=== PATIENT | male | born 1955 ===

== ENCOUNTER 2017-07-25 21:48 | Inpatient (IN) | payer MEDICARE, MEDICAID ==
[2017-07-25] MEDS ORDERED: Piperacillin/Tazobact 3.375 GM in Sodium Chloride 100 ML IVPB STA (22:02)
[2017-07-25] MEDS ORDERED: Vancomycin 1 gm/NS 200 ml 1 GM/200 ML BAG IVPB STA (22:02)
--- NOTE | 2017-07-25 22:04 | C.PDOC ---
History Of Present Illness Patient presents to the ER via EMS from home after he has been coughing intermittently for the past week and grew increasingly SOB tonight. Patient is nonverbal with some right sided weakness from a prior CVA in 2007. Patient is in acute respiratory distress, Hx was obtained from daughter. Time Seen by Provider: 07/25/17 22:01 Chief Complaint (Nursing): Shortness Of Breath History Per: Family History/Exam Limitations: clinical condition Onset/Duration Of Symptoms: Days Current Symptoms Are (Timing): Worse Initiating Event: Other (Not known) Exacerbating Factor(s): Coughing Current Respiratory Medications: See Home Med List Severity: Severe Pain Scale Rating Of: 9 Associated Symptoms: Fever, Chills, Sweating, Productive Cough, Heart Racing Reports Recently: Seen In ED, Treated By A Physician, Hospitalized Recent travel outside of the [place]: No Additional History Per: Family Past Medical History Reviewed: Historical Data, Nursing Documentation, Vital Signs Vital Signs: Last Vital Signs Temp 101.7 F H 07/25/17 22:04 Pulse 138 H 07/25/17 21:54 Resp 24 07/25/17 21:54 BP 95/50 L 07/25/17 21:54 Pulse Ox 85 L 07/25/17 22:49 - Medical History PMH: Alzheimer's Disease, Anxiety, Arthritis, Bipolar Disorder, CVA, Dementia, Diabetes, Fractures (non displaced avulsion fracture of right talus), HTN, Hypercholesterolemia Surgical History: Appendectomy - [facility] MEASUREMENT OF URINARY PRESSURE, VIA OPENING (01/17/17) PSYCHIA INTERV/EVAL NEC (08/24/14) RESECTION OF PROSTATE, ENDO (01/17/17) Family History: States: Unknown Family Hx - Social History Hx Tobacco Use: No Hx Alcohol Use: No Hx Substance Use: No - Immunization History Hx Tetanus Toxoid Vaccination: No Hx Influenza Vaccination: No Hx Pneumococcal Vaccination: No Review Of Systems Review Of Systems: ROS cannot be obtained secondary to pt's inabilty to answer questions. Physical Exam - Physical Exam Appears: In Acute Distress Skin: Diaphoretic Head: Normacephalic Eye(s): bilateral: Normal Inspection Oral Mucosa: Dry Lips: Other (Dry) Neck: Trachea Midline, Supple Lymphatic: No Adenopathy Chest: Symmetrical, No Tenderness Cardiovascular: Rhythm Regular (Tachycardic) Respiratory: Decreased Breath Sounds, No Rales, Rhonchi (Diffuse), No Wheezing Gastrointestinal/Abdominal: Bowel Sounds (Good), Soft, Distention Back: No CVA Tenderness Extremity: No Pedal Edema Extremity: Bilateral: Atraumatic, No Pedal Edema Pulses: Left Dorsalis Pedis: Normal, Right Dorsalis Pedis: Normal Neurological/Psych: Expressive Aphasia (Moans), Other (Decreased strength to the right side) Gait: Unable To Assess ED Course And Treatment - Laboratory Results Result Diagrams: 07/25/17 22:12 07/25/17 22:12 ECG: Interpreted By Me, Viewed By Me ECG Rhythm: Sinus Tachycardia (113), Nonspecific Changes O2 Sat by Pulse Oximetry: 85 Pulse Ox Interpretation: Abnormal (placed on bipap) - Radiology CXR: Interpreted by Me, Viewed By Me CXR Interpretation: Yes: Infiltrates (rll). No: Fracture, Pnemothorax Progress Note: blood work/septic work up. code sepsis called. spoke with dr heath/[facility] - will come and see the pt. accepted to [facility] Critical Care Time - Critical Care Note Total Time (in mins): 30 Documented critical care: time excludes all time spent performing seperately billable procedures. Disposition Discussed With : Bahman Urbina Comment: accepted the pt on his service and took over the care at10:50 PM Doctor Will See Patient In The: Hospital Counseled Patient/Family Regarding: Studies Performed, Diagnosis - Disposition Disposition: HOSPITALIZED Disposition Time: 22:01 Condition: CRITICAL Forms: [facility] (Paraguayan) - POA Present On Arrival: Poor Glycemic Control - Clinical Impression Clinical Impression: Respiratory distress, History of CVA (cerebrovascular accident), Pneumonia, Sepsis - Scribe Statement The provider has reviewed the documentation as recorded by the Scribsascha Bingham All medical record entries made by the Scribe were at my direction and personally dictated by me. I have reviewed the chart and agree that the record accurately reflects my personal performance of the history, physical exam, medical decision making, and the department course for this patient. I have also personally directed, reviewed, and agree with the discharge instructions and disposition. Decision To Admit - Pt Status Changed To: Hospital Disposition Of: Inpatient - Admit Certification Admit to Inpatient:: After my assessment, the patient will require hospitalization for at least two midnights. This is because of the severity of symptoms shown, intensity of services needed, and/or the medical risk in this patient being treated as an outpatient. - InPatient: Physician Admission Certification: I certify that this patient requires 2 or more midnights of care for the following reason:: After my assessment, the patient will require hospitalization for at least two midnights. This is because of the severity of symptoms shown, intensity of services needed, and/or the medical risk in this patient being treated as an outpatient. - . Bed Request Type: ICU Admitting Physician: Bahman Urbina Patient Diagnosis: Respiratory distress, History of CVA (cerebrovascular accident), Pneumonia, Sepsis
[2017-07-25] MEDS ORDERED: Sodium Chloride 0.9% 1,000 ML IV ONE (22:10)
[2017-07-25 22:17] LABS: VENOUS BLOOD GAS BASE EXCESS -3.3 mmol/L (0.0-2.0); VENOUS BLOOD GAS PCO2 40 mmHg (40-60); VENOUS BLOOD PH 7.35 (7.32-7.43)
[2017-07-25 22:22] LABS: BASO % 0.3 % (0.0-2.0); EOS % 0.1 % (0.0-4.0); HEMATOCRIT 30.3 % (35.0-51.0); LYMPH # 1.4 K/uL (1.0-4.3); LYMPH % 16.3 % (20.0-40.0); MEAN CORPUSCULAR HEMOGLOBIN 27.9 pg (27.0-31.0); MEAN CORPUSCULAR HGB CONC 33.5 g/dL (33.0-37.0); MEAN PLATELET VOLUME 10.2 fL (7.2-11.7); MONO # 0.5 K/uL (0.0-0.8); MONO % 5.9 % (0.0-10.0); RED CELL DISTRIBUTION WIDTH 13.7 % (11.5-14.5); WHITE BLOOD COUNT 8.5 K/uL (4.8-10.8)
[2017-07-25 22:24] LABS: MEAN CELL VOLUME 83.1 fL (80.0-94.0)
[2017-07-25 22:28] LABS: INR 1.2
[2017-07-25 22:31] LABS: BILIRUBIN,TOTAL 0.7 mg/dL (0.2-1.3); CALCIUM 8.8 mg/dl (8.6-10.4); MAGNESIUM 1.7 mg/dL (1.6-2.3); POTASSIUM 5.1 mmol/L (3.6-5.2); TOTAL PROTEIN 6.9 g/dL (6.3-8.3)
[2017-07-25] MEDS ORDERED: Piperacillin/Tazobact 3.375 gm 100 ML IVPB ONE (22:32)
[2017-07-25 22:37] LABS: ABG ALLEN TEST POS; ARTERIAL BLOOD GAS MODE BiPAP; DRAW SITE RRA
[2017-07-25] MEDS ORDERED: Sodium Chloride 0.9% 1,000 ML ONE (22:37)
[2017-07-25] MEDS: Albuterol-Ipratrop 3 mg / 0.5 (3 ml) UD IH SCH ×2 (22:40→22:57)
[2017-07-25] MEDS ORDERED: Albuterol-Ipratrop 3 mg / 0.5 (3 ml) UD ONE (22:41)
[2017-07-25 22:43] LABS: TROPONIN I 0.02 ng/mL (0.00-0.120)
[2017-07-25] MEDS ORDERED: Enoxaparin 40 mg Syringe SC STA (22:48)
[2017-07-25] MEDS ORDERED: Vancomycin 1 GM 1 GM/250 ML BAG IVPB ONE ×2 (23:00→23:12)
[2017-07-25] MEDS ORDERED: Enoxaparin 80 mg Syringe ONE (23:06)
[2017-07-25 23:50] LABS: RBC URINE 2 /hpf (0-3); TRANSITIONAL EPITHIAL < 1 /hpf (0-3); URINE BACTERIA OCC (<OCC); URINE BILIRUBIN NEGATIVE (NEGATIVE); URINE BLOOD NEGATIVE (NEGATIVE); URINE COLOR Yellow (YELLOW); URINE GLUCOSE (UA) 1+ mg/dL (Normal); URINE KETONE NEGATIVE (NEGATIVE); URINE LEUKOCYTE ESTERASE NEG Leu/uL (Negative); URINE PROTEIN 1+ mg/dL (NEGATIVE); URINE UROBILINOGEN NORMAL mg/dL (0.2-1.0); WBC URINE 1 /hpf (0-5)
--- NOTE | 2017-07-26 00:37 | CP.PCM.CON ---
History of Present Illness - History of Present Illness History of Present Illness: Chief complaint: Fever chills or shortness of breath History present illness: 61-year-old male with history of CVA, right-sided weakness, bipolar disease, dementia, diabetes, hypertension, hypercholesterolemia, weakness came to the emergency room with worsening shortness of breath. According to the family he was having some cough, and also mucus production, fever slowly got worse. Last night patient started having increasing shortness of breath, more lethargic , and fever high, and chills noted. Because of the worsening shortness of breath the patient was brought into the emergency room by the family member. In the emergency room patient had a high fever, chills, tachycardia, tachypnea, hypoxia, immediately patient was given oxygen, IV fluid and code sepsis started. With the BiPAP and oxygen patient showed some improvement. Fever got better. Patient was brought to the intensive care unit. Past medical history: Dementia hypertension CVA right-sided weakness bipolar disease hypertension hypercholesterolemia Surgical history appendectomy Allergies no known drug allergy Personal history reviewed from the chart Allergy no known drug allergy Family history noncontributory No history of smoking history noted. Review of system: Patient is currently awake and responding. Expressive aphagia noted. Right-sided weakness noted On BiPAP. Coughing noted, but mucus production is very less On examination: Improvement in the tachycardia, and also respiratory symptoms are improving. Chest bilateral rhonchi and wheezing noted. Regular heart sound, sinus minimal tachycardia Abdomen soft nontender. Extended is no pedal edema [employer] awake and alert, but unable to complicated, right-sided weakness noted. Labs reviewed Mild elevation of the WBC noted, significant AA gradient noted, chest x-ray right lower lung infiltrative changes noted Assessment and recommendation: 61-year-old male with history of CVA hypertension and hypercholesteremia and diabetes. Patient admitted now with the severe sepsis, complicated with the minimal hypertension. Likely secondary to pneumonia, underlying aspiration cannot be ruled out. Empirical antibiotic started, Vanco and Zosyn. IV fluid. Gentle hydration. Fever control. BiPAP. Glucose control. DVT and GI prophylaxis. Discussed with the family. Continue to monitor and intensive care unit. We'll keep him nothing by mouth, will follow the patient by ICU team Past Patient History - Infectious Disease Hx of Infectious Diseases: None - Past Medical History & Family History Past Medical History?: Yes - Past Social History Smoking Status: Unknown If Ever Smoked - CARDIAC Hx Hypercholesterolemia: Yes Hx Hypertension: Yes - PULMONARY Hx Respiratory Disorders: No - NEUROLOGICAL Hx Alzheimer's Disease: Yes Hx Dementia: Yes - HEENT Hx HEENT Problems: Yes Hx Cataracts: Yes (Both Cataract Surgery) - RENAL Hx Chronic Kidney Disease: No - ENDOCRINE/METABOLIC Hx Diabetes Mellitus Type 2: Yes - HEMATOLOGICAL/ONCOLOGICAL Hx Blood Disorders: No - INTEGUMENTARY Hx Dermatological Problems: No - MUSCULOSKELETAL/RHEUMATOLOGICAL Hx Arthritis: Yes Hx Fractures: Yes (non displaced avulsion fracture of right talus) - GASTROINTESTINAL Hx Gastrointestinal Disorders: No Hx Gastroesophageal Reflux: Yes - GENITOURINARY/GYNECOLOGICAL Hx Genitourinary Disorders: Yes Hx Prostate Problems: Yes (BPH) Other/Comment: Prostate Problem-taking Flomax @ home - PSYCHIATRIC Hx Anxiety: Yes Hx Bipolar Disorder: Yes Hx Substance Use: No - SURGICAL HISTORY Hx Appendectomy: Yes - ANESTHESIA Hx Anesthesia: Yes Hx Anesthesia Reactions: No Hx Malignant Hyperthermia: No Meds Allergies/Adverse Reactions: Allergies Allergy/AdvReac Type Severity Reaction Status Date / Time No Known Allergies Allergy Verified 01/15/17 08:52 - Medications Medications: Current Medications Acetaminophen (Tylenol 650 Mg Supp) 650 mg MO Q6 PRN PRN Reason: Temperature Albuterol/Ipratropium (Duoneb 3 Mg/0.5 Mg (3 Ml) Ud) 3 ml INH RQ6 [facility] Aspirin (Ecotrin) 81 mg PO DAILY [facility] Enoxaparin Sodium (Lovenox) 40 mg SC DAILY [facility] Piperacillin Sod/Tazobactam Sod (Zosyn 2.25 Gm Iv Premix) 2.25 gm in 50 mls @ 100 mls/hr IVPB Q6H [facility] Sodium Chloride (Sodium Chloride 0.9%) 1,000 mls @ 100 mls/hr IV .Q10H [facility] Vancomycin HCl 1 gm/ Sodium (Chloride) 250 mls @ 166.7 mls/hr IVPB Q24H [facility] Levetiracetam 500 mg/ Dextrose 105 mls @ 420 mls/hr IVPB Q12H [facility] Pantoprazole Sodium (Protonix Inj) 40 mg IVP DAILY [facility] Tamsulosin HCl (Flomax) 0.4 mg PO DAILY [facility] Valproate Sodium (Depakene Oral Soln) 250 mg PO BID [facility] Results - Vital Signs Recent Vital Signs: Last Vital Signs Temp 101.7 F H 09/06/17 22:04 Pulse 105 H 07/26/17 00:02 Resp 24 07/26/17 00:02 BP 86/56 L 07/26/17 00:02 Pulse Ox 100 07/26/17 00:02 - Labs Result Diagrams: 07/25/17 22:12 07/25/17 22:12 Labs: Laboratory Results - last 24 hr 07/25/17 23:39 Urine Color Yellow Urine Clarity Hazy Urine pH 5.0 Ur Specific [place] 1.018 Urine Protein 1+ H Urine Glucose (UA) 1+ H Urine Ketones Negative Urine Blood Negative Urine Nitrate Negative Urine Bilirubin Negative Urine Urobilinogen Normal Ur Leukocyte Esterase Neg Urine WBC (Auto) 1 Urine RBC (Auto) 2 Ur Squamous Epith Cells < 1 Ur Transition Epith Cell < 1 Urine Bacteria Occ H Hyaline Casts 3-5 H
[2017-07-26] MEDS ORDERED: Sodium Chloride 0.9% 1,000 ML IV SCH (00:45)
[2017-07-26] MEDS: Piperacill/Tazo 2.25gm in Dex 2.25 GM/50 ML BAG IVPB SCH ×4 (01:18→17:48)
[2017-07-26] MEDS: Sodium Chloride 0.9% 1,000 ML IV SCH ×4 (01:19→23:05)
[2017-07-26] MEDS: Albuterol-Ipratrop 3 mg / 0.5 (3 ml) UD INH SCH ×4 (01:20→19:38)
[2017-07-26 01:43] LABS: VENOUS BLOOD GAS BASE EXCESS -5.6 mmol/L (0.0-2.0); VENOUS BLOOD GAS MODE BiPAP; VENOUS BLOOD GAS PCO2 39 mmHg (40-60); VENOUS BLOOD PH 7.32 (7.32-7.43)
[2017-07-26] MEDS: levETIRAcetam 500 MG in Sodium Chloride 0.9% 100 ML IVPB SCH ×2 (02:01→13:15)
[2017-07-26 05:42] LABS: BASO % 0.2 % (0.0-2.0); EOS % 0.2 % (0.0-4.0); HEMATOCRIT 28.1 % (35.0-51.0); LYMPH # 0.6 K/uL (1.0-4.3); LYMPH % 8.2 % (20.0-40.0); MEAN CELL VOLUME 84.3 fL (80.0-94.0); MEAN CORPUSCULAR HEMOGLOBIN 27.7 pg (27.0-31.0); MEAN CORPUSCULAR HGB CONC 32.8 g/dL (33.0-37.0); MEAN PLATELET VOLUME 10.7 fL (7.2-11.7); MONO # 0.3 K/uL (0.0-0.8); NRBC % 0.1 % (0.0-2.0); PLATELET COUNT 121 K/uL (130-400); RED CELL DISTRIBUTION WIDTH 13.7 % (11.5-14.5); WHITE BLOOD COUNT 6.8 K/uL (4.8-10.8)
[2017-07-26 05:51] LABS: ABG ALLEN TEST POS; ARTERIAL BLOOD GAS MODE BiPAP; CARBOXYHEMOGLOBIN 1.3 % (0.5-1.5); DRAW SITE RR; HHB -0.2 % (0.0-5.0); METHEMOGLOBIN 0.9 % (0.0-3.0)
[2017-07-26 06:06] LABS: ALB/GLOB RATIO 0.9 (1.0-2.1); BILIRUBIN,TOTAL 0.6 mg/dL (0.2-1.3); CALCIUM 7.8 mg/dl (8.6-10.4); TOTAL PROTEIN 6.2 g/dL (6.3-8.3)
[2017-07-26 08:45] LABS: BASOPHIL 1 % (0-2); NEUTROPHIL 30 % (50-75); TOTAL CELLS COUNTED 100
--- NOTE | 2017-07-26 08:49 | RAD ---
PROCEDURE: CHEST RADIOGRAPH, 1 VIEW HISTORY: SOB COMPARISON: 01/15/2017 FINDINGS: LUNGS: The lungs are well inflated. There is bibasilar atelectasis. No focal consolidation. PLEURA: No pneumothorax or pleural fluid seen. CARDIOVASCULAR: Normal. OSSEOUS STRUCTURES: No significant abnormalities. VISUALIZED UPPER ABDOMEN: Normal. OTHER FINDINGS: None. IMPRESSION: No active pulmonary disease.
[2017-07-26] MEDS ORDERED: Enoxaparin 40 mg Syringe SC SCH (10:00)
[2017-07-26] MEDS ORDERED: (Novolin R) Insulin Human Regular 100 units/ml vial IV ONE (10:15)
[2017-07-26] MEDS ORDERED: Sodium Polystyrene Sulfonate Enema 30 gm/120 ml PR ONE (10:15)
[2017-07-26] MEDS: Valproic Acid 250 mg/5 ml UD Cup PO SCH ×2 (10:33→17:23)
[2017-07-26] MEDS: (Novolin R) Insulin Human Regular 100 units/ml vial SC SCH ×3 (11:30→23:00)
--- NOTE | 2017-07-26 12:27 | CARD ---
APPROVED REPORT EKG Measurement Heart [id number] <Conclusion> Sinus tachycardia Otherwise normal ECG
[2017-07-26 15:47] LABS: BASO % 0.1 % (0.0-2.0); HEMATOCRIT 25.8 % (35.0-51.0); LYMPH # 0.5 K/uL (1.0-4.3); LYMPH % 5.7 % (20.0-40.0); MEAN CELL VOLUME 82.8 fL (80.0-94.0); MEAN CORPUSCULAR HEMOGLOBIN 27.9 pg (27.0-31.0); MEAN CORPUSCULAR HGB CONC 33.7 g/dL (33.0-37.0); MEAN PLATELET VOLUME 9.2 fL (7.2-11.7); MONO # 0.3 K/uL (0.0-0.8); MONO % 3.5 % (0.0-10.0); PLATELET COUNT 122 K/uL (130-400); RED CELL DISTRIBUTION WIDTH 13.7 % (11.5-14.5); WHITE BLOOD COUNT 9.4 K/uL (4.8-10.8)
[2017-07-26 16:17] LABS: POTASSIUM 4.5 mmol/L (3.6-5.2)
[2017-07-26 16:19] LABS: BILIRUBIN,TOTAL 0.4 mg/dL (0.2-1.3); TOTAL PROTEIN 6.4 g/dL (6.3-8.3)
--- NOTE | 2017-07-26 17:22 | CP.PCM.HP ---
Past Patient History - Infectious Disease Hx of Infectious Diseases: None - Past Medical History & Family History Past Medical History?: Yes - Past Social History Smoking Status: Never Smoked - CARDIAC Hx Hypercholesterolemia: Yes Hx Hypertension: Yes - PULMONARY Hx Respiratory Disorders: No - NEUROLOGICAL HX Cerebrovascular Accident: Yes (right side weakness) - HEENT Hx HEENT Problems: Yes Hx Cataracts: Yes (Both Cataract Surgery) - RENAL Hx Chronic Kidney Disease: No - ENDOCRINE/METABOLIC Hx Diabetes Mellitus Type 2: Yes - HEMATOLOGICAL/ONCOLOGICAL Hx Blood Disorders: No - INTEGUMENTARY Hx Dermatological Problems: No - MUSCULOSKELETAL/RHEUMATOLOGICAL Hx Musculoskeletal Disorders: Yes Hx Arthritis: Yes Hx Falls: No Hx Fractures: Yes (non displaced avulsion fracture of right talus) - GASTROINTESTINAL Hx Gastrointestinal Disorders: Yes Hx Gastroesophageal Reflux: Yes - GENITOURINARY/GYNECOLOGICAL Hx Genitourinary Disorders: Yes Hx Prostate Problems: Yes (BPH) Other/Comment: Prostate Problem-taking Flomax @ home - PSYCHIATRIC Hx Psychophysiologic Disorder: Yes Hx Anxiety: Yes Hx Bipolar Disorder: Yes Hx Substance Use: No - SURGICAL HISTORY Hx Surgeries: Yes Hx Appendectomy: Yes - ANESTHESIA Hx Anesthesia: Yes Hx Anesthesia Reactions: No Hx Malignant Hyperthermia: No Meds Allergies/Adverse Reactions: Allergies Allergy/AdvReac Type Severity Reaction Status Date / Time No Known Allergies Allergy Verified 01/15/17 08:52 Physical Exam - Constitutional Appears: Well - Head Exam Head Exam: ATRAUMATIC, NORMAL INSPECTION, NORMOCEPHALIC - Eye Exam Eye Exam: EOMI, Normal appearance, PERRL Pupil Exam: NORMAL ACCOMODATION, PERRL - ENT Exam ENT Exam: Mucous Membranes Moist, Normal Exam - Neck Exam Neck exam: Positive for: Normal Inspection - Respiratory Exam Respiratory Exam: Decreased Breath Sounds - Cardiovascular Exam Cardiovascular Exam: REGULAR RHYTHM, +S1, +S2 - GI/Abdominal Exam GI & Abdominal Exam: Diminished Bowel Sounds, Soft - Rectal Exam Rectal Exam: Deferred Results - Vital Signs Recent Vital Signs: Last Vital Signs Temp 99.5 F 07/26/17 00:30 Pulse 90 07/26/17 07:03 Resp 14 07/26/17 07:03 BP 149/79 07/26/17 07:03 Pulse Ox 100 07/26/17 03:04 - Labs Result Diagrams: 07/26/17 15:44 07/26/17 15:44 Labs: Laboratory Results - last 24 hr 07/25/17 07/25/17 07/26/17 22:52 23:39 01:40 WBC RBC Hgb Hct MCV MCH MCHC RDW Plt Count MPV Neut % (Auto) Lymph % (Auto) [place] % (Auto) Eos % (Auto) Baso % (Auto) Neut # Lymph # [place] # Eos # Baso # Neutrophils % (Manual) Band Neutrophils % Lymphocytes % (Manual) Monocytes % (Manual) Basophils % (Manual) Platelet Estimate Hypochromasia (manual) Poikilocytosis (manual Anisocytosis (manual) [place] Cells Puncture Site pCO2 pO2 133 H HCO3 ABG pH ABG Total CO2 ABG O2 Saturation ABG Base Excess ABG Hemoglobin ABG Carboxyhemoglobin POC ABG HHb (Measured) ABG Methemoglobin Ruiz Test VBG pH 7.32 VBG pCO2 39 L VBG HCO3 20.6 VBG Total CO2 21.3 L VBG O2 Sat (Calc) 99.8 H VBG Base Excess -5.6 L VBG Potassium 5.6 H A-a O2 Difference Respiratory Index Hgb O2 Saturation Sodium 128.0 L Chloride 102.0 Glucose 375 H Lactate 1.5 Vent Mode FiO2 100.0 Inspiratory BiPAP Expiratory BiPAP 8 Potassium Carbon Dioxide Anion Gap BUN Creatinine Est GFR ( Amer) Est GFR (Non-Af Amer) POC Glucose (mg/dL) Random Glucose Calcium Total Bilirubin AST ALT Alkaline Phosphatase Total Creatine Kinase CK-MB (Mass) Troponin I, Quant Total Protein Albumin Globulin Albumin/Globulin Ratio Procalcitonin 10.99 H Venous Blood Potassium 5.6 H Urine Color Yellow Urine Clarity Hazy Urine pH 5.0 Ur Specific [place] 1.018 Urine Protein 1+ H Urine Glucose (UA) 1+ H Urine Ketones Negative Urine Blood Negative Urine Nitrate Negative Urine Bilirubin Negative Urine Urobilinogen Normal Ur Leukocyte Esterase Neg Urine WBC (Auto) 1 Urine RBC (Auto) 2 Ur Squamous Epith Cells < 1 Ur Transition Epith Cell < 1 Urine Bacteria Occ H Hyaline Casts 3-5 H 07/26/17 07/26/17 07/26/17 05:16 05:39 05:39 WBC 6.8 RBC 3.34 L Hgb 9.2 L Hct 28.1 L MCV 84.3 MCH 27.7 MCHC 32.8 L RDW 13.7 Plt Count 121 L D MPV 10.7 Neut % (Auto) 86.4 H Lymph % (Auto) 8.2 L [place] % (Auto) 5.0 Eos % (Auto) 0.2 Baso % (Auto) 0.2 Neut # 5.9 Lymph # 0.6 L [place] # 0.3 Eos # 0.0 Baso # 0.0 Neutrophils % (Manual) 30 L Band Neutrophils % 43 H* Lymphocytes % (Manual) 17 L Monocytes % (Manual) 9 Basophils % (Manual) 1 Platelet Estimate Slightly decreased L Hypochromasia (manual) Slight Poikilocytosis (manual Slight Anisocytosis (manual) Slight [place] Cells Slight Puncture Site Rr pCO2 38 pO2 477 H HCO3 19.0 L ABG pH 7.29 L ABG Total CO2 19.5 L ABG O2 Saturation 100.2 H ABG Base Excess -7.7 L ABG Hemoglobin 9.9 L ABG Carboxyhemoglobin 1.3 POC ABG HHb (Measured) -0.2 L ABG Methemoglobin 0.9 Ruiz Test Pos VBG pH VBG pCO2 VBG HCO3 VBG Total CO2 VBG O2 Sat (Calc) VBG Base Excess VBG Potassium A-a O2 Difference 189.0 Respiratory Index 0.4 Hgb O2 Saturation 98.0 Sodium 131 L Chloride 98 Glucose Lactate Vent Mode Bipap FiO2 100.0 Inspiratory BiPAP 16 Expiratory BiPAP 8 Potassium 6.0 H Carbon Dioxide 19 L Anion Gap 20 BUN 26 H Creatinine 1.8 H Est GFR ( Amer) 47 Est GFR (Non-Af Amer) 39 POC Glucose (mg/dL) Random Glucose 372 H Calcium 7.8 L Total Bilirubin 0.6 AST 22 ALT 28 Alkaline Phosphatase 72 Total Creatine Kinase 96 CK-MB (Mass) 2.02 Troponin I, Quant 0.0130 Total Protein 6.2 L Albumin 2.9 L Globulin 3.2 Albumin/Globulin Ratio 0.9 L Procalcitonin Venous Blood Potassium Urine Color Urine Clarity Urine pH Ur Specific [place] Urine Protein Urine Glucose (UA) Urine Ketones Urine Blood Urine Nitrate Urine Bilirubin Urine Urobilinogen Ur Leukocyte Esterase Urine WBC (Auto) Urine RBC (Auto) Ur Squamous Epith Cells Ur Transition Epith Cell Urine Bacteria Hyaline Casts 07/26/17 07/26/17 07/26/17 11:53 15:44 15:44 WBC 9.4 RBC 3.11 L Hgb 8.7 L Hct 25.8 L MCV 82.8 MCH 27.9 MCHC 33.7 RDW 13.7 Plt Count 122 L MPV 9.2 Neut % (Auto) 90.7 H Lymph % (Auto) 5.7 L [place] % (Auto) 3.5 Eos % (Auto) 0.0 Baso % (Auto) 0.1 Neut # 8.6 H Lymph # 0.5 L [place] # 0.3 Eos # 0.0 Baso # 0.0 Neutrophils % (Manual) Band Neutrophils % Lymphocytes % (Manual) Monocytes % (Manual) Basophils % (Manual) Platelet Estimate Hypochromasia (manual) Poikilocytosis (manual Anisocytosis (manual) Katar[place]yna Cells Puncture Site pCO2 pO2 HCO3 ABG pH ABG Total CO2 ABG O2 Saturation ABG Base Excess ABG Hemoglobin ABG Carboxyhemoglobin POC ABG HHb (Measured) ABG Methemoglobin Ruiz Test VBG pH VBG pCO2 VBG HCO3 VBG Total CO2 VBG O2 Sat (Calc) VBG Base Excess VBG Potassium A-a O2 Difference Respiratory Index Hgb O2 Saturation Sodium 132 Chloride 104 Glucose Lactate Vent Mode FiO2 Inspiratory BiPAP Expiratory BiPAP Potassium 4.5 Carbon Dioxide 18 L Anion Gap 15 BUN 25 H Creatinine 1.5 Est GFR ( Amer) 58 Est GFR (Non-Af Amer) 48 POC Glucose (mg/dL) 350 H Random Glucose 361 H Calcium 8.0 L Total Bilirubin 0.4 AST 18 ALT 27 Alkaline Phosphatase 67 Total Creatine Kinase CK-MB (Mass) Troponin I, Quant Total Protein 6.4 Albumin 3.2 L Globulin 3.2 Albumin/Globulin Ratio 1.0 Procalcitonin Venous Blood Potassium Urine Color Urine Clarity Urine pH Ur Specific [place] Urine Protein Urine Glucose (UA) Urine Ketones Urine Blood Urine Nitrate Urine Bilirubin Urine Urobilinogen Ur Leukocyte Esterase Urine WBC (Auto) Urine RBC (Auto) Ur Squamous Epith Cells Ur Transition Epith Cell Urine Bacteria Hyaline Casts 07/26/17 16:25 WBC RBC Hgb Hct MCV MCH MCHC RDW Plt Count MPV Neut % (Auto) Lymph % (Auto) [place] % (Auto) Eos % (Auto) Baso % (Auto) Neut # Lymph # [place] # Eos # Baso # Neutrophils % (Manual) Band Neutrophils % Lymphocytes % (Manual) Monocytes % (Manual) Basophils % (Manual) Platelet Estimate Hypochromasia (manual) Poikilocytosis (manual Anisocytosis (manual) [place] Cells Puncture Site pCO2 pO2 HCO3 ABG pH ABG Total CO2 ABG O2 Saturation ABG Base Excess ABG Hemoglobin ABG Carboxyhemoglobin POC ABG HHb (Measured) ABG Methemoglobin Ruiz Test VBG pH VBG pCO2 VBG HCO3 VBG Total CO2 VBG O2 Sat (Calc) VBG Base Excess VBG Potassium A-a O2 Difference Respiratory Index Hgb O2 Saturation Sodium Chloride Glucose Lactate Vent Mode FiO2 Inspiratory BiPAP Expiratory BiPAP Potassium Carbon Dioxide Anion Gap BUN Creatinine Est GFR ( Amer) Est GFR (Non-Af Amer) POC Glucose (mg/dL) 312 H Random Glucose Calcium Total Bilirubin AST ALT Alkaline Phosphatase Total Creatine Kinase CK-MB (Mass) Troponin I, Quant Total Protein Albumin Globulin Albumin/Globulin Ratio Procalcitonin Venous Blood Potassium Urine Color Urine Clarity Urine pH Ur Specific [place] Urine Protein Urine Glucose (UA) Urine Ketones Urine Blood Urine Nitrate Urine Bilirubin Urine Urobilinogen Ur Leukocyte Esterase Urine WBC (Auto) Urine RBC (Auto) Ur Squamous Epith Cells Ur Transition Epith Cell Urine Bacteria Hyaline Casts
[2017-07-26 18:07] LABS: METAMYELOCYTE 1 % (0-0); MYELOCYTE 1 % (0-0); NEUTROPHIL 83 % (50-75); TOTAL CELLS COUNTED 100
[2017-07-26 18:08] LABS: LARGE PLATELETS PRESENT; SMUDGE CELLS PRESENT
[2017-07-26] MEDS: levETIRAcetam 100 mg/ml (5ml) Oral Syringe PO SCH (22:59)
[2017-07-27] MEDS: Albuterol-Ipratrop 3 mg / 0.5 (3 ml) UD INH SCH ×4 (01:04→19:21)
[2017-07-27 05:58] LABS: ABG ALLEN TEST POS; DRAW SITE RR
[2017-07-27] MEDS: Piperacill/Tazo 2.25gm in Dex 2.25 GM/50 ML BAG IVPB SCH ×4 (06:30→18:11)
[2017-07-27 06:40] LABS: ALKALINE PHOSPHATASE 61 U/L (38-126); ALT/SGPT 25 U/L (21-72); AST/SGOT 20 U/L (17-59); BILIRUBIN,TOTAL 0.3 mg/dL (0.2-1.3); BLOOD UREA NITROGEN 23 mg/dL (9-20); CALCIUM 8.3 mg/dl (8.6-10.4); CARBON DIOXIDE 18 mmol/L (22-30); CHLORIDE 106 mmol/L (98-107); GFR AFRICAN-AMERICAN > 60; GLUCOSE,RANDOM 153 mg/dL (75-110); MAGNESIUM 2.2 mg/dL (1.6-2.3); PHOSPHOROUS 2.4 mg/dL (2.5-4.5); POTASSIUM 4.7 mmol/L (3.6-5.2); SODIUM 134 mmol/L (132-148)
[2017-07-27] MEDS: Sodium Chloride 0.9% 1,000 ML IV SCH ×3 (06:52→16:00)
--- NOTE | 2017-07-27 07:19 | RAD ---
HISTORY: pneumonia COMPARISON: Portable chest 07/25/2017. FINDINGS: LUNGS: No definitive interval infiltrate bilaterally. Inspiratory volume appears stable. PLEURA: No significant pleural effusion identified, no pneumothorax apparent. CARDIOVASCULAR: Normal. OSSEOUS STRUCTURES: No significant abnormalities. VISUALIZED UPPER ABDOMEN: Normal. OTHER FINDINGS: None. IMPRESSION: No acute infiltrate or pleural effusion identified in the interval. Examination appears stable as submitted.
[2017-07-27] MEDS: (Novolin R) Insulin Human Regular 100 units/ml vial SC SCH ×4 (08:08→22:45)
--- NOTE | 2017-07-27 08:13 | RAD ---
HISTORY: r/o pneumonia COMPARISON: Chest x-ray performed 07/26/17 TECHNIQUE: Chest, one view. FINDINGS: Examination limited by habitus and hypoinflation. LUNGS: Subtle patchy opacities within the medial right middle and lower lobes may reflect pneumonia. Silhouetting of the left hemidiaphragm may be related to atelectasis/infiltrate and or small effusion. PLEURA: No significant pleural effusion identified. No definite pneumothorax . CARDIOVASCULAR: Heart size top normal. Atherosclerotic calcifications of the aorta. OSSEOUS STRUCTURES: Osseous demineralization. Degenerative changes. VISUALIZED UPPER ABDOMEN: Unremarkable. OTHER FINDINGS: None. IMPRESSION: Subtle patchy opacities within the medial right middle and lower lobes may reflect pneumonia. Silhouetting of the left hemidiaphragm may be related to atelectasis/infiltrate and or small effusion.
[2017-07-27] MEDS: Enoxaparin 30 mg Syringe SC SCH (09:34)
[2017-07-27] MEDS: levETIRAcetam 100 mg/ml (5ml) Oral Syringe PO SCH ×2 (09:35→22:45)
[2017-07-27] MEDS: Valproic Acid 250 mg/5 ml UD Cup PO SCH ×2 (09:35→18:10)
[2017-07-27] MEDS: Pantoprazole 40 mg Susp UD PO SCH (09:35)
--- NOTE | 2017-07-27 11:38 | CT ---
PROCEDURE: CT Chest without contrast HISTORY: pneumonia COMPARISON: Chest radiograph 07/27/2017. No prior CT available for comparison. TECHNIQUE: Contiguous axial images were obtained through the chest without intravenous contrast enhancement. Sagittal and coronal reconstructions were performed. Radiation dose (DLP): 608 mGy-cm. This CT exam was performed using one or more of the following dose reduction techniques: Automated exposure control, adjustment of the mA and/or kV according to patient size, and/or use of iterative reconstruction technique. FINDINGS: LUNGS: Restrained motion degrades quality examination significantly. Scattered infiltrates are seen primarily at the bilateral lower lobes but also at the bilateral upper lobes and right middle lobe somewhat. There is associated ground-glass opacity. Central airways appear clear bilaterally. MEDIASTINUM: Unremarkable thoracic aorta. No aneurysm. Normal sized heart. Main pulmonary artery unremarkable. No vascular congestion. No lymphadenopathy. PLEURA: No pleural fluid. No pneumothorax. BONES: No fracture. No destructive lesion. UPPER ABDOMEN: A small hiatal hernia is encountered. OTHER FINDINGS: None. IMPRESSION: Polylobar lobar pneumonia is appreciated primarily at the bilateral lower lobes likely with alveolar and limited interstitial component. No significant lymphadenopathy. No pleural effusions bilaterally.
--- NOTE | 2017-07-27 16:20 | CP.PCM.CON ---
History of Present Illness - History of Present Illness History of Present Illness: 61-year-old male with history of CVA hypertension and hypercholesteremia and diabetes. Patient admitted now with the severe sepsis, complicated with the minimal hypertension. Likely secondary to pneumonia, underlying aspiration cannot be ruled out. Empirical antibiotic started, Vanco and Zosyn. PMH: Alzheimer's Disease, Anxiety, Arthritis, Bipolar Disorder, CVA, Dementia, Diabetes, Fractures (non displaced avulsion fracture of right talus), HTN, Hypercholesterolemia Surgical History: Appendectomy - [facility] Procedures MEASUREMENT OF URINARY PRESSURE, VIA OPENING (01/17/17) PSYCHIA INTERV/EVAL NEC (08/24/14) RESECTION OF PROSTATE, ENDO (01/17/17) Review of Systems - Review of Systems Systems not reviewed;Unavailable: Altered Mental Status, Uncooperative, Language Barrier - Constitutional Constitutional: As Per HPI - EENT Eyes: absent: As Per HPI, Blind Spots, Blurred Vision, Change in Vision, Decreased Night Vision, Diplopia, Discharge, Dry Eye, Exophthalmos, Floaters, Irritation, Itchy Eyes, Loss of Peripheral Vision, Pain, Photophobia, Requires Corrective Lenses, Sees Flashes, Spots in Vision, Tunnel Vision, Other Visual Disturbances, Loss of Vision, Other Ears: absent: As Per HPI, Decreased Hearing, Ear Discharge, Ear Pain, Tinnitus, Abnormal Hearing, Disequilibrium, Dizziness, Other Nose/Mouth/Throat: absent: As Per HPI, Epistaxis, Nasal Congestion, Nasal Discharge, Nasal Obstruction, Nasal Trauma, Nose Pain, Post Nasal Drip, Sinus Pain, Sinus Pressure, Bleeding Gums, Change in Voice, Dental Pain, Dry Mouth, Dysphagia, Halitosis, Hoarsness, Lip Swelling, Mouth Lesions, Mouth Pain, Odynophagia, Sore Throat, Throat Swelling, Tongue Swelling, Facial Pain, Neck Pain, Neck Mass, Other - Cardiovascular Cardiovascular: absent: As Per HPI, Acrocyanosis, Chest Pain, Chest Pain at Rest , Chest Pain with Activity, Claudication, Diaphoresis, Dyspnea, Dyspnea on Exertion, Edema, Irregular Heart Rhythm, Pain Radiating to Arm/Neck/Jaw, Leg Edema, Leg Ulcers, Lightheadedness, Orthopnea, Palpitations, Paroxysmal Nocturnal Dyspnea, Pedal Edema, Radiating Pain, Rapid Heart Rate, Slow Heart Rate, Syncope, Other - Respiratory Respiratory: As Per HPI, Cough, Dyspnea, Dyspnea on Exertion, Chest Congestion. absent: Hemoptysis - Gastrointestinal Gastrointestinal: absent: As Per HPI, Abdominal Pain, Belching, Bloating, Change in Bowel Habits, Change in Stool Character, Coffee Ground Emesis, Constipation, Cramping, Diarrhea, Dyspepsia, Dysphagia, Early Satiety, Excessive Flatus, Fecal Incontinence, Heartburn, Hematemesis, Hematochezia, Loose Stools, Melena, Nausea, Odynophagia, Temesmus, Vomiting, Other - Genitourinary Genitourinary: absent: As Per HPI, Change in Urinary Stream, Difficulty Urinating, Dysuria, Flank Pain, Hematuria, Pyuria, Nocturia, Urinary Incontinence, Urinary Frequency, Urinary Hesitance, Urinary Urgency, Voiding Freq/Small Amts, Freq UTI, Hx Renal/Bladder Calculi, Hx /Renal Surgery, Bladder Distension, Other - Musculoskeletal Musculoskeletal: absent: As Per HPI, Abnormal Gait, Arthralgias, Atrophy, Back Pain, Deformity, Joint Swelling, Limited Range of Motion, Loss of Height, Muscle Cramps, Muscle Weakness, Myalgias, Neck Pain, Numbness, Radiating Pain into Limb, Stiffness, Tingling, Other - Integumentary Integumentary: absent: As Per HPI, Acne, Alopecia, Bleeding Lesions, Change in Hair, Change in Nails, Change in Pigmentation, Changing Lesions, Dry Skin, Erythema, Furuncle, Hirsutism, Lesions, New Lesions, Non-Healing Lesions, Photosensitivity, Pruritus, Rash, Skin Pain, Skin Ulcer, Sores, Striae, Swelling , Unusual Bruising, Wounds, Jaundice, Other - Neurological Neurological: absent: As Per HPI, Abnormal Gait, Abnormal Hearing, Abnormal Movements, Abnormal Speech, Behavioral Changes, Burning Sensations, Confusion, Convulsions, Disequilibrium, Dizziness, Numbness, Focal Weakness, Frequent Falls , Headaches, Lack of Coordination, Loss of Vision, Memory Loss, Paresthesias, Radicular Pain, Restless Legs, Sensory Deficit, Syncope, Tingling, Tremor, Vertigo, Weakness, Other Visual Disturbances, Other - Psychiatric Psychiatric: absent: As Per HPI, Abnormal Sleep Pattern, Anhedonia, Anxiety, Auditory Hallucinations, Behavioral Changes, Change in Appetite, Change in Libido, Confusion, Depression, Difficulty Concentrating, Hallucinations, Homicidal Ideation, Hopelessness, Irritability, Memory Loss, Mood Swings, Panic Attacks, Paranoia, Suicidal Ideation, Visual Hallucinations, Tactile Hallucinations, Other - Endocrine Endocrine: absent: As Per HPI, Change in Body Appearance, Change in Libido, Cold Intolorance, Deepening of Voice, Excessive Sweating, Fatigue, Flushing, Heat Intolorance, Increase in Ring/Shoe/Hat Size, Palpitations, Polydipsia, Polyphagia, Polyuria, Other - Hematologic/Lymphatic Hematologic: absent: As Per HPI, Easy Bleeding, Easy Bruising, Lymphadenopathy, Other Past Patient History - Infectious Disease Hx of Infectious Diseases: None - Past Medical History & Family History Past Medical History?: Yes - Past Social History Smoking Status: Never Smoked - CARDIAC Hx Hypercholesterolemia: Yes Hx Hypertension: Yes - PULMONARY Hx Respiratory Disorders: No - NEUROLOGICAL HX Cerebrovascular Accident: Yes (right side weakness) - HEENT Hx HEENT Problems: Yes Hx Cataracts: Yes (Both Cataract Surgery) - RENAL Hx Chronic Kidney Disease: No - ENDOCRINE/METABOLIC Hx Diabetes Mellitus Type 2: Yes - HEMATOLOGICAL/ONCOLOGICAL Hx Blood Disorders: No - INTEGUMENTARY Hx Dermatological Problems: No - MUSCULOSKELETAL/RHEUMATOLOGICAL Hx Musculoskeletal Disorders: Yes Hx Arthritis: Yes Hx Falls: No Hx Fractures: Yes (non displaced avulsion fracture of right talus) - GASTROINTESTINAL Hx Gastrointestinal Disorders: Yes Hx Gastroesophageal Reflux: Yes - GENITOURINARY/GYNECOLOGICAL Hx Genitourinary Disorders: Yes Hx Prostate Problems: Yes (BPH) Other/Comment: Prostate Problem-taking Flomax @ home - PSYCHIATRIC Hx Psychophysiologic Disorder: Yes Hx Anxiety: Yes Hx Bipolar Disorder: Yes Hx Substance Use: No - SURGICAL HISTORY Hx Surgeries: Yes Hx Appendectomy: Yes - ANESTHESIA Hx Anesthesia: Yes Hx Anesthesia Reactions: No Hx Malignant Hyperthermia: No Meds Allergies/Adverse Reactions: Allergies Allergy/AdvReac Type Severity Reaction Status Date / Time No Known Allergies Allergy Verified 01/15/17 08:52 - Medications Medications: Current Medications Acetaminophen (Tylenol 650 Mg Supp) 650 mg [place] Q6 PRN PRN Reason: Temperature Acetaminophen (Tylenol 325mg Tab) 650 mg PO Q4 PRN PRN Reason: Pain, moderate (4-7) Albuterol/Ipratropium (Duoneb 3 Mg/0.5 Mg (3 Ml) Ud) 3 ml INH RQ6 [facility] Last Admin: 07/27/17 13:24 Dose: 3 ml Alprazolam (Xanax) 0.5 mg PO TID [facility] Last Admin: 07/27/17 13:07 Dose: 0.5 mg Aspirin (Ecotrin) 81 mg PO DAILY [facility] Last Admin: 07/27/17 09:35 Dose: 81 mg Enoxaparin Sodium (Lovenox) 30 mg SC DAILY [facility] Last Admin: 07/27/17 09:34 Dose: 30 mg Ergocalciferol (Drisdol 50,000 Intl Units Cap) 1 cap PO QWK [facility] Glipizide (Glucotrol Xl) 10 mg PO BIDCC [facility] Piperacillin Sod/Tazobactam Sod (Zosyn 2.25 Gm Iv Premix) 2.25 gm in 50 mls @ 100 mls/hr IVPB Q6H [facility] Last Admin: 07/27/17 13:00 Dose: 100 mls/hr Vancomycin HCl 1 gm/ Sodium (Chloride) 250 mls @ 166.7 mls/hr IVPB Q24H [facility] Sodium Chloride (Sodium Chloride 0.9%) 1,000 mls @ 100 mls/hr IV .Q10H [facility] Last Admin: 07/27/17 09:00 Dose: 100 mls/hr Insulin Human Regular (Novolin R) 0 unit SC ACHS [facility] PRN Reason: Protocol Last Admin: 07/27/17 13:01 Dose: 3 unit Levetiracetam (Keppra) 500 mg PO Q12 [facility] Last Admin: 07/27/17 09:35 Dose: 500 mg Lisinopril (Zestril) 5 mg PO DAILY [facility] Last Admin: 07/27/17 09:35 Dose: 5 mg Pantoprazole Sodium (Protonix Susp) 40 mg PO DAILY [facility] Last Admin: 07/27/17 09:35 Dose: 40 mg Quetiapine Fumarate (Seroquel) 200 mg PO HS [facility] Last Admin: 07/26/17 23:08 Dose: 200 mg Rosuvastatin Calcium (Crestor) 5 mg PO HS [facility] Last Admin: 07/26/17 22:59 Dose: 5 mg Tamsulosin HCl (Flomax) 0.4 mg PO DAILY [facility] Last Admin: 07/27/17 09:35 Dose: 0.4 mg Valproate Sodium (Depakene Oral Soln) 250 mg PO BID [facility] Last Admin: 07/27/17 09:35 Dose: 250 mg Physical Exam - Constitutional Appears: Confused, Cachectic, Chronically Ill - Head Exam Head Exam: ATRAUMATIC, NORMAL INSPECTION, NORMOCEPHALIC - Eye Exam Eye Exam: EOMI, PERRL. absent: Scleral icterus - ENT Exam ENT Exam: Mucous Membranes Dry, Normal External Ear Exam, Normal Oropharynx - Neck Exam Neck exam: Negative for: Lymphadenopathy, Thyromegaly - Respiratory Exam Respiratory Exam: Decreased Breath Sounds, Prolonged Expiratory Phase, Rhonchi - Cardiovascular Exam Cardiovascular Exam: Tachycardia, REGULAR RHYTHM, +S1, +S2 - GI/Abdominal Exam GI & Abdominal Exam: Diminished Bowel Sounds, Distended, Soft. absent: Tenderness - Rectal Exam Rectal Exam: Deferred - Exam Exam: NORMAL INSPECTION - Extremities Exam Extremities exam: Positive for: pedal pulses present. Negative for: calf tenderness, pedal edema, tenderness - Back Exam Back exam: absent: CVA tenderness (L), CVA tenderness (R) - Neurological Exam Neurological exam: Alert, Altered, CN II-XII Intact, Motor Sensory Deficit - Psychiatric Exam Psychiatric exam: Depressed - Skin Skin Exam: Dry, Intact Results - Vital Signs Recent Vital Signs: Last Vital Signs Temp 98.4 F 07/27/17 14:34 Pulse 101 H 07/27/17 14:34 Resp 18 07/27/17 14:34 BP 134/86 07/27/17 14:34 Pulse Ox 98 07/27/17 14:34 - Labs Result Diagrams: 07/26/17 15:44 07/27/17 06:20 Labs: Laboratory Results - last 24 hr 07/26/17 07/26/17 07/26/17 15:44 15:44 16:25 Neutrophils % (Manual) 83 H Band Neutrophils % 4 H Lymphocytes % (Manual) 6 L Monocytes % (Manual) 5 Metamyelocytes % 1 H Myelocytes % 1 H Hypersegmented Polys Present Smudge Cells Present Platelet Estimate Decreased L Large Platelets Present Polychromasia Slight Poikilocytosis (manual Slight Anisocytosis (manual) Slight Puncture Site pCO2 pO2 HCO3 ABG pH ABG Total CO2 ABG O2 Saturation ABG Base Excess Ruiz Test ABG Potassium Sodium Chloride Glucose Lactate Liter Flow Potassium Carbon Dioxide 18 L Anion Gap 15 BUN 25 H Creatinine 1.5 Est GFR ( Amer) 58 Est GFR (Non-Af Amer) 48 POC Glucose (mg/dL) 312 H Random Glucose 361 H Calcium 8.0 L Phosphorus Magnesium Total Bilirubin 0.4 AST 18 ALT 27 Alkaline Phosphatase 67 Total Protein 6.4 Albumin Globulin 3.2 Albumin/Globulin Ratio 1.0 Arterial Blood Potassium 07/26/17 07/27/17 07/27/17 21:29 05:18 06:20 Neutrophils % (Manual) Band Neutrophils % Lymphocytes % (Manual) Monocytes % (Manual) Metamyelocytes % Myelocytes % Hypersegmented Polys Smudge Cells Platelet Estimate Large Platelets Polychromasia Poikilocytosis (manual Anisocytosis (manual) Puncture Site Rr pCO2 35 pO2 68 L HCO3 22.9 ABG pH 7.40 ABG Total CO2 22.8 ABG O2 Saturation 96.4 ABG Base Excess -2.5 L Ruiz Test Pos ABG Potassium 4.5 Sodium 138.0 134 Chloride 109.0 H 106 Glucose 170 H Lactate 0.8 Liter Flow 3.0 Potassium 4.7 Carbon Dioxide 18 L Anion Gap 15 BUN 23 H Creatinine 1.2 Est GFR ( Amer) > 60 Est GFR (Non-Af Amer) > 60 POC Glucose (mg/dL) 244 H Random Glucose 153 H Calcium 8.3 L Phosphorus 2.4 L Magnesium 2.2 Total Bilirubin 0.3 AST 20 ALT 25 Alkaline Phosphatase 61 Total Protein 6.0 L Albumin 2.9 L Globulin 3.0 Albumin/Globulin Ratio 1.0 Arterial Blood Potassium 4.5 07/27/17 07:49 Neutrophils % (Manual) Band Neutrophils % Lymphocytes % (Manual) Monocytes % (Manual) Metamyelocytes % Myelocytes % Hypersegmented Polys Smudge Cells Platelet Estimate Large Platelets Polychromasia Poikilocytosis (manual Anisocytosis (manual) Puncture Site pCO2 pO2 HCO3 ABG pH ABG Total CO2 ABG O2 Saturation ABG Base Excess Ruiz Test ABG Potassium Sodium Chloride Glucose Lactate Liter Flow Potassium Carbon Dioxide Anion Gap BUN Creatinine Est GFR ( Amer) Est GFR (Non-Af Amer) POC Glucose (mg/dL) 179 H Random Glucose Calcium Phosphorus Magnesium Total Bilirubin AST ALT Alkaline Phosphatase Total Protein Albumin Globulin Albumin/Globulin Ratio Arterial Blood Potassium Assessment & Plan (1) History of CVA (cerebrovascular accident) Status: Acute (2) Sepsis Status: Acute (3) Acute renal insufficiency Status: Acute (4) Agitation Status: Acute (5) Altered mental status Status: Acute (6) Anxiety Status: Acute (7) Aspiration pneumonia Status: Acute (8) CVA (cerebral infarction) Status: Acute (9) Confusion Status: Acute (10) Confusion after a seizure Status: Acute (11) Dehydration Status: Acute (12) Dementia Status: Acute (13) Diabetes Status: Acute (14) History of cerebrovascular accident (CVA) with residual deficit Status: Acute (15) History of seizures Status: Acute (16) Lethargy Status: Acute (17) Neurocognitive disorder Status: Acute - Assessment and Plan (Free Text) Assessment: 61-year-old male with history of CVA, right-sided weakness, bipolar disease, dementia, diabetes, hypertension, hypercholesterolemia, weakness came to the emergency room with worsening shortness of breath. According to the family he was having some cough, and also mucus production, fever slowly got worse. Last night patient started having increasing shortness of breath, more lethargic , and fever high, and chills noted. Because of the worsening shortness of breath the patient was brought into the emergency room by the family member. In the emergency room patient had a high fever, chills, tachycardia, tachypnea, hypoxia, immediately patient was given oxygen, IV fluid and code sepsis started. With the BiPAP and oxygen patient showed some improvement. Past medical history: Dementia hypertension CVA right-sided weakness bipolar disease hypertension hypercholesterolemia Surgical history appendectomy Allergies no known drug allergy Allergy no known drug allergy Family history noncontributory No history of smoking history noted. Assessment and recommendation: 61-year-old male with history of CVA hypertension and hypercholesteremia and diabetes. Patient admitted now with the severe sepsis, complicated with the minimal hypertension. Likely secondary to pneumonia, underlying aspiration cannot be ruled out. Empirical antibiotic started, Vanco and Zosyn.
--- NOTE | 2017-07-27 17:16 | CP.PCM.CON ---
Past Patient History - Infectious Disease Hx of Infectious Diseases: None - Past Medical History & Family History Past Medical History?: Yes - Past Social History Smoking Status: Never Smoked - CARDIAC Hx Hypercholesterolemia: Yes Hx Hypertension: Yes - PULMONARY Hx Respiratory Disorders: No - NEUROLOGICAL HX Cerebrovascular Accident: Yes (right side weakness) - HEENT Hx HEENT Problems: Yes Hx Cataracts: Yes (Both Cataract Surgery) - RENAL Hx Chronic Kidney Disease: No - ENDOCRINE/METABOLIC Hx Diabetes Mellitus Type 2: Yes - HEMATOLOGICAL/ONCOLOGICAL Hx Blood Disorders: No - INTEGUMENTARY Hx Dermatological Problems: No - MUSCULOSKELETAL/RHEUMATOLOGICAL Hx Musculoskeletal Disorders: Yes Hx Arthritis: Yes Hx Falls: No Hx Fractures: Yes (non displaced avulsion fracture of right talus) - GASTROINTESTINAL Hx Gastrointestinal Disorders: Yes Hx Gastroesophageal Reflux: Yes - GENITOURINARY/GYNECOLOGICAL Hx Genitourinary Disorders: Yes Hx Prostate Problems: Yes (BPH) Other/Comment: Prostate Problem-taking Flomax @ home - PSYCHIATRIC Hx Psychophysiologic Disorder: Yes Hx Anxiety: Yes Hx Bipolar Disorder: Yes Hx Substance Use: No - SURGICAL HISTORY Hx Surgeries: Yes Hx Appendectomy: Yes - ANESTHESIA Hx Anesthesia: Yes Hx Anesthesia Reactions: No Hx Malignant Hyperthermia: No Meds Allergies/Adverse Reactions: Allergies Allergy/AdvReac Type Severity Reaction Status Date / Time No Known Allergies Allergy Verified 01/15/17 08:52 - Medications Medications: Current Medications Acetaminophen (Tylenol 650 Mg Supp) 650 mg [place] Q6 PRN PRN Reason: Temperature Acetaminophen (Tylenol 325mg Tab) 650 mg PO Q4 PRN PRN Reason: Pain, moderate (4-7) Albuterol/Ipratropium (Duoneb 3 Mg/0.5 Mg (3 Ml) Ud) 3 ml INH RQ6 [facility] Last Admin: 07/27/17 13:24 Dose: 3 ml Alprazolam (Xanax) 0.5 mg PO TID [facility] Last Admin: 07/27/17 13:07 Dose: 0.5 mg Aspirin (Ecotrin) 81 mg PO DAILY [facility] Last Admin: 07/27/17 09:35 Dose: 81 mg Enoxaparin Sodium (Lovenox) 30 mg SC DAILY [facility] Last Admin: 07/27/17 09:34 Dose: 30 mg Ergocalciferol (Drisdol 50,000 Intl Units Cap) 1 cap PO QWK [facility] Glipizide (Glucotrol Xl) 10 mg PO BIDCC [facility] Piperacillin Sod/Tazobactam Sod (Zosyn 2.25 Gm Iv Premix) 2.25 gm in 50 mls @ 100 mls/hr IVPB Q6H [facility] Last Admin: 07/27/17 13:00 Dose: 100 mls/hr Vancomycin HCl 1 gm/ Sodium (Chloride) 250 mls @ 166.7 mls/hr IVPB Q24H [facility] Sodium Chloride (Sodium Chloride 0.9%) 1,000 mls @ 100 mls/hr IV .Q10H [facility] Last Admin: 07/27/17 09:00 Dose: 100 mls/hr Insulin Human Regular (Novolin R) 0 unit SC ACHS [facility] PRN Reason: Protocol Last Admin: 07/27/17 13:01 Dose: 3 unit Levetiracetam (Keppra) 500 mg PO Q12 [facility] Last Admin: 07/27/17 09:35 Dose: 500 mg Lisinopril (Zestril) 5 mg PO DAILY [facility] Last Admin: 07/27/17 09:35 Dose: 5 mg Pantoprazole Sodium (Protonix Susp) 40 mg PO DAILY [facility] Last Admin: 07/27/17 09:35 Dose: 40 mg Quetiapine Fumarate (Seroquel) 200 mg PO HS [facility] Last Admin: 07/26/17 23:08 Dose: 200 mg Rosuvastatin Calcium (Crestor) 5 mg PO HS [facility] Last Admin: 07/26/17 22:59 Dose: 5 mg Tamsulosin HCl (Flomax) 0.4 mg PO DAILY [facility] Last Admin: 07/27/17 09:35 Dose: 0.4 mg Valproate Sodium (Depakene Oral Soln) 250 mg PO BID [facility] Last Admin: 07/27/17 09:35 Dose: 250 mg Results - Vital Signs Recent Vital Signs: Last Vital Signs Temp 98.1 F 07/27/17 16:27 Pulse 98 H 07/27/17 16:27 Resp 22 07/27/17 16:27 BP 174/83 H 07/27/17 16:27 Pulse Ox 97 07/27/17 16:27 - Labs Result Diagrams: 07/26/17 15:44 07/27/17 06:20 Labs: Laboratory Results - last 24 hr 07/26/17 07/26/17 07/27/17 15:44 21:29 05:18 Neutrophils % (Manual) 83 H Band Neutrophils % 4 H Lymphocytes % (Manual) 6 L Monocytes % (Manual) 5 Metamyelocytes % 1 H Myelocytes % 1 H Hypersegmented Polys Present Smudge Cells Present Platelet Estimate Decreased L Large Platelets Present Polychromasia Slight Poikilocytosis (manual Slight Anisocytosis (manual) Slight Puncture Site Rr pCO2 35 pO2 68 L HCO3 22.9 ABG pH 7.40 ABG Total CO2 22.8 ABG O2 Saturation 96.4 ABG Base Excess -2.5 L Ruiz Test Pos ABG Potassium 4.5 Sodium 138.0 Chloride 109.0 H Glucose 170 H Lactate 0.8 Liter Flow 3.0 Potassium Carbon Dioxide Anion Gap BUN Creatinine Est GFR ( Amer) Est GFR (Non-Af Amer) POC Glucose (mg/dL) 244 H Random Glucose Calcium Phosphorus Magnesium Total Bilirubin AST ALT Alkaline Phosphatase Total Protein Albumin Globulin Albumin/Globulin Ratio Arterial Blood Potassium 4.5 07/27/17 07/27/17 07/27/17 06:20 07:49 12:15 Neutrophils % (Manual) Band Neutrophils % Lymphocytes % (Manual) Monocytes % (Manual) Metamyelocytes % Myelocytes % Hypersegmented Polys Smudge Cells Platelet Estimate Large Platelets Polychromasia Poikilocytosis (manual Anisocytosis (manual) Puncture Site pCO2 pO2 HCO3 ABG pH ABG Total CO2 ABG O2 Saturation ABG Base Excess Ruiz Test ABG Potassium Sodium 134 Chloride 106 Glucose Lactate Liter Flow Potassium 4.7 Carbon Dioxide 18 L Anion Gap 15 BUN 23 H Creatinine 1.2 Est GFR ( Amer) > 60 Est GFR (Non-Af Amer) > 60 POC Glucose (mg/dL) 179 H 246 H Random Glucose 153 H Calcium 8.3 L Phosphorus 2.4 L Magnesium 2.2 Total Bilirubin 0.3 AST 20 ALT 25 Alkaline Phosphatase 61 Total Protein 6.0 L Albumin 2.9 L Globulin 3.0 Albumin/Globulin Ratio 1.0 Arterial Blood Potassium
[2017-07-27] MEDS: GlipiZIDE 10 mg SR Tab PO SCH (17:30)
--- NOTE | 2017-07-27 19:06 | CP.PCM.PN ---
Subjective - Date & Time of Evaluation Date of Evaluation: 07/27/17 Time of Evaluation: 10:40 - Subjective Subjective: clinically same Objective - Vital Signs/Intake and Output Vital Signs (last 24 hours): Temp Pulse Resp BP Pulse Ox 98.1 F 98 H 22 174/83 H 97 07/27/17 16:27 07/27/17 16:27 07/27/17 16:27 07/27/17 16:27 07/27/17 16:27 Intake and Output: 07/27/17 07/28/17 18:59 06:59 Intake Total 820 Balance 820 - Medications Medications: Current Medications Acetaminophen (Tylenol 650 Mg Supp) 650 mg [place] Q6 PRN PRN Reason: Temperature Acetaminophen (Tylenol 325mg Tab) 650 mg PO Q4 PRN PRN Reason: Pain, moderate (4-7) Albuterol/Ipratropium (Duoneb 3 Mg/0.5 Mg (3 Ml) Ud) 3 ml INH RQ6 [facility] Last Admin: 07/27/17 13:24 Dose: 3 ml Alprazolam (Xanax) 0.5 mg PO TID [facility] Last Admin: 07/27/17 18:10 Dose: 0.5 mg Aspirin (Ecotrin) 81 mg PO DAILY [facility] Last Admin: 07/27/17 09:35 Dose: 81 mg Enoxaparin Sodium (Lovenox) 30 mg SC DAILY [facility] Last Admin: 07/27/17 09:34 Dose: 30 mg Ergocalciferol (Drisdol 50,000 Intl Units Cap) 1 cap PO QWK [facility] Glipizide (Glucotrol Xl) 10 mg PO BIDCC [facility] Last Admin: 07/27/17 17:30 Dose: 10 mg Piperacillin Sod/Tazobactam Sod (Zosyn 2.25 Gm Iv Premix) 2.25 gm in 50 mls @ 100 mls/hr IVPB Q6H [facility] Last Admin: 07/27/17 18:11 Dose: 100 mls/hr Vancomycin HCl 1 gm/ Sodium (Chloride) 250 mls @ 166.7 mls/hr IVPB Q24H [facility] Sodium Chloride (Sodium Chloride 0.9%) 1,000 mls @ 100 mls/hr IV .Q10H [facility] Last Admin: 07/27/17 16:00 Dose: Not Given Insulin Human Regular (Novolin R) 0 unit SC ACHS [facility] PRN Reason: Protocol Last Admin: 07/27/17 17:30 Dose: 3 unit Levetiracetam (Keppra) 500 mg PO Q12 [facility] Last Admin: 07/27/17 09:35 Dose: 500 mg Lisinopril (Zestril) 5 mg PO DAILY [facility] Last Admin: 07/27/17 09:35 Dose: 5 mg Pantoprazole Sodium (Protonix Susp) 40 mg PO DAILY [facility] Last Admin: 07/27/17 09:35 Dose: 40 mg Quetiapine Fumarate (Seroquel) 200 mg PO HS [facility] Last Admin: 07/26/17 23:08 Dose: 200 mg Rosuvastatin Calcium (Crestor) 5 mg PO HS [facility] Last Admin: 07/26/17 22:59 Dose: 5 mg Tamsulosin HCl (Flomax) 0.4 mg PO DAILY [facility] Last Admin: 07/27/17 09:35 Dose: 0.4 mg Valproate Sodium (Depakene Oral Soln) 250 mg PO BID [facility] Last Admin: 07/27/17 18:10 Dose: 250 mg - Labs Labs: 07/26/17 15:44 07/27/17 06:20 PT 14.0 SECONDS (9.7-12.2) H 07/25/17 22:12 INR 1.2 07/25/17 22:12 APTT 46 SECONDS (21-34) H 07/25/17 22:12 - Constitutional Appears: Well - Head Exam Head Exam: ATRAUMATIC, NORMAL INSPECTION, NORMOCEPHALIC - Eye Exam Eye Exam: EOMI, Normal appearance, PERRL Pupil Exam: NORMAL ACCOMODATION, PERRL - ENT Exam ENT Exam: Mucous Membranes Moist, Normal Exam - Neck Exam Neck Exam: Full ROM, Normal Inspection. absent: Lymphadenopathy - Respiratory Exam Respiratory Exam: Decreased Breath Sounds - Cardiovascular Exam Cardiovascular Exam: REGULAR RHYTHM, +S1, +S2 - GI/Abdominal Exam GI & Abdominal Exam: Soft, Diminished Bowel Sounds - Rectal Exam Rectal Exam: Deferred
[2017-07-28] MEDS: Piperacill/Tazo 2.25gm in Dex 2.25 GM/50 ML BAG IVPB SCH ×4 (00:18→18:04)
[2017-07-28] MEDS: Albuterol-Ipratrop 3 mg / 0.5 (3 ml) UD INH SCH ×3 (01:07→13:23)
[2017-07-28 02:32] VITALS: RESP 20
[2017-07-28] MEDS: Sodium Chloride 0.9% 1,000 ML IV SCH ×3 (02:57→15:21)
[2017-07-28] MEDS: (Novolin R) Insulin Human Regular 100 units/ml vial SC SCH ×4 (08:00→22:24)
[2017-07-28] MEDS: Enoxaparin 30 mg Syringe SC SCH (09:13)
[2017-07-28] MEDS: GlipiZIDE 10 mg SR Tab PO SCH ×2 (09:13→18:05)
[2017-07-28] MEDS: Pantoprazole 40 mg Susp UD PO SCH (09:15)
[2017-07-28] MEDS: levETIRAcetam 100 mg/ml (5ml) Oral Syringe PO SCH ×2 (09:16→22:26)
[2017-07-28] MEDS: Valproic Acid 250 mg/5 ml UD Cup PO SCH ×2 (09:17→18:06)
--- NOTE | 2017-07-28 15:39 | CP.PCM.PN ---
Subjective - Date & Time of Evaluation Date of Evaluation: 07/28/17 Time of Evaluation: 11:00 - Subjective Subjective: clinically same Objective - Vital Signs/Intake and Output Vital Signs (last 24 hours): Temp Pulse Resp BP Pulse Ox 98.0 F 95 H 20 159/81 H 99 07/27/17 23:15 07/28/17 07:30 07/28/17 05:30 07/28/17 05:30 07/27/17 23:15 Intake and Output: 07/28/17 07/28/17 06:59 18:59 Intake Total 1600 Output Total 2 Balance 1598 - Medications Medications: Current Medications Acetaminophen (Tylenol 650 Mg Supp) [address] [place] Q6 PRN PRN Reason: Temperature Acetaminophen (Tylenol 325mg Tab) 650 mg PO Q4 PRN PRN Reason: Pain, moderate (4-7) Albuterol/Ipratropium (Duoneb 3 Mg/0.5 Mg (3 Ml) Ud) 3 ml INH RQ6 [facility] Last Admin: 07/28/17 13:23 Dose: 3 ml Alprazolam (Xanax) 0.5 mg PO TID [facility] Last Admin: 07/28/17 14:27 Dose: 0.5 mg Aspirin (Ecotrin) 81 mg PO DAILY [facility] Last Admin: 07/28/17 09:13 Dose: 81 mg Enoxaparin Sodium (Lovenox) 30 mg SC DAILY [facility] Last Admin: 07/28/17 09:13 Dose: 30 mg Ergocalciferol (Drisdol 50,000 Intl Units Cap) 1 cap PO QWK [facility] Glipizide (Glucotrol Xl) 10 mg PO BIDCC [facility] Last Admin: 07/28/17 09:13 Dose: 10 mg Piperacillin Sod/Tazobactam Sod (Zosyn 2.25 Gm Iv Premix) 2.25 gm in 50 mls @ 100 mls/hr IVPB Q6H [facility] Last Admin: 07/28/17 12:28 Dose: 100 mls/hr Vancomycin HCl 1 gm/ Sodium (Chloride) 250 mls @ 166.7 mls/hr IVPB Q24H [facility] Last Admin: 07/27/17 22:45 Dose: 166.7 mls/hr Sodium Chloride (Sodium Chloride 0.9%) 1,000 mls @ 100 mls/hr IV .Q10H [facility] Last Admin: 07/28/17 15:21 Dose: 100 mls/hr Insulin Human Regular (Novolin R) 0 unit SC ACHS [facility] PRN Reason: Protocol Last Admin: 07/28/17 12:30 Dose: Not Given Levetiracetam (Keppra) 500 mg PO Q12 [facility] Last Admin: 07/28/17 09:16 Dose: 500 mg Lisinopril (Zestril) 5 mg PO DAILY [facility] Last Admin: 07/28/17 09:13 Dose: 5 mg Pantoprazole Sodium (Protonix Susp) 40 mg PO DAILY [facility] Last Admin: 07/28/17 09:15 Dose: 40 mg Quetiapine Fumarate (Seroquel) 200 mg PO HS [facility] Last Admin: 07/27/17 22:45 Dose: 200 mg Rosuvastatin Calcium (Crestor) 5 mg PO HS [facility] Last Admin: 07/27/17 22:45 Dose: 5 mg Tamsulosin HCl (Flomax) 0.4 mg PO DAILY [facility] Last Admin: 07/28/17 09:13 Dose: 0.4 mg Valproate Sodium (Depakene Oral Soln) 250 mg PO BID [facility] Last Admin: 07/28/17 09:17 Dose: 250 mg - Labs Labs: 07/26/17 15:44 07/27/17 06:20 PT 14.0 SECONDS (9.7-12.2) H 07/25/17 22:12 INR 1.2 07/25/17 22:12 APTT 46 SECONDS (21-34) H 07/25/17 22:12 - Constitutional Appears: Well - Head Exam Head Exam: ATRAUMATIC, NORMAL INSPECTION, NORMOCEPHALIC - Eye Exam Eye Exam: EOMI, Normal appearance, PERRL Pupil Exam: NORMAL ACCOMODATION, PERRL - ENT Exam ENT Exam: Mucous Membranes Moist, Normal Exam - Neck Exam Neck Exam: Full ROM, Normal Inspection. absent: Lymphadenopathy - Respiratory Exam Respiratory Exam: Decreased Breath Sounds - Cardiovascular Exam Cardiovascular Exam: REGULAR RHYTHM, +S1, +S2 - GI/Abdominal Exam GI & Abdominal Exam: Soft, Diminished Bowel Sounds - Rectal Exam Rectal Exam: Deferred
--- NOTE | 2017-07-28 18:14 | CP.PCM.PN ---
Subjective - Date & Time of Evaluation Date of Evaluation: 07/28/17 Time of Evaluation: 18:14 Objective - Vital Signs/Intake and Output Vital Signs (last 24 hours): Temp Pulse Resp BP Pulse Ox 98 F 110 H 20 111/75 99 07/28/17 15:42 07/28/17 15:42 07/28/17 15:42 07/28/17 15:42 07/28/17 15:42 Intake and Output: 07/28/17 07/28/17 06:59 18:59 Intake Total 1600 Output Total 2 Balance 1598 - Medications Medications: Current Medications Acetaminophen (Tylenol 650 Mg Supp) 650 mg [place] Q6 PRN PRN Reason: Temperature Acetaminophen (Tylenol 325mg Tab) 650 mg PO Q4 PRN PRN Reason: Pain, moderate (4-7) Albuterol/Ipratropium (Duoneb 3 Mg/0.5 Mg (3 Ml) Ud) 3 ml INH RQ6 [facility] Last Admin: 07/28/17 13:23 Dose: 3 ml Alprazolam (Xanax) 0.5 mg PO TID [facility] Last Admin: 07/28/17 18:04 Dose: 0.5 mg Aspirin (Ecotrin) 81 mg PO DAILY [facility] Last Admin: 07/28/17 09:13 Dose: 81 mg Enoxaparin Sodium (Lovenox) 30 mg SC DAILY [facility] Last Admin: 07/28/17 09:13 Dose: 30 mg Ergocalciferol (Drisdol 50,000 Intl Units Cap) 1 cap PO QWK [facility] Glipizide (Glucotrol Xl) 10 mg PO BIDCC [facility] Last Admin: 07/28/17 18:05 Dose: 10 mg Piperacillin Sod/Tazobactam Sod (Zosyn 2.25 Gm Iv Premix) 2.25 gm in 50 mls @ 100 mls/hr IVPB Q6H [facility] Last Admin: 07/28/17 18:04 Dose: 100 mls/hr Vancomycin HCl 1 gm/ Sodium (Chloride) 250 mls @ 166.7 mls/hr IVPB Q24H [facility] Last Admin: 07/27/17 22:45 Dose: 166.7 mls/hr Sodium Chloride (Sodium Chloride 0.9%) 1,000 mls @ 100 mls/hr IV .Q10H [facility] Last Admin: 07/28/17 15:21 Dose: 100 mls/hr Insulin Human Regular (Novolin R) 0 unit SC ACHS [facility] PRN Reason: Protocol Last Admin: 07/28/17 18:02 Dose: 3 unit Levetiracetam (Keppra) 500 mg PO Q12 [facility] Last Admin: 07/28/17 09:16 Dose: 500 mg Lisinopril (Zestril) 5 mg PO DAILY [facility] Last Admin: 07/28/17 09:13 Dose: 5 mg Pantoprazole Sodium (Protonix Susp) 40 mg PO DAILY [facility] Last Admin: 07/28/17 09:15 Dose: 40 mg Quetiapine Fumarate (Seroquel) 200 mg PO HS [facility] Last Admin: 07/27/17 22:45 Dose: 200 mg Rosuvastatin Calcium (Crestor) 5 mg PO HS [facility] Last Admin: 07/27/17 22:45 Dose: 5 mg Tamsulosin HCl (Flomax) 0.4 mg PO DAILY [facility] Last Admin: 07/28/17 09:13 Dose: 0.4 mg Valproate Sodium (Depakene Oral Soln) 250 mg PO BID [facility] Last Admin: 07/28/17 18:06 Dose: 250 mg - Labs Labs: 07/26/17 15:44 07/27/17 06:20 PT 14.0 SECONDS (9.7-12.2) H 07/25/17 22:12 INR 1.2 07/25/17 22:12 APTT 46 SECONDS (21-34) H 07/25/17 22:12
[2017-07-29] MEDS: Albuterol-Ipratrop 3 mg / 0.5 (3 ml) UD INH SCH ×5 (01:20→19:51)
[2017-07-29] MEDS: Piperacill/Tazo 2.25gm in Dex 2.25 GM/50 ML BAG IVPB SCH ×4 (02:43→19:29)
[2017-07-29] MEDS: (Novolin R) Insulin Human Regular 100 units/ml vial SC SCH ×4 (08:00→21:49)
[2017-07-29] MEDS: GlipiZIDE 10 mg SR Tab PO SCH ×2 (10:24→18:41)
[2017-07-29] MEDS: Pantoprazole 40 mg Susp UD PO SCH (10:24)
[2017-07-29] MEDS: levETIRAcetam 100 mg/ml (5ml) Oral Syringe PO SCH ×2 (10:25→22:24)
[2017-07-29] MEDS: Valproic Acid 250 mg/5 ml UD Cup PO SCH ×2 (10:27→19:29)
[2017-07-29] MEDS: Enoxaparin 30 mg Syringe SC SCH (10:28)
--- NOTE | 2017-07-29 11:01 | CP.PCM.PN ---
Subjective - Date & Time of Evaluation Date of Evaluation: 07/29/17 Time of Evaluation: 09:40 - Subjective Subjective: clinically same Objective - Vital Signs/Intake and Output Vital Signs (last 24 hours): Temp Pulse Resp BP Pulse Ox 99.8 F H 102 H 20 110/69 92 L 07/28/17 23:18 07/29/17 07:40 07/28/17 23:18 07/28/17 23:18 07/28/17 23:18 Intake and Output: 07/29/17 07/29/17 06:59 18:59 Intake Total 1200 800 Balance 1200 800 - Medications Medications: Current Medications Acetaminophen (Tylenol 650 Mg Supp) 650 mg [place] Q6 PRN PRN Reason: Temperature Acetaminophen (Tylenol 325mg Tab) 650 mg PO Q4 PRN PRN Reason: Pain, moderate (4-7) Albuterol/Ipratropium (Duoneb 3 Mg/0.5 Mg (3 Ml) Ud) 3 ml INH RQ6 [facility] Last Admin: 07/29/17 07:44 Dose: Not Given Alprazolam (Xanax) 0.5 mg PO TID [facility] Last Admin: 07/29/17 10:24 Dose: 0.5 mg Aspirin (Ecotrin) 81 mg PO DAILY [facility] Last Admin: 07/29/17 10:24 Dose: 81 mg Enoxaparin Sodium (Lovenox) 30 mg SC DAILY [facility] Last Admin: 07/29/17 10:28 Dose: 30 mg Ergocalciferol (Drisdol 50,000 Intl Units Cap) 1 cap PO QWK [facility] Glipizide (Glucotrol Xl) 10 mg PO BIDCC [facility] Last Admin: 07/29/17 10:24 Dose: 10 mg Piperacillin Sod/Tazobactam Sod (Zosyn 2.25 Gm Iv Premix) 2.25 gm in 50 mls @ 100 mls/hr IVPB Q6H [facility] Last Admin: 07/29/17 06:36 Dose: 100 mls/hr Vancomycin HCl 1 gm/ Sodium (Chloride) 250 mls @ 166.7 mls/hr IVPB Q24H [facility] Last Admin: 07/28/17 22:25 Dose: 166.7 mls/hr Sodium Chloride (Sodium Chloride 0.9%) 1,000 mls @ 100 mls/hr IV .Q10H [facility] Last Admin: 07/28/17 15:21 Dose: 100 mls/hr Insulin Human Regular (Novolin R) 0 unit SC ACHS [facility] PRN Reason: Protocol Last Admin: 07/28/17 22:24 Dose: Not Given Levetiracetam (Keppra) 500 mg PO Q12 [facility] Last Admin: 07/29/17 10:25 Dose: 500 mg Lisinopril (Zestril) 5 mg PO DAILY [facility] Last Admin: 07/29/17 10:24 Dose: 5 mg Pantoprazole Sodium (Protonix Susp) 40 mg PO DAILY [facility] Last Admin: 07/29/17 10:24 Dose: 40 mg Quetiapine Fumarate (Seroquel) 200 mg PO HS [facility] Last Admin: 07/28/17 22:26 Dose: 200 mg Rosuvastatin Calcium (Crestor) 5 mg PO HS [facility] Last Admin: 07/28/17 22:27 Dose: 5 mg Tamsulosin HCl (Flomax) 0.4 mg PO DAILY [facility] Last Admin: 07/29/17 10:24 Dose: 0.4 mg Valproate Sodium (Depakene Oral Soln) 250 mg PO BID [facility] Last Admin: 07/29/17 10:27 Dose: 250 mg - Labs Labs: 07/26/17 15:44 07/27/17 06:20 PT 14.0 SECONDS (9.7-12.2) H 07/25/17 22:12 INR 1.2 07/25/17 22:12 APTT 46 SECONDS (21-34) H 07/25/17 22:12 - Constitutional Appears: Well - Head Exam Head Exam: ATRAUMATIC, NORMAL INSPECTION, NORMOCEPHALIC - Eye Exam Eye Exam: EOMI, Normal appearance, PERRL Pupil Exam: NORMAL ACCOMODATION, PERRL - ENT Exam ENT Exam: Mucous Membranes Moist, Normal Exam - Neck Exam Neck Exam: Full ROM, Normal Inspection. absent: Lymphadenopathy - Respiratory Exam Respiratory Exam: Decreased Breath Sounds - Cardiovascular Exam Cardiovascular Exam: REGULAR RHYTHM, +S1, +S2 - GI/Abdominal Exam GI & Abdominal Exam: Soft, Diminished Bowel Sounds - Rectal Exam Rectal Exam: Deferred
--- NOTE | 2017-07-29 14:40 | CP.PCM.PN ---
Subjective - Date & Time of Evaluation Date of Evaluation: 07/29/17 Time of Evaluation: 22:00 - Subjective Subjective: CULTURES ALL NEG THUS FAR AGITATED AT TIMES NAD Objective - Vital Signs/Intake and Output Vital Signs (last 24 hours): Temp Pulse Resp BP Pulse Ox 99.8 F H 102 H 20 110/69 92 L 07/28/17 23:18 07/29/17 07:40 07/28/17 23:18 07/28/17 23:18 07/28/17 23:18 Intake and Output: 07/29/17 07/29/17 06:59 18:59 Intake Total 1200 800 Balance 1200 800 - Medications Medications: Current Medications Acetaminophen (Tylenol 650 Mg Supp) 650 mg [place] Q6 PRN PRN Reason: Temperature Acetaminophen (Tylenol 325mg Tab) 650 mg PO Q4 PRN PRN Reason: Pain, moderate (4-7) Albuterol/Ipratropium (Duoneb 3 Mg/0.5 Mg (3 Ml) Ud) 3 ml INH RQ6 [facility] Last Admin: 07/29/17 14:17 Dose: 3 ml Alprazolam (Xanax) 0.5 mg PO TID [facility] Last Admin: 07/29/17 13:24 Dose: 0.5 mg Aspirin (Ecotrin) 81 mg PO DAILY [facility] Last Admin: 07/29/17 10:24 Dose: 81 mg Enoxaparin Sodium (Lovenox) 30 mg SC DAILY [facility] Last Admin: 07/29/17 10:28 Dose: 30 mg Ergocalciferol (Drisdol 50,000 Intl Units Cap) 1 cap PO QWK [facility] Glipizide (Glucotrol Xl) 10 mg PO BIDCC [facility] Last Admin: 07/29/17 10:24 Dose: 10 mg Piperacillin Sod/Tazobactam Sod (Zosyn 2.25 Gm Iv Premix) 2.25 gm in 50 mls @ 100 mls/hr IVPB Q6H [facility] Last Admin: 07/29/17 12:23 Dose: 100 mls/hr Vancomycin HCl 1 gm/ Sodium (Chloride) 250 mls @ 166.7 mls/hr IVPB Q24H [facility] Last Admin: 07/28/17 22:25 Dose: 166.7 mls/hr Insulin Human Regular (Novolin R) 0 unit SC ACHS [facility] PRN Reason: Protocol Last Admin: 07/29/17 12:17 Dose: Not Given Levetiracetam (Keppra) 500 mg PO Q12 [facility] Last Admin: 07/29/17 10:25 Dose: 500 mg Lisinopril (Zestril) 5 mg PO DAILY [facility] Last Admin: 07/29/17 10:24 Dose: 5 mg Pantoprazole Sodium (Protonix Susp) 40 mg PO DAILY [facility] Last Admin: 07/29/17 10:24 Dose: 40 mg Quetiapine Fumarate (Seroquel) 200 mg PO HS [facility] Last Admin: 07/28/17 22:26 Dose: 200 mg Rosuvastatin Calcium (Crestor) 5 mg PO HS [facility] Last Admin: 07/28/17 22:27 Dose: 5 mg Tamsulosin HCl (Flomax) 0.4 mg PO DAILY [facility] Last Admin: 07/29/17 10:24 Dose: 0.4 mg Valproate Sodium (Depakene Oral Soln) 250 mg PO BID [facility] Last Admin: 07/29/17 10:27 Dose: 250 mg - Labs Labs: 07/26/17 15:44 07/27/17 06:20 PT 14.0 SECONDS (9.7-12.2) H 07/25/17 22:12 INR 1.2 07/25/17 22:12 APTT 46 SECONDS (21-34) H 07/25/17 22:12 - Constitutional Appears: Non-toxic, Chronically Ill - Head Exam Head Exam: NORMOCEPHALIC - Eye Exam Eye Exam: PERRL - ENT Exam ENT Exam: Mucous Membranes Dry, Normal External Ear Exam - Neck Exam Neck Exam: absent: Lymphadenopathy - Respiratory Exam Respiratory Exam: Decreased Breath Sounds - Cardiovascular Exam Cardiovascular Exam: REGULAR RHYTHM - GI/Abdominal Exam GI & Abdominal Exam: Distended, Soft Assessment and Plan (1) History of CVA (cerebrovascular accident) Status: Acute (2) Sepsis Status: Acute (3) Acute renal insufficiency Status: Acute (4) Agitation Status: Acute (5) Altered mental status Status: Acute (6) Anxiety Status: Acute (7) Aspiration pneumonia Status: Acute (8) CVA (cerebral infarction) Status: Acute (9) Confusion Status: Acute (10) Confusion after a seizure Status: Acute (11) Dehydration Status: Acute (12) Dementia Status: Acute (13) Diabetes Status: Acute (14) History of cerebrovascular accident (CVA) with residual deficit Status: Acute (15) History of seizures Status: Acute (16) Lethargy Status: Acute (17) Neurocognitive disorder Status: Acute
--- NOTE | 2017-07-29 15:23 | CP.PCM.PN ---
Subjective - Date & Time of Evaluation Date of Evaluation: 07/29/17 Time of Evaluation: 15:23 Objective - Vital Signs/Intake and Output Vital Signs (last 24 hours): Temp Pulse Resp BP Pulse Ox 99.8 F H 102 H 20 110/69 92 L 07/28/17 23:18 07/29/17 07:40 07/28/17 23:18 07/28/17 23:18 07/28/17 23:18 Intake and Output: 07/29/17 07/29/17 06:59 18:59 Intake Total 1200 800 Balance 1200 800 - Medications Medications: Current Medications Acetaminophen (Tylenol 650 Mg Supp) 650 mg [place] Q6 PRN PRN Reason: Temperature Acetaminophen (Tylenol 325mg Tab) 650 mg PO Q4 PRN PRN Reason: Pain, moderate (4-7) Albuterol/Ipratropium (Duoneb 3 Mg/0.5 Mg (3 Ml) Ud) 3 ml INH RQ6 [facility] Last Admin: 07/29/17 14:17 Dose: 3 ml Alprazolam (Xanax) 0.5 mg PO TID [facility] Last Admin: 07/29/17 13:24 Dose: 0.5 mg Aspirin (Ecotrin) 81 mg PO DAILY [facility] Last Admin: 07/29/17 10:24 Dose: 81 mg Enoxaparin Sodium (Lovenox) 30 mg SC DAILY [facility] Last Admin: 07/29/17 10:28 Dose: 30 mg Ergocalciferol (Drisdol 50,000 Intl Units Cap) 1 cap PO QWK [facility] Glipizide (Glucotrol Xl) 10 mg PO BIDCC [facility] Last Admin: 07/29/17 10:24 Dose: 10 mg Piperacillin Sod/Tazobactam Sod (Zosyn 2.25 Gm Iv Premix) 2.25 gm in 50 mls @ 100 mls/hr IVPB Q6H [facility] Last Admin: 07/29/17 12:23 Dose: 100 mls/hr Vancomycin HCl 1 gm/ Sodium (Chloride) 250 mls @ 166.7 mls/hr IVPB Q24H [facility] Last Admin: 07/28/17 22:25 Dose: 166.7 mls/hr Insulin Human Regular (Novolin R) 0 unit SC ACHS [facility] PRN Reason: Protocol Last Admin: 07/29/17 12:17 Dose: Not Given Levetiracetam (Keppra) 500 mg PO Q12 [facility] Last Admin: 07/29/17 10:25 Dose: 500 mg Lisinopril (Zestril) 5 mg PO DAILY [facility] Last Admin: 07/29/17 10:24 Dose: 5 mg Pantoprazole Sodium (Protonix Susp) 40 mg PO DAILY [facility] Last Admin: 07/29/17 10:24 Dose: 40 mg Quetiapine Fumarate (Seroquel) 200 mg PO HS [facility] Last Admin: 07/28/17 22:26 Dose: 200 mg Rosuvastatin Calcium (Crestor) 5 mg PO HS [facility] Last Admin: 07/28/17 22:27 Dose: 5 mg Tamsulosin HCl (Flomax) 0.4 mg PO DAILY [facility] Last Admin: 07/29/17 10:24 Dose: 0.4 mg Valproate Sodium (Depakene Oral Soln) 250 mg PO BID [facility] Last Admin: 07/29/17 10:27 Dose: 250 mg - Labs Labs: 07/26/17 15:44 07/27/17 06:20 PT 14.0 SECONDS (9.7-12.2) H 07/25/17 22:12 INR 1.2 07/25/17 22:12 APTT 46 SECONDS (21-34) H 07/25/17 22:12
[2017-07-29] MEDS: Sodium Chloride 0.9% 1,000 ML IV SCH (18:43)
[2017-07-30] MEDS: Piperacill/Tazo 2.25gm in Dex 2.25 GM/50 ML BAG IVPB SCH ×4 (01:05→18:02)
[2017-07-30] MEDS: Albuterol-Ipratrop 3 mg / 0.5 (3 ml) UD INH SCH ×5 (01:49→19:04)
[2017-07-30] MEDS: (Novolin R) Insulin Human Regular 100 units/ml vial SC SCH ×4 (08:10→21:20)
[2017-07-30] MEDS: Valproic Acid 250 mg/5 ml UD Cup PO SCH ×2 (11:09→18:04)
[2017-07-30] MEDS: levETIRAcetam 100 mg/ml (5ml) Oral Syringe PO SCH ×2 (11:10→22:19)
[2017-07-30] MEDS: GlipiZIDE 10 mg SR Tab PO SCH ×2 (11:11→16:33)
[2017-07-30] MEDS: Enoxaparin 30 mg Syringe SC SCH (11:11)
[2017-07-30] MEDS: Pantoprazole 40 mg Susp UD PO SCH (11:11)
--- NOTE | 2017-07-30 12:35 | CP.PCM.PN ---
Subjective - Date & Time of Evaluation Date of Evaluation: 07/30/17 Time of Evaluation: 08:00 - Subjective Subjective: less agitated less congestion Objective - Vital Signs/Intake and Output Vital Signs (last 24 hours): Temp Pulse Resp BP Pulse Ox 98.1 F 75 20 152/76 H 98 07/30/17 08:00 07/30/17 09:00 07/30/17 08:00 07/30/17 08:00 07/30/17 08:00 Intake and Output: 07/30/17 07/30/17 06:59 18:59 Intake Total 1300 900 Balance 1300 900 - Medications Medications: Current Medications Acetaminophen (Tylenol 650 Mg Supp) 650 mg [place] Q6 PRN PRN Reason: Temperature Acetaminophen (Tylenol 325mg Tab) 650 mg PO Q4 PRN PRN Reason: Pain, moderate (4-7) Last Admin: 07/29/17 15:44 Dose: 650 mg Albuterol/Ipratropium (Duoneb 3 Mg/0.5 Mg (3 Ml) Ud) 3 ml INH RQ6 [facility] Last Admin: 07/30/17 07:14 Dose: Not Given Alprazolam (Xanax) 0.5 mg PO TID [facility] Last Admin: 07/30/17 11:10 Dose: 0.5 mg Aspirin (Ecotrin) 81 mg PO DAILY [facility] Last Admin: 07/30/17 11:11 Dose: 81 mg Enoxaparin Sodium (Lovenox) 30 mg SC DAILY [facility] Last Admin: 07/30/17 11:11 Dose: 30 mg Ergocalciferol (Drisdol 50,000 Intl Units Cap) 1 cap PO QWK [facility] Glipizide (Glucotrol Xl) 10 mg PO BIDCC [facility] Last Admin: 07/30/17 11:11 Dose: 10 mg Piperacillin Sod/Tazobactam Sod (Zosyn 2.25 Gm Iv Premix) 2.25 gm in 50 mls @ 100 mls/hr IVPB Q6H [facility] Last Admin: 07/30/17 06:26 Dose: 100 mls/hr Vancomycin HCl 1 gm/ Sodium (Chloride) 250 mls @ 166.7 mls/hr IVPB Q24H [facility] Last Admin: 07/29/17 22:25 Dose: 166.7 mls/hr Insulin Human Regular (Novolin R) 0 unit SC ACHS [facility] PRN Reason: Protocol Last Admin: 07/30/17 08:10 Dose: 2 unit Levetiracetam (Keppra) 500 mg PO Q12 [facility] Last Admin: 07/30/17 11:10 Dose: 500 mg Lisinopril (Zestril) 5 mg PO DAILY [facility] Last Admin: 07/30/17 11:11 Dose: 5 mg Pantoprazole Sodium (Protonix Susp) 40 mg PO DAILY [facility] Last Admin: 07/30/17 11:11 Dose: 40 mg Quetiapine Fumarate (Seroquel) 200 mg PO HS [facility] Last Admin: 07/29/17 22:24 Dose: 200 mg Rosuvastatin Calcium (Crestor) 5 mg PO HS [facility] Last Admin: 07/29/17 22:23 Dose: 5 mg Tamsulosin HCl (Flomax) 0.4 mg PO DAILY [facility] Last Admin: 07/30/17 11:11 Dose: 0.4 mg Valproate Sodium (Depakene Oral Soln) 250 mg PO BID [facility] Last Admin: 07/30/17 11:09 Dose: 250 mg - Labs Labs: 07/26/17 15:44 07/27/17 06:20 PT 14.0 SECONDS (9.7-12.2) H 07/25/17 22:12 INR 1.2 07/25/17 22:12 APTT 46 SECONDS (21-34) H 07/25/17 22:12 - Constitutional Appears: Non-toxic, Chronically Ill - Head Exam Head Exam: NORMOCEPHALIC - Eye Exam Eye Exam: PERRL - ENT Exam ENT Exam: Mucous Membranes Dry, Normal External Ear Exam - Neck Exam Neck Exam: absent: Lymphadenopathy - Respiratory Exam Respiratory Exam: Decreased Breath Sounds - Cardiovascular Exam Cardiovascular Exam: REGULAR RHYTHM - GI/Abdominal Exam GI & Abdominal Exam: Distended Assessment and Plan (1) History of CVA (cerebrovascular accident) Status: Acute (2) Sepsis Status: Acute (3) Acute renal insufficiency Status: Acute (4) Agitation Status: Acute (5) Altered mental status Status: Acute (6) Anxiety Status: Acute (7) Aspiration pneumonia Status: Acute (8) CVA (cerebral infarction) Status: Acute (9) Confusion Status: Acute (10) Confusion after a seizure Status: Acute (11) Dehydration Status: Acute (12) Dementia Status: Acute (13) Diabetes Status: Acute (14) History of cerebrovascular accident (CVA) with residual deficit Status: Acute (15) History of seizures Status: Acute (16) Lethargy Status: Acute (17) Neurocognitive disorder Status: Acute
--- NOTE | 2017-07-30 17:51 | CP.PCM.PN ---
Subjective - Date & Time of Evaluation Date of Evaluation: 07/30/17 Time of Evaluation: 17:51 Objective - Vital Signs/Intake and Output Vital Signs (last 24 hours): Temp Pulse Resp BP Pulse Ox 99 F 83 20 172/91 H 97 07/30/17 15:36 07/30/17 15:36 07/30/17 15:36 07/30/17 15:36 07/30/17 15:36 Intake and Output: 07/30/17 07/30/17 06:59 18:59 Intake Total 1300 900 Balance 1300 900 - Medications Medications: Current Medications Acetaminophen (Tylenol 650 Mg Supp) 650 mg [place] Q6 PRN PRN Reason: Temperature Acetaminophen (Tylenol 325mg Tab) 650 mg PO Q4 PRN PRN Reason: Pain, moderate (4-7) Last Admin: 07/29/17 15:44 Dose: 650 mg Albuterol/Ipratropium (Duoneb 3 Mg/0.5 Mg (3 Ml) Ud) 3 ml INH RQ6 [facility] Last Admin: 07/30/17 13:26 Dose: Not Given Alprazolam (Xanax) 0.5 mg PO TID [facility] Last Admin: 07/30/17 13:45 Dose: 0.5 mg Aspirin (Ecotrin) 81 mg PO DAILY [facility] Last Admin: 07/30/17 11:11 Dose: 81 mg Enoxaparin Sodium (Lovenox) 30 mg SC DAILY [facility] Last Admin: 07/30/17 11:11 Dose: 30 mg Ergocalciferol (Drisdol 50,000 Intl Units Cap) 1 cap PO QWK [facility] Glipizide (Glucotrol Xl) 10 mg PO BIDCC [facility] Last Admin: 07/30/17 16:33 Dose: 10 mg Piperacillin Sod/Tazobactam Sod (Zosyn 2.25 Gm Iv Premix) 2.25 gm in 50 mls @ 100 mls/hr IVPB Q6H [facility] Last Admin: 07/30/17 13:45 Dose: 100 mls/hr Vancomycin HCl 1 gm/ Sodium (Chloride) 250 mls @ 166.7 mls/hr IVPB Q24H [facility] Last Admin: 07/29/17 22:25 Dose: 166.7 mls/hr Insulin Human Regular (Novolin R) 0 unit SC ACHS [facility] PRN Reason: Protocol Last Admin: 07/30/17 17:19 Dose: 2 unit Levetiracetam (Keppra) 500 mg PO Q12 [facility] Last Admin: 07/30/17 11:10 Dose: 500 mg Lisinopril (Zestril) 5 mg PO DAILY [facility] Last Admin: 07/30/17 11:11 Dose: 5 mg Pantoprazole Sodium (Protonix Susp) 40 mg PO DAILY [facility] Last Admin: 07/30/17 11:11 Dose: 40 mg Quetiapine Fumarate (Seroquel) 200 mg PO HS [facility] Last Admin: 07/29/17 22:24 Dose: 200 mg Rosuvastatin Calcium (Crestor) 5 mg PO HS [facility] Last Admin: 07/29/17 22:23 Dose: 5 mg Tamsulosin HCl (Flomax) 0.4 mg PO DAILY [facility] Last Admin: 07/30/17 11:11 Dose: 0.4 mg Valproate Sodium (Depakene Oral Soln) 250 mg PO BID [facility] Last Admin: 07/30/17 11:09 Dose: 250 mg - Labs Labs: 07/26/17 15:44 07/27/17 06:20 PT 14.0 SECONDS (9.7-12.2) H 07/25/17 22:12 INR 1.2 07/25/17 22:12 APTT 46 SECONDS (21-34) H 07/25/17 22:12
--- NOTE | 2017-07-30 21:46 | CP.PCM.PN ---
Subjective - Date & Time of Evaluation Date of Evaluation: 07/30/17 Time of Evaluation: 11:20 - Subjective Subjective: clinically same Objective - Vital Signs/Intake and Output Vital Signs (last 24 hours): Temp Pulse Resp BP Pulse Ox 98.5 F 83 20 172/91 H 97 07/30/17 19:07 07/30/17 15:36 07/30/17 15:36 07/30/17 15:36 07/30/17 15:36 Intake and Output: 07/30/17 07/31/17 18:59 06:59 Intake Total 900 Balance 900 - Medications Medications: Current Medications Acetaminophen (Tylenol 650 Mg Supp) 650 mg [place] Q6 PRN PRN Reason: Temperature Acetaminophen (Tylenol 325mg Tab) 650 mg PO Q4 PRN PRN Reason: Pain, moderate (4-7) Last Admin: 07/29/17 15:44 Dose: 650 mg Albuterol/Ipratropium (Duoneb 3 Mg/0.5 Mg (3 Ml) Ud) 3 ml INH RQ6 [facility] Last Admin: 07/30/17 19:04 Dose: 3 ml Alprazolam (Xanax) 0.5 mg PO TID [facility] Last Admin: 07/30/17 18:04 Dose: 0.5 mg Aspirin (Ecotrin) 81 mg PO DAILY [facility] Last Admin: 07/30/17 11:11 Dose: 81 mg Enoxaparin Sodium (Lovenox) 30 mg SC DAILY [facility] Last Admin: 07/30/17 11:11 Dose: 30 mg Ergocalciferol (Drisdol 50,000 Intl Units Cap) 1 cap PO QWK [facility] Glipizide (Glucotrol Xl) 10 mg PO BIDCC [facility] Last Admin: 07/30/17 16:33 Dose: 10 mg Piperacillin Sod/Tazobactam Sod (Zosyn 2.25 Gm Iv Premix) 2.25 gm in 50 mls @ 100 mls/hr IVPB Q6H [facility] Last Admin: 07/30/17 18:02 Dose: 100 mls/hr Vancomycin HCl 1 gm/ Sodium (Chloride) 250 mls @ 166.7 mls/hr IVPB Q24H [facility] Last Admin: 07/29/17 22:25 Dose: 166.7 mls/hr Insulin Human Regular (Novolin R) 0 unit SC ACHS [facility] PRN Reason: Protocol Last Admin: 07/30/17 21:20 Dose: Not Given Levetiracetam (Keppra) 500 mg PO Q12 [facility] Last Admin: 07/30/17 11:10 Dose: 500 mg Lisinopril (Zestril) 5 mg PO DAILY [facility] Last Admin: 07/30/17 11:11 Dose: 5 mg Pantoprazole Sodium (Protonix Susp) 40 mg PO DAILY [facility] Last Admin: 07/30/17 11:11 Dose: 40 mg Quetiapine Fumarate (Seroquel) 200 mg PO HS [facility] Last Admin: 07/29/17 22:24 Dose: 200 mg Rosuvastatin Calcium (Crestor) 5 mg PO HS [facility] Last Admin: 07/29/17 22:23 Dose: 5 mg Tamsulosin HCl (Flomax) 0.4 mg PO DAILY [facility] Last Admin: 07/30/17 11:11 Dose: 0.4 mg Valproate Sodium (Depakene Oral Soln) 250 mg PO BID [facility] Last Admin: 07/30/17 18:04 Dose: 250 mg - Labs Labs: 07/26/17 15:44 07/27/17 06:20 PT 14.0 SECONDS (9.7-12.2) H 07/25/17 22:12 INR 1.2 07/25/17 22:12 APTT 46 SECONDS (21-34) H 07/25/17 22:12 - Constitutional Appears: Well - Head Exam Head Exam: ATRAUMATIC, NORMAL INSPECTION, NORMOCEPHALIC - ENT Exam ENT Exam: Mucous Membranes Moist, Normal Exam - Neck Exam Neck Exam: Full ROM, Normal Inspection. absent: Lymphadenopathy - Respiratory Exam Respiratory Exam: Decreased Breath Sounds - Cardiovascular Exam Cardiovascular Exam: REGULAR RHYTHM, +S1, +S2 - GI/Abdominal Exam GI & Abdominal Exam: Soft, Diminished Bowel Sounds - Rectal Exam Rectal Exam: Deferred
[2017-07-31] MEDS: Piperacill/Tazo 2.25gm in Dex 2.25 GM/50 ML BAG IVPB SCH ×4 (00:23→20:20)
[2017-07-31] MEDS: Albuterol-Ipratrop 3 mg / 0.5 (3 ml) UD INH SCH (01:03)
[2017-07-31 02:10] LABS: RBC URINE 300 /hpf (0-3); URINE BILIRUBIN NEGATIVE (NEGATIVE); URINE BLOOD 3+ (NEGATIVE); URINE COLOR Yellow (YELLOW); URINE GLUCOSE (UA) 3+ mg/dL (Normal); URINE KETONE NEGATIVE (NEGATIVE); URINE LEUKOCYTE ESTERASE NEG Leu/uL (Negative); URINE PROTEIN 1+ mg/dL (NEGATIVE); URINE UROBILINOGEN NORMAL mg/dL (0.2-1.0); WBC URINE 17 /hpf (0-5)
[2017-07-31 07:35] LABS: BASO % 0.2 % (0.0-2.0); EOS # 0.4 K/uL (0.0-0.7); EOS % 4.8 % (0.0-4.0); HEMATOCRIT 25.8 % (35.0-51.0); LYMPH # 1.6 K/uL (1.0-4.3); LYMPH % 19.8 % (20.0-40.0); MEAN CELL VOLUME 82.6 fL (80.0-94.0); MEAN CORPUSCULAR HEMOGLOBIN 27.6 pg (27.0-31.0); MEAN CORPUSCULAR HGB CONC 33.4 g/dL (33.0-37.0); MEAN PLATELET VOLUME 10.6 fL (7.2-11.7); MONO # 0.7 K/uL (0.0-0.8); MONO % 8.5 % (0.0-10.0); RED CELL DISTRIBUTION WIDTH 13.7 % (11.5-14.5); WHITE BLOOD COUNT 8.2 K/uL (4.8-10.8)
[2017-07-31 07:50] LABS: CHLORIDE 104 mmol/L (98-107)
[2017-07-31 07:51] LABS: POTASSIUM 3.9 mmol/L (3.6-5.2); SODIUM 138 mmol/L (132-148)
[2017-07-31 07:53] LABS: BILIRUBIN,TOTAL 0.5 mg/dL (0.2-1.3); CARBON DIOXIDE 25 mmol/L (22-30); GFR AFRICAN-AMERICAN > 60
[2017-07-31 07:54] LABS: ALB/GLOB RATIO 0.9 (1.0-2.1); ALKALINE PHOSPHATASE 140 U/L (38-126); ALT/SGPT 82 U/L (21-72); AST/SGOT 36 U/L (17-59); BLOOD UREA NITROGEN 11 mg/dL (9-20); CALCIUM 9.1 mg/dl (8.6-10.4); GLUCOSE,RANDOM 142 mg/dL (75-110); TOTAL PROTEIN 6.4 g/dL (6.3-8.3)
[2017-07-31] MEDS: GlipiZIDE 10 mg SR Tab PO SCH ×2 (09:13→18:22)
[2017-07-31] MEDS: Pantoprazole 40 mg Susp UD PO SCH (09:14)
[2017-07-31] MEDS: Valproic Acid 250 mg/5 ml UD Cup PO SCH ×2 (09:22→18:21)
[2017-07-31] MEDS: levETIRAcetam 100 mg/ml (5ml) Oral Syringe PO SCH ×2 (09:22→22:50)
[2017-07-31] MEDS: (Novolin R) Insulin Human Regular 100 units/ml vial SC SCH ×5 (09:23→22:00)
[2017-07-31 11:23] LABS: MEAN CELL VOLUME 83.1 fL (80.0-94.0); MEAN CORPUSCULAR HEMOGLOBIN 27.7 pg (27.0-31.0); MEAN CORPUSCULAR HGB CONC 33.3 g/dL (33.0-37.0); MEAN PLATELET VOLUME 10.1 fL (7.2-11.7); RED CELL DISTRIBUTION WIDTH 13.8 % (11.5-14.5); WHITE BLOOD COUNT 8.7 K/uL (4.8-10.8)
--- NOTE | 2017-07-31 12:16 | CP.PCM.PN ---
Subjective - Date & Time of Evaluation Date of Evaluation: 07/31/17 Time of Evaluation: 12:16 - Subjective Subjective: PT NOT STABLE FOR D/C HOME TODAY. PLT 11 IN MORNING BLOOD WORK; REPEATED PLT LEVEL IS 3. DR. Mary SARMIENTO MADE AWARE AND DR. GARCIA CONSULTED FOR HEME. [employer] DISCUSSED CASE AND REASON FOR CONSULT WITH DR. GARCIA, WHO WILL SEE PT THIS EVENING AND RECOMMENDS 1 UNIT PLT TODAY TO BE TRANSFUSED. PT IS APHASIC 2/2 OLD CVA AND DEMENTIA. DAUGHTER TREVON MONCADA IS THE NEXT OF KIN AND TECHNICIAN TEST [employer] FOR PT'S CARE. DISCUSSED WITH HER AT LENGTH TWICE TODAY FOR NEED FOR PLT TRANSFUSION. I ANSWERED ALL FAMILY CONCERNS AND QUESTIONS. TREVON AGREES FOR PLT TRANSFUSION TODAY (TELEPHONE CONSENT OBTAINED BY [employer] AND 2 RNS FOR PURPOSES OF BEGINNING TYPE/SCREEN PROCESS) AND SHE WILL COME IN THIS EVENING TO SIGN THE CONSENT IN PERSON WITH [employer] FIN[employer]. REPEAT LABS ORDERED FOR TOMORROW MORNING. WILL F/U. NO FURTHER ORDERS AT THIS TIME. Objective - Vital Signs/Intake and Output Vital Signs (last 24 hours): Temp Pulse Resp BP Pulse Ox 97.9 F 95 H 20 127/80 95 07/31/17 09:34 07/31/17 09:34 07/31/17 09:34 07/31/17 09:34 07/31/17 09:34 Intake and Output: 07/31/17 07/31/17 06:59 18:59 Intake Total 575 Output Total 650 Balance -75 - Medications Medications: Current Medications Acetaminophen (Tylenol 650 Mg Supp) 650 mg [place] Q6 PRN PRN Reason: Temperature Acetaminophen (Tylenol 325mg Tab) 650 mg PO Q4 PRN PRN Reason: Pain, moderate (4-7) Last Admin: 07/29/17 15:44 Dose: 650 mg Alprazolam (Xanax) 0.5 mg PO TID [facility] Last Admin: 07/31/17 09:14 Dose: 0.5 mg Aspirin (Ecotrin) 81 mg PO DAILY [facility] Last Admin: 07/30/17 11:11 Dose: 81 mg Enoxaparin Sodium (Lovenox) 30 mg SC DAILY [facility] Last Admin: 07/30/17 11:11 Dose: 30 mg Ergocalciferol (Drisdol 50,000 Intl Units Cap) 1 cap PO QWK [facility] Glipizide (Glucotrol Xl) 10 mg PO BIDCC [facility] Last Admin: 07/31/17 09:13 Dose: 10 mg Piperacillin Sod/Tazobactam Sod (Zosyn 2.25 Gm Iv Premix) 2.25 gm in 50 mls @ 100 mls/hr IVPB Q6H [facility] Last Admin: 07/31/17 06:52 Dose: 100 mls/hr Vancomycin HCl 1 gm/ Sodium (Chloride) 250 mls @ 166.7 mls/hr IVPB Q24H [facility] Last Admin: 07/30/17 22:15 Dose: 166.7 mls/hr Insulin Human Regular (Novolin R) 0 unit SC ACHS [facility] PRN Reason: Protocol Last Admin: 07/31/17 09:23 Dose: 2 unit Levetiracetam (Keppra) 500 mg PO Q12 [facility] Last Admin: 07/31/17 09:22 Dose: 500 mg Lisinopril (Zestril) 5 mg PO DAILY [facility] Last Admin: 07/31/17 09:14 Dose: 5 mg Pantoprazole Sodium (Protonix Susp) 40 mg PO DAILY [facility] Last Admin: 07/31/17 09:14 Dose: 40 mg Quetiapine Fumarate (Seroquel) 200 mg PO HS [facility] Last Admin: 07/30/17 22:19 Dose: 200 mg Rosuvastatin Calcium (Crestor) 5 mg PO HS [facility] Last Admin: 07/30/17 22:19 Dose: 5 mg Tamsulosin HCl (Flomax) 0.4 mg PO DAILY [facility] Last Admin: 07/31/17 09:14 Dose: 0.4 mg Valproate Sodium (Depakene Oral Soln) 250 mg PO BID [facility] Last Admin: 07/31/17 09:22 Dose: 250 mg - Labs Labs: 07/31/17 11:17 07/31/17 07:14 PT 14.0 SECONDS (9.7-12.2) H 07/25/17 22:12 INR 1.2 07/25/17 22:12 APTT 46 SECONDS (21-34) H 07/25/17 22:12
[2017-07-31] MEDS: Enoxaparin 30 mg Syringe SC SCH (12:35)
[2017-07-31 14:01] LABS: INR 1.2
--- NOTE | 2017-07-31 16:14 | RAD ---
HISTORY: r/o pna COMPARISON: 07/27/2017 FINDINGS: LUNGS: The patchy perihilar and patchy faint bibasilar infiltrate are similar to perhaps slightly increased diffusely. An element of concomitant interstitial pulmonary edema not excluded. PLEURA: No significant pleural effusion identified, no pneumothorax apparent. CARDIOVASCULAR: Minimal cardiomegaly OSSEOUS STRUCTURES: Bilateral shoulder arthrosis VISUALIZED UPPER ABDOMEN: Hiatal hernia suggested OTHER FINDINGS: None. IMPRESSION: Bilateral faint and patchy infiltrates -consistent with the clinical history of possible pneumonia very slightly increased in their bilateral conspicuity An interstitial increased pulmonary edema component -possible minimal cardiomegaly
--- NOTE | 2017-07-31 16:36 | CP.PCM.PN ---
Subjective - Date & Time of Evaluation Date of Evaluation: 07/31/17 Time of Evaluation: 16:36 Objective - Vital Signs/Intake and Output Vital Signs (last 24 hours): Temp Pulse Resp BP Pulse Ox 97.9 F 95 H 20 127/80 95 07/31/17 09:34 07/31/17 09:34 07/31/17 09:34 07/31/17 09:34 07/31/17 09:34 Intake and Output: 07/31/17 07/31/17 06:59 18:59 Intake Total 575 Output Total 650 Balance -75 - Medications Medications: Current Medications Acetaminophen (Tylenol 650 Mg Supp) 650 mg [place] Q6 PRN PRN Reason: Temperature Acetaminophen (Tylenol 325mg Tab) 650 mg PO Q4 PRN PRN Reason: Pain, moderate (4-7) Last Admin: 07/29/17 15:44 Dose: 650 mg Alprazolam (Xanax) 0.5 mg PO TID [facility] Last Admin: 07/31/17 14:32 Dose: 0.5 mg Aspirin (Ecotrin) 81 mg PO DAILY [facility] Last Admin: 07/31/17 12:34 Dose: Not Given Enoxaparin Sodium (Lovenox) 30 mg SC DAILY [facility] Last Admin: 07/31/17 12:35 Dose: Not Given Ergocalciferol (Drisdol 50,000 Intl Units Cap) 1 cap PO QWK [facility] Glipizide (Glucotrol Xl) 10 mg PO BIDCC [facility] Last Admin: 07/31/17 09:13 Dose: 10 mg Piperacillin Sod/Tazobactam Sod (Zosyn 2.25 Gm Iv Premix) 2.25 gm in 50 mls @ 100 mls/hr IVPB Q6H [facility] Last Admin: 07/31/17 12:50 Dose: 100 mls/hr Vancomycin HCl 1 gm/ Sodium (Chloride) 250 mls @ 166.7 mls/hr IVPB Q24H [facility] Last Admin: 07/30/17 22:15 Dose: 166.7 mls/hr Insulin Human Regular (Novolin R) 0 unit SC ACHS [facility] PRN Reason: Protocol Last Admin: 07/31/17 12:54 Dose: 4 unit Levetiracetam (Keppra) 500 mg PO Q12 [facility] Last Admin: 07/31/17 09:22 Dose: 500 mg Lisinopril (Zestril) 5 mg PO DAILY [facility] Last Admin: 07/31/17 09:14 Dose: 5 mg Pantoprazole Sodium (Protonix Susp) 40 mg PO DAILY [facility] Last Admin: 07/31/17 09:14 Dose: 40 mg Quetiapine Fumarate (Seroquel) 200 mg PO HS [facility] Last Admin: 07/30/17 22:19 Dose: 200 mg Rosuvastatin Calcium (Crestor) 5 mg PO HS [facility] Last Admin: 07/30/17 22:19 Dose: 5 mg Tamsulosin HCl (Flomax) 0.4 mg PO DAILY [facility] Last Admin: 07/31/17 09:14 Dose: 0.4 mg Valproate Sodium (Depakene Oral Soln) 250 mg PO BID [facility] Last Admin: 07/31/17 09:22 Dose: 250 mg - Labs Labs: 07/31/17 11:17 07/31/17 07:14 PT 14.0 SECONDS (9.7-12.2) H 07/31/17 13:47 INR 1.2 07/31/17 13:47 APTT 41 SECONDS (21-34) H 07/31/17 13:47
[2017-07-31] MEDS ORDERED: Bacitracin Ointment 30 GM TUBE TOP SCH (18:15)
[2017-07-31] MEDS: Vitamins A & D Oint UD Foilpak TOP SCH (19:33)
--- NOTE | 2017-07-31 21:14 | CP.PCM.PN ---
Subjective - Date & Time of Evaluation Date of Evaluation: 07/31/17 Time of Evaluation: 12:40 - Subjective Subjective: clinically same Objective - Vital Signs/Intake and Output Vital Signs (last 24 hours): Temp Pulse Resp BP Pulse Ox 98.3 F 104 H 20 99/66 L 96 07/31/17 15:00 07/31/17 15:00 07/31/17 15:00 07/31/17 15:00 07/31/17 15:00 - Medications Medications: Current Medications Acetaminophen (Tylenol 650 Mg Supp) 650 mg [place] Q6 PRN PRN Reason: Temperature Acetaminophen (Tylenol 325mg Tab) 650 mg PO Q4 PRN PRN Reason: Pain, moderate (4-7) Last Admin: 07/29/17 15:44 Dose: 650 mg Alprazolam (Xanax) 0.5 mg PO TID [facility] Last Admin: 07/31/17 18:24 Dose: 0.5 mg Aspirin (Ecotrin) 81 mg PO DAILY [facility] Last Admin: 07/31/17 12:34 Dose: Not Given Bacitracin (Bacitracin) 1 ea TOP BID [facility] Enoxaparin Sodium (Lovenox) 30 mg SC DAILY [facility] Last Admin: 07/31/17 12:35 Dose: Not Given Ergocalciferol (Drisdol 50,000 Intl Units Cap) 1 cap PO QWK [facility] Glipizide (Glucotrol Xl) 10 mg PO BIDCC [facility] Last Admin: 07/31/17 18:22 Dose: 10 mg Piperacillin Sod/Tazobactam Sod (Zosyn 2.25 Gm Iv Premix) 2.25 gm in 50 mls @ 100 mls/hr IVPB Q6H [facility] Last Admin: 07/31/17 20:20 Dose: 100 mls/hr Vancomycin HCl 1 gm/ Sodium (Chloride) 250 mls @ 166.7 mls/hr IVPB Q24H [facility] Last Admin: 07/30/17 22:15 Dose: 166.7 mls/hr Insulin Human Regular (Novolin R) 0 unit SC ACHS [facility] PRN Reason: Protocol Last Admin: 07/31/17 18:23 Dose: 3 unit Levetiracetam (Keppra) 500 mg PO Q12 [facility] Last Admin: 07/31/17 09:22 Dose: 500 mg Lisinopril (Zestril) 5 mg PO DAILY [facility] Last Admin: 07/31/17 09:14 Dose: 5 mg Pantoprazole Sodium (Protonix Susp) 40 mg PO DAILY [facility] Last Admin: 07/31/17 09:14 Dose: 40 mg Quetiapine Fumarate (Seroquel) 200 mg PO HS [facility] Last Admin: 07/30/17 22:19 Dose: 200 mg Rosuvastatin Calcium (Crestor) 5 mg PO HS [facility] Last Admin: 07/30/17 22:19 Dose: 5 mg Tamsulosin HCl (Flomax) 0.4 mg PO DAILY [facility] Last Admin: 07/31/17 09:14 Dose: 0.4 mg Valproate Sodium (Depakene Oral Soln) 250 mg PO BID [facility] Last Admin: 07/31/17 18:21 Dose: 250 mg Vitamin A (Vitamin A & D Oint Ud Foilpak) 1 ea TOP BID [facility] Last Admin: 07/31/17 19:33 Dose: 1 ea - Labs Labs: 07/31/17 11:17 07/31/17 07:14 PT 14.0 SECONDS (9.7-12.2) H 07/31/17 13:47 INR 1.2 07/31/17 13:47 APTT 41 SECONDS (21-34) H 07/31/17 13:47
[2017-07-31] MEDS: Bacitracin 500 Units/gm Oint Foilpak UD TOP SCH (22:49)
[2017-08-01] MEDS: Piperacill/Tazo 2.25gm in Dex 2.25 GM/50 ML BAG IVPB SCH ×3 (00:05→13:00)
[2017-08-01] MEDS: Albuterol-Ipratrop 3 mg / 0.5 (3 ml) UD INH SCH ×4 (07:28→19:27)
[2017-08-01] MEDS: (Novolin R) Insulin Human Regular 100 units/ml vial SC SCH ×4 (08:10→23:05)
[2017-08-01 08:30] LABS: HEMATOCRIT 22.7 % (35.0-51.0); MEAN CORPUSCULAR HEMOGLOBIN 27.8 pg (27.0-31.0); MEAN CORPUSCULAR HGB CONC 33.4 g/dL (33.0-37.0); MEAN PLATELET VOLUME 10.4 fL (7.2-11.7); RED CELL DISTRIBUTION WIDTH 13.7 % (11.5-14.5)
[2017-08-01] MEDS: GlipiZIDE 10 mg SR Tab PO SCH ×2 (08:30→18:38)
[2017-08-01 08:48] LABS: CHLORIDE 100 mmol/L (98-107)
[2017-08-01 08:49] LABS: POTASSIUM 3.6 mmol/L (3.6-5.2); SODIUM 140 mmol/L (132-148)
[2017-08-01 08:51] LABS: CARBON DIOXIDE 28 mmol/L (22-30); GFR AFRICAN-AMERICAN > 60
[2017-08-01 08:52] LABS: ALKALINE PHOSPHATASE 157 U/L (38-126); ALT/SGPT 100 U/L (21-72); AST/SGOT 46 U/L (17-59); BILIRUBIN,TOTAL 0.6 mg/dL (0.2-1.3); BLOOD UREA NITROGEN 14 mg/dL (9-20); CALCIUM 9.5 mg/dl (8.6-10.4); GLUCOSE,RANDOM 129 mg/dL (75-110); TOTAL PROTEIN 7.1 g/dL (6.3-8.3)
[2017-08-01] MEDS: Valproic Acid 250 mg/5 ml UD Cup PO SCH ×2 (10:49→18:38)
[2017-08-01] MEDS: levETIRAcetam 100 mg/ml (5ml) Oral Syringe PO SCH ×2 (10:49→23:05)
[2017-08-01] MEDS: Bacitracin 500 Units/gm Oint Foilpak UD TOP SCH ×2 (10:50→18:38)
[2017-08-01] MEDS: Vitamins A & D Oint UD Foilpak TOP SCH ×2 (10:51→18:39)
--- NOTE | 2017-08-01 12:42 | CP.PCM.CON ---
History of Present Illness - History of Present Illness History of Present Illness: 61 year old male with a history of DM, HTN, CVA, dementia, admitted with sepsis from suspected aspiration pneumonia on antibiotics, with severe thrombocytopenia. I am unable to obtain a history from the patient. Review of his medical records shows he was admitted with a normal platelet count which has nadired at 3,000 today. There is no evidence of abnormal bleeding and bruising. Past medical, surgical, family, social history cannot be obtained from the patient. Allergies: Per documentation [facility] Review of systems cannot be obtained. Past Patient History - Infectious Disease Hx of Infectious Diseases: None - Past Medical History & Family History Past Medical History?: Yes - Past Social History Smoking Status: Never Smoked - CARDIAC Hx Hypercholesterolemia: Yes Hx Hypertension: Yes - PULMONARY Hx Respiratory Disorders: No - NEUROLOGICAL HX Cerebrovascular Accident: Yes (right side weakness) - HEENT Hx HEENT Problems: Yes Hx Cataracts: Yes (Both Cataract Surgery) - RENAL Hx Chronic Kidney Disease: No - ENDOCRINE/METABOLIC Hx Diabetes Mellitus Type 2: Yes - HEMATOLOGICAL/ONCOLOGICAL Hx Blood Disorders: No - INTEGUMENTARY Hx Dermatological Problems: No - MUSCULOSKELETAL/RHEUMATOLOGICAL Hx Musculoskeletal Disorders: Yes Hx Arthritis: Yes Hx Falls: No Hx Fractures: Yes (non displaced avulsion fracture of right talus) - GASTROINTESTINAL Hx Gastrointestinal Disorders: Yes Hx Gastroesophageal Reflux: Yes - GENITOURINARY/GYNECOLOGICAL Hx Genitourinary Disorders: Yes Hx Prostate Problems: Yes (BPH) Other/Comment: Prostate Problem-taking Flomax @ home - PSYCHIATRIC Hx Psychophysiologic Disorder: Yes Hx Anxiety: Yes Hx Bipolar Disorder: Yes Hx Substance Use: No - SURGICAL HISTORY Hx Surgeries: Yes Hx Appendectomy: Yes - ANESTHESIA Hx Anesthesia: Yes Hx Anesthesia Reactions: No Hx Malignant Hyperthermia: No Meds Allergies/Adverse Reactions: Allergies Allergy/AdvReac Type Severity Reaction Status Date / Time No Known Allergies Allergy Verified 01/15/17 08:52 - Medications Medications: Current Medications Acetaminophen (Tylenol 650 Mg Supp) 650 mg [place] Q6 PRN PRN Reason: Temperature Acetaminophen (Tylenol 325mg Tab) 650 mg PO Q4 PRN PRN Reason: Pain, moderate (4-7) Last Admin: 07/31/17 21:38 Dose: 650 mg Albuterol/Ipratropium (Duoneb 3 Mg/0.5 Mg (3 Ml) Ud) 3 ml INH RQ6 [facility] Last Admin: 08/01/17 07:28 Dose: 3 ml Alprazolam (Xanax) 0.5 mg PO TID [facility] Last Admin: 08/01/17 10:54 Dose: 0.5 mg Aspirin (Ecotrin) 81 mg PO DAILY [facility] Last Admin: 07/31/17 12:34 Dose: Not Given Bacitracin (Bacitracin) 1 ea TOP BID [facility] Last Admin: 08/01/17 10:50 Dose: 1 ea Enoxaparin Sodium (Lovenox) 30 mg SC DAILY [facility] Last Admin: 07/31/17 12:35 Dose: Not Given Ergocalciferol (Drisdol 50,000 Intl Units Cap) 1 cap PO QWK [facility] Glipizide (Glucotrol Xl) 10 mg PO BIDCC [facility] Last Admin: 08/01/17 08:30 Dose: 10 mg Piperacillin Sod/Tazobactam Sod (Zosyn 2.25 Gm Iv Premix) 2.25 gm in 50 mls @ 100 mls/hr IVPB Q6H [facility] Last Admin: 08/01/17 06:07 Dose: 100 mls/hr Insulin Human Regular (Novolin R) 0 unit SC ACHS [facility] PRN Reason: Protocol Last Admin: 08/01/17 08:10 Dose: 3 unit Levetiracetam (Keppra) 500 mg PO Q12 [facility] Last Admin: 08/01/17 10:49 Dose: 500 mg Lisinopril (Zestril) 5 mg PO DAILY [facility] Last Admin: 08/01/17 10:50 Dose: 5 mg Quetiapine Fumarate (Seroquel) 200 mg PO HS [facility] Last Admin: 07/31/17 22:52 Dose: 200 mg Rosuvastatin Calcium (Crestor) 5 mg PO HS [facility] Last Admin: 07/31/17 22:53 Dose: 5 mg Tamsulosin HCl (Flomax) 0.4 mg PO DAILY [facility] Last Admin: 08/01/17 10:49 Dose: 0.4 mg Valproate Sodium (Depakene Oral Soln) 250 mg PO BID [facility] Last Admin: 08/01/17 10:49 Dose: 250 mg Vitamin A (Vitamin A & D Oint Ud Foilpak) 1 ea TOP BID [facility] Last Admin: 08/01/17 10:51 Dose: 1 ea Physical Exam - Head Exam Head Exam: ATRAUMATIC - Eye Exam Eye Exam: Normal appearance - ENT Exam ENT Exam: Mucous Membranes Dry - Respiratory Exam Respiratory Exam: NORMAL BREATHING PATTERN - Cardiovascular Exam Cardiovascular Exam: +S1, +S2 - GI/Abdominal Exam GI & Abdominal Exam: Normal Bowel Sounds Results - Vital Signs Recent Vital Signs: Last Vital Signs Temp 98.2 F 08/01/17 08:10 Pulse 98 H 08/01/17 08:10 Resp 20 08/01/17 08:10 BP 128/82 08/01/17 08:10 Pulse Ox 99 08/01/17 08:10 - Labs Result Diagrams: 08/01/17 08:21 08/01/17 08:21 Labs: Laboratory Results - last 24 hr 07/31/17 07/31/17 07/31/17 07:14 11:17 13:47 WBC RBC Hgb Hct MCV MCH MCHC RDW Plt Count MPV Differential Comment Smear Path Review PT 14.0 H INR 1.2 APTT 41 H Sodium Potassium Chloride Carbon Dioxide Anion Gap BUN Creatinine Est GFR ( Amer) Est GFR (Non-Af Amer) POC Glucose (mg/dL) Random Glucose Calcium Total Bilirubin AST ALT Alkaline Phosphatase Total Protein Albumin Globulin Albumin/Globulin Ratio Blood Type Antibody Screen 07/31/17 07/31/17 07/31/17 14:08 17:22 21:49 WBC RBC Hgb Hct MCV MCH MCHC RDW Plt Count MPV Differential Comment Smear Path Review PT INR APTT Sodium Potassium Chloride Carbon Dioxide Anion Gap BUN Creatinine Est GFR ( Amer) Est GFR (Non-Af Amer) POC Glucose (mg/dL) 212 H 238 H Random Glucose Calcium Total Bilirubin AST ALT Alkaline Phosphatase Total Protein Albumin Globulin Albumin/Globulin Ratio Blood Type B POSITIVE Antibody Screen Negative 08/01/17 08/01/17 08/01/17 08:21 08:21 11:54 WBC 11.0 H RBC 2.74 L Hgb 7.6 L Hct 22.7 L MCV 83.0 MCH 27.8 MCHC 33.4 RDW 13.7 Plt Count 3 L* MPV 10.4 Differential Comment Smear Path Review PT INR APTT Sodium 140 Potassium 3.6 Chloride 100 Carbon Dioxide 28 Anion Gap 15 BUN 14 Creatinine 1.4 Est GFR ( Amer) > 60 Est GFR (Non-Af Amer) 52 POC Glucose (mg/dL) 245 H Random Glucose 129 H Calcium 9.5 Total Bilirubin 0.6 AST 46 ALT 100 H D Alkaline Phosphatase 157 H Total Protein 7.1 Albumin 3.5 Globulin 3.5 Albumin/Globulin Ratio 1.0 Blood Type Antibody Screen Assessment & Plan (1) Thrombocytopenia Assessment and Plan: suspect medication induced given pt admitted with normal plt count ?vancomycin; check with ID if okay to D/C rule out heparin induced thrombocytopenia; will check heparin Ab and serotonin release assay transfusion support of plt for plt count > 10,000 Status: Acute (2) Anemia Assessment and Plan: will check ferritin, retic count, b12, folate, FOBT to further characterize transfusion support PRN Status: Acute (3) Leukocytosis Assessment and Plan: on antibiotics Status: Acute (4) Coagulopathy Assessment and Plan: nutritional will check fibrinogen; unlikely DIC Thank you for this interesting consult. Status: Acute
--- NOTE | 2017-08-01 16:31 | CP.PCM.PN ---
Subjective - Date & Time of Evaluation Date of Evaluation: 08/01/17 Time of Evaluation: 08:00 - Subjective Subjective: afebrile alert plts low vanco/ zosyn d/c'd Objective - Vital Signs/Intake and Output Vital Signs (last 24 hours): Temp Pulse Resp BP Pulse Ox 99.3 F 104 H 20 139/84 99 08/01/17 16:19 08/01/17 16:19 08/01/17 16:19 08/01/17 16:19 08/01/17 08:10 Intake and Output: 08/01/17 08/01/17 06:59 18:59 Intake Total 1289 0 Output Total 1300 Balance -11 0 - Medications Medications: Current Medications Acetaminophen (Tylenol 650 Mg Supp) 650 mg [place] Q6 PRN PRN Reason: Temperature Acetaminophen (Tylenol 325mg Tab) 650 mg PO Q4 PRN PRN Reason: Pain, moderate (4-7) Last Admin: 07/31/17 21:38 Dose: 650 mg Albuterol/Ipratropium (Duoneb 3 Mg/0.5 Mg (3 Ml) Ud) 3 ml INH RQ6 [facility] Last Admin: 08/01/17 13:52 Dose: 3 ml Alprazolam (Xanax) 0.5 mg PO TID [facility] Last Admin: 08/01/17 14:09 Dose: 0.5 mg Aspirin (Ecotrin) 81 mg PO DAILY [facility] Last Admin: 07/31/17 12:34 Dose: Not Given Bacitracin (Bacitracin) 1 ea TOP BID [facility] Last Admin: 08/01/17 10:50 Dose: 1 ea Enoxaparin Sodium (Lovenox) 30 mg SC DAILY [facility] Last Admin: 07/31/17 12:35 Dose: Not Given Ergocalciferol (Drisdol 50,000 Intl Units Cap) 1 cap PO QWK [facility] Furosemide (Lasix) 40 mg IVP ONCE ONE Stop: 08/01/17 20:01 Glipizide (Glucotrol Xl) 10 mg PO BIDCC [facility] Last Admin: 08/01/17 08:30 Dose: 10 mg Insulin Human Regular (Novolin R) 0 unit SC ACHS [facility] PRN Reason: Protocol Last Admin: 08/01/17 12:15 Dose: 3 unit Levetiracetam (Keppra) 500 mg PO Q12 [facility] Last Admin: 08/01/17 10:49 Dose: 500 mg Lisinopril (Zestril) 5 mg PO DAILY [facility] Last Admin: 08/01/17 10:50 Dose: 5 mg Quetiapine Fumarate (Seroquel) 200 mg PO HS [facility] Last Admin: 07/31/17 22:52 Dose: 200 mg Rosuvastatin Calcium (Crestor) 5 mg PO HS [facility] Last Admin: 07/31/17 22:53 Dose: 5 mg Tamsulosin HCl (Flomax) 0.4 mg PO DAILY [facility] Last Admin: 08/01/17 10:49 Dose: 0.4 mg Valproate Sodium (Depakene Oral Soln) 250 mg PO BID [facility] Last Admin: 08/01/17 10:49 Dose: 250 mg Vitamin A (Vitamin A & D Oint Ud Foilpak) 1 ea TOP BID [facility] Last Admin: 08/01/17 10:51 Dose: 1 ea - Labs Labs: 08/01/17 08:21 08/01/17 08:21 PT 14.0 SECONDS (9.7-12.2) H 07/31/17 13:47 INR 1.2 07/31/17 13:47 APTT 41 SECONDS (21-34) H 07/31/17 13:47 - Constitutional Appears: Non-toxic, Confused, Chronically Ill - Head Exam Head Exam: NORMOCEPHALIC - Eye Exam Eye Exam: PERRL. absent: Scleral icterus - ENT Exam ENT Exam: Mucous Membranes Dry - Neck Exam Neck Exam: absent: Lymphadenopathy - Respiratory Exam Respiratory Exam: Decreased Breath Sounds - Cardiovascular Exam Cardiovascular Exam: REGULAR RHYTHM Assessment and Plan (1) History of CVA (cerebrovascular accident) Status: Acute (2) Sepsis Status: Acute (3) Acute renal insufficiency Status: Acute (4) Agitation Status: Acute (5) Altered mental status Status: Acute (6) Anxiety Status: Acute (7) Aspiration pneumonia Status: Acute (8) CVA (cerebral infarction) Status: Acute (9) Confusion Status: Acute (10) Confusion after a seizure Status: Acute (11) Dehydration Status: Acute (12) Dementia Status: Acute (13) Diabetes Status: Acute (14) History of cerebrovascular accident (CVA) with residual deficit Status: Acute (15) History of seizures Status: Acute (16) Lethargy Status: Acute (17) Neurocognitive disorder Status: Acute - Assessment and Plan (Free Text) Assessment: 61 year old male with a history of DM, HTN, CVA, dementia, admitted with sepsis from suspected aspiration pneumonia on antibiotics, with severe thrombocytopenia. has toxic granulation on smear and infiltrates will add cefepime
--- NOTE | 2017-08-01 18:01 | CP.PCM.PN ---
Subjective - Date & Time of Evaluation Date of Evaluation: 08/01/17 Time of Evaluation: 10:30 - Subjective Subjective: PT SEEN AND EXAMIEND TODAY, NON-VERBAL, APHASIC, RIGHT SIDED WEAKNESS, RESP EASY AND UNLABORED. NAD. Objective - Vital Signs/Intake and Output Vital Signs (last 24 hours): Temp Pulse Resp BP Pulse Ox 99 F 108 H 20 143/80 99 08/01/17 16:34 08/01/17 16:34 08/01/17 16:34 08/01/17 16:34 08/01/17 08:10 Intake and Output: 08/01/17 08/01/17 06:59 18:59 Intake Total 1289 0 Output Total 1300 Balance -11 0 - Medications Medications: Current Medications Acetaminophen (Tylenol 650 Mg Supp) 650 mg [place] Q6 PRN PRN Reason: Temperature Acetaminophen (Tylenol 325mg Tab) 650 mg PO Q4 PRN PRN Reason: Pain, moderate (4-7) Last Admin: 07/31/17 21:38 Dose: 650 mg Albuterol/Ipratropium (Duoneb 3 Mg/0.5 Mg (3 Ml) Ud) 3 ml INH RQ6 [facility] Last Admin: 08/01/17 13:52 Dose: 3 ml Alprazolam (Xanax) 0.5 mg PO TID [facility] Last Admin: 08/01/17 14:09 Dose: 0.5 mg Aspirin (Ecotrin) 81 mg PO DAILY [facility] Last Admin: 07/31/17 12:34 Dose: Not Given Bacitracin (Bacitracin) 1 ea TOP BID [facility] Last Admin: 08/01/17 10:50 Dose: 1 ea Enoxaparin Sodium (Lovenox) 30 mg SC DAILY [facility] Last Admin: 07/31/17 12:35 Dose: Not Given Ergocalciferol (Drisdol 50,000 Intl Units Cap) 1 cap PO QWK [facility] Furosemide (Lasix) 40 mg IVP ONCE ONE Stop: 08/01/17 20:01 Glipizide (Glucotrol Xl) 10 mg PO BIDCC [facility] Last Admin: 08/01/17 08:30 Dose: 10 mg Cefepime HCl (Maxipime Iv 1 Gm Premix) 1 gm in 50 mls @ 100 mls/hr IVPB Q12H [facility] Insulin Human Regular (Novolin R) 0 unit SC ACHS [facility] PRN Reason: Protocol Last Admin: 08/01/17 12:15 Dose: 3 unit Levetiracetam (Keppra) 500 mg PO Q12 [facility] Last Admin: 08/01/17 10:49 Dose: 500 mg Lisinopril (Zestril) 5 mg PO DAILY [facility] Last Admin: 08/01/17 10:50 Dose: 5 mg Quetiapine Fumarate (Seroquel) 200 mg PO HS [facility] Last Admin: 07/31/17 22:52 Dose: 200 mg Rosuvastatin Calcium (Crestor) 5 mg PO HS [facility] Last Admin: 07/31/17 22:53 Dose: 5 mg Tamsulosin HCl (Flomax) 0.4 mg PO DAILY [facility] Last Admin: 08/01/17 10:49 Dose: 0.4 mg Valproate Sodium (Depakene Oral Soln) 250 mg PO BID [facility] Last Admin: 08/01/17 10:49 Dose: 250 mg Vitamin A (Vitamin A & D Oint Ud Foilpak) 1 ea TOP BID [facility] Last Admin: 08/01/17 10:51 Dose: 1 ea - Labs Labs: 08/01/17 08:21 08/01/17 08:21 PT 14.0 SECONDS (9.7-12.2) H 07/31/17 13:47 INR 1.2 07/31/17 13:47 APTT 41 SECONDS (21-34) H 07/31/17 13:47 Assessment and Plan - Assessment and Plan (Free Text) Plan: 61 Y/O MALE ADMITTED FOR PNEUMONIA, SEPSIS, THROMBOCYTOPENIA, ANEMIA, LEUKOCYSTOSIS, PLT 3, H/H 7.6/ 22.7 TODAY DESPITE 1 UNIT PLATELET TRANSFUSION YESTERDAY, DR GARCIA MADE AWARE OF PLT AND H/H, 1 UNIT PLATELET TRANSFUSION, NO ANTICOAGULANT, DISCONTINUE VANCOMYCIN AND ZOSYN, REPEAT LAB, AND DAUGHTER MADE AWARE OF RESULT, AGREE WITH ABOVE POC, OB ORDERED, WILL CONTINUE TO MONITOR.
--- NOTE | 2017-08-01 18:54 | CP.PCM.PN ---
Subjective - Date & Time of Evaluation Date of Evaluation: 08/01/17 Time of Evaluation: 11:20 - Subjective Subjective: clinically same Objective - Vital Signs/Intake and Output Vital Signs (last 24 hours): Temp Pulse Resp BP Pulse Ox 98.7 F 109 H 20 122/78 99 08/01/17 17:19 08/01/17 17:19 08/01/17 17:19 08/01/17 17:19 08/01/17 08:10 Intake and Output: 08/01/17 08/01/17 06:59 18:59 Intake Total 1289 256 Output Total 1300 Balance -11 256 - Medications Medications: Current Medications Acetaminophen (Tylenol 650 Mg Supp) 650 mg IN Q6 PRN PRN Reason: Temperature Acetaminophen (Tylenol 325mg Tab) 650 mg PO Q4 PRN PRN Reason: Pain, moderate (4-7) Last Admin: 07/31/17 21:38 Dose: 650 mg Albuterol/Ipratropium (Duoneb 3 Mg/0.5 Mg (3 Ml) Ud) 3 ml INH RQ6 [facility] Last Admin: 08/01/17 13:52 Dose: 3 ml Alprazolam (Xanax) 0.5 mg PO TID [facility] Last Admin: 08/01/17 18:39 Dose: 0.5 mg Aspirin (Ecotrin) 81 mg PO DAILY [facility] Last Admin: 07/31/17 12:34 Dose: Not Given Bacitracin (Bacitracin) 1 ea TOP BID [facility] Last Admin: 08/01/17 18:38 Dose: 1 ea Enoxaparin Sodium (Lovenox) 30 mg SC DAILY [facility] Last Admin: 07/31/17 12:35 Dose: Not Given Ergocalciferol (Drisdol 50,000 Intl Units Cap) 1 cap PO QWK [facility] Furosemide (Lasix) 40 mg IVP ONCE ONE Stop: 08/01/17 20:01 Glipizide (Glucotrol Xl) 10 mg PO BIDCC [facility] Last Admin: 08/01/17 18:38 Dose: 10 mg Cefepime HCl (Maxipime Iv 1 Gm Premix) 1 gm in 50 mls @ 100 mls/hr IVPB Q12H [facility] Insulin Human Regular (Novolin R) 0 unit SC ACHS [facility] PRN Reason: Protocol Last Admin: 09/13/17 18:38 Dose: 3 unit Levetiracetam (Keppra) 500 mg PO Q12 [facility] Last Admin: 08/01/17 10:49 Dose: 500 mg Lisinopril (Zestril) 5 mg PO DAILY [facility] Last Admin: 08/01/17 10:50 Dose: 5 mg Quetiapine Fumarate (Seroquel) 200 mg PO HS [facility] Last Admin: 07/31/17 22:52 Dose: 200 mg Rosuvastatin Calcium (Crestor) 5 mg PO HS [facility] Last Admin: 07/31/17 22:53 Dose: 5 mg Tamsulosin HCl (Flomax) 0.4 mg PO DAILY [facility] Last Admin: 08/01/17 10:49 Dose: 0.4 mg Valproate Sodium (Depakene Oral Soln) 250 mg PO BID [facility] Last Admin: 08/01/17 18:38 Dose: 250 mg Vitamin A (Vitamin A & D Oint Ud Foilpak) 1 ea TOP BID [facility] Last Admin: 08/01/17 18:39 Dose: 1 ea - Labs Labs: 08/01/17 08:21 08/01/17 08:21 PT 14.0 SECONDS (9.7-12.2) H 07/31/17 13:47 INR 1.2 07/31/17 13:47 APTT 41 SECONDS (21-34) H 07/31/17 13:47
--- NOTE | 2017-08-01 19:42 | CP.PCM.PN ---
Subjective - Date & Time of Evaluation Date of Evaluation: 08/01/17 Objective - Vital Signs/Intake and Output Vital Signs (last 24 hours): Temp Pulse Resp BP Pulse Ox 98.7 F 109 H 20 122/78 99 08/01/17 17:19 08/01/17 17:19 08/01/17 17:19 08/01/17 17:19 08/01/17 08:10 Intake and Output: 08/01/17 08/02/17 18:59 06:59 Intake Total 256 Balance 256 - Medications Medications: Current Medications Acetaminophen (Tylenol 650 Mg Supp) 650 mg [place] Q6 PRN PRN Reason: Temperature Acetaminophen (Tylenol 325mg Tab) 650 mg PO Q4 PRN PRN Reason: Pain, moderate (4-7) Last Admin: 07/31/17 21:38 Dose: 650 mg Albuterol/Ipratropium (Duoneb 3 Mg/0.5 Mg (3 Ml) Ud) 3 ml INH RQ6 [facility] Last Admin: 08/01/17 19:27 Dose: Not Given Alprazolam (Xanax) 0.5 mg PO TID [facility] Last Admin: 08/01/17 18:39 Dose: 0.5 mg Aspirin (Ecotrin) 81 mg PO DAILY [facility] Last Admin: 07/31/17 12:34 Dose: Not Given Bacitracin (Bacitracin) 1 ea TOP BID [facility] Last Admin: 08/01/17 18:38 Dose: 1 ea Enoxaparin Sodium (Lovenox) 30 mg SC DAILY [facility] Last Admin: 07/31/17 12:35 Dose: Not Given Ergocalciferol (Drisdol 50,000 Intl Units Cap) 1 cap PO QWK [facility] Furosemide (Lasix) 40 mg IVP ONCE ONE Stop: 08/01/17 20:01 Glipizide (Glucotrol Xl) 10 mg PO BIDCC [facility] Last Admin: 08/01/17 18:38 Dose: 10 mg Cefepime HCl (Maxipime Iv 1 Gm Premix) 1 gm in 50 mls @ 100 mls/hr IVPB Q12H [facility] Insulin Human Regular (Novolin R) 0 unit SC ACHS [facility] PRN Reason: Protocol Last Admin: 08/01/17 18:38 Dose: 3 unit Levetiracetam (Keppra) 500 mg PO Q12 [facility] Last Admin: 08/01/17 10:49 Dose: 500 mg Lisinopril (Zestril) 5 mg PO DAILY [facility] Last Admin: 08/01/17 10:50 Dose: 5 mg Quetiapine Fumarate (Seroquel) 200 mg PO HS [facility] Last Admin: 07/31/17 22:52 Dose: 200 mg Rosuvastatin Calcium (Crestor) 5 mg PO HS [facility] Last Admin: 07/31/17 22:53 Dose: 5 mg Tamsulosin HCl (Flomax) 0.4 mg PO DAILY [facility] Last Admin: 08/01/17 10:49 Dose: 0.4 mg Valproate Sodium (Depakene Oral Soln) 250 mg PO BID [facility] Last Admin: 08/01/17 18:38 Dose: 250 mg Vitamin [facility] 1 ea TOP BID [facility] Last Admin: 08/01/17 18:39 Dose: 1 ea - Labs Labs: 08/01/17 08:21 08/01/17 08:21 PT 14.0 SECONDS (9.7-12.2) H 07/31/17 13:47 INR 1.2 07/31/17 13:47 APTT 41 SECONDS (21-34) H 07/31/17 13:47
[2017-08-01] MEDS: Cefepime IV 1 gm in Dextrose 1 GM/50 ML BAG IVPB SCH (19:56)
[2017-08-02] MEDS: Albuterol-Ipratrop 3 mg / 0.5 (3 ml) UD INH SCH ×4 (01:10→20:14)
[2017-08-02] MEDS: Cefepime IV 1 gm in Dextrose 1 GM/50 ML BAG IVPB SCH ×2 (05:30→18:35)
[2017-08-02] MEDS: GlipiZIDE 10 mg SR Tab PO SCH ×2 (08:29→18:30)
[2017-08-02] MEDS: (Novolin R) Insulin Human Regular 100 units/ml vial SC SCH ×4 (08:29→22:00)
[2017-08-02] MEDS ORDERED: Ergocalciferol 50,000 Intl Units Cap PO SCH (10:00)
[2017-08-02] MEDS: Bacitracin 500 Units/gm Oint Foilpak UD TOP SCH ×2 (10:21→18:28)
[2017-08-02] MEDS: Valproic Acid 250 mg/5 ml UD Cup PO SCH ×2 (10:22→18:30)
[2017-08-02] MEDS: levETIRAcetam 100 mg/ml (5ml) Oral Syringe PO SCH ×2 (10:23→23:21)
[2017-08-02 12:16] LABS: CHLORIDE 100 mmol/L (98-107); POTASSIUM 3.9 mmol/L (3.6-5.2); SODIUM 139 mmol/L (132-148)
[2017-08-02 12:18] LABS: GFR AFRICAN-AMERICAN > 60
[2017-08-02 12:19] LABS: ALKALINE PHOSPHATASE 157 U/L (38-126); ALT/SGPT 112 U/L (21-72); AST/SGOT 64 U/L (17-59); BILIRUBIN,TOTAL 0.5 mg/dL (0.2-1.3); BLOOD UREA NITROGEN 26 mg/dL (9-20); CARBON DIOXIDE 26 mmol/L (22-30); GLUCOSE,RANDOM 245 mg/dL (75-110); TOTAL PROTEIN 7.5 g/dL (6.3-8.3)
[2017-08-02 12:20] LABS: CALCIUM 9.7 mg/dl (8.6-10.4)
[2017-08-02] MEDS: Vitamins A & D Oint UD Foilpak TOP SCH ×2 (12:29→18:30)
[2017-08-02 14:33] LABS: BASO % 0.5 % (0.0-2.0); EOS # 0.3 K/uL (0.0-0.7); EOS % 3.5 % (0.0-4.0); HEMATOCRIT 27.2 % (35.0-51.0); LYMPH # 1.7 K/uL (1.0-4.3); LYMPH % 21.1 % (20.0-40.0); MEAN CELL VOLUME 83.2 fL (80.0-94.0); MEAN CORPUSCULAR HEMOGLOBIN 27.3 pg (27.0-31.0); MEAN CORPUSCULAR HGB CONC 32.9 g/dL (33.0-37.0); MONO # 0.7 K/uL (0.0-0.8); MONO % 8.4 % (0.0-10.0); RED CELL DISTRIBUTION WIDTH 13.6 % (11.5-14.5); WHITE BLOOD COUNT 7.9 K/uL (4.8-10.8)
[2017-08-02 14:37] LABS: PLATELET COUNT 44 K/uL (130-400)
[2017-08-02 15:57] LABS: EOSINOPHIL 6 % (0-4); METAMYELOCYTE 1 % (0-0); MYELOCYTE 9 % (0-0); NEUTROPHIL 50 % (50-75); TOTAL CELLS COUNTED 100
[2017-08-02 15:58] LABS: LARGE PLATELETS PRESENT
--- NOTE | 2017-08-02 17:30 | CP.PCM.PN ---
Subjective - Date & Time of Evaluation Date of Evaluation: 08/02/17 Time of Evaluation: 08:00 - Subjective Subjective: platelets better iv rx in progress Objective - Vital Signs/Intake and Output Vital Signs (last 24 hours): Temp Pulse Resp BP Pulse Ox 98.0 F 112 H 20 127/69 97 08/02/17 08:59 08/02/17 08:59 08/02/17 08:59 08/02/17 08:59 08/02/17 08:59 Intake and Output: 08/02/17 08/02/17 06:59 18:59 Intake Total 806 Balance 806 - Medications Medications: Current Medications Acetaminophen (Tylenol 650 Mg Supp) 650 mg [place] Q6 PRN PRN Reason: Temperature Albuterol/Ipratropium (Duoneb 3 Mg/0.5 Mg (3 Ml) Ud) 3 ml INH RQ6 [facility] Last Admin: 08/02/17 14:16 Dose: Not Given Alprazolam (Xanax) 0.5 mg PO TID [facility] Last Admin: 08/02/17 14:04 Dose: Not Given Aspirin (Ecotrin) 81 mg PO DAILY [facility] Last Admin: 07/31/17 12:34 Dose: Not Given Bacitracin (Bacitracin) 1 ea TOP BID [facility] Last Admin: 08/02/17 10:21 Dose: 1 ea Enoxaparin Sodium (Lovenox) 30 mg SC DAILY [facility] Last Admin: 07/31/17 12:35 Dose: Not Given Ergocalciferol (Drisdol 50,000 Intl Units Cap) 1 cap PO QWK [facility] Last Admin: 08/02/17 10:21 Dose: 1 cap Glipizide (Glucotrol Xl) 10 mg PO BIDCC [facility] Last Admin: 08/02/17 08:29 Dose: 10 mg Cefepime HCl (Maxipime Iv 1 Gm Premix) 1 gm in 50 mls @ 100 mls/hr IVPB Q12H [facility] Last Admin: 08/02/17 05:30 Dose: 100 mls/hr Insulin Human Regular (Novolin R) 0 unit SC ACHS [facility] PRN Reason: Protocol Last Admin: 08/02/17 12:29 Dose: 4 unit Levetiracetam (Keppra) 500 mg PO Q12 [facility] Last Admin: 08/02/17 10:23 Dose: 500 mg Lisinopril (Zestril) 5 mg PO DAILY [facility] Last Admin: 08/02/17 10:21 Dose: 5 mg Quetiapine Fumarate (Seroquel) 200 mg PO HS [facility] Last Admin: 08/01/17 23:05 Dose: 200 mg Tamsulosin HCl (Flomax) 0.4 mg PO DAILY [facility] Last Admin: 08/02/17 10:21 Dose: 0.4 mg Valproate Sodium (Depakene Oral Soln) 250 mg PO BID [facility] Last Admin: 08/02/17 10:22 Dose: 250 mg Vitamin A (Vitamin A & D Oint Ud Foilpak) 1 ea TOP BID [facility] Last Admin: 08/02/17 12:29 Dose: 1 ea - Labs Labs: 08/02/17 14:04 08/02/17 11:51 PT 14.0 SECONDS (9.7-12.2) H 07/31/17 13:47 INR 1.2 07/31/17 13:47 APTT 41 SECONDS (21-34) H 07/31/17 13:47 - Constitutional Appears: Non-toxic, Confused, Cachectic, Chronically Ill - Head Exam Head Exam: NORMOCEPHALIC - Eye Exam Eye Exam: PERRL. absent: Scleral icterus - ENT Exam ENT Exam: Mucous Membranes Dry - Neck Exam Neck Exam: absent: Lymphadenopathy - Respiratory Exam Respiratory Exam: Decreased Breath Sounds - Cardiovascular Exam Cardiovascular Exam: REGULAR RHYTHM - GI/Abdominal Exam GI & Abdominal Exam: Distended, Soft - Rectal Exam Rectal Exam: Deferred - Exam Exam: NORMAL INSPECTION - Extremities Exam Extremities Exam: absent: Pedal Edema - Back Exam Back Exam: absent: CVA tenderness (L), CVA tenderness (R) - Neurological Exam Neurological Exam: Alert, Awake, Oriented x3 Assessment and Plan (1) History of CVA (cerebrovascular accident) Status: Acute (2) Sepsis Status: Acute (3) Acute renal insufficiency Status: Acute (4) Agitation Status: Acute (5) Altered mental status Status: Acute (6) Anxiety Status: Acute (7) Aspiration pneumonia Status: Acute (8) CVA (cerebral infarction) Status: Acute (9) Confusion Status: Acute (10) Confusion after a seizure Status: Acute (11) Dehydration Status: Acute (12) Dementia Status: Acute (13) Diabetes Status: Acute (14) History of cerebrovascular accident (CVA) with residual deficit Status: Acute (15) History of seizures Status: Acute (16) Lethargy Status: Acute (17) Neurocognitive disorder Status: Acute
--- NOTE | 2017-08-02 19:28 | CP.PCM.PN ---
Subjective - Date & Time of Evaluation Date of Evaluation: 08/02/17 Time of Evaluation: 19:28 Objective - Vital Signs/Intake and Output Vital Signs (last 24 hours): Temp Pulse Resp BP Pulse Ox 98.2 F 106 H 20 153/70 H 98 08/02/17 16:00 08/02/17 16:00 08/02/17 16:00 08/02/17 16:00 08/02/17 16:00 - Medications Medications: Current Medications Acetaminophen (Tylenol 650 Mg Supp) 650 mg [place] Q6 PRN PRN Reason: Temperature Albuterol/Ipratropium (Duoneb 3 Mg/0.5 Mg (3 Ml) Ud) 3 ml INH RQ6 [facility] Last Admin: 08/02/17 14:16 Dose: Not Given Alprazolam (Xanax) 0.5 mg PO TID [facility] Last Admin: 08/02/17 18:30 Dose: 0.5 mg Aspirin (Ecotrin) 81 mg PO DAILY [facility] Last Admin: 07/31/17 12:34 Dose: Not Given Bacitracin (Bacitracin) 1 ea TOP BID [facility] Last Admin: 08/02/17 18:28 Dose: 1 ea Enoxaparin Sodium (Lovenox) 30 mg SC DAILY [facility] Last Admin: 07/31/17 12:35 Dose: Not Given Ergocalciferol (Drisdol 50,000 Intl Units Cap) 1 cap PO QWK [facility] Last Admin: 08/02/17 10:21 Dose: 1 cap Glipizide (Glucotrol Xl) 10 mg PO BIDCC [facility] Last Admin: 08/02/17 18:30 Dose: 10 mg Cefepime HCl (Maxipime Iv 1 Gm Premix) 1 gm in 50 mls @ 100 mls/hr IVPB Q12H [facility] Last Admin: 08/02/17 18:35 Dose: 100 mls/hr Insulin Human Regular (Novolin R) 0 unit SC ACHS [facility] PRN Reason: Protocol Last Admin: 08/02/17 18:25 Dose: 3 unit Levetiracetam (Keppra) 500 mg PO Q12 [facility] Last Admin: 08/02/17 10:23 Dose: 500 mg Lisinopril (Zestril) 5 mg PO DAILY [facility] Last Admin: 08/02/17 10:21 Dose: 5 mg Quetiapine Fumarate (Seroquel) 200 mg PO HS [facility] Last Admin: 08/01/17 23:05 Dose: 200 mg Tamsulosin HCl (Flomax) 0.4 mg PO DAILY [facility] Last Admin: 08/02/17 10:21 Dose: 0.4 mg Valproate Sodium (Depakene Oral Soln) 250 mg PO BID [facility] Last Admin: 08/02/17 18:30 Dose: 250 mg Vitamin A (Vitamin A & D Oint Ud Foilpak) 1 ea TOP BID [facility] Last Admin: 08/02/17 18:30 Dose: 1 ea - Labs Labs: 08/02/17 14:04 08/02/17 11:51 PT 14.0 SECONDS (9.7-12.2) H 07/31/17 13:47 INR 1.2 07/31/17 13:47 APTT 41 SECONDS (21-34) H 07/31/17 13:47
--- NOTE | 2017-08-02 20:13 | CP.PCM.PN ---
Subjective - Date & Time of Evaluation Date of Evaluation: 08/02/17 Time of Evaluation: 10:40 - Subjective Subjective: clinically same Objective - Vital Signs/Intake and Output Vital Signs (last 24 hours): Temp Pulse Resp BP Pulse Ox 98.2 F 106 H 20 153/70 H 98 08/02/17 16:00 08/02/17 16:00 08/02/17 16:00 08/02/17 16:00 08/02/17 16:00 - Medications Medications: Current Medications Acetaminophen (Tylenol 650 Mg Supp) 650 mg [place] Q6 PRN PRN Reason: Temperature Albuterol/Ipratropium (Duoneb 3 Mg/0.5 Mg (3 Ml) Ud) 3 ml INH RQ6 [facility] Last Admin: 08/02/17 14:16 Dose: Not Given Alprazolam (Xanax) 0.5 mg PO TID [facility] Last Admin: 08/02/17 18:30 Dose: 0.5 mg Aspirin (Ecotrin) 81 mg PO DAILY [facility] Last Admin: 07/31/17 12:34 Dose: Not Given Bacitracin (Bacitracin) 1 ea TOP BID [facility] Last Admin: 08/02/17 18:28 Dose: 1 ea Enoxaparin Sodium (Lovenox) 30 mg SC DAILY [facility] Last Admin: 07/31/17 12:35 Dose: Not Given Ergocalciferol (Drisdol 50,000 Intl Units Cap) 1 cap PO QWK [facility] Last Admin: 08/02/17 10:21 Dose: 1 cap Glipizide (Glucotrol Xl) 10 mg PO BIDCC [facility] Last Admin: 08/02/17 18:30 Dose: 10 mg Cefepime HCl (Maxipime Iv 1 Gm Premix) 1 gm in 50 mls @ 100 mls/hr IVPB Q12H [facility] Last Admin: 08/02/17 18:35 Dose: 100 mls/hr Insulin Human Regular (Novolin R) 0 unit SC ACHS [facility] PRN Reason: Protocol Last Admin: 08/02/17 18:25 Dose: 3 unit Levetiracetam (Keppra) 500 mg PO Q12 [facility] Last Admin: 08/02/17 10:23 Dose: 500 mg Lisinopril (Zestril) 5 mg PO DAILY [facility] Last Admin: 08/02/17 10:21 Dose: 5 mg Quetiapine Fumarate (Seroquel) 200 mg PO HS [facility] Last Admin: 08/01/17 23:05 Dose: 200 mg Tamsulosin HCl (Flomax) 0.4 mg PO DAILY [facility] Last Admin: 08/02/17 10:21 Dose: 0.4 mg Valproate Sodium (Depakene Oral Soln) 250 mg PO BID [facility] Last Admin: 08/02/17 18:30 Dose: 250 mg Vitamin A (Vitamin A & D Oint Ud Foilpak) 1 ea TOP BID [facility] Last Admin: 08/02/17 18:30 Dose: 1 ea - Labs Labs: 08/02/17 14:04 08/02/17 11:51 PT 14.0 SECONDS (9.7-12.2) H 07/31/17 13:47 INR 1.2 07/31/17 13:47 APTT 41 SECONDS (21-34) H 07/31/17 13:47
[2017-08-03] MEDS: Albuterol-Ipratrop 3 mg / 0.5 (3 ml) UD INH SCH ×4 (01:29→20:54)
--- NOTE | 2017-08-03 02:34 | CP.PCM.PN ---
Subjective - Date & Time of Evaluation Date of Evaluation: 08/01/17 Time of Evaluation: 12:00 - Subjective Subjective: Appears comfortable for plt transfusion Objective - Vital Signs/Intake and Output Vital Signs (last 24 hours): Temp Pulse Resp BP Pulse Ox 97.8 F 106 H 20 117/74 95 08/02/17 23:15 08/02/17 23:36 08/02/17 23:15 08/02/17 23:15 08/02/17 23:15 - Medications Medications: Current Medications Acetaminophen (Tylenol 650 Mg Supp) 650 mg [place] Q6 PRN PRN Reason: Temperature Albuterol/Ipratropium (Duoneb 3 Mg/0.5 Mg (3 Ml) Ud) 3 ml INH RQ6 [facility] Last Admin: 08/03/17 01:29 Dose: Not Given Alprazolam (Xanax) 0.5 mg PO TID [facility] Last Admin: 08/02/17 18:30 Dose: 0.5 mg Aspirin (Ecotrin) 81 mg PO DAILY [facility] Last Admin: 07/31/17 12:34 Dose: Not Given Bacitracin (Bacitracin) 1 ea TOP BID [facility] Last Admin: 08/02/17 18:28 Dose: 1 ea Enoxaparin Sodium (Lovenox) 30 mg SC DAILY [facility] Last Admin: 07/31/17 12:35 Dose: Not Given Ergocalciferol (Drisdol 50,000 Intl Units Cap) 1 cap PO QWK [facility] Last Admin: 08/02/17 10:21 Dose: 1 cap Glipizide (Glucotrol Xl) 10 mg PO BIDCC [facility] Last Admin: 08/02/17 18:30 Dose: 10 mg Cefepime HCl (Maxipime Iv 1 Gm Premix) 1 gm in 50 mls @ 100 mls/hr IVPB Q12H [facility] Last Admin: 08/02/17 18:35 Dose: 100 mls/hr Insulin Human Regular (Novolin R) 0 unit SC ACHS [facility] PRN Reason: Protocol Last Admin: 08/02/17 22:00 Dose: Not Given Levetiracetam (Keppra) 500 mg PO Q12 [facility] Last Admin: 08/02/17 23:21 Dose: 500 mg Lisinopril (Zestril) 5 mg PO DAILY [facility] Last Admin: 08/02/17 10:21 Dose: 5 mg Quetiapine Fumarate (Seroquel) 200 mg PO HS [facility] Last Admin: 08/02/17 23:22 Dose: 200 mg Tamsulosin HCl (Flomax) 0.4 mg PO DAILY [facility] Last Admin: 08/02/17 10:21 Dose: 0.4 mg Valproate Sodium (Depakene Oral Soln) 250 mg PO BID [facility] Last Admin: 08/02/17 18:30 Dose: 250 mg Vitamin A (Vitamin A & D Oint Ud Foilpak) 1 ea TOP BID [facility] Last Admin: 08/02/17 18:30 Dose: 1 ea - Labs Labs: 08/02/17 14:04 08/02/17 11:51 PT 14.0 SECONDS (9.7-12.2) H 07/31/17 13:47 INR 1.2 07/31/17 13:47 APTT 41 SECONDS (21-34) H 07/31/17 13:47 - Head Exam Head Exam: ATRAUMATIC - Eye Exam Eye Exam: Normal appearance - ENT Exam ENT Exam: Mucous Membranes Dry - Respiratory Exam Respiratory Exam: NORMAL BREATHING PATTERN - Cardiovascular Exam Cardiovascular Exam: +S1, +S2 - GI/Abdominal Exam GI & Abdominal Exam: Normal Bowel Sounds Assessment and Plan (1) Thrombocytopenia Assessment & Plan: f/u heparin Ab ?medication induced; vancomycin discontinued ?sepsis plt transfusion Status: Acute (2) Anemia Assessment & Plan: f/u work up Status: Acute (3) Coagulopathy Assessment & Plan: nutritional rule out DIC Status: Acute
--- NOTE | 2017-08-03 03:43 | CP.PCM.PN ---
Subjective - Date & Time of Evaluation Date of Evaluation: 08/02/17 Time of Evaluation: 14:00 - Subjective Subjective: Appears comfortable family at bedside Objective - Vital Signs/Intake and Output Vital Signs (last 24 hours): Temp Pulse Resp BP Pulse Ox 97.8 F 106 H 20 117/74 95 08/02/17 23:15 08/02/17 23:36 08/02/17 23:15 08/02/17 23:15 08/02/17 23:15 - Medications Medications: Current Medications Acetaminophen (Tylenol 650 Mg Supp) 650 mg [place] Q6 PRN PRN Reason: Temperature Albuterol/Ipratropium (Duoneb 3 Mg/0.5 Mg (3 Ml) Ud) 3 ml INH RQ6 [facility] Last Admin: 08/03/17 01:29 Dose: Not Given Alprazolam (Xanax) 0.5 mg PO TID [facility] Last Admin: 08/02/17 18:30 Dose: 0.5 mg Aspirin (Ecotrin) 81 mg PO DAILY [facility] Last Admin: 07/31/17 12:34 Dose: Not Given Bacitracin (Bacitracin) 1 ea TOP BID [facility] Last Admin: 08/02/17 18:28 Dose: 1 ea Enoxaparin Sodium (Lovenox) 30 mg SC DAILY [facility] Last Admin: 07/31/17 12:35 Dose: Not Given Ergocalciferol (Drisdol 50,000 Intl Units Cap) 1 cap PO QWK [facility] Last Admin: 08/02/17 10:21 Dose: 1 cap Glipizide (Glucotrol Xl) 10 mg PO BIDCC [facility] Last Admin: 08/02/17 18:30 Dose: 10 mg Cefepime HCl (Maxipime Iv 1 Gm Premix) 1 gm in 50 mls @ 100 mls/hr IVPB Q12H [facility] Last Admin: 08/02/17 18:35 Dose: 100 mls/hr Insulin Human Regular (Novolin R) 0 unit SC ACHS [facility] PRN Reason: Protocol Last Admin: 08/02/17 22:00 Dose: Not Given Levetiracetam (Keppra) 500 mg PO Q12 [facility] Last Admin: 08/02/17 23:21 Dose: 500 mg Lisinopril (Zestril) 5 mg PO DAILY [facility] Last Admin: 08/02/17 10:21 Dose: 5 mg Quetiapine Fumarate (Seroquel) 200 mg PO HS [facility] Last Admin: 08/02/17 23:22 Dose: 200 mg Tamsulosin HCl (Flomax) 0.4 mg PO DAILY [facility] Last Admin: 08/02/17 10:21 Dose: 0.4 mg Valproate Sodium (Depakene Oral Soln) 250 mg PO BID [facility] Last Admin: 08/02/17 18:30 Dose: 250 mg Vitamin A (Vitamin A & D Oint Ud Foilpak) 1 ea TOP BID [facility] Last Admin: 08/02/17 18:30 Dose: 1 ea - Labs Labs: 08/02/17 14:04 08/02/17 11:51 PT 14.0 SECONDS (9.7-12.2) H 07/31/17 13:47 INR 1.2 07/31/17 13:47 APTT 41 SECONDS (21-34) H 07/31/17 13:47 - Head Exam Head Exam: ATRAUMATIC - Eye Exam Eye Exam: Normal appearance - ENT Exam ENT Exam: Mucous Membranes Dry - Respiratory Exam Respiratory Exam: NORMAL BREATHING PATTERN - Cardiovascular Exam Cardiovascular Exam: +S1, +S2 - GI/Abdominal Exam GI & Abdominal Exam: Normal Bowel Sounds Assessment and Plan (1) Thrombocytopenia Assessment & Plan: plt improved Status: Acute (2) Anemia Status: Acute (3) Coagulopathy Status: Acute
[2017-08-03] MEDS: Cefepime IV 1 gm in Dextrose 1 GM/50 ML BAG IVPB SCH ×2 (05:20→19:51)
[2017-08-03] MEDS: (Novolin R) Insulin Human Regular 100 units/ml vial SC SCH ×4 (08:30→22:22)
[2017-08-03] MEDS: GlipiZIDE 10 mg SR Tab PO SCH ×2 (08:40→19:48)
[2017-08-03 08:59] LABS: BASO # 0.1 K/uL (0.0-0.2); BASO % 0.6 % (0.0-2.0); EOS # 0.4 K/uL (0.0-0.7); EOS % 3.9 % (0.0-4.0); HEMATOCRIT 26.4 % (35.0-51.0); LYMPH # 3.3 K/uL (1.0-4.3); LYMPH % 31.1 % (20.0-40.0); MEAN CELL VOLUME 83.5 fL (80.0-94.0); MEAN CORPUSCULAR HEMOGLOBIN 27.5 pg (27.0-31.0); MEAN CORPUSCULAR HGB CONC 32.9 g/dL (33.0-37.0); MEAN PLATELET VOLUME 10.1 fL (7.2-11.7); MONO # 0.7 K/uL (0.0-0.8); RED CELL DISTRIBUTION WIDTH 13.8 % (11.5-14.5); WHITE BLOOD COUNT 10.6 K/uL (4.8-10.8)
[2017-08-03] MEDS: levETIRAcetam 100 mg/ml (5ml) Oral Syringe PO SCH ×2 (09:05→22:21)
[2017-08-03] MEDS: Valproic Acid 250 mg/5 ml UD Cup PO SCH ×2 (09:05→19:48)
[2017-08-03] MEDS: Vitamins A & D Oint UD Foilpak TOP SCH ×2 (09:05→19:48)
[2017-08-03] MEDS: Bacitracin 500 Units/gm Oint Foilpak UD TOP SCH ×2 (09:19→19:47)
[2017-08-03 09:23] LABS: ALB/GLOB RATIO 0.9 (1.0-2.1); ALKALINE PHOSPHATASE 135 U/L (38-126); ALT/SGPT 113 U/L (21-72); AST/SGOT 48 U/L (17-59); BILIRUBIN,TOTAL 0.4 mg/dL (0.2-1.3); BLOOD UREA NITROGEN 33 mg/dL (9-20); CALCIUM 9.6 mg/dl (8.6-10.4); CARBON DIOXIDE 30 mmol/L (22-30); CHLORIDE 100 mmol/L (98-107); GFR AFRICAN-AMERICAN 54; GLUCOSE,RANDOM 166 mg/dL (75-110); POTASSIUM 3.6 mmol/L (3.6-5.2); SODIUM 143 mmol/L (132-148); TOTAL PROTEIN 7.1 g/dL (6.3-8.3)
[2017-08-03 10:20] LABS: FOLATE > 20.0 ng/mL
--- NOTE | 2017-08-03 14:01 | CP.PCM.PN ---
Subjective - Date & Time of Evaluation Date of Evaluation: 08/03/17 Time of Evaluation: 14:01 - Subjective Subjective: DISCUSSED WITH PT'S DAUGHTER TREVON AND DR. SARMIENTO PLAN FOR REPEAT LABS IN AM AND LIKELY D/C HOME AFTERWARDS IF STABLE. ALL LABS REVIEWED WITH TREVON AND . RX FOR AUGMENTIN LEFT IN PT'S CHART AND TO BE GIVEN UPON D/C (DAUGHTER AWARE). SUNDAY COVERING HONEYCOMB DECAPPER TO F/U WITH PT TOMORROW AND D/C IF STABLE. NO FURTHER ORDERS. Objective - Vital Signs/Intake and Output Vital Signs (last 24 hours): Temp Pulse Resp BP Pulse Ox 97.8 F 94 H 20 117/74 95 08/02/17 23:15 08/03/17 11:48 08/02/17 23:15 08/02/17 23:15 08/02/17 23:15 - Medications Medications: Current Medications Acetaminophen (Tylenol 650 Mg Supp) 650 mg UT Q6 PRN PRN Reason: Temperature Albuterol/Ipratropium (Duoneb 3 Mg/0.5 Mg (3 Ml) Ud) 3 ml INH RQ6 [facility] Last Admin: 08/03/17 13:29 Dose: 3 ml Alprazolam (Xanax) 0.5 mg PO TID [facility] Last Admin: 08/03/17 09:05 Dose: 0.5 mg Aspirin (Ecotrin) 81 mg PO DAILY [facility] Last Admin: 07/31/17 12:34 Dose: Not Given Bacitracin (Bacitracin) 1 ea TOP BID [facility] Last Admin: 08/03/17 09:19 Dose: 1 ea Enoxaparin Sodium (Lovenox) 30 mg SC DAILY [facility] Last Admin: 07/31/17 12:35 Dose: Not Given Ergocalciferol (Drisdol 50,000 Intl Units Cap) 1 cap PO QWK [facility] Last Admin: 08/02/17 10:21 Dose: 1 cap Glipizide (Glucotrol Xl) 10 mg PO BIDCC [facility] Last Admin: 08/03/17 08:40 Dose: 10 mg Cefepime HCl (Maxipime Iv 1 Gm Premix) 1 gm in 50 mls @ 100 mls/hr IVPB Q12H [facility] Last Admin: 08/03/17 05:20 Dose: 100 mls/hr Insulin Human Regular (Novolin R) 0 unit SC ACHS [facility] PRN Reason: Protocol Last Admin: 08/03/17 08:30 Dose: 2 unit Levetiracetam (Keppra) 500 mg PO Q12 [facility] Last Admin: 08/03/17 09:05 Dose: 500 mg Lisinopril (Zestril) 5 mg PO DAILY [facility] Last Admin: 08/03/17 09:04 Dose: 5 mg Quetiapine Fumarate (Seroquel) 200 mg PO HS [facility] Last Admin: 08/02/17 23:22 Dose: 200 mg Tamsulosin HCl (Flomax) 0.4 mg PO DAILY [facility] Last Admin: 08/03/17 09:05 Dose: 0.4 mg Valproate Sodium (Depakene Oral Soln) 250 mg PO BID [facility] Last Admin: 08/03/17 09:05 Dose: 250 mg Vitamin A (Vitamin A & D Oint Ud Foilpak) 1 ea TOP BID [facility] Last Admin: 08/03/17 09:05 Dose: 1 ea - Labs Labs: 08/03/17 08:44 08/03/17 08:44 PT 14.0 SECONDS (9.7-12.2) H 07/31/17 13:47 INR 1.2 07/31/17 13:47 APTT 41 SECONDS (21-34) H 07/31/17 13:47
--- NOTE | 2017-08-03 14:13 | CP.PCM.PN ---
Subjective - Date & Time of Evaluation Date of Evaluation: 08/03/17 Time of Evaluation: 14:12 Objective - Vital Signs/Intake and Output Vital Signs (last 24 hours): Temp Pulse Resp BP Pulse Ox 97.8 F 94 H 20 117/74 95 08/02/17 23:15 08/03/17 11:48 08/02/17 23:15 08/02/17 23:15 08/02/17 23:15 - Medications Medications: Current Medications Acetaminophen (Tylenol 650 Mg Supp) 650 mg LA Q6 PRN PRN Reason: Temperature Albuterol/Ipratropium (Duoneb 3 Mg/0.5 Mg (3 Ml) Ud) 3 ml INH RQ6 [facility] Last Admin: 08/03/17 13:29 Dose: 3 ml Alprazolam (Xanax) 0.5 mg PO TID [facility] Last Admin: 08/03/17 09:05 Dose: 0.5 mg Aspirin (Ecotrin) 81 mg PO DAILY [facility] Last Admin: 07/31/17 12:34 Dose: Not Given Bacitracin (Bacitracin) 1 ea TOP BID [facility] Last Admin: 08/03/17 09:19 Dose: 1 ea Enoxaparin Sodium (Lovenox) 30 mg SC DAILY [facility] Last Admin: 07/31/17 12:35 Dose: Not Given Ergocalciferol (Drisdol 50,000 Intl Units Cap) 1 cap PO QWK [facility] Last Admin: 08/02/17 10:21 Dose: 1 cap Glipizide (Glucotrol Xl) 10 mg PO BIDCC [facility] Last Admin: 08/03/17 08:40 Dose: 10 mg Cefepime HCl (Maxipime Iv 1 Gm Premix) 1 gm in 50 mls @ 100 mls/hr IVPB Q12H [facility] Last Admin: 08/03/17 05:20 Dose: 100 mls/hr Insulin Human Regular (Novolin R) 0 unit SC ACHS [facility] PRN Reason: Protocol Last Admin: 08/03/17 12:30 Dose: 4 unit Levetiracetam (Keppra) 500 mg PO Q12 [facility] Last Admin: 08/03/17 09:05 Dose: 500 mg Lisinopril (Zestril) 5 mg PO DAILY [facility] Last Admin: 08/03/17 09:04 Dose: 5 mg Quetiapine Fumarate (Seroquel) 200 mg PO HS [facility] Last Admin: 08/02/17 23:22 Dose: 200 mg Tamsulosin HCl (Flomax) 0.4 mg PO DAILY [facility] Last Admin: 08/03/17 09:05 Dose: 0.4 mg Valproate Sodium (Depakene Oral Soln) 250 mg PO BID [facility] Last Admin: 08/03/17 09:05 Dose: 250 mg Vitamin A (Vitamin A & D Oint Ud Foilpak) 1 ea TOP BID [facility] Last Admin: 08/03/17 09:05 Dose: 1 ea - Labs Labs: 08/03/17 08:44 08/03/17 08:44 PT 14.0 SECONDS (9.7-12.2) H 07/31/17 13:47 INR 1.2 07/31/17 13:47 APTT 41 SECONDS (21-34) H 07/31/17 13:47
--- NOTE | 2017-08-03 15:47 | CP.PCM.PN ---
Subjective - Date & Time of Evaluation Date of Evaluation: 08/03/17 Time of Evaluation: 07:00 - Subjective Subjective: IV RX IN PROGRESS PLTS BETTER SEEN BY PULM Objective - Vital Signs/Intake and Output Vital Signs (last 24 hours): Temp Pulse Resp BP Pulse Ox 97.8 F 94 H 20 117/74 95 08/02/17 23:15 08/03/17 11:48 08/02/17 23:15 08/02/17 23:15 08/02/17 23:15 - Medications Medications: Current Medications Acetaminophen (Tylenol 650 Mg Supp) 650 mg LA Q6 PRN PRN Reason: Temperature Albuterol/Ipratropium (Duoneb 3 Mg/0.5 Mg (3 Ml) Ud) 3 ml INH RQ6 [facility] Last Admin: 08/03/17 13:29 Dose: 3 ml Alprazolam (Xanax) 0.5 mg PO TID [facility] Last Admin: 08/03/17 14:13 Dose: 0.5 mg Aspirin (Ecotrin) 81 mg PO DAILY [facility] Last Admin: 07/31/17 12:34 Dose: Not Given Bacitracin (Bacitracin) 1 ea TOP BID [facility] Last Admin: 08/03/17 09:19 Dose: 1 ea Enoxaparin Sodium (Lovenox) 30 mg SC DAILY [facility] Last Admin: 07/31/17 12:35 Dose: Not Given Ergocalciferol (Drisdol 50,000 Intl Units Cap) 1 cap PO QWK [facility] Last Admin: 08/02/17 10:21 Dose: 1 cap Glipizide (Glucotrol Xl) 10 mg PO BIDCC [facility] Last Admin: 08/03/17 08:40 Dose: 10 mg Cefepime HCl (Maxipime Iv 1 Gm Premix) 1 gm in 50 mls @ 100 mls/hr IVPB Q12H [facility] Last Admin: 08/03/17 05:20 Dose: 100 mls/hr Insulin Human Regular (Novolin R) 0 unit SC ACHS [facility] PRN Reason: Protocol Last Admin: 08/03/17 12:30 Dose: 4 unit Levetiracetam (Keppra) 500 mg PO Q12 [facility] Last Admin: 08/03/17 09:05 Dose: 500 mg Lisinopril (Zestril) 5 mg PO DAILY [facility] Last Admin: 08/03/17 09:04 Dose: 5 mg Quetiapine Fumarate (Seroquel) 200 mg PO HS [facility] Last Admin: 08/02/17 23:22 Dose: 200 mg Tamsulosin HCl (Flomax) 0.4 mg PO DAILY [facility] Last Admin: 08/03/17 09:05 Dose: 0.4 mg Valproate Sodium (Depakene Oral Soln) 250 mg PO BID [facility] Last Admin: 08/03/17 09:05 Dose: 250 mg Vitamin A (Vitamin A & D Oint Ud Foilpak) 1 ea TOP BID [facility] Last Admin: 08/03/17 09:05 Dose: 1 ea - Labs Labs: 08/03/17 08:44 08/03/17 08:44 PT 14.0 SECONDS (9.7-12.2) H 07/31/17 13:47 INR 1.2 07/31/17 13:47 APTT 41 SECONDS (21-34) H 07/31/17 13:47 - Constitutional Appears: Non-toxic, Cachectic, Chronically Ill - Head Exam Head Exam: NORMOCEPHALIC - Eye Exam Eye Exam: PERRL. absent: Scleral icterus - ENT Exam ENT Exam: Mucous Membranes Dry - Neck Exam Neck Exam: absent: Lymphadenopathy - Respiratory Exam Respiratory Exam: Decreased Breath Sounds, Clear to Ausculation Bilateral - Cardiovascular Exam Cardiovascular Exam: REGULAR RHYTHM - GI/Abdominal Exam GI & Abdominal Exam: Distended, Soft - Rectal Exam Rectal Exam: Deferred - Exam Exam: NORMAL INSPECTION - Extremities Exam Extremities Exam: absent: Pedal Edema - Back Exam Back Exam: absent: CVA tenderness (L), CVA tenderness (R) - Neurological Exam Neurological Exam: Alert, Altered, Awake Assessment and Plan (1) History of CVA (cerebrovascular accident) Status: Acute (2) Sepsis Status: Acute (3) Acute renal insufficiency Status: Acute (4) Agitation Status: Acute (5) Altered mental status Status: Acute (6) Anxiety Status: Acute (7) Aspiration pneumonia Status: Acute (8) CVA (cerebral infarction) Status: Acute (9) Confusion Status: Acute (10) Confusion after a seizure Status: Acute (11) Dehydration Status: Acute (12) Dementia Status: Acute (13) Diabetes Status: Acute (14) History of cerebrovascular accident (CVA) with residual deficit Status: Acute (15) History of seizures Status: Acute (16) Lethargy Status: Acute (17) Neurocognitive disorder Status: Acute - Assessment and Plan (Free Text) Assessment: CONT RX PER DR OLMEDO
--- NOTE | 2017-08-03 18:31 | CP.PCM.PN ---
Subjective - Date & Time of Evaluation Date of Evaluation: 08/03/17 Time of Evaluation: 09:40 - Subjective Subjective: clinically same Objective - Vital Signs/Intake and Output Vital Signs (last 24 hours): Temp Pulse Resp BP Pulse Ox 97.8 F 97 H 20 117/74 95 08/02/17 23:15 08/03/17 12:52 08/02/17 23:15 08/02/17 23:15 08/02/17 23:15 Intake and Output: 08/03/17 08/03/17 06:59 18:59 Intake Total 650 Balance 650 - Medications Medications: Current Medications Acetaminophen (Tylenol 650 Mg Supp) 650 mg NE Q6 PRN PRN Reason: Temperature Albuterol/Ipratropium (Duoneb 3 Mg/0.5 Mg (3 Ml) Ud) 3 ml INH RQ6 [facility] Last Admin: 08/03/17 13:29 Dose: 3 ml Alprazolam (Xanax) 0.5 mg PO TID [facility] Last Admin: 08/03/17 14:13 Dose: 0.5 mg Aspirin (Ecotrin) 81 mg PO DAILY [facility] Last Admin: 07/31/17 12:34 Dose: Not Given Bacitracin (Bacitracin) 1 ea TOP BID [facility] Last Admin: 08/03/17 09:19 Dose: 1 ea Enoxaparin Sodium (Lovenox) 30 mg SC DAILY [facility] Last Admin: 07/31/17 12:35 Dose: Not Given Ergocalciferol (Drisdol 50,000 Intl Units Cap) 1 cap PO QWK [facility] Last Admin: 08/02/17 10:21 Dose: 1 cap Glipizide (Glucotrol Xl) 10 mg PO BIDCC [facility] Last Admin: 08/03/17 08:40 Dose: 10 mg Cefepime HCl (Maxipime Iv 1 Gm Premix) 1 gm in 50 mls @ 100 mls/hr IVPB Q12H [facility] Last Admin: 08/03/17 05:20 Dose: 100 mls/hr Insulin Human Regular (Novolin R) 0 unit SC ACHS [facility] PRN Reason: Protocol Last Admin: 08/03/17 17:59 Dose: 6 unit Levetiracetam (Keppra) 500 mg PO Q12 [facility] Last Admin: 08/03/17 09:05 Dose: 500 mg Lisinopril (Zestril) 5 mg PO DAILY [facility] Last Admin: 08/03/17 09:04 Dose: 5 mg Quetiapine Fumarate (Seroquel) 200 mg PO HS [facility] Last Admin: 08/02/17 23:22 Dose: 200 mg Tamsulosin HCl (Flomax) 0.4 mg PO DAILY [facility] Last Admin: 08/03/17 09:05 Dose: 0.4 mg Valproate Sodium (Depakene Oral Soln) 250 mg PO BID [facility] Last Admin: 08/03/17 09:05 Dose: 250 mg Vitamin A (Vitamin A & D Oint Ud Foilpak) 1 ea TOP BID [facility] Last Admin: 08/03/17 09:05 Dose: 1 ea - Labs Labs: 08/03/17 08:44 08/03/17 08:44 PT 14.0 SECONDS (9.7-12.2) H 07/31/17 13:47 INR 1.2 07/31/17 13:47 APTT 41 SECONDS (21-34) H 07/31/17 13:47 - Constitutional Appears: Well - Head Exam Head Exam: ATRAUMATIC, NORMAL INSPECTION, NORMOCEPHALIC - Eye Exam Eye Exam: EOMI, Normal appearance, PERRL Pupil Exam: NORMAL ACCOMODATION, PERRL - ENT Exam ENT Exam: Mucous Membranes Moist, Normal Exam - Neck Exam Neck Exam: Full ROM, Normal Inspection. absent: Lymphadenopathy - Respiratory Exam Respiratory Exam: Decreased Breath Sounds - Cardiovascular Exam Cardiovascular Exam: REGULAR RHYTHM, +S1, +S2 - GI/Abdominal Exam GI & Abdominal Exam: Soft, Diminished Bowel Sounds - Rectal Exam Rectal Exam: Deferred
[2017-08-04 00:08] VITALS: O2SAT 97
[2017-08-04] MEDS: Albuterol-Ipratrop 3 mg / 0.5 (3 ml) UD INH SCH ×3 (01:32→13:15)
[2017-08-04] MEDS: Cefepime IV 1 gm in Dextrose 1 GM/50 ML BAG IVPB SCH (05:26)
[2017-08-04 08:26] VITALS: BP 121/78
[2017-08-04] MEDS: (Novolin R) Insulin Human Regular 100 units/ml vial SC SCH ×2 (08:30→12:30)
[2017-08-04] MEDS: GlipiZIDE 10 mg SR Tab PO SCH (08:39)
[2017-08-04 08:49] LABS: CHLORIDE 103 mmol/L (98-107)
[2017-08-04 08:50] LABS: POTASSIUM 4.2 mmol/L (3.6-5.2); SODIUM 141 mmol/L (132-148)
[2017-08-04 08:52] LABS: BILIRUBIN,TOTAL 0.5 mg/dL (0.2-1.3); CARBON DIOXIDE 28 mmol/L (22-30); GFR AFRICAN-AMERICAN > 60
[2017-08-04 08:53] LABS: ALKALINE PHOSPHATASE 127 U/L (38-126); ALT/SGPT 119 U/L (21-72); AST/SGOT 38 U/L (17-59); BLOOD UREA NITROGEN 33 mg/dL (9-20); CALCIUM 9.4 mg/dl (8.6-10.4); GLUCOSE,RANDOM 153 mg/dL (75-110); TOTAL PROTEIN 7.3 g/dL (6.3-8.3)
[2017-08-04 08:56] LABS: HEMATOCRIT 29.1 % (35.0-51.0); MEAN CELL VOLUME 84.7 fL (80.0-94.0); MEAN CORPUSCULAR HEMOGLOBIN 27.8 pg (27.0-31.0); MEAN CORPUSCULAR HGB CONC 32.8 g/dL (33.0-37.0); MEAN PLATELET VOLUME 10.3 fL (7.2-11.7); RED CELL DISTRIBUTION WIDTH 13.9 % (11.5-14.5); WHITE BLOOD COUNT 11.4 K/uL (4.8-10.8)
[2017-08-04] MEDS: levETIRAcetam 100 mg/ml (5ml) Oral Syringe PO SCH (10:40)
[2017-08-04] MEDS: Valproic Acid 250 mg/5 ml UD Cup PO SCH (10:40)
[2017-08-04] MEDS: Vitamins A & D Oint UD Foilpak TOP SCH (10:40)
[2017-08-04] MEDS: Bacitracin 500 Units/gm Oint Foilpak UD TOP SCH (10:41)
[2017-08-04 11:57] VITALS: TEMP 98.1
[2017-08-04 12:16] VITALS: PULSE 99
--- NOTE | 2017-08-04 15:29 | CP.PCM.PN ---
Subjective - Date & Time of Evaluation Date of Evaluation: 08/04/17 Time of Evaluation: 09:40 - Subjective Subjective: clinically same Objective - Vital Signs/Intake and Output Vital Signs (last 24 hours): Temp Pulse Resp BP Pulse Ox 98.1 F 99 H 20 121/78 97 08/04/17 11:56 08/04/17 12:12 08/04/17 08:25 08/04/17 08:25 08/04/17 08:25 - Medications Medications: Current Medications Acetaminophen (Tylenol 650 Mg Supp) 650 mg HI Q6 PRN PRN Reason: Temperature Albuterol/Ipratropium (Duoneb 3 Mg/0.5 Mg (3 Ml) Ud) 3 ml INH RQ6 [facility] Last Admin: 08/04/17 13:15 Dose: 3 ml Alprazolam (Xanax) 0.5 mg PO TID [facility] Last Admin: 08/04/17 13:19 Dose: 0.5 mg Aspirin (Ecotrin) 81 mg PO DAILY [facility] Last Admin: 07/31/17 12:34 Dose: Not Given Bacitracin (Bacitracin) 1 ea TOP BID [facility] Last Admin: 08/04/17 10:41 Dose: 1 ea Enoxaparin Sodium (Lovenox) 30 mg SC DAILY [facility] Last Admin: 07/31/17 12:35 Dose: Not Given Ergocalciferol (Drisdol 50,000 Intl Units Cap) 1 cap PO QWK [facility] Last Admin: 08/02/17 10:21 Dose: 1 cap Glipizide (Glucotrol Xl) 10 mg PO BIDCC [facility] Last Admin: 08/04/17 08:39 Dose: 10 mg Cefepime HCl (Maxipime Iv 1 Gm Premix) 1 gm in 50 mls @ 100 mls/hr IVPB Q12H [facility] Last Admin: 08/04/17 05:26 Dose: 100 mls/hr Insulin Human Regular (Novolin R) 0 unit SC ACHS [facility] PRN Reason: Protocol Last Admin: 08/04/17 12:30 Dose: 4 unit Levetiracetam (Keppra) 500 mg PO Q12 [facility] Last Admin: 08/04/17 10:40 Dose: 500 mg Lisinopril (Zestril) 5 mg PO DAILY [facility] Last Admin: 09/16/17 10:40 Dose: 5 mg Quetiapine Fumarate (Seroquel) 200 mg PO HS [facility] Last Admin: 08/03/17 23:41 Dose: 200 mg Tamsulosin HCl (Flomax) 0.4 mg PO DAILY [facility] Last Admin: 08/04/17 10:41 Dose: 0.4 mg Valproate Sodium (Depakene Oral Soln) 250 mg PO BID [facility] Last Admin: 08/04/17 10:40 Dose: 250 mg Vitamin A (Vitamin A & D Oint Ud Foilpak) 1 ea TOP BID [facility] Last Admin: 08/04/17 10:40 Dose: 1 ea - Labs Labs: 08/04/17 08:34 08/04/17 08:34 PT 14.0 SECONDS (9.7-12.2) H 07/31/17 13:47 INR 1.2 07/31/17 13:47 APTT 41 SECONDS (21-34) H 07/31/17 13:47 - Constitutional Appears: Well - Head Exam Head Exam: ATRAUMATIC, NORMAL INSPECTION, NORMOCEPHALIC - Eye Exam Eye Exam: EOMI, Normal appearance, PERRL Pupil Exam: NORMAL ACCOMODATION, PERRL - ENT Exam ENT Exam: Mucous Membranes Moist, Normal Exam - Neck Exam Neck Exam: Full ROM, Normal Inspection. absent: Lymphadenopathy - Respiratory Exam Respiratory Exam: Decreased Breath Sounds - Cardiovascular Exam Cardiovascular Exam: REGULAR RHYTHM, +S1, +S2 - GI/Abdominal Exam GI & Abdominal Exam: Soft, Diminished Bowel Sounds - Rectal Exam Rectal Exam: Deferred
--- NOTE | 2017-08-04 18:18 | CP.PCM.PN ---
Subjective - Date & Time of Evaluation Date of Evaluation: 08/04/17 Time of Evaluation: 11:00 - Subjective Subjective: awake, confused, no acute distress. Objective - Vital Signs/Intake and Output Vital Signs (last 24 hours): Temp Pulse Resp BP Pulse Ox 98.1 F 99 H 20 121/78 97 08/04/17 11:56 08/04/17 12:12 08/04/17 08:25 08/04/17 08:25 08/04/17 08:25 Intake and Output: 08/04/17 08/04/17 06:59 18:59 Intake Total 500 Balance 500 - Labs Labs: 08/04/17 08:34 08/04/17 08:34 PT 14.0 SECONDS (9.7-12.2) H 07/31/17 13:47 INR 1.2 07/31/17 13:47 APTT 41 SECONDS (21-34) H 07/31/17 13:47 Assessment and Plan - Assessment and Plan (Free Text) Assessment: Patient is seen and examined. Awake, aphasic, follows commands. Confused, needs total care. D/W DR Mary Urbina, plan to discharge home today. All the lab works reviewed with DR Mary Urbina , home care, home PT is arranged. Advised to follow up in the office in 1 week.
[2017-08-06 12:12] LABS: HEPARIN-IND PLATELET AB Negative (Negative)
[2017-08-06 16:58] LABS: UFH SRA RESULT Negative (Negative)
== END 2017-08-04 03:15 | disposition home health service (06) | DRG 871 ==
LOC: C.ER 21:48 → C.9E 22:49 → C.9I 23:36 → C.6T 07-27 14:26
PROVIDERS: ADMIT Internal Medicine Nephrology; ATTEND Internal Medicine Nephrology
PROC: 5A09557 Assistance with Respiratory Ventilation, Greater than 96 Consecutive Hours, Continuous Positive Airway Pressure (ICD-10-PCS; principal; 2017-07-25)
DX: A41.9 Sepsis, unspecified organism (principal); J69.0 Pneumonitis due to inhalation of food and vomit; D69.6 Thrombocytopenia, unspecified; D68.9 Coagulation defect, unspecified; I69.251 Hemiplegia and hemiparesis following other nontraumatic intracranial hemorrhage affecting right dominant side; E86.0 Dehydration; R47.01 Aphasia; G30.9 Alzheimer's disease, unspecified; F02.80 Dementia in other diseases classified elsewhere, unspecified severity, without behavioral disturbance, psychotic disturbance, mood disturbance, and anxiety; D64.9 Anemia, unspecified; E11.9 Type 2 diabetes mellitus without complications; I10 Essential (primary) hypertension; F31.9 Bipolar disorder, unspecified; F41.9 Anxiety disorder, unspecified; N40.0 Benign prostatic hyperplasia without lower urinary tract symptoms; R09.02 Hypoxemia; R65.20 Severe sepsis without septic shock; G40.909 Epilepsy, unspecified, not intractable, without status epilepticus; E78.00 Pure hypercholesterolemia, unspecified; N28.9 Disorder of kidney and ureter, unspecified; K21.9 Gastro-esophageal reflux disease without esophagitis; Z68.22 Body mass index [BMI] 22.0-22.9, adult

== ENCOUNTER 2017-11-05 11:54 | Emergency (ER) | payer MEDICARE, MEDICAID ==
[2017-11-05 12:01] VITALS: TEMP 98.7
[2017-11-05 15:25] VITALS: BP 151/83; PULSE 80; RESP 18; O2SAT 99
--- NOTE | 2017-11-05 15:43 | CT ---
PROCEDURE: CT Right Hip without Contrast HISTORY: r/o fx COMPARISON: Right hip radiographs with pelvis 11/05/2017. TECHNIQUE: A volumetric CT acquisition was performed through the right hip joint with reformatted datasets provided sagittal axial coronal planes without contrast as requested. Total DLP exam dose of 404.32 mGy FINDINGS: No acute fracture or destructive bony lesion identified. Advanced degenerative changes seen at the superolateral portion of the right acetabulum clinical sclerosis and osteophyte development. Joint space narrowing is appreciated and there is limited cortical sclerosis appreciate were ring portion of the right femoral head. No subluxation or dislocation is identified. Surrounding musculature appears intact throughout initial capture through the right iliac bone, right bi sacrum and right-sided pre bones appear unremarkable with the pubic symphysis intact. Mild degenerative changes seen through the right sacroiliac joint. IMPRESSION: No acute fracture or dislocation is seen involving the right hip joint although moderate to severe osteoarthritis is identified at the right hip joint nevertheless.
--- NOTE | 2017-11-05 16:18 | RAD ---
PROCEDURE: Right Hip with Pelvis Radiographs. HISTORY: r/o fx COMPARISON: None. FINDINGS: BONES: No acute fracture or destructive bony lesion identified. JOINTS: Advanced degenerative changes seen the bilateral hip joint border greater the right than left where osteophytes are clearly identified at the weight-bearing portion of the acetabulum. Pelvic ring appears intact including pubic symphysis. degenerative changes are mild the bilateral sacroiliac and hip joints. SOFT TISSUES: Normal. OTHER FINDINGS: None. IMPRESSION: No acute fracture dislocation right hip with the pelvic ring grossly intact. Degenerative changes are as described above. Please see separate right hip CT report also performed 11/05/2017.
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
== END 2017-11-05 17:07 | disposition home or self-care (01) ==
LOC: C.ER 11:54
DX: S70.01XA Contusion of right hip, initial encounter (principal); T22.351A Burn of third degree of right shoulder, initial encounter; W06.XXXA Fall from bed, initial encounter; M16.11 Unilateral primary osteoarthritis, right hip; E11.9 Type 2 diabetes mellitus without complications; E78.00 Pure hypercholesterolemia, unspecified; I10 Essential (primary) hypertension; G30.9 Alzheimer's disease, unspecified; F02.80 Dementia in other diseases classified elsewhere, unspecified severity, without behavioral disturbance, psychotic disturbance, mood disturbance, and anxiety

== ENCOUNTER 2018-05-21 06:41 | Inpatient (IN) | payer MEDICARE, MEDICAID ==
[2018-05-21 07:28] LABS: BASO % 0.2 % (0.0-2.0); EOS % 0.1 % (0.0-4.0); HEMOGLOBIN 12.1 g/dL (12.0-18.0); LYMPH # 1.3 K/uL (1.0-4.3); LYMPH % 11.9 % (20.0-40.0); MEAN CELL VOLUME 82.4 fL (80.0-94.0); MEAN CORPUSCULAR HEMOGLOBIN 27.6 pg (27.0-31.0); MEAN CORPUSCULAR HGB CONC 33.4 g/dL (33.0-37.0); MEAN PLATELET VOLUME 11.5 fL (7.2-11.7); MONO # 0.4 K/uL (0.0-0.8); MONO % 3.8 % (0.0-10.0); RBC 4.39 Mil/uL (4.40-5.90); RED CELL DISTRIBUTION WIDTH 13.6 % (11.5-14.5); WHITE BLOOD COUNT 10.7 K/uL (4.8-10.8)
[2018-05-21] MEDS ORDERED: Vancomycin 1 GM 1 GM/250 ML BAG IV STA (07:30)
[2018-05-21] MEDS ORDERED: Cefepime IV 1 gm in Dextrose 1 GM/50 ML BAG IVPB STA (07:31)
[2018-05-21] MEDS ORDERED: Moxifloxacin IV 400mg/250ml NS 400 MG/250 ML BAG IV STA (07:31)
[2018-05-21 07:35] LABS: VENOUS BLOOD GAS BASE EXCESS -0.6 mmol/L (0.0-2.0); VENOUS BLOOD GAS PCO2 43 mmHg (40-60); VENOUS BLOOD GAS PO2 34 mm/Hg (30-55); VENOUS BLOOD PH 7.37 (7.32-7.43)
[2018-05-21] MEDS ORDERED: Ciprofloxacin 400mg/200ml D5W 400 MG/200 ML BAG IV STA (08:09)
[2018-05-21 08:11] LABS: ALB/GLOB RATIO 1.2 (1.0-2.1); ALBUMIN 4.3 g/dL (3.5-5.0); CALCIUM 9.7 mg/dl (8.6-10.4)
[2018-05-21 08:15] LABS: SQUAMOUS EPITHIAL 1 /hpf (0-5); URINE BACTERIA RARE (<OCC); URINE BILIRUBIN NEGATIVE (NEGATIVE); URINE BLOOD 1+ (NEGATIVE); URINE CLARITY Hazy (Clear); URINE COLOR Amber (YELLOW); URINE GLUCOSE (UA) NORMAL (Normal); URINE LEUKOCYTE ESTERASE TRACE Leu/uL (Negative); URINE PROTEIN 1+ mg/dL (NEGATIVE); URINE UROBILINOGEN NORMAL mg/dL (0.2-1.0)
[2018-05-21 08:20] LABS: CK-MB 7.75 ng/mL (0.0-3.38); TROPONIN I 0.048 ng/mL (0.00-0.120)
[2018-05-21] MEDS ORDERED: Ciprofloxacin 400mg/200ml D5W 400 MG/200 ML BAG IVPB ONE (08:44)
[2018-05-21] MEDS ORDERED: Lactated Ringer's 2,000 ML ONE (08:44)
--- NOTE | 2018-05-21 08:54 | C.PDOC ---
History Of Present Illness Patient BIBA from home for evaluation of cough, fever, generalized weakness. [facility] PMHx of CVA, dementia, bipolar disorder, DM, HTN, hyperlipidemia, seizure disorder, aspiration pneumonia. Time Seen by Provider: 05/21/18 07:07 Chief Complaint (Nursing): Cough, Cold, Congestion History Per: EMS, Family History/Exam Limitations: clinical condition Onset/Duration Of Symptoms: Unknown Past Medical History Reviewed: Historical Data, Nursing Documentation, Vital Signs Vital Signs: Last Vital Signs Temp 98 F 05/21/18 23:45 Pulse 79 05/22/18 04:16 Resp 20 05/21/18 23:45 BP 139/72 05/21/18 23:45 Pulse Ox 99 05/21/18 23:45 - Medical History PMH: Alzheimer's Disease, Anxiety, Arthritis, Bipolar Disorder, CVA, Dementia (w / right sided paralysis), Depression, Diabetes, Fractures (non displaced avulsion fracture of right talus), HTN, Hypercholesterolemia, Pneumonia ( Aspiration), Seizures Surgical History: Appendectomy - [facility] Procedures ASSISTANCE WITH RESPIRATORY VENTILATION, >96 HRS, CPAP (07/25/17) MEASUREMENT OF URINARY PRESSURE, VIA OPENING (01/17/17) PSYCHIA INTERV/EVAL NEC (08/24/14) RESECTION OF PROSTATE, ENDO (01/17/17) Family History: States: No Known Family Hx - Social History Hx Tobacco Use: No Hx Alcohol Use: No Hx Substance Use: No - Immunization History Hx Tetanus Toxoid Vaccination: No Hx Influenza Vaccination: Yes Hx Pneumococcal Vaccination: Yes Review Of Systems Review Of Systems: ROS cannot be obtained secondary to pt's inabilty to answer questions. Physical Exam - Physical Exam Appears: In Acute Distress, Chronically Ill, Other (cachectic) Skin: Normal Color, Warm, Dry Head: Atraumatic, Normacephalic Eye(s): bilateral: Normal Inspection Oral Mucosa: Dry, Other (fissured tongue) Neck: Normal Cardiovascular: Rhythm Regular (tachycardic) Respiratory: No Rales, Rhonchi (B/L ), No Wheezing Gastrointestinal/Abdominal: Normal Exam, Bowel Sounds, Soft, No Tenderness Extremity: Bilateral: Atraumatic, Normal ROM Pulses: Left Dorsalis Pedis: Normal, Right Dorsalis Pedis: Normal Neurological/Psych: Other (awake, alert, moving all 4 extremities spontaneously) ED Course And Treatment - Laboratory Results Result Diagrams: 05/22/18 06:51 05/21/18 07:21 ECG: Interpreted By Me, Viewed By Me (sints tachycardia 101 bpm, normal axis, Q waves II, III, aVF, T wave inversions I, V6, no ST changes) ECG Interpretation: Abnormal O2 Sat by Pulse Oximetry: 100 (RA) Pulse Ox Interpretation: Normal - Radiology CXR: Interpreted by Me, Viewed By Me CXR Interpretation: Yes: No Acute Disease. No: Infiltrates Progress Note: Blood work, UA, CXR, EKG ordered and reviewed. Patient give IV NS boluses, broad spectrum antibiotics. 3:15PM- Patient moaning, appears to be in pain. As per nurse, patient has urinary retention, they have been unable to insert dumont catheter despite multiple attempts. I attempted to insert 16 pashto coudet catheter, patient began to have bleeding from penis and no urinary output. Coudet catheter removed. Nurse called urology to come and evaluate patient. - Physician Consult Information Physician Contacted: Bahman Urbina Outcome Of Conversation: Discussed patient with PMD, agrees with admission for dehydration, sepsis, rhabdomyolysis. Critical Care Time - Critical Care Note Total Time (in mins): 40 Documented critical care: time excludes all time spent performing seperately billable procedures. Disposition - Disposition Disposition: HOSPITALIZED Disposition Time: 09:02 Condition: FAIR - Clinical Impression Clinical Impression: Sepsis, Dehydration, Rhabdomyolysis Decision To Admit - Pt Status Changed To: Hospital Disposition Of: Inpatient - Admit Certification Admit to Inpatient:: After my assessment, the patient will require hospitalization for at least two midnights. This is because of the severity of symptoms shown, intensity of services needed, and/or the medical risk in this patient being treated as an outpatient. - InPatient: Physician Admission Certification: I certify that this patient requires 2 or more midnights of care for the following reason:: see notes - . Bed Request Type: Telemetry Admitting Physician: Bahman Urbina Patient Diagnosis: Rhabdomyolysis, Dehydration, Sepsis
[2018-05-21] MEDS ORDERED: Sodium Chloride 0.9% 2,000 ML IV ONE (08:59)
[2018-05-21] MEDS ORDERED: Vancomycin 1 gm/NS 200 ml 1 GM/200 ML BAG IVPB ONE ×2 (09:00)
--- NOTE | 2018-05-21 09:30 | RAD ---
Chest x-ray single frontal view History: Shortness of breath. Comparison: 07/25/2017 Findings: Patchy increased markings at the left lung base. Mild venous congestion. Tortuous aorta. Degenerative changes in the spine. Impression: Patchy increased markings at the left lung base. Mild venous congestion. Tortuous aorta.
--- NOTE | 2018-05-21 15:40 | CP.PCM.HP ---
Past Patient History - Infectious Disease Hx of Infectious Diseases: None - Past Medical History & Family History Past Medical History?: Yes - Past Social History Smoking Status: Never Smoked - CARDIAC Hx Hypercholesterolemia: Yes Hx Hypertension: Yes - PULMONARY Hx Pneumonia: Yes (Aspiration) - NEUROLOGICAL Hx Alzheimer's Disease: Yes Hx Dementia: Yes (w/ right sided paralysis) Hx Seizures: Yes - HEENT Hx HEENT Problems: Yes Hx Cataracts: Yes (Both Cataract Surgery) - RENAL Hx Chronic Kidney Disease: No - ENDOCRINE/METABOLIC Hx Endocrine Disorders: Yes Hx Diabetes Mellitus Type 2: Yes - HEMATOLOGICAL/ONCOLOGICAL Hx Blood Disorders: No - INTEGUMENTARY Hx Dermatological Problems: No - MUSCULOSKELETAL/RHEUMATOLOGICAL Hx Arthritis: Yes Hx Fractures: Yes (non displaced avulsion fracture of right talus) - GASTROINTESTINAL Hx Gastrointestinal Disorders: Yes Hx Gastroesophageal Reflux: Yes - GENITOURINARY/GYNECOLOGICAL Hx Genitourinary Disorders: Yes Hx Prostate Problems: Yes (BPH) - PSYCHIATRIC Hx Anxiety: Yes Hx Bipolar Disorder: Yes Hx Depression: Yes Hx Substance Use: No - SURGICAL HISTORY Hx Appendectomy: Yes - ANESTHESIA Hx Anesthesia: Yes Hx Anesthesia Reactions: No Hx Malignant Hyperthermia: No Meds Allergies/Adverse Reactions: Allergies Allergy/AdvReac Type Severity Reaction Status Date / Time No Known Allergies Allergy Verified 05/21/18 07:09 Physical Exam - Constitutional Appears: Well - Head Exam Head Exam: ATRAUMATIC, NORMAL INSPECTION, NORMOCEPHALIC - Eye Exam Eye Exam: EOMI, Normal appearance, PERRL Pupil Exam: NORMAL ACCOMODATION, PERRL - ENT Exam ENT Exam: Mucous Membranes Moist, Normal Exam - Neck Exam Neck exam: Positive for: Normal Inspection - Respiratory Exam Respiratory Exam: Decreased Breath Sounds - Cardiovascular Exam Cardiovascular Exam: REGULAR RHYTHM, +S1, +S2 - GI/Abdominal Exam GI & Abdominal Exam: Diminished Bowel Sounds, Soft - Rectal Exam Rectal Exam: Deferred Results - Vital Signs Recent Vital Signs: Last Vital Signs Temp 98.2 F 05/21/18 12:14 Pulse 97 H 05/21/18 14:40 Resp 18 05/21/18 14:40 BP 143/73 05/21/18 14:40 Pulse Ox 100 05/21/18 15:39 - Labs Result Diagrams: 05/21/18 07:21 05/21/18 07:21 Labs: Laboratory Results - last 24 hr 05/21/18 05/21/18 05/21/18 06:55 07:21 07:21 WBC 10.7 RBC 4.39 L Hgb 12.1 D Hct 36.2 MCV 82.4 D MCH 27.6 MCHC 33.4 RDW 13.6 Plt Count 135 MPV 11.5 Neut % (Auto) 84.0 H Lymph % (Auto) 11.9 L [place] % (Auto) 3.8 Eos % (Auto) 0.1 Baso % (Auto) 0.2 Neut # (Auto) 9.0 H Lymph # (Auto) 1.3 [place] # (Auto) 0.4 Eos # (Auto) 0.0 Baso # (Auto) 0.0 pO2 VBG pH VBG pCO2 VBG HCO3 VBG Total CO2 VBG O2 Sat (Calc) VBG Base Excess VBG Potassium Glucose Lactate Sodium 143 Potassium 4.7 Chloride 103 Carbon Dioxide 25 Anion Gap 19 BUN 45 H Creatinine 2.7 H Est GFR ( Amer) 29 Est GFR (Non-Af Amer) 24 POC Glucose (mg/dL) 261 H Random Glucose 224 H Lactic Acid Calcium 9.7 Phosphorus 3.4 Magnesium 2.1 Total Bilirubin 0.9 AST 104 H D ALT 39 Alkaline Phosphatase 92 Total Creatine Kinase 4718 H CK-MB (Mass) 7.75 H Troponin I 0.0480 NT-Pro-B Natriuret Pep 475 Total Protein 7.8 Albumin 4.3 Globulin 3.5 Albumin/Globulin Ratio 1.2 Venous Blood Potassium Urine Color Urine Clarity Urine pH Ur Specific [place] Urine Protein Urine Glucose (UA) Urine Ketones Urine Blood Urine Nitrate Urine Bilirubin Urine Urobilinogen Ur Leukocyte Esterase Urine WBC (Auto) Urine RBC (Auto) Ur Squamous Epith Cells Urine Bacteria Hyaline Casts Influenza Typ A,B (EIA) 05/21/18 05/21/18 05/21/18 07:31 07:52 09:17 WBC RBC Hgb Hct MCV MCH MCHC RDW Plt Count MPV Neut % (Auto) Lymph % (Auto) [place] % (Auto) Eos % (Auto) Baso % (Auto) Neut # (Auto) Lymph # (Auto) [place] # (Auto) Eos # (Auto) Baso # (Auto) pO2 34 VBG pH 7.37 VBG pCO2 43 VBG HCO3 23.5 VBG Total CO2 26.2 VBG O2 Sat (Calc) 62.6 VBG Base Excess -0.6 L VBG Potassium 4.7 Glucose 228 H Lactate 2.5 H Sodium 139.0 Potassium Chloride 104.0 Carbon Dioxide Anion Gap BUN Creatinine Est GFR ( Amer) Est GFR (Non-Af Amer) POC Glucose (mg/dL) Random Glucose Lactic Acid Calcium Phosphorus Magnesium Total Bilirubin AST ALT Alkaline Phosphatase Total Creatine Kinase CK-MB (Mass) Troponin I NT-Pro-B Natriuret Pep Total Protein Albumin Globulin Albumin/Globulin Ratio Venous Blood Potassium 4.7 Urine Color [place] Urine Clarity Hazy Urine pH 5.0 Ur Specific [place] 1.025 Urine Protein 1+ H Urine Glucose (UA) Normal Urine Ketones Negative Urine Blood 1+ H Urine Nitrate Negative Urine Bilirubin Negative Urine Urobilinogen Normal Ur Leukocyte Esterase Trace Urine WBC (Auto) 7 H Urine RBC (Auto) 3 Ur Squamous Epith Cells 1 Urine Bacteria Rare Hyaline Casts 3-5 H Influenza Typ A,B (EIA) Negative for flu a/b 05/21/18 09:46 WBC RBC Hgb Hct MCV MCH MCHC RDW Plt Count MPV Neut % (Auto) Lymph % (Auto) [place] % (Auto) Eos % (Auto) Baso % (Auto) Neut # (Auto) Lymph # (Auto) [place] # (Auto) Eos # (Auto) Baso # (Auto) pO2 VBG pH VBG pCO2 VBG HCO3 VBG Total CO2 VBG O2 Sat (Calc) VBG Base Excess VBG Potassium Glucose Lactate Sodium Potassium Chloride Carbon Dioxide Anion Gap BUN Creatinine Est GFR ( Amer) Est GFR (Non-Af Amer) POC Glucose (mg/dL) Random Glucose Lactic Acid 1.9 Calcium Phosphorus Magnesium Total Bilirubin AST ALT Alkaline Phosphatase Total Creatine Kinase CK-MB (Mass) Troponin I NT-Pro-B Natriuret Pep Total Protein Albumin Globulin Albumin/Globulin Ratio Venous Blood Potassium Urine Color Urine Clarity Urine pH Ur Specific [place] Urine Protein Urine Glucose (UA) Urine Ketones Urine Blood Urine Nitrate Urine Bilirubin Urine Urobilinogen Ur Leukocyte Esterase Urine WBC (Auto) Urine RBC (Auto) Ur Squamous Epith Cells Urine Bacteria Hyaline Casts Influenza Typ A,B (EIA)
--- NOTE | 2018-05-21 16:06 | PCM.URO ---
Urology Progress Note - Objective Lab Studies: Reviewed (thanks for gu consult) Lab Results Last 24 Hours: Laboratory Results - last 24 hr 05/21/18 05/21/18 05/21/18 06:55 07:21 07:21 WBC 10.7 RBC 4.39 L Hgb 12.1 D Hct 36.2 MCV 82.4 D MCH 27.6 MCHC 33.4 RDW 13.6 Plt Count 135 MPV 11.5 Neut % (Auto) 84.0 H Lymph % (Auto) 11.9 L [place] % (Auto) 3.8 Eos % (Auto) 0.1 Baso % (Auto) 0.2 Neut # (Auto) 9.0 H Lymph # (Auto) 1.3 [place] # (Auto) 0.4 Eos # (Auto) 0.0 Baso # (Auto) 0.0 pO2 VBG pH VBG pCO2 VBG HCO3 VBG Total CO2 VBG O2 Sat (Calc) VBG Base Excess VBG Potassium Glucose Lactate Sodium 143 Potassium 4.7 Chloride 103 Carbon Dioxide 25 Anion Gap 19 BUN 45 H Creatinine 2.7 H Est GFR ( Amer) 29 Est GFR (Non-Af Amer) 24 POC Glucose (mg/dL) 261 H Random Glucose 224 H Lactic Acid Calcium 9.7 Phosphorus 3.4 Magnesium 2.1 Total Bilirubin 0.9 AST 104 H D ALT 39 Alkaline Phosphatase 92 Total Creatine Kinase 4718 H CK-MB (Mass) 7.75 H Troponin I 0.0480 NT-Pro-B Natriuret Pep 475 Total Protein 7.8 Albumin 4.3 Globulin 3.5 Albumin/Globulin Ratio 1.2 Venous Blood Potassium Urine Color Urine Clarity Urine pH Ur Specific [place] Urine Protein Urine Glucose (UA) Urine Ketones Urine Blood Urine Nitrate Urine Bilirubin Urine Urobilinogen Ur Leukocyte Esterase Urine WBC (Auto) Urine RBC (Auto) Ur Squamous Epith Cells Urine Bacteria Hyaline Casts Influenza Typ A,B (EIA) 05/21/18 05/21/18 05/21/18 07:31 07:52 09:17 WBC RBC Hgb Hct MCV MCH MCHC RDW Plt Count MPV Neut % (Auto) Lymph % (Auto) [place] % (Auto) Eos % (Auto) Baso % (Auto) Neut # (Auto) Lymph # (Auto) [place] # (Auto) Eos # (Auto) Baso # (Auto) pO2 34 VBG pH 7.37 VBG pCO2 43 VBG HCO3 23.5 VBG Total CO2 26.2 VBG O2 Sat (Calc) 62.6 VBG Base Excess -0.6 L VBG Potassium 4.7 Glucose 228 H Lactate 2.5 H Sodium 139.0 Potassium Chloride 104.0 Carbon Dioxide Anion Gap BUN Creatinine Est GFR ( Amer) Est GFR (Non-Af Amer) POC Glucose (mg/dL) Random Glucose Lactic Acid Calcium Phosphorus Magnesium Total Bilirubin AST ALT Alkaline Phosphatase Total Creatine Kinase CK-MB (Mass) Troponin I NT-Pro-B Natriuret Pep Total Protein Albumin Globulin Albumin/Globulin Ratio Venous Blood Potassium 4.7 Urine Color [place] Urine Clarity Hazy Urine pH 5.0 Ur Specific [place] 1.025 Urine Protein 1+ H Urine Glucose (UA) Normal Urine Ketones Negative Urine Blood 1+ H Urine Nitrate Negative Urine Bilirubin Negative Urine Urobilinogen Normal Ur Leukocyte Esterase Trace Urine WBC (Auto) 7 H Urine RBC (Auto) 3 Ur Squamous Epith Cells 1 Urine Bacteria Rare Hyaline Casts 3-5 H Influenza Typ A,B (EIA) Negative for flu a/b 05/21/18 09:46 WBC RBC Hgb Hct MCV MCH MCHC RDW Plt Count MPV Neut % (Auto) Lymph % (Auto) [place] % (Auto) Eos % (Auto) Baso % (Auto) Neut # (Auto) Lymph # (Auto) [place] # (Auto) Eos # (Auto) Baso # (Auto) pO2 VBG pH VBG pCO2 VBG HCO3 VBG Total CO2 VBG O2 Sat (Calc) VBG Base Excess VBG Potassium Glucose Lactate Sodium Potassium Chloride Carbon Dioxide Anion Gap BUN Creatinine Est GFR ( Amer) Est GFR (Non-Af Amer) POC Glucose (mg/dL) Random Glucose Lactic Acid 1.9 Calcium Phosphorus Magnesium Total Bilirubin AST ALT Alkaline Phosphatase Total Creatine Kinase CK-MB (Mass) Troponin I NT-Pro-B Natriuret Pep Total Protein Albumin Globulin Albumin/Globulin Ratio Venous Blood Potassium Urine Color Urine Clarity Urine pH Ur Specific [place] Urine Protein Urine Glucose (UA) Urine Ketones Urine Blood Urine Nitrate Urine Bilirubin Urine Urobilinogen Ur Leukocyte Esterase Urine WBC (Auto) Urine RBC (Auto) Ur Squamous Epith Cells Urine Bacteria Hyaline Casts Influenza Typ A,B (EIA) Intake & Output: Intake & Output 05/20/18 05/21/18 05/21/18 18:59 06:59 18:59 Weight 150 lb Vital Signs: Vital Signs - 24 hr 05/21/18 05/21/18 05/21/18 06:50 07:39 07:53 Temperature 101.4 F H Pulse Rate 105 H 98 H 99 H Respiratory 26 H 18 18 Rate Blood Pressure 96/64 L 153/82 H 139/77 O2 Sat by Pulse 98 100 100 Oximetry 05/21/18 05/21/18 05/21/18 08:08 08:23 08:26 Temperature 98.7 F Pulse Rate 96 H 96 H 97 H Respiratory 18 18 14 Rate Blood Pressure 133/72 132/79 132/79 O2 Sat by Pulse 100 100 100 Oximetry 05/21/18 05/21/18 05/21/18 08:38 08:53 09:08 Temperature Pulse Rate 94 H 96 H 96 H Respiratory 18 18 18 Rate Blood Pressure 132/75 133/76 140/75 O2 Sat by Pulse 100 100 100 Oximetry 05/21/18 05/21/18 05/21/18 09:23 09:38 11:00 Temperature Pulse Rate 95 H 92 H 93 H Respiratory 18 18 18 Rate Blood Pressure 148/74 144/77 164/80 H O2 Sat by Pulse 100 100 100 Oximetry 05/21/18 05/21/18 05/21/18 11:06 12:10 12:14 Temperature 98.2 F Pulse Rate 91 H 87 Respiratory 18 18 Rate Blood Pressure 145/78 142/79 O2 Sat by Pulse 100 100 Oximetry 05/21/18 05/21/18 14:40 15:39 Temperature Pulse Rate 97 H Respiratory 18 Rate Blood Pressure 143/73 O2 Sat by Pulse 100 100 Oximetry
[2018-05-21] MEDS: Dextrose 5%/0.45% NS 1,000 ML IV SCH (20:15)
[2018-05-21] MEDS: Valproic Acid 250 mg/5 ml UD Cup PO SCH (23:06)
[2018-05-21] MEDS: levETIRAcetam 100 mg/ml (5ml) Oral Syringe PO SCH (23:07)
[2018-05-21] MEDS: (Novolin R) Insulin Human Regular 100 units/ml vial SC SCH (23:07)
[2018-05-21] MEDS: ROSUVASTATIN 5 MG PO SCH (23:13)
[2018-05-22] MEDS: Dextrose 5%/0.45% NS 1,000 ML IV SCH ×3 (05:30→18:34)
[2018-05-22] MEDS: Albuterol-Ipratrop 3 mg / 0.5 (3 ml) UD INH SCH ×4 (05:30→19:14)
[2018-05-22] MEDS ORDERED: Meropenem 500 MG in Sodium Chloride 0.9% 100 ML IVPB SCH (06:00)
[2018-05-22 06:57] LABS: MEAN CELL VOLUME 82.7 fL (80.0-94.0); MEAN CORPUSCULAR HEMOGLOBIN 27.1 pg (27.0-31.0); MEAN CORPUSCULAR HGB CONC 32.8 g/dL (33.0-37.0); MEAN PLATELET VOLUME 11.5 fL (7.2-11.7); RBC 3.32 Mil/uL (4.40-5.90); RED CELL DISTRIBUTION WIDTH 13.5 % (11.5-14.5); WHITE BLOOD COUNT 7.6 K/uL (4.8-10.8)
[2018-05-22 07:58] LABS: ALBUMIN 2.9 g/dL (3.5-5.0); ALT/SGPT 37 U/L (21-72); AST/SGOT 58 U/L (17-59); BLOOD UREA NITROGEN 23 mg/dL (9-20); CALCIUM 8.4 mg/dl (8.6-10.4); GFR AFRICAN-AMERICAN > 60; GFR NON-AFRICAN AMERICAN > 60
[2018-05-22] MEDS: (Novolin R) Insulin Human Regular 100 units/ml vial SC SCH ×4 (08:14→21:36)
[2018-05-22] MEDS ORDERED: LUBIPROSTONE 8 MCG PO SCH (10:00)
[2018-05-22] MEDS: levETIRAcetam 100 mg/ml (5ml) Oral Syringe PO SCH ×2 (10:43→18:35)
[2018-05-22] MEDS: Promethazine 6.25 MG/5 ML CUP PO SCH ×3 (10:43→18:39)
[2018-05-22] MEDS: Valproic Acid 250 mg/5 ml UD Cup PO SCH ×2 (10:43→18:35)
[2018-05-22] MEDS: Enoxaparin 40 mg Syringe SC SCH (10:44)
[2018-05-22] MEDS: Pantoprazole 40 mg Susp UD PO SCH (10:44)
--- NOTE | 2018-05-22 14:41 | CP.PCM.PN ---
Subjective - Date & Time of Evaluation Date of Evaluation: 05/22/18 Time of Evaluation: 10:20 - Subjective Subjective: clinically same Objective - Vital Signs/Intake and Output Vital Signs (last 24 hours): Temp Pulse Resp BP Pulse Ox 98.2 F 64 20 123/72 99 05/22/18 08:10 05/22/18 08:10 05/22/18 08:10 05/22/18 08:10 05/22/18 08:10 Intake and Output: 05/22/18 05/22/18 06:59 18:59 Intake Total 1100 Balance 1100 - Medications Medications: Current Medications Albuterol/Ipratropium (Duoneb 3 Mg/0.5 Mg (3 Ml) Ud) 3 ml INH RQ6 [facility] Last Admin: 05/22/18 13:19 Dose: 3 ml Aspirin (Ecotrin) 81 mg PO DAILY [facility] Last Admin: 05/22/18 10:44 Dose: 81 mg Enoxaparin Sodium (Lovenox) 40 mg SC DAILY [facility] Last Admin: 05/22/18 10:44 Dose: 40 mg Glipizide (Glucotrol) 10 mg PO BID [facility] Last Admin: 05/22/18 10:43 Dose: 10 mg Home Med (Lubiprostone [Amitiza]) 8 mcg PO DAILY [facility] Dextrose/Sodium Chloride (Dextrose 5%/0.45% Ns 1000 Ml) 1,000 mls @ 100 mls/hr IV .Q10H [facility] Last Admin: 05/22/18 05:30 Dose: 100 mls/hr Vancomycin HCl 1,250 mg/ (Sodium Chloride) 250 mls @ 166.6 mls/hr IVPB DAILY [facility] PRN Reason: Protocol Last Admin: 05/22/18 13:10 Dose: 166.6 mls/hr Meropenem 1 gm/ Sodium (Chloride) 100 mls @ 100 mls/hr IVPB Q8 [facility] PRN Reason: Protocol Insulin Human Regular (Novolin R) 1 unit SC ACHS [facility] PRN Reason: Protocol Last Admin: 05/22/18 12:29 Dose: Not Given Levetiracetam (Keppra) 750 mg PO BID [facility] Last Admin: 05/22/18 10:43 Dose: 750 mg Lisinopril (Zestril) 5 mg PO DAILY [facility] Last Admin: 05/22/18 10:43 Dose: 5 mg Pantoprazole Sodium (Protonix Susp) 40 mg PO DAILY [facility] Last Admin: 05/22/18 10:44 Dose: 40 mg Promethazine HCl (Phenergan Syrup) 6.25 mg PO TID [facility] Last Admin: 05/22/18 10:43 Dose: 6.25 mg Quetiapine Fumarate (Seroquel) 200 mg PO DAILY [facility] Last Admin: 05/22/18 10:44 Dose: 200 mg Quetiapine Fumarate (Seroquel) 200 mg PO HS [facility] Last Admin: 05/21/18 23:07 Dose: 200 mg Risperidone (Risperdal Tab) 2 mg PO DAILY [facility] Last Admin: 05/22/18 10:43 Dose: 2 mg Rosuvastatin Calcium (Crestor) 5 mg PO HS [facility] Last Admin: 05/21/18 23:13 Dose: 5 mg Tamsulosin HCl (Flomax) 0.4 mg PO DAILY [facility] Last Admin: 05/22/18 10:44 Dose: 0.4 mg Trazodone HCl (Desyrel) 50 mg PO DAILY [facility] Last Admin: 05/22/18 10:44 Dose: 50 mg Valproate Sodium (Depakene Oral Soln) 250 mg PO BID [facility] Last Admin: 05/22/18 10:43 Dose: 250 mg - Labs Labs: 05/22/18 06:51 05/22/18 06:51 - Constitutional Appears: Well - Head Exam Head Exam: ATRAUMATIC, NORMAL INSPECTION, NORMOCEPHALIC - Eye Exam Eye Exam: EOMI, Normal appearance, PERRL Pupil Exam: NORMAL ACCOMODATION, PERRL - ENT Exam ENT Exam: Mucous Membranes Moist, Normal Exam - Neck Exam Neck Exam: Full ROM, Normal Inspection. absent: Lymphadenopathy - Respiratory Exam Respiratory Exam: Decreased Breath Sounds - Cardiovascular Exam Cardiovascular Exam: REGULAR RHYTHM, +S1, +S2 - GI/Abdominal Exam GI & Abdominal Exam: Soft, Diminished Bowel Sounds - Rectal Exam Rectal Exam: Deferred Assessment and Plan - Assessment and Plan (Free Text) Plan: IV meropenem IV vancomycin The UTI Septic workup ID consult As ordered
[2018-05-22] MEDS: Meropenem 1 GM in Sodium Chloride 0.9% 100 ML IVPB SCH ×2 (16:02→22:41)
[2018-05-22] MEDS: ROSUVASTATIN 5 MG PO SCH (22:41)
[2018-05-23] MEDS: Albuterol-Ipratrop 3 mg / 0.5 (3 ml) UD INH SCH ×4 (01:19→19:38)
[2018-05-23] MEDS: Dextrose 5%/0.45% NS 1,000 ML IV SCH ×2 (02:15→17:14)
[2018-05-23] MEDS: Meropenem 1 GM in Sodium Chloride 0.9% 100 ML IVPB SCH ×3 (06:11→22:17)
[2018-05-23] MEDS: (Novolin R) Insulin Human Regular 100 units/ml vial SC SCH ×4 (08:18→22:46)
[2018-05-23] MEDS: levETIRAcetam 100 mg/ml (5ml) Oral Syringe PO SCH ×3 (11:15→18:39)
[2018-05-23] MEDS: Enoxaparin 40 mg Syringe SC SCH (11:16)
[2018-05-23] MEDS: Valproic Acid 250 mg/5 ml UD Cup PO SCH ×3 (11:16→19:00)
[2018-05-23] MEDS: Pantoprazole 40 mg Susp UD PO SCH (12:23)
[2018-05-23] MEDS: Promethazine 6.25 MG/5 ML CUP PO SCH ×3 (12:23→18:39)
--- NOTE | 2018-05-23 12:48 | CP.PCM.CON ---
History of Present Illness - History of Present Illness History of Present Illness: dictated Past Patient History - Infectious Disease Hx of Infectious Diseases: None - Past Medical History & Family History Past Medical History?: Yes - Past Social History Smoking Status: Former Smoker - CARDIAC Hx Hypercholesterolemia: Yes Hx Hypertension: Yes - PULMONARY Hx Pneumonia: Yes (Aspiration) - NEUROLOGICAL Hx Alzheimer's Disease: Yes Hx Dementia: Yes (w/ right sided paralysis) Hx Seizures: Yes - HEENT Hx HEENT Problems: Yes Hx Cataracts: Yes (Both Cataract Surgery) - RENAL Hx Chronic Kidney Disease: No - ENDOCRINE/METABOLIC Hx Endocrine Disorders: Yes Hx Diabetes Mellitus Type 2: Yes - HEMATOLOGICAL/ONCOLOGICAL Hx Blood Disorders: No - INTEGUMENTARY Hx Dermatological Problems: No - MUSCULOSKELETAL/RHEUMATOLOGICAL Hx Arthritis: Yes Hx Fractures: Yes (non displaced avulsion fracture of right talus) - GASTROINTESTINAL Hx Gastrointestinal Disorders: Yes Hx Gastroesophageal Reflux: Yes - GENITOURINARY/GYNECOLOGICAL Hx Genitourinary Disorders: Yes Hx Prostate Problems: Yes (BPH) - PSYCHIATRIC Hx Anxiety: Yes Hx Bipolar Disorder: Yes Hx Depression: Yes Hx Substance Use: No - SURGICAL HISTORY Hx Appendectomy: Yes - ANESTHESIA Hx Anesthesia: Yes Hx Anesthesia Reactions: No Hx Malignant Hyperthermia: No Meds Allergies/Adverse Reactions: Allergies Allergy/AdvReac Type Severity Reaction Status Date / Time No Known Allergies Allergy Verified 05/21/18 07:09 - Medications Medications: Current Medications Albuterol/Ipratropium (Duoneb 3 Mg/0.5 Mg (3 Ml) Ud) 3 ml INH RQ6 [facility] Last Admin: 05/23/18 07:32 Dose: 3 ml Aspirin (Ecotrin) 81 mg PO DAILY [facility] Last Admin: 05/23/18 12:22 Dose: Not Given Enoxaparin Sodium (Lovenox) 40 mg SC DAILY [facility] Last Admin: 05/23/18 11:16 Dose: 40 mg Glipizide (Glucotrol) 10 mg PO BID [facility] Last Admin: 05/23/18 12:20 Dose: Not Given Home Med (Lubiprostone [Amitiza]) 8 mcg PO DAILY [facility] Dextrose/Sodium Chloride (Dextrose 5%/0.45% Ns 1000 Ml) 1,000 mls @ 100 mls/hr IV .Q10H [facility] Last Admin: 05/23/18 02:15 Dose: Not Given Vancomycin HCl 1,250 mg/ (Sodium Chloride) 250 mls @ 166.6 mls/hr IVPB DAILY [facility] PRN Reason: Protocol Last Admin: 05/23/18 11:19 Dose: 166.6 mls/hr Meropenem 1 gm/ Sodium (Chloride) 100 mls @ 100 mls/hr IVPB Q8 [facility] PRN Reason: Protocol Last Admin: 05/23/18 06:11 Dose: 100 mls/hr Insulin Human Regular (Novolin R) 1 unit SC ACHS [facility] PRN Reason: Protocol Last Admin: 05/23/18 12:41 Dose: Not Given Levetiracetam (Keppra) 750 mg PO BID [facility] Last Admin: 05/23/18 12:22 Dose: Not Given Lisinopril (Zestril) 5 mg PO DAILY [facility] Last Admin: 05/23/18 12:24 Dose: Not Given Pantoprazole Sodium (Protonix Susp) 40 mg PO DAILY [facility] Last Admin: 05/23/18 12:23 Dose: Not Given Promethazine HCl (Phenergan Syrup) 6.25 mg PO TID [facility] Last Admin: 05/23/18 12:23 Dose: Not Given Quetiapine Fumarate (Seroquel) 200 mg PO DAILY [facility] Last Admin: 05/23/18 12:24 Dose: Not Given Quetiapine Fumarate (Seroquel) 200 mg PO HS [facility] Last Admin: 05/22/18 22:56 Dose: 200 mg Risperidone (Risperdal Tab) 2 mg PO DAILY [facility] Last Admin: 05/23/18 12:25 Dose: Not Given Rosuvastatin Calcium (Crestor) 5 mg PO [facility] Last Admin: 05/22/18 22:41 Dose: 5 mg Tamsulosin HCl (Flomax) 0.4 mg PO DAILY [facility] Last Admin: 05/23/18 12:23 Dose: Not Given Trazodone HCl (Desyrel) 50 mg PO DAILY [facility] Last Admin: 05/23/18 12:19 Dose: Not Given Valproate Sodium (Depakene Oral Soln) 250 mg PO BID [facility] Last Admin: 05/23/18 12:01 Dose: Not Given Results - Vital Signs Recent Vital Signs: Last Vital Signs Temp 99.9 F H 05/23/18 08:00 Pulse 72 05/23/18 11:22 Resp 20 05/23/18 08:00 BP 108/72 05/23/18 11:22 Pulse Ox 99 05/23/18 08:00 - Labs Result Diagrams: 05/22/18 06:51 05/22/18 06:51 Labs: Laboratory Results - last 24 hr 05/22/18 05/22/18 05/23/18 16:02 20:57 06:31 POC Glucose (mg/dL) 170 H 165 H 187 H 05/23/18 11:35 POC Glucose (mg/dL) 162 H
--- NOTE | 2018-05-23 13:56 | US ---
PROCEDURE: Ultrasound of the Bladder HISTORY: Retention COMPARISON: None available. TECHNIQUE: Sonographic evaluation of the bladder was performed. FINDINGS: Unremarkable without wall thickening or intraluminal debris. No calculus or gross mass lesion. No free fluid in pelvis. [place] catheter in place. Prevoid Volume: 18.4 cc. IMPRESSION: [place] catheter in place without significant prevoid urinary volume.
--- NOTE | 2018-05-23 16:50 | PCM.URO ---
Urology Progress Note - Objective Lab Studies: Reviewed (no gu change) Lab Results Last 24 Hours: Laboratory Results - last 24 hr 05/22/18 05/23/18 05/23/18 20:57 06:31 11:35 POC Glucose (mg/dL) 165 H 187 H 162 H Intake & Output: Intake & Output 05/22/18 05/23/18 05/23/18 18:59 06:59 18:59 Intake Total 800 1200 900 Output Total 1050 Balance 800 1200 -150 Intake: Intake, IV Amount 800 800 900 Right Forearm 800 800 900 Oral 400 Output: Urine 1050 Urine, Voided 950 Other: # Bowel Movements 0 0 Vital Signs: Vital Signs - 24 hr 05/22/18 05/22/18 05/22/18 17:30 23:27 23:35 Temperature 99.1 F Pulse Rate 96 H 100 H 112 H Respiratory 20 Rate Blood Pressure 108/74 O2 Sat by Pulse 93 L Oximetry 05/23/18 05/23/18 05/23/18 03:38 04:20 08:00 Temperature 99.7 F H 99.9 F H Pulse Rate 101 H 88 Respiratory 20 Rate Blood Pressure 122/66 O2 Sat by Pulse 99 Oximetry 05/23/18 05/23/18 05/23/18 08:15 11:22 15:05 Temperature 98.8 F Pulse Rate 87 72 95 H Respiratory 20 Rate Blood Pressure 108/72 99/67 L O2 Sat by Pulse 99 Oximetry
--- NOTE | 2018-05-23 16:51 | CP.PCM.PN ---
Subjective - Date & Time of Evaluation Date of Evaluation: 05/23/18 Time of Evaluation: 11:20 - Subjective Subjective: clinically same Objective - Vital Signs/Intake and Output Vital Signs (last 24 hours): Temp Pulse Resp BP Pulse Ox 98.8 F 95 H 20 99/67 L 99 05/23/18 15:05 05/23/18 15:05 05/23/18 15:05 05/23/18 15:05 05/23/18 15:05 Intake and Output: 05/23/18 05/23/18 06:59 18:59 Intake Total 1200 900 Output Total 1050 Balance 1200 -150 - Medications Medications: Current Medications Albuterol/Ipratropium (Duoneb 3 Mg/0.5 Mg (3 Ml) Ud) 3 ml INH RQ6 [facility] Last Admin: 05/23/18 13:38 Dose: 3 ml Aspirin (Ecotrin) 81 mg PO DAILY [facility] Last Admin: 05/23/18 12:22 Dose: Not Given Enoxaparin Sodium (Lovenox) 40 mg SC DAILY [facility] Last Admin: 05/23/18 11:16 Dose: 40 mg Glipizide (Glucotrol) 10 mg PO BID [facility] Last Admin: 05/23/18 12:20 Dose: Not Given Home Med (Lubiprostone [Amitiza]) 8 mcg PO DAILY [facility] Dextrose/Sodium Chloride (Dextrose 5%/0.45% Ns 1000 Ml) 1,000 mls @ 100 mls/hr IV .Q10H [facility] Last Admin: 05/23/18 02:15 Dose: Not Given Vancomycin HCl 1,250 mg/ (Sodium Chloride) 250 mls @ 166.6 mls/hr IVPB DAILY [facility] PRN Reason: Protocol Last Admin: 05/23/18 11:19 Dose: 166.6 mls/hr Meropenem 1 gm/ Sodium (Chloride) 100 mls @ 100 mls/hr IVPB Q8 [facility] PRN Reason: Protocol Last Admin: 05/23/18 14:04 Dose: 100 mls/hr Insulin Human Regular (Novolin R) 1 unit SC ACHS [facility] PRN Reason: Protocol Last Admin: 05/23/18 12:41 Dose: Not Given Levetiracetam (Keppra) 750 mg PO BID [facility] Last Admin: 05/23/18 12:22 Dose: Not Given Lisinopril (Zestril) 5 mg PO DAILY [facility] Last Admin: 05/23/18 12:24 Dose: Not Given Pantoprazole Sodium (Protonix Susp) 40 mg PO DAILY [facility] Last Admin: 05/23/18 12:23 Dose: Not Given Promethazine HCl (Phenergan Syrup) 6.25 mg PO TID [facility] Last Admin: 05/23/18 16:28 Dose: Not Given Quetiapine Fumarate (Seroquel) 200 mg PO DAILY [facility] Last Admin: 05/23/18 12:24 Dose: Not Given Quetiapine Fumarate (Seroquel) 200 mg PO HS [facility] Last Admin: 05/22/18 22:56 Dose: 200 mg Risperidone (Risperdal Tab) 2 mg PO DAILY [facility] Last Admin: 05/23/18 12:25 Dose: Not Given Rosuvastatin Calcium (Crestor) 5 mg PO [facility] Last Admin: 05/22/18 22:41 Dose: 5 mg Tamsulosin HCl (Flomax) 0.4 mg PO DAILY [facility] Last Admin: 05/23/18 12:23 Dose: Not Given Trazodone HCl (Desyrel) 50 mg PO DAILY [facility] Last Admin: 05/23/18 12:19 Dose: Not Given Valproate Sodium (Depakene Oral Soln) 250 mg PO BID [facility] Last Admin: 05/23/18 12:01 Dose: Not Given - Labs Labs: 05/22/18 06:51 05/22/18 06:51 - Constitutional Appears: Well - Head Exam Head Exam: ATRAUMATIC, NORMAL INSPECTION, NORMOCEPHALIC - Eye Exam Eye Exam: EOMI, Normal appearance, PERRL Pupil Exam: NORMAL ACCOMODATION, PERRL - ENT Exam ENT Exam: Mucous Membranes Moist, Normal Exam - Neck Exam Neck Exam: Full ROM, Normal Inspection. absent: Lymphadenopathy - Respiratory Exam Respiratory Exam: Decreased Breath Sounds - Cardiovascular Exam Cardiovascular Exam: REGULAR RHYTHM, +S1, +S2 - GI/Abdominal Exam GI & Abdominal Exam: Soft, Diminished Bowel Sounds - Rectal Exam Rectal Exam: Deferred Assessment and Plan - Assessment and Plan (Free Text) Plan: IV meropenem IV vancomycin Lisinopril insulin PPN Discussed with the family Discussed with ID Discussed with the cardiology
--- NOTE | 2018-05-23 21:16 | CARD ---
APPROVED REPORT EKG Measurement Heart [id number] <Conclusion> Sinus tachycardia Nonspecific T wave abnormality Abnormal ECG
[2018-05-23] MEDS: ROSUVASTATIN 5 MG PO SCH (22:46)
[2018-05-24] MEDS: Albuterol-Ipratrop 3 mg / 0.5 (3 ml) UD INH SCH ×3 (01:30→19:17)
--- NOTE | 2018-05-24 03:00 | CON ---
DATE: 05/23/2018 This consult was requested for this patient. HISTORY OF PRESENT ILLNESS: This patient brought in from home for evaluation of cough, fever and generalized weakness. The patient is not able to communicate and he apparently was discharged home from nursing the same day. He has history of CVA, dementia, bipolar disorder, diabetes mellitus, hypertension, hyperlipidemia, seizure disorder, and aspiration pneumonia. The patient is not tolerating anything orally. The nurse gave him thickener and he was not even able to swallow that. I think he probably will need a PEG it seems. The patient is not able to verbalize as he suffers from CVA. He has aphasia and I am asked to evaluate because he was having fevers. He came in with urinary retention. Right now, he has a [place] catheter. He is not allergic to any medicine. I am not able to get any review of system. So most of the history is taken from the chart. PAST MEDICAL HISTORY: Significant for Alzheimer's, anxiety, arthritis, bipolar disorder, CVA, dementia, depression, diabetes, fracture, nondisplaced avulsion fracture of right talus, hypercholesterolemia, hypertension, aspiration pneumonia, and seizures. FAMILY HISTORY: Noncontributory. SOCIAL HISTORY: Negative for smoking or drinking or any drug abuse. REVIEW OF SYSTEMS: Unable to obtain. MEDICATIONS: I find he is on DuoNeb. They cannot give any oral medicine as he is not able to take them. So these need to be changed to IV, especially his last medications I think he got yesterday and he is not able to swallow much. He is on vancomycin 1250 as his blood culture was positive and he is on meropenem every 8 hours. As he came in with urinary retention, now with the [place], he only has 50 mL of residual according to the nurse, so he is being monitored. PHYSICAL EXAMINATION: VITAL SIGNS: I find his temperature is still 99.7. He did spike 101.4 on 05/21/2018 and has been on antibiotics since. On examination, T-max is 99.9, pulse 90, blood pressure 122/66, respirations are 20. HEENT: Head is atraumatic, normocephalic. Pupils are reacting to light. He is not able to swallow much. He has a very dry tongue at this time. NECK: Supple. JVD is flat. LUNGS: Decreased breath sounds bilaterally. HEART: S1 and S2 is regular. No murmurs appreciated. ABDOMEN: Soft, nontender. No guarding, no rigidity present. He has right-sided hemiplegia. He has a [place] catheter at this time. EXTREMITIES: Left leg appears unremarkable. I have reviewed his review of system from the chart, which I want to put in my note. Cardiac luis, he has hypertension and hypercholesterolemia. Social history is negative. Pulmonary: He aspirates. Neurologically, he has Alzheimer's dementia and seizure disorder and he has history of cataract surgery. He is diabetic, endocrine problems. GI: He has GI reflux disease, intestinal disorder and disorders: BPH. He has anxiety, depression, bipolar, and history of appendicectomy in the past. I am not sure about the decubitus, but we will evaluate on a later date. LABORATORY DATA: Noted. Lab show white count is 7.6 from yesterday, hemoglobin 9, hematocrit 27.4, platelet count is 104, which is low and random level was less than 5. Serology was done. Influenza is negative. UA showed WBC 7, leukocytes trace, and the blood culture came out gram positive cocci and urine culture with multiple species. The results are pending. Final ID and sensitivity is pending. I had asked for an echo. Imp and Plan:So at this time, he has blood cultures, which are positive for GPCs , which may be related to urine as he had urinary retention or it is related to his aspiration pneumonia as he was in the [facility] and was just discharged. Hence, we have covered him with vancomycin as well as he did come with a high lactate level and retention, that was I was told. We will review the chart again and at this time I will cover with these antibiotics and wait for the further ID and sensitivity and follow urology evaluation and also the chest x-ray. Chest x-ray with increased markings at the left lung base, mild venous congestion. So, we will cover for aspiration because he is sat up, he is not able to swallow well. They could not give his medications today and he also came with rhabdomyolysis it seems, because his creatinine was up and it is decreased now. We will continue present treatment and we will follow. Jenna Fine MD Psychiatric # [id number] MTDD
--- NOTE | 2018-05-24 04:17 | PN ---
DATE: 05/23/2018 DAILY PROGRESS NOTE SUBJECTIVE: The patient is currently resting comfortably. Washing up. PHYSICAL EXAMINATION: VITAL SIGNS: Noted. IMAGING: Repeat bladder ultrasound is done. Post void residual is less than 25 mL. DIAGNOSIS: Voiding dysfunction with hematuria. PLAN: Likely, this hematuria is secondary to the attempted Nelson catheter insertion. Right now, he is emptying his bladder well. He has multiple medical issues going on. We are going to observe the patient, but no further intervention is planned at this point. Paulie Heath MD
--- NOTE | 2018-05-24 07:55 | PCM.URO ---
Urology Progress Note - Objective Lab Studies: Reviewed (no gu change see dictated notes//#[id number]) Lab Results Last 24 Hours: Laboratory Results - last 24 hr 05/23/18 05/23/18 05/23/18 06:31 11:35 17:10 POC Glucose (mg/dL) 187 H 162 H 211 H 05/24/18 06:28 POC Glucose (mg/dL) 203 H Intake & Output: Intake & Output 05/23/18 05/24/18 05/24/18 18:59 06:59 18:59 Intake Total 900 1100 Output Total 1050 800 Balance -150 300 Intake: Intake, IV Amount 900 900 Right Forearm 900 900 Oral 200 Output: Urine 1050 800 Urine, Voided 950 800 Other: # Bowel Movements 0 Vital Signs: Vital Signs - 24 hr 05/23/18 05/23/18 05/23/18 08:00 08:15 11:22 Temperature 99.9 F H Pulse Rate 88 87 72 Respiratory 20 Rate Blood Pressure 122/66 108/72 O2 Sat by Pulse 99 Oximetry 05/23/18 05/23/18 05/23/18 15:05 16:00 20:00 Temperature 98.8 F Pulse Rate 95 H 97 H 71 Respiratory 20 Rate Blood Pressure 99/67 L O2 Sat by Pulse 99 Oximetry 05/23/18 05/23/18 05/24/18 23:35 23:44 03:59 Temperature 97.9 F Pulse Rate 96 H 111 H 90 Respiratory 20 Rate Blood Pressure 121/72 O2 Sat by Pulse 97 Oximetry
--- NOTE | 2018-05-24 08:43 | CON ---
DATE: 05/21/2018 UROLOGY CONSULTATION REASON FOR CONSULTATION: Voiding dysfunction and retention. See below the chart. History is in the chart, not from the patient. He is unable to communicate well. See the chart for further details in that regard. We were consulted to see if we can insert the Nelson catheter. The ER tried but apparently they were not able to. See the separately dictated note but we are not able to . PAST MEDICAL/SURGICAL HISTORY: The patient of Dr. Omar Urbina, who lives in the [facility]. REVIEW OF SYSTEMS: As listed above, otherwise, noncontributory. PHYSICAL EXAMINATION: GENERAL: A well-nourished male, in no apparent distress. VITAL SIGNS: Within normal limits. ABDOMEN: Relatively soft. Difficult to evaluate for abdominal distention. We have bladder scan now that has about 300 mL. DIAGNOSES: Hematuria and possible voiding dysfunction. ASSESSMENT AND PLAN: We need to find out further details. Make the bladder get a little more distended, and then we could discuss the options. We are going to find out if he has any previous surgery particularly, transurethral resection of the prostate. So we will need to talk with some family members. The plan is as follows: Maintain current output. Then further plans will follow. We are going to follow the patient. ADDENDUM: Subsequently, see the dictated note where we tried to insert a Nelson catheter but was unsuccessful. The patient is now on the floor, and on the floor, the patient spontaneously passed the urine. He had an 800 mL prevoid and 200 mL postvoid. Plan for now is to just observe the patient and monitor him with the common catheter but not to insert a Nelson catheter. We will continue to monitor the patient closely. Paulie Heath MD
[2018-05-24] MEDS: Enoxaparin 40 mg Syringe SC SCH (10:36)
[2018-05-24] MEDS: Pantoprazole 40 mg Susp UD PO SCH (10:36)
[2018-05-24] MEDS: Valproic Acid 250 mg/5 ml UD Cup PO SCH ×2 (10:37→18:37)
[2018-05-24] MEDS: Promethazine 6.25 MG/5 ML CUP PO SCH ×3 (10:37→18:38)
[2018-05-24] MEDS: (Novolin R) Insulin Human Regular 100 units/ml vial SC SCH ×4 (10:37→21:34)
[2018-05-24] MEDS: levETIRAcetam 100 mg/ml (5ml) Oral Syringe PO SCH (10:38)
--- NOTE | 2018-05-24 10:42 | CON ---
DATE: 05/21/2018 UROLOGY CONSULTATION REASON FOR CONSULTATION: Voiding dysfunction. HISTORY OF PRESENT ILLNESS: As listed in the chart. Here, with multiple medical issues. Dehydration, particularly they tried inserting a Nelson. See my separately dictated note for the procedure. We also tried inserting a Nelson, and they were not successful, and there was an element of possible retention and Urology was consulted. PAST MEDICAL AND SURGICAL HISTORY: As listed in the chart. Patient of Dr. Mary Urbina who is in the long term. SOCIAL HISTORY: Essentially unremarkable. PHYSICAL EXAMINATION: GENERAL: A well-nourished male, in no apparent distress. VITAL SIGNS: Within normal limits. ABDOMEN: Difficult to tell secondary to body habitus. He has normal phallus without discharge. RECTAL: Rectal exam is deferred. LABORATORY DATA: See chart. DIAGNOSES: Voiding dysfunction and retention. We need to obtain further history from the patient and from the family. See the separately dictated note, as not able to insert a Nelson catheter. In the meantime, the plan is as follows: We are going to observe the patient. Follow and monitor Is and Os. We will try a catheter. In the meantime, we will make further plans to follow. ADDENDUM: See the separately dictated procedure note. I initially saw the patient at around 4 p.m. to 5 p.m. Since then, I have had a chance to speak with his daughter. He actually apparently had a transurethral resection of prostate about a year and a half to two years ago. He is not having any problem because of the multiple medical problems. He has not been back in the office, he actually had the procedure with Dr. Marissa Heath. Subsequently, he was voiding well. This is something different. ADDENDUM What we did is a bladder scan. The most recent bladder scan is about 200 mL. For now, we are not going to reinsert a Nelson catheter. We are going to observe the patient, see how he does clinically, and then go from there. Paulie Heath MD
[2018-05-24] MEDS: Dextrose 5%/0.45% NS 1,000 ML IV SCH (10:53)
--- NOTE | 2018-05-24 12:33 | PN ---
DATE: 05/24/2018 See many previously dictated notes; 05/21/2018 to 05/23/2018. The patient is currently resting comfortably and the abdomen is relatively soft distended. DIAGNOSES: Gross hematuria and previous urinary retention. PLAN: The patient seems to be voiding better now. For now, no further urology intervention. The plan as follow, we will continue to follow along. Paulie Heath MD
--- NOTE | 2018-05-24 14:36 | CP.PCM.PN ---
Subjective - Date & Time of Evaluation Date of Evaluation: 05/24/18 Time of Evaluation: 02:15 - Subjective Subjective: dictated Objective - Vital Signs/Intake and Output Vital Signs (last 24 hours): Temp Pulse Resp BP Pulse Ox 99.3 F 87 18 154/73 H 99 05/24/18 07:45 05/24/18 07:45 05/24/18 07:45 05/24/18 07:45 05/24/18 07:45 Intake and Output: 05/24/18 05/24/18 06:59 18:59 Intake Total 1100 Output Total 800 Balance 300 - Medications Medications: Current Medications Albuterol/Ipratropium (Duoneb 3 Mg/0.5 Mg (3 Ml) Ud) 3 ml INH RQ6 [facility] Last Admin: 05/24/18 07:05 Dose: 3 ml Aspirin (Ecotrin) 81 mg PO DAILY [facility] Last Admin: 05/24/18 10:36 Dose: 81 mg Enoxaparin Sodium (Lovenox) 40 mg SC DAILY [facility] Last Admin: 05/24/18 10:36 Dose: 40 mg Glipizide (Glucotrol) 10 mg PO BID [facility] Last Admin: 05/24/18 10:41 Dose: 10 mg Home Med (Lubiprostone [Amitiza]) 8 mcg PO DAILY [facility] Dextrose/Sodium Chloride (Dextrose 5%/0.45% Ns 1000 Ml) 1,000 mls @ 100 mls/hr IV .Q10H [facility] Last Admin: 05/24/18 10:53 Dose: 100 mls/hr Vancomycin HCl 1,250 mg/ (Sodium Chloride) 250 mls @ 166.6 mls/hr IVPB DAILY [facility] PRN Reason: Protocol Last Admin: 05/24/18 10:43 Dose: 166.6 mls/hr Meropenem 1 gm/ Sodium (Chloride) 100 mls @ 100 mls/hr IVPB Q8 [facility] PRN Reason: Protocol Last Admin: 05/23/18 22:17 Dose: 100 mls/hr Levetiracetam 750 mg/ Sodium (Chloride) 107.5 mls @ 420 mls/hr IVPB Q12H [facility] Insulin Human Regular (Novolin R) 0 unit SC ACHS [facility] PRN Reason: Protocol Lisinopril (Zestril) 5 mg PO DAILY [facility] Last Admin: 05/24/18 10:36 Dose: 5 mg Pantoprazole Sodium (Protonix Susp) 40 mg PO DAILY [facility] Last Admin: 05/24/18 10:36 Dose: 40 mg Promethazine HCl (Phenergan Syrup) 6.25 mg PO TID [facility] Last Admin: 05/24/18 10:37 Dose: 6.25 mg Quetiapine Fumarate (Seroquel) 200 mg PO DAILY [facility] Last Admin: 05/24/18 10:37 Dose: 200 mg Quetiapine Fumarate (Seroquel) 200 mg PO [facility] Last Admin: 05/23/18 23:00 Dose: 200 mg Risperidone (Risperdal Tab) 2 mg PO DAILY [facility] Last Admin: 05/24/18 10:36 Dose: 2 mg Rosuvastatin Calcium (Crestor) 5 mg PO HS [facility] Last Admin: 05/23/18 22:46 Dose: Not Given Tamsulosin HCl (Flomax) 0.4 mg PO DAILY [facility] Last Admin: 05/24/18 10:36 Dose: 0.4 mg Trazodone HCl (Desyrel) 50 mg PO DAILY [facility] Last Admin: 05/24/18 10:36 Dose: 50 mg Valproate Sodium (Depakene Oral Soln) 250 mg PO BID [facility] Last Admin: 05/24/18 10:37 Dose: 250 mg - Labs Labs: 05/22/18 06:51 05/22/18 06:51
[2018-05-24] MEDS: Meropenem 1 GM in Sodium Chloride 0.9% 100 ML IVPB SCH ×2 (14:47→21:32)
--- NOTE | 2018-05-24 19:23 | CP.PCM.PN ---
Subjective - Date & Time of Evaluation Date of Evaluation: 05/24/18 Time of Evaluation: 10:40 - Subjective Subjective: clinically same Objective - Vital Signs/Intake and Output Vital Signs (last 24 hours): Temp Pulse Resp BP Pulse Ox 99.0 F 114 H 20 105/68 94 L 05/24/18 15:07 05/24/18 18:00 05/24/18 15:07 05/24/18 15:07 05/24/18 15:07 Intake and Output: 05/24/18 05/25/18 18:59 06:59 Intake Total 1200 Output Total 700 Balance 500 - Medications Medications: Current Medications Albuterol/Ipratropium (Duoneb 3 Mg/0.5 Mg (3 Ml) Ud) [address] [facility] Last Admin: 05/24/18 19:17 Dose: 3 ml Aspirin (Ecotrin) [address] [facility] Last Admin: 05/24/18 10:36 Dose: 81 mg Enoxaparin Sodium (Lovenox) [address] [facility] Last Admin: 05/24/18 10:36 Dose: 40 mg Glipizide (Glucotrol) [address] [facility] Last Admin: 05/24/18 18:37 Dose: 10 mg Home Med (Lubiprostone [Amitiza]) [address] [facility] Dextrose/Sodium Chloride (Dextrose 5%/0.45% Ns 1000 Ml) 1,000 mls @ 100 mls/hr IV .Q10H [facility] Last Admin: 05/24/18 10:53 Dose: 100 mls/hr Vancomycin HCl 1,250 mg/ (Sodium Chloride) 250 mls @ 166.6 mls/hr IVPB DAILY [facility] PRN Reason: Protocol Last Admin: 05/24/18 10:43 Dose: 166.6 mls/hr Meropenem 1 gm/ Sodium (Chloride) 100 mls @ 100 mls/hr IVPB Q8 [facility] PRN Reason: Protocol Last Admin: 05/24/18 14:47 Dose: 100 mls/hr Levetiracetam 750 mg/ Sodium (Chloride) 107.5 mls @ 420 mls/hr IVPB Q12 [facility] Insulin Human Regular (Novolin R) 0 unit SC ACHS [facility] PRN Reason: Protocol Last Admin: 05/24/18 18:00 Dose: 1 unit Lisinopril (Zestril) [address] [facility] Last Admin: 05/24/18 10:36 Dose: 5 mg Pantoprazole Sodium (Protonix Susp) [address] [facility] Last Admin: 05/24/18 10:36 Dose: 40 mg Promethazine HCl (Phenergan Syrup) 6.[address] [facility] Last Admin: 05/24/18 18:38 Dose: 6.25 mg Quetiapine Fumarate (Seroquel) [address] [facility] Last Admin: 05/24/18 10:37 Dose: 200 mg Quetiapine Fumarate (Seroquel) [address] [facility] Last Admin: 05/23/18 23:00 Dose: 200 mg Risperidone (Risperdal Tab) [address] [facility] Last Admin: 05/24/18 10:36 Dose: 2 mg Rosuvastatin Calcium (Crestor) [address] [facility] Last Admin: 05/23/18 22:46 Dose: Not Given Tamsulosin HCl (Flomax) 0.[address] [facility] Last Admin: 05/24/18 10:36 Dose: 0.4 mg Trazodone HCl (Desyrel) [address] [facility] Last Admin: 05/24/18 10:36 Dose: 50 mg Valproate Sodium (Depakene Oral Soln) [address] [facility] Last Admin: 05/24/18 18:37 Dose: 250 mg - Labs Labs: 05/22/18 06:51 05/22/18 06:51 - Constitutional Appears: Well - Head Exam Head Exam: ATRAUMATIC, NORMAL INSPECTION, NORMOCEPHALIC - Eye Exam Eye Exam: EOMI, Normal appearance, PERRL Pupil Exam: NORMAL ACCOMODATION, PERRL - ENT Exam ENT Exam: Mucous Membranes Moist, Normal Exam - Neck Exam Neck Exam: Full ROM, Normal Inspection. absent: Lymphadenopathy - Respiratory Exam Respiratory Exam: Decreased Breath Sounds - Cardiovascular Exam Cardiovascular Exam: REGULAR RHYTHM, +S1, +S2 - GI/Abdominal Exam GI & Abdominal Exam: Soft, Diminished Bowel Sounds - Rectal Exam Rectal Exam: Deferred Assessment and Plan - Assessment and Plan (Free Text) Plan: Continue IV antibiotic discussed with ID PPN Encourage p.o. food Monitor the laboratories Status post pelvic ultrasound which revealed access catheter Monitor hemoglobin hematocrit DuoNeb As ordered Change it to IV Keppra 750 twice daily
[2018-05-24] MEDS: ROSUVASTATIN 5 MG PO SCH (21:32)
[2018-05-25] MEDS: Albuterol-Ipratrop 3 mg / 0.5 (3 ml) UD INH SCH ×3 (01:09→13:18)
--- NOTE | 2018-05-25 05:04 | CON ---
DATE: 05/24/2018 CARDIOLOGY CONSULTATION REASON FOR CONSULTATION: Abnormal EKG with questionable wide complex tachycardia on the monitor. History was obtained from the patient's daughter who is at the bedside. HISTORY OF PRESENT ILLNESS: The patient is a 62-year-old male who is a former smoker, has a history of hypertension, diabetes mellitus, chronic renal insufficiency, history of CVA with residual right hemiplegia and aphasia for the past 10 years that was taking care of at home by his and daughter until recently his daughter decided to keep him in [facility] for two weeks because she was going away, and there was nobody to take care of him at home. When he was sent back home, the daughter noticed that her father is not behaving in his normal way in terms of eating and sleeping. For that reason, he was admitted to the hospital. The patient had a low-grade fever and blood culture grew coagulase-negative staph. The monitor revealed what appeared to be wide complex tachycardia; however on further and close analysis, the rhythm strip was consistent with sinus, however, with significant artifacts mimicking ventricular tachycardia. According to the daughter, the patient has no prior cardiac history. A 12-lead EKG was done at the bedside, which reveals sinus tachycardia at rate of 101 with a PVC. SOCIAL HISTORY: The patient is a former smoker. He lived at home since his stroke at the age of 52. MEDICATIONS: Crestor 5 mg once a day, Depakene oral solution 250 mg twice a day, Desyrel 50 mg once a day, aspirin 81 mg once a day, Flomax 0.4 mg once a day, glipizide 10 mg twice a day, Lovenox 40 mg subcutaneous once a day, meropenem 1 gm intravenously every 8 hours, Seroquel 200 mg once a day, vancomycin 1.25 gm intravenously daily, Zestril 5 mg once a day. REVIEW OF SYSTEMS: According to the daughter, the patient started to choke on 05/22/2018 and for the past one year, he is on pureed diet. No vomiting or diarrhea. No hematuria. PHYSICAL EXAMINATION: GENERAL: The patient is a middle-aged male who does not appear to be in acute distress. VITAL SIGNS: Blood pressure 139/72, heart rate 83, temperature 98, respirations 20. HEENT: Pale conjunctivae. CHEST: Clear. HEART: S1, S2 are regular. ABDOMEN: Soft. EXTREMITIES: No edema. NEURO: Right hemiparesis with expressive aphasia. LABORATORY DATA: Hemoglobin and hematocrit on 05/22/2018 are 9 and 27.4, white count 7.6, platelet count 101,000. SMA-7 on 05/21/2018: Sodium 143, potassium 4.7, chloride 103, CO2 of 25, glucose 224, BUN 45, creatinine 2.7. ProBNP is within normal limit. Troponin 0.048. EKG done at the bedside today reveals sinus tachycardia at the rate of 101 and PVC was noted. Pelvic ultrasound: [place] catheter in place without significant pre void urinary volume. Chest x-ray was unremarkable. ASSESSMENT: 1. Abnormal strip. The apparent and misleading wide complexes do not reflect cardiac impulses, but rather muscular impulses. The patient may have had a seizure activity at the time of monitor recording or with shivering. 2. History of cerebrovascular accident with residual right hemiparesis and expressive aphasia. 3. Staphylococcus coagulase-negative bacteremia. 4. Mild thrombocytopenia. 5. Uncontrolled diabetes mellitus. 6. Chronic renal insufficiency. 7. Systemic hypertension. RECOMMENDATIONS: Continue current Crestor 5 mg once a day, aspirin 81 mg once a day, glipizide 10 mg twice a day, Lovenox 40 mg subcutaneous once a day, IV meropenem at 1 gm every 8 hours, vancomycin at 1.25 gm intravenously daily, Zestril 5 mg once a day. We will review the echocardiographic study performed today. Nathan Sexton MD
[2018-05-25] MEDS: Meropenem 1 GM in Sodium Chloride 0.9% 100 ML IVPB SCH ×3 (05:19→21:33)
[2018-05-25 08:18] LABS: BASO % 0.5 % (0.0-2.0); EOS # 0.2 K/uL (0.0-0.7); EOS % 2.9 % (0.0-4.0); HEMOGLOBIN 10.3 g/dL (12.0-18.0); LYMPH # 1.2 K/uL (1.0-4.3); LYMPH % 18.1 % (20.0-40.0); MEAN CELL VOLUME 81.7 fL (80.0-94.0); MEAN CORPUSCULAR HEMOGLOBIN 27.4 pg (27.0-31.0); MEAN CORPUSCULAR HGB CONC 33.6 g/dL (33.0-37.0); MEAN PLATELET VOLUME 10.7 fL (7.2-11.7); MONO # 0.5 K/uL (0.0-0.8); MONO % 8.2 % (0.0-10.0); NEUT # 4.7 K/uL (1.8-7.0); NEUT % 70.3 % (50.0-75.0); NRBC % 0.1 % (0.0-2.0); RBC 3.77 Mil/uL (4.40-5.90); RED CELL DISTRIBUTION WIDTH 13.6 % (11.5-14.5); WHITE BLOOD COUNT 6.7 K/uL (4.8-10.8)
[2018-05-25 08:37] LABS: ALB/GLOB RATIO 1.1 (1.0-2.1); ALBUMIN 3.2 g/dL (3.5-5.0); ALT/SGPT 63 U/L (21-72); AST/SGOT 37 U/L (17-59); BLOOD UREA NITROGEN 11 mg/dL (9-20); CALCIUM 8.8 mg/dl (8.6-10.4); GFR AFRICAN-AMERICAN > 60; GFR NON-AFRICAN AMERICAN > 60
[2018-05-25] MEDS: (Novolin R) Insulin Human Regular 100 units/ml vial SC SCH ×5 (11:01→21:46)
[2018-05-25] MEDS: Enoxaparin 40 mg Syringe SC SCH (11:02)
[2018-05-25] MEDS: Pantoprazole 40 mg Susp UD PO SCH ×2 (11:02→12:29)
[2018-05-25] MEDS: Promethazine 6.25 MG/5 ML CUP PO SCH ×3 (11:02→18:47)
[2018-05-25] MEDS: Valproic Acid 250 mg/5 ml UD Cup PO SCH ×3 (11:05→18:48)
[2018-05-25] MEDS ORDERED: Dextrose 5%/0.45% NS 1,000 ML IV SCH (13:00)
[2018-05-25] MEDS: Fat Emulsion 20% IV 500 ML IV SCH (17:27)
[2018-05-25] MEDS ORDERED: PPN#1 IV ONE (18:00)
--- NOTE | 2018-05-25 20:39 | CP.PCM.PN ---
Subjective - Date & Time of Evaluation Date of Evaluation: 05/25/18 Time of Evaluation: 10:00 - Subjective Subjective: clinically same Objective - Vital Signs/Intake and Output Vital Signs (last 24 hours): Temp Pulse Resp BP Pulse Ox 98.0 F 76 20 128/72 99 05/25/18 10:11 05/25/18 10:11 05/25/18 10:11 05/25/18 10:11 05/25/18 10:11 Intake and Output: 05/25/18 05/26/18 18:59 06:59 Intake Total 320 Balance 320 - Medications Medications: Current Medications Albuterol/Ipratropium (Duoneb 3 Mg/0.5 Mg (3 Ml) Ud) 3 ml INH RQ6 [facility] Last Admin: 05/25/18 13:18 Dose: 3 ml Aspirin (Ecotrin) 81 mg PO DAILY [facility] Last Admin: 05/25/18 15:29 Dose: Not Given Enoxaparin Sodium (Lovenox) 40 mg SC DAILY [facility] Last Admin: 05/25/18 11:02 Dose: 40 mg Glipizide (Glucotrol) 10 mg PO BID [facility] Last Admin: 05/25/18 18:47 Dose: 10 mg Home Med (Lubiprostone [Amitiza]) 8 mcg PO DAILY [facility] Vancomycin HCl 1,250 mg/ (Sodium Chloride) 250 mls @ 166.6 mls/hr IVPB DAILY [facility] PRN Reason: Protocol Last Admin: 05/25/18 10:56 Dose: 166.6 mls/hr Meropenem 1 gm/ Sodium (Chloride) 100 mls @ 100 mls/hr IVPB Q8 [facility] PRN Reason: Protocol Last Admin: 05/25/18 14:33 Dose: 100 mls/hr Levetiracetam 750 mg/ Sodium (Chloride) 107.5 mls @ 420 mls/hr IVPB Q12 [facility] Last Admin: 05/25/18 10:30 Dose: 420 mls/hr Chromium/Copper/Manganese/Zinc 1 ml/ Multivitamins/Vitamin C 10 ml/ Amino Acids 1,011 mls @ 42 mls/hr IV .Q24H ONE Stop: 05/26/18 17:59 Last Admin: 05/25/18 17:26 Dose: 42 mls/hr Fat Emulsion Intravenous (Intralipid 20%) 500 mls @ 49 mls/hr IV TuThSa [facility] Last Admin: 05/25/18 17:27 Dose: 49 mls/hr Dextrose/Sodium Chloride (Dextrose 5%/0.45% Ns 1000 Ml) 1,000 mls @ 40 mls/hr IV .Q24H [facility] Stop: 05/26/18 12:59 Last Admin: 05/25/18 13:01 Dose: Not Given Insulin Human Regular (Novolin R) 0 unit SC [facility] PRN Reason: Protocol Last Admin: 05/25/18 18:52 Dose: 1 unit Lisinopril (Zestril) 5 mg PO DAILY [facility] Last Admin: 05/25/18 12:29 Dose: Not Given Pantoprazole Sodium (Protonix Susp) 40 mg PO DAILY [facility] Last Admin: 05/25/18 12:29 Dose: Not Given Promethazine HCl (Phenergan Syrup) 6.25 mg PO TID [facility] Last Admin: 05/25/18 18:47 Dose: 6.25 mg Quetiapine Fumarate (Seroquel) 200 mg PO DAILY [facility] Last Admin: 05/25/18 12:29 Dose: Not Given Quetiapine Fumarate (Seroquel) 200 mg PO HS [facility] Last Admin: 05/24/18 21:32 Dose: 200 mg Risperidone (Risperdal Tab) 2 mg PO DAILY [facility] Last Admin: 05/25/18 12:29 Dose: Not Given Rosuvastatin Calcium (Crestor) 5 mg PO HS [facility] Last Admin: 05/24/18 21:32 Dose: 5 mg Tamsulosin HCl (Flomax) 0.4 mg PO DAILY [facility] Last Admin: 05/25/18 11:02 Dose: 0.4 mg Trazodone HCl (Desyrel) 50 mg PO DAILY [facility] Last Admin: 05/25/18 11:22 Dose: Not Given Valproate Sodium (Depakene Oral Soln) 250 mg PO BID [facility] Last Admin: 05/25/18 18:48 Dose: 250 mg - Labs Labs: 05/25/18 08:06 05/25/18 08:06 - Constitutional Appears: Well - Head Exam Head Exam: ATRAUMATIC, NORMAL INSPECTION, NORMOCEPHALIC - Eye Exam Eye Exam: EOMI, Normal appearance, PERRL Pupil Exam: NORMAL ACCOMODATION, PERRL - ENT Exam ENT Exam: Mucous Membranes Moist, Normal Exam - Neck Exam Neck Exam: Full ROM, Normal Inspection. absent: Lymphadenopathy - Respiratory Exam Respiratory Exam: Decreased Breath Sounds - Cardiovascular Exam Cardiovascular Exam: REGULAR RHYTHM, +S1, +S2 - GI/Abdominal Exam GI & Abdominal Exam: Soft, Diminished Bowel Sounds - Rectal Exam Rectal Exam: Deferred Assessment and Plan - Assessment and Plan (Free Text) Plan: I refusing the medication explained that patient is medications Encourage p.o. feeding Patient is on TPN Continue multiple medications Fingersticks Vancomycin Follow-up with ID Follow-up with the urologist Septic workup So far no growth Pelvic ultrasound is post
[2018-05-25] MEDS: ROSUVASTATIN 5 MG PO SCH (21:40)
--- NOTE | 2018-05-25 22:16 | PN ---
DATE: 05/25/2018 SUBJECTIVE: The patient has no reported ventricular tachycardia on the monitor. The patient's is at the bedside. According to the , the patient has no cardiac history. The patient does have a history of seizure activity which could be contributed to the secured entrance monitor recording mimicking wide complex tachycardia. OBJECTIVE: VITAL SIGNS: Blood pressure 128/72, heart rate 76, temperature 98, and respirations 20. HEENT: Pale conjunctivae. CHEST: Clear. HEART: Heart sounds regular. EXTREMITIES: No edema. NEUROLOGIC: Right hemiparesis with expressive aphasia. LABORATORY DATA: Today's SMA-7 is within normal limits except for glucose of 106. Today's hemoglobin and hematocrit 10.3 and 30.8, white count 6.7, and platelet count 117,000, slight improvement compared to yesterday. ASSESSMENT: 1. Abnormal EKG, sinus rhythm with occasional premature ventricular contractions; however, other telemetry findings are artifacts and possibly related to the patient's seizure activity. 2. History of cerebrovascular accident with residual right hemiparesis with expressive aphasia. 3. Staphylococcus coagulase-negative bacteremia. 4. Anemia. 5. Mild thrombocytopenia. RECOMMENDATIONS: Continue current Crestor at 5 mg once a day, Depakene oral solution 250 mg twice a day, aspirin 81 mg once a day, Flomax 0.4 mg once a day, glipizide 10 mg twice a day, Zestril 5 mg once a day, vancomycin at 1.25 g intravenously daily, and Seroquel 200 mg once a day. Awaiting official echo report. Nathan Sexton MD
[2018-05-26] MEDS: Albuterol-Ipratrop 3 mg / 0.5 (3 ml) UD INH SCH ×5 (01:52→20:38)
[2018-05-26] MEDS: Meropenem 1 GM in Sodium Chloride 0.9% 100 ML IVPB SCH ×3 (05:34→21:40)
[2018-05-26] MEDS: (Novolin R) Insulin Human Regular 100 units/ml vial SC SCH ×3 (08:17→19:21)
[2018-05-26] MEDS: Pantoprazole 40 mg Susp UD PO SCH ×2 (10:54→11:05)
[2018-05-26] MEDS: Promethazine 6.25 MG/5 ML CUP PO SCH ×4 (10:54→19:07)
[2018-05-26] MEDS: Valproic Acid 250 mg/5 ml UD Cup PO SCH ×3 (10:54→19:08)
[2018-05-26] MEDS: Enoxaparin 40 mg Syringe SC SCH (10:54)
--- NOTE | 2018-05-26 13:53 | CP.PCM.PN ---
Subjective - Date & Time of Evaluation Date of Evaluation: 05/26/18 Time of Evaluation: 01:45 - Subjective Subjective: dictated Objective - Vital Signs/Intake and Output Vital Signs (last 24 hours): Temp Pulse Resp BP Pulse Ox 98.0 F 93 H 18 127/71 97 05/26/18 07:00 05/26/18 07:00 05/26/18 07:00 05/26/18 07:00 05/26/18 07:00 Intake and Output: 05/26/18 05/26/18 06:59 18:59 Intake Total 814 Balance 814 - Medications Medications: Current Medications Albuterol/Ipratropium (Duoneb 3 Mg/0.5 Mg (3 Ml) Ud) 3 ml INH RQ6 [facility] Last Admin: 05/26/18 13:27 Dose: 3 ml Aspirin (Aspirin Chewable) 81 mg PO DAILY [facility] Last Admin: 05/26/18 11:05 Dose: Not Given Enoxaparin Sodium (Lovenox) 40 mg SC DAILY [facility] Last Admin: 05/26/18 10:54 Dose: 40 mg Glipizide (Glucotrol) 10 mg PO BID [facility] Last Admin: 05/26/18 11:05 Dose: Not Given Vancomycin HCl 1,250 mg/ (Sodium Chloride) 250 mls @ 166.6 mls/hr IVPB DAILY [facility] PRN Reason: Protocol Last Admin: 05/26/18 10:53 Dose: 166.6 mls/hr Meropenem 1 gm/ Sodium (Chloride) 100 mls @ 100 mls/hr IVPB Q8 [facility] PRN Reason: Protocol Last Admin: 05/26/18 13:35 Dose: 100 mls/hr Levetiracetam 750 mg/ Sodium (Chloride) 107.5 mls @ 420 mls/hr IVPB Q12 [facility] Last Admin: 05/26/18 10:53 Dose: 420 mls/hr Chromium/Copper/Manganese/Zinc 1 ml/ Multivitamins/Vitamin C 10 ml/ Amino Acids 1,011 mls @ 42 mls/hr IV .Q24H ONE Stop: 05/26/18 17:59 Last Admin: 05/25/18 17:26 Dose: 42 mls/hr Fat Emulsion Intravenous (Intralipid 20%) 500 mls @ 49 mls/hr IV TuThSa [facility] Last Admin: 05/25/18 17:27 Dose: 49 mls/hr Chromium/Copper/Manganese/Zinc (1 ml/ Amino Acids) 1,001 mls @ 42 mls/hr IV .[id number] ONE Stop: 05/27/18 17:49 Insulin Human Regular (Novolin R) 0 unit SC [facility] PRN Reason: Protocol Last Admin: 05/26/18 12:06 Dose: 2 unit Lisinopril (Zestril) 5 mg PO DAILY [facility] Last Admin: 05/26/18 11:05 Dose: Not Given Pantoprazole Sodium (Protonix Susp) 40 mg PO DAILY [facility] Last Admin: 05/26/18 11:05 Dose: Not Given Promethazine HCl (Phenergan Syrup) 6.25 mg PO TID [facility] Last Admin: 05/26/18 13:35 Dose: 6.25 mg Quetiapine Fumarate (Seroquel) 200 mg PO DAILY [facility] Last Admin: 05/26/18 11:05 Dose: Not Given Quetiapine Fumarate (Seroquel) 200 mg PO HS [facility] Last Admin: 05/25/18 21:39 Dose: 200 mg Risperidone (Risperdal Tab) 2 mg PO DAILY [facility] Last Admin: 05/26/18 11:05 Dose: Not Given Rosuvastatin Calcium (Crestor) 5 mg PO [facility] Last Admin: 05/25/18 21:40 Dose: 5 mg Silver Sulfadiazine (Silvadene 1% 20 Gm) 1 ea TOP BID [facility] Tamsulosin HCl (Flomax) 0.4 mg PO DAILY [facility] Last Admin: 05/26/18 11:04 Dose: Not Given Trazodone HCl (Desyrel) 50 mg PO DAILY [facility] Last Admin: 05/26/18 10:54 Dose: 50 mg Valproate Sodium (Depakene Oral Soln) 250 mg PO BID [facility] Last Admin: 05/26/18 11:06 Dose: Not Given - Labs Labs: 05/25/18 08:06 05/25/18 08:06
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
[2018-05-26] MEDS ORDERED: PPN#2 IV ONE (18:00)
--- NOTE | 2018-05-26 19:06 | PN ---
DATE: 05/26/2018 SUBJECTIVE: The patient is awake and alert. His daughter is at the bedside. He is not able to verbalize, but he is quite awake. No respiratory distress. Daughter is concerned. I spoke to her. Blood cultures, staph appears to be probably contaminant. Repeat cultures negative. We have continued IV antibiotics to cover for urine and lungs as he has had aspiration and left lung infiltrate was there. PHYSICAL EXAMINATION: GENERAL: He is aphasic. VITAL SIGNS: Pulse rate is 93, blood pressure 127/71, respirations are 18. HEENT: Head is atraumatic, normocephalic. NECK: Supple. LUNGS: Clear at this time. Decreased breath sounds bilaterally. HEART: S1 and S2 regular. ABDOMEN: Soft, nontender. EXTREMITIES: No edema, clubbing, or cyanosis. His [place] catheter has been discontinued. LABORATORY DATA: Labs from yesterday were unremarkable. His sugar is 246. Blood cultures were repeated, and urine culture came out also less than 10,000. He is not retaining anymore urine that I know of, and I would just repeat the chest x-ray again tomorrow. Repeat the labs, and if he is stable, he is back to being fed on _puree diet____. We will follow the x-ray and probably get him off the IV antibiotics, and also I am waiting for the echo report. Echo report is pending at this time. IMPRESSION: The patient came in with urinary retention. He has aspiration pneumonia, coagulase-negative staphylococcus bacteremia and he has right hemiplegia from the old cerebrovascular accident. Jenna Fine MD STEPHANIE
[2018-05-26] MEDS: Silver Sulfadiazine 1% Cream (20 gm) TOP SCH (19:07)
--- NOTE | 2018-05-26 20:40 | PN ---
DATE: 05/26/2018 SUBJECTIVE: The patient has no reported wide complex tachycardia and no witnessed seizure. No reported hypotension. PHYSICAL EXAMINATION: VITAL SIGNS: Blood pressure 127/71, heart rate 93, temperature 98, respirations 18. HEENT: Pale conjunctivae. CHEST: Clear. HEART: Heart sounds regular. EXTREMITIES: Show no edema. LABORATORY DATA: No labs for today. ASSESSMENT: 1. History of cerebrovascular accident with residual right hemiparesis and expressive aphasia. 2. abnormal risk monitoring due to either patient shivering or underlying seizures. 3. Uncontrolled diabetes mellitus. 4. Anemia. 5. Thrombocytopenia. RECOMMENDATIONS: Continue aspirin 81 mg once a day, multivitamin infusion, Crestor at 5 mg once a day, subcutaneous Lovenox 40 mg once a day, Glucotrol 80 mg twice a day, Seroquel 200 mg daily. Nathan Sexton MD
[2018-05-26] MEDS: ROSUVASTATIN 5 MG PO SCH (22:56)
[2018-05-27] MEDS: Albuterol-Ipratrop 3 mg / 0.5 (3 ml) UD INH SCH ×4 (02:37→20:21)
[2018-05-27] MEDS: Meropenem 1 GM in Sodium Chloride 0.9% 100 ML IVPB SCH ×3 (05:57→22:29)
--- NOTE | 2018-05-27 07:23 | OP ---
PROCEDURE DATE: 05/21/2018 UROLOGY PROCEDURE NOTE PROCEDURE: Insertion of Nelson catheter. Under sterile technique, we prepared the patient. Apparently, he had a Nelson catheter inserted through the ER. It was not draining well. After doing this procedure, I believe that the patient has a bladder neck contracture. Under sterile technique, we tried attempting to insert Nelson catheters. We used a Coude tip. We tried what was available on the cart, which is a 14-Romansh and a 20-Romansh Coude tip. We also tried the regular 16-Romansh gently but no urine came out. We did not want to do any further risk of injury. We did not deflate the balloon. The previous catheter that was there did have the balloon likely inflated, but this balloon was not inflated. We cannot get in. At this point, I am going to observe the patient still I find out more details and then we will make further plans. ADDENDUM This is a urology bedside procedure note, insertion of Nelson catheter (attempted insertion of Nelson catheter). NOTE: Subsequently, we found that the patient actually had a previous TURP and more likely this is a bladder neck contracture. Thank you for the urology consult. Paulie Heath MD
--- NOTE | 2018-05-27 07:46 | PN ---
DATE: 05/24/2018 SUBJECTIVE: The patient is and he has right hemiplegia. He has his blood cultures, it came out positive for coagulase-negative staph. Both sets are positive but he has not even a Nelson. He has a [place] catheter at this time, and there are no other devices. PHYSICAL EXAMINATION: VITAL SIGNS: His T-max is 99.3, pulse 87, blood pressure 154/73, 99.9 over the night and remains tachycardic, but now his heart rate is 87, blood pressure is 154/73, pulse is 87, respirations are 18, and saturation remains 99. HEENT: Head is atraumatic, normocephalic, but he is not eating well. I am not sure if he can swallow well. May be he is very weak. NECK: Supple. LUNGS: Coarse breath sounds. HEART: S1 and S2 regular. ABDOMEN: Soft, nontender. No guarding. No rigidity present. He has a [place] catheter. EXTREMITIES: Have no edema. LABORATORY DATA: Noted. Labs show white count is 7.6, with platelets of 101, and we will repeat the labs tomorrow as blood cultures came out to be coagulase-negative Staph in two sets which is MRSA. Urine has less than 10,000 multiple species so urine culture was negative. His chest x-ray shows patchy increased markings in the left lung base, mild venous congestion, tortuous aorta. His two sets are positive. I am waiting for the echo report; however, I think contaminant. He does have a [place] catheter at this time. ASSESSMENT: He has had urinary retention. He has history of cerebrovascular accident with right hemiplegia. Suggest at this time to continue present antibiotic. Repeat labs tomorrow. Also repeat the blood cultures also and we will follow. Also to check the echo report aspiration, has history of pneumonia before, infiltrate in the left base . Jenna Fine MD
[2018-05-27] MEDS: (Novolin R) Insulin Human Regular 100 units/ml vial SC SCH ×4 (07:53→21:37)
[2018-05-27 08:18] LABS: BASO % 0.6 % (0.0-2.0); EOS # 0.3 K/uL (0.0-0.7); EOS % 3.9 % (0.0-4.0); HEMOGLOBIN 9.9 g/dL (12.0-18.0); LYMPH % 30.2 % (20.0-40.0); MEAN CELL VOLUME 82.2 fL (80.0-94.0); MEAN CORPUSCULAR HEMOGLOBIN 27.1 pg (27.0-31.0); MEAN PLATELET VOLUME 10.7 fL (7.2-11.7); MONO # 0.6 K/uL (0.0-0.8); MONO % 8.6 % (0.0-10.0); NEUT # 3.8 K/uL (1.8-7.0); NEUT % 56.7 % (50.0-75.0); NRBC % 0.1 % (0.0-2.0); RBC 3.66 Mil/uL (4.40-5.90); RED CELL DISTRIBUTION WIDTH 13.8 % (11.5-14.5); WHITE BLOOD COUNT 6.6 K/uL (4.8-10.8)
[2018-05-27 08:37] LABS: ALB/GLOB RATIO 1.1 (1.0-2.1); ALBUMIN 3.4 g/dL (3.5-5.0); ALT/SGPT 64 U/L (21-72); AST/SGOT 30 U/L (17-59); BLOOD UREA NITROGEN 17 mg/dL (9-20); CALCIUM 9.3 mg/dl (8.6-10.4); GFR AFRICAN-AMERICAN > 60; GFR NON-AFRICAN AMERICAN > 60
--- NOTE | 2018-05-27 11:09 | RAD ---
HISTORY: follow up COMPARISON: Chest radiograph dated 05/21 2. FINDINGS: LUNGS: Persistent patchy left lower lobe opacities. PLEURA: No significant pleural effusion identified, no pneumothorax apparent. CARDIOVASCULAR: Atherosclerotic aortic calcifications. Cardiomediastinal silhouette stably prominent. OSSEOUS STRUCTURES: Unchanged. VISUALIZED UPPER ABDOMEN: Normal. OTHER FINDINGS: None. IMPRESSION: Persistent patchy left lower lobe opacities.
[2018-05-27] MEDS: Promethazine 6.25 MG/5 ML CUP PO SCH ×3 (11:53→18:11)
[2018-05-27] MEDS: Pantoprazole 40 mg Susp UD PO SCH (11:55)
[2018-05-27] MEDS: Valproic Acid 250 mg/5 ml UD Cup PO SCH ×3 (11:55→18:09)
[2018-05-27] MEDS: Silver Sulfadiazine 1% Cream (20 gm) TOP SCH ×2 (11:55→18:14)
[2018-05-27] MEDS: Enoxaparin 40 mg Syringe SC SCH (11:56)
--- NOTE | 2018-05-27 14:22 | CP.PCM.PN ---
Subjective - Date & Time of Evaluation Date of Evaluation: 05/27/18 Time of Evaluation: 01:10 - Subjective Subjective: dictated Objective - Vital Signs/Intake and Output Vital Signs (last 24 hours): Temp Pulse Resp BP Pulse Ox 97.3 F L 107 H 20 109/71 97 05/27/18 07:00 05/27/18 12:30 05/27/18 12:30 05/27/18 07:00 05/27/18 12:30 Intake and Output: 05/27/18 05/27/18 06:59 18:59 Intake Total 1156 Output Total 400 Balance 756 - Medications Medications: Current Medications Albuterol/Ipratropium (Duoneb 3 Mg/0.5 Mg (3 Ml) Ud) 3 ml INH RQ4 [facility] Aspirin (Aspirin Chewable) 81 mg PO DAILY [facility] Last Admin: 05/27/18 11:54 Dose: 81 mg Enoxaparin Sodium (Lovenox) 40 mg SC DAILY [facility] Last Admin: 05/27/18 11:56 Dose: 40 mg Glipizide (Glucotrol) 10 mg PO BID [facility] Last Admin: 05/27/18 11:52 Dose: Not Given Vancomycin HCl 1,250 mg/ (Sodium Chloride) 250 mls @ 166.6 mls/hr IVPB DAILY [facility] PRN Reason: Protocol Last Admin: 05/27/18 11:52 Dose: 166.6 mls/hr Meropenem 1 gm/ Sodium (Chloride) 100 mls @ 100 mls/hr IVPB Q8 [facility] PRN Reason: Protocol Last Admin: 05/27/18 05:57 Dose: 100 mls/hr Levetiracetam 750 mg/ Sodium (Chloride) 107.5 mls @ 420 mls/hr IVPB Q12 [facility] Last Admin: 05/27/18 11:52 Dose: 420 mls/hr Fat Emulsion Intravenous (Intralipid 20%) 500 mls @ 49 mls/hr IV TuThSa [facility] Last Admin: 05/25/18 17:27 Dose: 49 mls/hr Chromium/Copper/Manganese/Zinc (1 ml/ Amino Acids) 1,001 mls @ 42 mls/hr IV .[id number] ONE Stop: 05/27/18 17:49 Last Admin: 05/26/18 18:05 Dose: 42 mls/hr Chromium/Copper/Manganese/Zinc 1 ml/ Multivitamins/Vitamin C 10 ml/ Amino Acids 1,011 mls @ 42 mls/hr IV .Q24H ONE Stop: 05/28/18 17:59 Insulin Human Regular (Novolin R) 0 unit SC [facility] PRN Reason: Protocol Last Admin: 05/27/18 12:24 Dose: 2 unit Lisinopril (Zestril) 5 mg PO DAILY [facility] Last Admin: 05/27/18 12:00 Dose: 5 mg Pantoprazole Sodium (Protonix Susp) 40 mg PO DAILY [facility] Last Admin: 05/27/18 11:55 Dose: 40 mg Promethazine HCl (Phenergan Syrup) 6.25 mg PO TID [facility] Last Admin: 05/27/18 13:22 Dose: Not Given Quetiapine Fumarate (Seroquel) 200 mg PO DAILY [facility] Last Admin: 05/27/18 11:54 Dose: 200 mg Quetiapine Fumarate (Seroquel) 200 mg PO [facility] Last Admin: 05/26/18 22:57 Dose: Not Given Risperidone (Risperdal Tab) 2 mg PO DAILY [facility] Last Admin: 05/27/18 11:54 Dose: 2 mg Rosuvastatin Calcium (Crestor) 5 mg PO HS [facility] Last Admin: 05/26/18 22:56 Dose: Not Given Silver Sulfadiazine (Silvadene 1% 20 Gm) 0 ea TOP BID [facility] Last Admin: 05/27/18 11:55 Dose: 1 applic Tamsulosin HCl (Flomax) 0.4 mg PO DAILY [facility] Last Admin: 05/27/18 11:55 Dose: 0.4 mg Trazodone HCl (Desyrel) 50 mg PO DAILY [facility] Last Admin: 05/27/18 11:54 Dose: 50 mg Valproate Sodium (Depakene Oral Soln) 250 mg PO BID [facility] Last Admin: 05/27/18 12:08 Dose: Not Given - Labs Labs: 05/27/18 08:08 05/27/18 08:08
--- NOTE | 2018-05-27 16:01 | PCM.URO ---
Urology Progress Note - Objective Lab Studies: Reviewed (no gu change) Lab Results Last 24 Hours: Laboratory Results - last 24 hr 05/26/18 05/26/18 05/27/18 18:19 21:46 06:25 WBC RBC Hgb Hct MCV MCH MCHC RDW Plt Count MPV Neut % (Auto) Lymph % (Auto) [place] % (Auto) Eos % (Auto) Baso % (Auto) Neut # (Auto) Lymph # (Auto) [place] # (Auto) Eos # (Auto) Baso # (Auto) Sodium Potassium Chloride Carbon Dioxide Anion Gap BUN Creatinine Est GFR ( Amer) Est GFR (Non-Af Amer) POC Glucose (mg/dL) 195 H 195 H 192 H Random Glucose Calcium Total Bilirubin AST ALT Alkaline Phosphatase Total Creatine Kinase Total Protein Albumin Globulin Albumin/Globulin Ratio 05/27/18 05/27/18 05/27/18 08:08 08:08 11:37 WBC 6.6 RBC 3.66 L Hgb 9.9 L Hct 30.1 L MCV 82.2 MCH 27.1 MCHC 33.0 RDW 13.8 Plt Count 162 MPV 10.7 Neut % (Auto) 56.7 Lymph % (Auto) 30.2 [place] % (Auto) 8.6 Eos % (Auto) 3.9 Baso % (Auto) 0.6 Neut # (Auto) 3.8 Lymph # (Auto) 2.0 [place] # (Auto) 0.6 Eos # (Auto) 0.3 Baso # (Auto) 0.0 Sodium 138 Potassium 4.2 Chloride 102 Carbon Dioxide 27 Anion Gap 13 BUN 17 Creatinine 0.8 Est GFR ( Amer) > 60 Est GFR (Non-Af Amer) > 60 POC Glucose (mg/dL) 229 H Random Glucose 217 H Calcium 9.3 Total Bilirubin 0.5 AST 30 ALT 64 Alkaline Phosphatase 89 Total Creatine Kinase 80 Total Protein 6.4 Albumin 3.4 L Globulin 3.0 Albumin/Globulin Ratio 1.1 Intake & Output: Intake & Output 05/26/18 05/27/18 05/27/18 18:59 06:59 18:59 Intake Total 1156 Output Total 400 Balance 756 Intake: Intake, IV Amount 620 Right Forearm 620 Oral 200 TPN/PPN 336 Output: Urine 400 Urine, Voided 400 Vital Signs: Vital Signs - 24 hr 07/07/0605/27/18 05/27/18 23:45 00:51 07:00 Temperature 98.9 F 97.3 F L Pulse Rate 92 H 89 96 H Respiratory 20 20 Rate Blood Pressure 134/79 109/71 O2 Sat by Pulse 98 96 Oximetry 05/27/18 05/27/18 07:03 12:30 Temperature Pulse Rate 83 107 H Respiratory 20 Rate Blood Pressure O2 Sat by Pulse 97 Oximetry
--- NOTE | 2018-05-27 16:02 | CARD ---
APPROVED REPORT EKG Measurement Heart [id number] [place] [id number] [id number] <Conclusion> Sinus tachycardia with fusion complexes Otherwise normal ECG
[2018-05-27] MEDS ORDERED: PPN #3 IV ONE (18:00)
--- NOTE | 2018-05-27 21:02 | CP.PCM.PN ---
Subjective - Date & Time of Evaluation Date of Evaluation: 05/27/18 Time of Evaluation: 09:15 - Subjective Subjective: clinically same Objective - Vital Signs/Intake and Output Vital Signs (last 24 hours): Temp Pulse Resp BP Pulse Ox 97.7 F 92 H 20 114/75 100 05/27/18 15:08 05/27/18 15:08 05/27/18 15:08 05/27/18 15:08 05/27/18 15:08 - Medications Medications: Current Medications Albuterol/Ipratropium (Duoneb 3 Mg/0.5 Mg (3 Ml) Ud) 3 ml INH RQ4 [facility] Last Admin: 05/27/18 20:21 Dose: 3 ml Aspirin (Aspirin Chewable) 81 mg PO DAILY [facility] Last Admin: 05/27/18 11:54 Dose: 81 mg Enoxaparin Sodium (Lovenox) 40 mg SC DAILY [facility] Last Admin: 05/27/18 11:56 Dose: 40 mg Glipizide (Glucotrol) 10 mg PO BID [facility] Last Admin: 05/27/18 18:10 Dose: Not Given Vancomycin HCl 1,250 mg/ (Sodium Chloride) 250 mls @ 166.6 mls/hr IVPB DAILY [facility] PRN Reason: Protocol Last Admin: 05/27/18 11:52 Dose: 166.6 mls/hr Meropenem 1 gm/ Sodium (Chloride) 100 mls @ 100 mls/hr IVPB Q8 [facility] PRN Reason: Protocol Last Admin: 05/27/18 14:49 Dose: 100 mls/hr Levetiracetam 750 mg/ Sodium (Chloride) 107.5 mls @ 420 mls/hr IVPB Q12 [facility] Last Admin: 05/27/18 11:52 Dose: 420 mls/hr Fat Emulsion Intravenous (Intralipid 20%) 500 mls @ 49 mls/hr IV TuThSa [facility] Last Admin: 05/25/18 17:27 Dose: 49 mls/hr Chromium/Copper/Manganese/Zinc 1 ml/ Multivitamins/Vitamin C 10 ml/ Amino Acids 1,011 mls @ 42 mls/hr IV .Q24H ONE Stop: 05/28/18 17:59 Last Admin: 05/27/18 18:09 Dose: 42 mls/hr Insulin Human Regular (Novolin R) 0 unit SC ACHS [facility] PRN Reason: Protocol Last Admin: 05/27/18 17:30 Dose: 2 unit Lisinopril (Zestril) 5 mg PO DAILY [facility] Last Admin: 05/27/18 12:00 Dose: 5 mg Pantoprazole Sodium (Protonix Susp) 40 mg PO DAILY [facility] Last Admin: 05/27/18 11:55 Dose: 40 mg Promethazine HCl (Phenergan Syrup) 6.25 mg PO TID [facility] Last Admin: 05/27/18 18:11 Dose: Not Given Quetiapine Fumarate (Seroquel) 200 mg PO DAILY [facility] Last Admin: 05/27/18 11:54 Dose: 200 mg Quetiapine Fumarate (Seroquel) 200 mg PO [facility] Last Admin: 05/26/18 22:57 Dose: Not Given Risperidone (Risperdal Tab) 2 mg PO DAILY [facility] Last Admin: 05/27/18 11:54 Dose: 2 mg Rosuvastatin Calcium (Crestor) 5 mg PO [facility] Last Admin: 05/26/18 22:56 Dose: Not Given Silver Sulfadiazine (Silvadene 1% 20 Gm) 0 ea TOP BID [facility] Last Admin: 05/27/18 18:14 Dose: 1 applic Tamsulosin HCl (Flomax) 0.4 mg PO DAILY [facility] Last Admin: 05/27/18 11:55 Dose: 0.4 mg Trazodone HCl (Desyrel) 50 mg PO DAILY [facility] Last Admin: 05/27/18 11:54 Dose: 50 mg Valproate Sodium (Depakene Oral Soln) 250 mg PO BID [facility] Last Admin: 05/27/18 18:09 Dose: Not Given - Labs Labs: 05/27/18 08:08 05/27/18 08:08 - Constitutional Appears: Well - Head Exam Head Exam: ATRAUMATIC, NORMAL INSPECTION, NORMOCEPHALIC - Eye Exam Eye Exam: EOMI, Normal appearance, PERRL Pupil Exam: NORMAL ACCOMODATION, PERRL - ENT Exam ENT Exam: Mucous Membranes Moist, Normal Exam - Neck Exam Neck Exam: Full ROM, Normal Inspection. absent: Lymphadenopathy - Respiratory Exam Respiratory Exam: Decreased Breath Sounds - Cardiovascular Exam Cardiovascular Exam: REGULAR RHYTHM, +S1, +S2 - GI/Abdominal Exam GI & Abdominal Exam: Soft, Diminished Bowel Sounds - Rectal Exam Rectal Exam: Deferred Assessment and Plan - Assessment and Plan (Free Text) Plan: Discussed with the Encourage p.o. feeding The urology consultations IV antibiotic Septic workup PPN Encourage p.o. feeding Glipizide DuoNeb Meropenem iv antibiotic Lisinopril Follow-up with ID also Follow-up with cardiology
[2018-05-27] MEDS: ROSUVASTATIN 5 MG PO SCH (22:39)
--- NOTE | 2018-05-28 00:11 | PN ---
DATE: 05/27/2018 SUBJECTIVE: The patient was holding his abdomen, and he is aphasic, and he has been also aspirating according to the nurse. X-ray was done this morning, and he had diffuse rhonchi and wheezing in the morning. PHYSICAL EXAMINATION: GENERAL: T-max is 97.7, pulse is 92 right now, blood pressure 114/75, and respirations are 20. HEENT: Head is atraumatic and normocephalic. Tongue was dry. NECK: Supple. He is a mouth breather probably. LUNGS: Has bilateral mild rhonchi. HEART: S1 and S2 are regular. ABDOMEN: Soft. Nontender. No guarding. No rigidity present. EXTREMITIES: Has no edema, clubbing, or cyanosis. LABORATORY DATA: White count is 6.6, hemoglobin 9.9, and BUN is 27. Creatinine 0.8. He has been on medications. He is on albuterol again, and he is on Lovenox, glipizide, insulin. He is on Keppra IV and lisinopril. He remains on Merrem, and he is on meropenem at this time and vancomycin, which we had started initially, so he has been on these medications since 05/21/2016, but he keeps on probably aspirating and he retains urine also. He came in with urinary retention, and x-ray was done today because it was suspected he is aspirating and x-ray shows persistent patchy left lower opacities. The patient should be evaluated by the swallowing eval people so that we are sure that if he can tolerate food or not because of his right hemiplegia and aphasia. It seems that he __has___ aspiration.pneumonia We will follow. Jenna Fine MD MTDD
[2018-05-28] MEDS: Albuterol-Ipratrop 3 mg / 0.5 (3 ml) UD INH SCH ×7 (01:20→23:49)
--- NOTE | 2018-05-28 05:05 | PN ---
DATE: 05/27/2018 SUBJECTIVE: The patient has choked on his pureed food and he is restless and combative, PHYSICAL EXAMINATION: VITAL SIGNS: Blood pressure 109/71, heart rate 96, temperature 97.3, respirations 20. HEENT: Pale conjunctivae. CHEST: Diminished breath sounds bilaterally on the bases. HEART: S1 and S2 regular. EXTREMITIES: No edema. LABORATORY DATA: Today's hemoglobin and hematocrit are 9.9 and 30.1, white count and platelet count are within normal limits. Today's SMA-7 is within normal limits except for glucose of 117. Chest x-ray performed today, official report, persistent patchy left lower opacity. ASSESSMENT: 1. Cerebrovascular accident 10 years ago with residual right hemiparesis and expressive aphagia. 2. Rule out aspiration. 3. Uncontrolled diabetes mellitus. 4. Hypertension. RECOMMENDATIONS: Continue current IV meropenem at 1 gm every 8 hours, subcutaneous Lovenox 40 mg once a day, glipizide 10 mg twice a day, Depakene oral solution 250 mg twice a day, Crestor 5 mg once a day, aspirin 81 mg once a day. The case was discussed with the primary physician Dr. Adriana Urbina. The patient in my opinion should be considered for gastrostomy tube placement as well as if the family agrees with this opinion. Nathan Sexton MD
[2018-05-28] MEDS: Meropenem 1 GM in Sodium Chloride 0.9% 100 ML IVPB SCH ×3 (05:29→21:59)
[2018-05-28 07:40] LABS: BASO % 0.7 % (0.0-2.0); EOS # 0.3 K/uL (0.0-0.7); EOS % 4.7 % (0.0-4.0); HEMOGLOBIN 9.7 g/dL (12.0-18.0); LYMPH # 1.4 K/uL (1.0-4.3); LYMPH % 22.7 % (20.0-40.0); MEAN CELL VOLUME 81.5 fL (80.0-94.0); MEAN CORPUSCULAR HEMOGLOBIN 27.2 pg (27.0-31.0); MEAN CORPUSCULAR HGB CONC 33.4 g/dL (33.0-37.0); MEAN PLATELET VOLUME 10.6 fL (7.2-11.7); MONO # 0.5 K/uL (0.0-0.8); MONO % 8.5 % (0.0-10.0); NEUT # 3.9 K/uL (1.8-7.0); NEUT % 63.4 % (50.0-75.0); RBC 3.55 Mil/uL (4.40-5.90); RED CELL DISTRIBUTION WIDTH 13.3 % (11.5-14.5); WHITE BLOOD COUNT 6.2 K/uL (4.8-10.8)
[2018-05-28 08:06] LABS: ALBUMIN 3.1 g/dL (3.5-5.0); ALT/SGPT 54 U/L (21-72); AST/SGOT 34 U/L (17-59); BLOOD UREA NITROGEN 21 mg/dL (9-20); CALCIUM 8.8 mg/dl (8.6-10.4); GFR AFRICAN-AMERICAN > 60; GFR NON-AFRICAN AMERICAN > 60
[2018-05-28] MEDS: (Novolin R) Insulin Human Regular 100 units/ml vial SC SCH ×4 (08:10→22:00)
[2018-05-28] MEDS: Valproic Acid 250 mg/5 ml UD Cup PO SCH ×2 (10:37→18:00)
[2018-05-28] MEDS: Promethazine 6.25 MG/5 ML CUP PO SCH ×3 (10:39→18:00)
[2018-05-28] MEDS: Pantoprazole 40 mg Susp UD PO SCH (10:40)
[2018-05-28] MEDS: Silver Sulfadiazine 1% Cream (20 gm) TOP SCH ×2 (10:41→18:00)
[2018-05-28] MEDS: Enoxaparin 40 mg Syringe SC SCH ×2 (11:21→11:23)
--- NOTE | 2018-05-28 11:43 | CP.PCM.PN ---
Subjective - Date & Time of Evaluation Date of Evaluation: 05/28/18 Time of Evaluation: 09:45 - Subjective Subjective: clinically same Objective - Vital Signs/Intake and Output Vital Signs (last 24 hours): Temp Pulse Resp BP Pulse Ox 98 F 83 18 124/75 100 05/28/18 08:13 05/28/18 08:13 05/28/18 08:13 05/28/18 08:13 05/28/18 08:13 Intake and Output: 05/28/18 05/28/18 06:59 18:59 Intake Total 772 Balance 772 - Medications Medications: Current Medications Albuterol/Ipratropium (Duoneb 3 Mg/0.5 Mg (3 Ml) Ud) 3 ml INH RQ4 [facility] Last Admin: 05/28/18 07:16 Dose: 3 ml Aspirin (Aspirin Chewable) 81 mg PO DAILY [facility] Last Admin: 05/28/18 10:37 Dose: Not Given Enoxaparin Sodium (Lovenox) 40 mg SC DAILY [facility] Last Admin: 05/28/18 11:23 Dose: Not Given Glipizide (Glucotrol) 10 mg PO BID [facility] Last Admin: 05/28/18 10:38 Dose: Not Given Vancomycin HCl 1,250 mg/ (Sodium Chloride) 250 mls @ 166.6 mls/hr IVPB DAILY [facility] PRN Reason: Protocol Last Admin: 05/28/18 11:09 Dose: 166.6 mls/hr Meropenem 1 gm/ Sodium (Chloride) 100 mls @ 100 mls/hr IVPB Q8 [facility] PRN Reason: Protocol Last Admin: 05/28/18 05:29 Dose: 100 mls/hr Levetiracetam 750 mg/ Sodium (Chloride) 107.5 mls @ 420 mls/hr IVPB Q12 [facility] Last Admin: 05/28/18 10:45 Dose: 420 mls/hr Fat Emulsion Intravenous (Intralipid 20%) 500 mls @ 49 mls/hr IV TuThSa [facility] Last Admin: 05/25/18 17:27 Dose: 49 mls/hr Chromium/Copper/Manganese/Zinc 1 ml/ Multivitamins/Vitamin C 10 ml/ Amino Acids 1,011 mls @ 42 mls/hr IV .Q24H ONE Stop: 05/28/18 17:59 Last Admin: 05/27/18 18:09 Dose: 42 mls/hr Multivitamins/Vitamin C 10 ml/Chromium/Copper/Manganese/Zinc 1 ml/ Amino Acids 1,011 mls @ 42 mls/hr IV .Q24H ONE Stop: 05/29/18 17:59 Insulin Human Regular (Novolin R) 0 unit SC [facility] PRN Reason: Protocol Last Admin: 05/28/18 11:10 Dose: Not Given Lisinopril (Zestril) 5 mg PO DAILY [facility] Last Admin: 05/28/18 10:41 Dose: Not Given Pantoprazole Sodium (Protonix Susp) 40 mg PO DAILY [facility] Last Admin: 05/28/18 10:40 Dose: Not Given Promethazine HCl (Phenergan Syrup) 6.25 mg PO TID [facility] Last Admin: 05/28/18 10:39 Dose: Not Given Quetiapine Fumarate (Seroquel) 200 mg PO DAILY [facility] Last Admin: 05/28/18 10:40 Dose: Not Given Quetiapine Fumarate (Seroquel) 200 mg PO [facility] Last Admin: 05/27/18 22:40 Dose: Not Given Risperidone (Risperdal Tab) 2 mg PO DAILY [facility] Last Admin: 05/28/18 10:40 Dose: Not Given Rosuvastatin Calcium (Crestor) 5 mg PO [facility] Last Admin: 05/27/18 22:39 Dose: Not Given Silver Sulfadiazine (Silvadene 1% 20 Gm) 0 ea TOP BID [facility] Last Admin: 05/28/18 10:41 Dose: 1 applic Tamsulosin HCl (Flomax) 0.4 mg PO DAILY [facility] Last Admin: 05/28/18 10:38 Dose: Not Given Trazodone HCl (Desyrel) 50 mg PO DAILY [facility] Last Admin: 05/28/18 10:38 Dose: Not Given Valproate Sodium (Depakene Oral Soln) 250 mg PO BID [facility] Last Admin: 05/28/18 10:37 Dose: Not Given - Labs Labs: 05/28/18 07:10 05/28/18 07:10 - Constitutional Appears: Well - Head Exam Head Exam: ATRAUMATIC, NORMAL INSPECTION, NORMOCEPHALIC - Eye Exam Eye Exam: EOMI, Normal appearance, PERRL Pupil Exam: NORMAL ACCOMODATION, PERRL - ENT Exam ENT Exam: Mucous Membranes Moist, Normal Exam - Neck Exam Neck Exam: Full ROM, Normal Inspection. absent: Lymphadenopathy - Respiratory Exam Respiratory Exam: Decreased Breath Sounds - Cardiovascular Exam Cardiovascular Exam: REGULAR RHYTHM, +S1, +S2 - GI/Abdominal Exam GI & Abdominal Exam: Soft, Diminished Bowel Sounds - Rectal Exam Rectal Exam: Deferred Assessment and Plan - Assessment and Plan (Free Text) Plan: Encourage p.o. feeding The urology consultations IV antibiotic Septic workup PPN Encourage p.o. feeding Glipizide DuoNeb Meropenem Vancomycin Lisinopril Follow-up with ID also Follow-up with cardiology
--- NOTE | 2018-05-28 16:30 | CARD ---
APPROVED REPORT Date of service: 05/23/2018 EXAM: Two-dimensional and M-mode echocardiogram with Doppler and color Doppler. Other Information Quality : GoodRhythm : INDICATION Infection:Rule out subacute bacterial endocarditis 2D DIMENSIONS IVSd1.1 (0.7-1.1cm)LVDd3.9 (3.9-5.9cm) PWd1.3 (0.7-1.1cm)LVDs2.2 (2.5-4.0cm) FS (%) 44.6 %LVEF (%)76.5 (>50%) M-Mode DIMENSIONS Left Atrium (MM)3.59 (2.5-4.0cm)IVSd1.00 (0.7-1.1cm) Aortic Root3.61 (2.2-3.7cm)LVDd4.00 (4.0-5.6cm) Aortic Cusp Exc.2.39 (1.5-2.0cm)PWd1.02 (0.7-1.1cm) FS (%) 46 %LVDs2.15 (2.0-3.8cm) LVEF (%)78 (>50%) Mitral Valve MV E Pzppswpd73.7cm/sMV A Hbtwqzfb323.7cm/sE/A ratio0.5 TDI E/Lateral E'0.0E/Medial E'0.0 <Conclusion> Left ventricle: thickness: normal; size: normal; overall ejection fraction: 65%: diastolic filling pressures: normal Mitral valve: annulus: normal: leaflets: mild discrete calcification: excursion: normal; no significant trans-mitral gradient: No significant incompetence: left atrium: normal Aortic valve: leaflets: mild thickening: excursion: normal; no significant trans-aortic gradient: No significant incompetence: aortic root: normal Right sided chambers: normal; Pulmonary valve: normal; no significant incompetence; Tricuspid valve: grossly normal; mild incompetence: Intra-cardiac hemodynamics: pulmonary systolic pressures: normal; central venous pressures: normal No pericardial effusion Suggest OLEG
[2018-05-28] MEDS ORDERED: PPN #4 IV ONE (18:00)
[2018-05-28] MEDS: Fat Emulsion 20% IV 500 ML IV SCH (18:29)
[2018-05-28] MEDS: ROSUVASTATIN 5 MG PO SCH (22:02)
--- NOTE | 2018-05-28 22:12 | CP.PCM.PN ---
Subjective - Date & Time of Evaluation Date of Evaluation: 05/28/18 Time of Evaluation: 02:00 - Subjective Subjective: dictated Objective - Vital Signs/Intake and Output Vital Signs (last 24 hours): Temp Pulse Resp BP Pulse Ox 98.8 F 114 H 20 127/60 99 05/28/18 16:00 05/28/18 16:00 05/28/18 16:00 05/28/18 16:00 05/28/18 16:00 - Medications Medications: Current Medications Albuterol/Ipratropium (Duoneb 3 Mg/0.5 Mg (3 Ml) Ud) 3 ml INH RQ4 [facility] Last Admin: 05/28/18 19:49 Dose: 3 ml Aspirin (Aspirin Chewable) 81 mg PO DAILY [facility] Last Admin: 05/28/18 10:37 Dose: Not Given Enoxaparin Sodium (Lovenox) 40 mg SC DAILY [facility] Last Admin: 05/28/18 11:23 Dose: Not Given Glipizide (Glucotrol) 10 mg PO BID [facility] Last Admin: 05/28/18 18:00 Dose: Not Given Vancomycin HCl 1,250 mg/ (Sodium Chloride) 250 mls @ 166.6 mls/hr IVPB DAILY [facility] PRN Reason: Protocol Last Admin: 05/28/18 11:09 Dose: 166.6 mls/hr Meropenem 1 gm/ Sodium (Chloride) 100 mls @ 100 mls/hr IVPB Q8 [facility] PRN Reason: Protocol Last Admin: 05/28/18 21:59 Dose: 100 mls/hr Levetiracetam 750 mg/ Sodium (Chloride) 107.5 mls @ 420 mls/hr IVPB Q12 [facility] Last Admin: 05/28/18 21:53 Dose: 420 mls/hr Fat Emulsion Intravenous (Intralipid 20%) 500 mls @ 49 mls/hr IV TuThSa [facility] Last Admin: 05/28/18 18:29 Dose: 49 mls/hr Multivitamins/Vitamin C 10 ml/Chromium/Copper/Manganese/Zinc 1 ml/ Amino Acids 1,011 mls @ 42 mls/hr IV .Q24H ONE Stop: 05/29/18 17:59 Last Admin: 05/28/18 18:29 Dose: 42 mls/hr Insulin Human Regular (Novolin R) 0 unit SC ACHS [facility] PRN Reason: Protocol Last Admin: 05/28/18 22:00 Dose: 2 unit Lisinopril (Zestril) 5 mg PO DAILY [facility] Last Admin: 05/28/18 10:41 Dose: Not Given Pantoprazole Sodium (Protonix Susp) 40 mg PO DAILY [facility] Last Admin: 05/28/18 10:40 Dose: Not Given Promethazine HCl (Phenergan Syrup) 6.25 mg PO TID [facility] Last Admin: 05/28/18 18:00 Dose: Not Given Quetiapine Fumarate (Seroquel) 200 mg PO DAILY [facility] Last Admin: 05/28/18 10:40 Dose: Not Given Quetiapine Fumarate (Seroquel) 200 mg PO HS [facility] Last Admin: 05/28/18 21:52 Dose: Not Given Risperidone (Risperdal Tab) 2 mg PO DAILY [facility] Last Admin: 05/28/18 10:40 Dose: Not Given Rosuvastatin Calcium (Crestor) 5 mg PO HS [facility] Last Admin: 05/28/18 22:02 Dose: Not Given Silver Sulfadiazine (Silvadene 1% 20 Gm) 0 ea TOP BID [facility] Last Admin: 05/28/18 18:00 Dose: 1 applic Tamsulosin HCl (Flomax) 0.4 mg PO DAILY [facility] Last Admin: 05/28/18 10:38 Dose: Not Given Trazodone HCl (Desyrel) 50 mg PO DAILY [facility] Last Admin: 05/28/18 10:38 Dose: Not Given Valproate Sodium (Depakene Oral Soln) 250 mg PO BID [facility] Last Admin: 05/28/18 18:00 Dose: Not Given - Labs Labs: 05/28/18 07:10 05/28/18 07:10
--- NOTE | 2018-05-29 02:31 | PN ---
DATE: 05/28/2018 INFECTIOUS DISEASE FOLLOWUP SUBJECTIVE: The patient was awake, alert. He is aphasic. Today, he was not groaning and he was breathing easier. He has been on Hyperal now, and I think he seems to be breathing better. PHYSICAL EXAMINATION: VITAL SIGNS: T-max is 98.8, pulse 97, blood pressure 137/60, respirations are 20. HEENT: Head is atraumatic. NECK: Supple. LUNGS: Have occasional rhonchi. HEART: S1 and S2 are regular. ABDOMEN: Soft, nontender. No guarding, no rigidity present. EXTREMITIES: Right hemiplegia present. Left side is unremarkable. LABORATORY DATA: White count is 6.2, hemoglobin 9.7, hematocrit 28.9, platelet count is 179. BUN is 12, creatinine is 0.9. ASSESSMENT AND PLAN: He was seen yesterday that he was aspirating. So, we are covering him with antibiotics for aspiration. An x-ray was done yesterday. The chest x-ray shows persistent patchy left lower lobe opacities. So, the patient has aspiration pneumonia. The patient looks little better right now. We will follow and continue present antibiotics for now. If he is not able to swallow well, he probably will need a percutaneous endoscopic gastrostomy, it seems like which may be safer for him to feed him. I think it is set for aspiration. Jenna Fine MD
[2018-05-29] MEDS: Albuterol-Ipratrop 3 mg / 0.5 (3 ml) UD INH SCH ×5 (04:09→23:38)
[2018-05-29] MEDS: Meropenem 1 GM in Sodium Chloride 0.9% 100 ML IVPB SCH ×3 (05:57→22:21)
--- NOTE | 2018-05-29 07:46 | PN ---
DATE: 05/28/2018 SUBJECTIVE: No reported ventricular arrhythmia or atrial arrhythmia. The patient appears confused and restless. PHYSICAL EXAMINATION: VITAL SIGNS: Blood pressure 124/75, heart rate 83, temperature 98, and respirations 18. HEENT: Pale conjunctivae. CHEST: Minimal basal rhonchi. HEART: S1 and S2 regular. ABDOMEN: Soft EXTREMITIES: No edema. LABORATORY DATA: Today's hemoglobin and hematocrit are 9.7 and 28.9. White count and platelet count are within normal limits. Today's SMA-7 is within normal limits except for glucose of 210 and BUN of 21. ASSESSMENT: 1. Cerebrovascular accident with residual right hemiplegia and expressive aphasia. 2. Staphylococcus-coagulase negative bacteremia with no clear vegetation seen on the echocardiographic study. 3. Hypertension and hyperlipidemia. 4. Diabetes mellitus. RECOMMENDATIONS: Continue current aspirin, Crestor, Flomax, glipizide, subcutaneous Lovenox, IV meropenem, Protonix suspension, Seroquel, IV vancomycin, continue Zestril 5 mg daily. Case was discussed with Dr. Bahman Urbina primary physician. Awaiting official echocardiographic study. Nathan Sexton MD
[2018-05-29] MEDS: (Novolin R) Insulin Human Regular 100 units/ml vial SC SCH ×4 (08:11→22:17)
[2018-05-29 08:52] LABS: BASO # 0.1 K/uL (0.0-0.2); BASO % 0.7 % (0.0-2.0); EOS # 0.3 K/uL (0.0-0.7); EOS % 4.2 % (0.0-4.0); LYMPH # 1.4 K/uL (1.0-4.3); LYMPH % 19.7 % (20.0-40.0); MEAN CELL VOLUME 79.8 fL (80.0-94.0); MEAN CORPUSCULAR HEMOGLOBIN 27.4 pg (27.0-31.0); MEAN CORPUSCULAR HGB CONC 34.4 g/dL (33.0-37.0); MONO # 0.4 K/uL (0.0-0.8); MONO % 5.9 % (0.0-10.0); NEUT % 69.5 % (50.0-75.0); RBC 3.66 Mil/uL (4.40-5.90); RED CELL DISTRIBUTION WIDTH 13.4 % (11.5-14.5); WHITE BLOOD COUNT 7.2 K/uL (4.8-10.8)
[2018-05-29 09:05] LABS: ALBUMIN 3.3 g/dL (3.5-5.0); ALT/SGPT 45 U/L (21-72); AST/SGOT 19 U/L (17-59); BLOOD UREA NITROGEN 20 mg/dL (9-20); CALCIUM 8.8 mg/dl (8.6-10.4); GFR AFRICAN-AMERICAN > 60; GFR NON-AFRICAN AMERICAN > 60
[2018-05-29] MEDS: Valproic Acid 250 mg/5 ml UD Cup PO SCH ×2 (11:26→17:54)
[2018-05-29] MEDS: Promethazine 6.25 MG/5 ML CUP PO SCH ×3 (11:27→17:54)
[2018-05-29] MEDS: Pantoprazole 40 mg Susp UD PO SCH (11:28)
[2018-05-29] MEDS: Silver Sulfadiazine 1% Cream (20 gm) TOP SCH ×2 (11:43→17:54)
[2018-05-29] MEDS: Enoxaparin 40 mg Syringe SC SCH (11:53)
[2018-05-29] MEDS ORDERED: Enoxaparin 40 mg Syringe SC ONE (12:00)
[2018-05-29] MEDS ORDERED: PPN #5 IV ONE (18:00)
--- NOTE | 2018-05-29 19:59 | PN ---
DATE: 05/29/2018 SUBJECTIVE: The patient is currently n.p.o. No reported arrhythmia. Apparently, the patient cannot go for barium swallow and instead he was cleared for pureed diet with honey. According to the nurse, there is no official recommendation of that so far. PHYSICAL EXAMINATION: VITAL SIGNS: Blood pressure 126/72, heart rate 75, temperature 98.2, respiration 20. HEENT: Pale conjunctivae. CHEST: Right basilar rhonchi. HEART: S1 and S2, regular. EXTREMITIES: No edema. LABORATORY DATA: Today's SMA-7 was within normal limits except for glucose of 220. Today's hemoglobin and hematocrit 10 and 29.2. White count and platelet count are within normal limit. ASSESSMENT: 1. Abnormal rhythm monitoring, most likely related to muscle twitches from seizure activity. No documented arrhythmia so far. 2. Staphylococcus-coagulase negative. 3. Consider aspiration. 4. Uncontrolled diabetes mellitus. 5. Hypertension and hyperlipidemia. 6. Recent cerebrovascular accident two years ago with residual right hemiplegia and expressive aphasia. RECOMMENDATIONS: Continue IV meropenem, multivitamin as well as IV vancomycin. Oral pills are on hold so far. Nathan Sexton MD
--- NOTE | 2018-05-29 20:46 | CP.PCM.PN ---
Subjective - Date & Time of Evaluation Date of Evaluation: 05/29/18 Time of Evaluation: 10:00 - Subjective Subjective: clinically same Objective - Vital Signs/Intake and Output Vital Signs (last 24 hours): Temp Pulse Resp BP Pulse Ox 97.9 F 99 H 20 103/68 95 05/29/18 15:14 05/29/18 15:14 05/29/18 15:14 05/29/18 15:14 05/29/18 15:14 - Medications Medications: Current Medications Albuterol/Ipratropium (Duoneb 3 Mg/0.5 Mg (3 Ml) Ud) 3 ml INH RQ4 [facility] Last Admin: 05/29/18 16:27 Dose: Not Given Aspirin (Aspirin Chewable) 81 mg PO DAILY [facility] Last Admin: 05/29/18 11:25 Dose: Not Given Glipizide (Glucotrol) 10 mg PO BID [facility] Last Admin: 05/29/18 17:54 Dose: 10 mg Vancomycin HCl 1,250 mg/ (Sodium Chloride) 250 mls @ 166.6 mls/hr IVPB DAILY [facility] PRN Reason: Protocol Last Admin: 05/29/18 11:41 Dose: 166.6 mls/hr Meropenem 1 gm/ Sodium (Chloride) 100 mls @ 100 mls/hr IVPB Q8 [facility] PRN Reason: Protocol Last Admin: 05/29/18 14:22 Dose: 100 mls/hr Levetiracetam 750 mg/ Sodium (Chloride) 107.5 mls @ 420 mls/hr IVPB Q12 [facility] Last Admin: 05/29/18 11:42 Dose: 420 mls/hr Multivitamins/Vitamin C 10 ml/Chromium/Copper/Manganese/Zinc 1 ml/ Amino Acids 1,011 mls @ 42 mls/hr IV .Q24H ONE Stop: 05/30/18 17:59 Last Admin: 05/29/18 17:51 Dose: 42 mls/hr Insulin Human Regular (Novolin R) 0 unit SC ACHS [facility] PRN Reason: Protocol Last Admin: 05/29/18 17:52 Dose: 3 unit Lisinopril (Zestril) 5 mg PO DAILY [facility] Last Admin: 05/29/18 11:29 Dose: Not Given Pantoprazole Sodium (Protonix Susp) 40 mg PO DAILY [facility] Last Admin: 05/29/18 11:28 Dose: Not Given Promethazine HCl (Phenergan Syrup) 6.25 mg PO TID [facility] Last Admin: 05/29/18 17:54 Dose: 6.25 mg Quetiapine Fumarate (Seroquel) 200 mg PO DAILY [facility] Last Admin: 05/29/18 11:28 Dose: Not Given Quetiapine Fumarate (Seroquel) 200 mg PO HS [facility] Last Admin: 05/28/18 21:52 Dose: Not Given Risperidone (Risperdal Tab) 2 mg PO DAILY [facility] Last Admin: 05/29/18 11:28 Dose: Not Given Rosuvastatin Calcium (Crestor) 5 mg PO HS [facility] Last Admin: 05/28/18 22:02 Dose: Not Given Silver Sulfadiazine (Silvadene 1% 20 Gm) 0 ea TOP BID [facility] Last Admin: 05/29/18 17:54 Dose: 1 applic Tamsulosin HCl (Flomax) 0.4 mg PO DAILY [facility] Last Admin: 05/29/18 11:26 Dose: Not Given Trazodone HCl (Desyrel) 50 mg PO DAILY [facility] Last Admin: 05/29/18 11:26 Dose: Not Given Valproate Sodium (Depakene Oral Soln) 250 mg PO BID [facility] Last Admin: 05/29/18 17:54 Dose: 250 mg - Labs Labs: 05/29/18 08:37 05/29/18 08:37 - Constitutional Appears: Well - Head Exam Head Exam: ATRAUMATIC, NORMAL INSPECTION, NORMOCEPHALIC - Eye Exam Eye Exam: EOMI, Normal appearance, PERRL Pupil Exam: NORMAL ACCOMODATION, PERRL - ENT Exam ENT Exam: Mucous Membranes Moist, Normal Exam - Neck Exam Neck Exam: Full ROM, Normal Inspection. absent: Lymphadenopathy - Respiratory Exam Respiratory Exam: Decreased Breath Sounds - Cardiovascular Exam Cardiovascular Exam: REGULAR RHYTHM, +S1, +S2 - GI/Abdominal Exam GI & Abdominal Exam: Soft, Diminished Bowel Sounds - Rectal Exam Rectal Exam: Deferred
--- NOTE | 2018-05-29 21:09 | CP.PCM.PN ---
Subjective - Date & Time of Evaluation Date of Evaluation: 05/29/18 Time of Evaluation: 03:15 - Subjective Subjective: dictated Objective - Vital Signs/Intake and Output Vital Signs (last 24 hours): Temp Pulse Resp BP Pulse Ox 97.9 F 99 H 20 103/68 95 05/29/18 15:14 05/29/18 15:14 05/29/18 15:14 05/29/18 15:14 05/29/18 15:14 - Medications Medications: Current Medications Albuterol/Ipratropium (Duoneb 3 Mg/0.5 Mg (3 Ml) Ud) 3 ml INH RQ4 [facility] Last Admin: 05/29/18 16:27 Dose: Not Given Aspirin (Aspirin Chewable) 81 mg PO DAILY [facility] Last Admin: 05/29/18 11:25 Dose: Not Given Glipizide (Glucotrol) 10 mg PO BID [facility] Last Admin: 05/29/18 17:54 Dose: 10 mg Vancomycin HCl 1,250 mg/ (Sodium Chloride) 250 mls @ 166.6 mls/hr IVPB DAILY [facility] PRN Reason: Protocol Last Admin: 05/29/18 11:41 Dose: 166.6 mls/hr Meropenem 1 gm/ Sodium (Chloride) 100 mls @ 100 mls/hr IVPB Q8 [facility] PRN Reason: Protocol Last Admin: 05/29/18 14:22 Dose: 100 mls/hr Levetiracetam 750 mg/ Sodium (Chloride) 107.5 mls @ 420 mls/hr IVPB Q12 [facility] Last Admin: 05/29/18 11:42 Dose: 420 mls/hr Multivitamins/Vitamin C 10 ml/Chromium/Copper/Manganese/Zinc 1 ml/ Amino Acids 1,011 mls @ 42 mls/hr IV .Q24H ONE Stop: 05/30/18 17:59 Last Admin: 05/29/18 17:51 Dose: 42 mls/hr Insulin Human Regular (Novolin R) 0 unit SC ACHS [facility] PRN Reason: Protocol Last Admin: 05/29/18 17:52 Dose: 3 unit Lisinopril (Zestril) 5 mg PO DAILY [facility] Last Admin: 05/29/18 11:29 Dose: Not Given Pantoprazole Sodium (Protonix Susp) 40 mg PO DAILY [facility] Last Admin: 05/29/18 11:28 Dose: Not Given Promethazine HCl (Phenergan Syrup) 6.25 mg PO TID [facility] Last Admin: 05/29/18 17:54 Dose: 6.25 mg Quetiapine Fumarate (Seroquel) 200 mg PO DAILY [facility] Last Admin: 05/29/18 11:28 Dose: Not Given Quetiapine Fumarate (Seroquel) 200 mg PO HS [facility] Last Admin: 05/28/18 21:52 Dose: Not Given Risperidone (Risperdal Tab) 2 mg PO DAILY [facility] Last Admin: 05/29/18 11:28 Dose: Not Given Rosuvastatin Calcium (Crestor) 5 mg PO [facility] Last Admin: 05/28/18 22:02 Dose: Not Given Silver Sulfadiazine (Silvadene 1% 20 Gm) 0 ea TOP BID [facility] Last Admin: 05/29/18 17:54 Dose: 1 applic Tamsulosin HCl (Flomax) 0.4 mg PO DAILY [facility] Last Admin: 05/29/18 11:26 Dose: Not Given Trazodone HCl (Desyrel) 50 mg PO DAILY [facility] Last Admin: 05/29/18 11:26 Dose: Not Given Valproate Sodium (Depakene Oral Soln) 250 mg PO BID [facility] Last Admin: 05/29/18 17:54 Dose: 250 mg - Labs Labs: 05/29/18 08:37 05/29/18 08:37
[2018-05-29] MEDS: ROSUVASTATIN 5 MG PO SCH (22:21)
--- NOTE | 2018-05-30 03:01 | PN ---
DATE: 05/29/2018 The patient was looking better, however, he is on hyperal. He had mittens on, and he constantly wanted them to be removed it seems, but if we do so, he will pull off all the IVs. He seems to be improving, and he was also seen by the urologist and he ___has__ no change. So at this time, the problem remains whether he is able to be orally fed or not, as he is at a high risk of aspiration, and he looked more comfortable on hyperal now, and he is already on antibiotics since 05/21/2018, so we have given him almost 8 days of antibiotics, would like to see if he tolerates the food orally or he needs a PEG, which needs to be discerned and has to be discussed but we will continue antibiotics for now. Jenna Fine MD MTDAlan
[2018-05-30] MEDS: Albuterol-Ipratrop 3 mg / 0.5 (3 ml) UD INH SCH ×5 (03:11→19:05)
[2018-05-30] MEDS: Meropenem 1 GM in Sodium Chloride 0.9% 100 ML IVPB SCH ×3 (05:22→22:07)
--- NOTE | 2018-05-30 05:54 | PCM.RRT ---
[employer] Nurses Assessment - Situation Date: 05/30/18 - Ventilator Settings SAO2 %: 99 - Constitutional Appears: Cachectic, Chronically Ill - Head Head Exam: NORMAL INSPECTION - Eyes Eye Exam: PERRL - Respiratory Exam Respiratory Exam: NORMAL BREATHING PATTERN. absent: Rhonchi, Wheezes, Respiratory Distress - Cardiovascular Exam Cardiovascular Exam: REGULAR RHYTHM, +S1, +S2, Murmur - Neurological Exam Additional exam: Lethargic - Extremities Exam Extremities Exam: absent: Pedal Edema, Tenderness Plan - Assessment of Findings&Treatment Plan [employer] was called at 5:44am for unresponsiveness. Patient at baseline is asphasic, grunts and opens his eyes. Per nursing, she was examining patient and patient would not respond to verbal cues, sternal rub, or open his eyes. Initial vitals were BP 134/75, HR 88, O2 98%, glucose 107. Patient was examined- lungs were cta b/l, cardiac- s1, s2 normal, regular rhythm and rate, systolic murmur noted ; extremities- negative babinski sign, retracted legs to painful stimuli; patient opened eyes and yelled in response to sternal rub. Vitals were retaken, BP 103/70, HR 87, O2 100%. Patient placed on telemetry. CBC and CMP were ordered. Continue to monitor.
[2018-05-30 07:04] LABS: BASO # 0.1 K/uL (0.0-0.2); BASO % 0.8 % (0.0-2.0); EOS # 0.3 K/uL (0.0-0.7); HEMOGLOBIN 9.8 g/dL (12.0-18.0); LYMPH # 1.8 K/uL (1.0-4.3); LYMPH % 27.4 % (20.0-40.0); MEAN CELL VOLUME 81.8 fL (80.0-94.0); MEAN CORPUSCULAR HEMOGLOBIN 27.3 pg (27.0-31.0); MEAN CORPUSCULAR HGB CONC 33.4 g/dL (33.0-37.0); MEAN PLATELET VOLUME 10.5 fL (7.2-11.7); MONO # 0.5 K/uL (0.0-0.8); MONO % 7.4 % (0.0-10.0); NEUT # 3.8 K/uL (1.8-7.0); NEUT % 59.4 % (50.0-75.0); RBC 3.6 Mil/uL (4.40-5.90); RED CELL DISTRIBUTION WIDTH 13.4 % (11.5-14.5); WHITE BLOOD COUNT 6.4 K/uL (4.8-10.8)
[2018-05-30 07:12] LABS: ALBUMIN 3.3 g/dL (3.5-5.0); ALT/SGPT 42 U/L (21-72); AST/SGOT 17 U/L (17-59); BLOOD UREA NITROGEN 22 mg/dL (9-20); CALCIUM 9.2 mg/dl (8.6-10.4); GFR AFRICAN-AMERICAN > 60; GFR NON-AFRICAN AMERICAN > 60
[2018-05-30] MEDS: (Novolin R) Insulin Human Regular 100 units/ml vial SC SCH ×4 (07:54→21:21)
[2018-05-30] MEDS: Valproic Acid 250 mg/5 ml UD Cup PO SCH ×2 (10:55→18:45)
[2018-05-30] MEDS: Promethazine 6.25 MG/5 ML CUP PO SCH ×3 (10:56→18:46)
[2018-05-30] MEDS: Pantoprazole 40 mg Susp UD PO SCH (10:56)
[2018-05-30] MEDS: Silver Sulfadiazine 1% Cream (20 gm) TOP SCH ×2 (11:01→18:47)
--- NOTE | 2018-05-30 14:17 | CP.PCM.PN ---
Subjective - Date & Time of Evaluation Date of Evaluation: 05/30/18 Time of Evaluation: 10:30 - Subjective Subjective: clinically same Objective - Vital Signs/Intake and Output Vital Signs (last 24 hours): Temp Pulse Resp BP Pulse Ox 97.8 F 83 20 134/77 100 05/30/18 07:30 05/30/18 07:30 05/30/18 07:30 05/30/18 07:30 05/30/18 07:30 Intake and Output: 05/30/18 05/30/18 06:59 18:59 Intake Total 856 Balance 856 - Medications Medications: Current Medications Albuterol/Ipratropium (Duoneb 3 Mg/0.5 Mg (3 Ml) Ud) 3 ml INH RQ4 [facility] Last Admin: 05/30/18 11:20 Dose: Not Given Aspirin (Aspirin Chewable) 81 mg PO DAILY [facility] Last Admin: 05/30/18 10:55 Dose: Not Given Glipizide (Glucotrol) 10 mg PO BID [facility] Last Admin: 05/30/18 10:55 Dose: Not Given Vancomycin HCl 1,250 mg/ (Sodium Chloride) 250 mls @ 166.6 mls/hr IVPB DAILY [facility] PRN Reason: Protocol Last Admin: 05/30/18 11:00 Dose: 166.6 mls/hr Meropenem 1 gm/ Sodium (Chloride) 100 mls @ 100 mls/hr IVPB Q8 [facility] PRN Reason: Protocol Last Admin: 05/30/18 05:22 Dose: 100 mls/hr Multivitamins/Vitamin C 10 ml/Chromium/Copper/Manganese/Zinc 1 ml/ Amino Acids 1,011 mls @ 42 mls/hr IV .Q24H ONE Stop: 05/30/18 17:59 Last Admin: 05/29/18 17:51 Dose: 42 mls/hr Multivitamins/Vitamin C 10 ml/Chromium/Copper/Manganese/Zinc 1 ml/ Amino Acids 1,011 mls @ 42 mls/hr IV .Q24H ONE Stop: 05/31/18 17:59 Insulin Human Regular (Novolin R) 0 unit SC ACHS [facility] PRN Reason: Protocol Last Admin: 05/30/18 12:15 Dose: Not Given Levetiracetam (Keppra) 750 mg PO BID [facility] Last Admin: 05/30/18 10:55 Dose: Not Given Lisinopril (Zestril) 5 mg PO DAILY [facility] Last Admin: 05/30/18 10:57 Dose: Not Given Pantoprazole Sodium (Protonix Susp) 40 mg PO DAILY [facility] Last Admin: 05/30/18 10:56 Dose: Not Given Promethazine HCl (Phenergan Syrup) 6.25 mg PO TID [facility] Last Admin: 05/30/18 10:56 Dose: Not Given Quetiapine Fumarate (Seroquel) 200 mg PO DAILY [facility] Last Admin: 05/30/18 10:56 Dose: Not Given Quetiapine Fumarate (Seroquel) 200 mg PO HS [facility] Last Admin: 05/29/18 22:21 Dose: 200 mg Risperidone (Risperdal Tab) 2 mg PO DAILY [facility] Last Admin: 05/30/18 10:56 Dose: Not Given Rosuvastatin Calcium (Crestor) 5 mg PO HS [facility] Last Admin: 05/29/18 22:21 Dose: 5 mg Silver Sulfadiazine (Silvadene 1% 20 Gm) 0 ea TOP BID [facility] Last Admin: 05/30/18 11:01 Dose: 1 applic Tamsulosin HCl (Flomax) 0.4 mg PO DAILY [facility] Last Admin: 05/30/18 10:55 Dose: Not Given Trazodone HCl (Desyrel) 50 mg PO DAILY [facility] Last Admin: 05/30/18 10:55 Dose: Not Given Valproate Sodium (Depakene Oral Soln) 250 mg PO BID [facility] Last Admin: 05/30/18 10:55 Dose: Not Given - Labs Labs: 05/30/18 06:37 05/30/18 06:37 - Constitutional Appears: Well - Head Exam Head Exam: ATRAUMATIC, NORMAL INSPECTION, NORMOCEPHALIC - Eye Exam Eye Exam: EOMI, Normal appearance, PERRL Pupil Exam: NORMAL ACCOMODATION, PERRL - ENT Exam ENT Exam: Mucous Membranes Moist, Normal Exam - Neck Exam Neck Exam: Full ROM, Normal Inspection. absent: Lymphadenopathy - Respiratory Exam Respiratory Exam: Decreased Breath Sounds ( ) - Cardiovascular Exam Cardiovascular Exam: REGULAR RHYTHM, +S1, +S2 - GI/Abdominal Exam GI & Abdominal Exam: Soft, Diminished Bowel Sounds - Rectal Exam Rectal Exam: Deferred
--- NOTE | 2018-05-30 14:27 | CP.PCM.PN ---
Subjective - Date & Time of Evaluation Date of Evaluation: 05/30/18 Time of Evaluation: 01:30 - Subjective Subjective: dictated Objective - Vital Signs/Intake and Output Vital Signs (last 24 hours): Temp Pulse Resp BP Pulse Ox 97.8 F 83 20 134/77 100 05/30/18 07:30 05/30/18 07:30 05/30/18 07:30 05/30/18 07:30 05/30/18 07:30 Intake and Output: 05/30/18 05/30/18 06:59 18:59 Intake Total 856 Balance 856 - Medications Medications: Current Medications Albuterol/Ipratropium (Duoneb 3 Mg/0.5 Mg (3 Ml) Ud) 3 ml INH RQ4 [facility] Last Admin: 05/30/18 11:20 Dose: Not Given Aspirin (Aspirin Chewable) 81 mg PO DAILY [facility] Last Admin: 05/30/18 10:55 Dose: Not Given Glipizide (Glucotrol) 10 mg PO BID [facility] Last Admin: 05/30/18 10:55 Dose: Not Given Vancomycin HCl 1,250 mg/ (Sodium Chloride) 250 mls @ 166.6 mls/hr IVPB DAILY [facility] PRN Reason: Protocol Last Admin: 05/30/18 11:00 Dose: 166.6 mls/hr Meropenem 1 gm/ Sodium (Chloride) 100 mls @ 100 mls/hr IVPB Q8 [facility] PRN Reason: Protocol Last Admin: 05/30/18 14:17 Dose: 100 mls/hr Multivitamins/Vitamin C 10 ml/Chromium/Copper/Manganese/Zinc 1 ml/ Amino Acids 1,011 mls @ 42 mls/hr IV .Q24H ONE Stop: 05/30/18 17:59 Last Admin: 05/29/18 17:51 Dose: 42 mls/hr Multivitamins/Vitamin C 10 ml/Chromium/Copper/Manganese/Zinc 1 ml/ Amino Acids 1,011 mls @ 42 mls/hr IV .Q24H ONE Stop: 05/31/18 17:59 Insulin Human Regular (Novolin R) 0 unit SC ACHS [facility] PRN Reason: Protocol Last Admin: 05/30/18 12:15 Dose: Not Given Levetiracetam (Keppra) 750 mg PO BID [facility] Last Admin: 05/30/18 10:55 Dose: Not Given Lisinopril (Zestril) 5 mg PO DAILY [facility] Last Admin: 05/30/18 10:57 Dose: Not Given Pantoprazole Sodium (Protonix Susp) 40 mg PO DAILY [facility] Last Admin: 05/30/18 10:56 Dose: Not Given Promethazine HCl (Phenergan Syrup) 6.25 mg PO TID [facility] Last Admin: 05/30/18 14:19 Dose: Not Given Quetiapine Fumarate (Seroquel) 200 mg PO DAILY [facility] Last Admin: 05/30/18 10:56 Dose: Not Given Quetiapine Fumarate (Seroquel) 200 mg PO HS [facility] Last Admin: 05/29/18 22:21 Dose: 200 mg Risperidone (Risperdal Tab) 2 mg PO DAILY [facility] Last Admin: 05/30/18 10:56 Dose: Not Given Rosuvastatin Calcium (Crestor) 5 mg PO HS [facility] Last Admin: 05/29/18 22:21 Dose: 5 mg Silver Sulfadiazine (Silvadene 1% 20 Gm) 0 ea TOP BID [facility] Last Admin: 05/30/18 11:01 Dose: 1 applic Tamsulosin HCl (Flomax) 0.4 mg PO DAILY [facility] Last Admin: 05/30/18 10:55 Dose: Not Given Trazodone HCl (Desyrel) 50 mg PO DAILY [facility] Last Admin: 05/30/18 10:55 Dose: Not Given Valproate Sodium (Depakene Oral Soln) 250 mg PO BID [facility] Last Admin: 05/30/18 10:55 Dose: Not Given - Labs Labs: 05/30/18 06:37 05/30/18 06:37
[2018-05-30] MEDS ORDERED: PPN #6 IV ONE (18:00)
--- NOTE | 2018-05-30 19:09 | PN ---
DATE: 05/30/2018 SUBJECTIVE: The patient was in [employer] this morning _as he was unresponsive probably was very lethargic, poorly responsive. He is very alert, but he is bed ridden as he has CVA and he is aphasic and reevaluating the psych meds as well as his seizure medication. PHYSICAL EXAMINATION: VITAL SIGNS: T-max is 97.8, pulse 83, blood pressure 134/77, respirations are 20, saturations 100%. GENERAL: He is on IV Hyperal as he was aspirating before few days ago. HEENT: His eyes are unremarkable. NECK: Supple. LUNGS: Clear at this time. HEART: S1 and S2 regular. ABDOMEN: Soft, nontender. EXTREMITIES: Have no edema. He has right hemiplegia. LABORATORY DATA: Labs are noted. Labs show white count is 6.4, hemoglobin 9.38, hematocrit 29.5, platelet count is 200, BUN is 22, and creatinine is 0.9. He recently denied any chest x-ray today, but he was suspected of aspiration and was switched over to Hyperal. MEDICATIONS: At this time his medication, he is on DuoNeb, aspirin, Glucotrol, Novolin R. He is on Keppra 750 p.o. b.i.d., lisinopril, and he is on Merrem, multivitamin, Pantoprazole, Phenergan, and Seroquel they are not been given because he is off his oral medications at this time. ASSESSMENT AND PLAN: So, we will order a swallowing evaluation tomorrow and see if we can have pureed diet again restarted or he will need _PEG____ and they are looking into the psych meds as he is on lot of psych medications, which need to be reevaluated. We will follow. Jenna Fine MD MTDAlan
--- NOTE | 2018-05-30 21:18 | PN ---
DATE: 05/30/2018 SUBJECTIVE: The patient is restless and less agitated today. No reported arrhythmia. The patient had rapid response at 5:44 a.m. for unresponsiveness. The patient did not respond to verbal cues at that time. He was hemodynamically stable and blood glucose level is 107, that was most likely a seizure episode. PHYSICAL EXAMINATION: VITAL SIGNS: Blood pressure 134/77, heart rate 83, temperature 97.8, and respirations 20. HEENT: Pale conjunctivae. CHEST: Right basal rhonchi. HEART: S1 and S2 regular. ABDOMEN: Soft EXTREMITIES: No edema. LABORATORY DATA: Today's SMA-7 is within normal limits except f glucose 111 and BUN of 22. Today's hemoglobin and hematocrit are 9.8 and 29.5. White count and platelet count are within normal limit. ASSESSMENT: 1. Hypertension and diabetes mellitus. 2. Seizure activity. 3. Cardiovascular accident with residual right hemiparesis and expressive aphasia. 4. Consider aspiration. 5. Coagulase negative Staphylococcus bacteremia. RECOMMENDATIONS: Continue current IV meropenem. Oral meds are being on hold for now. The case was discussed with Dr. Adriana Urbina. Nathan Sexton MD
[2018-05-30] MEDS: ROSUVASTATIN 5 MG PO SCH (22:06)
[2018-05-31] MEDS: Albuterol-Ipratrop 3 mg / 0.5 (3 ml) UD INH SCH ×7 (00:04→23:46)
[2018-05-31 01:26] VITALS: RESP 20
[2018-05-31] MEDS: Meropenem 1 GM in Sodium Chloride 0.9% 100 ML IVPB SCH ×3 (06:07→21:26)
[2018-05-31 07:37] LABS: BASO # 0.1 K/uL (0.0-0.2); BASO % 0.8 % (0.0-2.0); EOS # 0.3 K/uL (0.0-0.7); EOS % 3.5 % (0.0-4.0); HEMOGLOBIN 10.3 g/dL (12.0-18.0); LYMPH # 1.6 K/uL (1.0-4.3); LYMPH % 17.8 % (20.0-40.0); MEAN CORPUSCULAR HEMOGLOBIN 27.1 pg (27.0-31.0); MEAN CORPUSCULAR HGB CONC 33.5 g/dL (33.0-37.0); MEAN PLATELET VOLUME 10.4 fL (7.2-11.7); MONO # 0.5 K/uL (0.0-0.8); MONO % 5.2 % (0.0-10.0); NEUT # 6.5 K/uL (1.8-7.0); NEUT % 72.7 % (50.0-75.0); RBC 3.8 Mil/uL (4.40-5.90); RED CELL DISTRIBUTION WIDTH 13.8 % (11.5-14.5)
[2018-05-31 07:46] LABS: ALBUMIN 3.6 g/dL (3.5-5.0); BLOOD UREA NITROGEN 26 mg/dL (9-20); CALCIUM 9.3 mg/dl (8.6-10.4); GFR AFRICAN-AMERICAN > 60; GFR NON-AFRICAN AMERICAN > 60
[2018-05-31 07:47] LABS: ALB/GLOB RATIO 1.2 (1.0-2.1); ALT/SGPT 42 U/L (21-72); AST/SGOT 24 U/L (17-59)
[2018-05-31] MEDS: (Novolin R) Insulin Human Regular 100 units/ml vial SC SCH ×4 (08:53→21:40)
[2018-05-31] MEDS: Valproic Acid 250 mg/5 ml UD Cup PO SCH ×2 (12:46→18:09)
[2018-05-31] MEDS: Promethazine 6.25 MG/5 ML CUP PO SCH ×3 (12:47→18:10)
[2018-05-31] MEDS: Pantoprazole 40 mg Susp UD PO SCH (12:47)
[2018-05-31] MEDS: Silver Sulfadiazine 1% Cream (20 gm) TOP SCH ×2 (13:03→18:09)
--- NOTE | 2018-05-31 17:11 | CP.PCM.PN ---
Subjective - Date & Time of Evaluation Date of Evaluation: 05/31/18 Time of Evaluation: 03:00 - Subjective Subjective: dictated Objective - Vital Signs/Intake and Output Vital Signs (last 24 hours): Temp Pulse Resp BP Pulse Ox 98.9 F 91 H 20 114/73 100 05/31/18 15:50 05/31/18 15:50 05/31/18 15:50 05/31/18 15:50 05/31/18 15:50 Intake and Output: 05/31/18 05/31/18 06:59 18:59 Intake Total 636 Balance 636 - Medications Medications: Current Medications Albuterol/Ipratropium (Duoneb 3 Mg/0.5 Mg (3 Ml) Ud) 3 ml INH RQ4 [facility] Last Admin: 05/31/18 16:02 Dose: Not Given Aspirin (Aspirin Chewable) 81 mg PO DAILY [facility] Last Admin: 05/31/18 12:46 Dose: Not Given Glipizide (Glucotrol) 10 mg PO BID [facility] Last Admin: 05/31/18 12:47 Dose: Not Given Vancomycin HCl 1,250 mg/ (Sodium Chloride) 250 mls @ 166.6 mls/hr IVPB DAILY [facility] PRN Reason: Protocol Last Admin: 05/31/18 10:55 Dose: 166.6 mls/hr Meropenem 1 gm/ Sodium (Chloride) 100 mls @ 100 mls/hr IVPB Q8 [facility] PRN Reason: Protocol Last Admin: 05/31/18 14:31 Dose: 100 mls/hr Multivitamins/Vitamin C 10 ml/Chromium/Copper/Manganese/Zinc 1 ml/ Amino Acids 1,011 mls @ 42 mls/hr IV .Q24H ONE Stop: 05/31/18 17:59 Last Admin: 05/30/18 18:45 Dose: 42 mls/hr Multivitamins/Vitamin C 10 ml/Chromium/Copper/Manganese/Zinc 1 ml/ Amino Acids 1,011 mls @ 42 mls/hr IV .Q24H ONE Stop: 06/01/18 17:59 Insulin Human Regular (Novolin R) 0 unit SC ACHS [facility] PRN Reason: Protocol Last Admin: 05/31/18 17:04 Dose: Not Given Levetiracetam (Keppra) 750 mg PO BID [facility] Last Admin: 05/31/18 12:47 Dose: Not Given Lisinopril (Zestril) 5 mg PO DAILY [facility] Last Admin: 05/31/18 12:48 Dose: Not Given Pantoprazole Sodium (Protonix Susp) 40 mg PO DAILY [facility] Last Admin: 05/31/18 12:47 Dose: Not Given Promethazine HCl (Phenergan Syrup) 6.25 mg PO TID [facility] Last Admin: 05/31/18 15:28 Dose: 6.25 mg Quetiapine Fumarate (Seroquel) 200 mg PO [facility] Last Admin: 05/30/18 22:07 Dose: 200 mg Rosuvastatin Calcium (Crestor) 5 mg PO [facility] Last Admin: 05/30/18 22:06 Dose: 5 mg Silver Sulfadiazine (Silvadene 1% 20 Gm) 0 ea TOP BID [facility] Last Admin: 05/31/18 13:03 Dose: Not Given Tamsulosin HCl (Flomax) 0.4 mg PO DAILY [facility] Last Admin: 05/31/18 12:47 Dose: Not Given Valproate Sodium (Depakene Oral Soln) 250 mg PO BID [facility] Last Admin: 05/31/18 12:46 Dose: Not Given - Labs Labs: 05/31/18 07:23 05/31/18 07:23
[2018-05-31] MEDS ORDERED: PPN #7 IV ONE (18:00)
--- NOTE | 2018-05-31 20:40 | CP.PCM.PN ---
Subjective - Date & Time of Evaluation Date of Evaluation: 05/31/18 Time of Evaluation: 11:10 - Subjective Subjective: clinically same Objective - Vital Signs/Intake and Output Vital Signs (last 24 hours): Temp Pulse Resp BP Pulse Ox 98.9 F 91 H 20 114/73 100 05/31/18 15:50 05/31/18 15:50 05/31/18 15:50 05/31/18 15:50 05/31/18 15:50 - Medications Medications: Current Medications Albuterol/Ipratropium (Duoneb 3 Mg/0.5 Mg (3 Ml) Ud) 3 ml INH RQ4 [facility] Last Admin: 05/31/18 19:57 Dose: Not Given Aspirin (Aspirin Chewable) 81 mg PO DAILY [facility] Last Admin: 05/31/18 12:46 Dose: Not Given Glipizide (Glucotrol) 10 mg PO BID [facility] Last Admin: 05/31/18 18:10 Dose: 10 mg Vancomycin HCl 1,250 mg/ (Sodium Chloride) 250 mls @ 166.6 mls/hr IVPB DAILY [facility] PRN Reason: Protocol Last Admin: 05/31/18 10:55 Dose: 166.6 mls/hr Meropenem 1 gm/ Sodium (Chloride) 100 mls @ 100 mls/hr IVPB Q8 [facility] PRN Reason: Protocol Last Admin: 05/31/18 14:31 Dose: 100 mls/hr Multivitamins/Vitamin C 10 ml/Chromium/Copper/Manganese/Zinc 1 ml/ Amino Acids 1,011 mls @ 42 mls/hr IV .Q24H ONE Stop: 06/01/18 17:59 Insulin Human Regular (Novolin R) 0 unit SC ACHS [facility] PRN Reason: Protocol Last Admin: 05/31/18 17:04 Dose: Not Given Levetiracetam (Keppra) 750 mg PO BID [facility] Last Admin: 05/31/18 18:10 Dose: 750 mg Lisinopril (Zestril) 5 mg PO DAILY [facility] Last Admin: 05/31/18 12:48 Dose: Not Given Pantoprazole Sodium (Protonix Susp) 40 mg PO DAILY [facility] Last Admin: 05/31/18 12:47 Dose: Not Given Promethazine HCl (Phenergan Syrup) 6.25 mg PO TID [facility] Last Admin: 05/31/18 18:10 Dose: 6.25 mg Quetiapine Fumarate (Seroquel) 200 mg PO HS [facility] Last Admin: 05/30/18 22:07 Dose: 200 mg Rosuvastatin Calcium (Crestor) 5 mg PO HS [facility] Last Admin: 05/30/18 22:06 Dose: 5 mg Silver Sulfadiazine (Silvadene 1% 20 Gm) 0 ea TOP BID [facility] Last Admin: 05/31/18 18:09 Dose: 1 applic Tamsulosin HCl (Flomax) 0.4 mg PO DAILY [facility] Last Admin: 05/31/18 12:47 Dose: Not Given Valproate Sodium (Depakene Oral Soln) 250 mg PO BID [facility] Last Admin: 05/31/18 18:09 Dose: 250 mg - Labs Labs: 05/31/18 07:23 05/31/18 07:23
--- NOTE | 2018-05-31 20:52 | PN ---
DATE: 05/31/2018 SUBJECTIVE: The patient does not appear to be in any respiratory distress. PHYSICAL EXAMINATION: VITAL SIGNS: Blood pressure 124/80, heart rate 85, temperature 97.2, respirations 20. HEENT: Pale conjunctivae. CHEST: Minimal bibasal rhonchi. HEART: S1 and S2 regular. EXTREMITIES: No edema. LABORATORY DATA: SMA-7; sodium 136, potassium 3.8, chloride 100, CO2 of 27, glucose 207, BUN 26, creatinine 1. Today's hemoglobin and hematocrit are 10.3 and 30.8. White count and platelet count are within normal limit. ASSESSMENT: 1. History of cerebrovascular accident with residual right hemiplegia and expressive aphasia. 2. Seizure activity. 3. Hypertension. 4. Uncontrolled diabetes mellitus. 5. Staph-coagulase negative bacteremia. RECOMMENDATIONS: Continue current TPN and IV vancomycin. Oral pills are still on hold. including Zestril , glipizide, Keppra, Flomax, and Depakene. Nathan Sexton MD
[2018-05-31] MEDS: ROSUVASTATIN 5 MG PO SCH (21:25)
--- NOTE | 2018-05-31 22:06 | PN ---
DATE: 05/31/2018 SUBJECTIVE: The patient is aphasic but as soon as I went into the room, he started to verbalize much, and I do not know what he is asking for, but he seems stable. He did have yesterday, and he is on a lot of psych meds, which are being evaluated. They are being evaluated by Dr. Souleymane Ratliff and will be changed or modified. At this time, he remains on antibiotics. He is afebrile. PHYSICAL EXAMINATION: VITAL SIGNS: T-max is 98.9, pulse 91, blood pressure is 114/73, respirations are 20. HEENT: Head is atraumatic, normocephalic. He is aphasic. NECK: Supple. LUNGS: Clear at this time. HEART: S1, S2 are regular. ABDOMEN: Soft, nontender. No guarding, no rigidity present. NEUROLOGIC: He does have right hemiplegia. LABORATORY DATA: Labs are noted. Labs show white count is 9, hemoglobin 10.3, hematocrit 30.8, platelet count is 205. BUN is 26, creatinine is 1. He did have coagulase-negative staph in two sets, but it is thought as a contaminant because the repeat cultures were negative. IMPRESSION AND PLAN: So, he has been on antibiotics since 05/21/2018, almost 10 days. If he remains stable tomorrow and he is able to take orally medications over the weekend, I will change release manager to oral antibiotic. He is on Merrem and vancomycin. I think, he is taking all his oral antibiotics, it seems. So, I will switch to oral antibiotic over the weekend. Also, he needs to have adjustment of his psych medications as he is aphasic and he has the risk of aspiration. We will follow. Jenna Fine MD
--- NOTE | 2018-06-01 00:20 | CON ---
DATE: 05/31/2018 PSYCHIATRIC CONSULTATION NOTE: The patient is a very poor historian. The patient is aphasic. History of dementia and CVA. The patient's collateral information is taken from the staff as well as from the nurse on duty. The patient has expressive aphasia, but able to communicate with a communication board. He was reported by the nurse early duty that he was refusing his meds. The patient was referred for a possible evaluation and possible reduction of his psych meds. The patient is on multiple psych meds. HISTORY OF PRESENT ILLNESS: This is the case of 62-year-old male who came from home, was just admitted here for coughing with generalized weakness. The patient was recently discharged to the half-way with a history CVA, dementia, bipolar disorder, diabetes, hypertension, seizure, aspiration pneumonia. The patient was seen for possible evaluation. The patient is alert, but nonverbal secondary to aphasia from the stroke, but able to communicate by pointing in the communication board. He was asking some border. He was earlier to be refusing his medications. He has bouts of agitation. PAST PSYCHIATRIC HISTORY: History of dementia, most probably vascular type; I doubt if it is Alzheimer's. History of CVA with right-sided weakness, history of hypercholesterolemia, history of aspiration pneumonia and seizures. DRUG AND ALCOHOL HISTORY: Denies any as noted from the chart. PSYCHOSOCIAL HISTORY: He lives with his family. PHYSICAL EXAMINATION: VITAL SIGNS: Temperature is 97.2, pulse 85, blood pressure 124/80, respirations 20, oxygen saturation is 100%. REVIEW OF SYSTEMS: The patient is aphasic. He was in his room. He was able to point and tell the communication board that he wants some water because he feels thirsty and was pointing at the communication board he wants some water. Other than that, review of system cannot be fully assessed. When asked if he is in pain, the patient shakes his head. MENTAL STATUS EXAMINATION: An elderly male who looks his stated age, in his room restless. Mood is dysphoric. The patient is aphasic. Affect constricted with periods of confusion. No overt psychosis. No suicidal or homicidal ideation. Attention and memory seem to be impaired. Insight and judgment impaired. Impulse control is guarded at this time. LABORATORY DATA: Review of his labs: His BUN is 26, creatinine is 1, blood sugar is 265. His sodium level was 143 when he came in. IMPRESSION: History of dementia, most probably vascular type with behavioral problems as well as history of possible delirium secondary to dehydration. PLAN AND RECOMMENDATION: The patient seen. Meds reviewed. We will try to streamline his meds. The patient is 5 feet 9 inches and weighs 141 pounds. We will reduce his medication. We will continue his Depakote 250 mg b.i.d.; however, the patient also on Keppra 750 mg at bedtime. We will stop his trazodone which is 50 mg at bedtime. We will change the Seroquel to 200 mg at bedtime. We will discontinue the Risperdal 2 mg daily. The patient has seizure and the patient is taking multiple antipsychotics which can lower seizure threshold. Continue antibiotics as ordered. The patient also is on meropenem. We will monitor his behavior. We will try to streamline his meds. The patient's agitation could be secondary to his expressive aphasia which the patient has problems expressing his needs. I did ask the nurse to have the communication board placed at his bedside, so the patient can able to communicate his basic needs. For now, we will reduce his medication as the patient is taking a lot of medications. The patient has history of CVA. The patient does need two antipsychotics at this time which will increase his risk for recurrence of his CVA. Souleymane Ratliff MD [facility]
[2018-06-01] MEDS: Albuterol-Ipratrop 3 mg / 0.5 (3 ml) UD INH SCH ×3 (03:12→11:44)
[2018-06-01 06:24] LABS: BASO % 0.4 % (0.0-2.0); EOS # 0.4 K/uL (0.0-0.7); EOS % 4.2 % (0.0-4.0); HEMOGLOBIN 10.6 g/dL (12.0-18.0); LYMPH # 1.9 K/uL (1.0-4.3); LYMPH % 21.1 % (20.0-40.0); MEAN CELL VOLUME 80.5 fL (80.0-94.0); MEAN CORPUSCULAR HEMOGLOBIN 26.9 pg (27.0-31.0); MEAN CORPUSCULAR HGB CONC 33.4 g/dL (33.0-37.0); MEAN PLATELET VOLUME 10.2 fL (7.2-11.7); MONO # 0.4 K/uL (0.0-0.8); MONO % 4.9 % (0.0-10.0); NEUT # 6.3 K/uL (1.8-7.0); NEUT % 69.4 % (50.0-75.0); RBC 3.93 Mil/uL (4.40-5.90); RED CELL DISTRIBUTION WIDTH 13.5 % (11.5-14.5)
[2018-06-01 06:38] LABS: ALB/GLOB RATIO 1.2 (1.0-2.1); ALBUMIN 3.7 g/dL (3.5-5.0); ALT/SGPT 43 U/L (21-72); AST/SGOT 21 U/L (17-59); BLOOD UREA NITROGEN 22 mg/dL (9-20); CALCIUM 9.3 mg/dl (8.6-10.4); GFR AFRICAN-AMERICAN > 60; GFR NON-AFRICAN AMERICAN > 60
[2018-06-01] MEDS: Meropenem 1 GM in Sodium Chloride 0.9% 100 ML IVPB SCH (06:43)
[2018-06-01] MEDS: Pantoprazole 40 mg Susp UD PO SCH (12:13)
[2018-06-01] MEDS: (Novolin R) Insulin Human Regular 100 units/ml vial SC SCH ×2 (12:13→12:52)
[2018-06-01] MEDS: Promethazine 6.25 MG/5 ML CUP PO SCH ×2 (12:13→14:08)
[2018-06-01] MEDS: Silver Sulfadiazine 1% Cream (20 gm) TOP SCH (12:14)
[2018-06-01] MEDS: Valproic Acid 250 mg/5 ml UD Cup PO SCH (12:14)
--- NOTE | 2018-06-01 13:15 | CP.PCM.PN ---
Subjective - Date & Time of Evaluation Date of Evaluation: 06/01/18 Time of Evaluation: 01:00 - Subjective Subjective: dictated Objective - Vital Signs/Intake and Output Vital Signs (last 24 hours): Temp Pulse Resp BP Pulse Ox 98.1 F 93 H 20 110/72 97 05/31/18 23:50 05/31/18 23:50 05/31/18 23:50 05/31/18 23:50 05/31/18 23:50 Intake and Output: 06/01/18 06/01/18 06:59 18:59 Intake Total 586 Output Total 800 Balance -214 - Medications Medications: Current Medications Albuterol/Ipratropium (Duoneb 3 Mg/0.5 Mg (3 Ml) Ud) 3 ml INH RQ4 [facility] Last Admin: 06/01/18 11:44 Dose: Not Given Aspirin (Aspirin Chewable) 81 mg PO DAILY [facility] Last Admin: 06/01/18 12:12 Dose: 81 mg Glipizide (Glucotrol) 10 mg PO BID [facility] Last Admin: 06/01/18 12:13 Dose: 10 mg Vancomycin HCl 1,250 mg/ (Sodium Chloride) 250 mls @ 166.6 mls/hr IVPB DAILY [facility] PRN Reason: Protocol Last Admin: 06/01/18 12:14 Dose: 166.6 mls/hr Meropenem 1 gm/ Sodium (Chloride) 100 mls @ 100 mls/hr IVPB Q8 [facility] PRN Reason: Protocol Last Admin: 06/01/18 06:43 Dose: 100 mls/hr Multivitamins/Vitamin C 10 ml/Chromium/Copper/Manganese/Zinc 1 ml/ Amino Acids 1,011 mls @ 42 mls/hr IV .Q24H [facility] Stop: 06/01/18 17:59 Last Admin: 05/31/18 18:30 Dose: 42 mls/hr Fat Emulsion Intravenous (Intralipid 20%) 500 mls @ 46 mls/hr IV TTS@1800 [facility] Stop: 06/07/18 04:53 Multivitamins/Vitamin C 10 ml/Chromium/Copper/Manganese/Zinc 1 ml/ Amino Acids 1,011 mls @ 42 mls/hr IV .Q24H [facility] Stop: 06/02/18 17:59 Insulin Human Regular (Novolin R) 0 unit SC ACHS [facility] PRN Reason: Protocol Last Admin: 06/01/18 12:52 Dose: 1 unit Levetiracetam (Keppra) 750 mg PO BID [facility] Last Admin: 06/01/18 12:12 Dose: 750 mg Lisinopril (Zestril) 5 mg PO DAILY [facility] Last Admin: 06/01/18 12:12 Dose: 5 mg Pantoprazole Sodium (Protonix Susp) 40 mg PO DAILY [facility] Last Admin: 06/01/18 12:13 Dose: 40 mg Promethazine HCl (Phenergan Syrup) 6.25 mg PO TID [facility] Last Admin: 06/01/18 12:13 Dose: 6.25 mg Quetiapine Fumarate (Seroquel) 200 mg PO HS [facility] Last Admin: 05/31/18 21:25 Dose: 200 mg Rosuvastatin Calcium (Crestor) 5 mg PO HS [facility] Last Admin: 05/31/18 21:25 Dose: 5 mg Silver Sulfadiazine (Silvadene 1% 20 Gm) 0 ea TOP BID [facility] Last Admin: 06/01/18 12:14 Dose: 1 applic Tamsulosin HCl (Flomax) 0.4 mg PO DAILY [facility] Last Admin: 06/01/18 12:13 Dose: 0.4 mg Valproate Sodium (Depakene Oral Soln) 250 mg PO BID [facility] Last Admin: 06/01/18 12:14 Dose: 250 mg - Labs Labs: 06/01/18 06:17 06/01/18 06:17
[2018-06-01] MEDS ORDERED: Cefpodoxime (Vantin) 200 mg Tab PO SCH ×2 (14:30→18:00)
--- NOTE | 2018-06-01 15:01 | CP.PCM.PN ---
Subjective - Date & Time of Evaluation Date of Evaluation: 06/01/18 Time of Evaluation: 10:30 - Subjective Subjective: clinically same Objective - Vital Signs/Intake and Output Vital Signs (last 24 hours): Temp Pulse Resp BP Pulse Ox 98.1 F 93 H 20 110/72 97 05/31/18 23:50 05/31/18 23:50 05/31/18 23:50 05/31/18 23:50 05/31/18 23:50 Intake and Output: 06/01/18 06/01/18 06:59 18:59 Intake Total 586 Output Total 800 Balance -214 - Medications Medications: Current Medications Aspirin (Aspirin Chewable) 81 mg PO DAILY [facility] Last Admin: 06/01/18 12:12 Dose: 81 mg Cefpodoxime Proxetil (Vantin) 200 mg PO Q12H [facility] PRN Reason: Protocol Glipizide (Glucotrol) 10 mg PO BID [facility] Last Admin: 06/01/18 12:13 Dose: 10 mg Multivitamins/Vitamin C 10 ml/Chromium/Copper/Manganese/Zinc 1 ml/ Amino Acids 1,011 mls @ 42 mls/hr IV .Q24H [facility] Stop: 06/01/18 17:59 Last Admin: 05/31/18 18:30 Dose: 42 mls/hr Fat Emulsion Intravenous (Intralipid 20%) 500 mls @ 46 mls/hr IV TTS@1800 [facility] Stop: 06/07/18 04:53 Insulin Human Regular (Novolin R) 0 unit SC ACHS [facility] PRN Reason: Protocol Last Admin: 06/01/18 12:52 Dose: 1 unit Levetiracetam (Keppra) 750 mg PO BID [facility] Last Admin: 06/01/18 12:12 Dose: 750 mg Lisinopril (Zestril) 5 mg PO DAILY [facility] Last Admin: 06/01/18 12:12 Dose: 5 mg Pantoprazole Sodium (Protonix Susp) 40 mg PO DAILY [facility] Last Admin: 06/01/18 12:13 Dose: 40 mg Promethazine HCl (Phenergan Syrup) 6.25 mg PO TID [facility] Last Admin: 06/01/18 14:08 Dose: Not Given Quetiapine Fumarate (Seroquel) 200 mg PO HS [facility] Last Admin: 05/31/18 21:25 Dose: 200 mg Rosuvastatin Calcium (Crestor) 5 mg PO HS [facility] Last Admin: 05/31/18 21:25 Dose: 5 mg Silver Sulfadiazine (Silvadene 1% 20 Gm) 0 ea TOP BID [facility] Last Admin: 06/01/18 12:14 Dose: 1 applic Tamsulosin HCl (Flomax) 0.4 mg PO DAILY [facility] Last Admin: 06/01/18 12:13 Dose: 0.4 mg Valproate Sodium (Depakene Oral Soln) 250 mg PO BID [facility] Last Admin: 06/01/18 12:14 Dose: 250 mg - Labs Labs: 06/01/18 06:17 06/01/18 06:17 - Constitutional Appears: Well - Head Exam Head Exam: ATRAUMATIC, NORMAL INSPECTION, NORMOCEPHALIC - Eye Exam Eye Exam: EOMI, Normal appearance, PERRL Pupil Exam: NORMAL ACCOMODATION, PERRL - ENT Exam ENT Exam: Mucous Membranes Moist, Normal Exam - Neck Exam Neck Exam: Full ROM, Normal Inspection. absent: Lymphadenopathy - Respiratory Exam Respiratory Exam: Decreased Breath Sounds - Cardiovascular Exam Cardiovascular Exam: REGULAR RHYTHM, +S1, +S2 - GI/Abdominal Exam GI & Abdominal Exam: Soft, Diminished Bowel Sounds - Rectal Exam Rectal Exam: Deferred
[2018-06-01 15:51] VITALS: BP 111/73; PULSE 92; TEMP 98.5; O2SAT 100
--- NOTE | 2018-06-01 16:05 | CP.PCM.PN ---
Subjective - Date & Time of Evaluation Date of Evaluation: 06/01/18 Time of Evaluation: 12:10 - Subjective Subjective: MICROCHIP SPECIALIST NOTES patient seen today, awake, alert, aphasic , NAD No overnight events reported by RN Objective - Vital Signs/Intake and Output Vital Signs (last 24 hours): Temp Pulse Resp BP Pulse Ox 98.5 F 92 H 20 111/73 100 06/01/18 15:12 06/01/18 15:12 06/01/18 15:12 06/01/18 15:12 06/01/18 15:12 Intake and Output: 06/01/18 06/01/18 06:59 18:59 Intake Total 586 Output Total 800 Balance -214 - Medications Medications: Current Medications Aspirin (Aspirin Chewable) 81 mg PO DAILY [facility] Last Admin: 06/01/18 12:12 Dose: 81 mg Cefpodoxime Proxetil (Vantin) 200 mg PO Q12H [facility] PRN Reason: Protocol Glipizide (Glucotrol) 10 mg PO BID [facility] Last Admin: 06/01/18 12:13 Dose: 10 mg Multivitamins/Vitamin C 10 ml/Chromium/Copper/Manganese/Zinc 1 ml/ Amino Acids 1,011 mls @ 42 mls/hr IV .Q24H [facility] Stop: 06/01/18 17:59 Last Admin: 05/31/18 18:30 Dose: 42 mls/hr Fat Emulsion Intravenous (Intralipid 20%) 500 mls @ 46 mls/hr IV TTS@1800 [facility] Stop: 06/07/18 04:53 Insulin Human Regular (Novolin R) 0 unit SC [facility] PRN Reason: Protocol Last Admin: 06/01/18 12:52 Dose: 1 unit Levetiracetam (Keppra) 750 mg PO BID [facility] Last Admin: 06/01/18 12:12 Dose: 750 mg Lisinopril (Zestril) 5 mg PO DAILY [facility] Last Admin: 06/01/18 12:12 Dose: 5 mg Pantoprazole Sodium (Protonix Susp) 40 mg PO DAILY [facility] Last Admin: 06/01/18 12:13 Dose: 40 mg Promethazine HCl (Phenergan Syrup) 6.25 mg PO TID [facility] Last Admin: 06/01/18 14:08 Dose: Not Given Quetiapine Fumarate (Seroquel) 200 mg PO HS [facility] Last Admin: 05/31/18 21:25 Dose: 200 mg Rosuvastatin Calcium (Crestor) 5 mg PO HS [facility] Last Admin: 05/31/18 21:25 Dose: 5 mg Silver Sulfadiazine (Silvadene 1% 20 Gm) 0 ea TOP BID [facility] Last Admin: 06/01/18 12:14 Dose: 1 applic Tamsulosin HCl (Flomax) 0.4 mg PO DAILY [facility] Last Admin: 06/01/18 12:13 Dose: 0.4 mg Valproate Sodium (Depakene Oral Soln) 250 mg PO BID [facility] Last Admin: 06/01/18 12:14 Dose: 250 mg - Labs Labs: 06/01/18 06:17 06/01/18 06:17 Assessment and Plan - Assessment and Plan (Free Text) Assessment: A/P 62 yr old male with PMHx of CVA, dementia, bipolar disorder, DM, HTN, hyperlipidemia, seizure disorder, aspiration pneumonia presented to [facility] ER for evaluation of cough, fever, generalized weakness. BC- + for coag staph patient started on merrun and vanco , clinically improved swallow eval done and tolerating purre diet with nectar thick liquid repeat blood culture negative x [address] Monk , cleared for discharge home otday and f/u with Dr. Mary bloom office next week d/w Dr. Salguero continue with vantin x 5 more days RX e prescribed to pharmacy- as per daughter he has all medications at home
--- NOTE | 2018-06-01 17:00 | PN ---
DATE: 06/01/2018 SUBJECTIVE: The patient is still aphasic, but more alert and verbal with the reduction of his psych medications. Today, he is more cooperative and was pointing to his tray expressing desire to eat. The patient is able to communicate with signals. He is reluctant to use the communication board. He seems to be much better with the reduction of meds. PHYSICAL EXAMINATION: VITAL SIGNS: Temperature is 98.1, pulse rate is 93, blood pressure 110/70, respirations 20, and oxygen saturations 97%. REVIEW OF SYSTEMS: CONSTITUTIONAL: He is more alert, verbal, able to communicate with signals. Staff reports that he has been very sleepy in the morning, but when his meds were reduced, he is much better. He is eating better. SKIN: No pruritus. HEENT: No headaches. NECK: Supple. RESPIRATORY: In no acute respiratory distress. GASTROINTESTINAL: He is eating better. EXTREMITIES: The patient is moving extremities. MENTAL STATUS: An elderly male of descent, alert, but aphasic. Mood is brighter. Affect is restricted. Thought process, still has periods of confusion. Thought content, no overt psychosis. No suicidal or homicidal ideation. Attention and memory seem to be limited. Insight and judgment are limited. Impulse control is improving at this time. IMPRESSION: Mood disorder secondary to medical problems as well as history of dementia, most probably vascular type with possible delirium secondary to dehydration. PLAN AND RECOMMENDATIONS: The patient is seen, meds reviewed. Continue present psych meds. The patient is doing better with recent readjustment of his psych meds. Psych luis, he can go to his family who was going to take care of him. Souleymane Ratliff MD [facility]
[2018-06-01] MEDS ORDERED: Fat Emulsion 20% IV 500 ML IV SCH (18:00)
[2018-06-01] MEDS ORDERED: PPN #8 IV ONE (18:00)
--- NOTE | 2018-06-01 18:19 | PN ---
DATE: 06/01/2018 SUBJECTIVE: The patient is aphasic. He looks good. He has no fever. PHYSICAL EXAMINATION: VITAL SIGNS: T-max is 98.1, pulse 93, blood pressure 110/72, respirations are 20. HEENT: Head is atraumatic and normocephalic. NECK: Supple. LUNGS: Clear. HEART: S1 and S2 regular. ABDOMEN: Soft, nontender. No guarding. No rigidity present. NEUROLOGIC: He has right hemiplegia and he has dressing on the right shoulder. [facility] LABORATORY DATA: The patient's white count is 9, hemoglobin 10.6, hematocrit 31.6, platelet count is 202. BUN is 22, creatinine 0.9 at this time. ASSESSMENT AND PLAN: He has received 10 days of antibiotics here and he is probably going home. We will send him home on Vantin 200 mg b.i.d. and as I am told that he will be going home and he needs to be followed up for an aspiration precaution and that will be my recommendation at this time. The patient is obviously at risk for aspiration and need to be monitored closely when being fed. The patient has pneumonia and urinary retention. He also has dysphagia and he has old cerebrovascular accident. Jenna Fine MD
--- NOTE | 2018-06-01 23:09 | PN ---
DATE: 06/01/2018 SUBJECTIVE: According to the nurse, this patient is able to swallow puree diet without any difficulty. TPN will be discontinued. PHYSICAL EXAMINATION: VITAL SIGNS: Blood pressure 111/73, heart rate 92, temperature 98.5, respirations 20. HEENT: Pale conjunctivae. CHEST: Clear. HEART: S1, S2 regular. EXTREMITIES: No edema. LABORATORY DATA: Today's SMA-7 is within normal limits except glucose 112, BUN of 22. Today's hemoglobin and hematocrit 10.6 and 31.6. White count and platelet count are within normal limits. ASSESSMENT: 1. Status post aspiration. 2. History of cerebrovascular accident with residual right hemiparesis and expressive aphasia. 3. Hypertension. 4. Hyperlipidemia. 5. Seizure disorder. RECOMMENDATIONS: Continue aspirin 81 mg once a day, Crestor 5 mg once a day, Depakene oral solution 250 mg twice a day, Glipizide 10 mg twice a day, Keppra 750 mg twice a day, Seroquel 200 mg at bedtime, Protonix 40 mg p.o. once a day, Vantin 200 mg twice a day via gastrostomy tube, Zestril 5 mg daily. No further cardiac workup, and the plan is to discharge the patient to home today. Nathan Sexton MD
== END 2018-06-01 18:00 | disposition home or self-care (01) | DRG 871 ==
LOC: C.ER 06:41 → C.9E 09:02 → C.6T 15:19
PROVIDERS: ADMIT Internal Medicine Nephrology; ATTEND Internal Medicine Nephrology
PROC: 0T9B70Z Drainage of Bladder with Drainage Device, Via Natural or Artificial Opening (ICD-10-PCS; principal; 2018-05-24)
DX: A41.1 Sepsis due to other specified staphylococcus (principal); J69.0 Pneumonitis due to inhalation of food and vomit; I69.351 Hemiplegia and hemiparesis following cerebral infarction affecting right dominant side; D68.9 Coagulation defect, unspecified; F02.81 Dementia in other diseases classified elsewhere, unspecified severity, with behavioral disturbance; M62.82 Rhabdomyolysis; N39.0 Urinary tract infection, site not specified; I69.320 Aphasia following cerebral infarction; D64.9 Anemia, unspecified; D69.6 Thrombocytopenia, unspecified; E11.22 Type 2 diabetes mellitus with diabetic chronic kidney disease; E86.0 Dehydration; E87.5 Hyperkalemia; G30.9 Alzheimer's disease, unspecified; G40.909 Epilepsy, unspecified, not intractable, without status epilepticus; F31.9 Bipolar disorder, unspecified; F41.9 Anxiety disorder, unspecified; G89.29 Other chronic pain; I12.9 Hypertensive chronic kidney disease with stage 1 through stage 4 chronic kidney disease, or unspecified chronic kidney disease; N18.9 Chronic kidney disease, unspecified; Z87.891 Personal history of nicotine dependence; Z74.01 Bed confinement status; Z87.01 Personal history of pneumonia (recurrent); N32.0 Bladder-neck obstruction; K21.9 Gastro-esophageal reflux disease without esophagitis; I69.391 Dysphagia following cerebral infarction; R13.10 Dysphagia, unspecified; M19.90 Unspecified osteoarthritis, unspecified site; N40.0 Benign prostatic hyperplasia without lower urinary tract symptoms

== ENCOUNTER 2018-11-03 16:18 | Inpatient (IN) | payer MEDICARE, MEDICAID ==
--- NOTE | 2018-11-03 16:42 | C.PDOC ---
History Of Present Illness 63-year-old male with a history of paraplegia and respiratory presents to the ED via EMS from the long term for evaluation of respiratory failure. Patient was intubated by EMS secondary to respiratory failure. Per EMS, in the long term the patient was found by a nurse with shortness of breath and lethargic. PMD Dr. Omar Urbina, suspected aspiration pneumonia. Patient is unresponsive in the ED. Time Seen by Provider: 11/03/18 16:20 Chief Complaint (Nursing): Respiratory Distress History Per: Patient History/Exam Limitations: no limitations Onset/Duration Of Symptoms: Other (prior to arrival. ) Current Symptoms Are (Timing): Still Present Recent travel outside of the [place]: No Past Medical History Reviewed: Historical Data, Nursing Documentation, Vital Signs Vital Signs: Last Vital Signs Temp Pulse 139 H 11/03/18 16:23 Resp 13 11/03/18 16:23 BP 89/62 L 11/03/18 16:23 Pulse Ox 100 11/03/18 16:23 - Medical History PMH: Alzheimer's Disease, Anxiety, Arthritis, Bipolar Disorder, CVA, Dementia, Depression, Diabetes, Fractures (non displaced avulsion fracture of right talus) , HTN, Hypercholesterolemia, Pneumonia (Aspiration), Seizures Denies: Chronic Kidney Disease Surgical History: Appendectomy - [facility] Procedures ASSISTANCE WITH RESPIRATORY VENTILATION, >96 HRS, CPAP (07/25/17) DRAINAGE OF BLADDER WITH DRAINAGE DEVICE, VIA OPENING (05/21/18) INSERTION OF ENDOTRACHEAL AIRWAY INTO TRACHEA, ENDO (07/24/18) INSERTION OF INFUSION DEV INTO SUP VENA CAVA, PERC APPROACH (07/24/18) MEASUREMENT OF URINARY PRESSURE, VIA OPENING (01/17/17) PSYCHIA INTERV/EVAL NEC (08/24/14) RESECTION OF PROSTATE, ENDO (01/17/17) RESPIRATORY VENTILATION, GREATER THAN 96 CONSECUTIVE HOURS (07/24/18) TRANSFUSE NONAUT PLATELETS IN PERIPH VEIN, PERC (07/24/18) TRANSFUSE NONAUT RED BLOOD CELLS IN PERIPH VEIN, PERC (07/24/18) Family History: States: Unknown Family Hx - Social History Hx Tobacco Use: No Hx Alcohol Use: No Hx Substance Use: No - Immunization History Hx Tetanus Toxoid Vaccination: No Hx Influenza Vaccination: No Hx Pneumococcal Vaccination: No Review Of Systems Review Of Systems: ROS cannot be obtained secondary to pt's inabilty to answer questions. (patient is unresponsive secondary to respiratory failure.) Respiratory: Positive for: Other (respiratory failure. ) Physical Exam - Physical Exam Appears: Other (moderate distress. ) Skin: Normal Color, Warm, Dry Head: Atraumatic, Normacephalic Eye(s): bilateral: Other (pinpoint pupils 1mm.) Chest: Symmetrical, No Deformity Cardiovascular: Rhythm Regular, No Murmur, Other (tachycardia.) Gastrointestinal/Abdominal: Normal Exam, Soft Neurological/Psych: Other (unresponsive. ) ED Course And Treatment - Laboratory Results Result Diagrams: 11/03/18 16:59 11/03/18 16:59 O2 Sat by Pulse Oximetry: 100 (RA) Pulse Ox Interpretation: Normal Procedure: Blank - Consent obtained: Consent obtained: Verbal - Performed by: Performed by:: Attending physician - Topical: Local/Regional Anesthetic:: Lidocaine 1% - Description Discription of Procedure: 11/03/18 (Right femoral vein triple lumen inserted over wire, wire moved, blood returned in all ports and flushed with normal saline, sterile dressing applied. ) - Patient Tolerated Procedure Patient Tolerated Procedure:: Well Medical Decision Making Medical Decision Making: Plan: -Blood sent. -CXR Portable -Blood culture. -Urine culture. -Urinalysis. -Procalcitonin serum Progress/Update: 5:34pm : Spoke with Dr. Trevizo regarding the patients case who accepted the patient for consult, recommended fentanyl drip. Dr. Omar Urbina has agreed to admit the patient to ICU. Disposition - Disposition Disposition: HOSPITALIZED Disposition Time: 17:47 Condition: SERIOUS - Clinical Impression Clinical Impression: Respiratory failure, Pneumonia, Sepsis - Scribe Statement The provider has reviewed the documentation as recorded by the Scribe (Meera Mina) Provider Attestation: All medical record entries made by the Scribe were at my direction and personally dictated by me. I have reviewed the chart and agree that the record accurately reflects my personal performance of the history, physical exam, medical decision making, and the department course for this patient. I have also personally directed, reviewed, and agree with the discharge instructions and disposition. Decision To Admit - Pt Status Changed To: Hospital Disposition Of: Inpatient - Admit Certification Admit to Inpatient:: After my assessment, the patient will require hospitalization for at least two midnights. This is because of the severity of symptoms shown, intensity of services needed, and/or the medical risk in this patient being treated as an outpatient. - InPatient: Physician Admission Certification: I certify that this patient requires 2 or more midnights of care for the following reason:: Intubated - . Bed Request Type: ICU Admitting Physician: Bahman Urbina Patient Diagnosis: Respiratory failure, Pneumonia, Sepsis
[2018-11-03 16:54] LABS: ABG ALLEN TEST POS; ARTERIAL BLOOD GAS O2 SAT 97.5 % (95-98); ARTERIAL BLOOD GAS PCO2 72 mm/Hg (35-45); ARTERIAL BLOOD GAS PH 7.24 (7.35-7.45); ARTERIAL BLOOD GAS PO2 100 mm/Hg (80-100); ARTERIAL BLOOD GAS TCO2 33.1 mmol/L (22-28)
[2018-11-03] MEDS ORDERED: Piperacillin/Tazobact 3.375 GM in Sodium Chloride 100 ML IVPB STA (17:00)
[2018-11-03 17:02] LABS: BASO % 0.2 % (0.0-2.0); HEMOGLOBIN 7.9 g/dL (12.0-18.0); LYMPH # 0.5 K/uL (1.0-4.3); LYMPH % 5.1 % (20.0-40.0); MEAN CELL VOLUME 79.3 fL (80.0-94.0); MEAN CORPUSCULAR HEMOGLOBIN 23.8 pg (27.0-31.0); MEAN PLATELET VOLUME 9.4 fL (7.2-11.7); MONO # 0.4 K/uL (0.0-0.8); MONO % 4.1 % (0.0-10.0); NEUT # 9.5 K/uL (1.8-7.0); NEUT % 90.6 % (50.0-75.0); PLATELET COUNT 272 K/uL (130-400); RBC 3.32 Mil/uL (4.40-5.90); RED CELL DISTRIBUTION WIDTH 19.5 % (11.5-14.5); WHITE BLOOD COUNT 10.5 K/uL (4.8-10.8)
[2018-11-03] MEDS ORDERED: Lactated Ringer's 2,000 ML ONE (17:09)
[2018-11-03 17:16] LABS: INR 1.7; PROTHROMBIN TIME 18.1 SECONDS (9.7-12.2)
[2018-11-03] MEDS ORDERED: Moxifloxacin IV 400mg/250ml NS 400 MG/250 ML BAG IVPB ONE ×2 (17:20→17:40)
[2018-11-03 17:23] LABS: ALB/GLOB RATIO 0.6 (1.0-2.1); ALBUMIN 2.5 g/dL (3.5-5.0); CALCIUM 8.2 mg/dl (8.6-10.4)
--- NOTE | 2018-11-03 17:31 | RAD ---
Date of service: 11/03/2018 HISTORY: Sepsis Patient COMPARISON: Comparison is made with 08/09/2018 FINDINGS: LUNGS: Again noted are patchy nodular opacities in the lungs more prominent at the mid and lower portion. The ET tube is seen at appropriate position. PLEURA: No significant pleural effusion identified, no pneumothorax apparent. CARDIOVASCULAR: No aortic atherosclerotic calcification present. Normal cardiac size. No pulmonary vascular congestion. OSSEOUS STRUCTURES: No significant abnormalities. VISUALIZED UPPER ABDOMEN: Distended stomach and bowel in the upper abdomen noted. OTHER FINDINGS: None. IMPRESSION: No significant interval changes noted in the lungs. Appropriate position of the ETT.
[2018-11-03 17:33] LABS: TROPONIN I 0.042 ng/mL (0.00-0.120)
[2018-11-03] MEDS ORDERED: Piperacillin/Tazobact 3.375 gm 100 ML IVPB ONE (17:40)
[2018-11-03] MEDS: Lactated Ringer's 1,000 ML IV SCH ×2 (17:46→20:00)
[2018-11-03 17:51] LABS: URINE BACTERIA RARE (<OCC); URINE BILIRUBIN NEGATIVE (NEGATIVE); URINE BLOOD 1+ (NEGATIVE); URINE CLARITY Hazy (Clear); URINE COLOR Amber (YELLOW); URINE GLUCOSE (UA) 1+ mg/dL (Normal); URINE HYALINE CAST >20 /lpf (0-2); URINE LEUKOCYTE ESTERASE TRACE Leu/uL (Negative); URINE PROTEIN 2+ mg/dL (NEGATIVE); URINE UROBILINOGEN NORMAL mg/dL (0.2-1.0)
[2018-11-03 18:07] LABS: PLATELET ESTIMATE NORMAL (NORMAL)
[2018-11-03 18:21] LABS: BANDS 24 % (0-2); LYMPHOCYTE 12 % (20-40); MONOCYTE 5 % (0-10); NEUTROPHIL 56 % (50-75); REACTIVE LYMPHOCYTES 3 % (0-0); TOTAL CELLS COUNTED 100
[2018-11-03 18:22] LABS: ANISOCYTOSIS SLIGHT; MICROCYTOSIS SLIGHT; POIKILOCYTOSIS SLIGHT
[2018-11-03 18:23] LABS: SMUDGE CELLS PRESENT; SPHEROCYTES SLIGHT; TARGET CELLS SLIGHT
[2018-11-03 18:24] LABS: HYPERSEGMENTATION PRESENT; LARGE PLATELETS PRESENT; TOXIC GRANULATION PRESENT
[2018-11-03] MEDS ORDERED: Lactated Ringer's 1,000 ML IV ONE (18:35)
[2018-11-03 19:59] LABS: VENOUS BLOOD GAS BASE EXCESS 0.2 mmol/L (0.0-2.0); VENOUS BLOOD GAS PCO2 51 mmHg (40-60); VENOUS BLOOD GAS PO2 38 mm/Hg (30-55); VENOUS BLOOD PH 7.33 (7.32-7.43)
--- NOTE | 2018-11-03 20:39 | CP.PCM.CON ---
History of Present Illness - History of Present Illness History of Present Illness: 63-year-old male with a history of paraplegia ,Alzheimer's Disease, Anxiety, Arthritis, Bipolar Disorder, CVA, Diabetes, HTN, Hypercholesterolemia, Pneumonia (Aspiration), Seizures admitted with respiratory failure. Patient was intubated by EMS. Per EMS, in the intermediate the patient was found by a nurse with shortness of breath and lethargic. PMD Dr. Omar Urbina, suspected aspiration pneumonia. Patient is unresponsive in the ED. no further history available Review of Systems - Review of Systems Review of Systems: patient intubated,no response to verbal stimuli. Past Patient History - Infectious Disease Hx of Infectious Diseases: None - Past Medical History & Family History Past Medical History?: Yes - Past Social History Smoking Status: Never Smoked Home Situation {Lives}: Usp - CARDIAC Hx Hypercholesterolemia: Yes Hx Hypertension: Yes - PULMONARY Hx Pneumonia: Yes (Aspiration) - NEUROLOGICAL Hx Alzheimer's Disease: Yes Hx Dementia: Yes Hx Seizures: Yes - HEENT Hx HEENT Problems: Yes Hx Cataracts: Yes (Both Cataract Surgery) - RENAL Hx Chronic Kidney Disease: No - ENDOCRINE/METABOLIC Hx Endocrine Disorders: Yes Hx Diabetes Mellitus Type 2: Yes - HEMATOLOGICAL/ONCOLOGICAL Hx Blood Disorders: No - INTEGUMENTARY Hx Dermatological Problems: No - MUSCULOSKELETAL/RHEUMATOLOGICAL Hx Arthritis: Yes Hx Fractures: Yes (non displaced avulsion fracture of right talus) - GASTROINTESTINAL Hx Gastrointestinal Disorders: Yes Hx Gastroesophageal Reflux: Yes - GENITOURINARY/GYNECOLOGICAL Hx Genitourinary Disorders: Yes Hx Prostate Problems: Yes (BPH) - PSYCHIATRIC Hx Anxiety: Yes Hx Bipolar Disorder: Yes Hx Depression: Yes Hx Substance Use: No - SURGICAL HISTORY Hx Appendectomy: Yes - ANESTHESIA Hx Anesthesia: Yes Hx Anesthesia Reactions: No Hx Malignant Hyperthermia: No Meds Allergies/Adverse Reactions: Allergies Allergy/AdvReac Type Severity Reaction Status Date / Time No Known Allergies Allergy Verified 11/03/18 16:30 - Medications Medications: Current Medications Fentanyl Citrate 2,500 mcg/ (Sodium Chloride) 250 mls @ 10.89 mls/hr IV .[id number] [facility]; Protocol Last Admin: 11/03/18 18:21 Dose: 2 mcg/kg/hr, 10.89 mls/hr Lactated Ringer's (Lactated Ringer's) 1,000 mls @ 100 mls/hr IV .Q10H [facility] Last Admin: 11/03/18 17:46 Dose: 100 mls/hr Physical Exam - Constitutional Appears: Older Than Stated Age Additional comments: orally intubated,emaciated - Head Exam Head Exam: ATRAUMATIC, NORMAL INSPECTION, NORMOCEPHALIC - Eye Exam Eye Exam: absent: Conjunctival injection, Scleral icterus Additional comments: pupils equal with sluggish response to light - ENT Exam ENT Exam: Mucous Membranes Dry, Normal External Ear Exam - Neck Exam Neck exam: Positive for: Normal Inspection - Respiratory Exam Respiratory Exam: Clear to Auscultation Bilateral. absent: Stridor - Cardiovascular Exam Cardiovascular Exam: Tachycardia. absent: JVD - GI/Abdominal Exam GI & Abdominal Exam: Normal Bowel Sounds, Soft Additional comments: Right groin TLC - Extremities Exam Extremities exam: Negative for: pedal edema Additional comments: PICC line right arm - Neurological Exam Additional comments: occassional movement of extremitie,no response to verbal or painful stimuli - Skin Skin Exam: Pallor, Warm Additional comments: right hel decubitus Results - Vital Signs Recent Vital Signs: Last Vital Signs Temp 102.8 F H 11/03/18 17:57 Pulse 106 H 11/03/18 18:57 Resp 28 H 11/03/18 18:57 BP 92/62 L 11/03/18 18:57 Pulse Ox 100 11/03/18 19:05 - Labs Result Diagrams: 11/03/18 16:59 11/03/18 16:59 Labs: Laboratory Results - last 24 hr 11/03/18 11/03/18 11/03/18 16:45 16:59 16:59 WBC 10.5 RBC 3.32 L Hgb 7.9 L Hct 26.3 L MCV 79.3 L D MCH 23.8 L MCHC 30.0 L RDW 19.5 H Plt Count 272 MPV 9.4 Neut % (Auto) 90.6 H Lymph % (Auto) 5.1 L [place] % (Auto) 4.1 Eos % (Auto) 0.0 Baso % (Auto) 0.2 Neut # (Auto) 9.5 H Lymph # (Auto) 0.5 L [place] # (Auto) 0.4 Eos # (Auto) 0.0 Baso # (Auto) 0.0 Neutrophils % (Manual) 56 Band Neutrophils % 24 H* Lymphocytes % (Manual) 12 L Reactive Lymphs % 3 H Monocytes % (Manual) 5 Hypersegmented Polys Present Smudge Cells Present Toxic Granulation Present Platelet Estimate Normal Large Platelets Present Poikilocytosis (manual Slight Anisocytosis (manual) Slight Microcytosis (manual) Slight Spherocytes Slight Target Cells Slight PT 18.1 H INR 1.7 APTT 46 H Puncture Site Rradial pCO2 72 H* pO2 100 HCO3 26.0 ABG pH 7.24 L ABG Total CO2 33.1 H ABG O2 Saturation 97.5 ABG Base Excess 1.4 Ruiz Test Pos ABG Potassium 5.2 VBG pH VBG pCO2 VBG HCO3 VBG Total CO2 VBG O2 Sat (Calc) VBG Base Excess VBG Potassium A-a O2 Difference 523.0 Respiratory Index 5.2 Sodium 151.0 H Chloride 116.0 H Glucose 357 H Lactate 2.3 H Vent Mode Prvc Mechanical Rate 14 FiO2 100.0 Tidal Volume 500 PEEP 5 Crit Value Called To Dr. young Crit Value Called By Aracely rahman rcp Crit Value Read Back Y Blood Gas Notified Time 1654 Potassium Carbon Dioxide Anion Gap BUN Creatinine Est GFR ( Amer) Est GFR (Non-Af Amer) Random Glucose Calcium Phosphorus Magnesium Total Bilirubin AST ALT Alkaline Phosphatase Troponin I Total Protein Albumin Globulin Albumin/Globulin Ratio Procalcitonin Arterial Blood Potassium 5.2 Venous Blood Potassium Urine Color Urine Clarity Urine pH Ur Specific Perry Urine Protein Urine Glucose (UA) Urine Ketones Urine Blood Urine Nitrate Urine Bilirubin Urine Urobilinogen Ur Leukocyte Esterase Urine WBC (Auto) Urine RBC (Auto) Urine Bacteria Hyaline Casts Urine Yeast (Budding) 11/03/18 11/03/18 11/03/18 16:59 17:21 17:31 WBC RBC Hgb Hct MCV MCH MCHC RDW Plt Count MPV Neut % (Auto) Lymph % (Auto) [place] % (Auto) Eos % (Auto) Baso % (Auto) Neut # (Auto) Lymph # (Auto) [place] # (Auto) Eos # (Auto) Baso # (Auto) Neutrophils % (Manual) Band Neutrophils % Lymphocytes % (Manual) Reactive Lymphs % Monocytes % (Manual) Hypersegmented Polys Smudge Cells Toxic Granulation Platelet Estimate Large Platelets Poikilocytosis (manual Anisocytosis (manual) Microcytosis (manual) Spherocytes Target Cells PT INR APTT Puncture Site pCO2 pO2 HCO3 ABG pH ABG Total CO2 ABG O2 Saturation ABG Base Excess Ruiz Test ABG Potassium VBG pH VBG pCO2 VBG HCO3 VBG Total CO2 VBG O2 Sat (Calc) VBG Base Excess VBG Potassium A-a O2 Difference Respiratory Index Sodium 146 Chloride 112 H Glucose Lactate Vent Mode Mechanical Rate FiO2 Tidal Volume PEEP Crit Value Called To Crit Value Called By Crit Value Read Back Blood Gas Notified Time Potassium 5.3 H Carbon Dioxide 26 Anion Gap 13 BUN 49 H Creatinine 1.6 H Est GFR ( Amer) 53 Est GFR (Non-Af Amer) 44 Random Glucose 349 H Calcium 8.2 L Phosphorus 5.6 H Magnesium 2.0 Total Bilirubin 0.2 AST 29 ALT 17 L D Alkaline Phosphatase 105 Troponin I 0.0420 Total Protein 6.8 Albumin 2.5 L Globulin 4.2 H Albumin/Globulin Ratio 0.6 L Procalcitonin 14.93 H Arterial Blood Potassium Venous Blood Potassium Urine Color Carol Ann Urine Clarity Hazy Urine pH 5.0 Ur Specific Perry 1.025 Urine Protein 2+ H Urine Glucose (UA) 1+ H Urine Ketones Trace Urine Blood 1+ H Urine Nitrate Negative Urine Bilirubin Negative Urine Urobilinogen Normal Ur Leukocyte Esterase Trace Urine WBC (Auto) 12 H Urine RBC (Auto) 17 H Urine Bacteria Rare Hyaline Casts >20 H Urine Yeast (Budding) Occ H 11/03/18 19:55 WBC RBC Hgb Hct MCV MCH MCHC RDW Plt Count MPV Neut % (Auto) Lymph % (Auto) [place] % (Auto) Eos % (Auto) Baso % (Auto) Neut # (Auto) Lymph # (Auto) [place] # (Auto) Eos # (Auto) Baso # (Auto) Neutrophils % (Manual) Band Neutrophils % Lymphocytes % (Manual) Reactive Lymphs % Monocytes % (Manual) Hypersegmented Polys Smudge Cells Toxic Granulation Platelet Estimate Large Platelets Poikilocytosis (manual Anisocytosis (manual) Microcytosis (manual) Spherocytes Target Cells PT INR APTT Puncture Site pCO2 pO2 38 HCO3 ABG pH ABG Total CO2 ABG O2 Saturation ABG Base Excess Ruiz Test ABG Potassium VBG pH 7.33 VBG pCO2 51 VBG HCO3 24.3 VBG Total CO2 28.5 H VBG O2 Sat (Calc) 66.4 H VBG Base Excess 0.2 VBG Potassium 5.3 H A-a O2 Difference Respiratory Index Sodium 147.0 Chloride 115.0 H Glucose 335 H Lactate 5.0 H* Vent Mode Mechanical Rate FiO2 Tidal Volume PEEP Crit Value Called To Dr. donald Crit Value Called By Ronan horn Crit Value Read Back Y Blood Gas Notified Time 1958 Potassium Carbon Dioxide Anion Gap BUN Creatinine Est GFR ( Amer) Est GFR (Non-Af Amer) Random Glucose Calcium Phosphorus Magnesium Total Bilirubin AST ALT Alkaline Phosphatase Troponin I Total Protein Albumin Globulin Albumin/Globulin Ratio Procalcitonin Arterial Blood Potassium Venous Blood Potassium 5.3 H Urine Color Urine Clarity Urine pH Ur Specific [place] Urine Protein Urine Glucose (UA) Urine Ketones Urine Blood Urine Nitrate Urine Bilirubin Urine Urobilinogen Ur Leukocyte Esterase Urine WBC (Auto) Urine RBC (Auto) Urine Bacteria Hyaline Casts Urine Yeast (Budding) - Imaging and Cardiology Chest x-ray Status: Image reviewed by me, Report reviewed by me Assessment & Plan - Assessment and Plan (Free Text) Assessment: 1.Hypercapnic Respiratory failure On Ventilator,wean as tolerated 2.Pneumonia/Sepsis IV fluids,antibiotics,pressors f/u cultures 3.DM insulin coverage 4.Anemia -f/u H/H 5.seizures on Keppra and Valproic acid f/u levels 6.Renal insufficiency IV hydration 7.H/O CVA and paraplegia 8.Dementia
[2018-11-03] MEDS ORDERED: Sodium Chloride 0.9% 1,000 ML IV ONE (20:48)
[2018-11-03] MEDS ORDERED: (Novolin R) Insulin Human Regular 100 units/ml vial SC SCH (21:00)
[2018-11-03] MEDS ORDERED: Piperacill/Tazo 3.375gm in Dex 3.375 GM/50 ML BAG IVPB SCH (21:00)
--- NOTE | 2018-11-03 23:32 | CP.PCM.HP ---
Past Patient History - Infectious Disease Hx of Infectious Diseases: None - Past Medical History & Family History Past Medical History?: Yes - Past Social History Smoking Status: Never Smoked Home Situation {Lives}: Snf - CARDIAC Hx Hypercholesterolemia: Yes Hx Hypertension: Yes - PULMONARY Hx Pneumonia: Yes (Aspiration) - NEUROLOGICAL Hx Alzheimer's Disease: Yes Hx Dementia: Yes Hx Seizures: Yes - HEENT Hx HEENT Problems: Yes Hx Cataracts: Yes (Both Cataract Surgery) - RENAL Hx Chronic Kidney Disease: No - ENDOCRINE/METABOLIC Hx Endocrine Disorders: Yes Hx Diabetes Mellitus Type 2: Yes - HEMATOLOGICAL/ONCOLOGICAL Hx Blood Disorders: No - INTEGUMENTARY Hx Dermatological Problems: No - MUSCULOSKELETAL/RHEUMATOLOGICAL Hx Arthritis: Yes Hx Fractures: Yes (non displaced avulsion fracture of right talus) - GASTROINTESTINAL Hx Gastrointestinal Disorders: Yes Hx Gastroesophageal Reflux: Yes - GENITOURINARY/GYNECOLOGICAL Hx Genitourinary Disorders: Yes Hx Prostate Problems: Yes (BPH) - PSYCHIATRIC Hx Anxiety: Yes Hx Bipolar Disorder: Yes Hx Depression: Yes Hx Substance Use: No - SURGICAL HISTORY Hx Appendectomy: Yes - ANESTHESIA Hx Anesthesia: Yes Hx Anesthesia Reactions: No Hx Malignant Hyperthermia: No Meds Allergies/Adverse Reactions: Allergies Allergy/AdvReac Type Severity Reaction Status Date / Time No Known Allergies Allergy Verified 11/03/18 16:30 Results - Vital Signs Recent Vital Signs: Last Vital Signs Temp 102.8 F H 11/03/18 17:57 Pulse 106 H 11/03/18 18:57 Resp 28 H 11/03/18 18:57 BP 92/62 L 11/03/18 18:57 Pulse Ox 100 11/03/18 19:05 - Labs Result Diagrams: 11/03/18 16:59 11/03/18 16:59 Labs: Laboratory Results - last 24 hr 11/03/18 11/03/18 11/03/18 16:45 16:59 16:59 WBC 10.5 RBC 3.32 L Hgb 7.9 L Hct 26.3 L MCV 79.3 L D MCH 23.8 L MCHC 30.0 L RDW 19.5 H Plt Count 272 MPV 9.4 Neut % (Auto) 90.6 H Lymph % (Auto) 5.1 L Brewster % (Auto) 4.1 Eos % (Auto) 0.0 Baso % (Auto) 0.2 Neut # (Auto) 9.5 H Lymph # (Auto) 0.5 L Brewster # (Auto) 0.4 Eos # (Auto) 0.0 Baso # (Auto) 0.0 Neutrophils % (Manual) 56 Band Neutrophils % 24 H* Lymphocytes % (Manual) 12 L Reactive Lymphs % 3 H Monocytes % (Manual) 5 Hypersegmented Polys Present Smudge Cells Present Toxic Granulation Present Platelet Estimate Normal Large Platelets Present Poikilocytosis (manual Slight Anisocytosis (manual) Slight Microcytosis (manual) Slight Spherocytes Slight Target Cells Slight PT 18.1 H INR 1.7 APTT 46 H Puncture Site Rradial pCO2 72 H* pO2 100 HCO3 26.0 ABG pH 7.24 L ABG Total CO2 33.1 H ABG O2 Saturation 97.5 ABG Base Excess 1.4 Ruiz Test Pos ABG Potassium 5.2 VBG pH VBG pCO2 VBG HCO3 VBG Total CO2 VBG O2 Sat (Calc) VBG Base Excess VBG Potassium A-a O2 Difference 523.0 Respiratory Index 5.2 Sodium 151.0 H Chloride 116.0 H Glucose 357 H Lactate 2.3 H Vent Mode Prvc Mechanical Rate 14 FiO2 100.0 Tidal Volume 500 PEEP 5 Crit Value Called To Dr. young Crit Value Called By Aracely rahman rcp Crit Value Read Back Y Blood Gas Notified Time 1654 Potassium Carbon Dioxide Anion Gap BUN Creatinine Est GFR ( Amer) Est GFR (Non-Af Amer) POC Glucose (mg/dL) Random Glucose Calcium Phosphorus Magnesium Total Bilirubin AST ALT Alkaline Phosphatase Troponin I Total Protein Albumin Globulin Albumin/Globulin Ratio Procalcitonin Arterial Blood Potassium 5.2 Venous Blood Potassium Urine Color Urine Clarity Urine pH Ur Specific Martin Urine Protein Urine Glucose (UA) Urine Ketones Urine Blood Urine Nitrate Urine Bilirubin Urine Urobilinogen Ur Leukocyte Esterase Urine WBC (Auto) Urine RBC (Auto) Urine Bacteria Hyaline Casts Urine Yeast (Budding) 11/03/18 11/03/18 11/03/18 16:59 17:21 17:31 WBC RBC Hgb Hct MCV MCH MCHC RDW Plt Count MPV Neut % (Auto) Lymph % (Auto) Brewster % (Auto) Eos % (Auto) Baso % (Auto) Neut # (Auto) Lymph # (Auto) Brewster # (Auto) Eos # (Auto) Baso # (Auto) Neutrophils % (Manual) Band Neutrophils % Lymphocytes % (Manual) Reactive Lymphs % Monocytes % (Manual) Hypersegmented Polys Smudge Cells Toxic Granulation Platelet Estimate Large Platelets Poikilocytosis (manual Anisocytosis (manual) Microcytosis (manual) Spherocytes Target Cells PT INR APTT Puncture Site pCO2 pO2 HCO3 ABG pH ABG Total CO2 ABG O2 Saturation ABG Base Excess Ruiz Test ABG Potassium VBG pH VBG pCO2 VBG HCO3 VBG Total CO2 VBG O2 Sat (Calc) VBG Base Excess VBG Potassium A-a O2 Difference Respiratory Index Sodium 146 Chloride 112 H Glucose Lactate Vent Mode Mechanical Rate FiO2 Tidal Volume PEEP Crit Value Called To Crit Value Called By Crit Value Read Back Blood Gas Notified Time Potassium 5.3 H Carbon Dioxide 26 Anion Gap 13 BUN 49 H Creatinine 1.6 H Est GFR ( Amer) 53 Est GFR (Non-Af Amer) 44 POC Glucose (mg/dL) Random Glucose 349 H Calcium 8.2 L Phosphorus 5.6 H Magnesium 2.0 Total Bilirubin 0.2 AST 29 ALT 17 L D Alkaline Phosphatase 105 Troponin I 0.0420 Total Protein 6.8 Albumin 2.5 L Globulin 4.2 H Albumin/Globulin Ratio 0.6 L Procalcitonin 14.93 H Arterial Blood Potassium Venous Blood Potassium Urine Color Carol Ann Urine Clarity Hazy Urine pH 5.0 Ur Specific Martin 1.025 Urine Protein 2+ H Urine Glucose (UA) 1+ H Urine Ketones Trace Urine Blood 1+ H Urine Nitrate Negative Urine Bilirubin Negative Urine Urobilinogen Normal Ur Leukocyte Esterase Trace Urine WBC (Auto) 12 H Urine RBC (Auto) 17 H Urine Bacteria Rare Hyaline Casts >20 H Urine Yeast (Budding) Occ H 11/03/18 11/03/18 19:55 22:49 WBC RBC Hgb Hct MCV MCH MCHC RDW Plt Count MPV Neut % (Auto) Lymph % (Auto) Brewster % (Auto) Eos % (Auto) Baso % (Auto) Neut # (Auto) Lymph # (Auto) Brewster # (Auto) Eos # (Auto) Baso # (Auto) Neutrophils % (Manual) Band Neutrophils % Lymphocytes % (Manual) Reactive Lymphs % Monocytes % (Manual) Hypersegmented Polys Smudge Cells Toxic Granulation Platelet Estimate Large Platelets Poikilocytosis (manual Anisocytosis (manual) Microcytosis (manual) Spherocytes Target Cells PT INR APTT Puncture Site pCO2 pO2 38 HCO3 ABG pH ABG Total CO2 ABG O2 Saturation ABG Base Excess Ruiz Test ABG Potassium VBG pH 7.33 VBG pCO2 51 VBG HCO3 24.3 VBG Total CO2 28.5 H VBG O2 Sat (Calc) 66.4 H VBG Base Excess 0.2 VBG Potassium 5.3 H A-a O2 Difference Respiratory Index Sodium 147.0 Chloride 115.0 H Glucose 335 H Lactate 5.0 H* Vent Mode Mechanical Rate FiO2 Tidal Volume PEEP Crit Value Called To Dr. donald Crit Value Called By Ronan horn Crit Value Read Back Y Blood Gas Notified Time 1958 Potassium Carbon Dioxide Anion Gap BUN Creatinine Est GFR ( Amer) Est GFR (Non-Af Amer) POC Glucose (mg/dL) 352 H Random Glucose Calcium Phosphorus Magnesium Total Bilirubin AST ALT Alkaline Phosphatase Troponin I Total Protein Albumin Globulin Albumin/Globulin Ratio Procalcitonin Arterial Blood Potassium Venous Blood Potassium 5.3 H Urine Color Urine Clarity Urine pH Ur Specific Martin Urine Protein Urine Glucose (UA) Urine Ketones Urine Blood Urine Nitrate Urine Bilirubin Urine Urobilinogen Ur Leukocyte Esterase Urine WBC (Auto) Urine RBC (Auto) Urine Bacteria Hyaline Casts Urine Yeast (Budding)
[2018-11-04] MEDS: levETIRAcetam 100 mg/ml (5ml) Oral Syringe PO SCH ×3 (01:02→17:46)
[2018-11-04] MEDS: Valproic Acid 250 mg/5 ml UD Cup PO SCH ×3 (01:02→17:46)
[2018-11-04] MEDS: Piperacill/Tazo 3.375gm in Dex 3.375 GM/50 ML BAG IVPB SCH ×3 (02:30→17:47)
[2018-11-04 04:35] LABS: ARTERIAL BLOOD GAS HCO3 25.4 mmol/L (21-28); ARTERIAL BLOOD GAS HEMOGLOBIN 10.2 g/dL (11.7-17.4); ARTERIAL BLOOD GAS O2 SAT 99.9 % (95-98); ARTERIAL BLOOD GAS PCO2 44 mm/Hg (35-45); ARTERIAL BLOOD GAS PH 7.38 (7.35-7.45); ARTERIAL BLOOD GAS PO2 136 mm/Hg (80-100); ARTERIAL BLOOD GAS TCO2 27.4 mmol/L (22-28)
[2018-11-04 05:43] LABS: BASO % 0.1 % (0.0-2.0); HEMOGLOBIN 6.6 g/dL (12.0-18.0); LYMPH # 1.7 K/uL (1.0-4.3); MEAN CELL VOLUME 78.8 fL (80.0-94.0); MEAN CORPUSCULAR HEMOGLOBIN 23.2 pg (27.0-31.0); MEAN CORPUSCULAR HGB CONC 29.5 g/dL (33.0-37.0); MEAN PLATELET VOLUME 9.4 fL (7.2-11.7); MONO # 0.4 K/uL (0.0-0.8); MONO % 3.4 % (0.0-10.0); NEUT # 9.5 K/uL (1.8-7.0); NEUT % 81.5 % (50.0-75.0); RBC 2.82 Mil/uL (4.40-5.90); RED CELL DISTRIBUTION WIDTH 19.5 % (11.5-14.5); WHITE BLOOD COUNT 11.7 K/uL (4.8-10.8)
[2018-11-04] MEDS: Lactated Ringer's 1,000 ML IV SCH ×3 (06:05→23:54)
[2018-11-04 06:07] LABS: ALB/GLOB RATIO 0.6 (1.0-2.1); ALBUMIN 2.2 g/dL (3.5-5.0); ALT/SGPT 21 U/L (21-72); AST/SGOT 27 U/L (17-59); BLOOD UREA NITROGEN 40 mg/dL (9-20); CALCIUM 7.8 mg/dl (8.6-10.4); GFR NON-AFRICAN AMERICAN 56
[2018-11-04] MEDS: (Novolin R) Insulin Human Regular 100 units/ml vial SC SCH ×4 (06:59→17:37)
[2018-11-04 07:45] LABS: MEAN CELL VOLUME 78.2 fL (80.0-94.0); MEAN CORPUSCULAR HEMOGLOBIN 23.5 pg (27.0-31.0); MEAN CORPUSCULAR HGB CONC 30.1 g/dL (33.0-37.0); MEAN PLATELET VOLUME 9.1 fL (7.2-11.7); RBC 2.76 Mil/uL (4.40-5.90); RED CELL DISTRIBUTION WIDTH 19.2 % (11.5-14.5); WHITE BLOOD COUNT 11.6 K/uL (4.8-10.8)
[2018-11-04 07:50] LABS: HEMOGLOBIN 6.5 g/dL (12.0-18.0)
[2018-11-04] MEDS: Enoxaparin 40 mg Syringe SC SCH (10:19)
--- NOTE | 2018-11-04 10:41 | RAD ---
Date of service: 11/04/2018 PROCEDURE: CHEST RADIOGRAPH, 1 VIEW HISTORY: Respiratory failure COMPARISON: 11/03/2018 FINDINGS: LUNGS: There is no change in the bilateral infiltrates. Endotracheal tube and nasogastric tube are in satisfactory position PLEURA: No pneumothorax or pleural fluid seen. CARDIOVASCULAR: No aortic atherosclerotic calcification present. Normal. OSSEOUS STRUCTURES: No significant abnormalities. VISUALIZED UPPER ABDOMEN: Normal. OTHER FINDINGS: None. IMPRESSION: There is no change in the bilateral infiltrates. Endotracheal tube and nasogastric tube are in satisfactory position
[2018-11-04 12:23] LABS: ARTERIAL BLOOD GAS HCO3 25.9 mmol/L (21-28); ARTERIAL BLOOD GAS O2 SAT 99.7 % (95-98); ARTERIAL BLOOD GAS PCO2 41 mm/Hg (35-45); ARTERIAL BLOOD GAS PH 7.41 (7.35-7.45); ARTERIAL BLOOD GAS PO2 140 mm/Hg (80-100); ARTERIAL BLOOD GAS TCO2 27.3 mmol/L (22-28)
--- NOTE | 2018-11-04 13:20 | CP.PCM.PN ---
Subjective - Date & Time of Evaluation Date of Evaluation: 11/04/18 Time of Evaluation: 13:18 - Subjective Subjective: ICU Progress Note for Dr. Momin Patient seen and examined at bedside this morning. Patient resting comfortably in bed, easily arousable. Due to patient condition, ROS unable to be obtained. Objective - Vital Signs/Intake and Output Vital Signs (last 24 hours): Temp Pulse Resp BP Pulse Ox 98.4 F 69 20 103/60 100 11/04/18 12:00 11/04/18 12:00 11/04/18 12:00 11/04/18 11:56 11/04/18 12:00 Intake and Output: 11/04/18 11/04/18 06:59 18:59 Intake Total 900.3 217.4 Output Total 230 100 Balance 670.3 117.4 - Medications Medications: Current Medications Enoxaparin Sodium (Lovenox) 40 mg SC DAILY [facility] Last Admin: 11/04/18 10:19 Dose: 40 mg Famotidine (Pepcid) 20 mg IVP Q12 [facility] Last Admin: 11/04/18 10:18 Dose: 20 mg Lactated Ringer's (Lactated Ringer's) 1,000 mls @ 100 mls/hr IV .Q10H [facility] Last Admin: 11/04/18 06:05 Dose: 100 mls/hr Norepinephrine Bitartrate 4 mg (/ Sodium Chloride) 254 mls @ 15.24 mls/hr IV .[id number] PRN; Protocol PRN Reason: TITRATE PER MD ORDER Last Admin: 11/04/18 10:45 Dose: 2 mcg/min, 7.62 mls/hr Piperacillin Sod/Tazobactam Sod (Zosyn 3.375 Gm Iv Premix) 3.375 gm in 50 mls @ 100 mls/hr IVPB Q8H [facility]; Protocol Last Admin: 11/04/18 10:19 Dose: 100 mls/hr Dexmedetomidine HCl 200 mcg/ (Sodium Chloride) 50 mls @ 2.56 mls/hr IV TITR PRN; Protocol PRN Reason: Agitation Insulin Human Regular (Novolin R) 0 unit SC Q6H [facility]; Protocol Last Admin: 11/04/18 06:59 Dose: Not Given Levetiracetam (Keppra) 500 mg PO BID [facility] Last Admin: 11/04/18 10:18 Dose: 500 mg Valproate Sodium (Depakene Oral Soln) 250 mg PO BID [facility] Last Admin: 11/04/18 10:18 Dose: 250 mg - Labs Labs: 11/04/18 07:34 11/04/18 05:39 PT 18.1 SECONDS (9.7-12.2) H 11/03/18 16:59 INR 1.7 11/03/18 16:59 APTT 46 SECONDS (21-34) H 11/03/18 16:59 - Constitutional Appears: Well, No Acute Distress, Other (patient lethargic but easily arousable) - Head Exam Head Exam: ATRAUMATIC, NORMAL INSPECTION, NORMOCEPHALIC - Eye Exam Eye Exam: EOMI - ENT Exam Additional comments: oropharyngeal tube in place - Neck Exam Neck Exam: Normal Inspection - Respiratory Exam Respiratory Exam: Wheezes Additional comments: L>R wheezes - Cardiovascular Exam Cardiovascular Exam: Murmur (soft, holosystolic murmur throughout all listening posts) - GI/Abdominal Exam GI & Abdominal Exam: Soft. absent: Firm, Guarding, Tenderness - Exam Additional comments: dumont catheter on - Extremities Exam Extremities Exam: Normal Capillary Refill Additional comments: left glove mitt intact, SCDs intact, offloading pressure boots intact - Neurological Exam Neurological Exam: Awake Additional comments: Due to patient not responding to commands, unable to complete neuro exam. Assessment and Plan - Assessment and Plan (Free Text) Assessment: 63 y/o male with multiple medical problems including PMHx of seizures, DM, CVA, and dementia with respiratory failure. Neuro -seizures: continue with keppra and valproate (check medication levels) -history of CVA, paraplegia, and dementia CV - no active issues Pulm -admitted with hypercapnic respiratory failure -pending ABG shock panel from today, 11/04 -on ventilator, wean as tolerated GI -no active issues Renal -renal insufficiency -IVF - LR at 100 mL/hr ID -11/03 and 11/04 CXR: bilateral pulmonary infiltrates -f/u PNA work up - sputum culture, change abx if needed when speciation results return -monitor VS and mental status - patient hemodynamically stable currently -IVF - LR at 100 mL/hr -zosyn 3.374 g IV q8h started today, 11/04 Endo -DM: ISS, hypoglycemia protocol Heme -anemia Hg 6.5 this morning 11/04 -s/p 1 PRBC, will receive second bag this afternoon -f/u H/H 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 Liliane Stanton PGY1
--- NOTE | 2018-11-04 16:55 | CARD ---
APPROVED REPORT Date of service: 11/03/2018 EKG Measurement Heart [id number] <Conclusion> Sinus tachycardia Otherwise normal ECG
--- NOTE | 2018-11-04 19:12 | CP.PCM.PN ---
Subjective - Date & Time of Evaluation Date of Evaluation: 11/04/18 Time of Evaluation: 12:00 - Subjective Subjective: clinically same Objective - Vital Signs/Intake and Output Vital Signs (last 24 hours): Temp Pulse Resp BP Pulse Ox 98.1 F 64 20 108/59 L 98 11/04/18 18:35 11/04/18 19:00 11/04/18 19:00 11/04/18 18:45 11/04/18 19:00 Intake and Output: 11/04/18 11/05/18 18:59 06:59 Intake Total 1695.1 Output Total 700 Balance 995.1 - Medications Medications: Current Medications Enoxaparin Sodium (Lovenox) 40 mg SC DAILY [facility] Last Admin: 11/04/18 10:19 Dose: 40 mg Famotidine (Pepcid) 20 mg IVP Q12 [facility] Last Admin: 11/04/18 10:18 Dose: 20 mg Lactated Ringer's (Lactated Ringer's) 1,000 mls @ 100 mls/hr IV .Q10H [facility] Last Admin: 11/04/18 18:20 Dose: Not Given Norepinephrine Bitartrate 4 mg (/ Sodium Chloride) 254 mls @ 15.24 mls/hr IV .[id number] PRN; Protocol PRN Reason: TITRATE PER MD ORDER Last Admin: 11/04/18 10:45 Dose: 2 mcg/min, 7.62 mls/hr Piperacillin Sod/Tazobactam Sod (Zosyn 3.375 Gm Iv Premix) 3.375 gm in 50 mls @ 100 mls/hr IVPB Q8H [facility]; Protocol Last Admin: 11/04/18 17:47 Dose: 100 mls/hr Dexmedetomidine HCl 200 mcg/ (Sodium Chloride) 50 mls @ 2.56 mls/hr IV TITR PRN; Protocol PRN Reason: Agitation Insulin Human Regular (Novolin R) 0 unit SC Q6H [facility]; Protocol Last Admin: 11/04/18 17:37 Dose: Not Given Levetiracetam (Keppra) 500 mg PO BID [facility] Last Admin: 11/04/18 17:46 Dose: 500 mg Valproate Sodium (Depakene Oral Soln) 250 mg PO BID [facility] Last Admin: 11/04/18 17:46 Dose: 250 mg - Labs Labs: 11/04/18 07:34 11/04/18 05:39 PT 18.1 SECONDS (9.7-12.2) H 11/03/18 16:59 INR 1.7 11/03/18 16:59 APTT 46 SECONDS (21-34) H 11/03/18 16:59 - Constitutional Appears: Well - Head Exam Head Exam: ATRAUMATIC, NORMAL INSPECTION, NORMOCEPHALIC - Eye Exam Eye Exam: EOMI, Normal appearance, PERRL Pupil Exam: NORMAL ACCOMODATION, PERRL - ENT Exam ENT Exam: Mucous Membranes Moist, Normal Exam - Neck Exam Neck Exam: Full ROM, Normal Inspection. absent: Lymphadenopathy - Respiratory Exam Respiratory Exam: Decreased Breath Sounds - Cardiovascular Exam Cardiovascular Exam: REGULAR RHYTHM, +S1, +S2 - GI/Abdominal Exam GI & Abdominal Exam: Soft, Diminished Bowel Sounds - Rectal Exam Rectal Exam: Deferred
[2018-11-04] MEDS ORDERED: Vancomycin 1 gm/NS 200 ml 1 GM/200 ML BAG IVPB SCH (22:00)
[2018-11-05] MEDS: (Novolin R) Insulin Human Regular 100 units/ml vial SC SCH ×5 (00:24→23:40)
[2018-11-05] MEDS: Lactated Ringer's 1,000 ML IV SCH ×3 (00:26→19:52)
[2018-11-05] MEDS: Piperacill/Tazo 3.375gm in Dex 3.375 GM/50 ML BAG IVPB SCH ×3 (01:00→17:07)
[2018-11-05] MEDS: Dexmedetomidine Hydrochloride 200 MCG in Sodium Chloride 0.9% 48 ML IV PRN ×4 (02:09→19:00)
[2018-11-05 05:19] LABS: ABG ALLEN TEST POS; ARTERIAL BLOOD GAS O2 SAT 99.7 % (95-98); ARTERIAL BLOOD GAS PCO2 38 mm/Hg (35-45); ARTERIAL BLOOD GAS PH 7.47 (7.35-7.45); ARTERIAL BLOOD GAS PO2 150 mm/Hg (80-100); ARTERIAL BLOOD GAS TCO2 28.9 mmol/L (22-28)
[2018-11-05 05:58] LABS: BASO % 0.1 % (0.0-2.0); EOS % 0.1 % (0.0-4.0); HEMOGLOBIN 9.6 g/dL (12.0-18.0); LYMPH # 1.9 K/uL (1.0-4.3); LYMPH % 12.5 % (20.0-40.0); MEAN CELL VOLUME 80.2 fL (80.0-94.0); MEAN CORPUSCULAR HEMOGLOBIN 25.4 pg (27.0-31.0); MEAN CORPUSCULAR HGB CONC 31.7 g/dL (33.0-37.0); MEAN PLATELET VOLUME 9.8 fL (7.2-11.7); MONO # 0.4 K/uL (0.0-0.8); MONO % 2.5 % (0.0-10.0); NEUT # 12.8 K/uL (1.8-7.0); NEUT % 84.8 % (50.0-75.0); NRBC % 0.1 % (0.0-2.0); RBC 3.79 Mil/uL (4.40-5.90); RED CELL DISTRIBUTION WIDTH 18.9 % (11.5-14.5); WHITE BLOOD COUNT 15.1 K/uL (4.8-10.8)
[2018-11-05 06:23] LABS: ALB/GLOB RATIO 0.6 (1.0-2.1); ALBUMIN 2.2 g/dL (3.5-5.0); ALT/SGPT 22 U/L (21-72); AST/SGOT 27 U/L (17-59); BLOOD UREA NITROGEN 33 mg/dL (9-20); CALCIUM 7.9 mg/dl (8.6-10.4); GFR NON-AFRICAN AMERICAN 56
--- NOTE | 2018-11-05 08:24 | CP.CCUPN ---
<Francisca Stanton - Last Filed: 11/05/18 11:52> CCU Subjective - Physician Review Subjective (Free Text): 11/05/18 08:22 ICU Progress Note for Dr. Tafoya Patient seen and examined at bedside this morning. Patient resting comfortably in bed, easily arousable. Was complaint with getting ECHO at bedside. Due to patient condition, ROS unable to be obtained. Called daughter, Rajan, to get consent for insertion of central line. She consented after hearing risks and benefits. She states she will come before 7pm today to speak to ICU resident. 11/05/18 11:48 CCU Objective - Vital Signs / Intake & Output Vital Signs (Last 4 hours): Vital Signs Pulse Resp BP Pulse Ox 11/05/18 06:01 61 21 99/57 L 98 11/05/18 05:01 73 22 146/82 99 Intake and Output (Last 8hrs): Intake & Output 11/04/18 11/05/18 11/05/18 22:59 06:59 14:59 Intake Total 1272.5 1122.6 Output Total 460 450 Balance 812.5 672.6 Intake: IV 102.5 40.9 Intake, IV Amount 510.0 881.7 Right Arm midline 9.1 Right Distal Port Femoral 60.0 22.6 Right Proximal Port 450 850 Forearm Tube Feeding 60 200 Blood Product 500 Red Blood Cells Cpd As1 125 Lr Unit [id number] Other 100 Red Blood Cells Cpd As1 100 Lr Unit [id number] Output: Urine 460 450 Urethral (Nelson) 460 450 Emesis 0 Other: # Bowel Movements 0 0 - Physical Exam Physical Exam Limitations: Positive for: Altered Mental Status Head: Positive for: Atraumatic, Normocephalic Extroacular Muscles: Positive for: EOMI Conjunctiva: Positive for: Normal Cardiovascular: Positive for: Regular Rate and Rhythm Abdomen: Negative for: Tenderness, Distention, Rebound, Guarding Upper Extremity: Positive for: Normal Inspection Lower Extremity: Positive for: Normal Inspection Neurological: Positive for: Other (left leg with sudden kicks) Skin: Positive for: Warm, Dry, Normal Color Psychiatric: Positive for: Alert Other physical findings (Free Text): right triple lumen femoral catheter c/d/i - Medications Active Medications: Active Medications Generic Name Dose Route Start Last Admin Trade Name Freq PRN Reason Stop Dose Admin Enoxaparin Sodium 40 mg 11/04/18 10:00 11/04/18 10:19 Lovenox SC 40 mg DAILY HUMBERTO Administration Famotidine 20 mg 11/03/18 22:00 11/04/18 22:24 Pepcid IVP 20 mg Q12 HUMBERTO Administration Lactated Ringer's 1,000 mls @ 100 mls/hr 11/03/18 17:45 11/05/18 00:26 Lactated Ringer's IV 100 mls/hr .Q10H HUMBERTO Administration Norepinephrine Bitartrate 4 mg 254 mls @ 15.24 mls/hr 11/03/18 20:48 11/05/18 05:43 / Sodium Chloride IV 0 mcg/min .[id number] PRN 0 mls/hr TITRATE PER MD ORDER Titration Protocol 4 MCG/MIN Piperacillin Sod/Tazobactam Sod 3.375 gm in 50 mls @ 100 mls/hr 11/04/18 01:30 11/05/18 01:00 Zosyn 3.375 Gm Iv Premix IVPB 100 mls/hr Q8H HUMBERTO Administration Protocol Dexmedetomidine HCl 200 mcg/ 50 mls @ 2.56 mls/hr 11/04/18 11:00 11/05/18 05:44 Sodium Chloride IV 0 mcg/kg/hr TITR PRN 0 mls/hr Agitation Titration Protocol 0.2 MCG/KG/HR Vancomycin HCl 1 gm/ Sodium 250 mls @ 166.7 mls/hr 11/05/18 10:00 Chloride IVPB Q24H [facility] Protocol Insulin Human Regular 0 unit 11/04/18 00:00 11/05/18 05:29 Novolin R SC Not Given Q6H [facility] Protocol Levetiracetam 500 mg 11/03/18 21:00 11/04/18 17:46 Keppra PO 500 mg BID HUMBERTO Administration Valproate Sodium 250 mg 11/03/18 21:00 11/04/18 17:46 Depakene Oral Soln PO 250 mg BID HUMBERTO Administration - Patient Studies Lab Studies: Microbiology Studies 11/03/18 17:05 S.aureus & Coag-Neg Staph PNA FISH - Final Blood Blood Culture - Preliminary Gram Pos Cocci In Clusters Gram Stain - Final 11/03/18 16:55 Blood Culture - Preliminary Blood NO GROWTH AFTER 24 HOURS 11/03/18 17:31 Urine Culture - Final Urine,Catheterized No Growth (<1,000 CFU/ML) Lab Studies 11/05/18 11/05/18 11/05/18 Range/Units 05:51 05:51 05:51 WBC 15.1 H (4.8-10.8) K/uL RBC 3.79 L (4.40-5.90) Mil/uL Hgb 9.6 L D (12.0-18.0) g/dL Hct 30.4 L (35.0-51.0) % MCV 80.2 D (80.0-94.0) fL MCH 25.4 L (27.0-31.0) pg MCHC 31.7 L (33.0-37.0) g/dL RDW 18.9 H (11.5-14.5) % Plt Count 230 (130-400) K/uL MPV 9.8 (7.2-11.7) fL Neut % (Auto) 84.8 H (50.0-75.0) % Lymph % (Auto) 12.5 L (20.0-40.0) % Adams % (Auto) 2.5 (0.0-10.0) % Eos % (Auto) 0.1 (0.0-4.0) % Baso % (Auto) 0.1 (0.0-2.0) % Neut # (Auto) 12.8 H (1.8-7.0) K/uL Lymph # (Auto) 1.9 (1.0-4.3) K/uL Adams # (Auto) 0.4 (0.0-0.8) K/uL Eos # (Auto) 0.0 (0.0-0.7) K/uL Baso # (Auto) 0.0 (0.0-0.2) K/uL Puncture Site pCO2 (35-45) mm/Hg pO2 (80-100) mm/Hg HCO3 (21-28) mmol/L ABG pH (7.35-7.45) ABG Total CO2 (22-28) mmol/L ABG O2 Saturation (95-98) % ABG Base Excess (-2.0-3.0) mmol/L Ruiz Test ABG Potassium (3.6-5.2) mmol/L A-a O2 Difference mm/Hg Respiratory Index Sodium 147 (132-148) mmol/l Chloride 115 H (98-107) mmol/L Glucose (75-110) mg/dl Lactate (0.7-2.1) mmol/L Vent Mode Mechanical Rate FiO2 % Tidal Volume PEEP Potassium 4.0 (3.6-5.2) mmol/L Carbon Dioxide 28 (22-30) mmol/L Anion Gap 7 L (10-20) BUN 33 H (9-20) mg/dL Creatinine 1.3 (0.8-1.5) mg/dL Est GFR ( Amer) > 60 Est GFR (Non-Af Amer) 56 POC Glucose (mg/dL) (65-110) mg/dL Random Glucose 145 H (75-110) mg/dL Calcium 7.9 L (8.6-10.4) mg/dl Phosphorus 3.0 (2.5-4.5) mg/dL Magnesium 1.8 (1.6-2.3) mg/dL Total Bilirubin 0.3 (0.2-1.3) mg/dL AST 27 (17-59) U/L ALT 22 (21-72) U/L Alkaline Phosphatase 132 H D (38-126) U/L Total Protein 6.2 L (6.3-8.3) g/dL Albumin 2.2 L (3.5-5.0) g/dL Globulin 4.0 H (2.2-3.9) gm/dL Albumin/Globulin Ratio 0.6 L (1.0-2.1) Arterial Blood Potassium (3.6-5.2) mmol/L Random Vancomycin 17.3 ug/mL Blood Type Antibody Screen 11/05/18 11/05/18 11/04/18 Range/Units 05:19 05:11 23:54 WBC (4.8-10.8) K/uL RBC (4.40-5.90) Mil/uL Hgb (12.0-18.0) g/dL Hct (35.0-51.0) % MCV (80.0-94.0) fL MCH (27.0-31.0) pg MCHC (33.0-37.0) g/dL RDW (11.5-14.5) % Plt Count (130-400) K/uL MPV (7.2-11.7) fL Neut % (Auto) (50.0-75.0) % Lymph % (Auto) (20.0-40.0) % Adams % (Auto) (0.0-10.0) % Eos % (Auto) (0.0-4.0) % Baso % (Auto) (0.0-2.0) % Neut # (Auto) (1.8-7.0) K/uL Lymph # (Auto) (1.0-4.3) K/uL Adams # (Auto) (0.0-0.8) K/uL Eos # (Auto) (0.0-0.7) K/uL Baso # (Auto) (0.0-0.2) K/uL Puncture Site Rr pCO2 38 (35-45) mm/Hg pO2 150 H (80-100) mm/Hg HCO3 28.0 (21-28) mmol/L ABG pH 7.47 H (7.35-7.45) ABG Total CO2 28.9 H (22-28) mmol/L ABG O2 Saturation 99.7 H (95-98) % ABG Base Excess 3.9 H (-2.0-3.0) mmol/L Ruiz Test Pos ABG Potassium 3.9 (3.6-5.2) mmol/L A-a O2 Difference 302.0 mm/Hg Respiratory Index 2.0 Sodium 149.0 H (132-148) mmol/l Chloride 119.0 H (98-107) mmol/L Glucose 148 H (75-110) mg/dl Lactate 1.2 (0.7-2.1) mmol/L Vent Mode Prvc Mechanical Rate 20 FiO2 70.0 % Tidal Volume 500 PEEP 5 Potassium (3.6-5.2) mmol/L Carbon Dioxide (22-30) mmol/L Anion Gap (10-20) BUN (9-20) mg/dL Creatinine (0.8-1.5) mg/dL Est GFR ( Amer) Est GFR (Non-Af Amer) POC Glucose (mg/dL) 137 H 96 (65-110) mg/dL Random Glucose (75-110) mg/dL Calcium (8.6-10.4) mg/dl Phosphorus (2.5-4.5) mg/dL Magnesium (1.6-2.3) mg/dL Total Bilirubin (0.2-1.3) mg/dL AST (17-59) U/L ALT (21-72) U/L Alkaline Phosphatase (38-126) U/L Total Protein (6.3-8.3) g/dL Albumin (3.5-5.0) g/dL Globulin (2.2-3.9) gm/dL Albumin/Globulin Ratio (1.0-2.1) Arterial Blood Potassium 3.9 (3.6-5.2) mmol/L Random Vancomycin ug/mL Blood Type Antibody Screen 11/04/18 11/04/18 11/04/18 Range/Units 17:29 12:20 11:22 WBC (4.8-10.8) K/uL RBC (4.40-5.90) Mil/uL Hgb (12.0-18.0) g/dL Hct (35.0-51.0) % MCV (80.0-94.0) fL MCH (27.0-31.0) pg MCHC (33.0-37.0) g/dL RDW (11.5-14.5) % Plt Count (130-400) K/uL MPV (7.2-11.7) fL Neut % (Auto) (50.0-75.0) % Lymph % (Auto) (20.0-40.0) % Adams % (Auto) (0.0-10.0) % Eos % (Auto) (0.0-4.0) % Baso % (Auto) (0.0-2.0) % Neut # (Auto) (1.8-7.0) K/uL Lymph # (Auto) (1.0-4.3) K/uL Adams # (Auto) (0.0-0.8) K/uL Eos # (Auto) (0.0-0.7) K/uL Baso # (Auto) (0.0-0.2) K/uL Puncture Site Lf pCO2 41 (35-45) mm/Hg pO2 140 H (80-100) mm/Hg HCO3 25.9 (21-28) mmol/L ABG pH 7.41 (7.35-7.45) ABG Total CO2 27.3 (22-28) mmol/L ABG O2 Saturation 99.7 H (95-98) % ABG Base Excess 1.2 (-2.0-3.0) mmol/L Ruiz Test Na ABG Potassium 3.7 (3.6-5.2) mmol/L A-a O2 Difference 308.0 mm/Hg Respiratory Index 2.2 Sodium 150.0 H (132-148) mmol/l Chloride 120.0 H (98-107) mmol/L Glucose 82 (75-110) mg/dl Lactate 1.0 (0.7-2.1) mmol/L Vent Mode Mechanical Rate FiO2 70.0 % Tidal Volume 500 PEEP 5 Potassium (3.6-5.2) mmol/L Carbon Dioxide (22-30) mmol/L Anion Gap (10-20) BUN (9-20) mg/dL Creatinine (0.8-1.5) mg/dL Est GFR ( Amer) Est GFR (Non-Af Amer) POC Glucose (mg/dL) 72 87 (65-110) mg/dL Random Glucose (75-110) mg/dL Calcium (8.6-10.4) mg/dl Phosphorus (2.5-4.5) mg/dL Magnesium (1.6-2.3) mg/dL Total Bilirubin (0.2-1.3) mg/dL AST (17-59) U/L ALT (21-72) U/L Alkaline Phosphatase (38-126) U/L Total Protein (6.3-8.3) g/dL Albumin (3.5-5.0) g/dL Globulin (2.2-3.9) gm/dL Albumin/Globulin Ratio (1.0-2.1) Arterial Blood Potassium 3.7 (3.6-5.2) mmol/L Random Vancomycin ug/mL Blood Type Antibody Screen 11/04/18 11/04/18 Range/Units 09:00 06:55 WBC (4.8-10.8) K/uL RBC (4.40-5.90) Mil/uL Hgb (12.0-18.0) g/dL Hct (35.0-51.0) % MCV (80.0-94.0) fL MCH (27.0-31.0) pg MCHC (33.0-37.0) g/dL RDW (11.5-14.5) % Plt Count (130-400) K/uL MPV (7.2-11.7) fL Neut % (Auto) (50.0-75.0) % Lymph % (Auto) (20.0-40.0) % Adams % (Auto) (0.0-10.0) % Eos % (Auto) (0.0-4.0) % Baso % (Auto) (0.0-2.0) % Neut # (Auto) (1.8-7.0) K/uL Lymph # (Auto) (1.0-4.3) K/uL Adams # (Auto) (0.0-0.8) K/uL Eos # (Auto) (0.0-0.7) K/uL Baso # (Auto) (0.0-0.2) K/uL Puncture Site pCO2 (35-45) mm/Hg pO2 (80-100) mm/Hg HCO3 (21-28) mmol/L ABG pH (7.35-7.45) ABG Total CO2 (22-28) mmol/L ABG O2 Saturation (95-98) % ABG Base Excess (-2.0-3.0) mmol/L Ruiz Test ABG Potassium (3.6-5.2) mmol/L A-a O2 Difference mm/Hg Respiratory Index Sodium (132-148) mmol/l Chloride (98-107) mmol/L Glucose (75-110) mg/dl Lactate (0.7-2.1) mmol/L Vent Mode Mechanical Rate FiO2 % Tidal Volume PEEP Potassium (3.6-5.2) mmol/L Carbon Dioxide (22-30) mmol/L Anion Gap (10-20) BUN (9-20) mg/dL Creatinine (0.8-1.5) mg/dL Est GFR ( Amer) Est GFR (Non-Af Amer) POC Glucose (mg/dL) 99 (65-110) mg/dL Random Glucose (75-110) mg/dL Calcium (8.6-10.4) mg/dl Phosphorus (2.5-4.5) mg/dL Magnesium (1.6-2.3) mg/dL Total Bilirubin (0.2-1.3) mg/dL AST (17-59) U/L ALT (21-72) U/L Alkaline Phosphatase (38-126) U/L Total Protein (6.3-8.3) g/dL Albumin (3.5-5.0) g/dL Globulin (2.2-3.9) gm/dL Albumin/Globulin Ratio (1.0-2.1) Arterial Blood Potassium (3.6-5.2) mmol/L Random Vancomycin ug/mL Blood Type B POSITIVE Antibody Screen Negative Laboratory Results - last 24 hr 11/04/18 11/04/18 11/04/18 06:55 09:00 11:22 WBC RBC Hgb Hct MCV MCH MCHC RDW Plt Count MPV Neut % (Auto) Lymph % (Auto) Adams % (Auto) Eos % (Auto) Baso % (Auto) Neut # (Auto) Lymph # (Auto) Adams # (Auto) Eos # (Auto) Baso # (Auto) Puncture Site pCO2 pO2 HCO3 ABG pH ABG Total CO2 ABG O2 Saturation ABG Base Excess Ruiz Test ABG Potassium A-a O2 Difference Respiratory Index Sodium Chloride Glucose Lactate Vent Mode Mechanical Rate FiO2 Tidal Volume PEEP Potassium Carbon Dioxide Anion Gap BUN Creatinine Est GFR ( Amer) Est GFR (Non-Af Amer) POC Glucose (mg/dL) 99 87 Random Glucose Calcium Phosphorus Magnesium Total Bilirubin AST ALT Alkaline Phosphatase Total Protein Albumin Globulin Albumin/Globulin Ratio Arterial Blood Potassium Random Vancomycin Blood Type B POSITIVE Antibody Screen Negative 11/04/18 11/04/18 11/04/18 12:20 17:29 23:54 WBC RBC Hgb Hct MCV MCH MCHC RDW Plt Count MPV Neut % (Auto) Lymph % (Auto) Adams % (Auto) Eos % (Auto) Baso % (Auto) Neut # (Auto) Lymph # (Auto) Adams # (Auto) Eos # (Auto) Baso # (Auto) Puncture Site Lf pCO2 41 pO2 140 H HCO3 25.9 ABG pH 7.41 ABG Total CO2 27.3 ABG O2 Saturation 99.7 H ABG Base Excess 1.2 Ruiz Test Na ABG Potassium 3.7 A-a O2 Difference 308.0 Respiratory Index 2.2 Sodium 150.0 H Chloride 120.0 H Glucose 82 Lactate 1.0 Vent Mode Mechanical Rate FiO2 70.0 Tidal Volume 500 PEEP 5 Potassium Carbon Dioxide Anion Gap BUN Creatinine Est GFR ( Amer) Est GFR (Non-Af Amer) POC Glucose (mg/dL) 72 96 Random Glucose Calcium Phosphorus Magnesium Total Bilirubin AST ALT Alkaline Phosphatase Total Protein Albumin Globulin Albumin/Globulin Ratio Arterial Blood Potassium 3.7 Random Vancomycin Blood Type Antibody Screen 11/05/18 11/05/18 11/05/18 05:11 05:19 05:51 WBC 15.1 H RBC 3.79 L Hgb 9.6 L D Hct 30.4 L MCV 80.2 D MCH 25.4 L MCHC 31.7 L RDW 18.9 H Plt Count 230 MPV 9.8 Neut % (Auto) 84.8 H Lymph % (Auto) 12.5 L Adams % (Auto) 2.5 Eos % (Auto) 0.1 Baso % (Auto) 0.1 Neut # (Auto) 12.8 H Lymph # (Auto) 1.9 Adams # (Auto) 0.4 Eos # (Auto) 0.0 Baso # (Auto) 0.0 Puncture Site Rr pCO2 38 pO2 150 H HCO3 28.0 ABG pH 7.47 H ABG Total CO2 28.9 H ABG O2 Saturation 99.7 H ABG Base Excess 3.9 H Ruiz Test Pos ABG Potassium 3.9 A-a O2 Difference 302.0 Respiratory Index 2.0 Sodium 149.0 H Chloride 119.0 H Glucose 148 H Lactate 1.2 Vent Mode Prvc Mechanical Rate 20 FiO2 70.0 Tidal Volume 500 PEEP 5 Potassium Carbon Dioxide Anion Gap BUN Creatinine Est GFR ( Amer) Est GFR (Non-Af Amer) POC Glucose (mg/dL) 137 H Random Glucose Calcium Phosphorus Magnesium Total Bilirubin AST ALT Alkaline Phosphatase Total Protein Albumin Globulin Albumin/Globulin Ratio Arterial Blood Potassium 3.9 Random Vancomycin Blood Type Antibody Screen 11/05/18 11/05/18 05:51 05:51 WBC RBC Hgb Hct MCV MCH MCHC RDW Plt Count MPV Neut % (Auto) Lymph % (Auto) Adams % (Auto) Eos % (Auto) Baso % (Auto) Neut # (Auto) Lymph # (Auto) Adams # (Auto) Eos # (Auto) Baso # (Auto) Puncture Site pCO2 pO2 HCO3 ABG pH ABG Total CO2 ABG O2 Saturation ABG Base Excess Ruiz Test ABG Potassium A-a O2 Difference Respiratory Index Sodium 147 Chloride 115 H Glucose Lactate Vent Mode Mechanical Rate FiO2 Tidal Volume PEEP Potassium 4.0 Carbon Dioxide 28 Anion Gap 7 L BUN 33 H Creatinine 1.3 Est GFR ( Amer) > 60 Est GFR (Non-Af Amer) 56 POC Glucose (mg/dL) Random Glucose 145 H Calcium 7.9 L Phosphorus 3.0 Magnesium 1.8 Total Bilirubin 0.3 AST 27 ALT 22 Alkaline Phosphatase 132 H D Total Protein 6.2 L Albumin 2.2 L Globulin 4.0 H Albumin/Globulin Ratio 0.6 L Arterial Blood Potassium Random Vancomycin 17.3 Blood Type Antibody Screen Radiology Impressions: Radiology Impressions Chest X-Ray 11/04/18 07:00 IMPRESSION: There is no change in the bilateral infiltrates. Endotracheal tube and nasogastric tube are in satisfactory position Fingerstick Blood Sugar Results: 137 Review of Systems - Review of Systems Systems not reviewed;Unavailable: Intubated Assessment/Plan - Assessment and Plan (Free Text) Assessment: 63 y/o male with multiple medical problems including PMHx of seizures, DM, CVA, and dementia with respiratory failure. Neuro -seizures: continue with keppra and valproate (check medication levels) -history of CVA, paraplegia, and dementia CV -no active issues -ECHO completed today 11/05. Pending official read. Pulm -admitted with hypercapnic respiratory failure -daily CXR and ABG -on ventilator, wean as tolerated, currently FiO2 70 GI -no active issues Renal -renal insufficiency -IVF - LR at 100 mL/hr ID -CXR: bilateral pulmonary infiltrates -f/u PNA work up - sputum culture, change abx if needed when speciation results return -monitor VS and mental status - patient hemodynamically stable currently -IVF - LR at 100 mL/hr -zosyn started 11/04 -vanc started 10am on 11/05 -vanc trough ordered for 11/08 at 9:30am (30 min before 4th dose) -new results 11/05: final blood culture - s. aureus and coagulase negative staph -remove right TLC and right peripheral line on the arm today and plan to insert central line. Patient's daughter consented after hearing risks and benefits via telephone. Form completed and in patient chart. -ID, Dr. Fine, following. Appreciate recs. Endo -DM: ISS, hypoglycemia protocol Heme -anemia Hg 6.5 -> 9.6 s/p 2 PRBC -f/u H/H daily Derm -kaiawhina kohanga reo recs: prevalon boots, cavilon skin prep, frequent repositioning ppx: DVT: lovenox 40 mg sc daily GI: pepcid 20 mg IV q12h diet: orogastric tube feeding, glucerna case discussed with Dr. Michelet Stanton PGY1 <Jose Ramon Tafoya S - Last Filed: 11/05/18 18:50> CCU Subjective - Physician Review Critical Care Time Spent (in minutes): 45 CCU Objective - Vital Signs / Intake & Output Vital Signs (Last 4 hours): Vital Signs Temp Pulse Resp BP Pulse Ox 11/05/18 16:05 53 L 29 H 141/71 94 L 11/05/18 16:00 99.6 F 55 L 29 H 94 L 11/05/18 15:35 57 L 30 H 138/72 93 L 11/05/18 15:30 52 L 31 H 96 11/05/18 15:26 54 L 29 H 152/76 H 95 11/05/18 15:00 65 33 H 99 11/05/18 14:35 49 L 29 H 175/85 H 97 11/05/18 14:30 52 L 30 H 97 Intake and Output (Last 8hrs): Intake & Output 11/05/18 11/05/18 11/05/18 06:59 14:59 22:59 Intake Total 1122.6 1425.5 450.6 Output Total 450 460 120 Balance 672.6 965.5 330.6 Intake: IV 40.9 210.6 Intake, IV Amount 881.7 944.9 330.6 Right Arm midline 9.1 Right Distal Port Femoral 22.6 37.5 0 Right Medial Port Forearm 107.4 30.6 Right Proximal Port 850 800 300 Forearm Tube Feeding 200 270 120 Output: Urine 450 460 120 Urethral (Nelson) 450 460 120 Other: # Bowel Movements 0 0 0 - Medications Active Medications: Active Medications Generic Name Dose Route Start Last Admin Trade Name Freq PRN Reason Stop Dose Admin Enoxaparin Sodium 40 mg 11/04/18 10:00 11/05/18 10:46 Lovenox SC 40 mg DAILY HUMBERTO Administration Famotidine 20 mg 11/03/18 22:00 11/05/18 10:46 Pepcid IVP 20 mg Q12 HUMBERTO Administration Lactated Ringer's 1,000 mls @ 100 mls/hr 11/03/18 17:45 11/05/18 10:38 Lactated Ringer's IV 100 mls/hr .Q10H HUMBERTO Administration Norepinephrine Bitartrate 4 mg 254 mls @ 15.24 mls/hr 11/03/18 20:48 11/05/18 14:30 / Sodium Chloride IV Infused .[id number] PRN Titration TITRATE PER MD ORDER Protocol 4 MCG/MIN Piperacillin Sod/Tazobactam Sod 3.375 gm in 50 mls @ 100 mls/hr 11/04/18 01:30 11/05/18 17:07 Zosyn 3.375 Gm Iv Premix IVPB 100 mls/hr Q8H HUMBERTO Administration Protocol Dexmedetomidine HCl 200 mcg/ 50 mls @ 2.56 mls/hr 11/04/18 11:00 11/05/18 13:44 Sodium Chloride IV 0.8 mcg/kg/hr TITR PRN 10.22 mls/hr Agitation Administration Protocol 0.2 MCG/KG/HR Vancomycin HCl 1 gm/ Sodium 250 mls @ 166.7 mls/hr 11/05/18 10:00 11/05/18 10:47 Chloride IVPB 166.7 mls/hr Q24H HUMBERTO Administration Protocol Voriconazole 150 mg/ Sodium 100 mls @ 100 mls/hr 11/05/18 14:00 11/05/18 15:24 Chloride IVPB 11/06/18 02:59 100 mls/hr Q12H HUMBERTO Administration Voriconazole 100 mg/ Sodium 100 mls @ 100 mls/hr 11/06/18 14:00 Chloride IVPB Q12H HUMBERTO Insulin Human Regular 0 unit 11/04/18 00:00 11/05/18 12:15 Novolin R SC Not Given Q6H HUMBERTO Protocol Levetiracetam 500 mg 11/03/18 21:00 11/05/18 17:07 Keppra PO 500 mg BID HUMBERTO Administration Valproate Sodium 250 mg 11/03/18 21:00 11/05/18 17:07 Depakene Oral Soln PO 250 mg BID HUMBERTO Administration - Patient Studies Lab Studies: Microbiology Studies 11/03/18 16:55 Blood Culture - Preliminary Blood NO GROWTH AFTER 48 HOURS 11/03/18 22:50 MRSA Culture (Admit) - Final Nose MRSA NOT DETECTED 11/04/18 07:59 Gram Stain - Final Trachasp 11/03/18 17:05 S.aureus & Coag-Neg Staph PNA FISH - Final Blood Blood Culture - Preliminary Gram Pos Cocci In Clusters Gram Stain - Final Lab Studies 11/05/18 11/05/18 11/05/18 Range/Units 17:39 11:23 05:51 WBC (4.8-10.8) K/uL RBC (4.40-5.90) Mil/uL Hgb (12.0-18.0) g/dL Hct (35.0-51.0) % MCV (80.0-94.0) fL MCH (27.0-31.0) pg MCHC (33.0-37.0) g/dL RDW (11.5-14.5) % Plt Count (130-400) K/uL MPV (7.2-11.7) fL Neut % (Auto) (50.0-75.0) % Lymph % (Auto) (20.0-40.0) % Adams % (Auto) (0.0-10.0) % Eos % (Auto) (0.0-4.0) % Baso % (Auto) (0.0-2.0) % Neut # (Auto) (1.8-7.0) K/uL Lymph # (Auto) (1.0-4.3) K/uL Adams # (Auto) (0.0-0.8) K/uL Eos # (Auto) (0.0-0.7) K/uL Baso # (Auto) (0.0-0.2) K/uL Puncture Site pCO2 (35-45) mm/Hg pO2 (80-100) mm/Hg HCO3 (21-28) mmol/L ABG pH (7.35-7.45) ABG Total CO2 (22-28) mmol/L ABG O2 Saturation (95-98) % ABG Base Excess (-2.0-3.0) mmol/L Ruiz Test ABG Potassium (3.6-5.2) mmol/L A-a O2 Difference mm/Hg Respiratory Index Sodium (132-148) mmol/l Chloride (98-107) mmol/L Glucose (75-110) mg/dl Lactate (0.7-2.1) mmol/L Vent Mode Mechanical Rate FiO2 % Tidal Volume PEEP Potassium (3.6-5.2) mmol/L Carbon Dioxide (22-30) mmol/L Anion Gap (10-20) BUN (9-20) mg/dL Creatinine (0.8-1.5) mg/dL Est GFR ( Amer) Est GFR (Non-Af Amer) POC Glucose (mg/dL) 184 H 166 H (65-110) mg/dL Random Glucose (75-110) mg/dL Calcium (8.6-10.4) mg/dl Phosphorus (2.5-4.5) mg/dL Magnesium (1.6-2.3) mg/dL Total Bilirubin (0.2-1.3) mg/dL AST (17-59) U/L ALT (21-72) U/L Alkaline Phosphatase (38-126) U/L Total Protein (6.3-8.3) g/dL Albumin (3.5-5.0) g/dL Globulin (2.2-3.9) gm/dL Albumin/Globulin Ratio (1.0-2.1) Arterial Blood Potassium (3.6-5.2) mmol/L Random Vancomycin 17.3 ug/mL 11/05/18 11/05/18 11/05/18 Range/Units 05:51 05:51 05:19 WBC 15.1 H (4.8-10.8) K/uL RBC 3.79 L (4.40-5.90) Mil/uL Hgb 9.6 L D (12.0-18.0) g/dL Hct 30.4 L (35.0-51.0) % MCV 80.2 D (80.0-94.0) fL MCH 25.4 L (27.0-31.0) pg MCHC 31.7 L (33.0-37.0) g/dL RDW 18.9 H (11.5-14.5) % Plt Count 230 (130-400) K/uL MPV 9.8 (7.2-11.7) fL Neut % (Auto) 84.8 H (50.0-75.0) % Lymph % (Auto) 12.5 L (20.0-40.0) % Adams % (Auto) 2.5 (0.0-10.0) % Eos % (Auto) 0.1 (0.0-4.0) % Baso % (Auto) 0.1 (0.0-2.0) % Neut # (Auto) 12.8 H (1.8-7.0) K/uL Lymph # (Auto) 1.9 (1.0-4.3) K/uL Adams # (Auto) 0.4 (0.0-0.8) K/uL Eos # (Auto) 0.0 (0.0-0.7) K/uL Baso # (Auto) 0.0 (0.0-0.2) K/uL Puncture Site pCO2 (35-45) mm/Hg pO2 (80-100) mm/Hg HCO3 (21-28) mmol/L ABG pH (7.35-7.45) ABG Total CO2 (22-28) mmol/L ABG O2 Saturation (95-98) % ABG Base Excess (-2.0-3.0) mmol/L Ruiz Test ABG Potassium (3.6-5.2) mmol/L A-a O2 Difference mm/Hg Respiratory Index Sodium 147 (132-148) mmol/l Chloride 115 H (98-107) mmol/L Glucose (75-110) mg/dl Lactate (0.7-2.1) mmol/L Vent Mode Mechanical Rate FiO2 % Tidal Volume PEEP Potassium 4.0 (3.6-5.2) mmol/L Carbon Dioxide 28 (22-30) mmol/L Anion Gap 7 L (10-20) BUN 33 H (9-20) mg/dL Creatinine 1.3 (0.8-1.5) mg/dL Est GFR ( Amer) > 60 Est GFR (Non-Af Amer) 56 POC Glucose (mg/dL) 137 H (65-110) mg/dL Random Glucose 145 H (75-110) mg/dL Calcium 7.9 L (8.6-10.4) mg/dl Phosphorus 3.0 (2.5-4.5) mg/dL Magnesium 1.8 (1.6-2.3) mg/dL Total Bilirubin 0.3 (0.2-1.3) mg/dL AST 27 (17-59) U/L ALT 22 (21-72) U/L Alkaline Phosphatase 132 H D (38-126) U/L Total Protein 6.2 L (6.3-8.3) g/dL Albumin 2.2 L (3.5-5.0) g/dL Globulin 4.0 H (2.2-3.9) gm/dL Albumin/Globulin Ratio 0.6 L (1.0-2.1) Arterial Blood Potassium (3.6-5.2) mmol/L Random Vancomycin ug/mL 11/05/18 11/04/18 Range/Units 05:11 23:54 WBC (4.8-10.8) K/uL RBC (4.40-5.90) Mil/uL Hgb (12.0-18.0) g/dL Hct (35.0-51.0) % MCV (80.0-94.0) fL MCH (27.0-31.0) pg MCHC (33.0-37.0) g/dL RDW (11.5-14.5) % Plt Count (130-400) K/uL MPV (7.2-11.7) fL Neut % (Auto) (50.0-75.0) % Lymph % (Auto) (20.0-40.0) % Adams % (Auto) (0.0-10.0) % Eos % (Auto) (0.0-4.0) % Baso % (Auto) (0.0-2.0) % Neut # (Auto) (1.8-7.0) K/uL Lymph # (Auto) (1.0-4.3) K/uL Adams # (Auto) (0.0-0.8) K/uL Eos # (Auto) (0.0-0.7) K/uL Baso # (Auto) (0.0-0.2) K/uL Puncture Site Rr pCO2 38 (35-45) mm/Hg pO2 150 H (80-100) mm/Hg HCO3 28.0 (21-28) mmol/L ABG pH 7.47 H (7.35-7.45) ABG Total CO2 28.9 H (22-28) mmol/L ABG O2 Saturation 99.7 H (95-98) % ABG Base Excess 3.9 H (-2.0-3.0) mmol/L Ruiz Test Pos ABG Potassium 3.9 (3.6-5.2) mmol/L A-a O2 Difference 302.0 mm/Hg Respiratory Index 2.0 Sodium 149.0 H (132-148) mmol/l Chloride 119.0 H (98-107) mmol/L Glucose 148 H (75-110) mg/dl Lactate 1.2 (0.7-2.1) mmol/L Vent Mode Prvc Mechanical Rate 20 FiO2 70.0 % Tidal Volume 500 PEEP 5 Potassium (3.6-5.2) mmol/L Carbon Dioxide (22-30) mmol/L Anion Gap (10-20) BUN (9-20) mg/dL Creatinine (0.8-1.5) mg/dL Est GFR ( Amer) Est GFR (Non-Af Amer) POC Glucose (mg/dL) 96 (65-110) mg/dL Random Glucose (75-110) mg/dL Calcium (8.6-10.4) mg/dl Phosphorus (2.5-4.5) mg/dL Magnesium (1.6-2.3) mg/dL Total Bilirubin (0.2-1.3) mg/dL AST (17-59) U/L ALT (21-72) U/L Alkaline Phosphatase (38-126) U/L Total Protein (6.3-8.3) g/dL Albumin (3.5-5.0) g/dL Globulin (2.2-3.9) gm/dL Albumin/Globulin Ratio (1.0-2.1) Arterial Blood Potassium 3.9 (3.6-5.2) mmol/L Random Vancomycin ug/mL Laboratory Results - last 24 hr 11/04/18 11/05/18 11/05/18 23:54 05:11 05:19 WBC RBC Hgb Hct MCV MCH MCHC RDW Plt Count MPV Neut % (Auto) Lymph % (Auto) Adams % (Auto) Eos % (Auto) Baso % (Auto) Neut # (Auto) Lymph # (Auto) Adams # (Auto) Eos # (Auto) Baso # (Auto) Puncture Site Rr pCO2 38 pO2 150 H HCO3 28.0 ABG pH 7.47 H ABG Total CO2 28.9 H ABG O2 Saturation 99.7 H ABG Base Excess 3.9 H Ruiz Test Pos ABG Potassium 3.9 A-a O2 Difference 302.0 Respiratory Index 2.0 Sodium 149.0 H Chloride 119.0 H Glucose 148 H Lactate 1.2 Vent Mode Prvc Mechanical Rate 20 FiO2 70.0 Tidal Volume 500 PEEP 5 Potassium Carbon Dioxide Anion Gap BUN Creatinine Est GFR ( Amer) Est GFR (Non-Af Amer) POC Glucose (mg/dL) 96 137 H Random Glucose Calcium Phosphorus Magnesium Total Bilirubin AST ALT Alkaline Phosphatase Total Protein Albumin Globulin Albumin/Globulin Ratio Arterial Blood Potassium 3.9 Random Vancomycin 11/05/18 11/05/18 11/05/18 05:51 05:51 05:51 WBC 15.1 H RBC 3.79 L Hgb 9.6 L D Hct 30.4 L MCV 80.2 D MCH 25.4 L MCHC 31.7 L RDW 18.9 H Plt Count 230 MPV 9.8 Neut % (Auto) 84.8 H Lymph % (Auto) 12.5 L Adams % (Auto) 2.5 Eos % (Auto) 0.1 Baso % (Auto) 0.1 Neut # (Auto) 12.8 H Lymph # (Auto) 1.9 Adams # (Auto) 0.4 Eos # (Auto) 0.0 Baso # (Auto) 0.0 Puncture Site pCO2 pO2 HCO3 ABG pH ABG Total CO2 ABG O2 Saturation ABG Base Excess Ruiz Test ABG Potassium A-a O2 Difference Respiratory Index Sodium 147 Chloride 115 H Glucose Lactate Vent Mode Mechanical Rate FiO2 Tidal Volume PEEP Potassium 4.0 Carbon Dioxide 28 Anion Gap 7 L BUN 33 H Creatinine 1.3 Est GFR ( Amer) > 60 Est GFR (Non-Af Amer) 56 POC Glucose (mg/dL) Random Glucose 145 H Calcium 7.9 L Phosphorus 3.0 Magnesium 1.8 Total Bilirubin 0.3 AST 27 ALT 22 Alkaline Phosphatase 132 H D Total Protein 6.2 L Albumin 2.2 L Globulin 4.0 H Albumin/Globulin Ratio 0.6 L Arterial Blood Potassium Random Vancomycin 17.3 11/05/18 11/05/18 11:23 17:39 WBC RBC Hgb Hct MCV MCH MCHC RDW Plt Count MPV Neut % (Auto) Lymph % (Auto) Adams % (Auto) Eos % (Auto) Baso % (Auto) Neut # (Auto) Lymph # (Auto) Adams # (Auto) Eos # (Auto) Baso # (Auto) Puncture Site pCO2 pO2 HCO3 ABG pH ABG Total CO2 ABG O2 Saturation ABG Base Excess Ruiz Test ABG Potassium A-a O2 Difference Respiratory Index Sodium Chloride Glucose Lactate Vent Mode Mechanical Rate FiO2 Tidal Volume PEEP Potassium Carbon Dioxide Anion Gap BUN Creatinine Est GFR ( Amer) Est GFR (Non-Af Amer) POC Glucose (mg/dL) 166 H 184 H Random Glucose Calcium Phosphorus Magnesium Total Bilirubin AST ALT Alkaline Phosphatase Total Protein Albumin Globulin Albumin/Globulin Ratio Arterial Blood Potassium Random Vancomycin Radiology Impressions: Radiology Impressions Chest X-Ray 11/05/18 04:00 IMPRESSION: Similar bilateral coalescent interstitial and airspace opacities as detailed above. No interval pathology noted. Chest X-Ray 11/05/18 13:15 IMPRESSION: Interval insertion right internal jugular vein central catheter tip superior vena cava. No pneumothorax appreciated. Extensive bilateral interstitial and airspace pathologies as detailed above. Endotracheal tube and NG tube in satisfactory position. Attending/Attestation - Attestation I have personally seen and examined this patient.: Yes I have fully participated in the care of the patient.: Yes I have reviewed all pertinent clinical information: Yes Notes (Text): 11/05/18 18:20 Patient seen and examined in the intensive care unit. continue ventilatory support IV sedation IV antibiotics Reduce FiO2 as tolerated Follow-up chest x-ray and ABG
--- NOTE | 2018-11-05 09:26 | RAD ---
Date of service: 11/05/2018 HISTORY: intubated COMPARISON: 11/04/2018 and 11/03/2018 FINDINGS: LUNGS: Coalescent interstitial and patchy airspace opacities appear similar-these are most accentuated at the right lung base and left perihilar location and are not significantly changed with the prior exams. Endotracheal tube approximately 3 to 4 cm cephalad to the pito. NG tube tip in stomach. PLEURA: No significant pleural effusion identified, no pneumothorax apparent. CARDIOVASCULAR: There is presence of aortic atherosclerotic calcification on x-ray. Heart size probably top-normal. In addition to the interstitial and airspace infiltrates-concomitant pulmonary venous congestion cannot be excluded. No worsening suggested OSSEOUS STRUCTURES: No significant abnormalities. VISUALIZED UPPER ABDOMEN: Normal. OTHER FINDINGS: None. IMPRESSION: Similar bilateral coalescent interstitial and airspace opacities as detailed above. No interval pathology noted.
[2018-11-05] MEDS: levETIRAcetam 100 mg/ml (5ml) Oral Syringe PO SCH ×2 (10:46→17:07)
[2018-11-05] MEDS: Valproic Acid 250 mg/5 ml UD Cup PO SCH ×2 (10:46→17:07)
[2018-11-05] MEDS: Enoxaparin 40 mg Syringe SC SCH (10:46)
--- NOTE | 2018-11-05 12:05 | CP.PCM.CON ---
History of Present Illness - History of Present Illness History of Present Illness: dictated Past Patient History - Infectious Disease Hx of Infectious Diseases: None - Past Medical History & Family History Past Medical History?: Yes - Past Social History Smoking Status: Never Smoked Home Situation {Lives}: Skilled Nursing - CARDIAC Hx Hypercholesterolemia: Yes Hx Hypertension: Yes - PULMONARY Hx Pneumonia: Yes (Aspiration) - NEUROLOGICAL Hx Alzheimer's Disease: Yes Hx Dementia: Yes Hx Seizures: Yes - HEENT Hx HEENT Problems: Yes Hx Cataracts: Yes (Both Cataract Surgery) - RENAL Hx Chronic Kidney Disease: No - ENDOCRINE/METABOLIC Hx Endocrine Disorders: Yes Hx Diabetes Mellitus Type 2: Yes - HEMATOLOGICAL/ONCOLOGICAL Hx Blood Disorders: No - INTEGUMENTARY Hx Dermatological Problems: No - MUSCULOSKELETAL/RHEUMATOLOGICAL Hx Arthritis: Yes Hx Fractures: Yes (non displaced avulsion fracture of right talus) - GASTROINTESTINAL Hx Gastrointestinal Disorders: Yes Hx Gastroesophageal Reflux: Yes - GENITOURINARY/GYNECOLOGICAL Hx Genitourinary Disorders: Yes Hx Prostate Problems: Yes (BPH) - PSYCHIATRIC Hx Anxiety: Yes Hx Bipolar Disorder: Yes Hx Depression: Yes Hx Substance Use: No - SURGICAL HISTORY Hx Appendectomy: Yes - ANESTHESIA Hx Anesthesia: Yes Hx Anesthesia Reactions: No Hx Malignant Hyperthermia: No Meds Allergies/Adverse Reactions: Allergies Allergy/AdvReac Type Severity Reaction Status Date / Time No Known Allergies Allergy Verified 11/03/18 16:30 - Medications Medications: Current Medications Enoxaparin Sodium (Lovenox) 40 mg SC DAILY [facility] Last Admin: 11/05/18 10:46 Dose: 40 mg Famotidine (Pepcid) 20 mg IVP Q12 [facility] Last Admin: 11/05/18 10:46 Dose: 20 mg Lactated Ringer's (Lactated Ringer's) 1,000 mls @ 100 mls/hr IV .Q10H [facility] Last Admin: 11/05/18 10:38 Dose: 100 mls/hr Norepinephrine Bitartrate 4 mg (/ Sodium Chloride) 254 mls @ 15.24 mls/hr IV .[id number] PRN; Protocol PRN Reason: TITRATE PER MD ORDER Last Titration: 11/05/18 05:43 Dose: 0 mcg/min, 0 mls/hr Piperacillin Sod/Tazobactam Sod (Zosyn 3.375 Gm Iv Premix) 3.375 gm in 50 mls @ 100 mls/hr IVPB Q8H [facility]; Protocol Last Admin: 11/05/18 10:48 Dose: 100 mls/hr Dexmedetomidine HCl 200 mcg/ (Sodium Chloride) 50 mls @ 2.56 mls/hr IV TITR PRN; Protocol PRN Reason: Agitation Last Titration: 11/05/18 10:40 Dose: 0.8 mcg/kg/hr, 10.22 mls/hr Vancomycin HCl 1 gm/ Sodium (Chloride) 250 mls @ 166.7 mls/hr IVPB Q24H [facility]; Protocol Last Admin: 11/05/18 10:47 Dose: 166.7 mls/hr Insulin Human Regular (Novolin R) 0 unit SC Q6H [facility]; Protocol Last Admin: 11/05/18 05:29 Dose: Not Given Levetiracetam (Keppra) 500 mg PO BID [facility] Last Admin: 11/05/18 10:46 Dose: 500 mg Valproate Sodium (Depakene Oral Soln) 250 mg PO BID [facility] Last Admin: 11/05/18 10:46 Dose: 250 mg Results - Vital Signs Recent Vital Signs: Last Vital Signs Temp 98.9 F 11/05/18 08:00 Pulse 62 11/05/18 11:35 Resp 32 H 11/05/18 11:35 BP 142/73 11/05/18 11:35 Pulse Ox 96 11/05/18 11:35 - Labs Result Diagrams: 11/05/18 05:51 11/05/18 05:51 Labs: Laboratory Results - last 24 hr 11/04/18 11/04/18 11/04/18 06:55 09:00 11:22 WBC RBC Hgb Hct MCV MCH MCHC RDW Plt Count MPV Neut % (Auto) Lymph % (Auto) Garland % (Auto) Eos % (Auto) Baso % (Auto) Neut # (Auto) Lymph # (Auto) Garland # (Auto) Eos # (Auto) Baso # (Auto) Puncture Site pCO2 pO2 HCO3 ABG pH ABG Total CO2 ABG O2 Saturation ABG Base Excess Ruiz Test ABG Potassium A-a O2 Difference Respiratory Index Sodium Chloride Glucose Lactate Vent Mode Mechanical Rate FiO2 Tidal Volume PEEP Potassium Carbon Dioxide Anion Gap BUN Creatinine Est GFR ( Amer) Est GFR (Non-Af Amer) POC Glucose (mg/dL) 99 87 Random Glucose Calcium Phosphorus Magnesium Total Bilirubin AST ALT Alkaline Phosphatase Total Protein Albumin Globulin Albumin/Globulin Ratio Arterial Blood Potassium Random Vancomycin Blood Type B POSITIVE Antibody Screen Negative 11/04/18 11/04/18 11/04/18 12:20 17:29 23:54 WBC RBC Hgb Hct MCV MCH MCHC RDW Plt Count MPV Neut % (Auto) Lymph % (Auto) Garland % (Auto) Eos % (Auto) Baso % (Auto) Neut # (Auto) Lymph # (Auto) Garland # (Auto) Eos # (Auto) Baso # (Auto) Puncture Site Lf pCO2 41 pO2 140 H HCO3 25.9 ABG pH 7.41 ABG Total CO2 27.3 ABG O2 Saturation 99.7 H ABG Base Excess 1.2 Ruiz Test Na ABG Potassium 3.7 A-a O2 Difference 308.0 Respiratory Index 2.2 Sodium 150.0 H Chloride 120.0 H Glucose 82 Lactate 1.0 Vent Mode Mechanical Rate FiO2 70.0 Tidal Volume 500 PEEP 5 Potassium Carbon Dioxide Anion Gap BUN Creatinine Est GFR ( Amer) Est GFR (Non-Af Amer) POC Glucose (mg/dL) 72 96 Random Glucose Calcium Phosphorus Magnesium Total Bilirubin AST ALT Alkaline Phosphatase Total Protein Albumin Globulin Albumin/Globulin Ratio Arterial Blood Potassium 3.7 Random Vancomycin Blood Type Antibody Screen 11/05/18 11/05/18 11/05/18 05:11 05:19 05:51 WBC 15.1 H RBC 3.79 L Hgb 9.6 L D Hct 30.4 L MCV 80.2 D MCH 25.4 L MCHC 31.7 L RDW 18.9 H Plt Count 230 MPV 9.8 Neut % (Auto) 84.8 H Lymph % (Auto) 12.5 L Garland % (Auto) 2.5 Eos % (Auto) 0.1 Baso % (Auto) 0.1 Neut # (Auto) 12.8 H Lymph # (Auto) 1.9 Garland # (Auto) 0.4 Eos # (Auto) 0.0 Baso # (Auto) 0.0 Puncture Site Rr pCO2 38 pO2 150 H HCO3 28.0 ABG pH 7.47 H ABG Total CO2 28.9 H ABG O2 Saturation 99.7 H ABG Base Excess 3.9 H Ruiz Test Pos ABG Potassium 3.9 A-a O2 Difference 302.0 Respiratory Index 2.0 Sodium 149.0 H Chloride 119.0 H Glucose 148 H Lactate 1.2 Vent Mode Prvc Mechanical Rate 20 FiO2 70.0 Tidal Volume 500 PEEP 5 Potassium Carbon Dioxide Anion Gap BUN Creatinine Est GFR ( Amer) Est GFR (Non-Af Amer) POC Glucose (mg/dL) 137 H Random Glucose Calcium Phosphorus Magnesium Total Bilirubin AST ALT Alkaline Phosphatase Total Protein Albumin Globulin Albumin/Globulin Ratio Arterial Blood Potassium 3.9 Random Vancomycin Blood Type Antibody Screen 11/05/18 11/05/18 05:51 05:51 WBC RBC Hgb Hct MCV MCH MCHC RDW Plt Count MPV Neut % (Auto) Lymph % (Auto) Garland % (Auto) Eos % (Auto) Baso % (Auto) Neut # (Auto) Lymph # (Auto) Garland # (Auto) Eos # (Auto) Baso # (Auto) Puncture Site pCO2 pO2 HCO3 ABG pH ABG Total CO2 ABG O2 Saturation ABG Base Excess Ruiz Test ABG Potassium A-a O2 Difference Respiratory Index Sodium 147 Chloride 115 H Glucose Lactate Vent Mode Mechanical Rate FiO2 Tidal Volume PEEP Potassium 4.0 Carbon Dioxide 28 Anion Gap 7 L BUN 33 H Creatinine 1.3 Est GFR ( Amer) > 60 Est GFR (Non-Af Amer) 56 POC Glucose (mg/dL) Random Glucose 145 H Calcium 7.9 L Phosphorus 3.0 Magnesium 1.8 Total Bilirubin 0.3 AST 27 ALT 22 Alkaline Phosphatase 132 H D Total Protein 6.2 L Albumin 2.2 L Globulin 4.0 H Albumin/Globulin Ratio 0.6 L Arterial Blood Potassium Random Vancomycin 17.3 Blood Type Antibody Screen
[2018-11-05] MEDS ORDERED: Propofol 10 mg/ml Inj (20 ML) IV ONE (12:50)
[2018-11-05] MEDS ORDERED: Propofol 10 mg/ml Inj (20 ML) ONE (12:58)
--- NOTE | 2018-11-05 14:13 | CP.PCM.PN ---
Subjective - Date & Time of Evaluation Date of Evaluation: 11/05/18 Time of Evaluation: 11:45 - Subjective Subjective: clinically same Objective - Vital Signs/Intake and Output Vital Signs (last 24 hours): Temp Pulse Resp BP Pulse Ox 99.7 F H 51 L 27 H 171/78 H 97 11/05/18 12:00 11/05/18 12:35 11/05/18 12:35 11/05/18 12:35 11/05/18 12:35 Intake and Output: 11/05/18 11/05/18 06:59 18:59 Intake Total 1765.1 974.6 Output Total 700 360 Balance 1065.1 614.6 - Medications Medications: Current Medications Enoxaparin Sodium (Lovenox) 40 mg SC DAILY [facility] Last Admin: 11/05/18 10:46 Dose: 40 mg Famotidine (Pepcid) 20 mg IVP Q12 [facility] Last Admin: 11/05/18 10:46 Dose: 20 mg Lactated Ringer's (Lactated Ringer's) 1,000 mls @ 100 mls/hr IV .Q10H [facility] Last Admin: 11/05/18 10:38 Dose: 100 mls/hr Norepinephrine Bitartrate 4 mg (/ Sodium Chloride) 254 mls @ 15.24 mls/hr IV .[id number] PRN; Protocol PRN Reason: TITRATE PER MD ORDER Last Titration: 11/05/18 05:43 Dose: 0 mcg/min, 0 mls/hr Piperacillin Sod/Tazobactam Sod (Zosyn 3.375 Gm Iv Premix) 3.375 gm in 50 mls @ 100 mls/hr IVPB Q8H [facility]; Protocol Last Admin: 11/05/18 10:48 Dose: 100 mls/hr Dexmedetomidine HCl 200 mcg/ (Sodium Chloride) 50 mls @ 2.56 mls/hr IV TITR PRN; Protocol PRN Reason: Agitation Last Admin: 11/05/18 13:44 Dose: 0.8 mcg/kg/hr, 10.22 mls/hr Vancomycin HCl 1 gm/ Sodium (Chloride) 250 mls @ 166.7 mls/hr IVPB Q24H [facility]; Protocol Last Admin: 11/05/18 10:47 Dose: 166.7 mls/hr Voriconazole 150 mg/ Sodium (Chloride) 100 mls @ 100 mls/hr IVPB Q12H [facility] Stop: 11/06/18 02:59 Voriconazole 100 mg/ Sodium (Chloride) 100 mls @ 100 mls/hr IVPB Q12H [facility] Insulin Human Regular (Novolin R) 0 unit SC Q6H [facility]; Protocol Last Admin: 11/05/18 12:15 Dose: Not Given Levetiracetam (Keppra) 500 mg PO BID [facility] Last Admin: 11/05/18 10:46 Dose: 500 mg Valproate Sodium (Depakene Oral Soln) 250 mg PO BID [facility] Last Admin: 11/05/18 10:46 Dose: 250 mg - Labs Labs: 11/05/18 05:51 11/05/18 05:51 PT 18.1 SECONDS (9.7-12.2) H 11/03/18 16:59 INR 1.7 11/03/18 16:59 APTT 46 SECONDS (21-34) H 11/03/18 16:59 - Constitutional Appears: Well - Head Exam Head Exam: ATRAUMATIC, NORMAL INSPECTION, NORMOCEPHALIC - Eye Exam Eye Exam: EOMI, Normal appearance, PERRL Pupil Exam: NORMAL ACCOMODATION, PERRL - ENT Exam ENT Exam: Mucous Membranes Moist, Normal Exam - Neck Exam Neck Exam: Full ROM, Normal Inspection. absent: Lymphadenopathy - Respiratory Exam Respiratory Exam: Decreased Breath Sounds - Cardiovascular Exam Cardiovascular Exam: REGULAR RHYTHM, +S1, +S2 - GI/Abdominal Exam GI & Abdominal Exam: Soft, Diminished Bowel Sounds - Rectal Exam Rectal Exam: Deferred
--- NOTE | 2018-11-05 15:19 | RAD ---
Date of service: 11/05/2018 HISTORY: central line placement COMPARISON: 11/05/2018 at 0652 hr FINDINGS: LUNGS: The bilateral coalescent interstitial and patchy airspace opacities are similar. The endotracheal tube tip is approximately 4 cm cephalad to the pito. PLEURA: No significant pleural effusion identified, no pneumothorax apparent. CARDIOVASCULAR: There is presence of aortic atherosclerotic calcification on x-ray. Heart size top normal. As before, interstitial pulmonary edema/pulmonary venous congestion along with the airspace opacities is compatible with this appearance No worsening pulmonary venous congestion appreciated. Interval insertion right central line internal jugular vein approach tip in superior vena cava. OSSEOUS STRUCTURES: Bilateral shoulder arthrosis. VISUALIZED UPPER ABDOMEN: Nasogastric tube in stomach. OTHER FINDINGS: None. IMPRESSION: Interval insertion right internal jugular vein central catheter tip superior vena cava. No pneumothorax appreciated. Extensive bilateral interstitial and airspace pathologies as detailed above. Endotracheal tube and NG tube in satisfactory position.
[2018-11-05] MEDS: VORICONAZOLE IVPB SCH (15:24)
[2018-11-05] MEDS: SODIUM CHLORIDE 0.9% IVPB SCH (15:24)
--- NOTE | 2018-11-05 16:02 | CP.PCM.PCO ---
Physician Communication Note - Physician Communication Note Physician Communication Note: see above
--- NOTE | 2018-11-05 16:07 | PCM.PROC ---
Procedures Attestation:: I certify that I have explained the specified Operation(s) or Procedure(s), risks, benefits and reasonable alternatives to the Patient and/or other person responsible. The opportunity was given to ask questions and all questions answered - Central Line Placement Right Internal Jugular Aseptic technique was employed throughout the procedure: Hand Hygiene done prior to procedure, Full sterile barriers (mask, hair cover, sterile gown, sterile gloves), Full body sterile drape, Chloraprep Antiseptic: 30 second prep for IJ or SC sites Central Line Prep: Chlorhexidine-Alcohol Combination Ultrasound Used for Placement: Yes Central Line Lumen Inserted: triple Post Procedure: Sutured in Place, All Ports Aspirated, Flushed, Capped Secured by: Suture Post procedure dressing: Chlorhexidine disc (Biopatch) Post Procedure X-Ray: Yes Patient Tolerated Procedure: Well Immediate Complications: None Additional Comments: Biopatch placed surrounding skin in the insertion site. Tegaderm placed above after bilateral suturing. Procedure performed by Dr. Tafoya, attending and Dr. Stanton, PGY1
[2018-11-05] MEDS ORDERED: Sodium Chloride 0.9% 1,000 ML IV ONE (17:41)
--- NOTE | 2018-11-05 19:04 | CARD ---
APPROVED REPORT Date of service: 11/05/2018 EXAM: Two-dimensional and M-mode echocardiogram with Doppler and color Doppler. Other Information Quality : Technically LimitedRhythm : INDICATION Infection:Rule out subacute bacterial endocarditis 2D DIMENSIONS IVSd0.8 (0.7-1.1cm)LVDd3.9 (3.9-5.9cm) PWd1.0 (0.7-1.1cm)LVDs2.5 (2.5-4.0cm) FS (%) 36.9 %LVEF (%)67.5 (>50%) M-Mode DIMENSIONS Left Atrium (MM)4.61 (2.5-4.0cm)IVSd0.71 (0.7-1.1cm) Aortic Root3.59 (2.2-3.7cm)LVDd4.73 (4.0-5.6cm) Aortic Cusp Exc.2.65 (1.5-2.0cm)PWd0.85 (0.7-1.1cm) FS (%) 43 %LVDs2.72 (2.0-3.8cm) LVEF (%)74 (>50%) Mitral Valve MV E Uikfcegk14.3cm/sMV A Bwxoqgme37.9cm/sE/A ratio0.5 TDI Lateral E' Peak V6.93cm/sMedial E' Peak V8.11cm/sE/Lateral E'6.2 E/Medial E'5.3 Tricuspid Valve TR Peak [id number]/sTR Peak [id number] LEFT VENTRICLE The left ventricle is normal size. There is normal left ventricular wall thickness. Left ventricle systolic function is normal. The Ejection Fraction is 60-65%. There is normal LV segmental wall motion. Transmitral Doppler flow pattern is Grade I-abnormal relaxation pattern. There is no ventricular septal defect visualized. RIGHT VENTRICLE The right ventricle is normal size. The right ventricular systolic function is normal. ATRIA The left atrium is mildly dilated. The right atrium size is normal. AORTIC VALVE The aortic valve is moderately thickened. Thiker than 06/05 The aortic valve is tri-cuspid. No Doppler. No Doppler. MITRAL VALVE Mitral annular calcification is mild. There is no evidence of mitral valve prolapse. No Doppler. TRICUSPID VALVE The tricuspid valve is not well visualized. There is mild to moderate tricuspid regurgitation. Right ventricular systolic pressure is estimated at 50-60 mmHg. There is moderate-severe pulmonary hypertension. PULMONIC VALVE The pulmonic valve is not well visualized. No Doppler. GREAT VESSELS The aortic root is normal in size. The ascending aorta is normal in size. The IVC was not visualized. PERICARDIAL EFFUSION There is no pericardial effusion. <Conclusion> Left ventricle systolic function is normal. The Ejection Fraction is 60-65%. Transmitral Doppler flow pattern is Grade I-abnormal relaxation pattern. There is moderate-severe pulmonary hypertension. The aortic valve is moderately thickened. Thiker than 06/05, needs OLEG for further evaluation of endocarditis
[2018-11-05] MEDS ORDERED: Acetaminophen 650mg/20.3ml solution UD PO STA (20:13)
[2018-11-06] MEDS: Piperacill/Tazo 3.375gm in Dex 3.375 GM/50 ML BAG IVPB SCH ×3 (00:59→17:01)
[2018-11-06] MEDS: SODIUM CHLORIDE 0.9% IVPB SCH ×2 (01:00→14:02)
[2018-11-06] MEDS: Lactated Ringer's 1,000 ML IV SCH ×3 (01:00→15:21)
[2018-11-06] MEDS: VORICONAZOLE IVPB SCH ×2 (01:00→14:02)
[2018-11-06 05:45] LABS: BASO % 0.3 % (0.0-2.0); EOS # 0.1 K/uL (0.0-0.7); EOS % 0.5 % (0.0-4.0); HEMOGLOBIN 9.9 g/dL (12.0-18.0); LYMPH % 18.5 % (20.0-40.0); MEAN CELL VOLUME 80.6 fL (80.0-94.0); MEAN CORPUSCULAR HEMOGLOBIN 25.8 pg (27.0-31.0); MEAN PLATELET VOLUME 9.8 fL (7.2-11.7); MONO # 0.3 K/uL (0.0-0.8); MONO % 2.6 % (0.0-10.0); NEUT # 8.5 K/uL (1.8-7.0); NEUT % 78.1 % (50.0-75.0); RBC 3.83 Mil/uL (4.40-5.90); RED CELL DISTRIBUTION WIDTH 19.7 % (11.5-14.5); WHITE BLOOD COUNT 10.9 K/uL (4.8-10.8)
[2018-11-06 05:45] LABS: ABG ALLEN TEST POS; ARTERIAL BLOOD GAS HCO3 27.6 mmol/L (21-28); ARTERIAL BLOOD GAS O2 SAT 99.2 % (95-98); ARTERIAL BLOOD GAS PCO2 36 mm/Hg (35-45); ARTERIAL BLOOD GAS PH 7.48 (7.35-7.45); ARTERIAL BLOOD GAS PO2 101 mm/Hg (80-100); ARTERIAL BLOOD GAS TCO2 27.9 mmol/L (22-28)
[2018-11-06] MEDS: (Novolin R) Insulin Human Regular 100 units/ml vial SC SCH ×3 (05:51→18:34)
[2018-11-06 06:01] LABS: ALB/GLOB RATIO 0.6 (1.0-2.1); ALBUMIN 2.1 g/dL (3.5-5.0); ALT/SGPT 19 U/L (21-72); AST/SGOT 25 U/L (17-59); BLOOD UREA NITROGEN 34 mg/dL (9-20); CALCIUM 7.8 mg/dl (8.6-10.4); GFR NON-AFRICAN AMERICAN > 60
--- NOTE | 2018-11-06 06:33 | CON ---
DATE: 11/05/2018 REASON FOR CONSULTATION: I am asked to see this patient, Dennis Genao. His blood culture, one of them, came out positive. HISTORY OF PRESENT ILLNESS: This is a 63-year-old male. He has a history of paraplegia and respiratory issues. Actually, he was in July admitted for similar complaints. He is from detention. He came in with "sepsis" and received antibiotics, Avelox and Zosyn. One of his cultures came out positive for gram-positive cocci and so I am asked to evaluate him. The patient remains intubated secondary to respiratory failure. He was brought in via the EMS from the detention as he was found to be short of breath and lethargic, and he was suspected of having aspiration pneumonia. Last time also he had similar complaints. He also has a midline, which they are going to remove today. I am told that there was a femoral line which was placed in the right groin and he had got sepsis, which will also be changed today, I am told by the nurse. The patient is not able to give any history. Most of the history is taken from the chart. He is intubated, but he is opening his eyes now. PAST MEDICAL HISTORY: He has a past medical history of paraplegia, Alzheimer's, anxiety, arthritis, bipolar disorder, CVA, diabetes mellitus, hypertension, hypercholesterolemia, pneumonia and seizures. There were aspiration pneumonias in the past. He never smoked. He comes from the detention. REVIEW OF SYSTEMS: CARDIAC: He has high cholesterol, hypertension. PULMONARY: He has had pneumonia. NEUROLOGICAL: He has Alzheimer's disease, dementia, seizure disorder and depression also. HEENT: He has had cataract surgeries in both eyes. RENAL: He has no chronic kidney disease. ENDOCRINE: He has diabetes type 2. HEMATOLOGICAL: No blood disorders. No skin problems. He does have a left heel which shows a discolored skin. Has deep tissue injury to the left heel. RHEUMATOLOGICAL: He has a history of arthritis, history of fractures. He has a nondisplaced avulsion fracture of right talus. GASTROINTESTINAL: He has a history of gastrointestinal disorders, history of gastroesophageal reflux disease. GENITOURINARY: He has a history of BPH in the past and disorders. PSYCH: He has a history of anxiety, bipolar depression. No history of substance abuse. SURGICAL HISTORY: Appendicectomy in the past. He has a PICC line in the right arm, which will be discontinued. MEDICATIONS: He is on Lovenox, Pepcid, Ringer's Lactate. He is on Levophed. He is on Zosyn. He is on dexmedetomidine which is probably for his agitation. He is on vancomycin 1 g daily. I just started him on voriconazole as his culture report, which was done, came back as Aspergillus niger and this report probably came after he was discharged and he did well. He is also on Keppra and Depakene. Also, he had admission in July. ALLERGIES: HE IS NOT ALLERGIC TO ANY MEDICINES. He has occasional movements of his lower extremities, but no response. He was lethargic. He was anemic also, very severely anemic. He did come in with a fever of 102.8, pulse of 106, respiratory rate of 28, blood pressure 92/62. Hemoglobin of 7.9, hematocrit 26.3. He was admitted with a BUN of 49 and creatinine of 1.6. PHYSICAL EXAMINATION VITAL SIGNS: I find his temperature is 98.9. Pulse is only 46 this morning which was recorded. He is on mechanical ventilator. Respirations 20, saturation is 99%. His last blood pressure is 171/78 now, so he will be getting off the Levophed. HEENT: Head is atraumatic and normocephalic. He has altered mental status; however, eye movements are unremarkable. He is intubated. NECK: Supple. JVP is flat. LUNGS: There are decreased breath sounds bilaterally. HEART: S1 and S2 regular. No murmurs appreciated. Has a right arm PICC line and a midline. Right groin, he has a triple lumen at this time. ABDOMEN: When I am seeing, abdomen is soft and nontender. No guarding. No rigidity present. EXTREMITIES: Upper and lower extremities unremarkable. Left heel has a deep tissue injury. SKIN: Warm to touch. NEURO: He is alert, looks like opening his eyes today. LABORATORY DATA: Showing white count is 15.1, hemoglobin 9.6, hematocrit 30.4, platelet count is 230. Hemoglobin was 6.5 yesterday, has not received transfusion. Neutrophils were 84.8 and bands were 12 when he came in. At this time, no bands are reported. His chemistries show sodium is 147, potassium is 4, chloride is 115, CO2 is 28, BUN is 7, creatinine is 1.3. Urine does appear little dark. His sodium is high. He has hypernatremia, so he is probably a little dry. Urine was done. UA shows 2+ protein, 1+ glucose, 1+ blood, wbc's 12, rbc's 17, bacteria rare and hyaline casts show renal issues. Chest x-ray was done this morning, which shows similar bilateral interstitial and air space opacities as detailed above. In the __lungs___ interstitial and patchy airspace opacities appear similar, these are most accentuated at the right lung base and left perihilar location and not significantly changed from the prior exam. His blood culture one was positive GPCs in clusters and it is reported as coagulase-negative Staph by __blood___ one culture is negative, it is unclear whether this is a contaminant or real. He did have a PICC line when he came with and the groin line was inserted yesterday in emergency, so we are going to change that and we have requested the tip to be cultured, but it will depend on the policies in place by the infection control nurse here MRSA, not detected. PEG site sputum is pending. I did go with the micro all visits and . We also did mycobacterial culture which showed no AFB. He had a _sputum done for AFB which_ No mycobacterium species after six weeks of incubation and there was 913 yeast and fungal culture done which showed growth of Aspergillus niger. So at this time I would add VFEND. At this time, I am giving him 150 mg every 12 hours at 6 mg/kg dose for 24 hours and then we will make it 4 mg/kg. IMPRESSION: This patient came in with "sepsis" and in septic shock even with _antibiotics____. He is also in acute respiratory failure with bilateral pneumonia which could be aspiration pneumonia or Aspergillus that we isolated on last month admission __will continue vancomycin and Zosyn. Has diabetes, severe anemia, seizure disorder, renal insufficiency, dementia, history of cerebrovascular accident with paraplegia. PLAN: Continue vancomycin. Monitor the labs _and____ and also to continue vancomycin, continue Zosyn and VFEND at this time. Jenna Fine MD [facility]
--- NOTE | 2018-11-06 07:12 | CP.CCUPN ---
<Francisca Stanton - Last Filed: 11/06/18 11:18> CCU Subjective - Physician Review Subjective (Free Text): 11/05/18 08:22 ICU Progress Note for Dr. Tafoya Patient seen and examined at bedside this morning. Patient resting comfortably in bed, easily arousable. Due to patient condition, ROS unable to be obtained. Per RN no acute overnight events. 11/05/18 11:48 11/06/18 07:11 11/06/18 11:18 CCU Objective - Vital Signs / Intake & Output Vital Signs (Last 4 hours): Vital Signs Temp Pulse Resp BP Pulse Ox 11/06/18 06:01 136/67 11/06/18 06:00 47 L 21 100 11/06/18 05:06 60 24 111/70 99 11/06/18 04:35 53 L 24 125/66 100 11/06/18 04:05 54 L 23 115/62 100 11/06/18 04:00 100.5 F H 11/06/18 03:35 55 L 21 106/65 100 Intake and Output (Last 8hrs): Intake & Output 11/05/18 11/06/18 11/06/18 22:59 06:59 14:59 Intake Total 1327.27 1354.42 Output Total 985 485 Balance 342.27 869.42 Weight 119 lb 12.8 oz Intake: IV 78.07 10.22 Intake, IV Amount 829.2 984.2 Right Medial Port 79.2 84.2 Internal Jugular Right Proximal Port 750 900 Internal Jugular Tube Feeding 420 360 Output: Urine 985 485 Urethral (Nelson) 985 485 Other: # Bowel Movements 0 0 - Physical Exam Head: Positive for: Atraumatic, Normocephalic Extroacular Muscles: Positive for: EOMI Conjunctiva: Positive for: Normal Respiratory/Chest: Positive for: Wheezes (L>R) Cardiovascular: Positive for: Regular Rate and Rhythm Abdomen: Negative for: Tenderness, Distention, Rebound, Guarding Upper Extremity: Positive for: Normal Inspection Lower Extremity: Positive for: Normal Inspection Neurological: Positive for: Other (left leg with sudden kicks) Skin: Positive for: Warm, Dry, Normal Color Psychiatric: Positive for: Alert - Medications Active Medications: Active Medications Generic Name Dose Route Start Last Admin Trade Name Freq PRN Reason Stop Dose Admin Enoxaparin Sodium 40 mg 11/04/18 10:00 11/05/18 10:46 Lovenox SC 40 mg DAILY HUMBERTO Administration Famotidine 20 mg 11/03/18 22:00 11/05/18 22:05 Pepcid IVP 20 mg Q12 HUMBERTO Administration Lactated Ringer's 1,000 mls @ 100 mls/hr 11/03/18 17:45 11/06/18 05:48 Lactated Ringer's IV Not Given .Q10H HUMBERTO Norepinephrine Bitartrate 4 mg 254 mls @ 15.24 mls/hr 11/03/18 20:48 11/05/18 14:30 / Sodium Chloride IV Infused .[id number] PRN Titration TITRATE PER MD ORDER Protocol 4 MCG/MIN Piperacillin Sod/Tazobactam Sod 3.375 gm in 50 mls @ 100 mls/hr 11/04/18 01:30 11/06/18 00:59 Zosyn 3.375 Gm Iv Premix IVPB 100 mls/hr Q8H HUMBERTO Administration Protocol Dexmedetomidine HCl 200 mcg/ 50 mls @ 2.56 mls/hr 11/04/18 11:00 11/06/18 00:00 Sodium Chloride IV 0.3 mcg/kg/hr TITR PRN 3.83 mls/hr Agitation Administration Protocol 0.2 MCG/KG/HR Vancomycin HCl 1 gm/ Sodium 250 mls @ 166.7 mls/hr 11/05/18 10:00 11/05/18 10:47 Chloride IVPB 166.7 mls/hr Q24H HUMBERTO Administration Protocol Voriconazole 100 mg/ Sodium 100 mls @ 100 mls/hr 11/06/18 14:00 Chloride IVPB Q12H [facility] Insulin Human Regular 0 unit 11/04/18 00:00 11/06/18 05:51 Novolin R SC 2 units Q6H HUMBERTO Administration Protocol Levetiracetam 500 mg 11/03/18 21:00 11/05/18 17:07 Keppra PO 500 mg BID HUMBERTO Administration Valproate Sodium 250 mg 11/03/18 21:00 11/05/18 17:07 Depakene Oral Soln PO 250 mg BID HUMBERTO Administration - Patient Studies Lab Studies: Microbiology Studies 11/03/18 16:55 Blood Culture - Preliminary Blood NO GROWTH AFTER 48 HOURS 11/03/18 22:50 MRSA Culture (Admit) - Final Nose MRSA NOT DETECTED 11/04/18 07:59 Gram Stain - Final Trachasp 11/03/18 17:05 S.aureus & Coag-Neg Staph PNA FISH - Final Blood Blood Culture - Preliminary Gram Pos Cocci In Clusters Gram Stain - Final Lab Studies 11/06/18 11/06/18 11/06/18 Range/Units 05:37 05:35 05:15 WBC 10.9 H (4.8-10.8) K/uL RBC 3.83 L (4.40-5.90) Mil/uL Hgb 9.9 L (12.0-18.0) g/dL Hct 30.9 L (35.0-51.0) % MCV 80.6 (80.0-94.0) fL MCH 25.8 L (27.0-31.0) pg MCHC 32.0 L (33.0-37.0) g/dL RDW 19.7 H (11.5-14.5) % Plt Count 219 (130-400) K/uL MPV 9.8 (7.2-11.7) fL Neut % (Auto) 78.1 H (50.0-75.0) % Lymph % (Auto) 18.5 L (20.0-40.0) % Tripp % (Auto) 2.6 (0.0-10.0) % Eos % (Auto) 0.5 (0.0-4.0) % Baso % (Auto) 0.3 (0.0-2.0) % Neut # (Auto) 8.5 H (1.8-7.0) K/uL Lymph # (Auto) 2.0 (1.0-4.3) K/uL Tripp # (Auto) 0.3 (0.0-0.8) K/uL Eos # (Auto) 0.1 (0.0-0.7) K/uL Baso # (Auto) 0.0 (0.0-0.2) K/uL Puncture Site Rr pCO2 36 (35-45) mm/Hg pO2 101 H (80-100) mm/Hg HCO3 27.6 (21-28) mmol/L ABG pH 7.48 H (7.35-7.45) ABG Total CO2 27.9 (22-28) mmol/L ABG O2 Saturation 99.2 H (95-98) % ABG Base Excess 3.4 H (-2.0-3.0) mmol/L Ruiz Test Pos ABG Potassium 3.9 (3.6-5.2) mmol/L A-a O2 Difference 282.0 mm/Hg Respiratory Index 2.8 Sodium 144 147.0 (132-148) mmol/l Chloride 111 H 118.0 H (98-107) mmol/L Glucose 224 H (75-110) mg/dl Lactate 1.7 (0.7-2.1) mmol/L Vent Mode Prvc Mechanical Rate 20 FiO2 60.0 % Tidal Volume 500 PEEP 5 Potassium 4.0 (3.6-5.2) mmol/L Carbon Dioxide 30 (22-30) mmol/L Anion Gap 7 L (10-20) BUN 34 H (9-20) mg/dL Creatinine 1.2 (0.8-1.5) mg/dL Est GFR ( Amer) > 60 Est GFR (Non-Af Amer) > 60 POC Glucose (mg/dL) (65-110) mg/dL Random Glucose 206 H (75-110) mg/dL Calcium 7.8 L (8.6-10.4) mg/dl Phosphorus 2.9 (2.5-4.5) mg/dL Magnesium 2.0 (1.6-2.3) mg/dL Total Bilirubin < 0.1 L (0.2-1.3) mg/dL AST 25 (17-59) U/L ALT 19 L (21-72) U/L Alkaline Phosphatase 169 H D (38-126) U/L Total Protein 5.7 L (6.3-8.3) g/dL Albumin 2.1 L (3.5-5.0) g/dL Globulin 3.7 (2.2-3.9) gm/dL Albumin/Globulin Ratio 0.6 L (1.0-2.1) Arterial Blood Potassium 3.9 (3.6-5.2) mmol/L 11/05/18 11/05/18 11/05/18 Range/Units 23:34 17:39 11:23 WBC (4.8-10.8) K/uL RBC (4.40-5.90) Mil/uL Hgb (12.0-18.0) g/dL Hct (35.0-51.0) % MCV (80.0-94.0) fL MCH (27.0-31.0) pg MCHC (33.0-37.0) g/dL RDW (11.5-14.5) % Plt Count (130-400) K/uL MPV (7.2-11.7) fL Neut % (Auto) (50.0-75.0) % Lymph % (Auto) (20.0-40.0) % Tripp % (Auto) (0.0-10.0) % Eos % (Auto) (0.0-4.0) % Baso % (Auto) (0.0-2.0) % Neut # (Auto) (1.8-7.0) K/uL Lymph # (Auto) (1.0-4.3) K/uL Tripp # (Auto) (0.0-0.8) K/uL Eos # (Auto) (0.0-0.7) K/uL Baso # (Auto) (0.0-0.2) K/uL Puncture Site pCO2 (35-45) mm/Hg pO2 (80-100) mm/Hg HCO3 (21-28) mmol/L ABG pH (7.35-7.45) ABG Total CO2 (22-28) mmol/L ABG O2 Saturation (95-98) % ABG Base Excess (-2.0-3.0) mmol/L Ruiz Test ABG Potassium (3.6-5.2) mmol/L A-a O2 Difference mm/Hg Respiratory Index Sodium (132-148) mmol/l Chloride (98-107) mmol/L Glucose (75-110) mg/dl Lactate (0.7-2.1) mmol/L Vent Mode Mechanical Rate FiO2 % Tidal Volume PEEP Potassium (3.6-5.2) mmol/L Carbon Dioxide (22-30) mmol/L Anion Gap (10-20) BUN (9-20) mg/dL Creatinine (0.8-1.5) mg/dL Est GFR ( Amer) Est GFR (Non-Af Amer) POC Glucose (mg/dL) 282 H 184 H 166 H (65-110) mg/dL Random Glucose (75-110) mg/dL Calcium (8.6-10.4) mg/dl Phosphorus (2.5-4.5) mg/dL Magnesium (1.6-2.3) mg/dL Total Bilirubin (0.2-1.3) mg/dL AST (17-59) U/L ALT (21-72) U/L Alkaline Phosphatase (38-126) U/L Total Protein (6.3-8.3) g/dL Albumin (3.5-5.0) g/dL Globulin (2.2-3.9) gm/dL Albumin/Globulin Ratio (1.0-2.1) Arterial Blood Potassium (3.6-5.2) mmol/L Laboratory Results - last 24 hr 11/05/18 11/05/18 11/05/18 11:23 17:39 23:34 WBC RBC Hgb Hct MCV MCH MCHC RDW Plt Count MPV Neut % (Auto) Lymph % (Auto) Tripp % (Auto) Eos % (Auto) Baso % (Auto) Neut # (Auto) Lymph # (Auto) Tripp # (Auto) Eos # (Auto) Baso # (Auto) Puncture Site pCO2 pO2 HCO3 ABG pH ABG Total CO2 ABG O2 Saturation ABG Base Excess Ruiz Test ABG Potassium A-a O2 Difference Respiratory Index Sodium Chloride Glucose Lactate Vent Mode Mechanical Rate FiO2 Tidal Volume PEEP Potassium Carbon Dioxide Anion Gap BUN Creatinine Est GFR ( Amer) Est GFR (Non-Af Amer) POC Glucose (mg/dL) 166 H 184 H 282 H Random Glucose Calcium Phosphorus Magnesium Total Bilirubin AST ALT Alkaline Phosphatase Total Protein Albumin Globulin Albumin/Globulin Ratio Arterial Blood Potassium 11/06/18 11/06/18 11/06/18 05:15 05:35 05:37 WBC 10.9 H RBC 3.83 L Hgb 9.9 L Hct 30.9 L MCV 80.6 MCH 25.8 L MCHC 32.0 L RDW 19.7 H Plt Count 219 MPV 9.8 Neut % (Auto) 78.1 H Lymph % (Auto) 18.5 L Tripp % (Auto) 2.6 Eos % (Auto) 0.5 Baso % (Auto) 0.3 Neut # (Auto) 8.5 H Lymph # (Auto) 2.0 Tripp # (Auto) 0.3 Eos # (Auto) 0.1 Baso # (Auto) 0.0 Puncture Site Rr pCO2 36 pO2 101 H HCO3 27.6 ABG pH 7.48 H ABG Total CO2 27.9 ABG O2 Saturation 99.2 H ABG Base Excess 3.4 H Ruiz Test Pos ABG Potassium 3.9 A-a O2 Difference 282.0 Respiratory Index 2.8 Sodium 147.0 144 Chloride 118.0 H 111 H Glucose 224 H Lactate 1.7 Vent Mode Prvc Mechanical Rate 20 FiO2 60.0 Tidal Volume 500 PEEP 5 Potassium 4.0 Carbon Dioxide 30 Anion Gap 7 L BUN 34 H Creatinine 1.2 Est GFR ( Amer) > 60 Est GFR (Non-Af Amer) > 60 POC Glucose (mg/dL) Random Glucose 206 H Calcium 7.8 L Phosphorus 2.9 Magnesium 2.0 Total Bilirubin < 0.1 L AST 25 ALT 19 L Alkaline Phosphatase 169 H D Total Protein 5.7 L Albumin 2.1 L Globulin 3.7 Albumin/Globulin Ratio 0.6 L Arterial Blood Potassium 3.9 Radiology Impressions: Radiology Impressions Chest X-Ray 11/05/18 04:00 IMPRESSION: Similar bilateral coalescent interstitial and airspace opacities as detailed above. No interval pathology noted. Chest X-Ray 11/05/18 13:15 IMPRESSION: Interval insertion right internal jugular vein central catheter tip superior vena cava. No pneumothorax appreciated. Extensive bilateral interstitial and airspace pathologies as detailed above. Endotracheal tube and NG tube in satisfactory position. Fingerstick Blood Sugar Results: 224 Assessment/Plan - Assessment and Plan (Free Text) Assessment: 63 y/o male with multiple medical problems including PMHx of seizures, DM, CVA, and dementia with respiratory failure. Neuro -seizures: continue with keppra and valproate (check medication levels) -history of CVA, paraplegia, and dementia CV -no active issues -ECHO completed 11/05. Pending official read. Pulm -admitted with hypercapnic respiratory failure -daily CXR and ABG -on ventilator, wean as tolerated, PRVA 500/50/20/5 by RT -did not tolerate CPAP trial last night. Will resume trial. GI -no active issues Renal -renal insufficiency -IVF - LR at 100 mL/hr ID -CXR: bilateral pulmonary infiltrates -f/u PNA work up - sputum culture, change abx if needed when speciation results return -monitor VS and mental status - patient hemodynamically stable currently -IVF - LR at 100 mL/hr -zosyn started 11/04 -vanc started 10am on 11/05 -vanc trough ordered for 11/08 at 9:30am (30 min before 4th dose) -voriconazole given due to past cx positive for asperigillosis -new results 11/05: final blood culture - s. aureus and coagulase negative staph -remove right TLC and right peripheral line on the arm today and plan to insert central line. Patient's daughter consented after hearing risks and benefits via telephone. Form completed and in patient chart. -ID, Dr. Fine, following. Appreciate recs. 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 Michelet Stanton PGY1 <Jose Ramon Tafoya S - Last Filed: 11/06/18 17:56> CCU Subjective - Physician Review Critical Care Time Spent (in minutes): 45 CCU Objective - Vital Signs / Intake & Output Vital Signs (Last 4 hours): Vital Signs Temp Pulse Resp BP Pulse Ox 11/06/18 16:00 99.1 F 54 L 33 H 117/64 96 11/06/18 15:00 49 L 30 H 135/70 97 11/06/18 14:00 48 L 31 H 137/71 99 Intake and Output (Last 8hrs): Intake & Output 11/06/18 11/06/18 11/06/18 06:59 14:59 22:59 Intake Total 1354.42 1295.2 460.0 Output Total 485 560 175 Balance 869.42 735.2 285.0 Weight 119 lb 12.8 oz Intake: IV 10.22 52 31 Intake, IV Amount 984.2 923.2 309.0 Right Medial Port 84.2 23.2 9.0 Internal Jugular Right Proximal Port 900 900 300 Internal Jugular Tube Feeding 360 320 120 Output: Urine 485 560 175 Urethral (Nelson) 485 560 175 Other: # Bowel Movements 0 - Medications Active Medications: Active Medications Generic Name Dose Route Start Last Admin Trade Name Freq PRN Reason Stop Dose Admin Enoxaparin Sodium 40 mg 11/04/18 10:00 11/06/18 09:23 Lovenox SC 40 mg DAILY HUMBERTO Administration Famotidine 20 mg 11/03/18 22:00 11/06/18 09:23 Pepcid IVP 20 mg Q12 HUMBERTO Administration Lactated Ringer's 1,000 mls @ 100 mls/hr 11/03/18 17:45 11/06/18 15:21 Lactated Ringer's IV 100 mls/hr .Q10H HUMBERTO Administration Piperacillin Sod/Tazobactam Sod 3.375 gm in 50 mls @ 100 mls/hr 11/04/18 01:30 11/06/18 17:01 Zosyn 3.375 Gm Iv Premix IVPB 100 mls/hr Q8H HUMBERTO Administration Protocol Dexmedetomidine HCl 200 mcg/ 50 mls @ 2.56 mls/hr 11/04/18 11:00 11/06/18 16:59 Sodium Chloride IV 0.3 mcg/kg/hr TITR PRN 3.83 mls/hr Agitation Titration Protocol 0.2 MCG/KG/HR Vancomycin HCl 1 gm/ Sodium 250 mls @ 166.7 mls/hr 11/05/18 10:00 11/06/18 09:23 Chloride IVPB 166.7 mls/hr Q24H HUMBERTO Administration Protocol Voriconazole 100 mg/ Sodium 100 mls @ 100 mls/hr 11/06/18 14:00 11/06/18 14:02 Chloride IVPB 100 mls/hr Q12H HUMBERTO Administration Insulin Human Regular 0 unit 11/04/18 00:00 11/06/18 11:28 Novolin R SC Not Given Q6H HUMBERTO Protocol Levetiracetam 500 mg 11/03/18 21:00 11/06/18 17:01 Keppra PO 500 mg BID HUMBERTO Administration Valproate Sodium 250 mg 11/03/18 21:00 11/06/18 17:01 Depakene Oral Soln PO 250 mg BID HUMBERTO Administration - Patient Studies Lab Studies: Microbiology Studies 11/03/18 16:55 Blood Culture - Preliminary Blood NO GROWTH AFTER 3 DAYS 11/05/18 16:03 Blood Culture - Preliminary Blood-Thru Central Line NO GROWTH AFTER 24 HOURS 11/05/18 16:03 Blood Culture - Preliminary Blood-Thru Central Line NO GROWTH AFTER 24 HOURS 11/03/18 17:05 S.aureus & Coag-Neg Staph PNA FISH - Final Blood Blood Culture - Final Coagulase Neg Staphylococcus Gram Stain - Final 11/04/18 07:59 Gram Stain - Final Trachasp Sputum Culture - Preliminary Gram Positive Cocci Lab Studies 11/06/18 11/06/18 11/06/18 Range/Units 17:32 11:22 05:46 WBC (4.8-10.8) K/uL RBC (4.40-5.90) Mil/uL Hgb (12.0-18.0) g/dL Hct (35.0-51.0) % MCV (80.0-94.0) fL MCH (27.0-31.0) pg MCHC (33.0-37.0) g/dL RDW (11.5-14.5) % Plt Count (130-400) K/uL MPV (7.2-11.7) fL Neut % (Auto) (50.0-75.0) % Lymph % (Auto) (20.0-40.0) % Tripp % (Auto) (0.0-10.0) % Eos % (Auto) (0.0-4.0) % Baso % (Auto) (0.0-2.0) % Neut # (Auto) (1.8-7.0) K/uL Lymph # (Auto) (1.0-4.3) K/uL Tripp # (Auto) (0.0-0.8) K/uL Eos # (Auto) (0.0-0.7) K/uL Baso # (Auto) (0.0-0.2) K/uL Puncture Site pCO2 (35-45) mm/Hg pO2 (80-100) mm/Hg HCO3 (21-28) mmol/L ABG pH (7.35-7.45) ABG Total CO2 (22-28) mmol/L ABG O2 Saturation (95-98) % ABG Base Excess (-2.0-3.0) mmol/L Ruiz Test ABG Potassium (3.6-5.2) mmol/L A-a O2 Difference mm/Hg Respiratory Index Sodium (132-148) mmol/l Chloride (98-107) mmol/L Glucose (75-110) mg/dl Lactate (0.7-2.1) mmol/L Vent Mode Mechanical Rate FiO2 % Tidal Volume PEEP Potassium (3.6-5.2) mmol/L Carbon Dioxide (22-30) mmol/L Anion Gap (10-20) BUN (9-20) mg/dL Creatinine (0.8-1.5) mg/dL Est GFR ( Amer) Est GFR (Non-Af Amer) POC Glucose (mg/dL) 224 H 178 H 224 H (65-110) mg/dL Random Glucose (75-110) mg/dL Calcium (8.6-10.4) mg/dl Phosphorus (2.5-4.5) mg/dL Magnesium (1.6-2.3) mg/dL Total Bilirubin (0.2-1.3) mg/dL AST (17-59) U/L ALT (21-72) U/L Alkaline Phosphatase (38-126) U/L Total Protein (6.3-8.3) g/dL Albumin (3.5-5.0) g/dL Globulin (2.2-3.9) gm/dL Albumin/Globulin Ratio (1.0-2.1) Arterial Blood Potassium (3.6-5.2) mmol/L 11/06/18 11/06/18 11/06/18 Range/Units 05:37 05:35 05:15 WBC 10.9 H (4.8-10.8) K/uL RBC 3.83 L (4.40-5.90) Mil/uL Hgb 9.9 L (12.0-18.0) g/dL Hct 30.9 L (35.0-51.0) % MCV 80.6 (80.0-94.0) fL MCH 25.8 L (27.0-31.0) pg MCHC 32.0 L (33.0-37.0) g/dL RDW 19.7 H (11.5-14.5) % Plt Count 219 (130-400) K/uL MPV 9.8 (7.2-11.7) fL Neut % (Auto) 78.1 H (50.0-75.0) % Lymph % (Auto) 18.5 L (20.0-40.0) % Tripp % (Auto) 2.6 (0.0-10.0) % Eos % (Auto) 0.5 (0.0-4.0) % Baso % (Auto) 0.3 (0.0-2.0) % Neut # (Auto) 8.5 H (1.8-7.0) K/uL Lymph # (Auto) 2.0 (1.0-4.3) K/uL Tripp # (Auto) 0.3 (0.0-0.8) K/uL Eos # (Auto) 0.1 (0.0-0.7) K/uL Baso # (Auto) 0.0 (0.0-0.2) K/uL Puncture Site Rr pCO2 36 (35-45) mm/Hg pO2 101 H (80-100) mm/Hg HCO3 27.6 (21-28) mmol/L ABG pH 7.48 H (7.35-7.45) ABG Total CO2 27.9 (22-28) mmol/L ABG O2 Saturation 99.2 H (95-98) % ABG Base Excess 3.4 H (-2.0-3.0) mmol/L Ruiz Test Pos ABG Potassium 3.9 (3.6-5.2) mmol/L A-a O2 Difference 282.0 mm/Hg Respiratory Index 2.8 Sodium 144 147.0 (132-148) mmol/l Chloride 111 H 118.0 H (98-107) mmol/L Glucose 224 H (75-110) mg/dl Lactate 1.7 (0.7-2.1) mmol/L Vent Mode Prvc Mechanical Rate 20 FiO2 60.0 % Tidal Volume 500 PEEP 5 Potassium 4.0 (3.6-5.2) mmol/L Carbon Dioxide 30 (22-30) mmol/L Anion Gap 7 L (10-20) BUN 34 H (9-20) mg/dL Creatinine 1.2 (0.8-1.5) mg/dL Est GFR ( Amer) > 60 Est GFR (Non-Af Amer) > 60 POC Glucose (mg/dL) (65-110) mg/dL Random Glucose 206 H (75-110) mg/dL Calcium 7.8 L (8.6-10.4) mg/dl Phosphorus 2.9 (2.5-4.5) mg/dL Magnesium 2.0 (1.6-2.3) mg/dL Total Bilirubin < 0.1 L (0.2-1.3) mg/dL AST 25 (17-59) U/L ALT 19 L (21-72) U/L Alkaline Phosphatase 169 H D (38-126) U/L Total Protein 5.7 L (6.3-8.3) g/dL Albumin 2.1 L (3.5-5.0) g/dL Globulin 3.7 (2.2-3.9) gm/dL Albumin/Globulin Ratio 0.6 L (1.0-2.1) Arterial Blood Potassium 3.9 (3.6-5.2) mmol/L 11/05/18 Range/Units 23:34 WBC (4.8-10.8) K/uL RBC (4.40-5.90) Mil/uL Hgb (12.0-18.0) g/dL Hct (35.0-51.0) % MCV (80.0-94.0) fL MCH (27.0-31.0) pg MCHC (33.0-37.0) g/dL RDW (11.5-14.5) % Plt Count (130-400) K/uL MPV (7.2-11.7) fL Neut % (Auto) (50.0-75.0) % Lymph % (Auto) (20.0-40.0) % Tripp % (Auto) (0.0-10.0) % Eos % (Auto) (0.0-4.0) % Baso % (Auto) (0.0-2.0) % Neut # (Auto) (1.8-7.0) K/uL Lymph # (Auto) (1.0-4.3) K/uL Tripp # (Auto) (0.0-0.8) K/uL Eos # (Auto) (0.0-0.7) K/uL Baso # (Auto) (0.0-0.2) K/uL Puncture Site pCO2 (35-45) mm/Hg pO2 (80-100) mm/Hg HCO3 (21-28) mmol/L ABG pH (7.35-7.45) ABG Total CO2 (22-28) mmol/L ABG O2 Saturation (95-98) % ABG Base Excess (-2.0-3.0) mmol/L Ruiz Test ABG Potassium (3.6-5.2) mmol/L A-a O2 Difference mm/Hg Respiratory Index Sodium (132-148) mmol/l Chloride (98-107) mmol/L Glucose (75-110) mg/dl Lactate (0.7-2.1) mmol/L Vent Mode Mechanical Rate FiO2 % Tidal Volume PEEP Potassium (3.6-5.2) mmol/L Carbon Dioxide (22-30) mmol/L Anion Gap (10-20) BUN (9-20) mg/dL Creatinine (0.8-1.5) mg/dL Est GFR ( Amer) Est GFR (Non-Af Amer) POC Glucose (mg/dL) 282 H (65-110) mg/dL Random Glucose (75-110) mg/dL Calcium (8.6-10.4) mg/dl Phosphorus (2.5-4.5) mg/dL Magnesium (1.6-2.3) mg/dL Total Bilirubin (0.2-1.3) mg/dL AST (17-59) U/L ALT (21-72) U/L Alkaline Phosphatase (38-126) U/L Total Protein (6.3-8.3) g/dL Albumin (3.5-5.0) g/dL Globulin (2.2-3.9) gm/dL Albumin/Globulin Ratio (1.0-2.1) Arterial Blood Potassium (3.6-5.2) mmol/L Laboratory Results - last 24 hr 11/05/18 11/06/18 11/06/18 23:34 05:15 05:35 WBC RBC Hgb Hct MCV MCH MCHC RDW Plt Count MPV Neut % (Auto) Lymph % (Auto) Tripp % (Auto) Eos % (Auto) Baso % (Auto) Neut # (Auto) Lymph # (Auto) Tripp # (Auto) Eos # (Auto) Baso # (Auto) Puncture Site Rr pCO2 36 pO2 101 H HCO3 27.6 ABG pH 7.48 H ABG Total CO2 27.9 ABG O2 Saturation 99.2 H ABG Base Excess 3.4 H Ruiz Test Pos ABG Potassium 3.9 A-a O2 Difference 282.0 Respiratory Index 2.8 Sodium 147.0 144 Chloride 118.0 H 111 H Glucose 224 H Lactate 1.7 Vent Mode Prvc Mechanical Rate 20 FiO2 60.0 Tidal Volume 500 PEEP 5 Potassium 4.0 Carbon Dioxide 30 Anion Gap 7 L BUN 34 H Creatinine 1.2 Est GFR ( Amer) > 60 Est GFR (Non-Af Amer) > 60 POC Glucose (mg/dL) 282 H Random Glucose 206 H Calcium 7.8 L Phosphorus 2.9 Magnesium 2.0 Total Bilirubin < 0.1 L AST 25 ALT 19 L Alkaline Phosphatase 169 H D Total Protein 5.7 L Albumin 2.1 L Globulin 3.7 Albumin/Globulin Ratio 0.6 L Arterial Blood Potassium 3.9 11/06/18 11/06/18 11/06/18 05:37 05:46 11:22 WBC 10.9 H RBC 3.83 L Hgb 9.9 L Hct 30.9 L MCV 80.6 MCH 25.8 L MCHC 32.0 L RDW 19.7 H Plt Count 219 MPV 9.8 Neut % (Auto) 78.1 H Lymph % (Auto) 18.5 L Tripp % (Auto) 2.6 Eos % (Auto) 0.5 Baso % (Auto) 0.3 Neut # (Auto) 8.5 H Lymph # (Auto) 2.0 Tripp # (Auto) 0.3 Eos # (Auto) 0.1 Baso # (Auto) 0.0 Puncture Site pCO2 pO2 HCO3 ABG pH ABG Total CO2 ABG O2 Saturation ABG Base Excess Ruiz Test ABG Potassium A-a O2 Difference Respiratory Index Sodium Chloride Glucose Lactate Vent Mode Mechanical Rate FiO2 Tidal Volume PEEP Potassium Carbon Dioxide Anion Gap BUN Creatinine Est GFR ( Amer) Est GFR (Non-Af Amer) POC Glucose (mg/dL) 224 H 178 H Random Glucose Calcium Phosphorus Magnesium Total Bilirubin AST ALT Alkaline Phosphatase Total Protein Albumin Globulin Albumin/Globulin Ratio Arterial Blood Potassium 11/06/18 17:32 WBC RBC Hgb Hct MCV MCH MCHC RDW Plt Count MPV Neut % (Auto) Lymph % (Auto) Tripp % (Auto) Eos % (Auto) Baso % (Auto) Neut # (Auto) Lymph # (Auto) Tripp # (Auto) Eos # (Auto) Baso # (Auto) Puncture Site pCO2 pO2 HCO3 ABG pH ABG Total CO2 ABG O2 Saturation ABG Base Excess Ruiz Test ABG Potassium A-a O2 Difference Respiratory Index Sodium Chloride Glucose Lactate Vent Mode Mechanical Rate FiO2 Tidal Volume PEEP Potassium Carbon Dioxide Anion Gap BUN Creatinine Est GFR ( Amer) Est GFR (Non-Af Amer) POC Glucose (mg/dL) 224 H Random Glucose Calcium Phosphorus Magnesium Total Bilirubin AST ALT Alkaline Phosphatase Total Protein Albumin Globulin Albumin/Globulin Ratio Arterial Blood Potassium Radiology Impressions: Radiology Impressions Chest X-Ray 11/06/18 04:00 IMPRESSION: Stable position of support line and tubes. Interval improved aeration in the lungs with persistent moderate pulmonary venous congestion. Attending/Attestation - Attestation I have personally seen and examined this patient.: Yes I have fully participated in the care of the patient.: Yes I have reviewed all pertinent clinical information: Yes Notes (Text): 11/06/18 17:55 patient seen and examined in the intensive care unit. Tolerating CPAP with high pressure support Patient is awake No further seizure activity Continue IV antibiotics Follow-up chest x-ray Continue present treatment for now
[2018-11-06] MEDS: Enoxaparin 40 mg Syringe SC SCH (09:23)
[2018-11-06] MEDS: Valproic Acid 250 mg/5 ml UD Cup PO SCH ×2 (09:23→17:01)
[2018-11-06] MEDS: levETIRAcetam 100 mg/ml (5ml) Oral Syringe PO SCH ×2 (09:23→17:01)
[2018-11-06] MEDS: Dexmedetomidine Hydrochloride 200 MCG in Sodium Chloride 0.9% 48 ML IV PRN ×3 (09:26→21:29)
--- NOTE | 2018-11-06 10:06 | RAD ---
Date of service: 11/06/2018 HISTORY: intubated COMPARISON: 11/05/2018 FINDINGS: The endotracheal tube terminates 4.1 cm proximal to the pito. The nasogastric tube terminates in the stomach. The right IJV line terminates in the SVC. LUNGS: The lungs are well inflated. There is interval improved aeration in the lungs with persistent moderate pulmonary venous congestion. No focal consolidation PLEURA: No pleural effusions or pneumothorax. CARDIOVASCULAR: The heart is normal in size. No aortic atherosclerotic calcification present. OSSEOUS STRUCTURES: Within normal limits for the patient's age. VISUALIZED UPPER ABDOMEN: Normal. OTHER FINDINGS: None. IMPRESSION: Stable position of support line and tubes. Interval improved aeration in the lungs with persistent moderate pulmonary venous congestion.
--- NOTE | 2018-11-06 13:27 | CP.PCM.PN ---
Subjective - Date & Time of Evaluation Date of Evaluation: 11/06/18 Time of Evaluation: 13:00 - Subjective Subjective: dictated Objective - Vital Signs/Intake and Output Vital Signs (last 24 hours): Temp Pulse Resp BP Pulse Ox 97.9 F 50 L 31 H 132/65 100 11/06/18 12:00 11/06/18 12:00 11/06/18 12:00 11/06/18 12:00 11/06/18 12:00 Intake and Output: 11/06/18 11/06/18 06:59 18:59 Intake Total 2128.29 1150.6 Output Total 885 535 Balance 1243.29 615.6 - Medications Medications: Current Medications Enoxaparin Sodium (Lovenox) 40 mg SC DAILY [facility] Last Admin: 11/06/18 09:23 Dose: 40 mg Famotidine (Pepcid) 20 mg IVP Q12 [facility] Last Admin: 11/06/18 09:23 Dose: 20 mg Lactated Ringer's (Lactated Ringer's) 1,000 mls @ 100 mls/hr IV .Q10H [facility] Last Admin: 11/06/18 05:48 Dose: Not Given Piperacillin Sod/Tazobactam Sod (Zosyn 3.375 Gm Iv Premix) 3.375 gm in 50 mls @ 100 mls/hr IVPB Q8H [facility]; Protocol Last Admin: 11/06/18 09:24 Dose: 100 mls/hr Dexmedetomidine HCl 200 mcg/ (Sodium Chloride) 50 mls @ 2.56 mls/hr IV TITR PRN; Protocol PRN Reason: Agitation Last Admin: 11/06/18 09:26 Dose: 0.3 mcg/kg/hr, 3.83 mls/hr Vancomycin HCl 1 gm/ Sodium (Chloride) 250 mls @ 166.7 mls/hr IVPB Q24H [facility]; Protocol Last Admin: 11/06/18 09:23 Dose: 166.7 mls/hr Voriconazole 100 mg/ Sodium (Chloride) 100 mls @ 100 mls/hr IVPB Q12H [facility] Insulin Human Regular (Novolin R) 0 unit SC Q6H [facility]; Protocol Last Admin: 11/06/18 11:28 Dose: Not Given Levetiracetam (Keppra) 500 mg PO BID [facility] Last Admin: 11/06/18 09:23 Dose: 500 mg Valproate Sodium (Depakene Oral Soln) 250 mg PO BID [facility] Last Admin: 11/06/18 09:23 Dose: 250 mg - Labs Labs: 11/06/18 05:37 11/06/18 05:35 PT 18.1 SECONDS (9.7-12.2) H 11/03/18 16:59 INR 1.7 11/03/18 16:59 APTT 46 SECONDS (21-34) H 11/03/18 16:59
--- NOTE | 2018-11-06 21:05 | CP.PCM.PN ---
Subjective - Date & Time of Evaluation Date of Evaluation: 11/06/18 Time of Evaluation: 10:30 - Subjective Subjective: clinically same Objective - Vital Signs/Intake and Output Vital Signs (last 24 hours): Temp Pulse Resp BP Pulse Ox 99 F 61 22 117/72 98 11/06/18 20:00 11/06/18 20:00 11/06/18 20:00 11/06/18 20:00 11/06/18 20:00 Intake and Output: 11/06/18 11/07/18 18:59 06:59 Intake Total 1899.0 296.6 Output Total 935 90 Balance 964.0 206.6 - Medications Medications: Current Medications Enoxaparin Sodium (Lovenox) 40 mg SC DAILY [facility] Last Admin: 11/06/18 09:23 Dose: 40 mg Famotidine (Pepcid) 20 mg IVP Q12 [facility] Last Admin: 11/06/18 09:23 Dose: 20 mg Lactated Ringer's (Lactated Ringer's) 1,000 mls @ 100 mls/hr IV .Q10H [facility] Last Admin: 11/06/18 15:21 Dose: 100 mls/hr Piperacillin Sod/Tazobactam Sod (Zosyn 3.375 Gm Iv Premix) 3.375 gm in 50 mls @ 100 mls/hr IVPB Q8H [facility]; Protocol Last Admin: 11/06/18 17:01 Dose: 100 mls/hr Dexmedetomidine HCl 200 mcg/ (Sodium Chloride) 50 mls @ 2.56 mls/hr IV TITR PRN; Protocol PRN Reason: Agitation Last Titration: 11/06/18 20:47 Dose: 0.39 mcg/kg/hr, 5.1 mls/hr Vancomycin HCl 1 gm/ Sodium (Chloride) 250 mls @ 166.7 mls/hr IVPB Q24H [facility]; Protocol Last Admin: 11/06/18 09:23 Dose: 166.7 mls/hr Voriconazole 100 mg/ Sodium (Chloride) 100 mls @ 100 mls/hr IVPB Q12H [facility] Last Admin: 11/06/18 14:02 Dose: 100 mls/hr Insulin Human Regular (Novolin R) 0 unit SC Q6H [facility]; Protocol Last Admin: 11/06/18 18:34 Dose: 2 units Levetiracetam (Keppra) 500 mg PO BID [facility] Last Admin: 11/06/18 17:01 Dose: 500 mg Valproate Sodium (Depakene Oral Soln) 250 mg PO BID [facility] Last Admin: 11/06/18 17:01 Dose: 250 mg - Labs Labs: 11/06/18 05:37 11/06/18 05:35 PT 18.1 SECONDS (9.7-12.2) H 11/03/18 16:59 INR 1.7 11/03/18 16:59 APTT 46 SECONDS (21-34) H 11/03/18 16:59 - Constitutional Appears: Well - Head Exam Head Exam: ATRAUMATIC, NORMAL INSPECTION, NORMOCEPHALIC - Eye Exam Eye Exam: EOMI, Normal appearance, PERRL Pupil Exam: NORMAL ACCOMODATION, PERRL - ENT Exam ENT Exam: Mucous Membranes Moist, Normal Exam - Neck Exam Neck Exam: Full ROM, Normal Inspection. absent: Lymphadenopathy - Respiratory Exam Respiratory Exam: Decreased Breath Sounds - Cardiovascular Exam Cardiovascular Exam: REGULAR RHYTHM, +S1, +S2 - GI/Abdominal Exam GI & Abdominal Exam: Soft, Diminished Bowel Sounds - Rectal Exam Rectal Exam: Deferred
[2018-11-07] MEDS: (Novolin R) Insulin Human Regular 100 units/ml vial SC SCH ×4 (00:29→17:46)
--- NOTE | 2018-11-07 01:08 | PN ---
DATE: 11/06/2018 SUBJECTIVE: The patient is afebrile. He still remains on the ventilator, open his eyes, unable to answer questions as he is intubated. Also, he has a history of dementia. He is a paraplegic. He is off Levophed. PHYSICAL EXAMINATION VITAL SIGNS: Pulse is 61, blood pressure 117/72, respirations 22. HEENT: Head is atraumatic; however, he is intubated. NECK: Supple. LUNGS: Coarse breath sounds. HEART: S1 and S2 regular. ABDOMEN: Soft, nontender. EXTREMITIES: No edema. He does have foot protectors now. LABORATORY DATA: White count today is 10.9, hemoglobin 9.9, hematocrit 30.9, platelet count is 219. They did an ABG today, which showed pH of 7.48, pCO2 of 27.6, pO2 of 101, CO2 of 36. The patient's BUN is 34 and creatinine 1.2. His blood cultures have been negative for 24 hours. Sputum comes out gram-positive cocci; ID and sensitivity is pending. One blood culture initially on 11/03/2018, one was positive for coagulase-negative Staph, the other set was negative. He did have a PICC line or a midline, which he came with from the retirement, so cannot rule out line infection. At this time, sputum is also going GPCs, so we will continue vancomycin and Zosyn and antifungal treatment, and we will follow. Echo is also pending. Echo was done on 11/05/2018 and echo shows the left ventricular systolic function normal. There is [id number] pulmonary hypertension. The aortic valve is moderately thicker than 05/2018 for further evaluation of endocarditis. So we will need to screen him for endocarditis as he has thickened aortic valve, moderately thicker than 05/2018. We will discuss this with attending tomorrow, and he will need a arson investigator to evaluate. 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 We will follow. Jenna Fine MD [facility] # [id number]
[2018-11-07] MEDS: Piperacill/Tazo 3.375gm in Dex 3.375 GM/50 ML BAG IVPB SCH ×3 (01:34→16:46)
[2018-11-07] MEDS: Lactated Ringer's 1,000 ML IV SCH ×3 (01:34→22:00)
[2018-11-07] MEDS: SODIUM CHLORIDE 0.9% IVPB SCH ×2 (01:43→13:14)
[2018-11-07] MEDS: VORICONAZOLE IVPB SCH ×2 (01:43→13:14)
[2018-11-07] MEDS: Dexmedetomidine Hydrochloride 200 MCG in Sodium Chloride 0.9% 48 ML IV PRN ×2 (02:44→10:11)
[2018-11-07 05:44] LABS: ABG ALLEN TEST POS; ARTERIAL BLOOD GAS HCO3 29.7 mmol/L (21-28); ARTERIAL BLOOD GAS O2 SAT 97.2 % (95-98); ARTERIAL BLOOD GAS PCO2 37 mm/Hg (35-45); ARTERIAL BLOOD GAS PH 7.51 (7.35-7.45); ARTERIAL BLOOD GAS PO2 74 mm/Hg (80-100); ARTERIAL BLOOD GAS TCO2 30.6 mmol/L (22-28)
[2018-11-07 06:21] LABS: BASO % 0.4 % (0.0-2.0); EOS # 0.1 K/uL (0.0-0.7); EOS % 1.4 % (0.0-4.0); HEMOGLOBIN 9.2 g/dL (12.0-18.0); LYMPH # 1.5 K/uL (1.0-4.3); LYMPH % 20.7 % (20.0-40.0); MEAN CELL VOLUME 79.7 fL (80.0-94.0); MEAN CORPUSCULAR HEMOGLOBIN 25.7 pg (27.0-31.0); MEAN CORPUSCULAR HGB CONC 32.2 g/dL (33.0-37.0); MEAN PLATELET VOLUME 9.6 fL (7.2-11.7); MONO # 0.3 K/uL (0.0-0.8); MONO % 3.5 % (0.0-10.0); NEUT # 5.4 K/uL (1.8-7.0); RBC 3.58 Mil/uL (4.40-5.90); WHITE BLOOD COUNT 7.2 K/uL (4.8-10.8)
[2018-11-07 06:32] LABS: ALB/GLOB RATIO 0.5 (1.0-2.1); ALBUMIN 2.1 g/dL (3.5-5.0); ALT/SGPT 24 U/L (21-72); AST/SGOT 22 U/L (17-59); BLOOD UREA NITROGEN 24 mg/dL (9-20); CALCIUM 7.5 mg/dl (8.6-10.4); GFR NON-AFRICAN AMERICAN > 60
[2018-11-07] MEDS: Valproic Acid 250 mg/5 ml UD Cup PO SCH ×2 (09:12→17:04)
[2018-11-07] MEDS: levETIRAcetam 100 mg/ml (5ml) Oral Syringe PO SCH ×2 (09:12→17:04)
[2018-11-07] MEDS: Enoxaparin 40 mg Syringe SC SCH (09:13)
[2018-11-07] MEDS ORDERED: Potassium & Sodium Phosphate PO ONE (09:30)
--- NOTE | 2018-11-07 12:51 | RAD ---
HISTORY: intubated COMPARISON: Chest x-ray performed 11/06/18 TECHNIQUE: Chest, one view. FINDINGS: Endotracheal tube is not well visualized obscured by overlying nasogastric tube. Nasogastric tube and IJ approach central venous catheter appear in satisfactory position. LUNGS: Moderate interstitial edema or infection. PLEURA: No significant pleural effusion identified. No definite pneumothorax . CARDIOVASCULAR: Heart size appears top normal. Atherosclerotic calcification present. OSSEOUS STRUCTURES: Degenerative changes. VISUALIZED UPPER ABDOMEN: Unremarkable. OTHER FINDINGS: None. IMPRESSION: Endotracheal tube is not well visualized obscured by overlying nasogastric tube. Nasogastric tube and IJ approach central venous catheter appear in satisfactory position. Moderate interstitial edema or infection.
--- NOTE | 2018-11-07 13:28 | CP.CCUPN ---
<Francisca Stanton - Last Filed: 11/07/18 13:47> CCU Subjective - Physician Review Subjective (Free Text): ICU Progress Note for Dr. Whiting Patient seen and examined at bedside this morning. Patient resting comfortably in bed, easily arousable. Due to patient condition, ROS unable to be obtained. Per RN no acute overnight events. Patient's daughter, Rajan, came before rounds and wanted to speak to physician before she leaves the country until after the new year. She said that during her leave, her aunt (patient's sister) will come routinely to visit patient. CCU Objective - Vital Signs / Intake & Output Vital Signs (Last 4 hours): Vital Signs Temp Pulse Resp BP Pulse Ox 11/07/18 13:00 52 L 21 131/58 L 11/07/18 12:01 59 L 25 H 142/46 L 95 11/07/18 12:00 100.2 F H 61 22 11/07/18 11:02 47 L 20 145/54 L 97 11/07/18 11:00 47 L 20 97 11/07/18 10:01 50 L 20 129/54 L 97 11/07/18 10:00 49 L 20 96 Intake and Output (Last 8hrs): Intake & Output 11/06/18 11/07/18 11/07/18 22:59 06:59 14:59 Intake Total 1218.3 1166.7 1865.1 Output Total 535 585 475 Balance 683.3 581.7 1390.1 Weight 126 lb 12.8 oz Intake: IV 60.0 45.2 96.8 Intake, IV Amount 838.3 801.5 1388.3 Right Distal Port Femoral 10.8 34.5 Right Medial Port 38.3 90.7 53.8 Internal Jugular Right Proximal Port [phone] Internal Jugular Tube Feeding 320 320 280 Other 100 Output: Urine 535 585 475 Urethral (Nelson) 535 585 475 Other: # Bowel Movements 1 0 0 - Physical Exam Head: Positive for: Atraumatic, Normocephalic Extroacular Muscles: Positive for: EOMI Conjunctiva: Positive for: Normal Respiratory/Chest: Positive for: Wheezes (L>R) Cardiovascular: Positive for: Regular Rate and Rhythm Abdomen: Negative for: Tenderness, Distention, Rebound, Guarding Upper Extremity: Positive for: Normal Inspection Lower Extremity: Positive for: Normal Inspection Neurological: Positive for: Other (left leg with sudden kicks) Skin: Positive for: Warm, Dry, Normal Color Psychiatric: Positive for: Alert - Medications Active Medications: Active Medications Generic Name Dose Route Start Last Admin Trade Name Freq PRN Reason Stop Dose Admin Enoxaparin Sodium 40 mg 11/04/18 10:00 11/07/18 09:13 Lovenox SC 40 mg DAILY HUMBERTO Administration Famotidine 20 mg 11/03/18 22:00 11/07/18 09:12 Pepcid IVP 20 mg Q12 HUMBERTO Administration Lactated Ringer's 1,000 mls @ 100 mls/hr 11/03/18 17:45 11/07/18 12:07 Lactated Ringer's IV Not Given .Q10H HUMBERTO Piperacillin Sod/Tazobactam Sod 3.375 gm in 50 mls @ 100 mls/hr 11/04/18 01:30 11/07/18 08:33 Zosyn 3.375 Gm Iv Premix IVPB 100 mls/hr Q8H HUMBERTO Administration Protocol Dexmedetomidine HCl 200 mcg/ 50 mls @ 2.56 mls/hr 11/04/18 11:00 11/07/18 12:30 Sodium Chloride IV 0.3 mcg/kg/hr TITR PRN 3.83 mls/hr Agitation Titration Protocol 0.2 MCG/KG/HR Vancomycin HCl 1 gm/ Sodium 250 mls @ 166.7 mls/hr 11/05/18 10:00 11/07/18 09:13 Chloride IVPB 166.7 mls/hr Q24H HUMBERTO Administration Protocol Voriconazole 100 mg/ Sodium 100 mls @ 100 mls/hr 11/06/18 14:00 11/07/18 13:14 Chloride IVPB 100 mls/hr Q12H HUMBERTO Administration Fentanyl Citrate 2,500 mcg/ 250 mls @ 10.87 mls/hr 11/06/18 22:30 11/07/18 12:06 Sodium Chloride IV 1 mcg/kg/hr .Q23H HUMBERTO 5.43 mls/hr Titration Protocol 2 MCG/KG/HR Insulin Human Regular 0 unit 11/04/18 00:00 11/07/18 11:23 Novolin R SC Not Given Q6H HUMBERTO Protocol Levetiracetam 500 mg 11/03/18 21:00 12/20/18 09:12 Keppra PO 500 mg BID HUMBERTO Administration Valproate Sodium 250 mg 11/03/18 21:00 11/07/18 09:12 Depakene Oral Soln PO 250 mg BID HUMBERTO Administration - Patient Studies Lab Studies: Microbiology Studies 11/04/18 07:59 Gram Stain - Final Trachasp Sputum Culture - Final Staphylococcus Aureus 11/03/18 16:55 Blood Culture - Preliminary Blood NO GROWTH AFTER 3 DAYS 11/05/18 16:03 Blood Culture - Preliminary Blood-Thru Central Line NO GROWTH AFTER 24 HOURS 11/05/18 16:03 Blood Culture - Preliminary Blood-Thru Central Line NO GROWTH AFTER 24 HOURS 11/03/18 17:05 S.aureus & Coag-Neg Staph PNA FISH - Final Blood Blood Culture - Final Coagulase Neg Staphylococcus Gram Stain - Final Lab Studies 11/07/18 11/07/18 11/07/18 Range/Units 11:18 06:09 06:02 WBC (4.8-10.8) K/uL RBC (4.40-5.90) Mil/uL Hgb (12.0-18.0) g/dL Hct (35.0-51.0) % MCV (80.0-94.0) fL MCH (27.0-31.0) pg MCHC (33.0-37.0) g/dL RDW (11.5-14.5) % Plt Count (130-400) K/uL MPV (7.2-11.7) fL Neut % (Auto) (50.0-75.0) % Lymph % (Auto) (20.0-40.0) % Marion % (Auto) (0.0-10.0) % Eos % (Auto) (0.0-4.0) % Baso % (Auto) (0.0-2.0) % Neut # (Auto) (1.8-7.0) K/uL Lymph # (Auto) (1.0-4.3) K/uL Marion # (Auto) (0.0-0.8) K/uL Eos # (Auto) (0.0-0.7) K/uL Baso # (Auto) (0.0-0.2) K/uL Puncture Site pCO2 (35-45) mm/Hg pO2 (80-100) mm/Hg HCO3 (21-28) mmol/L ABG pH (7.35-7.45) ABG Total CO2 (22-28) mmol/L ABG O2 Saturation (95-98) % ABG Base Excess (-2.0-3.0) mmol/L Ruiz Test ABG Potassium (3.6-5.2) mmol/L A-a O2 Difference mm/Hg Respiratory Index Sodium 144 (132-148) mmol/l Chloride 111 H (98-107) mmol/L Glucose (75-110) mg/dl Lactate (0.7-2.1) mmol/L Vent Mode Mechanical Rate FiO2 % Tidal Volume PEEP Potassium 3.8 (3.6-5.2) mmol/L Carbon Dioxide 30 (22-30) mmol/L Anion Gap 8 L (10-20) BUN 24 H (9-20) mg/dL Creatinine 1.0 (0.8-1.5) mg/dL Est GFR ( Amer) > 60 Est GFR (Non-Af Amer) > 60 POC Glucose (mg/dL) 190 H 146 H (65-110) mg/dL Random Glucose 140 H D (75-110) mg/dL Calcium 7.5 L (8.6-10.4) mg/dl Phosphorus 2.2 L (2.5-4.5) mg/dL Magnesium 1.7 (1.6-2.3) mg/dL Total Bilirubin 0.2 (0.2-1.3) mg/dL AST 22 (17-59) U/L ALT 24 (21-72) U/L Alkaline Phosphatase 167 H (38-126) U/L Total Protein 5.8 L (6.3-8.3) g/dL Albumin 2.1 L (3.5-5.0) g/dL Globulin 3.8 (2.2-3.9) gm/dL Albumin/Globulin Ratio 0.5 L (1.0-2.1) Arterial Blood Potassium (3.6-5.2) mmol/L 11/07/18 11/07/18 11/06/18 Range/Units 05:31 04:00 23:28 WBC 7.2 (4.8-10.8) K/uL RBC 3.58 L (4.40-5.90) Mil/uL Hgb 9.2 L (12.0-18.0) g/dL Hct 28.5 L (35.0-51.0) % MCV 79.7 L (80.0-94.0) fL MCH 25.7 L (27.0-31.0) pg MCHC 32.2 L (33.0-37.0) g/dL RDW 20.0 H (11.5-14.5) % Plt Count 165 (130-400) K/uL MPV 9.6 (7.2-11.7) fL Neut % (Auto) 74.0 (50.0-75.0) % Lymph % (Auto) 20.7 (20.0-40.0) % Marion % (Auto) 3.5 (0.0-10.0) % Eos % (Auto) 1.4 (0.0-4.0) % Baso % (Auto) 0.4 (0.0-2.0) % Neut # (Auto) 5.4 (1.8-7.0) K/uL Lymph # (Auto) 1.5 (1.0-4.3) K/uL Marion # (Auto) 0.3 (0.0-0.8) K/uL Eos # (Auto) 0.1 (0.0-0.7) K/uL Baso # (Auto) 0.0 (0.0-0.2) K/uL Puncture Site Rr pCO2 37 (35-45) mm/Hg pO2 74 L (80-100) mm/Hg HCO3 29.7 H (21-28) mmol/L ABG pH 7.51 H (7.35-7.45) ABG Total CO2 30.6 H (22-28) mmol/L ABG O2 Saturation 97.2 (95-98) % ABG Base Excess 6.2 H (-2.0-3.0) mmol/L Ruiz Test Pos ABG Potassium 3.8 (3.6-5.2) mmol/L A-a O2 Difference 201.0 mm/Hg Respiratory Index 2.7 Sodium 147.0 (132-148) mmol/l Chloride 116.0 H (98-107) mmol/L Glucose 150 H (75-110) mg/dl Lactate 1.9 (0.7-2.1) mmol/L Vent Mode Prvc Mechanical Rate 20 FiO2 45.0 % Tidal Volume 500 PEEP 5 Potassium (3.6-5.2) mmol/L Carbon Dioxide (22-30) mmol/L Anion Gap (10-20) BUN (9-20) mg/dL Creatinine (0.8-1.5) mg/dL Est GFR ( Amer) Est GFR (Non-Af Amer) POC Glucose (mg/dL) 212 H (65-110) mg/dL Random Glucose (75-110) mg/dL Calcium (8.6-10.4) mg/dl Phosphorus (2.5-4.5) mg/dL Magnesium (1.6-2.3) mg/dL Total Bilirubin (0.2-1.3) mg/dL AST (17-59) U/L ALT (21-72) U/L Alkaline Phosphatase (38-126) U/L Total Protein (6.3-8.3) g/dL Albumin (3.5-5.0) g/dL Globulin (2.2-3.9) gm/dL Albumin/Globulin Ratio (1.0-2.1) Arterial Blood Potassium 3.8 (3.6-5.2) mmol/L 11/06/18 11/06/18 Range/Units 17:32 11:22 WBC (4.8-10.8) K/uL RBC (4.40-5.90) Mil/uL Hgb (12.0-18.0) g/dL Hct (35.0-51.0) % MCV (80.0-94.0) fL MCH (27.0-31.0) pg MCHC (33.0-37.0) g/dL RDW (11.5-14.5) % Plt Count (130-400) K/uL MPV (7.2-11.7) fL Neut % (Auto) (50.0-75.0) % Lymph % (Auto) (20.0-40.0) % Marion % (Auto) (0.0-10.0) % Eos % (Auto) (0.0-4.0) % Baso % (Auto) (0.0-2.0) % Neut # (Auto) (1.8-7.0) K/uL Lymph # (Auto) (1.0-4.3) K/uL Marion # (Auto) (0.0-0.8) K/uL Eos # (Auto) (0.0-0.7) K/uL Baso # (Auto) (0.0-0.2) K/uL Puncture Site pCO2 (35-45) mm/Hg pO2 (80-100) mm/Hg HCO3 (21-28) mmol/L ABG pH (7.35-7.45) ABG Total CO2 (22-28) mmol/L ABG O2 Saturation (95-98) % ABG Base Excess (-2.0-3.0) mmol/L Ruiz Test ABG Potassium (3.6-5.2) mmol/L A-a O2 Difference mm/Hg Respiratory Index Sodium (132-148) mmol/l Chloride (98-107) mmol/L Glucose (75-110) mg/dl Lactate (0.7-2.1) mmol/L Vent Mode Mechanical Rate FiO2 % Tidal Volume PEEP Potassium (3.6-5.2) mmol/L Carbon Dioxide (22-30) mmol/L Anion Gap (10-20) BUN (9-20) mg/dL Creatinine (0.8-1.5) mg/dL Est GFR ( Amer) Est GFR (Non-Af Amer) POC Glucose (mg/dL) 224 H 178 H (65-110) mg/dL Random Glucose (75-110) mg/dL Calcium (8.6-10.4) mg/dl Phosphorus (2.5-4.5) mg/dL Magnesium (1.6-2.3) mg/dL Total Bilirubin (0.2-1.3) mg/dL AST (17-59) U/L ALT (21-72) U/L Alkaline Phosphatase (38-126) U/L Total Protein (6.3-8.3) g/dL Albumin (3.5-5.0) g/dL Globulin (2.2-3.9) gm/dL Albumin/Globulin Ratio (1.0-2.1) Arterial Blood Potassium (3.6-5.2) mmol/L Laboratory Results - last 24 hr 11/06/18 11/06/18 11/06/18 11:22 17:32 23:28 WBC RBC Hgb Hct MCV MCH MCHC RDW Plt Count MPV Neut % (Auto) Lymph % (Auto) Marion % (Auto) Eos % (Auto) Baso % (Auto) Neut # (Auto) Lymph # (Auto) Marion # (Auto) Eos # (Auto) Baso # (Auto) Puncture Site pCO2 pO2 HCO3 ABG pH ABG Total CO2 ABG O2 Saturation ABG Base Excess Ruiz Test ABG Potassium A-a O2 Difference Respiratory Index Sodium Chloride Glucose Lactate Vent Mode Mechanical Rate FiO2 Tidal Volume PEEP Potassium Carbon Dioxide Anion Gap BUN Creatinine Est GFR ( Amer) Est GFR (Non-Af Amer) POC Glucose (mg/dL) 178 H 224 H 212 H Random Glucose Calcium Phosphorus Magnesium Total Bilirubin AST ALT Alkaline Phosphatase Total Protein Albumin Globulin Albumin/Globulin Ratio Arterial Blood Potassium 11/07/18 11/07/18 11/07/18 04:00 05:31 06:02 WBC 7.2 RBC 3.58 L Hgb 9.2 L Hct 28.5 L MCV 79.7 L MCH 25.7 L MCHC 32.2 L RDW 20.0 H Plt Count 165 MPV 9.6 Neut % (Auto) 74.0 Lymph % (Auto) 20.7 Marion % (Auto) 3.5 Eos % (Auto) 1.4 Baso % (Auto) 0.4 Neut # (Auto) 5.4 Lymph # (Auto) 1.5 Marion # (Auto) 0.3 Eos # (Auto) 0.1 Baso # (Auto) 0.0 Puncture Site Rr pCO2 37 pO2 74 L HCO3 29.7 H ABG pH 7.51 H ABG Total CO2 30.6 H ABG O2 Saturation 97.2 ABG Base Excess 6.2 H Ruiz Test Pos ABG Potassium 3.8 A-a O2 Difference 201.0 Respiratory Index 2.7 Sodium 147.0 Chloride 116.0 H Glucose 150 H Lactate 1.9 Vent Mode Prvc Mechanical Rate 20 FiO2 45.0 Tidal Volume 500 PEEP 5 Potassium Carbon Dioxide Anion Gap BUN Creatinine Est GFR ( Amer) Est GFR (Non-Af Amer) POC Glucose (mg/dL) 146 H Random Glucose Calcium Phosphorus Magnesium Total Bilirubin AST ALT Alkaline Phosphatase Total Protein Albumin Globulin Albumin/Globulin Ratio Arterial Blood Potassium 3.8 11/07/18 11/07/18 06:09 11:18 WBC RBC Hgb Hct MCV MCH MCHC RDW Plt Count MPV Neut % (Auto) Lymph % (Auto) Marion % (Auto) Eos % (Auto) Baso % (Auto) Neut # (Auto) Lymph # (Auto) Marion # (Auto) Eos # (Auto) Baso # (Auto) Puncture Site pCO2 pO2 HCO3 ABG pH ABG Total CO2 ABG O2 Saturation ABG Base Excess Ruiz Test ABG Potassium A-a O2 Difference Respiratory Index Sodium 144 Chloride 111 H Glucose Lactate Vent Mode Mechanical Rate FiO2 Tidal Volume PEEP Potassium 3.8 Carbon Dioxide 30 Anion Gap 8 L BUN 24 H Creatinine 1.0 Est GFR ( Amer) > 60 Est GFR (Non-Af Amer) > 60 POC Glucose (mg/dL) 190 H Random Glucose 140 H D Calcium 7.5 L Phosphorus 2.2 L Magnesium 1.7 Total Bilirubin 0.2 AST 22 ALT 24 Alkaline Phosphatase 167 H Total Protein 5.8 L Albumin 2.1 L Globulin 3.8 Albumin/Globulin Ratio 0.5 L Arterial Blood Potassium Radiology Impressions: Radiology Impressions Chest X-Ray 11/07/18 04:00 IMPRESSION: Endotracheal tube is not well visualized obscured by overlying nasogastric tube. Nasogastric tube and IJ approach central venous catheter appear in satisfactory position. Moderate interstitial edema or infection. Fingerstick Blood Sugar Results: 190 Assessment/Plan - Assessment and Plan (Free Text) Assessment: 63 y/o male with multiple medical problems including PMHx of seizures, DM, CVA, and dementia with respiratory failure. Neuro -seizures: continue with keppra and valproate -history of CVA, paraplegia, and dementia -attempt to wean off precedex. If patient agitation increases, increase fentanyl instead CV -ECHO completed 11/05. Shows thickened aortic valve compared to 12/06. ID, Dr. Fine, recs cardiology consult to r/o endocarditis and OLEG. -cardiology, Dr. Anderson, consult ordered by Dr. Omar Urbina's epic trainer preference -OLEG ordered Pulm -admitted with hypercapnic respiratory failure -daily CXR and ABG -on ventilator, wean as tolerated, PRVC 500/50/20/5 by RT GI -no active issues Renal -renal insufficiency -IVF - LR at 100 mL/hr ID -CXR: bilateral pulmonary infiltrates, hx aspiration PNA -monitor VS and mental status - patient hemodynamically stable currently -IVF - LR at 100 mL/hr -zosyn started 11/04 -vanc started 10am on 11/05 -vanc trough ordered for 11/08 at 9:30am (30 min before 4th dose) -voriconazole given due to past cx positive for asperigillosis -11/05: final blood culture - s. aureus and coagulase negative staph -ID, Dr. Fine, following. Appreciate recs. 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 Johanne Stanton PGY1 <Ronni Whiting - Last Filed: 11/07/18 18:21> CCU Objective - Vital Signs / Intake & Output Vital Signs (Last 4 hours): Vital Signs Temp Pulse Resp BP Pulse Ox 11/07/18 17:01 50 L 20 119/55 L 96 11/07/18 17:00 49 L 20 11/07/18 16:01 52 L 21 101/48 L 94 L 11/07/18 16:00 98.7 F 51 L 22 94 L 11/07/18 15:00 60 23 124/60 94 L Intake and Output (Last 8hrs): Intake & Output 11/07/18 11/07/18 11/07/18 06:59 14:59 22:59 Intake Total 1166.7 1561.7 536.4 Output Total 585 575 250 Balance 581.7 986.7 286.4 Weight 126 lb 12.8 oz Intake: IV 45.2 96.8 14 Intake, IV Amount 801.5 1044.9 322.4 Right Distal Port Femoral 10.8 39.9 16.2 Right Medial Port 90.7 55.0 6.2 Internal Jugular Right Proximal Port 700 950 300 Internal Jugular Tube Feeding 320 320 120 Other 100 80 Output: Urine 585 575 250 Urethral (Nelson) 585 575 250 Other: # Bowel Movements 0 0 - Medications Active Medications: Active Medications Generic Name Dose Route Start Last Admin Trade Name Freq PRN Reason Stop Dose Admin Enoxaparin Sodium 40 mg 11/04/18 10:00 11/07/18 09:13 Lovenox SC 40 mg DAILY HUMBERTO Administration Famotidine 20 mg 11/03/18 22:00 11/07/18 09:12 Pepcid IVP 20 mg Q12 HUMBERTO Administration Lactated Ringer's 1,000 mls @ 100 mls/hr 11/03/18 17:45 11/07/18 12:07 Lactated Ringer's IV Not Given .Q10H HUMBERTO Piperacillin Sod/Tazobactam Sod 3.375 gm in 50 mls @ 100 mls/hr 11/04/18 01:30 11/07/18 16:46 Zosyn 3.375 Gm Iv Premix IVPB 100 mls/hr Q8H HUMBERTO Administration Protocol Dexmedetomidine HCl 200 mcg/ 50 mls @ 2.56 mls/hr 11/04/18 11:00 11/07/18 17:51 Sodium Chloride IV 0.2 mcg/kg/hr TITR PRN 2.56 mls/hr Agitation Titration Protocol 0.2 MCG/KG/HR Vancomycin HCl 1 gm/ Sodium 250 mls @ 166.7 mls/hr 11/05/18 10:00 11/07/18 09:13 Chloride IVPB 166.7 mls/hr Q24H HUMBERTO Administration Protocol Voriconazole 100 mg/ Sodium 100 mls @ 100 mls/hr 11/06/18 14:00 11/07/18 13:14 Chloride IVPB 100 mls/hr Q12H HUMBERTO Administration Fentanyl Citrate 2,500 mcg/ 250 mls @ 10.87 mls/hr 11/06/18 22:30 11/07/18 12:06 Sodium Chloride IV 1 mcg/kg/hr .Q23H HUMBERTO 5.43 mls/hr Titration Protocol 2 MCG/KG/HR Insulin Human Regular 0 unit 11/04/18 00:00 11/07/18 17:46 Novolin R SC 2 units Q6H HUMBERTO Administration Protocol Levetiracetam 500 mg 11/03/18 21:00 11/07/18 17:04 Keppra PO 500 mg BID HUMBERTO Administration Valproate Sodium 250 mg 11/03/18 21:00 11/07/18 17:04 Depakene Oral Soln PO 250 mg BID HUMBERTO Administration - Patient Studies Lab Studies: Microbiology Studies 11/03/18 16:55 Blood Culture - Preliminary Blood NO GROWTH AFTER 4 DAYS 11/05/18 16:03 Blood Culture - Preliminary Blood-Thru Central Line NO GROWTH AFTER 48 HOURS 11/05/18 16:03 Blood Culture - Preliminary Blood-Thru Central Line NO GROWTH AFTER 48 HOURS 11/04/18 07:59 Gram Stain - Final Trachasp Sputum Culture - Final Staphylococcus Aureus Lab Studies 11/07/18 11/07/18 11/07/18 Range/Units 17:40 11:18 06:09 WBC (4.8-10.8) K/uL RBC (4.40-5.90) Mil/uL Hgb (12.0-18.0) g/dL Hct (35.0-51.0) % MCV (80.0-94.0) fL MCH (27.0-31.0) pg MCHC (33.0-37.0) g/dL RDW (11.5-14.5) % Plt Count (130-400) K/uL MPV (7.2-11.7) fL Neut % (Auto) (50.0-75.0) % Lymph % (Auto) (20.0-40.0) % Marion % (Auto) (0.0-10.0) % Eos % (Auto) (0.0-4.0) % Baso % (Auto) (0.0-2.0) % Neut # (Auto) (1.8-7.0) K/uL Lymph # (Auto) (1.0-4.3) K/uL Marion # (Auto) (0.0-0.8) K/uL Eos # (Auto) (0.0-0.7) K/uL Baso # (Auto) (0.0-0.2) K/uL Puncture Site pCO2 (35-45) mm/Hg pO2 (80-100) mm/Hg HCO3 (21-28) mmol/L ABG pH (7.35-7.45) ABG Total CO2 (22-28) mmol/L ABG O2 Saturation (95-98) % ABG Base Excess (-2.0-3.0) mmol/L Ruiz Test ABG Potassium (3.6-5.2) mmol/L A-a O2 Difference mm/Hg Respiratory Index Sodium 144 (132-148) mmol/l Chloride 111 H (98-107) mmol/L Glucose (75-110) mg/dl Lactate (0.7-2.1) mmol/L Vent Mode Mechanical Rate FiO2 % Tidal Volume PEEP Potassium 3.8 (3.6-5.2) mmol/L Carbon Dioxide 30 (22-30) mmol/L Anion Gap 8 L (10-20) BUN 24 H (9-20) mg/dL Creatinine 1.0 (0.8-1.5) mg/dL Est GFR ( Amer) > 60 Est GFR (Non-Af Amer) > 60 POC Glucose (mg/dL) 203 H 190 H (65-110) mg/dL Random Glucose 140 H D (75-110) mg/dL Calcium 7.5 L (8.6-10.4) mg/dl Phosphorus 2.2 L (2.5-4.5) mg/dL Magnesium 1.7 (1.6-2.3) mg/dL Total Bilirubin 0.2 (0.2-1.3) mg/dL AST 22 (17-59) U/L ALT 24 (21-72) U/L Alkaline Phosphatase 167 H (38-126) U/L Total Protein 5.8 L (6.3-8.3) g/dL Albumin 2.1 L (3.5-5.0) g/dL Globulin 3.8 (2.2-3.9) gm/dL Albumin/Globulin Ratio 0.5 L (1.0-2.1) Arterial Blood Potassium (3.6-5.2) mmol/L Levetiracetam mcg/mL 11/07/18 11/07/18 11/07/18 Range/Units 06:02 05:31 04:00 WBC 7.2 (4.8-10.8) K/uL RBC 3.58 L (4.40-5.90) Mil/uL Hgb 9.2 L (12.0-18.0) g/dL Hct 28.5 L (35.0-51.0) % MCV 79.7 L (80.0-94.0) fL MCH 25.7 L (27.0-31.0) pg MCHC 32.2 L (33.0-37.0) g/dL RDW 20.0 H (11.5-14.5) % Plt Count 165 (130-400) K/uL MPV 9.6 (7.2-11.7) fL Neut % (Auto) 74.0 (50.0-75.0) % Lymph % (Auto) 20.7 (20.0-40.0) % Marion % (Auto) 3.5 (0.0-10.0) % Eos % (Auto) 1.4 (0.0-4.0) % Baso % (Auto) 0.4 (0.0-2.0) % Neut # (Auto) 5.4 (1.8-7.0) K/uL Lymph # (Auto) 1.5 (1.0-4.3) K/uL Marion # (Auto) 0.3 (0.0-0.8) K/uL Eos # (Auto) 0.1 (0.0-0.7) K/uL Baso # (Auto) 0.0 (0.0-0.2) K/uL Puncture Site Rr pCO2 37 (35-45) mm/Hg pO2 74 L (80-100) mm/Hg HCO3 29.7 H (21-28) mmol/L ABG pH 7.51 H (7.35-7.45) ABG Total CO2 30.6 H (22-28) mmol/L ABG O2 Saturation 97.2 (95-98) % ABG Base Excess 6.2 H (-2.0-3.0) mmol/L Ruiz Test Pos ABG Potassium 3.8 (3.6-5.2) mmol/L A-a O2 Difference 201.0 mm/Hg Respiratory Index 2.7 Sodium 147.0 (132-148) mmol/l Chloride 116.0 H (98-107) mmol/L Glucose 150 H (75-110) mg/dl Lactate 1.9 (0.7-2.1) mmol/L Vent Mode Prvc Mechanical Rate 20 FiO2 45.0 % Tidal Volume 500 PEEP 5 Potassium (3.6-5.2) mmol/L Carbon Dioxide (22-30) mmol/L Anion Gap (10-20) BUN (9-20) mg/dL Creatinine (0.8-1.5) mg/dL Est GFR ( Amer) Est GFR (Non-Af Amer) POC Glucose (mg/dL) 146 H (65-110) mg/dL Random Glucose (75-110) mg/dL Calcium (8.6-10.4) mg/dl Phosphorus (2.5-4.5) mg/dL Magnesium (1.6-2.3) mg/dL Total Bilirubin (0.2-1.3) mg/dL AST (17-59) U/L ALT (21-72) U/L Alkaline Phosphatase (38-126) U/L Total Protein (6.3-8.3) g/dL Albumin (3.5-5.0) g/dL Globulin (2.2-3.9) gm/dL Albumin/Globulin Ratio (1.0-2.1) Arterial Blood Potassium 3.8 (3.6-5.2) mmol/L Levetiracetam mcg/mL 11/06/18 11/04/18 Range/Units 23:28 05:39 WBC (4.8-10.8) K/uL RBC (4.40-5.90) Mil/uL Hgb (12.0-18.0) g/dL Hct (35.0-51.0) % MCV (80.0-94.0) fL MCH (27.0-31.0) pg MCHC (33.0-37.0) g/dL RDW (11.5-14.5) % Plt Count (130-400) K/uL MPV (7.2-11.7) fL Neut % (Auto) (50.0-75.0) % Lymph % (Auto) (20.0-40.0) % Marion % (Auto) (0.0-10.0) % Eos % (Auto) (0.0-4.0) % Baso % (Auto) (0.0-2.0) % Neut # (Auto) (1.8-7.0) K/uL Lymph # (Auto) (1.0-4.3) K/uL Marion # (Auto) (0.0-0.8) K/uL Eos # (Auto) (0.0-0.7) K/uL Baso # (Auto) (0.0-0.2) K/uL Puncture Site pCO2 (35-45) mm/Hg pO2 (80-100) mm/Hg HCO3 (21-28) mmol/L ABG pH (7.35-7.45) ABG Total CO2 (22-28) mmol/L ABG O2 Saturation (95-98) % ABG Base Excess (-2.0-3.0) mmol/L Ruiz Test ABG Potassium (3.6-5.2) mmol/L A-a O2 Difference mm/Hg Respiratory Index Sodium (132-148) mmol/l Chloride (98-107) mmol/L Glucose (75-110) mg/dl Lactate (0.7-2.1) mmol/L Vent Mode Mechanical Rate FiO2 % Tidal Volume PEEP Potassium (3.6-5.2) mmol/L Carbon Dioxide (22-30) mmol/L Anion Gap (10-20) BUN (9-20) mg/dL Creatinine (0.8-1.5) mg/dL Est GFR ( Amer) Est GFR (Non-Af Amer) POC Glucose (mg/dL) 212 H (65-110) mg/dL Random Glucose (75-110) mg/dL Calcium (8.6-10.4) mg/dl Phosphorus (2.5-4.5) mg/dL Magnesium (1.6-2.3) mg/dL Total Bilirubin (0.2-1.3) mg/dL AST (17-59) U/L ALT (21-72) U/L Alkaline Phosphatase (38-126) U/L Total Protein (6.3-8.3) g/dL Albumin (3.5-5.0) g/dL Globulin (2.2-3.9) gm/dL Albumin/Globulin Ratio (1.0-2.1) Arterial Blood Potassium (3.6-5.2) mmol/L Levetiracetam 19.0 mcg/mL Laboratory Results - last 24 hr 11/04/18 11/06/18 11/07/18 05:39 23:28 04:00 WBC 7.2 RBC 3.58 L Hgb 9.2 L Hct 28.5 L MCV 79.7 L MCH 25.7 L MCHC 32.2 L RDW 20.0 H Plt Count 165 MPV 9.6 Neut % (Auto) 74.0 Lymph % (Auto) 20.7 Marion % (Auto) 3.5 Eos % (Auto) 1.4 Baso % (Auto) 0.4 Neut # (Auto) 5.4 Lymph # (Auto) 1.5 Marion # (Auto) 0.3 Eos # (Auto) 0.1 Baso # (Auto) 0.0 Puncture Site pCO2 pO2 HCO3 ABG pH ABG Total CO2 ABG O2 Saturation ABG Base Excess Ruiz Test ABG Potassium A-a O2 Difference Respiratory Index Sodium Chloride Glucose Lactate Vent Mode Mechanical Rate FiO2 Tidal Volume PEEP Potassium Carbon Dioxide Anion Gap BUN Creatinine Est GFR ( Amer) Est GFR (Non-Af Amer) POC Glucose (mg/dL) 212 H Random Glucose Calcium Phosphorus Magnesium Total Bilirubin AST ALT Alkaline Phosphatase Total Protein Albumin Globulin Albumin/Globulin Ratio Arterial Blood Potassium Levetiracetam 19.0 11/07/18 11/07/18 11/07/18 05:31 06:02 06:09 WBC RBC Hgb Hct MCV MCH MCHC RDW Plt Count MPV Neut % (Auto) Lymph % (Auto) Marion % (Auto) Eos % (Auto) Baso % (Auto) Neut # (Auto) Lymph # (Auto) Marion # (Auto) Eos # (Auto) Baso # (Auto) Puncture Site Rr pCO2 37 pO2 74 L HCO3 29.7 H ABG pH 7.51 H ABG Total CO2 30.6 H ABG O2 Saturation 97.2 ABG Base Excess 6.2 H Ruiz Test Pos ABG Potassium 3.8 A-a O2 Difference 201.0 Respiratory Index 2.7 Sodium 147.0 144 Chloride 116.0 H 111 H Glucose 150 H Lactate 1.9 Vent Mode Prvc Mechanical Rate 20 FiO2 45.0 Tidal Volume 500 PEEP 5 Potassium 3.8 Carbon Dioxide 30 Anion Gap 8 L BUN 24 H Creatinine 1.0 Est GFR ( Amer) > 60 Est GFR (Non-Af Amer) > 60 POC Glucose (mg/dL) 146 H Random Glucose 140 H D Calcium 7.5 L Phosphorus 2.2 L Magnesium 1.7 Total Bilirubin 0.2 AST 22 ALT 24 Alkaline Phosphatase 167 H Total Protein 5.8 L Albumin 2.1 L Globulin 3.8 Albumin/Globulin Ratio 0.5 L Arterial Blood Potassium 3.8 Levetiracetam 11/07/18 11/07/18 11:18 17:40 WBC RBC Hgb Hct MCV MCH MCHC RDW Plt Count MPV Neut % (Auto) Lymph % (Auto) Marion % (Auto) Eos % (Auto) Baso % (Auto) Neut # (Auto) Lymph # (Auto) Marion # (Auto) Eos # (Auto) Baso # (Auto) Puncture Site pCO2 pO2 HCO3 ABG pH ABG Total CO2 ABG O2 Saturation ABG Base Excess Ruiz Test ABG Potassium A-a O2 Difference Respiratory Index Sodium Chloride Glucose Lactate Vent Mode Mechanical Rate FiO2 Tidal Volume PEEP Potassium Carbon Dioxide Anion Gap BUN Creatinine Est GFR ( Amer) Est GFR (Non-Af Amer) POC Glucose (mg/dL) 190 H 203 H Random Glucose Calcium Phosphorus Magnesium Total Bilirubin AST ALT Alkaline Phosphatase Total Protein Albumin Globulin Albumin/Globulin Ratio Arterial Blood Potassium Levetiracetam Radiology Impressions: Radiology Impressions Chest X-Ray 11/07/18 04:00 IMPRESSION: Endotracheal tube is not well visualized obscured by overlying nasogastric tube. Nasogastric tube and IJ approach central venous catheter appear in satisfactory position. Moderate interstitial edema or infection. Attending/Attestation - Attestation I have personally seen and examined this patient.: Yes I have fully participated in the care of the patient.: Yes I have reviewed all pertinent clinical information: Yes Notes (Text): 11/07/18 18:09 Today: , November 07, 2018 The Patient was seen and examined at the bedside, Medical records reviewed, and management issues were discussed and formulated with the house staff. I have reviewed all the relevant clinical, laboratory, hemodynamic, radiographic data and medications Events reviewed Pain issues, skin care, head of the bed elevation, glycemic control were addressed. Agree with above resident's assessment and treatment plans of care as transcribed in Dr. Stanton's note. Critically ill patient with acute hypoxemic/hypercapnic respiratory failure, Respiratory acidosis, Severe sepsis from Bilateral pneumonia, CXR: bilateral pulmonary infiltrates Bacteremia Acute kidney injury, now with Improving renal function history of CVA, paraplegia, and dementia Continue IV Antibiotics with Vancomycin and zosyn Continue nebulizer treatment Daily CAT/SBT GI PPX: Pepcid DVT PPX: Lovenox 40 mg SQ Daily Discussed with the family in details diagnosis, treatment plans and alternatives, Code status: Full code Total critical care time 38 minutes
--- NOTE | 2018-11-07 13:34 | CP.PCM.PN ---
<Jenna Fine - Last Filed: 11/07/18 13:34> Subjective - Date & Time of Evaluation Date of Evaluation: 11/07/18 Time of Evaluation: 13:00 - Subjective Subjective: dictated Objective - Vital Signs/Intake and Output Vital Signs (last 24 hours): Temp Pulse Resp BP Pulse Ox 100.2 F H 52 L 21 131/58 L 95 11/07/18 12:00 11/07/18 13:00 11/07/18 13:00 11/07/18 13:00 11/07/18 12:01 Intake and Output: 11/07/18 11/07/18 06:59 18:59 Intake Total 1781.2 1865.1 Output Total 745 475 Balance 1036.2 1390.1 - Medications Medications: Current Medications Enoxaparin Sodium (Lovenox) 40 mg SC DAILY [facility] Last Admin: 11/07/18 09:13 Dose: 40 mg Famotidine (Pepcid) 20 mg IVP Q12 [facility] Last Admin: 11/07/18 09:12 Dose: 20 mg Lactated Ringer's (Lactated Ringer's) 1,000 mls @ 100 mls/hr IV .Q10H [facility] Last Admin: 11/07/18 12:07 Dose: Not Given Piperacillin Sod/Tazobactam Sod (Zosyn 3.375 Gm Iv Premix) 3.375 gm in 50 mls @ 100 mls/hr IVPB Q8H [facility]; Protocol Last Admin: 11/07/18 08:33 Dose: 100 mls/hr Dexmedetomidine HCl 200 mcg/ (Sodium Chloride) 50 mls @ 2.56 mls/hr IV TITR PRN; Protocol PRN Reason: Agitation Last Titration: 11/07/18 12:30 Dose: 0.3 mcg/kg/hr, 3.83 mls/hr Vancomycin HCl 1 gm/ Sodium (Chloride) 250 mls @ 166.7 mls/hr IVPB Q24H [facility]; Pr otocol Last Admin: 11/07/18 09:13 Dose: 166.7 mls/hr Voriconazole 100 mg/ Sodium (Chloride) 100 mls @ 100 mls/hr IVPB Q12H [facility] Last Admin: 11/07/18 13:14 Dose: 100 mls/hr Fentanyl Citrate 2,500 mcg/ (Sodium Chloride) 250 mls @ 10.87 mls/hr IV .Q23H [facility]; Protocol Last Titration: 11/07/18 12:06 Dose: 1 mcg/kg/hr, 5.43 mls/hr Insulin Human Regular (Novolin R) 0 unit SC Q6H [facility]; Protocol Last Admin: 11/07/18 11:23 Dose: Not Given Levetiracetam (Keppra) 500 mg PO BID [facility] Last Admin: 11/07/18 09:12 Dose: 500 mg Valproate Sodium (Depakene Oral Soln) 250 mg PO BID [facility] Last Admin: 11/07/18 09:12 Dose: 250 mg - Labs Labs: 11/07/18 04:00 11/07/18 06:09 PT 18.1 SECONDS (9.7-12.2) H 11/03/18 16:59 INR 1.7 11/03/18 16:59 APTT 46 SECONDS (21-34) H 11/03/18 16:59 <Francisca Stanton - Last Filed: 11/07/18 13:48> Objective - Vital Signs/Intake and Output Vital Signs (last 24 hours): Temp Pulse Resp BP Pulse Ox 100.2 F H 52 L 21 131/58 L 95 11/07/18 12:00 11/07/18 13:00 11/07/18 13:00 11/07/18 13:00 11/07/18 12:01 Intake and Output: 11/07/18 11/07/18 06:59 18:59 Intake Total 1781.2 1865.1 Output Total 745 475 Balance 1036.2 1390.1 - Medications Medications: Current Medications Enoxaparin Sodium (Lovenox) 40 mg SC DAILY [facility] Last Admin: 11/07/18 09:13 Dose: 40 mg Famotidine (Pepcid) 20 mg IVP Q12 [facility] Last Admin: 11/07/18 09:12 Dose: 20 mg Lactated Ringer's (Lactated Ringer's) 1,000 mls @ 100 mls/hr IV .Q10H [facility] Last Admin: 11/07/18 12:07 Dose: Not Given Piperacillin Sod/Tazobactam Sod (Zosyn 3.375 Gm Iv Premix) 3.375 gm in 50 mls @ 100 mls/hr IVPB Q8H [facility]; Protocol Last Admin: 11/07/18 08:33 Dose: 100 mls/hr Dexmedetomidine HCl 200 mcg/ (Sodium Chloride) 50 mls @ 2.56 mls/hr IV TITR PRN; Protocol PRN Reason: Agitation Last Titration: 11/07/18 12:30 Dose: 0.3 mcg/kg/hr, 3.83 mls/hr Vancomycin HCl 1 gm/ Sodium (Chloride) 250 mls @ 166.7 mls/hr IVPB Q24H [facility]; Protocol Last Admin: 11/07/18 09:13 Dose: 166.7 mls/hr Voriconazole 100 mg/ Sodium (Chloride) 100 mls @ 100 mls/hr IVPB Q12H [facility] Last Admin: 11/07/18 13:14 Dose: 100 mls/hr Fentanyl Citrate 2,500 mcg/ (Sodium Chloride) 250 mls @ 10.87 mls/hr IV .Q23H [facility]; Protocol Last Titration: 11/07/18 12:06 Dose: 1 mcg/kg/hr, 5.43 mls/hr Insulin Human Regular (Novolin R) 0 unit SC Q6H [facility]; Protocol Last Admin: 11/07/18 11:23 Dose: Not Given Levetiracetam (Keppra) 500 mg PO BID [facility] Last Admin: 11/07/18 09:12 Dose: 500 mg Valproate Sodium (Depakene Oral Soln) 250 mg PO BID [facility] Last Admin: 11/07/18 09:12 Dose: 250 mg - Labs Labs: 11/07/18 04:00 11/07/18 06:09 PT 18.1 SECONDS (9.7-12.2) H 11/03/18 16:59 INR 1.7 11/03/18 16:59 APTT 46 SECONDS (21-34) H 11/03/18 16:59
--- NOTE | 2018-11-07 13:49 | CP.PCM.PCO ---
Physician Communication Note - Physician Communication Note Physician Communication Note: see above
--- NOTE | 2018-11-07 17:37 | CP.PCM.CON ---
History of Present Illness - History of Present Illness History of Present Illness: Reason for consultation: respiratory failure, bl pneumonia HPI: Patient is a 63-year-old male with a PMH of paraplegia and respiratory distress presented to the ED via EMS from snf for evaluation for respiratory failure. Patient was intubated by EMS. ROS: unable to obtain 2/2 patient's inability to answer questions PMH: Alzheimer's Disease, anxiety, arthritis, bipolar disorder, CVA, depression, diabetes, fractures (nondisplaced avulsion fracture of right talus), HTN, hypercholesterolemia, pneumonia (aspiration), seizures Surgical hx: appendectomy Family hx: unknown Allergies: NKA Meds: Lovenox, norepinephrine bitartrate, zosyn, dexmedetomidine, vancomycin, voriconazole, insulin, keppra, valproate Blood culture (central line) 11/05: no growth after 48 hours Sputum culture 11/04: staph aureus MRSA culture 11/03: negative Blood culture 11/03: gram positive cocci in clusters, coagulase negative staphylococcus 11/07: Hbg 9.2. Hct 28.5, Glucose 140 ABG 11/07: pCO2 37, pO2 74 L, HCO3 29.7, pH 7.51, nl lactate CXR 11/06: Stable position of support line and tubes. Interval improved aeration in the lungs with persistent moderate pulmonary venous congestion. PE: Patient seen and examined at bedside in ICU. Resting comfortably and in no acute distress. Daily CXR and ABG. On ventilator, wean as tolerated. Tolerating CPAP with high pressure support. Continue ABX and continue present treatment. Past Patient History - Infectious Disease Hx of Infectious Diseases: None - Past Medical History & Family History Past Medical History?: Yes - Past Social History Smoking Status: Never Smoked Home Situation {Lives}: Jail - CARDIAC Hx Hypercholesterolemia: Yes Hx Hypertension: Yes - PULMONARY Hx Pneumonia: Yes (Aspiration) - NEUROLOGICAL Hx Alzheimer's Disease: Yes Hx Dementia: Yes Hx Seizures: Yes - HEENT Hx HEENT Problems: Yes Hx Cataracts: Yes (Both Cataract Surgery) - RENAL Hx Chronic Kidney Disease: No - ENDOCRINE/METABOLIC Hx Endocrine Disorders: Yes Hx Diabetes Mellitus Type 2: Yes - HEMATOLOGICAL/ONCOLOGICAL Hx Blood Disorders: No - INTEGUMENTARY Hx Dermatological Problems: No - MUSCULOSKELETAL/RHEUMATOLOGICAL Hx Arthritis: Yes Hx Fractures: Yes (non displaced avulsion fracture of right talus) - GASTROINTESTINAL Hx Gastrointestinal Disorders: Yes Hx Gastroesophageal Reflux: Yes - GENITOURINARY/GYNECOLOGICAL Hx Genitourinary Disorders: Yes Hx Prostate Problems: Yes (BPH) - PSYCHIATRIC Hx Anxiety: Yes Hx Bipolar Disorder: Yes Hx Depression: Yes Hx Substance Use: No - SURGICAL HISTORY Hx Appendectomy: Yes - ANESTHESIA Hx Anesthesia: Yes Hx Anesthesia Reactions: No Hx Malignant Hyperthermia: No Meds Allergies/Adverse Reactions: Allergies Allergy/AdvReac Type Severity Reaction Status Date / Time No Known Allergies Allergy Verified 11/03/18 16:30 - Medications Medications: Current Medications Enoxaparin Sodium (Lovenox) 40 mg SC DAILY [facility] Last Admin: 11/07/18 09:13 Dose: 40 mg Famotidine (Pepcid) 20 mg IVP Q12 [facility] Last Admin: 11/07/18 09:12 Dose: 20 mg Lactated Ringer's (Lactated Ringer's) 1,000 mls @ 100 mls/hr IV .Q10H [facility] Last Admin: 11/07/18 12:07 Dose: Not Given Piperacillin Sod/Tazobactam Sod (Zosyn 3.375 Gm Iv Premix) 3.375 gm in 50 mls @ 100 mls/hr IVPB Q8H [facility]; Protocol Last Admin: 11/07/18 16:46 Dose: 100 mls/hr Dexmedetomidine HCl 200 mcg/ (Sodium Chloride) 50 mls @ 2.56 mls/hr IV TITR PRN; Protocol PRN Reason: Agitation Last Titration: 11/07/18 16:48 Dose: 0.1 mcg/kg/hr, 1.28 mls/hr Vancomycin HCl 1 gm/ Sodium (Chloride) 250 mls @ 166.7 mls/hr IVPB Q24H [facility]; Protocol Last Admin: 11/07/18 09:13 Dose: 166.7 mls/hr Voriconazole 100 mg/ Sodium (Chloride) 100 mls @ 100 mls/hr IVPB Q12H [facility] Last Admin: 11/07/18 13:14 Dose: 100 mls/hr Fentanyl Citrate 2,500 mcg/ (Sodium Chloride) 250 mls @ 10.87 mls/hr IV .Q23H [facility]; Protocol Last Titration: 11/07/18 12:06 Dose: 1 mcg/kg/hr, 5.43 mls/hr Insulin Human Regular (Novolin R) 0 unit SC Q6H [facility]; Protocol Last Admin: 11/07/18 11:23 Dose: Not Given Levetiracetam (Keppra) 500 mg PO BID [facility] Last Admin: 11/07/18 17:04 Dose: 500 mg Valproate Sodium (Depakene Oral Soln) 250 mg PO BID [facility] Last Admin: 11/07/18 17:04 Dose: 250 mg Results - Vital Signs Recent Vital Signs: Last Vital Signs Temp 98.7 F 11/07/18 16:00 Pulse 50 L 11/07/18 17:01 Resp 20 11/07/18 17:01 BP 119/55 L 11/07/18 17:01 Pulse Ox 96 11/07/18 17:01 - Labs Result Diagrams: 11/07/18 04:00 11/07/18 06:09 Labs: Laboratory Results - last 24 hr 11/04/18 11/06/18 11/06/18 05:39 17:32 23:28 WBC RBC Hgb Hct MCV MCH MCHC RDW Plt Count MPV Neut % (Auto) Lymph % (Auto) [place] % (Auto) Eos % (Auto) Baso % (Auto) Neut # (Auto) Lymph # (Auto) [place] # (Auto) Eos # (Auto) Baso # (Auto) Puncture Site pCO2 pO2 HCO3 ABG pH ABG Total CO2 ABG O2 Saturation ABG Base Excess Ruiz Test ABG Potassium A-a O2 Difference Respiratory Index Sodium Chloride Glucose Lactate Vent Mode Mechanical Rate FiO2 Tidal Volume PEEP Potassium Carbon Dioxide Anion Gap BUN Creatinine Est GFR ( Amer) Est GFR (Non-Af Amer) POC Glucose (mg/dL) 224 H 212 H Random Glucose Calcium Phosphorus Magnesium Total Bilirubin AST ALT Alkaline Phosphatase Total Protein Albumin Globulin Albumin/Globulin Ratio Arterial Blood Potassium Levetiracetam 19.0 11/07/18 11/07/18 11/07/18 04:00 05:31 06:02 WBC 7.2 RBC 3.58 L Hgb 9.2 L Hct 28.5 L MCV 79.7 L MCH 25.7 L MCHC 32.2 L RDW 20.0 H Plt Count 165 MPV 9.6 Neut % (Auto) 74.0 Lymph % (Auto) 20.7 [place] % (Auto) 3.5 Eos % (Auto) 1.4 Baso % (Auto) 0.4 Neut # (Auto) 5.4 Lymph # (Auto) 1.5 [place] # (Auto) 0.3 Eos # (Auto) 0.1 Baso # (Auto) 0.0 Puncture Site Rr pCO2 37 pO2 74 L HCO3 29.7 H ABG pH 7.51 H ABG Total CO2 30.6 H ABG O2 Saturation 97.2 ABG Base Excess 6.2 H Ruiz Test Pos ABG Potassium 3.8 A-a O2 Difference 201.0 Respiratory Index 2.7 Sodium 147.0 Chloride 116.0 H Glucose 150 H Lactate 1.9 Vent Mode Prvc Mechanical Rate 20 FiO2 45.0 Tidal Volume 500 PEEP 5 Potassium Carbon Dioxide Anion Gap BUN Creatinine Est GFR ( Amer) Est GFR (Non-Af Amer) POC Glucose (mg/dL) 146 H Random Glucose Calcium Phosphorus Magnesium Total Bilirubin AST ALT Alkaline Phosphatase Total Protein Albumin Globulin Albumin/Globulin Ratio Arterial Blood Potassium 3.8 Levetiracetam 11/07/18 11/07/18 06:09 11:18 WBC RBC Hgb Hct MCV MCH MCHC RDW Plt Count MPV Neut % (Auto) Lymph % (Auto) [place] % (Auto) Eos % (Auto) Baso % (Auto) Neut # (Auto) Lymph # (Auto) [place] # (Auto) Eos # (Auto) Baso # (Auto) Puncture Site pCO2 pO2 HCO3 ABG pH ABG Total CO2 ABG O2 Saturation ABG Base Excess Ruiz Test ABG Potassium A-a O2 Difference Respiratory Index Sodium 144 Chloride 111 H Glucose Lactate Vent Mode Mechanical Rate FiO2 Tidal Volume PEEP Potassium 3.8 Carbon Dioxide 30 Anion Gap 8 L BUN 24 H Creatinine 1.0 Est GFR ( Amer) > 60 Est GFR (Non-Af Amer) > 60 POC Glucose (mg/dL) 190 H Random Glucose 140 H D Calcium 7.5 L Phosphorus 2.2 L Magnesium 1.7 Total Bilirubin 0.2 AST 22 ALT 24 Alkaline Phosphatase 167 H Total Protein 5.8 L Albumin 2.1 L Globulin 3.8 Albumin/Globulin Ratio 0.5 L Arterial Blood Potassium Levetiracetam
--- NOTE | 2018-11-07 17:52 | CP.PCM.PN ---
Subjective - Date & Time of Evaluation Date of Evaluation: 11/07/18 Time of Evaluation: 10:45 - Subjective Subjective: clinically same Objective - Vital Signs/Intake and Output Vital Signs (last 24 hours): Temp Pulse Resp BP Pulse Ox 98.7 F 50 L 20 119/55 L 96 11/07/18 16:00 11/07/18 17:01 11/07/18 17:01 11/07/18 17:01 11/07/18 17:01 Intake and Output: 11/07/18 11/07/18 06:59 18:59 Intake Total 1781.2 2098.1 Output Total 745 825 Balance 1036.2 1273.1 - Medications Medications: Current Medications Enoxaparin Sodium (Lovenox) 40 mg SC DAILY [facility] Last Admin: 11/07/18 09:13 Dose: 40 mg Famotidine (Pepcid) 20 mg IVP Q12 [facility] Last Admin: 11/07/18 09:12 Dose: 20 mg Lactated Ringer's (Lactated Ringer's) 1,000 mls @ 100 mls/hr IV .Q10H [facility] Last Admin: 11/07/18 12:07 Dose: Not Given Piperacillin Sod/Tazobactam Sod (Zosyn 3.375 Gm Iv Premix) 3.375 gm in 50 mls @ 100 mls/hr IVPB Q8H [facility]; Protocol Last Admin: 11/07/18 16:46 Dose: 100 mls/hr Dexmedetomidine HCl 200 mcg/ (Sodium Chloride) 50 mls @ 2.56 mls/hr IV TITR PRN; Protocol PRN Reason: Agitation Last Titration: 11/07/18 17:51 Dose: 0.2 mcg/kg/hr, 2.56 mls/hr Vancomycin HCl 1 gm/ Sodium (Chloride) 250 mls @ 166.7 mls/hr IVPB Q24H [facility]; Protocol Last Admin: 11/07/18 09:13 Dose: 166.7 mls/hr Voriconazole 100 mg/ Sodium (Chloride) 100 mls @ 100 mls/hr IVPB Q12H [facility] Last Admin: 11/07/18 13:14 Dose: 100 mls/hr Fentanyl Citrate 2,500 mcg/ (Sodium Chloride) 250 mls @ 10.87 mls/hr IV .Q23H [facility]; Protocol Last Titration: 11/07/18 12:06 Dose: 1 mcg/kg/hr, 5.43 mls/hr Insulin Human Regular (Novolin R) 0 unit SC Q6H [facility]; Protocol Last Admin: 11/07/18 17:46 Dose: 2 units Levetiracetam (Keppra) 500 mg PO BID [facility] Last Admin: 11/07/18 17:04 Dose: 500 mg Valproate Sodium (Depakene Oral Soln) 250 mg PO BID [facility] Last Admin: 11/07/18 17:04 Dose: 250 mg - Labs Labs: 11/07/18 04:00 11/07/18 06:09 PT 18.1 SECONDS (9.7-12.2) H 11/03/18 16:59 INR 1.7 11/03/18 16:59 APTT 46 SECONDS (21-34) H 11/03/18 16:59 - Constitutional Appears: Well - Head Exam Head Exam: ATRAUMATIC, NORMAL INSPECTION, NORMOCEPHALIC - Eye Exam Eye Exam: EOMI, Normal appearance, PERRL Pupil Exam: NORMAL ACCOMODATION, PERRL - ENT Exam ENT Exam: Mucous Membranes Moist, Normal Exam - Neck Exam Neck Exam: Full ROM, Normal Inspection. absent: Lymphadenopathy - Respiratory Exam Respiratory Exam: Decreased Breath Sounds - Cardiovascular Exam Cardiovascular Exam: REGULAR RHYTHM, +S1, +S2 - GI/Abdominal Exam GI & Abdominal Exam: Soft, Diminished Bowel Sounds - Rectal Exam Rectal Exam: Deferred
[2018-11-08] MEDS: (Novolin R) Insulin Human Regular 100 units/ml vial SC SCH ×4 (00:12→18:02)
[2018-11-08] MEDS: Piperacill/Tazo 3.375gm in Dex 3.375 GM/50 ML BAG IVPB SCH ×3 (00:30→17:09)
--- NOTE | 2018-11-08 00:32 | PN ---
DATE: 11/07/2018 SUBJECTIVE: The patient was seen today. He still remains intubated, sedated and getting IV antibiotics and antifungals. OBJECTIVE: VITAL SIGNS: T-max is 98.7; heart rate is 51, it dropped to 47; blood pressure is 101/48; respirations are 21. HEENT: Head is atraumatic, normocephalic. He is intubated. NECK: Supple. LUNGS: Have coarse breath sounds. HEART: S1, S2 is bradycardic. ABDOMEN: Soft, nontender. No guarding, no rigidity present. EXTREMITIES: Have foot protectors. ASSESSMENT AND PLAN: His echo was abnormal and he will probably need a transesophageal echocardiogram. Sputum came out methicillin-sensitive Staphylococcus aureus, however, blood culture had one set which was coagulase negative Staphylococcus and that was Methicillin-resistant Staphylococcus epidermidis. So I will continue all the antibiotics at this time. He came in on 11/03/2018 and today is the fourth day of his antibiotics. 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 Has acute respiratory failure, bilateral pneumonia, probably aspiration and one set of coagulase-negative Methicillin-resistant Staphylococcus epidermidis and sputum has Staphylococcus aureus which is methicillin-sensitive Staphylococcus at this time. Labs are noted. Labs show white count is 7.2 which is better than before. His oxygen is noted. Creatinine is 1 and BUN is 24. Liver enzymes are stable at this time except for alkaline phosphatase which is 167, so we will continue present treatment at this time. He will need a cardiology evaluation for transesophageal echocardiogram when possible. Jenna Fine MD
[2018-11-08] MEDS: Dexmedetomidine Hydrochloride 200 MCG in Sodium Chloride 0.9% 48 ML IV PRN (02:00)
[2018-11-08] MEDS: VORICONAZOLE IVPB SCH ×2 (03:00→14:49)
[2018-11-08] MEDS: SODIUM CHLORIDE 0.9% IVPB SCH ×2 (03:00→14:49)
[2018-11-08 05:26] LABS: ABG ALLEN TEST POS; ARTERIAL BLOOD GAS HCO3 29.4 mmol/L (21-28); ARTERIAL BLOOD GAS O2 SAT 96.9 % (95-98); ARTERIAL BLOOD GAS PCO2 44 mm/Hg (35-45); ARTERIAL BLOOD GAS PH 7.45 (7.35-7.45); ARTERIAL BLOOD GAS PO2 76 mm/Hg (80-100)
[2018-11-08 06:28] LABS: BASO % 0.3 % (0.0-2.0); EOS # 0.2 K/uL (0.0-0.7); EOS % 2.2 % (0.0-4.0); HEMOGLOBIN 8.5 g/dL (12.0-18.0); LYMPH % 28.1 % (20.0-40.0); MEAN CELL VOLUME 80.4 fL (80.0-94.0); MEAN CORPUSCULAR HEMOGLOBIN 25.4 pg (27.0-31.0); MEAN CORPUSCULAR HGB CONC 31.6 g/dL (33.0-37.0); MEAN PLATELET VOLUME 9.7 fL (7.2-11.7); MONO # 0.4 K/uL (0.0-0.8); MONO % 5.3 % (0.0-10.0); NEUT # 4.5 K/uL (1.8-7.0); NEUT % 64.1 % (50.0-75.0); RBC 3.34 Mil/uL (4.40-5.90); RED CELL DISTRIBUTION WIDTH 20.2 % (11.5-14.5); WHITE BLOOD COUNT 6.9 K/uL (4.8-10.8)
[2018-11-08 06:52] LABS: ALB/GLOB RATIO 0.6 (1.0-2.1); ALBUMIN 2.1 g/dL (3.5-5.0); ALT/SGPT 19 U/L (21-72); AST/SGOT 29 U/L (17-59); BLOOD UREA NITROGEN 23 mg/dL (9-20); CALCIUM 7.5 mg/dl (8.6-10.4); GFR NON-AFRICAN AMERICAN > 60
--- NOTE | 2018-11-08 07:44 | CP.PCM.CON ---
History of Present Illness - History of Present Illness History of Present Illness: consultation for evaluation of endocarditis HPI: 63-year-old male with past medical history significant for questionable paraplegia questionable Alzheimer's questionable bipolar CVA hypertension diabetes was admitted with secondary respiratory failure intubated by EMS during the course of hospitalization patient underwent an echocardiogram which shows thickening of the aortic valve with possible underlying endocarditis for which I was called to evaluate the patient at the time of my evaluation patient was awake and responsive and would understand his language when I spoke to him in [place]. I am not sure of his mental status at baseline and the diagnosis of underlying dementia as stated in the medical records. Patient has been seen by ID and pulmonary critical care who are following the patient for his pulmonary status. He has been maintained on Lasix therapy with Lasix 40 mg IV every 12 hours along with IV antibiotics including Zosyn and vancomycin. There was some concern for possible aspiration pneumonia during his hospitalization and after the transthoracic echocardiogram there is a clinical suspicion for possible endocarditis. Review of Systems - Review of Systems Systems not reviewed;Unavailable: Acuity of Condition - Constitutional Constitutional: As Per HPI - EENT Eyes: As Per HPI Ears: As Per HPI Nose/Mouth/Throat: As Per HPI - Cardiovascular Cardiovascular: As Per HPI - Respiratory Respiratory: As Per HPI - Gastrointestinal Gastrointestinal: As Per HPI - Genitourinary Genitourinary: As Per HPI - Reproductive: Male Reproductive:Male: As Per HPI - Musculoskeletal Musculoskeletal: As Per HPI - Integumentary Integumentary: As Per HPI - Neurological Neurological: As Per HPI - Psychiatric Psychiatric: As Per HPI - Endocrine Endocrine: As Per HPI - Hematologic/Lymphatic Hematologic: As Per HPI Past Patient History - Infectious Disease Hx of Infectious Diseases: None - Past Medical History & Family History Past Medical History?: Yes - Past Social History Smoking Status: Never Smoked Home Situation {Lives}: Fdc - CARDIAC Hx Hypercholesterolemia: Yes Hx Hypertension: Yes - PULMONARY Hx Pneumonia: Yes (Aspiration) - NEUROLOGICAL Hx Alzheimer's Disease: Yes Hx Dementia: Yes Hx Seizures: Yes - HEENT Hx HEENT Problems: Yes Hx Cataracts: Yes (Both Cataract Surgery) - RENAL Hx Chronic Kidney Disease: No - ENDOCRINE/METABOLIC Hx Endocrine Disorders: Yes Hx Diabetes Mellitus Type 2: Yes - HEMATOLOGICAL/ONCOLOGICAL Hx Blood Disorders: No - INTEGUMENTARY Hx Dermatological Problems: No - MUSCULOSKELETAL/RHEUMATOLOGICAL Hx Arthritis: Yes Hx Fractures: Yes (non displaced avulsion fracture of right talus) - GASTROINTESTINAL Hx Gastrointestinal Disorders: Yes Hx Gastroesophageal Reflux: Yes - GENITOURINARY/GYNECOLOGICAL Hx Genitourinary Disorders: Yes Hx Prostate Problems: Yes (BPH) - PSYCHIATRIC Hx Anxiety: Yes Hx Bipolar Disorder: Yes Hx Depression: Yes Hx Substance Use: No - SURGICAL HISTORY Hx Appendectomy: Yes - ANESTHESIA Hx Anesthesia: Yes Hx Anesthesia Reactions: No Hx Malignant Hyperthermia: No Meds Allergies/Adverse Reactions: Allergies Allergy/AdvReac Type Severity Reaction Status Date / Time No Known Allergies Allergy Verified 11/03/18 16:30 - Medications Medications: Current Medications Enoxaparin Sodium (Lovenox) 40 mg SC DAILY [facility] Last Admin: 11/07/18 09:13 Dose: 40 mg Famotidine (Pepcid) 20 mg IVP Q12 [facility] Last Admin: 11/07/18 21:19 Dose: 20 mg Lactated Ringer's (Lactated Ringer's) 1,000 mls @ 100 mls/hr IV .Q10H [facility] Last Admin: 11/07/18 22:00 Dose: 100 mls/hr Piperacillin Sod/Tazobactam Sod (Zosyn 3.375 Gm Iv Premix) 3.375 gm in 50 mls @ 100 mls/hr IVPB Q8H [facility]; Protocol Last Admin: 11/08/18 00:30 Dose: 100 mls/hr Dexmedetomidine HCl 200 mcg/ (Sodium Chloride) 50 mls @ 2.56 mls/hr IV TITR PRN; Protocol PRN Reason: Agitation Last Titration: 11/07/18 17:51 Dose: 0.2 mcg/kg/hr, 2.56 mls/hr Vancomycin HCl 1 gm/ Sodium (Chloride) 250 mls @ 166.7 mls/hr IVPB Q24H [facility]; Protocol Last Admin: 11/07/18 09:13 Dose: 166.7 mls/hr Voriconazole 100 mg/ Sodium (Chloride) 100 mls @ 100 mls/hr IVPB Q12H [facility] Last Admin: 11/08/18 03:00 Dose: 100 mls/hr Fentanyl Citrate 2,500 mcg/ (Sodium Chloride) 250 mls @ 10.87 mls/hr IV .Q23H [facility]; Protocol Last Admin: 11/07/18 21:00 Dose: Not Given Insulin Human Regular (Novolin R) 0 unit SC Q6H [facility]; Protocol Last Admin: 11/08/18 05:54 Dose: Not Given Levetiracetam (Keppra) 500 mg PO BID [facility] Last Admin: 11/07/18 17:04 Dose: 500 mg Valproate Sodium (Depakene Oral Soln) 250 mg PO BID [facility] Last Admin: 11/07/18 17:04 Dose: 250 mg Physical Exam - Constitutional Appears: Toxic - Head Exam Head Exam: ATRAUMATIC, NORMAL INSPECTION, NORMOCEPHALIC - Eye Exam Eye Exam: EOMI, Normal appearance, PERRL Pupil Exam: NORMAL ACCOMODATION, PERRL - ENT Exam ENT Exam: Mucous Membranes Moist, Normal Exam - Neck Exam Neck exam: Positive for: Normal Inspection - Respiratory Exam Respiratory Exam: Clear to Auscultation Bilateral, NORMAL BREATHING PATTERN - Cardiovascular Exam Cardiovascular Exam: REGULAR RHYTHM, +S1, +S2, Systolic Murmur - GI/Abdominal Exam GI & Abdominal Exam: Normal Bowel Sounds, Soft. absent: Tenderness - Extremities Exam Extremities exam: Positive for: normal inspection - Back Exam Back exam: NORMAL INSPECTION - Neurological Exam Neurological exam: Alert, CN II-XII Intact, Normal Gait, Oriented x3, Reflexes Normal - Psychiatric Exam Psychiatric exam: Normal Affect, Normal Mood - Skin Skin Exam: Dry, Intact, Normal Color, Warm Results - Vital Signs Recent Vital Signs: Last Vital Signs Temp 99.2 F 11/08/18 04:00 Pulse 62 11/08/18 07:00 Resp 22 11/08/18 07:00 BP 130/64 11/08/18 07:00 Pulse Ox 94 L 11/08/18 06:00 - Labs Result Diagrams: 11/08/18 06:21 11/08/18 06:21 Labs: Laboratory Results - last 24 hr 11/04/18 11/07/18 11/07/18 05:39 11:18 17:40 WBC RBC Hgb Hct MCV MCH MCHC RDW Plt Count MPV Neut % (Auto) Lymph % (Auto) [place] % (Auto) Eos % (Auto) Baso % (Auto) Neut # (Auto) Lymph # (Auto) [place] # (Auto) Eos # (Auto) Baso # (Auto) Puncture Site pCO2 pO2 HCO3 ABG pH ABG Total CO2 ABG O2 Saturation ABG Base Excess Ruiz Test ABG Potassium A-a O2 Difference Respiratory Index Sodium Chloride Glucose Lactate Vent Mode Mechanical Rate FiO2 Tidal Volume Potassium Carbon Dioxide Anion Gap BUN Creatinine Est GFR ( Amer) Est GFR (Non-Af Amer) POC Glucose (mg/dL) 190 H 203 H Random Glucose Calcium Phosphorus Magnesium Total Bilirubin AST ALT Alkaline Phosphatase Total Protein Albumin Globulin Albumin/Globulin Ratio Arterial Blood Potassium Levetiracetam 19.0 11/07/18 11/08/18 11/08/18 23:46 05:15 05:52 WBC RBC Hgb Hct MCV MCH MCHC RDW Plt Count MPV Neut % (Auto) Lymph % (Auto) [place] % (Auto) Eos % (Auto) Baso % (Auto) Neut # (Auto) Lymph # (Auto) [place] # (Auto) Eos # (Auto) Baso # (Auto) Puncture Site L rad pCO2 44 pO2 76 L HCO3 29.4 H ABG pH 7.45 ABG Total CO2 32.0 H ABG O2 Saturation 96.9 ABG Base Excess 5.8 H Ruiz Test Pos ABG Potassium 3.9 A-a O2 Difference 190.0 Respiratory Index 2.5 Sodium 145.0 Chloride 114.0 H Glucose 126 H Lactate 1.6 Vent Mode Prvc Mechanical Rate 20 FiO2 45.0 Tidal Volume 500 Potassium Carbon Dioxide Anion Gap BUN Creatinine Est GFR ( Amer) Est GFR (Non-Af Amer) POC Glucose (mg/dL) 207 H 123 H Random Glucose Calcium Phosphorus Magnesium Total Bilirubin AST ALT Alkaline Phosphatase Total Protein Albumin Globulin Albumin/Globulin Ratio Arterial Blood Potassium 3.9 Levetiracetam 11/08/18 11/08/18 06:21 06:21 WBC 6.9 RBC 3.34 L Hgb 8.5 L Hct 26.8 L MCV 80.4 MCH 25.4 L MCHC 31.6 L RDW 20.2 H Plt Count 133 MPV 9.7 Neut % (Auto) 64.1 Lymph % (Auto) 28.1 [place] % (Auto) 5.3 Eos % (Auto) 2.2 Baso % (Auto) 0.3 Neut # (Auto) 4.5 Lymph # (Auto) 2.0 [place] # (Auto) 0.4 Eos # (Auto) 0.2 Baso # (Auto) 0.0 Puncture Site pCO2 pO2 HCO3 ABG pH ABG Total CO2 ABG O2 Saturation ABG Base Excess Ruiz Test ABG Potassium A-a O2 Difference Respiratory Index Sodium 140 Chloride 107 Glucose Lactate Vent Mode Mechanical Rate FiO2 Tidal Volume Potassium 3.8 Carbon Dioxide 31 H Anion Gap 6 L BUN 23 H Creatinine 0.9 Est GFR ( Amer) > 60 Est GFR (Non-Af Amer) > 60 POC Glucose (mg/dL) Random Glucose 120 H Calcium 7.5 L Phosphorus 2.6 Magnesium 1.8 Total Bilirubin 0.1 L AST 29 ALT 19 L D Alkaline Phosphatase 171 H Total Protein 5.8 L Albumin 2.1 L Globulin 3.7 Albumin/Globulin Ratio 0.6 L Arterial Blood Potassium Levetiracetam Assessment & Plan (1) Endocarditis Assessment and Plan: Based on the clinical presentation and history and echocardiographic findings I do not feel that a transesophageal echocardiogram is recommended at this time I would continue to follow the patient clinically continue antibiotics for possible aspiration pneumonia since we have a source of sepsis I would continue to treat that the thickening on the aortic valve is nonspecific and does not qualify for any source of his underlying septicemia and bacteremia. Status: Acute (2) Aortic valve sclerosis Status: Acute (3) Pneumonia Status: Acute (4) Respiratory failure Status: Acute (5) Sepsis Status: Acute (6) Acute renal insufficiency Status: Acute (7) Acute respiratory failure with hypoxemia Status: Acute (8) Altered mental status Status: Acute
[2018-11-08] MEDS: Lactated Ringer's 1,000 ML IV SCH (07:50)
[2018-11-08] MEDS: levETIRAcetam 100 mg/ml (5ml) Oral Syringe PO SCH ×2 (09:56→17:09)
[2018-11-08] MEDS: Valproic Acid 250 mg/5 ml UD Cup PO SCH ×2 (09:56→17:09)
[2018-11-08] MEDS: Enoxaparin 40 mg Syringe SC SCH (09:56)
--- NOTE | 2018-11-08 09:57 | RAD ---
Date of service: 11/08/2018 HISTORY: intubated COMPARISON: 11/07/2018 FINDINGS: The endotracheal tube terminates 4.5 cm proximal to the pito. The nasogastric tube terminates in the stomach. The right IJV line terminates in the SVC. LUNGS: The lungs are well inflated. There is little interval change in nodular and confluent airspace disease in both lungs, worse in the left perihilar region. Also noted is a background of interstitial thickening. PLEURA: No pleural effusions or pneumothorax. CARDIOVASCULAR: The heart is normal in size. No aortic atherosclerotic calcification present. OSSEOUS STRUCTURES: Within normal limits for the patient's age. VISUALIZED UPPER ABDOMEN: Normal. OTHER FINDINGS: None. IMPRESSION: Little interval change in pulmonary edema versus multifocal pneumonia in the lungs, worse on the left. Background of interstitial thickening which may represent interstitial edema, fibrosis or pneumonitis. Stable position of support line and tubes.
--- NOTE | 2018-11-08 13:12 | CP.PCM.PN ---
Subjective - Date & Time of Evaluation Date of Evaluation: 11/08/18 Time of Evaluation: 11:15 - Subjective Subjective: 63-year-old male with a PMH of paraplegia and respiratory distress presented to the ED via EMS from care home for evaluation for respiratory failure. Unable to obtain 2/2 patient's inability to answer questions. Patient seen and examined at bedside in ICU. Resting comfortably and in no acute distress. ABG 11/08: pCO2 44, pO2 76 L, HCO3 29.4, pH 7.45 CXR 11/08: Little interval change in pulmonary edema versus multifocal pneumonia in the lungs, worse on the left. Background of interstitial thickening which may represent interstitial edema, fibrosis, or pneumonitis. Stable posterior of line and tubes. Daily CXR and ABG. On ventilator, wean as tolerated. Tolerating CPAP with high pressure support. Continue ABX and continue present treatment. Consider tracheostomy. Objective - Vital Signs/Intake and Output Vital Signs (last 24 hours): Temp Pulse Resp BP Pulse Ox 99.6 F 66 20 105/47 L 93 L 11/08/18 12:00 11/08/18 12:13 11/08/18 12:13 11/08/18 12:13 11/08/18 12:13 Intake and Output: 11/08/18 11/08/18 06:59 18:59 Intake Total 1840.8 963.8 Output Total 670 620 Balance 1170.8 343.8 - Medications Medications: Current Medications Enoxaparin Sodium (Lovenox) 40 mg SC DAILY [facility] Last Admin: 11/08/18 09:56 Dose: 40 mg Famotidine (Pepcid) 20 mg IVP Q12 [facility] Last Admin: 11/08/18 09:56 Dose: 20 mg Furosemide (Lasix) 40 mg IVP Q12 [facility] Stop: 11/09/18 22:01 Last Admin: 11/08/18 12:13 Dose: 40 mg Piperacillin Sod/Tazobactam Sod (Zosyn 3.375 Gm Iv Premix) 3.375 gm in 50 mls @ 100 mls/hr IVPB Q8H [facility]; Protocol Last Admin: 11/08/18 09:57 Dose: 100 mls/hr Vancomycin HCl 1 gm/ Sodium (Chloride) 250 mls @ 166.7 mls/hr IVPB Q24H [facility]; Protocol Last Admin: 11/08/18 10:09 Dose: 166.7 mls/hr Voriconazole 100 mg/ Sodium (Chloride) 100 mls @ 100 mls/hr IVPB Q12H [facility] Last Admin: 11/08/18 03:00 Dose: 100 mls/hr Fentanyl Citrate 2,500 mcg/ (Sodium Chloride) 250 mls @ 10.87 mls/hr IV .Q23H [facility]; Protocol Last Admin: 11/07/18 21:00 Dose: Not Given Insulin Human Regular (Novolin R) 0 unit SC Q6H [facility]; Protocol Last Admin: 11/08/18 12:09 Dose: Not Given Levetiracetam (Keppra) 500 mg PO BID [facility] Last Admin: 11/08/18 09:56 Dose: 500 mg Valproate Sodium (Depakene Oral Soln) 250 mg PO BID [facility] Last Admin: 11/08/18 09:56 Dose: 250 mg - Labs Labs: 11/08/18 06:21 11/08/18 06:21 PT 18.1 SECONDS (9.7-12.2) H 11/03/18 16:59 INR 1.7 11/03/18 16:59 APTT 46 SECONDS (21-34) H 11/03/18 16:59
--- NOTE | 2018-11-08 13:26 | CP.CCUPN ---
<Francisca Stanton - Last Filed: 11/08/18 14:28> CCU Subjective - Physician Review Subjective (Free Text): ICU Progress Note for Dr. Gutierrez Patient seen and examined at bedside this morning. Patient resting comfortably in bed, eyes opened but not following commands. Per RN left arm moved and almost hit her. Due to patient condition, ROS unable to be obtained. Per RN no acute overnight events. 11/08/18 13:24 11/08/18 14:15 CCU Objective - Vital Signs / Intake & Output Vital Signs (Last 4 hours): Vital Signs Temp Pulse Resp BP Pulse Ox 11/08/18 12:13 66 20 105/47 L 93 L 11/08/18 12:01 71 20 93/41 L 92 L 11/08/18 12:00 99.6 F 69 20 90 L 11/08/18 11:00 101 H 31 H 125/60 89 L 11/08/18 10:00 82 31 H 111/57 L 92 L Intake and Output (Last 8hrs): Intake & Output 11/07/18 11/08/18 11/08/18 22:59 06:59 14:59 Intake Total 1325.9 1199.2 963.8 Output Total 510 460 620 Balance 815.9 739.2 343.8 Weight 133 lb 6.4 oz Intake: IV 14 16 Intake, IV Amount 861.9 863.2 583.8 Right Distal Port Femoral 27.0 Right Distal Port 16.2 43.2 37.8 Internal Jugular Right Medial Port 18.7 20.0 13.0 Internal Jugular Right Proximal Port 800 800 533 Internal Jugular Tube Feeding 320 320 280 Other 130 100 Output: Urine 510 460 620 Urethral (Nelson) 510 460 620 Oral Regurgitation 0 Other: # Bowel Movements 0 - Physical Exam Head: Positive for: Atraumatic, Normocephalic Extroacular Muscles: Positive for: EOMI Conjunctiva: Positive for: Normal Respiratory/Chest: Positive for: Wheezes (L>R) Cardiovascular: Positive for: Regular Rate and Rhythm Abdomen: Negative for: Tenderness, Distention, Rebound, Guarding Upper Extremity: Positive for: Normal Inspection Lower Extremity: Positive for: Normal Inspection Neurological: Positive for: Other (left leg with sudden kicks) Skin: Positive for: Warm, Dry, Normal Color Psychiatric: Positive for: Alert - Medications Active Medications: Active Medications Generic Name Dose Route Start Last Admin Trade Name Moisesq PRN Reason Stop Dose Admin Enoxaparin Sodium 40 mg 11/04/18 10:00 11/08/18 09:56 Lovenox SC 40 mg DAILY HUMBERTO Administration Famotidine 20 mg 11/03/18 22:00 11/08/18 09:56 Pepcid IVP 20 mg Q12 HUMBERTO Administration Furosemide 40 mg 11/08/18 12:00 11/08/18 12:13 Lasix IVP 11/09/18 22:01 40 mg Q12 HUMBERTO Administration Piperacillin Sod/Tazobactam Sod 3.375 gm in 50 mls @ 100 mls/hr 11/04/18 01:30 11/08/18 09:57 Zosyn 3.375 Gm Iv Premix IVPB 100 mls/hr Q8H HUMBERTO Administration Protocol Vancomycin HCl 1 gm/ Sodium 250 mls @ 166.7 mls/hr 11/05/18 10:00 11/08/18 10:09 Chloride IVPB 166.7 mls/hr Q24H HUMBERTO Administration Protocol Voriconazole 100 mg/ Sodium 100 mls @ 100 mls/hr 11/06/18 14:00 11/08/18 03:00 Chloride IVPB 100 mls/hr Q12H HUMBERTO Administration Fentanyl Citrate 2,500 mcg/ 250 mls @ 10.87 mls/hr 11/06/18 22:30 11/07/18 21:00 Sodium Chloride IV Not Given .Q23H HUMBERTO Protocol 2 MCG/KG/HR Insulin Human Regular 0 unit 11/04/18 00:00 11/08/18 12:09 Novolin R SC Not Given Q6H HUMBERTO Protocol Levetiracetam 500 mg 11/03/18 21:00 11/08/18 09:56 Keppra PO 500 mg BID HUMBERTO Administration Valproate Sodium 250 mg 11/03/18 21:00 11/08/18 09:56 Depakene Oral Soln PO 250 mg BID HUMBERTO Administration - Patient Studies Lab Studies: Microbiology Studies 11/03/18 16:55 Blood Culture - Preliminary Blood NO GROWTH AFTER 4 DAYS 11/05/18 16:03 Blood Culture - Preliminary Blood-Thru Central Line NO GROWTH AFTER 48 HOURS 11/05/18 16:03 Blood Culture - Preliminary Blood-Thru Central Line NO GROWTH AFTER 48 HOURS 11/04/18 07:59 Gram Stain - Final Trachasp Sputum Culture - Final Staphylococcus Aureus Lab Studies 11/08/18 11/08/18 11/08/18 Range/Units 11:34 09:28 06:21 WBC (4.8-10.8) K/uL RBC (4.40-5.90) Mil/uL Hgb (12.0-18.0) g/dL Hct (35.0-51.0) % MCV (80.0-94.0) fL MCH (27.0-31.0) pg MCHC (33.0-37.0) g/dL RDW (11.5-14.5) % Plt Count (130-400) K/uL MPV (7.2-11.7) fL Neut % (Auto) (50.0-75.0) % Lymph % (Auto) (20.0-40.0) % [place] % (Auto) (0.0-10.0) % Eos % (Auto) (0.0-4.0) % Baso % (Auto) (0.0-2.0) % Neut # (Auto) (1.8-7.0) K/uL Lymph # (Auto) (1.0-4.3) K/uL [place] # (Auto) (0.0-0.8) K/uL Eos # (Auto) (0.0-0.7) K/uL Baso # (Auto) (0.0-0.2) K/uL Puncture Site pCO2 (35-45) mm/Hg pO2 (80-100) mm/Hg HCO3 (21-28) mmol/L ABG pH (7.35-7.45) ABG Total CO2 (22-28) mmol/L ABG O2 Saturation (95-98) % ABG Base Excess (-2.0-3.0) mmol/L Ruiz Test ABG Potassium (3.6-5.2) mmol/L A-a O2 Difference mm/Hg Respiratory Index Sodium 140 (132-148) mmol/l Chloride 107 (98-107) mmol/L Glucose (75-110) mg/dl Lactate (0.7-2.1) mmol/L Vent Mode Mechanical Rate FiO2 % Tidal Volume Potassium 3.8 (3.6-5.2) mmol/L Carbon Dioxide 31 H (22-30) mmol/L Anion Gap 6 L (10-20) BUN 23 H (9-20) mg/dL Creatinine 0.9 (0.8-1.5) mg/dL Est GFR ( Amer) > 60 Est GFR (Non-Af Amer) > 60 POC Glucose (mg/dL) 131 H (65-110) mg/dL Random Glucose 120 H (75-110) mg/dL Calcium 7.5 L (8.6-10.4) mg/dl Phosphorus 2.6 (2.5-4.5) mg/dL Magnesium 1.8 (1.6-2.3) mg/dL Total Bilirubin 0.1 L (0.2-1.3) mg/dL AST 29 (17-59) U/L ALT 19 L D (21-72) U/L Alkaline Phosphatase 171 H (38-126) U/L Total Protein 5.8 L (6.3-8.3) g/dL Albumin 2.1 L (3.5-5.0) g/dL Globulin 3.7 (2.2-3.9) gm/dL Albumin/Globulin Ratio 0.6 L (1.0-2.1) Arterial Blood Potassium (3.6-5.2) mmol/L Vancomycin Trough 9.4 (5.0-10.0) ug/mL Levetiracetam mcg/mL 11/08/18 11/08/18 11/08/18 Range/Units 06:21 05:52 05:15 WBC 6.9 (4.8-10.8) K/uL RBC 3.34 L (4.40-5.90) Mil/uL Hgb 8.5 L (12.0-18.0) g/dL Hct 26.8 L (35.0-51.0) % MCV 80.4 (80.0-94.0) fL MCH 25.4 L (27.0-31.0) pg MCHC 31.6 L (33.0-37.0) g/dL RDW 20.2 H (11.5-14.5) % Plt Count 133 (130-400) K/uL MPV 9.7 (7.2-11.7) fL Neut % (Auto) 64.1 (50.0-75.0) % Lymph % (Auto) 28.1 (20.0-40.0) % [place] % (Auto) 5.3 (0.0-10.0) % Eos % (Auto) 2.2 (0.0-4.0) % Baso % (Auto) 0.3 (0.0-2.0) % Neut # (Auto) 4.5 (1.8-7.0) K/uL Lymph # (Auto) 2.0 (1.0-4.3) K/uL [place] # (Auto) 0.4 (0.0-0.8) K/uL Eos # (Auto) 0.2 (0.0-0.7) K/uL Baso # (Auto) 0.0 (0.0-0.2) K/uL Puncture Site L rad pCO2 44 (35-45) mm/Hg pO2 76 L (80-100) mm/Hg HCO3 29.4 H (21-28) mmol/L ABG pH 7.45 (7.35-7.45) ABG Total CO2 32.0 H (22-28) mmol/L ABG O2 Saturation 96.9 (95-98) % ABG Base Excess 5.8 H (-2.0-3.0) mmol/L Ruiz Test Pos ABG Potassium 3.9 (3.6-5.2) mmol/L A-a O2 Difference 190.0 mm/Hg Respiratory Index 2.5 Sodium 145.0 (132-148) mmol/l Chloride 114.0 H (98-107) mmol/L Glucose 126 H (75-110) mg/dl Lactate 1.6 (0.7-2.1) mmol/L Vent Mode Prvc Mechanical Rate 20 FiO2 45.0 % Tidal Volume 500 Potassium (3.6-5.2) mmol/L Carbon Dioxide (22-30) mmol/L Anion Gap (10-20) BUN (9-20) mg/dL Creatinine (0.8-1.5) mg/dL Est GFR ( Amer) Est GFR (Non-Af Amer) POC Glucose (mg/dL) 123 H (65-110) mg/dL Random Glucose (75-110) mg/dL Calcium (8.6-10.4) mg/dl Phosphorus (2.5-4.5) mg/dL Magnesium (1.6-2.3) mg/dL Total Bilirubin (0.2-1.3) mg/dL AST (17-59) U/L ALT (21-72) U/L Alkaline Phosphatase (38-126) U/L Total Protein (6.3-8.3) g/dL Albumin (3.5-5.0) g/dL Globulin (2.2-3.9) gm/dL Albumin/Globulin Ratio (1.0-2.1) Arterial Blood Potassium 3.9 (3.6-5.2) mmol/L Vancomycin Trough (5.0-10.0) ug/mL Levetiracetam mcg/mL 11/07/18 11/07/18 11/04/18 Range/Units 23:46 17:40 05:39 WBC (4.8-10.8) K/uL RBC (4.40-5.90) Mil/uL Hgb (12.0-18.0) g/dL Hct (35.0-51.0) % MCV (80.0-94.0) fL MCH (27.0-31.0) pg MCHC (33.0-37.0) g/dL RDW (11.5-14.5) % Plt Count (130-400) K/uL MPV (7.2-11.7) fL Neut % (Auto) (50.0-75.0) % Lymph % (Auto) (20.0-40.0) % [place] % (Auto) (0.0-10.0) % Eos % (Auto) (0.0-4.0) % Baso % (Auto) (0.0-2.0) % Neut # (Auto) (1.8-7.0) K/uL Lymph # (Auto) (1.0-4.3) K/uL [place] # (Auto) (0.0-0.8) K/uL Eos # (Auto) (0.0-0.7) K/uL Baso # (Auto) (0.0-0.2) K/uL Puncture Site pCO2 (35-45) mm/Hg pO2 (80-100) mm/Hg HCO3 (21-28) mmol/L ABG pH (7.35-7.45) ABG Total CO2 (22-28) mmol/L ABG O2 Saturation (95-98) % ABG Base Excess (-2.0-3.0) mmol/L Ruiz Test ABG Potassium (3.6-5.2) mmol/L A-a O2 Difference mm/Hg Respiratory Index Sodium (132-148) mmol/l Chloride (98-107) mmol/L Glucose (75-110) mg/dl Lactate (0.7-2.1) mmol/L Vent Mode Mechanical Rate FiO2 % Tidal Volume Potassium (3.6-5.2) mmol/L Carbon Dioxide (22-30) mmol/L Anion Gap (10-20) BUN (9-20) mg/dL Creatinine (0.8-1.5) mg/dL Est GFR ( Amer) Est GFR (Non-Af Amer) POC Glucose (mg/dL) 207 H 203 H (65-110) mg/dL Random Glucose (75-110) mg/dL Calcium (8.6-10.4) mg/dl Phosphorus (2.5-4.5) mg/dL Magnesium (1.6-2.3) mg/dL Total Bilirubin (0.2-1.3) mg/dL AST (17-59) U/L ALT (21-72) U/L Alkaline Phosphatase (38-126) U/L Total Protein (6.3-8.3) g/dL Albumin (3.5-5.0) g/dL Globulin (2.2-3.9) gm/dL Albumin/Globulin Ratio (1.0-2.1) Arterial Blood Potassium (3.6-5.2) mmol/L Vancomycin Trough (5.0-10.0) ug/mL Levetiracetam 19.0 mcg/mL Laboratory Results - last 24 hr 11/04/18 11/07/18 11/07/18 05:39 17:40 23:46 WBC RBC Hgb Hct MCV MCH MCHC RDW Plt Count MPV Neut % (Auto) Lymph % (Auto) [place] % (Auto) Eos % (Auto) Baso % (Auto) Neut # (Auto) Lymph # (Auto) [place] # (Auto) Eos # (Auto) Baso # (Auto) Puncture Site pCO2 pO2 HCO3 ABG pH ABG Total CO2 ABG O2 Saturation ABG Base Excess Ruiz Test ABG Potassium A-a O2 Difference Respiratory Index Sodium Chloride Glucose Lactate Vent Mode Mechanical Rate FiO2 Tidal Volume Potassium Carbon Dioxide Anion Gap BUN Creatinine Est GFR ( Amer) Est GFR (Non-Af Amer) POC Glucose (mg/dL) 203 H 207 H Random Glucose Calcium Phosphorus Magnesium Total Bilirubin AST ALT Alkaline Phosphatase Total Protein Albumin Globulin Albumin/Globulin Ratio Arterial Blood Potassium Vancomycin Trough Levetiracetam 19.0 11/08/18 11/08/18 11/08/18 05:15 05:52 06:21 WBC 6.9 RBC 3.34 L Hgb 8.5 L Hct 26.8 L MCV 80.4 MCH 25.4 L MCHC 31.6 L RDW 20.2 H Plt Count 133 MPV 9.7 Neut % (Auto) 64.1 Lymph % (Auto) 28.1 [place] % (Auto) 5.3 Eos % (Auto) 2.2 Baso % (Auto) 0.3 Neut # (Auto) 4.5 Lymph # (Auto) 2.0 [place] # (Auto) 0.4 Eos # (Auto) 0.2 Baso # (Auto) 0.0 Puncture Site L rad pCO2 44 pO2 76 L HCO3 29.4 H ABG pH 7.45 ABG Total CO2 32.0 H ABG O2 Saturation 96.9 ABG Base Excess 5.8 H Ruiz Test Pos ABG Potassium 3.9 A-a O2 Difference 190.0 Respiratory Index 2.5 Sodium 145.0 Chloride 114.0 H Glucose 126 H Lactate 1.6 Vent Mode Prvc Mechanical Rate 20 FiO2 45.0 Tidal Volume 500 Potassium Carbon Dioxide Anion Gap BUN Creatinine Est GFR ( Amer) Est GFR (Non-Af Amer) POC Glucose (mg/dL) 123 H Random Glucose Calcium Phosphorus Magnesium Total Bilirubin AST ALT Alkaline Phosphatase Total Protein Albumin Globulin Albumin/Globulin Ratio Arterial Blood Potassium 3.9 Vancomycin Trough Levetiracetam 11/08/18 11/08/18 11/08/18 06:21 09:28 11:34 WBC RBC Hgb Hct MCV MCH MCHC RDW Plt Count MPV Neut % (Auto) Lymph % (Auto) [place] % (Auto) Eos % (Auto) Baso % (Auto) Neut # (Auto) Lymph # (Auto) [place] # (Auto) Eos # (Auto) Baso # (Auto) Puncture Site pCO2 pO2 HCO3 ABG pH ABG Total CO2 ABG O2 Saturation ABG Base Excess Ruiz Test ABG Potassium A-a O2 Difference Respiratory Index Sodium 140 Chloride 107 Glucose Lactate Vent Mode Mechanical Rate FiO2 Tidal Volume Potassium 3.8 Carbon Dioxide 31 H Anion Gap 6 L BUN 23 H Creatinine 0.9 Est GFR ( Amer) > 60 Est GFR (Non-Af Amer) > 60 POC Glucose (mg/dL) 131 H Random Glucose 120 H Calcium 7.5 L Phosphorus 2.6 Magnesium 1.8 Total Bilirubin 0.1 L AST 29 ALT 19 L D Alkaline Phosphatase 171 H Total Protein 5.8 L Albumin 2.1 L Globulin 3.7 Albumin/Globulin Ratio 0.6 L Arterial Blood Potassium Vancomycin Trough 9.4 Levetiracetam Radiology Impressions: Radiology Impressions Chest X-Ray 11/08/18 04:00 IMPRESSION: Little interval change in pulmonary edema versus multifocal pneumonia in the lungs, worse on the left. Background of interstitial thickening which may represent interstitial edema, fibrosis or pneumonitis. Stable position of support line and tubes. Fingerstick Blood Sugar Results: 131 Assessment/Plan - Assessment and Plan (Free Text) Assessment: 63 y/o male with multiple medical problems including PMHx of seizures, DM, CVA, and dementia with respiratory failure. Neuro -seizures: continue with keppra and valproate -history of CVA, paraplegia, and dementia -d/eleno precedex 11/08 CV -ECHO completed 11/05. Shows thickened aortic valve compared to 12/06. ID, Dr. Fine, recs cardiology consult to r/o endocarditis and OLEG. -cardiology, Dr. Anderson, consult ordered - Dr. Omar Urbina's internet systems administrator preference -OLEG ordered Pulm -admitted with hypercapnic respiratory failure -daily CXR and ABG -Tolerated approx 3 hours of CPAP, but now back to PRVC 500/50/20/5 -> 500/45/20/5 by RT, the former was previous settings (decreased FiO2 slightly now). Continue to wean. GI -no active issues Renal -renal insufficiency -IVF - LR at 100 mL/hr ID -CXR: bilateral pulmonary infiltrates, hx aspiration PNA -monitor VS and mental status - patient hemodynamically stable currently -IVF - LR at 100 mL/hr -zosyn started 11/04 -vanc started 10am on 11/05 -vanc trough ordered for 11/08 at 9:30am (30 min before 4th dose) -voriconazole given due to past cx positive for asperigillosis -11/05: final blood culture - s. aureus and coagulase negative staph -ID, Dr. Fine, following. Appreciate recs. Endo -DM: ISS, hypoglycemia protocol Heme -anemia -f/u H/H daily Derm -personal injury attorney recs: prevalon boots, cavilon skin prep, frequent repositioning ppx: DVT: lovenox 40 mg sc daily GI: pepcid 20 mg IV q12h diet: orogastric tube feeding, glucerna case discussed with Dr. Matt Stanton PGY1 <Manish Gutierrez - Last Filed: 11/08/18 17:53> CCU Objective - Vital Signs / Intake & Output Vital Signs (Last 4 hours): Vital Signs Temp Pulse Resp BP Pulse Ox 11/08/18 16:00 98.6 F 78 21 125/59 L 11/08/18 15:00 76 21 112/55 L 11/08/18 14:00 75 20 116/53 L 95 Intake and Output (Last 8hrs): Intake & Output 11/08/18 11/08/18 11/08/18 06:59 14:59 22:59 Intake Total 1199.2 1109.2 45.4 Output Total 460 1120 500 Balance 739.2 -10.8 -454.6 Weight 133 lb 6.4 oz Intake: IV 16 Intake, IV Amount 863.2 689.2 5.4 Right Distal Port 43.2 43.2 5.4 Internal Jugular Right Medial Port 20.0 13.0 Internal Jugular Right Proximal Port 800 633 Internal Jugular Tube Feeding 320 320 40 Other 100 Output: Urine 460 1120 500 Urethral (Nelson) 460 1120 500 Oral Regurgitation 0 Other: # Bowel Movements 0 0 - Medications Active Medications: Active Medications Generic Name Dose Route Start Last Admin Trade Name Freq PRN Reason Stop Dose Admin Enoxaparin Sodium 40 mg 11/04/18 10:00 11/08/18 09:56 Lovenox SC 40 mg DAILY HUMBERTO Administration Famotidine 20 mg 11/03/18 22:00 11/08/18 09:56 Pepcid IVP 20 mg Q12 HUMBERTO Administration Furosemide 40 mg 11/08/18 12:00 11/08/18 12:13 Lasix IVP 11/09/18 22:01 40 mg Q12 HUMBERTO Administration Piperacillin Sod/Tazobactam Sod 3.375 gm in 50 mls @ 100 mls/hr 11/04/18 01:30 11/08/18 17:09 Zosyn 3.375 Gm Iv Premix IVPB 100 mls/hr Q8H HUMBERTO Administration Protocol Voriconazole 100 mg/ Sodium 100 mls @ 100 mls/hr 11/06/18 14:00 11/08/18 14:49 Chloride IVPB 100 mls/hr Q12H HUMBERTO Administration Fentanyl Citrate 2,500 mcg/ 250 mls @ 10.87 mls/hr 11/06/18 22:30 11/07/18 21:00 Sodium Chloride IV Not Given .Q23H HUMBERTO Protocol 2 MCG/KG/HR Vancomycin HCl 1.25 gm/ Sodium 250 mls @ 120 mls/hr 11/09/18 10:00 Chloride IVPB Q24H [facility] Protocol Insulin Human Regular 0 unit 11/04/18 00:00 11/08/18 12:09 Novolin R SC Not Given Q6H HUMBERTO Protocol Levetiracetam 500 mg 11/03/18 21:00 11/08/18 17:09 Keppra PO 500 mg BID HUMBERTO Administration Valproate Sodium 250 mg 11/03/18 21:00 11/08/18 17:09 Depakene Oral Soln PO 250 mg BID HUMBERTO Administration - Patient Studies Lab Studies: Microbiology Studies 11/03/18 16:55 Blood Culture - Final Blood NO GROWTH AFTER 5 DAYS Gram Stain - Final TEST NOT PERFORMED 11/05/18 16:03 Blood Culture - Preliminary Blood-Thru Central Line NO GROWTH AFTER 3 DAYS 11/05/18 16:03 Blood Culture - Preliminary Blood-Thru Central Line NO GROWTH AFTER 3 DAYS Lab Studies 11/08/18 11/08/18 11/08/18 Range/Units 17:37 11:34 09:28 WBC (4.8-10.8) K/uL RBC (4.40-5.90) Mil/uL Hgb (12.0-18.0) g/dL Hct (35.0-51.0) % MCV (80.0-94.0) fL MCH (27.0-31.0) pg MCHC (33.0-37.0) g/dL RDW (11.5-14.5) % Plt Count (130-400) K/uL MPV (7.2-11.7) fL Neut % (Auto) (50.0-75.0) % Lymph % (Auto) (20.0-40.0) % [place] % (Auto) (0.0-10.0) % Eos % (Auto) (0.0-4.0) % Baso % (Auto) (0.0-2.0) % Neut # (Auto) (1.8-7.0) K/uL Lymph # (Auto) (1.0-4.3) K/uL [place] # (Auto) (0.0-0.8) K/uL Eos # (Auto) (0.0-0.7) K/uL Baso # (Auto) (0.0-0.2) K/uL Puncture Site pCO2 (35-45) mm/Hg pO2 (80-100) mm/Hg HCO3 (21-28) mmol/L ABG pH (7.35-7.45) ABG Total CO2 (22-28) mmol/L ABG O2 Saturation (95-98) % ABG Base Excess (-2.0-3.0) mmol/L Ruiz Test ABG Potassium (3.6-5.2) mmol/L A-a O2 Difference mm/Hg Respiratory Index Sodium (132-148) mmol/l Chloride (98-107) mmol/L Glucose (75-110) mg/dl Lactate (0.7-2.1) mmol/L Vent Mode Mechanical Rate FiO2 % Tidal Volume Potassium (3.6-5.2) mmol/L Carbon Dioxide (22-30) mmol/L Anion Gap (10-20) BUN (9-20) mg/dL Creatinine (0.8-1.5) mg/dL Est GFR ( Amer) Est GFR (Non-Af Amer) POC Glucose (mg/dL) 201 H 131 H (65-110) mg/dL Random Glucose (75-110) mg/dL Calcium (8.6-10.4) mg/dl Phosphorus (2.5-4.5) mg/dL Magnesium (1.6-2.3) mg/dL Total Bilirubin (0.2-1.3) mg/dL AST (17-59) U/L ALT (21-72) U/L Alkaline Phosphatase (38-126) U/L Total Protein (6.3-8.3) g/dL Albumin (3.5-5.0) g/dL Globulin (2.2-3.9) gm/dL Albumin/Globulin Ratio (1.0-2.1) Arterial Blood Potassium (3.6-5.2) mmol/L Vancomycin Trough 9.4 (5.0-10.0) ug/mL 11/08/18 11/08/18 11/08/18 Range/Units 06:21 06:21 05:52 WBC 6.9 (4.8-10.8) K/uL RBC 3.34 L (4.40-5.90) Mil/uL Hgb 8.5 L (12.0-18.0) g/dL Hct 26.8 L (35.0-51.0) % MCV 80.4 (80.0-94.0) fL MCH 25.4 L (27.0-31.0) pg MCHC 31.6 L (33.0-37.0) g/dL RDW 20.2 H (11.5-14.5) % Plt Count 133 (130-400) K/uL MPV 9.7 (7.2-11.7) fL Neut % (Auto) 64.1 (50.0-75.0) % Lymph % (Auto) 28.1 (20.0-40.0) % [place] % (Auto) 5.3 (0.0-10.0) % Eos % (Auto) 2.2 (0.0-4.0) % Baso % (Auto) 0.3 (0.0-2.0) % Neut # (Auto) 4.5 (1.8-7.0) K/uL Lymph # (Auto) 2.0 (1.0-4.3) K/uL [place] # (Auto) 0.4 (0.0-0.8) K/uL Eos # (Auto) 0.2 (0.0-0.7) K/uL Baso # (Auto) 0.0 (0.0-0.2) K/uL Puncture Site pCO2 (35-45) mm/Hg pO2 (80-100) mm/Hg HCO3 (21-28) mmol/L ABG pH (7.35-7.45) ABG Total CO2 (22-28) mmol/L ABG O2 Saturation (95-98) % ABG Base Excess (-2.0-3.0) mmol/L Ruiz Test ABG Potassium (3.6-5.2) mmol/L A-a O2 Difference mm/Hg Respiratory Index Sodium 140 (132-148) mmol/l Chloride 107 (98-107) mmol/L Glucose (75-110) mg/dl Lactate (0.7-2.1) mmol/L Vent Mode Mechanical Rate FiO2 % Tidal Volume Potassium 3.8 (3.6-5.2) mmol/L Carbon Dioxide 31 H (22-30) mmol/L Anion Gap 6 L (10-20) BUN 23 H (9-20) mg/dL Creatinine 0.9 (0.8-1.5) mg/dL Est GFR ( Amer) > 60 Est GFR (Non-Af Amer) > 60 POC Glucose (mg/dL) 123 H (65-110) mg/dL Random Glucose 120 H (75-110) mg/dL Calcium 7.5 L (8.6-10.4) mg/dl Phosphorus 2.6 (2.5-4.5) mg/dL Magnesium 1.8 (1.6-2.3) mg/dL Total Bilirubin 0.1 L (0.2-1.3) mg/dL AST 29 (17-59) U/L ALT 19 L D (21-72) U/L Alkaline Phosphatase 171 H (38-126) U/L Total Protein 5.8 L (6.3-8.3) g/dL Albumin 2.1 L (3.5-5.0) g/dL Globulin 3.7 (2.2-3.9) gm/dL Albumin/Globulin Ratio 0.6 L (1.0-2.1) Arterial Blood Potassium (3.6-5.2) mmol/L Vancomycin Trough (5.0-10.0) ug/mL 11/08/18 11/07/18 Range/Units 05:15 23:46 WBC (4.8-10.8) K/uL RBC (4.40-5.90) Mil/uL Hgb (12.0-18.0) g/dL Hct (35.0-51.0) % MCV (80.0-94.0) fL MCH (27.0-31.0) pg MCHC (33.0-37.0) g/dL RDW (11.5-14.5) % Plt Count (130-400) K/uL MPV (7.2-11.7) fL Neut % (Auto) (50.0-75.0) % Lymph % (Auto) (20.0-40.0) % [place] % (Auto) (0.0-10.0) % Eos % (Auto) (0.0-4.0) % Baso % (Auto) (0.0-2.0) % Neut # (Auto) (1.8-7.0) K/uL Lymph # (Auto) (1.0-4.3) K/uL [place] # (Auto) (0.0-0.8) K/uL Eos # (Auto) (0.0-0.7) K/uL Baso # (Auto) (0.0-0.2) K/uL Puncture Site L rad pCO2 44 (35-45) mm/Hg pO2 76 L (80-100) mm/Hg HCO3 29.4 H (21-28) mmol/L ABG pH 7.45 (7.35-7.45) ABG Total CO2 32.0 H (22-28) mmol/L ABG O2 Saturation 96.9 (95-98) % ABG Base Excess 5.8 H (-2.0-3.0) mmol/L Ruiz Test Pos ABG Potassium 3.9 (3.6-5.2) mmol/L A-a O2 Difference 190.0 mm/Hg Respiratory Index 2.5 Sodium 145.0 (132-148) mmol/l Chloride 114.0 H (98-107) mmol/L Glucose 126 H (75-110) mg/dl Lactate 1.6 (0.7-2.1) mmol/L Vent Mode Prvc Mechanical Rate 20 FiO2 45.0 % Tidal Volume 500 Potassium (3.6-5.2) mmol/L Carbon Dioxide (22-30) mmol/L Anion Gap (10-20) BUN (9-20) mg/dL Creatinine (0.8-1.5) mg/dL Est GFR ( Amer) Est GFR (Non-Af Amer) POC Glucose (mg/dL) 207 H (65-110) mg/dL Random Glucose (75-110) mg/dL Calcium (8.6-10.4) mg/dl Phosphorus (2.5-4.5) mg/dL Magnesium (1.6-2.3) mg/dL Total Bilirubin (0.2-1.3) mg/dL AST (17-59) U/L ALT (21-72) U/L Alkaline Phosphatase (38-126) U/L Total Protein (6.3-8.3) g/dL Albumin (3.5-5.0) g/dL Globulin (2.2-3.9) gm/dL Albumin/Globulin Ratio (1.0-2.1) Arterial Blood Potassium 3.9 (3.6-5.2) mmol/L Vancomycin Trough (5.0-10.0) ug/mL Laboratory Results - last 24 hr 11/07/18 11/08/18 11/08/18 23:46 05:15 05:52 WBC RBC Hgb Hct MCV MCH MCHC RDW Plt Count MPV Neut % (Auto) Lymph % (Auto) [place] % (Auto) Eos % (Auto) Baso % (Auto) Neut # (Auto) Lymph # (Auto) [place] # (Auto) Eos # (Auto) Baso # (Auto) Puncture Site L rad pCO2 44 pO2 76 L HCO3 29.4 H ABG pH 7.45 ABG Total CO2 32.0 H ABG O2 Saturation 96.9 ABG Base Excess 5.8 H Uriz Test Pos ABG Potassium 3.9 A-a O2 Difference 190.0 Respiratory Index 2.5 Sodium 145.0 Chloride 114.0 H Glucose 126 H Lactate 1.6 Vent Mode Prvc Mechanical Rate 20 FiO2 45.0 Tidal Volume 500 Potassium Carbon Dioxide Anion Gap BUN Creatinine Est GFR ( Amer) Est GFR (Non-Af Amer) POC Glucose (mg/dL) 207 H 123 H Random Glucose Calcium Phosphorus Magnesium Total Bilirubin AST ALT Alkaline Phosphatase Total Protein Albumin Globulin Albumin/Globulin Ratio Arterial Blood Potassium 3.9 Vancomycin Trough 11/08/18 11/08/18 11/08/18 06:21 06:21 09:28 WBC 6.9 RBC 3.34 L Hgb 8.5 L Hct 26.8 L MCV 80.4 MCH 25.4 L MCHC 31.6 L RDW 20.2 H Plt Count 133 MPV 9.7 Neut % (Auto) 64.1 Lymph % (Auto) 28.1 [place] % (Auto) 5.3 Eos % (Auto) 2.2 Baso % (Auto) 0.3 Neut # (Auto) 4.5 Lymph # (Auto) 2.0 [place] # (Auto) 0.4 Eos # (Auto) 0.2 Baso # (Auto) 0.0 Puncture Site pCO2 pO2 HCO3 ABG pH ABG Total CO2 ABG O2 Saturation ABG Base Excess Ruiz Test ABG Potassium A-a O2 Difference Respiratory Index Sodium 140 Chloride 107 Glucose Lactate Vent Mode Mechanical Rate FiO2 Tidal Volume Potassium 3.8 Carbon Dioxide 31 H Anion Gap 6 L BUN 23 H Creatinine 0.9 Est GFR ( Amer) > 60 Est GFR (Non-Af Amer) > 60 POC Glucose (mg/dL) Random Glucose 120 H Calcium 7.5 L Phosphorus 2.6 Magnesium 1.8 Total Bilirubin 0.1 L AST 29 ALT 19 L D Alkaline Phosphatase 171 H Total Protein 5.8 L Albumin 2.1 L Globulin 3.7 Albumin/Globulin Ratio 0.6 L Arterial Blood Potassium Vancomycin Trough 9.4 11/08/18 11/08/18 11:34 17:37 WBC RBC Hgb Hct MCV MCH MCHC RDW Plt Count MPV Neut % (Auto) Lymph % (Auto) [place] % (Auto) Eos % (Auto) Baso % (Auto) Neut # (Auto) Lymph # (Auto) [place] # (Auto) Eos # (Auto) Baso # (Auto) Puncture Site pCO2 pO2 HCO3 ABG pH ABG Total CO2 ABG O2 Saturation ABG Base Excess Ruiz Test ABG Potassium A-a O2 Difference Respiratory Index Sodium Chloride Glucose Lactate Vent Mode Mechanical Rate FiO2 Tidal Volume Potassium Carbon Dioxide Anion Gap BUN Creatinine Est GFR ( Amer) Est GFR (Non-Af Amer) POC Glucose (mg/dL) 131 H 201 H Random Glucose Calcium Phosphorus Magnesium Total Bilirubin AST ALT Alkaline Phosphatase Total Protein Albumin Globulin Albumin/Globulin Ratio Arterial Blood Potassium Vancomycin Trough Radiology Impressions: Radiology Impressions Chest X-Ray 11/08/18 04:00 IMPRESSION: Little interval change in pulmonary edema versus multifocal pneumonia in the lungs, worse on the left. Background of interstitial thickening which may represent interstitial edema, fibrosis or pneumonitis. Stable position of support line and tubes. Attending/Attestation - Attestation I have personally seen and examined this patient.: Yes I have fully participated in the care of the patient.: Yes I have reviewed all pertinent clinical information: Yes Notes (Text): 11/08/18 17:50 I have seen and examined the patient. Medical records, lab studies, and imaging were reviewed by me and a management plan was formulated on multidisciplinary rounds with resident Dr. Stanton. I agree with their documented assessment and plan. Patient tolerated PS trial for 3 hours today. Stopped sedation. Still has copious secretions. Patient will most likely never be able to protect his airway and will need a PEG, this will be more palliative than treating. Critical Care Time 35 minutes. Multi-disciplinary rounds were performed with house staff, nursing, speech therapy, respiratory therapy, pharmacy and nutrition with integrated input from the primary team/attending and other consulting services. The documented time is cumulative and includes review of patient data/exams/labs/chart review and examination of the patient on rounds and throughout the day; time is exclusive of any procedures or teaching time.
--- NOTE | 2018-11-08 16:27 | CP.PCM.PN ---
Subjective - Date & Time of Evaluation Date of Evaluation: 11/08/18 Time of Evaluation: 16:15 - Subjective Subjective: dictated Objective - Vital Signs/Intake and Output Vital Signs (last 24 hours): Temp Pulse Resp BP Pulse Ox 98.6 F 78 21 125/59 L 95 11/08/18 16:00 11/08/18 16:00 11/08/18 16:00 11/08/18 16:00 11/08/18 14:00 Intake and Output: 11/08/18 11/08/18 06:59 18:59 Intake Total 1840.8 1154.6 Output Total 670 1620 Balance 1170.8 -465.4 - Medications Medications: Current Medications Enoxaparin Sodium (Lovenox) 40 mg SC DAILY [facility] Last Admin: 11/08/18 09:56 Dose: 40 mg Famotidine (Pepcid) 20 mg IVP Q12 [facility] Last Admin: 11/08/18 09:56 Dose: 20 mg Furosemide (Lasix) 40 mg IVP Q12 [facility] Stop: 11/09/18 22:01 Last Admin: 11/08/18 12:13 Dose: 40 mg Piperacillin Sod/Tazobactam Sod (Zosyn 3.375 Gm Iv Premix) 3.375 gm in 50 mls @ 100 mls/hr IVPB Q8H [facility]; Protocol Last Admin: 11/08/18 09:57 Dose: 100 mls/hr Vancomycin HCl 1 gm/ Sodium (Chloride) 250 mls @ 166.7 mls/hr IVPB Q24H [facility]; Protocol Last Admin: 11/08/18 10:09 Dose: 166.7 mls/hr Voriconazole 100 mg/ Sodium (Chloride) 100 mls @ 100 mls/hr IVPB Q12H [facility] Last Admin: 11/08/18 14:49 Dose: 100 mls/hr Fentanyl Citrate 2,500 mcg/ (Sodium Chloride) 250 mls @ 10.87 mls/hr IV .Q23H [facility]; Protocol Last Admin: 11/07/18 21:00 Dose: Not Given Insulin Human Regular (Novolin R) 0 unit SC Q6H [facility]; Protocol Last Admin: 11/08/18 12:09 Dose: Not Given Levetiracetam (Keppra) 500 mg PO BID [facility] Last Admin: 11/08/18 09:56 Dose: 500 mg Valproate Sodium (Depakene Oral Soln) 250 mg PO BID [facility] Last Admin: 11/08/18 09:56 Dose: 250 mg - Labs Labs: 11/08/18 06:21 11/08/18 06:21 PT 18.1 SECONDS (9.7-12.2) H 11/03/18 16:59 INR 1.7 11/03/18 16:59 APTT 46 SECONDS (21-34) H 11/03/18 16:59
--- NOTE | 2018-11-08 18:17 | CP.PCM.PN ---
Subjective - Date & Time of Evaluation Date of Evaluation: 11/08/18 Time of Evaluation: 10:45 - Subjective Subjective: clinically same Objective - Vital Signs/Intake and Output Vital Signs (last 24 hours): Temp Pulse Resp BP Pulse Ox 98.6 F 70 19 101/49 L 95 11/08/18 16:00 11/08/18 17:00 11/08/18 17:00 11/08/18 17:00 11/08/18 14:00 Intake and Output: 11/08/18 11/08/18 06:59 18:59 Intake Total 1840.8 1345.4 Output Total 670 2200 Balance 1170.8 -854.6 - Medications Medications: Current Medications Enoxaparin Sodium (Lovenox) 40 mg SC DAILY [facility] Last Admin: 11/08/18 09:56 Dose: 40 mg Famotidine (Pepcid) 20 mg IVP Q12 [facility] Last Admin: 11/08/18 09:56 Dose: 20 mg Furosemide (Lasix) 40 mg IVP Q12 [facility] Stop: 11/09/18 22:01 Last Admin: 11/08/18 12:13 Dose: 40 mg Piperacillin Sod/Tazobactam Sod (Zosyn 3.375 Gm Iv Premix) 3.375 gm in 50 mls @ 100 mls/hr IVPB Q8H [facility]; Protocol Last Admin: 11/08/18 17:09 Dose: 100 mls/hr Voriconazole 100 mg/ Sodium (Chloride) 100 mls @ 100 mls/hr IVPB Q12H [facility] Last Admin: 11/08/18 14:49 Dose: 100 mls/hr Fentanyl Citrate 2,500 mcg/ (Sodium Chloride) 250 mls @ 10.87 mls/hr IV .Q23H [facility]; Protocol Last Admin: 11/07/18 21:00 Dose: Not Given Vancomycin HCl 1.25 gm/ Sodium (Chloride) 250 mls @ 120 mls/hr IVPB Q24H [facility]; Protocol Insulin Human Regular (Novolin R) 0 unit SC Q6H [facility]; Protocol Last Admin: 11/08/18 18:02 Dose: 2 units Levetiracetam (Keppra) 500 mg PO BID [facility] Last Admin: 11/08/18 17:09 Dose: 500 mg Valproate Sodium (Depakene Oral Soln) 250 mg PO BID [facility] Last Admin: 11/08/18 17:09 Dose: 250 mg - Labs Labs: 11/08/18 06:21 11/08/18 06:21 PT 18.1 SECONDS (9.7-12.2) H 11/03/18 16:59 INR 1.7 11/03/18 16:59 APTT 46 SECONDS (21-34) H 11/03/18 16:59
--- NOTE | 2018-11-08 23:26 | PQF ---
PROVIDER RESPONSE TEXT: Severe Sepsis REVIEWER QUERY TEXT: Clarification of Clinical Diagnostic Findings Please clarify documentation or clinical relevance for the clinical / diagnostic findings or whether those are insignificant or unable to be further specified. Unable to determine Others The patient's Clinical Indicators include: ?63-year-old male with respiratory failure. Patient was intubated by EMS secondary to respiratory emilie lure. Per EMS, in the [facility] the patient was found by a nurse with shortness of breath and leth argic?. Temp 102.8 F H LABS: WBC: 10.5/11.7/11.6 Procalcitonin: 14.93 - Lactate: 2.3/5.0 Urine Exam Compatible for UTI. H/P: Respiratory Exam: Wheezes L>R wheezes. Rx: Norepinephrine Bitartrate 4 mg/NaCl 254 mls @ 15.24 mls/hr IV .[id number] Piperacillin Sod/Tazobactam Sod 3.375 Gm 50 mls @ 100 mls/hr IVPB Q8H Dexmedetomidine HCl 200 mcg/NaCl 50 mls @ 2.56 mls/hr IV Sepsis documented by ED doctor. Please consider verify and document it, if agree. Please consider verify and document Severe sepsis Query created by: Herb Suarez on 11/04/2018 4:21 PM Electronically signed by: Bahman DUDLEY 11/08/2018 11:23 PM
[2018-11-09] MEDS: (Novolin R) Insulin Human Regular 100 units/ml vial SC SCH ×5 (00:02→23:44)
[2018-11-09] MEDS: Piperacill/Tazo 3.375gm in Dex 3.375 GM/50 ML BAG IVPB SCH (00:58)
[2018-11-09] MEDS: VORICONAZOLE IVPB SCH ×2 (01:00→14:02)
[2018-11-09] MEDS: SODIUM CHLORIDE 0.9% IVPB SCH ×2 (01:00→14:02)
--- NOTE | 2018-11-09 02:25 | PN ---
DATE: 11/08/2018 SUBJECTIVE: The patient was seen in the ICU. His eyes are more open, but he does not follow any commands. He is chewing on the tube, and he has this constant movement of his lower jaw. He may have titubation because of being on antipsychotic medications. The patient does not, however, follow any commands, remains intubated, and they are trying to wean him off, but this will be following. PHYSICAL EXAMINATION: VITAL SIGNS: T-max is 98.7, pulse 63, blood pressure 96/57, and respirations are on the ventilator. GENERAL: Eyes are open. NECK: Supple. LUNGS: Have coarse breath sounds. HEART: S1 and S2, rate is a kind of stable at 64. ABDOMEN: Soft, nontender. No guarding, no rigidity present. EXTREMITIES: Have foot protectors. ASSESSMENT AND PLAN: The patient has pneumonia, and he also has a thickened valve, may have possible endocarditis. 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 One of the blood cultures was coagulase-negative staphylococci, and he did come with a peripherally inserted central catheter line, so I have continued vancomycin. In the pneumonia, he has staphylococcus aureus, but it is methicillin-sensitive, but at this time, I will continue all three medications, and we are waiting for a transesophageal echocardiography if possible to rule out vegetation. Jenna Fine MD MTDAlan
[2018-11-09 04:50] LABS: ARTERIAL BLOOD GAS HCO3 34.1 mmol/L (21-28); ARTERIAL BLOOD GAS O2 SAT 94.5 % (95-98); ARTERIAL BLOOD GAS PCO2 50 mm/Hg (35-45); ARTERIAL BLOOD GAS PH 7.48 (7.35-7.45); ARTERIAL BLOOD GAS PO2 67 mm/Hg (80-100); ARTERIAL BLOOD GAS TCO2 38.7 mmol/L (22-28)
[2018-11-09 06:28] LABS: BASO % 0.3 % (0.0-2.0); EOS # 0.1 K/uL (0.0-0.7); EOS % 1.4 % (0.0-4.0); HEMOGLOBIN 9.5 g/dL (12.0-18.0); LYMPH # 2.8 K/uL (1.0-4.3); LYMPH % 26.5 % (20.0-40.0); MEAN CELL VOLUME 80.3 fL (80.0-94.0); MEAN CORPUSCULAR HEMOGLOBIN 25.2 pg (27.0-31.0); MEAN CORPUSCULAR HGB CONC 31.4 g/dL (33.0-37.0); MEAN PLATELET VOLUME 10.2 fL (7.2-11.7); MONO # 0.6 K/uL (0.0-0.8); MONO % 5.6 % (0.0-10.0); NEUT % 66.2 % (50.0-75.0); RBC 3.78 Mil/uL (4.40-5.90); WHITE BLOOD COUNT 10.6 K/uL (4.8-10.8)
[2018-11-09 06:41] LABS: ALB/GLOB RATIO 0.6 (1.0-2.1); ALBUMIN 2.4 g/dL (3.5-5.0); ALT/SGPT 17 U/L (21-72); AST/SGOT 24 U/L (17-59); BLOOD UREA NITROGEN 22 mg/dL (9-20); CALCIUM 7.7 mg/dl (8.6-10.4); GFR NON-AFRICAN AMERICAN > 60
--- NOTE | 2018-11-09 09:11 | CP.CCUPN ---
CCU Subjective - Physician Review Events Since Last Encounter (Free Text): 11/09/18 09:11 Patient has a history of dementia, bipolar disease, CVA, hypertension diabetes high cholesterol and aspiration pneumonia, he is a 63-year-old male admitted from [facility] following the episode of shortness of breath and lethargic. Patient was intubated in the emergency room. Patient is currently on ventilator. Very poorly responding. Currently on fentanyl drip. FiO2 45% hypoxia noted. Afebrile The last 24 hours On examination vital signs otherwise stable. Blood pressure is 140/74 patient has negative balance now Chest good air entry Regular Hs Abdomen nontender. Edema negative Labs reviewed Renal functions is normal Hemoglobin is 9.5, patient received at least 1 unit of blood transfusion in the past blood cultures and sputum culture showing evidence of Staphylococcus aureus MSSA type but there is also MRSA in the blood noted. Currently patient is on vancomycin Also receiving Vfend 200 mg Assessment and recognition: 63-year-old male with a history of dementia advanced hypertension diabetes high cholesterol paraparesis Admitted to the hospital with the possible aspiration pneumonia staphylococcal infection of the lungs currently being treated with vancomycin optimum at this time. Patient x-ray still showing evidence of worsening pneumonia patient is not a candidate for extubate yet. He may need a tracheostomy and feeding tube will discuss with the family. meanwhile will continue the current treatment. Supportive treatment and will follow the patient CCU Objective - Vital Signs / Intake & Output Vital Signs (Last 4 hours): Vital Signs Temp Pulse Resp BP Pulse Ox 11/09/18 08:00 98.7 F 75 21 140/74 95 11/09/18 07:24 91 H 16 136/68 100 11/09/18 07:00 79 20 105/59 L 11/09/18 06:00 88 23 136/68 93 L Intake and Output (Last 8hrs): Intake & Output 11/08/18 11/09/18 11/09/18 22:59 06:59 14:59 Intake Total 513.2 809.2 45.4 Output Total 1765 1200 200 Balance -1251.8 -390.8 -154.6 Weight 126 lb 1.6 oz Intake: IV 216 Intake, IV Amount 143.2 193.2 5.4 Right Distal Port 43.2 43.2 5.4 Internal Jugular Right Medial Port 150 Internal Jugular Right Proximal Port 100 Internal Jugular Tube Feeding 320 320 40 Other 50 80 Output: Urine 1765 1200 200 Urethral (Nelson) 1765 1200 200 Other: # Bowel Movements 0 - Physical Exam Head: Positive for: Atraumatic, Normocephalic Extroacular Muscles: Positive for: EOMI Conjunctiva: Positive for: Normal Respiratory/Chest: Positive for: Wheezes (L>R) Cardiovascular: Positive for: Regular Rate and Rhythm Abdomen: Negative for: Tenderness, Distention, Rebound, Guarding Upper Extremity: Positive for: Normal Inspection Lower Extremity: Positive for: Normal Inspection Neurological: Positive for: Other (left leg with sudden kicks) Skin: Positive for: Warm, Dry, Normal Color Psychiatric: Positive for: Alert - Medications Active Medications: Active Medications Generic Name Dose Route Start Last Admin Trade Name Freq PRN Reason Stop Dose Admin Enoxaparin Sodium 40 mg 11/04/18 10:00 11/08/18 09:56 Lovenox SC 40 mg DAILY [facility] Administration Famotidine 20 mg 11/03/18 22:00 11/08/18 21:18 Pepcid IVP 20 mg Q12 [facility]UM[facility]ERTO Administration Voriconazole 100 mg/ Sodium 100 mls @ 100 mls/hr 11/06/18 14:00 11/09/18 01:00 Chloride IVPB 100 mls/hr Q12H [facility]ERTO Administration Vancomycin HCl 1.25 gm/ Sodium 250 mls @ 120 mls/hr 11/09/18 10:00 Chloride IVPB Q24H [facility]ERTO Protocol Propofol 1,000 mg in 100 mls @ 1.716 mls/hr 11/09/18 09:06 Diprivan IV .Q24H PRN TITRATE PER MD ORDER Protocol 5 MCG/KG/MIN Insulin Human Regular 0 unit 11/04/18 00:00 11/09/18 07:14 Novolin R SC Not Given Q6H [facility]O Protocol Levetiracetam 500 mg 11/03/18 21:00 11/08/18 17:09 Keppra PO 500 mg BID [facility] Administration Valproate Sodium 250 mg 11/03/18 21:00 11/08/18 17:09 Depakene Oral Soln PO 250 mg BID [facility]O Administration - Patient Studies Lab Studies: Microbiology Studies 11/03/18 16:55 Blood Culture - Final Blood NO GROWTH AFTER 5 DAYS Gram Stain - Final TEST NOT PERFORMED 11/05/18 16:03 Blood Culture - Preliminary Blood-Thru Central Line NO GROWTH AFTER 3 DAYS 11/05/18 16:03 Blood Culture - Preliminary Blood-Thru Central Line NO GROWTH AFTER 3 DAYS Lab Studies 11/09/18 11/09/18 11/09/18 Range/Units 06:36 06:19 06:19 WBC 10.6 D (4.8-10.8) K/uL RBC 3.78 L (4.40-5.90) Mil/uL Hgb 9.5 L (12.0-18.0) g/dL Hct 30.3 L (35.0-51.0) % MCV 80.3 (80.0-94.0) fL MCH 25.2 L (27.0-31.0) pg MCHC 31.4 L (33.0-37.0) g/dL RDW 20.0 H (11.5-14.5) % Plt Count 146 (130-400) K/uL MPV 10.2 (7.2-11.7) fL Neut % (Auto) 66.2 (50.0-75.0) % Lymph % (Auto) 26.5 (20.0-40.0) % [place] % (Auto) 5.6 (0.0-10.0) % Eos % (Auto) 1.4 (0.0-4.0) % Baso % (Auto) 0.3 (0.0-2.0) % Neut # (Auto) 7.0 (1.8-7.0) K/uL Lymph # (Auto) 2.8 (1.0-4.3) K/uL [place] # (Auto) 0.6 (0.0-0.8) K/uL Eos # (Auto) 0.1 (0.0-0.7) K/uL Baso # (Auto) 0.0 (0.0-0.2) K/uL Puncture Site pCO2 (35-45) mm/Hg pO2 (80-100) mm/Hg HCO3 (21-28) mmol/L ABG pH (7.35-7.45) ABG Total CO2 (22-28) mmol/L ABG O2 Saturation (95-98) % ABG Base Excess (-2.0-3.0) mmol/L Ruiz Test ABG Potassium (3.6-5.2) mmol/L A-a O2 Difference mm/Hg Respiratory Index Sodium 139 (132-148) mmol/l Chloride 100 (98-107) mmol/L Glucose (75-110) mg/dl Lactate (0.7-2.1) mmol/L Vent Mode Mechanical Rate FiO2 % Tidal Volume PEEP Potassium 3.9 (3.6-5.2) mmol/L Carbon Dioxide 36 H (22-30) mmol/L Anion Gap 7 L (10-20) BUN 22 H (9-20) mg/dL Creatinine 1.1 (0.8-1.5) mg/dL Est GFR ( Amer) > 60 Est GFR (Non-Af Amer) > 60 POC Glucose (mg/dL) 174 H (65-110) mg/dL Random Glucose 165 H D (75-110) mg/dL Calcium 7.7 L (8.6-10.4) mg/dl Phosphorus 2.9 (2.5-4.5) mg/dL Magnesium 1.9 (1.6-2.3) mg/dL Total Bilirubin 0.2 (0.2-1.3) mg/dL AST 24 (17-59) U/L ALT 17 L (21-72) U/L Alkaline Phosphatase 203 H (38-126) U/L Total Protein 6.5 (6.3-8.3) g/dL Albumin 2.4 L (3.5-5.0) g/dL Globulin 4.2 H (2.2-3.9) gm/dL Albumin/Globulin Ratio 0.6 L (1.0-2.1) Arterial Blood Potassium (3.6-5.2) mmol/L Vancomycin Trough (5.0-10.0) ug/mL 11/09/18 11/08/18 11/08/18 Range/Units 04:35 23:52 17:37 WBC (4.8-10.8) K/uL RBC (4.40-5.90) Mil/uL Hgb (12.0-18.0) g/dL Hct (35.0-51.0) % MCV (80.0-94.0) fL MCH (27.0-31.0) pg MCHC (33.0-37.0) g/dL RDW (11.5-14.5) % Plt Count (130-400) K/uL MPV (7.2-11.7) fL Neut % (Auto) (50.0-75.0) % Lymph % (Auto) (20.0-40.0) % [place] % (Auto) (0.0-10.0) % Eos % (Auto) (0.0-4.0) % Baso % (Auto) (0.0-2.0) % Neut # (Auto) (1.8-7.0) K/uL Lymph # (Auto) (1.0-4.3) K/uL [place] # (Auto) (0.0-0.8) K/uL Eos # (Auto) (0.0-0.7) K/uL Baso # (Auto) (0.0-0.2) K/uL Puncture Site Rb pCO2 50 H (35-45) mm/Hg pO2 67 L (80-100) mm/Hg HCO3 34.1 H (21-28) mmol/L ABG pH 7.48 H (7.35-7.45) ABG Total CO2 38.7 H (22-28) mmol/L ABG O2 Saturation 94.5 L (95-98) % ABG Base Excess 11.8 H (-2.0-3.0) mmol/L Ruiz Test Na ABG Potassium 3.4 L (3.6-5.2) mmol/L A-a O2 Difference 191.0 mm/Hg Respiratory Index 2.9 Sodium 145.0 (132-148) mmol/l Chloride 107.0 (98-107) mmol/L Glucose 169 H (75-110) mg/dl Lactate 1.3 (0.7-2.1) mmol/L Vent Mode Prvc Mechanical Rate 20 FiO2 45.0 % Tidal Volume 500 PEEP 5 Potassium (3.6-5.2) mmol/L Carbon Dioxide (22-30) mmol/L Anion Gap (10-20) BUN (9-20) mg/dL Creatinine (0.8-1.5) mg/dL Est GFR ( Amer) Est GFR (Non-Af Amer) POC Glucose (mg/dL) 122 H 201 H (65-110) mg/dL Random Glucose (75-110) mg/dL Calcium (8.6-10.4) mg/dl Phosphorus (2.5-4.5) mg/dL Magnesium (1.6-2.3) mg/dL Total Bilirubin (0.2-1.3) mg/dL AST (17-59) U/L ALT (21-72) U/L Alkaline Phosphatase (38-126) U/L Total Protein (6.3-8.3) g/dL Albumin (3.5-5.0) g/dL Globulin (2.2-3.9) gm/dL Albumin/Globulin Ratio (1.0-2.1) Arterial Blood Potassium 3.4 L (3.6-5.2) mmol/L Vancomycin Trough (5.0-10.0) ug/mL 11/08/18 11/08/18 Range/Units 11:34 09:28 WBC (4.8-10.8) K/uL RBC (4.40-5.90) Mil/uL Hgb (12.0-18.0) g/dL Hct (35.0-51.0) % MCV (80.0-94.0) fL MCH (27.0-31.0) pg MCHC (33.0-37.0) g/dL RDW (11.5-14.5) % Plt Count (130-400) K/uL MPV (7.2-11.7) fL Neut % (Auto) (50.0-75.0) % Lymph % (Auto) (20.0-40.0) % [place] % (Auto) (0.0-10.0) % Eos % (Auto) (0.0-4.0) % Baso % (Auto) (0.0-2.0) % Neut # (Auto) (1.8-7.0) K/uL Lymph # (Auto) (1.0-4.3) K/uL [place] # (Auto) (0.0-0.8) K/uL Eos # (Auto) (0.0-0.7) K/uL Baso # (Auto) (0.0-0.2) K/uL Puncture Site pCO2 (35-45) mm/Hg pO2 (80-100) mm/Hg HCO3 (21-28) mmol/L ABG pH (7.35-7.45) ABG Total CO2 (22-28) mmol/L ABG O2 Saturation (95-98) % ABG Base Excess (-2.0-3.0) mmol/L Ruiz Test ABG Potassium (3.6-5.2) mmol/L A-a O2 Difference mm/Hg Respiratory Index Sodium (132-148) mmol/l Chloride (98-107) mmol/L Glucose (75-110) mg/dl Lactate (0.7-2.1) mmol/L Vent Mode Mechanical Rate FiO2 % Tidal Volume PEEP Potassium (3.6-5.2) mmol/L Carbon Dioxide (22-30) mmol/L Anion Gap (10-20) BUN (9-20) mg/dL Creatinine (0.8-1.5) mg/dL Est GFR ( Amer) Est GFR (Non-Af Amer) POC Glucose (mg/dL) 131 H (65-110) mg/dL Random Glucose (75-110) mg/dL Calcium (8.6-10.4) mg/dl Phosphorus (2.5-4.5) mg/dL Magnesium (1.6-2.3) mg/dL Total Bilirubin (0.2-1.3) mg/dL AST (17-59) U/L ALT (21-72) U/L Alkaline Phosphatase (38-126) U/L Total Protein (6.3-8.3) g/dL Albumin (3.5-5.0) g/dL Globulin (2.2-3.9) gm/dL Albumin/Globulin Ratio (1.0-2.1) Arterial Blood Potassium (3.6-5.2) mmol/L Vancomycin Trough 9.4 (5.0-10.0) ug/mL Laboratory Results - last 24 hr 11/08/18 11/08/18 11/08/18 09:28 11:34 17:37 WBC RBC Hgb Hct MCV MCH MCHC RDW Plt Count MPV Neut % (Auto) Lymph % (Auto) [place] % (Auto) Eos % (Auto) Baso % (Auto) Neut # (Auto) Lymph # (Auto) [place] # (Auto) Eos # (Auto) Baso # (Auto) Puncture Site pCO2 pO2 HCO3 ABG pH ABG Total CO2 ABG O2 Saturation ABG Base Excess Ruiz Test ABG Potassium A-a O2 Difference Respiratory Index Sodium Chloride Glucose Lactate Vent Mode Mechanical Rate FiO2 Tidal Volume PEEP Potassium Carbon Dioxide Anion Gap BUN Creatinine Est GFR ( Amer) Est GFR (Non-Af Amer) POC Glucose (mg/dL) 131 H 201 H Random Glucose Calcium Phosphorus Magnesium Total Bilirubin AST ALT Alkaline Phosphatase Total Protein Albumin Globulin Albumin/Globulin Ratio Arterial Blood Potassium Vancomycin Trough 9.4 11/08/18 11/09/18 11/09/18 23:52 04:35 06:19 WBC 10.6 D RBC 3.78 L Hgb 9.5 L Hct 30.3 L MCV 80.3 MCH 25.2 L MCHC 31.4 L RDW 20.0 H Plt Count 146 MPV 10.2 Neut % (Auto) 66.2 Lymph % (Auto) 26.5 [place] % (Auto) 5.6 Eos % (Auto) 1.4 Baso % (Auto) 0.3 Neut # (Auto) 7.0 Lymph # (Auto) 2.8 [place] # (Auto) 0.6 Eos # (Auto) 0.1 Baso # (Auto) 0.0 Puncture Site Rb pCO2 50 H pO2 67 L HCO3 34.1 H ABG pH 7.48 H ABG Total CO2 38.7 H ABG O2 Saturation 94.5 L ABG Base Excess 11.8 H Ruiz Test Na ABG Potassium 3.4 L A-a O2 Difference 191.0 Respiratory Index 2.9 Sodium 145.0 Chloride 107.0 Glucose 169 H Lactate 1.3 Vent Mode Prvc Mechanical Rate 20 FiO2 45.0 Tidal Volume 500 PEEP 5 Potassium Carbon Dioxide Anion Gap BUN Creatinine Est GFR ( Amer) Est GFR (Non-Af Amer) POC Glucose (mg/dL) 122 H Random Glucose Calcium Phosphorus Magnesium Total Bilirubin AST ALT Alkaline Phosphatase Total Protein Albumin Globulin Albumin/Globulin Ratio Arterial Blood Potassium 3.4 L Vancomycin Trough 11/09/18 11/09/18 06:19 06:36 WBC RBC Hgb Hct MCV MCH MCHC RDW Plt Count MPV Neut % (Auto) Lymph % (Auto) [place] % (Auto) Eos % (Auto) Baso % (Auto) Neut # (Auto) Lymph # (Auto) [place] # (Auto) Eos # (Auto) Baso # (Auto) Puncture Site pCO2 pO2 HCO3 ABG pH ABG Total CO2 ABG O2 Saturation ABG Base Excess Ruiz Test ABG Potassium A-a O2 Difference Respiratory Index Sodium 139 Chloride 100 Glucose Lactate Vent Mode Mechanical Rate FiO2 Tidal Volume PEEP Potassium 3.9 Carbon Dioxide 36 H Anion Gap 7 L BUN 22 H Creatinine 1.1 Est GFR ( Amer) > 60 Est GFR (Non-Af Amer) > 60 POC Glucose (mg/dL) 174 H Random Glucose 165 H D Calcium 7.7 L Phosphorus 2.9 Magnesium 1.9 Total Bilirubin 0.2 AST 24 ALT 17 L Alkaline Phosphatase 203 H Total Protein 6.5 Albumin 2.4 L Globulin 4.2 H Albumin/Globulin Ratio 0.6 L Arterial Blood Potassium Vancomycin Trough Radiology Impressions: Radiology Impressions Chest X-Ray 11/08/18 04:00 IMPRESSION: Little interval change in pulmonary edema versus multifocal pneumonia in the lungs, worse on the left. Background of interstitial thickening which may represent interstitial edema, fibrosis or pneumonitis. Stable position of support line and tubes. Fingerstick Blood Sugar Results: 174
[2018-11-09] MEDS: Propofol 10 mg/ml 1,000 MG/100 ML VIAL IV PRN ×2 (09:46→23:00)
[2018-11-09] MEDS: Enoxaparin 40 mg Syringe SC SCH (09:49)
[2018-11-09] MEDS: levETIRAcetam 100 mg/ml (5ml) Oral Syringe PO SCH ×2 (09:51→18:03)
[2018-11-09] MEDS: Valproic Acid 250 mg/5 ml UD Cup PO SCH ×2 (09:51→18:03)
--- NOTE | 2018-11-09 10:47 | RAD ---
Date of service: 11/09/2018 HISTORY: intubated COMPARISON: 11/08/2018 FINDINGS: LUNGS: Extensive bilateral diffuse pulmonary opacity, most prominent in the left perihilar region. No significant change. PLEURA: No significant pleural effusion identified, no pneumothorax apparent. CARDIOVASCULAR: No aortic atherosclerotic calcification present. Normal cardiac size. ET tube, NG tube and right IJ central venous catheter are all unchanged. OSSEOUS STRUCTURES: No significant abnormalities. VISUALIZED UPPER ABDOMEN: Normal. OTHER FINDINGS: None. IMPRESSION: Bilateral pulmonary infiltrates, unchanged. Lines and tubes unchanged.
--- NOTE | 2018-11-09 17:46 | CP.PCM.PN ---
Subjective - Date & Time of Evaluation Date of Evaluation: 11/09/18 Time of Evaluation: 16:35 - Subjective Subjective: the patient seen and examined Intubated on ventilatory support Not tolerating weaning Afebrile Continue antibiotics Objective - Vital Signs/Intake and Output Vital Signs (last 24 hours): Temp Pulse Resp BP Pulse Ox 98.3 F 65 20 113/59 L 95 11/09/18 16:00 11/09/18 17:00 11/09/18 17:00 11/09/18 17:00 11/09/18 16:00 Intake and Output: 11/09/18 11/09/18 06:59 18:59 Intake Total 990.8 570.7 Output Total 1665 1136 Balance -674.2 -565.3 - Medications Medications: Current Medications Enoxaparin Sodium (Lovenox) 40 mg SC DAILY [facility] Last Admin: 11/09/18 09:49 Dose: 40 mg Famotidine (Pepcid) 20 mg IVP Q12 [facility]O Last Admin: 11/09/18 09:49 Dose: 20 mg Voriconazole 100 mg/ Sodium (Chloride) 100 mls @ 100 mls/hr IVPB Q12H [facility]UM[facility]O Last Admin: 11/09/18 14:02 Dose: 100 mls/hr Vancomycin HCl 1.25 gm/ Sodium (Chloride) 250 mls @ 120 mls/hr IVPB Q24H [facility]UMBERTO; Protocol Last Admin: 11/09/18 09:47 Dose: 120 mls/hr Propofol (Diprivan) 1,000 mg in 100 mls @ 1.716 mls/hr IV .Q24H PRN; Protocol PRN Reason: TITRATE PER MD ORDER Last Titration: 11/09/18 13:00 Dose: 12.2 mcg/kg/min, 4.187 mls/hr Insulin Human Regular (Novolin R) 0 unit SC Q6H HUMBERTO; Protocol Last Admin: 11/09/18 12:00 Dose: Not Given Levetiracetam (Keppra) 500 mg PO BID [facility] Last Admin: 11/09/18 09:51 Dose: 500 mg Valproate Sodium (Depakene Oral Soln) 250 mg PO BID [facility] Last Admin: 11/09/18 09:51 Dose: 250 mg - Labs Labs: 11/09/18 06:19 11/09/18 06:19 PT 18.1 SECONDS (9.7-12.2) H 11/03/18 16:59 INR 1.7 11/03/18 16:59 APTT 46 SECONDS (21-34) H 11/03/18 16:59 - Head Exam Head Exam: ATRAUMATIC, NORMOCEPHALIC - ENT Exam ENT Exam: Mucous Membranes Moist - Neck Exam Neck Exam: Normal Inspection - Respiratory Exam Respiratory Exam: Decreased Breath Sounds - Cardiovascular Exam Cardiovascular Exam: REGULAR RHYTHM Assessment and Plan (1) Pneumonia Status: Acute (2) Sepsis Status: Acute (3) Acute respiratory failure with hypoxemia Status: Acute
--- NOTE | 2018-11-09 19:59 | CP.PCM.PN ---
Subjective - Date & Time of Evaluation Date of Evaluation: 11/09/18 Time of Evaluation: 18:00 - Subjective Subjective: dictated Objective - Vital Signs/Intake and Output Vital Signs (last 24 hours): Temp Pulse Resp BP Pulse Ox 98.3 F 65 20 113/61 97 11/09/18 16:00 11/09/18 19:00 11/09/18 19:00 11/09/18 19:00 11/09/18 18:01 Intake and Output: 11/09/18 11/10/18 18:59 06:59 Intake Total 784.7 44 Output Total 1204 60 Balance -419.3 -16 - Medications Medications: Current Medications Enoxaparin Sodium (Lovenox) 40 mg SC DAILY [facility] Last Admin: 11/09/18 09:49 Dose: 40 mg Famotidine (Pepcid) 20 mg IVP Q12 [facility] Last Admin: 11/09/18 09:49 Dose: 20 mg Voriconazole 100 mg/ Sodium (Chloride) 100 mls @ 100 mls/hr IVPB Q12H [facility] Last Admin: 11/09/18 14:02 Dose: 100 mls/hr Vancomycin HCl 1.25 gm/ Sodium (Chloride) 250 mls @ 120 mls/hr IVPB Q24H [facility]; Protocol Last Admin: 11/09/18 09:47 Dose: 120 mls/hr Propofol (Diprivan) 1,000 mg in 100 mls @ 1.716 mls/hr IV .Q24H PRN; Protocol PRN Reason: TITRATE PER MD ORDER Last Titration: 11/09/18 13:00 Dose: 12.2 mcg/kg/min, 4.187 mls/hr Insulin Human Regular (Novolin R) 0 unit SC Q6H [facility]; Protocol Last Admin: 11/09/18 18:00 Dose: Not Given Levetiracetam (Keppra) 500 mg PO BID [facility] Last Admin: 11/09/18 18:03 Dose: 500 mg Valproate Sodium (Depakene Oral Soln) 250 mg PO BID [facility] Last Admin: 11/09/18 18:03 Dose: 250 mg - Labs Labs: 11/09/18 06:19 11/09/18 06:19 PT 18.1 SECONDS (9.7-12.2) H 11/03/18 16:59 INR 1.7 11/03/18 16:59 APTT 46 SECONDS (21-34) H 11/03/18 16:59
--- NOTE | 2018-11-09 21:13 | CP.PCM.PN ---
Subjective - Date & Time of Evaluation Date of Evaluation: 11/09/18 Time of Evaluation: 10:30 - Subjective Subjective: clinically same Objective - Vital Signs/Intake and Output Vital Signs (last 24 hours): Temp Pulse Resp BP Pulse Ox 98.4 F 68 20 113/53 L 95 11/09/18 20:00 11/09/18 21:00 11/09/18 21:00 11/09/18 21:00 11/09/18 20:30 Intake and Output: 11/09/18 11/10/18 18:59 06:59 Intake Total 784.7 162 Output Total 1204 125 Balance -419.3 37 - Medications Medications: Current Medications Enoxaparin Sodium (Lovenox) 40 mg SC DAILY REPLACED BY [facility] Last Admin: 11/09/18 09:49 Dose: 40 mg Famotidine (Pepcid) 20 mg IVP Q12 [facility] Last Admin: 11/09/18 09:49 Dose: 20 mg Vancomycin HCl 1.25 gm/ Sodium (Chloride) 250 mls @ 120 mls/hr IVPB Q24H [facility]; Protocol Last Admin: 11/09/18 09:47 Dose: 120 mls/hr Propofol (Diprivan) 1,000 mg in 100 mls @ 1.716 mls/hr IV .Q24H PRN; Protocol PRN Reason: TITRATE PER MD ORDER Last Titration: 11/09/18 13:00 Dose: 12.2 mcg/kg/min, 4.187 mls/hr Piperacillin Sod/Tazobactam (Sod 3.375 gm/ Sodium Chloride) 100 mls @ 200 mls/hr IVPB Q8 [facility]; Protocol Voriconazole 200 mg/ Sodium (Chloride) 100 mls @ 100 mls/hr IVPB Q12H [facility] Insulin Human Regular (Novolin R) 0 unit SC Q6H [facility]; Protocol Last Admin: 11/09/18 18:00 Dose: Not Given Levetiracetam (Keppra) 500 mg PO BID REPLACED BY [facility] Last Admin: 11/09/18 18:03 Dose: 500 mg Valproate Sodium (Depakene Oral Soln) 250 mg PO BID REPLACED BY [facility] Last Admin: 11/09/18 18:03 Dose: 250 mg - Labs Labs: 11/09/18 06:19 11/09/18 06:19 PT 18.1 SECONDS (9.7-12.2) H 11/03/18 16:59 INR 1.7 11/03/18 16:59 APTT 46 SECONDS (21-34) H 11/03/18 16:59
[2018-11-09] MEDS: Piperacillin/Tazobact 3.375 GM in Sodium Chloride 0.9% 100 ML IVPB SCH (22:45)
--- NOTE | 2018-11-10 00:11 | PN ---
DATE: 11/09/2018 INFECTIOUS DISEASE FOLLOWUP SUBJECTIVE: The patient remains intubated. Critical Care's note noted. They were saying that he will end up with trach and he is not . I found his Zosyn has ; I would renew it. The patient has methicillin-sensitive Staph aureus pneumonia and he also has Aspergillus niger. I would also up the dose of VFEND and continue vancomycin for now. One of the blood cultures was positive for GPCs. He is awake. He is looking at me, but he is not . He is on feeding. PHYSICAL EXAMINATION LUNGS: Coarse breath sounds at this time and bilateral occasional rhonchi. HEART: Rate is regular. No murmurs appreciated. ABDOMEN: Soft, nontender. No guarding, no rigidity present. EXTREMITIES: No edema. ASSESSMENT AND PLAN: We will continue IV antibiotics and antifungal. He needs a OLEG to rule out vegetation as he has thickened aortic valve as described on the transthoracic echo. We will follow with the manager of training. He also has dementia, advanced hypertension, diabetes, paraplegia and cholesterol issues. We will try to see if he improves with these antibiotics further. Jenna Fine MD
[2018-11-10] MEDS: Piperacillin/Tazobact 3.375 GM in Sodium Chloride 0.9% 100 ML IVPB SCH ×3 (05:23→21:12)
[2018-11-10] MEDS: (Novolin R) Insulin Human Regular 100 units/ml vial SC SCH ×3 (05:23→18:18)
[2018-11-10 05:25] LABS: ABG ALLEN TEST POS; ARTERIAL BLOOD GAS HCO3 34.1 mmol/L (21-28); ARTERIAL BLOOD GAS PCO2 43 mm/Hg (35-45); ARTERIAL BLOOD GAS PH 7.53 (7.35-7.45); ARTERIAL BLOOD GAS PO2 67 mm/Hg (80-100); ARTERIAL BLOOD GAS TCO2 37.2 mmol/L (22-28)
[2018-11-10 06:23] LABS: BASO % 0.4 % (0.0-2.0); EOS # 0.1 K/uL (0.0-0.7); EOS % 1.5 % (0.0-4.0); HEMOGLOBIN 8.9 g/dL (12.0-18.0); LYMPH # 2.7 K/uL (1.0-4.3); LYMPH % 33.1 % (20.0-40.0); MEAN CELL VOLUME 79.1 fL (80.0-94.0); MEAN CORPUSCULAR HEMOGLOBIN 25.7 pg (27.0-31.0); MEAN CORPUSCULAR HGB CONC 32.5 g/dL (33.0-37.0); MEAN PLATELET VOLUME 9.9 fL (7.2-11.7); MONO # 0.3 K/uL (0.0-0.8); MONO % 4.2 % (0.0-10.0); NEUT % 60.8 % (50.0-75.0); NRBC % 0.1 % (0.0-2.0); RBC 3.47 Mil/uL (4.40-5.90); RED CELL DISTRIBUTION WIDTH 20.4 % (11.5-14.5); WHITE BLOOD COUNT 8.3 K/uL (4.8-10.8)
[2018-11-10 06:39] LABS: ALB/GLOB RATIO 0.5 (1.0-2.1); ALBUMIN 2.2 g/dL (3.5-5.0); ALT/SGPT 15 U/L (21-72); AST/SGOT 20 U/L (17-59); BLOOD UREA NITROGEN 19 mg/dL (9-20); CALCIUM 7.5 mg/dl (8.6-10.4); GFR NON-AFRICAN AMERICAN > 60
--- NOTE | 2018-11-10 08:58 | CP.CCUPN ---
CCU Subjective - Physician Review Events Since Last Encounter (Free Text): 11/10/18 08:56 Patient has a history of dementia, bipolar disease, CVA, hypertension diabetes high cholesterol and aspiration pneumonia, he is a 63-year-old male admitted from retirement following the episode of shortness of breath and lethargic. Patient was intubated in the emergency room. Patient is currently on ventilator. Very poorly responding. on propofol FiO2 45% hypoxia noted. Afebrile The last 24 hours On examination vital signs otherwise stable. Blood pressure is 140/74 patient has negative balance now Chest good air entry Regular Hs Abdomen nontender. Edema negative Labs reviewed Renal functions is normal Hemoglobin is 9.5, patient received at least 1 unit of blood transfusion in the past blood cultures and sputum culture showing evidence of Staphylococcus aureus MSSA type but there is also MRSA in the blood noted. Currently patient is on vancomycin Also receiving Vfend 200 mg Assessment and recognition: 63-year-old male with a history of dementia advanced hypertension diabetes high cholesterol paraparesis Admitted to the hospital with the possible aspiration pneumonia staphylococcal infection of the lungs currently being treated with vancomycin optimum at this time. Patient x-ray still showing evidence of worsening pneumonia patient is not a candidate for extubate yet. He may need a tracheostomy and feeding tube will discuss with the family. meanwhile will continue the current treatment. Supportive treatment and will follow the patient wean as tolerated CCU Objective - Vital Signs / Intake & Output Vital Signs (Last 4 hours): Vital Signs Temp Pulse Resp BP Pulse Ox 11/10/18 08:00 97.4 F L 74 20 116/58 L 94 L 11/10/18 07:00 79 22 122/59 L 94 L 11/10/18 06:05 76 20 94 L 11/10/18 06:00 111/59 L 11/10/18 05:00 79 26 H 130/66 95 Intake and Output (Last 8hrs): Intake & Output 11/09/18 11/10/18 11/10/18 22:59 06:59 14:59 Intake Total 542 536 90 Output Total 588 635 100 Balance -46 -99 -10 Weight 117 lb 4.8 oz Intake: IV 51 Intake, IV Amount 132 135 10 Right Distal Port 100 100 Internal Jugular Right Medial Port 32 35 10 Internal Jugular Tube Feeding 320 320 80 Other 90 30 Output: Urine 588 635 100 Urethral (Nelson) 588 635 100 Other: # Bowel Movements 0 0 - Physical Exam Head: Positive for: Atraumatic, Normocephalic Extroacular Muscles: Positive for: EOMI Conjunctiva: Positive for: Normal Respiratory/Chest: Positive for: Wheezes (L>R) Cardiovascular: Positive for: Regular Rate and Rhythm Abdomen: Negative for: Tenderness, Distention, Rebound, Guarding Upper Extremity: Positive for: Normal Inspection Lower Extremity: Positive for: Normal Inspection Neurological: Positive for: Other (left leg with sudden kicks) Skin: Positive for: Warm, Dry, Normal Color Psychiatric: Positive for: Alert - Medications Active Medications: Active Medications Generic Name Dose Route Start Last Admin Trade Name Freq PRN Reason Stop Dose Admin Enoxaparin Sodium 40 mg 11/04/18 10:00 11/09/18 09:49 Lovenox SC 40 mg DAILY [facility] Administration Famotidine 20 mg 11/03/18 22:00 11/09/18 22:15 Pepcid IVP 20 mg Q12 [facility] Administration Vancomycin HCl 1.25 gm/ Sodium 250 mls @ 120 mls/hr 11/09/18 10:00 11/09/18 09:47 Chloride IVPB 120 mls/hr Q24H [facility] Administration Protocol Propofol 1,000 mg in 100 mls @ 1.716 mls/hr 11/09/18 09:06 11/10/18 04:00 Diprivan IV 15 mcg/kg/min .Q24H PRN 5.148 mls/hr TITRATE PER MD ORDER Titration Protocol 5 MCG/KG/MIN Piperacillin Sod/Tazobactam 100 mls @ 200 mls/hr 11/09/18 22:00 11/10/18 05:23 Sod 3.375 gm/ Sodium Chloride IVPB 200 mls/hr Q8 [facility] Administration Protocol Voriconazole 200 mg/ Sodium 100 mls @ 100 mls/hr 11/10/18 02:00 11/10/18 01:07 Chloride IVPB 100 mls/hr Q12H [facility] Administration Insulin Human Regular 0 unit 11/04/18 00:00 11/10/18 05:23 Novolin R SC Not Given Q6H [facility] Protocol Levetiracetam 500 mg 11/03/18 21:00 11/09/18 18:03 Keppra PO 500 mg BID [facility] Administration Valproate Sodium 250 mg 11/03/18 21:00 11/09/18 18:03 Depakene Oral Soln PO 250 mg BID [facility] Administration - Patient Studies Lab Studies: Microbiology Studies 11/05/18 16:03 Blood Culture - Preliminary Blood-Thru Central Line NO GROWTH AFTER 4 DAYS 11/05/18 16:03 Blood Culture - Preliminary Blood-Thru Central Line NO GROWTH AFTER 4 DAYS Lab Studies 11/10/18 11/10/18 11/10/18 Range/Units 06:10 06:10 05:18 WBC 8.3 (4.8-10.8) K/uL RBC 3.47 L (4.40-5.90) Mil/uL Hgb 8.9 L (12.0-18.0) g/dL Hct 27.4 L (35.0-51.0) % MCV 79.1 L (80.0-94.0) fL MCH 25.7 L (27.0-31.0) pg MCHC 32.5 L (33.0-37.0) g/dL RDW 20.4 H (11.5-14.5) % Plt Count 176 (130-400) K/uL MPV 9.9 (7.2-11.7) fL Neut % (Auto) 60.8 (50.0-75.0) % Lymph % (Auto) 33.1 (20.0-40.0) % [place] % (Auto) 4.2 (0.0-10.0) % Eos % (Auto) 1.5 (0.0-4.0) % Baso % (Auto) 0.4 (0.0-2.0) % Neut # (Auto) 5.0 (1.8-7.0) K/uL Lymph # (Auto) 2.7 (1.0-4.3) K/uL [place] # (Auto) 0.3 (0.0-0.8) K/uL Eos # (Auto) 0.1 (0.0-0.7) K/uL Baso # (Auto) 0.0 (0.0-0.2) K/uL Puncture Site pCO2 (35-45) mm/Hg pO2 (80-100) mm/Hg HCO3 (21-28) mmol/L ABG pH (7.35-7.45) ABG Total CO2 (22-28) mmol/L ABG O2 Saturation (95-98) % ABG Base Excess (-2.0-3.0) mmol/L Ruiz Test ABG Potassium (3.6-5.2) mmol/L A-a O2 Difference mm/Hg Respiratory Index Sodium 138 (132-148) mmol/l Chloride 101 (98-107) mmol/L Glucose (75-110) mg/dl Lactate (0.7-2.1) mmol/L Vent Mode Mechanical Rate FiO2 % Tidal Volume PEEP Potassium 3.5 L (3.6-5.2) mmol/L Carbon Dioxide 35 H (22-30) mmol/L Anion Gap 6 L (10-20) BUN 19 (9-20) mg/dL Creatinine 0.9 (0.8-1.5) mg/dL Est GFR ( Amer) > 60 Est GFR (Non-Af Amer) > 60 POC Glucose (mg/dL) 190 H (65-110) mg/dL Random Glucose 166 H (75-110) mg/dL Calcium 7.5 L (8.6-10.4) mg/dl Phosphorus 2.1 L (2.5-4.5) mg/dL Magnesium 1.9 (1.6-2.3) mg/dL Total Bilirubin 0.2 (0.2-1.3) mg/dL AST 20 (17-59) U/L ALT 15 L (21-72) U/L Alkaline Phosphatase 194 H (38-126) U/L Total Protein 6.4 (6.3-8.3) g/dL Albumin 2.2 L (3.5-5.0) g/dL Globulin 4.2 H (2.2-3.9) gm/dL Albumin/Globulin Ratio 0.5 L (1.0-2.1) Arterial Blood Potassium (3.6-5.2) mmol/L 11/10/18 11/09/18 11/09/18 Range/Units 05:18 23:21 18:07 WBC (4.8-10.8) K/uL RBC (4.40-5.90) Mil/uL Hgb (12.0-18.0) g/dL Hct (35.0-51.0) % MCV (80.0-94.0) fL MCH (27.0-31.0) pg MCHC (33.0-37.0) g/dL RDW (11.5-14.5) % Plt Count (130-400) K/uL MPV (7.2-11.7) fL Neut % (Auto) (50.0-75.0) % Lymph % (Auto) (20.0-40.0) % [place] % (Auto) (0.0-10.0) % Eos % (Auto) (0.0-4.0) % Baso % (Auto) (0.0-2.0) % Neut # (Auto) (1.8-7.0) K/uL Lymph # (Auto) (1.0-4.3) K/uL [place] # (Auto) (0.0-0.8) K/uL Eos # (Auto) (0.0-0.7) K/uL Baso # (Auto) (0.0-0.2) K/uL Puncture Site Rr pCO2 43 (35-45) mm/Hg pO2 67 L (80-100) mm/Hg HCO3 34.1 H (21-28) mmol/L ABG pH 7.53 H (7.35-7.45) ABG Total CO2 37.2 H (22-28) mmol/L ABG O2 Saturation 96.0 (95-98) % ABG Base Excess 11.8 H (-2.0-3.0) mmol/L Ruiz Test Pos ABG Potassium 3.3 L (3.6-5.2) mmol/L A-a O2 Difference 200.0 mm/Hg Respiratory Index 3.0 Sodium 142.0 (132-148) mmol/l Chloride 108.0 H (98-107) mmol/L Glucose 174 H (75-110) mg/dl Lactate 1.3 (0.7-2.1) mmol/L Vent Mode Prvc Mechanical Rate 20 FiO2 45.0 % Tidal Volume 500 PEEP 5 Potassium (3.6-5.2) mmol/L Carbon Dioxide (22-30) mmol/L Anion Gap (10-20) BUN (9-20) mg/dL Creatinine (0.8-1.5) mg/dL Est GFR ( Amer) Est GFR (Non-Af Amer) POC Glucose (mg/dL) 160 H 144 H (65-110) mg/dL Random Glucose (75-110) mg/dL Calcium (8.6-10.4) mg/dl Phosphorus (2.5-4.5) mg/dL Magnesium (1.6-2.3) mg/dL Total Bilirubin (0.2-1.3) mg/dL AST (17-59) U/L ALT (21-72) U/L Alkaline Phosphatase (38-126) U/L Total Protein (6.3-8.3) g/dL Albumin (3.5-5.0) g/dL Globulin (2.2-3.9) gm/dL Albumin/Globulin Ratio (1.0-2.1) Arterial Blood Potassium 3.3 L (3.6-5.2) mmol/L 11/09/18 Range/Units 11:07 WBC (4.8-10.8) K/uL RBC (4.40-5.90) Mil/uL Hgb (12.0-18.0) g/dL Hct (35.0-51.0) % MCV (80.0-94.0) fL MCH (27.0-31.0) pg MCHC (33.0-37.0) g/dL RDW (11.5-14.5) % Plt Count (130-400) K/uL MPV (7.2-11.7) fL Neut % (Auto) (50.0-75.0) % Lymph % (Auto) (20.0-40.0) % [place] % (Auto) (0.0-10.0) % Eos % (Auto) (0.0-4.0) % Baso % (Auto) (0.0-2.0) % Neut # (Auto) (1.8-7.0) K/uL Lymph # (Auto) (1.0-4.3) K/uL [place] # (Auto) (0.0-0.8) K/uL Eos # (Auto) (0.0-0.7) K/uL Baso # (Auto) (0.0-0.2) K/uL Puncture Site pCO2 (35-45) mm/Hg pO2 (80-100) mm/Hg HCO3 (21-28) mmol/L ABG pH (7.35-7.45) ABG Total CO2 (22-28) mmol/L ABG O2 Saturation (95-98) % ABG Base Excess (-2.0-3.0) mmol/L Ruiz Test ABG Potassium (3.6-5.2) mmol/L A-a O2 Difference mm/Hg Respiratory Index Sodium (132-148) mmol/l Chloride (98-107) mmol/L Glucose (75-110) mg/dl Lactate (0.7-2.1) mmol/L Vent Mode Mechanical Rate FiO2 % Tidal Volume PEEP Potassium (3.6-5.2) mmol/L Carbon Dioxide (22-30) mmol/L Anion Gap (10-20) BUN (9-20) mg/dL Creatinine (0.8-1.5) mg/dL Est GFR ( Amer) Est GFR (Non-Af Amer) POC Glucose (mg/dL) 138 H (65-110) mg/dL Random Glucose (75-110) mg/dL Calcium (8.6-10.4) mg/dl Phosphorus (2.5-4.5) mg/dL Magnesium (1.6-2.3) mg/dL Total Bilirubin (0.2-1.3) mg/dL AST (17-59) U/L ALT (21-72) U/L Alkaline Phosphatase (38-126) U/L Total Protein (6.3-8.3) g/dL Albumin (3.5-5.0) g/dL Globulin (2.2-3.9) gm/dL Albumin/Globulin Ratio (1.0-2.1) Arterial Blood Potassium (3.6-5.2) mmol/L Laboratory Results - last 24 hr 11/09/18 11/09/18 11/09/18 11:07 18:07 23:21 WBC RBC Hgb Hct MCV MCH MCHC RDW Plt Count MPV Neut % (Auto) Lymph % (Auto) [place] % (Auto) Eos % (Auto) Baso % (Auto) Neut # (Auto) Lymph # (Auto) [place] # (Auto) Eos # (Auto) Baso # (Auto) Puncture Site pCO2 pO2 HCO3 ABG pH ABG Total CO2 ABG O2 Saturation ABG Base Excess Ruiz Test ABG Potassium A-a O2 Difference Respiratory Index Sodium Chloride Glucose Lactate Vent Mode Mechanical Rate FiO2 Tidal Volume PEEP Potassium Carbon Dioxide Anion Gap BUN Creatinine Est GFR ( Amer) Est GFR (Non-Af Amer) POC Glucose (mg/dL) 138 H 144 H 160 H Random Glucose Calcium Phosphorus Magnesium Total Bilirubin AST ALT Alkaline Phosphatase Total Protein Albumin Globulin Albumin/Globulin Ratio Arterial Blood Potassium 11/10/18 11/10/18 11/10/18 05:18 05:18 06:10 WBC 8.3 RBC 3.47 L Hgb 8.9 L Hct 27.4 L MCV 79.1 L MCH 25.7 L MCHC 32.5 L RDW 20.4 H Plt Count 176 MPV 9.9 Neut % (Auto) 60.8 Lymph % (Auto) 33.1 [place] % (Auto) 4.2 Eos % (Auto) 1.5 Baso % (Auto) 0.4 Neut # (Auto) 5.0 Lymph # (Auto) 2.7 [place] # (Auto) 0.3 Eos # (Auto) 0.1 Baso # (Auto) 0.0 Puncture Site Rr pCO2 43 pO2 67 L HCO3 34.1 H ABG pH 7.53 H ABG Total CO2 37.2 H ABG O2 Saturation 96.0 ABG Base Excess 11.8 H Ruiz Test Pos ABG Potassium 3.3 L A-a O2 Difference 200.0 Respiratory Index 3.0 Sodium 142.0 Chloride 108.0 H Glucose 174 H Lactate 1.3 Vent Mode Prvc Mechanical Rate 20 FiO2 45.0 Tidal Volume 500 PEEP 5 Potassium Carbon Dioxide Anion Gap BUN Creatinine Est GFR ( Amer) Est GFR (Non-Af Amer) POC Glucose (mg/dL) 190 H Random Glucose Calcium Phosphorus Magnesium Total Bilirubin AST ALT Alkaline Phosphatase Total Protein Albumin Globulin Albumin/Globulin Ratio Arterial Blood Potassium 3.3 L 11/10/18 06:10 WBC RBC Hgb Hct MCV MCH MCHC RDW Plt Count MPV Neut % (Auto) Lymph % (Auto) [place] % (Auto) Eos % (Auto) Baso % (Auto) Neut # (Auto) Lymph # (Auto) [place] # (Auto) Eos # (Auto) Baso # (Auto) Puncture Site pCO2 pO2 HCO3 ABG pH ABG Total CO2 ABG O2 Saturation ABG Base Excess Ruiz Test ABG Potassium A-a O2 Difference Respiratory Index Sodium 138 Chloride 101 Glucose Lactate Vent Mode Mechanical Rate FiO2 Tidal Volume PEEP Potassium 3.5 L Carbon Dioxide 35 H Anion Gap 6 L BUN 19 Creatinine 0.9 Est GFR ( Amer) > 60 Est GFR (Non-Af Amer) > 60 POC Glucose (mg/dL) Random Glucose 166 H Calcium 7.5 L Phosphorus 2.1 L Magnesium 1.9 Total Bilirubin 0.2 AST 20 ALT 15 L Alkaline Phosphatase 194 H Total Protein 6.4 Albumin 2.2 L Globulin 4.2 H Albumin/Globulin Ratio 0.5 L Arterial Blood Potassium Radiology Impressions: Radiology Impressions Chest X-Ray 11/09/18 04:00 IMPRESSION: Bilateral pulmonary infiltrates, unchanged. Lines and tubes unchanged. Fingerstick Blood Sugar Results: 190
[2018-11-10] MEDS: Valproic Acid 250 mg/5 ml UD Cup PO SCH ×2 (11:08→18:20)
[2018-11-10] MEDS: levETIRAcetam 100 mg/ml (5ml) Oral Syringe PO SCH ×2 (11:08→18:20)
[2018-11-10] MEDS: Enoxaparin 40 mg Syringe SC SCH (11:09)
--- NOTE | 2018-11-10 11:41 | RAD ---
Date of service: 11/10/2018 HISTORY: intubated COMPARISON: 11/09/2018 FINDINGS: LUNGS: Improving bilateral pulmonary opacity particularly left perihilar. Possible diffuse interstitial infiltrate. Consider interstitial pulmonary edema. PLEURA: No significant pleural effusion identified, no pneumothorax apparent. CARDIOVASCULAR: No aortic atherosclerotic calcification present. Normal cardiac size. No congestive change. ET tube, NG tube and right IJ central venous catheter are grossly unchanged. OSSEOUS STRUCTURES: No significant abnormalities. VISUALIZED UPPER ABDOMEN: Normal. OTHER FINDINGS: None. IMPRESSION: Improving bilateral pulmonary opacity. Lines and tubes unchanged.
[2018-11-10] MEDS: Propofol 10 mg/ml 1,000 MG/100 ML VIAL IV PRN ×2 (15:48→23:15)
--- NOTE | 2018-11-10 21:28 | CP.PCM.PN ---
Subjective - Date & Time of Evaluation Date of Evaluation: 11/10/18 Time of Evaluation: 11:30 - Subjective Subjective: clinically same Objective - Vital Signs/Intake and Output Vital Signs (last 24 hours): Temp Pulse Resp BP Pulse Ox 97.9 F 70 20 119/60 96 11/10/18 16:00 11/10/18 19:00 11/10/18 19:00 11/10/18 19:00 11/10/18 16:00 Intake and Output: 11/10/18 11/11/18 18:59 06:59 Intake Total 1219 45 Output Total 505 50 Balance 714 -5 - Medications Medications: Current Medications Enoxaparin Sodium (Lovenox) 40 mg SC DAILY [facility] Last Admin: 11/10/18 11:09 Dose: 40 mg Famotidine (Pepcid) 20 mg IVP Q12 [facility] Last Admin: 11/10/18 21:12 Dose: 20 mg Vancomycin HCl 1.25 gm/ Sodium (Chloride) 250 mls @ 120 mls/hr IVPB Q24H [facility]; Protocol Last Admin: 11/10/18 11:08 Dose: 120 mls/hr Propofol (Diprivan) 1,000 mg in 100 mls @ 1.716 mls/hr IV .Q24H PRN; Protocol PRN Reason: TITRATE PER MD ORDER Last Admin: 11/10/18 15:48 Dose: 15 mcg/kg/min, 5.148 mls/hr Piperacillin Sod/Tazobactam (Sod 3.375 gm/ Sodium Chloride) 100 mls @ 200 mls/hr IVPB Q8 [facility]; Protocol Last Admin: 11/10/18 21:12 Dose: 200 mls/hr Voriconazole 200 mg/ Sodium (Chloride) 100 mls @ 100 mls/hr IVPB Q12H [facility] Last Admin: 11/10/18 15:47 Dose: 100 mls/hr Insulin Human Regular (Novolin R) 0 unit SC Q6H [facility]; Protocol Last Admin: 11/10/18 18:18 Dose: Not Given Levetiracetam (Keppra) 500 mg PO BID [facility] Last Admin: 11/10/18 18:20 Dose: 500 mg Valproate Sodium (Depakene Oral Soln) 250 mg PO BID [facility] Last Admin: 11/10/18 18:20 Dose: 250 mg - Labs Labs: 12/23/18 06:10 11/10/18 06:10 PT 18.1 SECONDS (9.7-12.2) H 11/03/18 16:59 INR 1.7 11/03/18 16:59 APTT 46 SECONDS (21-34) H 11/03/18 16:59
[2018-11-11] MEDS: (Novolin R) Insulin Human Regular 100 units/ml vial SC SCH ×4 (01:16→18:00)
[2018-11-11 05:28] LABS: ABG ALLEN TEST POS; ARTERIAL BLOOD GAS HCO3 31.3 mmol/L (21-28); ARTERIAL BLOOD GAS O2 SAT 97.4 % (95-98); ARTERIAL BLOOD GAS PCO2 40 mm/Hg (35-45); ARTERIAL BLOOD GAS PH 7.51 (7.35-7.45); ARTERIAL BLOOD GAS PO2 86 mm/Hg (80-100); ARTERIAL BLOOD GAS TCO2 33.1 mmol/L (22-28)
[2018-11-11 05:43] LABS: BASO % 0.2 % (0.0-2.0); EOS # 0.1 K/uL (0.0-0.7); EOS % 1.6 % (0.0-4.0); HEMOGLOBIN 8.6 g/dL (12.0-18.0); LYMPH # 2.6 K/uL (1.0-4.3); LYMPH % 28.8 % (20.0-40.0); MEAN CELL VOLUME 79.5 fL (80.0-94.0); MEAN CORPUSCULAR HEMOGLOBIN 24.6 pg (27.0-31.0); MEAN CORPUSCULAR HGB CONC 30.9 g/dL (33.0-37.0); MEAN PLATELET VOLUME 9.6 fL (7.2-11.7); MONO # 0.4 K/uL (0.0-0.8); MONO % 4.4 % (0.0-10.0); NEUT # 5.8 K/uL (1.8-7.0); RBC 3.49 Mil/uL (4.40-5.90); RED CELL DISTRIBUTION WIDTH 20.4 % (11.5-14.5)
[2018-11-11] MEDS: Piperacillin/Tazobact 3.375 GM in Sodium Chloride 0.9% 100 ML IVPB SCH ×5 (05:43→21:12)
[2018-11-11 06:13] LABS: ALB/GLOB RATIO 0.5 (1.0-2.1); ALBUMIN 2.3 g/dL (3.5-5.0); ALT/SGPT 18 U/L (21-72); AST/SGOT 26 U/L (17-59); BLOOD UREA NITROGEN 16 mg/dL (9-20); CALCIUM 7.6 mg/dl (8.6-10.4); GFR NON-AFRICAN AMERICAN > 60
[2018-11-11] MEDS: Enoxaparin 40 mg Syringe SC SCH (09:21)
[2018-11-11] MEDS: Valproic Acid 250 mg/5 ml UD Cup PO SCH ×2 (09:22→18:35)
[2018-11-11] MEDS: levETIRAcetam 100 mg/ml (5ml) Oral Syringe PO SCH ×3 (09:23→19:20)
--- NOTE | 2018-11-11 11:39 | RAD ---
Date of service: 11/11/2018 HISTORY: intubated COMPARISON: Multiple serial examinations preceding the most recent study: November 10, 2018. FINDINGS: LUNGS: Multifocal infiltrates are approximately stable accounting for differences in technique and inspiratory effort. PLEURA: No significant pleural effusion identified, no pneumothorax apparent. CARDIOVASCULAR: No atherosclerotic calcification present No significant interval change compared to the prior examination(s). OSSEOUS STRUCTURES: No significant abnormalities. VISUALIZED UPPER ABDOMEN: Normal. OTHER FINDINGS: Stable, satisfactory position ventilatory, vascular and nasogastric apparatus. IMPRESSION: Stable appearance of support apparatus. Stable multifocal bilateral infiltrates.
--- NOTE | 2018-11-11 14:17 | CP.PCM.PN ---
Subjective - Date & Time of Evaluation Date of Evaluation: 11/11/18 Time of Evaluation: 12:45 - Subjective Subjective: patient seen and examined 63-year-old male with a history of dementia advanced hypertension diabetes high cholesterol paraparesis admitted to the hospital with the possible aspiration pneumonia staphylococcal infection of the lungs currently being treated with IV antibiotics Not tolerating weaning Consider trach and PEG Objective - Vital Signs/Intake and Output Vital Signs (last 24 hours): Temp Pulse Resp BP Pulse Ox 98.3 F 62 23 138/76 94 L 11/11/18 08:00 11/11/18 12:00 11/11/18 12:00 11/11/18 12:00 11/11/18 12:00 Intake and Output: 11/11/18 11/11/18 06:59 18:59 Intake Total 878.7 530 Output Total 835 228 Balance 43.7 302 - Medications Medications: Current Medications Enoxaparin Sodium (Lovenox) 40 mg SC DAILY [facility] Last Admin: 11/11/18 09:21 Dose: 40 mg Famotidine (Pepcid) 20 mg GT Q12 [facility] Last Admin: 11/11/18 09:22 Dose: 20 mg Vancomycin HCl 1.25 gm/ Sodium (Chloride) 250 mls @ 120 mls/hr IVPB Q24H [facility]; Protocol Last Admin: 11/11/18 09:11 Dose: 120 mls/hr Propofol (Diprivan) 1,000 mg in 100 mls @ 1.716 mls/hr IV .Q24H PRN; Protocol PRN Reason: TITRATE PER MD ORDER Last Admin: 11/10/18 23:15 Dose: 15 mcg/kg/min, 5.148 mls/hr Piperacillin Sod/Tazobactam (Sod 3.375 gm/ Sodium Chloride) 100 mls @ 200 mls/hr IVPB Q8 [facility]; Protocol Last Admin: 11/11/18 05:43 Dose: 200 mls/hr Voriconazole 200 mg/ Sodium (Chloride) 100 mls @ 100 mls/hr IVPB Q12H [facility] Last Admin: 11/11/18 02:01 Dose: 100 mls/hr Insulin Human Regular (Novolin R) 0 unit SC Q6H [facility]; Protocol Last Admin: 11/11/18 12:30 Dose: Not Given Levetiracetam (Keppra) 500 mg PO BID [facility] Last Admin: 11/11/18 09:23 Dose: 500 mg Valproate Sodium (Depakene Oral Soln) 250 mg PO BID [facility] Last Admin: 11/11/18 09:22 Dose: 250 mg - Labs Labs: 11/11/18 05:35 11/11/18 05:35 PT 18.1 SECONDS (9.7-12.2) H 11/03/18 16:59 INR 1.7 11/03/18 16:59 APTT 46 SECONDS (21-34) H 11/03/18 16:59 Assessment and Plan (1) Pneumonia Status: Acute (2) Sepsis Status: Acute (3) Acute respiratory failure with hypoxemia Status: Acute
--- NOTE | 2018-11-11 17:53 | CP.PCM.PN ---
Subjective - Date & Time of Evaluation Date of Evaluation: 11/11/18 Time of Evaluation: 11:45 - Subjective Subjective: clinically same Objective - Vital Signs/Intake and Output Vital Signs (last 24 hours): Temp Pulse Resp BP Pulse Ox 98.8 F 73 28 H 130/62 97 11/11/18 16:00 11/11/18 16:00 11/11/18 16:00 11/11/18 16:00 11/11/18 15:01 Intake and Output: 11/11/18 11/11/18 06:59 18:59 Intake Total 878.7 768 Output Total 835 908 Balance 43.7 -140 - Medications Medications: Current Medications Enoxaparin Sodium (Lovenox) 40 mg SC DAILY [facility] Last Admin: 11/11/18 09:21 Dose: 40 mg Famotidine (Pepcid) 20 mg GT Q12 [facility] Last Admin: 11/11/18 09:22 Dose: 20 mg Vancomycin HCl 1.25 gm/ Sodium (Chloride) 250 mls @ 120 mls/hr IVPB Q24H [facility]; Protocol Last Admin: 11/11/18 09:11 Dose: 120 mls/hr Propofol (Diprivan) 1,000 mg in 100 mls @ 1.716 mls/hr IV .Q24H PRN; Protocol PRN Reason: TITRATE PER MD ORDER Last Titration: 11/11/18 15:00 Dose: 14.56 mcg/kg/min, 5 mls/hr Piperacillin Sod/Tazobactam (Sod 3.375 gm/ Sodium Chloride) 100 mls @ 200 mls/hr IVPB Q8 [facility]; Protocol Last Admin: 11/11/18 14:30 Dose: 200 mls/hr Voriconazole 200 mg/ Sodium (Chloride) 100 mls @ 100 mls/hr IVPB Q12H [facility] Last Admin: 11/11/18 15:00 Dose: 100 mls/hr Insulin Human Regular (Novolin R) 0 unit SC Q6H [facility]; Protocol Last Admin: 11/11/18 12:30 Dose: Not Given Levetiracetam (Keppra) 500 mg PO BID [facility] Last Admin: 11/11/18 09:23 Dose: 500 mg Valproate Sodium (Depakene Oral Soln) 250 mg PO BID [facility] Last Admin: 11/11/18 09:22 Dose: 250 mg - Labs Labs: 11/11/18 05:35 11/11/18 05:35 PT 18.1 SECONDS (9.7-12.2) H 11/03/18 16:59 INR 1.7 11/03/18 16:59 APTT 46 SECONDS (21-34) H 11/03/18 16:59 - Constitutional Appears: Well - Head Exam Head Exam: ATRAUMATIC, NORMAL INSPECTION, NORMOCEPHALIC - Eye Exam Eye Exam: EOMI, Normal appearance, PERRL Pupil Exam: NORMAL ACCOMODATION, PERRL - ENT Exam ENT Exam: Mucous Membranes Moist, Normal Exam - Neck Exam Neck Exam: Full ROM, Normal Inspection. absent: Lymphadenopathy - Respiratory Exam Respiratory Exam: Decreased Breath Sounds - Cardiovascular Exam Cardiovascular Exam: REGULAR RHYTHM, +S1, +S2 - GI/Abdominal Exam GI & Abdominal Exam: Soft, Diminished Bowel Sounds - Rectal Exam Rectal Exam: Deferred
--- NOTE | 2018-11-11 19:37 | CP.CCUPN ---
CCU Subjective - Physician Review Subjective (Free Text): 11/11/18 19:29 PGY-1 Critical Care Progress Note for Dr. Momin's service Patient seen and examined at bedside. 12 point ROS limited as patient is intubated. Critical Care Time Spent (in minutes): 35 CCU Objective - Vital Signs / Intake & Output Vital Signs (Last 4 hours): Vital Signs Temp Pulse Resp BP 11/11/18 16:00 98.8 F 73 28 H 132/64 Intake and Output (Last 8hrs): Intake & Output 11/11/18 11/11/18 11/11/18 06:59 14:59 22:59 Intake Total 598.7 757 11 Output Total 635 608 300 Balance -36.3 149 -289 Weight 118 lb 3.2 oz Intake: IV 38.7 1 Intake, IV Amount 240 377 10 Right Distal Port 200 350 Internal Jugular Right Medial Port 40 27 10 Internal Jugular Tube Feeding 320 200 Other 180 Output: Urine 635 428 180 Urethral (Nelson) 635 428 180 Other 180 120 Other: # Bowel Movements 1 1 1 - Physical Exam Head: Positive for: Atraumatic, Normocephalic Extroacular Muscles: Positive for: EOMI Conjunctiva: Positive for: Normal Respiratory/Chest: Positive for: Clear to Auscultation, Good Air Exchange, Wheezes (L>R). Negative for: Respiratory Distress Cardiovascular: Positive for: Regular Rate and Rhythm, Normal S1, S2 Abdomen: Negative for: Tenderness, Distention, Rebound, Guarding Upper Extremity: Positive for: Normal Inspection Lower Extremity: Positive for: Normal Inspection. Negative for: Edema Neurological: Positive for: Other (left leg with sudden kicks) Skin: Positive for: Warm, Dry, Normal Color Psychiatric: Positive for: Alert - Medications Active Medications: Active Medications Generic Name Dose Route Start Last Admin Trade Name Freq PRN Reason Stop Dose Admin Enoxaparin Sodium 40 mg 11/04/18 10:00 11/11/18 09:21 Lovenox SC 40 mg DAILY HUMBERTO Administration Famotidine 20 mg 11/11/18 10:00 11/11/18 09:22 Pepcid GT 20 mg Q12 HUMBERTO Administration Vancomycin HCl 1.25 gm/ Sodium 250 mls @ 120 mls/hr 11/09/18 10:00 11/11/18 09:11 Chloride IVPB 120 mls/hr Q24H HUMBERTO Administration Protocol Propofol 1,000 mg in 100 mls @ 1.716 mls/hr 11/09/18 09:06 11/11/18 15:00 Diprivan IV 14.56 mcg/kg/min .Q24H PRN 5 mls/hr TITRATE PER MD ORDER Titration Protocol 5 MCG/KG/MIN Piperacillin Sod/Tazobactam 100 mls @ 200 mls/hr 11/09/18 22:00 11/11/18 14:15 Sod 3.375 gm/ Sodium Chloride IVPB 200 mls/hr Q8 HUMBERTO Administration Protocol Voriconazole 200 mg/ Sodium 100 mls @ 100 mls/hr 11/10/18 02:00 11/11/18 15:00 Chloride IVPB 100 mls/hr Q12H HUMBERTO Administration Insulin Human Regular 0 unit 11/04/18 00:00 11/11/18 18:00 Novolin R SC Not Given Q6H HUMBERTO Protocol Levetiracetam 500 mg 11/03/18 21:00 11/11/18 19:19 Keppra PO 500 mg BID HUMBERTO Administration Valproate Sodium 250 mg 11/03/18 21:00 11/11/18 18:35 Depakene Oral Soln PO 250 mg BID HUMBERTO Administration - Patient Studies Lab Studies: Microbiology Studies 11/08/18 18:53 Fungal Culture - Preliminary Endotracheal 11/05/18 16:03 Blood Culture - Final Blood-Thru Central Line NO GROWTH AFTER 5 DAYS Gram Stain - Final TEST NOT PERFORMED 11/05/18 16:03 Blood Culture - Final Blood-Thru Central Line NO GROWTH AFTER 5 DAYS Gram Stain - Final TEST NOT PERFORMED Lab Studies 11/11/18 11/11/18 11/11/18 Range/Units 17:38 11:49 05:35 WBC (4.8-10.8) K/uL RBC (4.40-5.90) Mil/uL Hgb (12.0-18.0) g/dL Hct (35.0-51.0) % MCV (80.0-94.0) fL MCH (27.0-31.0) pg MCHC (33.0-37.0) g/dL RDW (11.5-14.5) % Plt Count (130-400) K/uL MPV (7.2-11.7) fL Neut % (Auto) (50.0-75.0) % Lymph % (Auto) (20.0-40.0) % [place] % (Auto) (0.0-10.0) % Eos % (Auto) (0.0-4.0) % Baso % (Auto) (0.0-2.0) % Neut # (Auto) (1.8-7.0) K/uL Lymph # (Auto) (1.0-4.3) K/uL [place] # (Auto) (0.0-0.8) K/uL Eos # (Auto) (0.0-0.7) K/uL Baso # (Auto) (0.0-0.2) K/uL Puncture Site pCO2 (35-45) mm/Hg pO2 (80-100) mm/Hg HCO3 (21-28) mmol/L ABG pH (7.35-7.45) ABG Total CO2 (22-28) mmol/L ABG O2 Saturation (95-98) % ABG Base Excess (-2.0-3.0) mmol/L Ruiz Test ABG Potassium (3.6-5.2) mmol/L A-a O2 Difference mm/Hg Respiratory Index Sodium 138 (132-148) mmol/l Chloride 105 (98-107) mmol/L Glucose (75-110) mg/dl Lactate (0.7-2.1) mmol/L Vent Mode Mechanical Rate FiO2 % Tidal Volume PEEP Potassium 3.6 (3.6-5.2) mmol/L Carbon Dioxide 32 H (22-30) mmol/L Anion Gap 5 L (10-20) BUN 16 (9-20) mg/dL Creatinine 0.9 (0.8-1.5) mg/dL Est GFR ( Amer) > 60 Est GFR (Non-Af Amer) > 60 POC Glucose (mg/dL) 86 116 H (65-110) mg/dL Random Glucose 134 H (75-110) mg/dL Calcium 7.6 L (8.6-10.4) mg/dl Phosphorus 2.1 L (2.5-4.5) mg/dL Magnesium 2.0 (1.6-2.3) mg/dL Total Bilirubin 0.2 (0.2-1.3) mg/dL AST 26 (17-59) U/L ALT 18 L (21-72) U/L Alkaline Phosphatase 182 H (38-126) U/L Total Protein 6.5 (6.3-8.3) g/dL Albumin 2.3 L (3.5-5.0) g/dL Globulin 4.2 H (2.2-3.9) gm/dL Albumin/Globulin Ratio 0.5 L (1.0-2.1) Arterial Blood Potassium (3.6-5.2) mmol/L 11/11/18 11/11/18 11/11/18 Range/Units 05:35 05:26 05:24 WBC 9.0 (4.8-10.8) K/uL RBC 3.49 L (4.40-5.90) Mil/uL Hgb 8.6 L (12.0-18.0) g/dL Hct 27.8 L (35.0-51.0) % MCV 79.5 L (80.0-94.0) fL MCH 24.6 L (27.0-31.0) pg MCHC 30.9 L (33.0-37.0) g/dL RDW 20.4 H (11.5-14.5) % Plt Count 219 (130-400) K/uL MPV 9.6 (7.2-11.7) fL Neut % (Auto) 65.0 (50.0-75.0) % Lymph % (Auto) 28.8 (20.0-40.0) % [place] % (Auto) 4.4 (0.0-10.0) % Eos % (Auto) 1.6 (0.0-4.0) % Baso % (Auto) 0.2 (0.0-2.0) % Neut # (Auto) 5.8 (1.8-7.0) K/uL Lymph # (Auto) 2.6 (1.0-4.3) K/uL [place] # (Auto) 0.4 (0.0-0.8) K/uL Eos # (Auto) 0.1 (0.0-0.7) K/uL Baso # (Auto) 0.0 (0.0-0.2) K/uL Puncture Site pCO2 (35-45) mm/Hg pO2 (80-100) mm/Hg HCO3 (21-28) mmol/L ABG pH (7.35-7.45) ABG Total CO2 (22-28) mmol/L ABG O2 Saturation (95-98) % ABG Base Excess (-2.0-3.0) mmol/L Ruiz Test ABG Potassium (3.6-5.2) mmol/L A-a O2 Difference mm/Hg Respiratory Index Sodium (132-148) mmol/l Chloride (98-107) mmol/L Glucose (75-110) mg/dl Lactate (0.7-2.1) mmol/L Vent Mode Mechanical Rate FiO2 % Tidal Volume PEEP Potassium (3.6-5.2) mmol/L Carbon Dioxide (22-30) mmol/L Anion Gap (10-20) BUN (9-20) mg/dL Creatinine (0.8-1.5) mg/dL Est GFR ( Amer) Est GFR (Non-Af Amer) POC Glucose (mg/dL) 130 H < 20 L* (65-110) mg/dL Random Glucose (75-110) mg/dL Calcium (8.6-10.4) mg/dl Phosphorus (2.5-4.5) mg/dL Magnesium (1.6-2.3) mg/dL Total Bilirubin (0.2-1.3) mg/dL AST (17-59) U/L ALT (21-72) U/L Alkaline Phosphatase (38-126) U/L Total Protein (6.3-8.3) g/dL Albumin (3.5-5.0) g/dL Globulin (2.2-3.9) gm/dL Albumin/Globulin Ratio (1.0-2.1) Arterial Blood Potassium (3.6-5.2) mmol/L 11/11/18 11/10/18 Range/Units 05:20 23:37 WBC (4.8-10.8) K/uL RBC (4.40-5.90) Mil/uL Hgb (12.0-18.0) g/dL Hct (35.0-51.0) % MCV (80.0-94.0) fL MCH (27.0-31.0) pg MCHC (33.0-37.0) g/dL RDW (11.5-14.5) % Plt Count (130-400) K/uL MPV (7.2-11.7) fL Neut % (Auto) (50.0-75.0) % Lymph % (Auto) (20.0-40.0) % [place] % (Auto) (0.0-10.0) % Eos % (Auto) (0.0-4.0) % Baso % (Auto) (0.0-2.0) % Neut # (Auto) (1.8-7.0) K/uL Lymph # (Auto) (1.0-4.3) K/uL [place] # (Auto) (0.0-0.8) K/uL Eos # (Auto) (0.0-0.7) K/uL Baso # (Auto) (0.0-0.2) K/uL Puncture Site Rr pCO2 40 (35-45) mm/Hg pO2 86 (80-100) mm/Hg HCO3 31.3 H (21-28) mmol/L ABG pH 7.51 H (7.35-7.45) ABG Total CO2 33.1 H (22-28) mmol/L ABG O2 Saturation 97.4 (95-98) % ABG Base Excess 8.2 H (-2.0-3.0) mmol/L Ruiz Test Pos ABG Potassium 3.6 (3.6-5.2) mmol/L A-a O2 Difference 185.0 mm/Hg Respiratory Index 2.2 Sodium 142.0 (132-148) mmol/l Chloride 110.0 H (98-107) mmol/L Glucose 142 H (75-110) mg/dl Lactate 1.2 (0.7-2.1) mmol/L Vent Mode Prvc Mechanical Rate 20 FiO2 45.0 % Tidal Volume 500 PEEP 5 Potassium (3.6-5.2) mmol/L Carbon Dioxide (22-30) mmol/L Anion Gap (10-20) BUN (9-20) mg/dL Creatinine (0.8-1.5) mg/dL Est GFR ( Amer) Est GFR (Non-Af Amer) POC Glucose (mg/dL) 128 H (65-110) mg/dL Random Glucose (75-110) mg/dL Calcium (8.6-10.4) mg/dl Phosphorus (2.5-4.5) mg/dL Magnesium (1.6-2.3) mg/dL Total Bilirubin (0.2-1.3) mg/dL AST (17-59) U/L ALT (21-72) U/L Alkaline Phosphatase (38-126) U/L Total Protein (6.3-8.3) g/dL Albumin (3.5-5.0) g/dL Globulin (2.2-3.9) gm/dL Albumin/Globulin Ratio (1.0-2.1) Arterial Blood Potassium 3.6 (3.6-5.2) mmol/L Laboratory Results - last 24 hr 11/10/18 11/11/18 11/11/18 23:37 05:20 05:24 WBC RBC Hgb Hct MCV MCH MCHC RDW Plt Count MPV Neut % (Auto) Lymph % (Auto) [place] % (Auto) Eos % (Auto) Baso % (Auto) Neut # (Auto) Lymph # (Auto) [place] # (Auto) Eos # (Auto) Baso # (Auto) Puncture Site Rr pCO2 40 pO2 86 HCO3 31.3 H ABG pH 7.51 H ABG Total CO2 33.1 H ABG O2 Saturation 97.4 ABG Base Excess 8.2 H Ruiz Test Pos ABG Potassium 3.6 A-a O2 Difference 185.0 Respiratory Index 2.2 Sodium 142.0 Chloride 110.0 H Glucose 142 H Lactate 1.2 Vent Mode Prvc Mechanical Rate 20 FiO2 45.0 Tidal Volume 500 PEEP 5 Potassium Carbon Dioxide Anion Gap BUN Creatinine Est GFR ( Amer) Est GFR (Non-Af Amer) POC Glucose (mg/dL) 128 H < 20 L* Random Glucose Calcium Phosphorus Magnesium Total Bilirubin AST ALT Alkaline Phosphatase Total Protein Albumin Globulin Albumin/Globulin Ratio Arterial Blood Potassium 3.6 11/11/18 11/11/18 11/11/18 05:26 05:35 05:35 WBC 9.0 RBC 3.49 L Hgb 8.6 L Hct 27.8 L MCV 79.5 L MCH 24.6 L MCHC 30.9 L RDW 20.4 H Plt Count 219 MPV 9.6 Neut % (Auto) 65.0 Lymph % (Auto) 28.8 [place] % (Auto) 4.4 Eos % (Auto) 1.6 Baso % (Auto) 0.2 Neut # (Auto) 5.8 Lymph # (Auto) 2.6 [place] # (Auto) 0.4 Eos # (Auto) 0.1 Baso # (Auto) 0.0 Puncture Site pCO2 pO2 HCO3 ABG pH ABG Total CO2 ABG O2 Saturation ABG Base Excess Ruiz Test ABG Potassium A-a O2 Difference Respiratory Index Sodium 138 Chloride 105 Glucose Lactate Vent Mode Mechanical Rate FiO2 Tidal Volume PEEP Potassium 3.6 Carbon Dioxide 32 H Anion Gap 5 L BUN 16 Creatinine 0.9 Est GFR ( Amer) > 60 Est GFR (Non-Af Amer) > 60 POC Glucose (mg/dL) 130 H Random Glucose 134 H Calcium 7.6 L Phosphorus 2.1 L Magnesium 2.0 Total Bilirubin 0.2 AST 26 ALT 18 L Alkaline Phosphatase 182 H Total Protein 6.5 Albumin 2.3 L Globulin 4.2 H Albumin/Globulin Ratio 0.5 L Arterial Blood Potassium 11/11/18 11/11/18 11:49 17:38 WBC RBC Hgb Hct MCV MCH MCHC RDW Plt Count MPV Neut % (Auto) Lymph % (Auto) [place] % (Auto) Eos % (Auto) Baso % (Auto) Neut # (Auto) Lymph # (Auto) [place] # (Auto) Eos # (Auto) Baso # (Auto) Puncture Site pCO2 pO2 HCO3 ABG pH ABG Total CO2 ABG O2 Saturation ABG Base Excess Ruiz Test ABG Potassium A-a O2 Difference Respiratory Index Sodium Chloride Glucose Lactate Vent Mode Mechanical Rate FiO2 Tidal Volume PEEP Potassium Carbon Dioxide Anion Gap BUN Creatinine Est GFR ( Amer) Est GFR (Non-Af Amer) POC Glucose (mg/dL) 116 H 86 Random Glucose Calcium Phosphorus Magnesium Total Bilirubin AST ALT Alkaline Phosphatase Total Protein Albumin Globulin Albumin/Globulin Ratio Arterial Blood Potassium Radiology Impressions: Radiology Impressions Chest X-Ray 11/11/18 04:00 IMPRESSION: Stable appearance of support apparatus. Stable multifocal bilateral infiltrates. Fingerstick Blood Sugar Results: 86 Review of Systems - Review of Systems Systems not reviewed;Unavailable: Intubated Critical Care Progress Note - Ventilator Checklist Head of Bed 30 Degrees: Yes Daily Sedation Vacation: Yes Daily Assessment of Readiness to Wean: Yes Daily Spontaneous Breathing Trial: Yes PUD Prophalyxis: Yes DVT Prophylaxis: Yes Oral Care with Chlorhexidine Gluconate {CHG}: Yes - Vent Settings MODE:: PRVC TIDAL VOLUME:: 450 RESP RATE:: 16 FIO2:: 40 PEEP:: 5 - Extremities/Vascular Does the Patient have a Nelson Catheter?: Yes Does the Patient need a Nelson Catheter?: Yes Catheter Insertion Criteria: Need for accurate measurement of output in critically ill patient - Restraints Justification for Restraints: High risk for self extubation, High risk for removing IV access - Prophylaxis GI Prophylaxis GI: Pepsid - Prophylaxis DVT Prophylaxis DVT: Lovenox Assessment/Plan - Assessment and Plan (Free Text) Assessment: 63 y/o male with multiple medical problems including PMHx of seizures, DM, CVA, bipolar disorder, and dementia with respiratory failure. Neuro: Sedated on Propfol drip; Keppra; Valproate; Alert Pulm: Intubated with ET tube; Vent settings 16/450/5/40%; daily cxr and abg CV: Echo- needs OLEG for further evaluation for endocarditis; Clinically does not meet Tomas's major criteria or minor criteria GI: no active issues; On tube feeds glucerna Renal: MANPREET resolved; no need for fluids ID: Voriconazole for hx of aspergillosis; + cultures for s aureus and coag - staph; Zosyn/Vanc DVT ppx: Lovenox GI ppx: Pepcid PGY-1 [facility] d/w Dr. Castle
--- NOTE | 2018-11-11 21:44 | CP.PCM.PN ---
Subjective - Date & Time of Evaluation Date of Evaluation: 11/11/18 Time of Evaluation: 16:00 - Subjective Subjective: dictated Objective - Vital Signs/Intake and Output Vital Signs (last 24 hours): Temp Pulse Resp BP Pulse Ox 98.5 F 65 23 127/60 94 L 11/11/18 20:00 11/11/18 21:00 11/11/18 21:00 11/11/18 21:00 11/11/18 21:00 Intake and Output: 11/11/18 11/12/18 18:59 06:59 Intake Total 853 Output Total 1308 Balance -455 - Medications Medications: Current Medications Enoxaparin Sodium (Lovenox) 40 mg SC DAILY HUMBERTO Last Admin: 11/11/18 09:21 Dose: 40 mg Famotidine (Pepcid) 20 mg GT Q12 HUMBERTO Last Admin: 11/11/18 21:12 Dose: 20 mg Vancomycin HCl 1.25 gm/ Sodium (Chloride) 250 mls @ 120 mls/hr IVPB Q24H HUMBERTO; Protocol Last Admin: 11/11/18 09:11 Dose: 120 mls/hr Propofol (Diprivan) 1,000 mg in 100 mls @ 1.716 mls/hr IV .Q24H PRN; Protocol PRN Reason: TITRATE PER MD ORDER Last Titration: 11/11/18 15:00 Dose: 14.56 mcg/kg/min, 5 mls/hr Piperacillin Sod/Tazobactam (Sod 3.375 gm/ Sodium Chloride) 100 mls @ 200 mls/hr IVPB Q8 HUMBERTO; Protocol Last Admin: 11/11/18 21:12 Dose: 200 mls/hr Voriconazole 200 mg/ Sodium (Chloride) 100 mls @ 100 mls/hr IVPB Q12H HUMBERTO Last Admin: 11/11/18 15:00 Dose: 100 mls/hr Insulin Human Regular (Novolin R) 0 unit SC Q6H HUMBERTO; Protocol Last Admin: 11/11/18 18:00 Dose: Not Given Levetiracetam (Keppra) 500 mg PO BID [facility] Last Admin: 11/11/18 19:19 Dose: 500 mg Valproate Sodium (Depakene Oral Soln) 250 mg PO BID HUMBERTO Last Admin: 11/11/18 18:35 Dose: 250 mg - Labs Labs: 11/11/18 05:35 11/11/18 05:35 PT 18.1 SECONDS (9.7-12.2) H 11/03/18 16:59 INR 1.7 11/03/18 16:59 APTT 46 SECONDS (21-34) H 11/03/18 16:59
--- NOTE | 2018-11-11 22:19 | PN ---
DATE: 11/11/2018 SUBJECTIVE: The patient remains intubated. He is still on the ventilator. It has been difficult to wean him. He opens his eyes, but he does not follow any commands. PHYSICAL EXAMINATION: VITAL SIGNS: T-max is 98.8, pulse 73, blood pressure 132/64, respirations are 28. HEENT: Head is atraumatic. NECK: Supple, intubated. JVP is flat. LUNGS: Clear. No crackles or rales or wheezing heard. HEART: S1, S2 is regular. No murmurs appreciated. ABDOMEN: Soft, nontender. No guarding, no rigidity present. EXTREMITIES: Have no edema. He has foot protectors. He is paraplegic otherwise. LABORATORY DATA: Labs are noted. Labs show white count is 9, hemoglobin 8.6, hematocrit 27.8, platelet count is 219. His ABG shows pH is 7.51, oxygen saturation is adequate, lactate is 1.2, and creatinine is 0.9. MEDICATIONS: He is on Zosyn as his sputum had methicillin-sensitive Staph aureus. He continues to be on vancomycin 125, which I ordered, as when he came he had a midline. He also had one blood culture positive coagulase-negative, so I wanted to give it for 14 days this medicine. 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 He has respiratory failure, dementia, paraplegia with history of CVA. Jenna Fine MD
[2018-11-12] MEDS: (Novolin R) Insulin Human Regular 100 units/ml vial SC SCH ×4 (00:30→18:36)
[2018-11-12 05:55] LABS: ABG ALLEN TEST POS; ARTERIAL BLOOD GAS HEMOGLOBIN 9.4 g/dL (11.7-17.4); ARTERIAL BLOOD GAS O2 SAT 98.4 % (95-98); ARTERIAL BLOOD GAS PCO2 42 mm/Hg (35-45); ARTERIAL BLOOD GAS PH 7.44 (7.35-7.45); ARTERIAL BLOOD GAS PO2 83 mm/Hg (80-100); ARTERIAL BLOOD GAS TCO2 29.8 mmol/L (22-28)
[2018-11-12 06:25] LABS: BASO # 0.1 K/uL (0.0-0.2); BASO % 0.5 % (0.0-2.0); EOS # 0.1 K/uL (0.0-0.7); EOS % 1.3 % (0.0-4.0); HEMOGLOBIN 9.2 g/dL (12.0-18.0); LYMPH # 3.1 K/uL (1.0-4.3); LYMPH % 28.7 % (20.0-40.0); MEAN CELL VOLUME 79.4 fL (80.0-94.0); MEAN CORPUSCULAR HEMOGLOBIN 24.8 pg (27.0-31.0); MEAN CORPUSCULAR HGB CONC 31.3 g/dL (33.0-37.0); MEAN PLATELET VOLUME 9.4 fL (7.2-11.7); MONO # 0.4 K/uL (0.0-0.8); MONO % 3.8 % (0.0-10.0); NEUT % 65.7 % (50.0-75.0); RBC 3.68 Mil/uL (4.40-5.90); WHITE BLOOD COUNT 10.6 K/uL (4.8-10.8)
[2018-11-12] MEDS: Piperacillin/Tazobact 3.375 GM in Sodium Chloride 0.9% 100 ML IVPB SCH ×3 (06:37→22:02)
[2018-11-12 06:42] LABS: ALB/GLOB RATIO 0.5 (1.0-2.1); ALBUMIN 2.4 g/dL (3.5-5.0); ALT/SGPT 18 U/L (21-72); AST/SGOT 24 U/L (17-59); BLOOD UREA NITROGEN 13 mg/dL (9-20); CALCIUM 7.7 mg/dl (8.6-10.4); GFR NON-AFRICAN AMERICAN > 60
--- NOTE | 2018-11-12 08:31 | RAD ---
Date of service: 11/12/2018 HISTORY: intubated COMPARISON: Portable chest 11/11/2018. FINDINGS: LUNGS: Endotracheal tube and right central venous line are unchanged in position. There is no significant interval change in mild reticular infiltrates scattered bilaterally. PLEURA: No significant pleural effusion identified, no pneumothorax apparent. CARDIOVASCULAR: No aortic atherosclerotic calcification present. Normal cardiac size. No pulmonary vascular congestion. OSSEOUS STRUCTURES: No significant abnormalities. VISUALIZED UPPER ABDOMEN: Normal. OTHER FINDINGS: None. IMPRESSION: Stable bilateral reticular infiltrates. No interval pleural effusion pneumothorax or definite alveolitis.
[2018-11-12] MEDS: Propofol 10 mg/ml 1,000 MG/100 ML VIAL IV PRN (10:01)
[2018-11-12] MEDS: Enoxaparin 40 mg Syringe SC SCH (10:02)
[2018-11-12] MEDS: Valproic Acid 250 mg/5 ml UD Cup PO SCH ×2 (10:03→17:15)
[2018-11-12] MEDS: levETIRAcetam 100 mg/ml (5ml) Oral Syringe PO SCH ×2 (10:03→17:15)
--- NOTE | 2018-11-12 14:57 | CP.CCUPN ---
<Francisca Stanton - Last Filed: 11/12/18 15:04> CCU Subjective - Physician Review Subjective (Free Text): ICU Progress Note for Dr. Tafoya Patient seen and examined at bedside this morning. Patient resting comfortably in bed, eyes opened but not following commands. Due to patient condition, ROS unable to be obtained. 11/08/18 13:24 11/08/18 14:15 11/12/18 14:53 CCU Objective - Vital Signs / Intake & Output Vital Signs (Last 4 hours): Vital Signs Pulse Resp BP Pulse Ox 11/12/18 11:01 72 42 H 132/66 95 11/12/18 11:00 71 33 H 96 Intake and Output (Last 8hrs): Intake & Output 11/11/18 11/12/18 11/12/18 22:59 06:59 14:59 Intake Total 396 560 324 Output Total 860 370 200 Balance -464 190 124 Weight 117 lb 12.8 oz Intake: IV 1 99 Intake, IV Amount 135 240 25 Right Medial Port 35 40 25 Internal Jugular Right Proximal Port 100 200 Internal Jugular Tube Feeding 120 320 200 Other 140 Output: Urine 740 370 200 Urethral (Nelson) 740 370 200 Other 120 Other: # Bowel Movements 0 0 1 - Physical Exam Head: Positive for: Atraumatic, Normocephalic Extroacular Muscles: Positive for: EOMI Conjunctiva: Positive for: Normal Respiratory/Chest: Positive for: Clear to Auscultation, Good Air Exchange. Negative for: Respiratory Distress Cardiovascular: Positive for: Regular Rate and Rhythm, Normal S1, S2 Abdomen: Negative for: Tenderness, Distention, Rebound, Guarding Upper Extremity: Positive for: Normal Inspection Lower Extremity: Positive for: Normal Inspection. Negative for: Edema Neurological: Positive for: Other (left leg with sudden kicks) Skin: Positive for: Warm, Dry, Normal Color Psychiatric: Positive for: Alert - Medications Active Medications: Active Medications Generic Name Dose Route Start Last Admin Trade Name Freq PRN Reason Stop Dose Admin Enoxaparin Sodium 40 mg 11/04/18 10:00 11/12/18 10:02 Lovenox SC 40 mg DAILY HUMBERTO Administration Famotidine 20 mg 11/11/18 10:00 11/12/18 10:03 Pepcid GT 20 mg Q12 HUMBERTO Administration Vancomycin HCl 1.25 gm/ Sodium 250 mls @ 120 mls/hr 11/09/18 10:00 11/12/18 10:04 Chloride IVPB 120 mls/hr Q24H HUMBERTO Administration Protocol Propofol 1,000 mg in 100 mls @ 1.716 mls/hr 11/09/18 09:06 11/12/18 10:01 Diprivan IV 14.56 mcg/kg/min .Q24H PRN 5 mls/hr TITRATE PER MD ORDER Administration Protocol 5 MCG/KG/MIN Piperacillin Sod/Tazobactam 100 mls @ 200 mls/hr 11/09/18 22:00 11/12/18 13:31 Sod 3.375 gm/ Sodium Chloride IVPB 200 mls/hr Q8 HUMBERTO Administration Protocol Voriconazole 200 mg/ Sodium 100 mls @ 100 mls/hr 11/10/18 02:00 11/12/18 13:29 Chloride IVPB 100 mls/hr Q12H HUMBERTO Administration Insulin Human Regular 0 unit 11/04/18 00:00 11/12/18 12:00 Novolin R SC Not Given Q6H HUMBERTO Protocol Levetiracetam 500 mg 11/03/18 21:00 11/12/18 10:03 Keppra PO 500 mg BID HUMBERTO Administration Valproate Sodium 250 mg 11/03/18 21:00 11/12/18 10:03 Depakene Oral Soln PO 250 mg BID HUMBERTO Administration - Patient Studies Lab Studies: Microbiology Studies 11/11/18 17:27 Gram Stain - Final Trachasp Sputum Culture - Preliminary Gram Negative Drew 11/08/18 18:53 Fungal Culture - Preliminary Endotracheal Lab Studies 11/12/18 11/12/18 11/12/18 Range/Units 06:21 06:21 06:16 WBC 10.6 (4.8-10.8) K/uL RBC 3.68 L (4.40-5.90) Mil/uL Hgb 9.2 L (12.0-18.0) g/dL Hct 29.3 L (35.0-51.0) % MCV 79.4 L (80.0-94.0) fL MCH 24.8 L (27.0-31.0) pg MCHC 31.3 L (33.0-37.0) g/dL RDW 20.0 H (11.5-14.5) % Plt Count 270 (130-400) K/uL MPV 9.4 (7.2-11.7) fL Neut % (Auto) 65.7 (50.0-75.0) % Lymph % (Auto) 28.7 (20.0-40.0) % Izard % (Auto) 3.8 (0.0-10.0) % Eos % (Auto) 1.3 (0.0-4.0) % Baso % (Auto) 0.5 (0.0-2.0) % Neut # (Auto) 7.0 (1.8-7.0) K/uL Lymph # (Auto) 3.1 (1.0-4.3) K/uL Izard # (Auto) 0.4 (0.0-0.8) K/uL Eos # (Auto) 0.1 (0.0-0.7) K/uL Baso # (Auto) 0.1 (0.0-0.2) K/uL Puncture Site pCO2 (35-45) mm/Hg pO2 (80-100) mm/Hg HCO3 (21-28) mmol/L ABG pH (7.35-7.45) ABG Total CO2 (22-28) mmol/L ABG O2 Saturation (95-98) % ABG Base Excess (-2.0-3.0) mmol/L ABG Hemoglobin (11.7-17.4) g/dL ABG Carboxyhemoglobin (0.5-1.5) % POC ABG HHb (Measured) (0.0-5.0) % ABG Methemoglobin (0.0-3.0) % Ruiz Test A-a O2 Difference mm/Hg Respiratory Index Hgb O2 Saturation (95.0-98.0) % Vent Mode Mechanical Rate FiO2 % Tidal Volume PEEP Sodium 139 (132-148) mmol/L Potassium 3.9 (3.6-5.2) mmol/L Chloride 106 (98-107) mmol/L Carbon Dioxide 29 (22-30) mmol/L Anion Gap 8 L (10-20) BUN 13 (9-20) mg/dL Creatinine 0.9 (0.8-1.5) mg/dL Est GFR ( Amer) > 60 Est GFR (Non-Af Amer) > 60 POC Glucose (mg/dL) 89 (65-110) mg/dL Random Glucose 96 D (75-110) mg/dL Calcium 7.7 L (8.6-10.4) mg/dl Phosphorus 2.6 (2.5-4.5) mg/dL Magnesium 2.1 (1.6-2.3) mg/dL Total Bilirubin 0.2 (0.2-1.3) mg/dL AST 24 (17-59) U/L ALT 18 L (21-72) U/L Alkaline Phosphatase 187 H (38-126) U/L Total Protein 6.9 (6.3-8.3) g/dL Albumin 2.4 L (3.5-5.0) g/dL Globulin 4.5 H (2.2-3.9) gm/dL Albumin/Globulin Ratio 0.5 L (1.0-2.1) 11/12/18 11/12/18 11/11/18 Range/Units 05:28 00:10 17:38 WBC (4.8-10.8) K/uL RBC (4.40-5.90) Mil/uL Hgb (12.0-18.0) g/dL Hct (35.0-51.0) % MCV (80.0-94.0) fL MCH (27.0-31.0) pg MCHC (33.0-37.0) g/dL RDW (11.5-14.5) % Plt Count (130-400) K/uL MPV (7.2-11.7) fL Neut % (Auto) (50.0-75.0) % Lymph % (Auto) (20.0-40.0) % Izard % (Auto) (0.0-10.0) % Eos % (Auto) (0.0-4.0) % Baso % (Auto) (0.0-2.0) % Neut # (Auto) (1.8-7.0) K/uL Lymph # (Auto) (1.0-4.3) K/uL Izard # (Auto) (0.0-0.8) K/uL Eos # (Auto) (0.0-0.7) K/uL Baso # (Auto) (0.0-0.2) K/uL Puncture Site L rad pCO2 42 (35-45) mm/Hg pO2 83 (80-100) mm/Hg HCO3 28.0 (21-28) mmol/L ABG pH 7.44 (7.35-7.45) ABG Total CO2 29.8 H (22-28) mmol/L ABG O2 Saturation 98.4 H (95-98) % ABG Base Excess 3.9 H (-2.0-3.0) mmol/L ABG Hemoglobin 9.4 L (11.7-17.4) g/dL ABG Carboxyhemoglobin 2.4 H (0.5-1.5) % POC ABG HHb (Measured) 1.6 (0.0-5.0) % ABG Methemoglobin 0.1 (0.0-3.0) % Ruiz Test Pos A-a O2 Difference 150.0 mm/Hg Respiratory Index 1.8 Hgb O2 Saturation 95.8 (95.0-98.0) % Vent Mode Prvc Mechanical Rate 16 FiO2 40.0 % Tidal Volume 450 PEEP 5 Sodium (132-148) mmol/L Potassium (3.6-5.2) mmol/L Chloride (98-107) mmol/L Carbon Dioxide (22-30) mmol/L Anion Gap (10-20) BUN (9-20) mg/dL Creatinine (0.8-1.5) mg/dL Est GFR ( Amer) Est GFR (Non-Af Amer) POC Glucose (mg/dL) 76 86 (65-110) mg/dL Random Glucose (75-110) mg/dL Calcium (8.6-10.4) mg/dl Phosphorus (2.5-4.5) mg/dL Magnesium (1.6-2.3) mg/dL Total Bilirubin (0.2-1.3) mg/dL AST (17-59) U/L ALT (21-72) U/L Alkaline Phosphatase (38-126) U/L Total Protein (6.3-8.3) g/dL Albumin (3.5-5.0) g/dL Globulin (2.2-3.9) gm/dL Albumin/Globulin Ratio (1.0-2.1) Laboratory Results - last 24 hr 11/11/18 11/12/1818 17:38 00:10 05:28 WBC RBC Hgb Hct MCV MCH MCHC RDW Plt Count MPV Neut % (Auto) Lymph % (Auto) Izard % (Auto) Eos % (Auto) Baso % (Auto) Neut # (Auto) Lymph # (Auto) Izard # (Auto) Eos # (Auto) Baso # (Auto) Puncture Site L rad pCO2 42 pO2 83 HCO3 28.0 ABG pH 7.44 ABG Total CO2 29.8 H ABG O2 Saturation 98.4 H ABG Base Excess 3.9 H ABG Hemoglobin 9.4 L ABG Carboxyhemoglobin 2.4 H POC ABG HHb (Measured) 1.6 ABG Methemoglobin 0.1 Ruiz Test Pos A-a O2 Difference 150.0 Respiratory Index 1.8 Hgb O2 Saturation 95.8 Vent Mode Prvc Mechanical Rate 16 FiO2 40.0 Tidal Volume 450 PEEP 5 Sodium Potassium Chloride Carbon Dioxide Anion Gap BUN Creatinine Est GFR ( Amer) Est GFR (Non-Af Amer) POC Glucose (mg/dL) 86 76 Random Glucose Calcium Phosphorus Magnesium Total Bilirubin AST ALT Alkaline Phosphatase Total Protein Albumin Globulin Albumin/Globulin Ratio 11/12/18 11/12/18 11/12/18 06:16 06:21 06:21 WBC 10.6 RBC 3.68 L Hgb 9.2 L Hct 29.3 L MCV 79.4 L MCH 24.8 L MCHC 31.3 L RDW 20.0 H Plt Count 270 MPV 9.4 Neut % (Auto) 65.7 Lymph % (Auto) 28.7 Izard % (Auto) 3.8 Eos % (Auto) 1.3 Baso % (Auto) 0.5 Neut # (Auto) 7.0 Lymph # (Auto) 3.1 Izard # (Auto) 0.4 Eos # (Auto) 0.1 Baso # (Auto) 0.1 Puncture Site pCO2 pO2 HCO3 ABG pH ABG Total CO2 ABG O2 Saturation ABG Base Excess ABG Hemoglobin ABG Carboxyhemoglobin POC ABG HHb (Measured) ABG Methemoglobin Ruiz Test A-a O2 Difference Respiratory Index Hgb O2 Saturation Vent Mode Mechanical Rate FiO2 Tidal Volume PEEP Sodium 139 Potassium 3.9 Chloride 106 Carbon Dioxide 29 Anion Gap 8 L BUN 13 Creatinine 0.9 Est GFR ( Amer) > 60 Est GFR (Non-Af Amer) > 60 POC Glucose (mg/dL) 89 Random Glucose 96 D Calcium 7.7 L Phosphorus 2.6 Magnesium 2.1 Total Bilirubin 0.2 AST 24 ALT 18 L Alkaline Phosphatase 187 H Total Protein 6.9 Albumin 2.4 L Globulin 4.5 H Albumin/Globulin Ratio 0.5 L Radiology Impressions: Radiology Impressions Chest X-Ray 11/12/18 07:00 IMPRESSION: Stable bilateral reticular infiltrates. No interval pleural effusion pneumothorax or definite alveolitis. Fingerstick Blood Sugar Results: 92 Assessment/Plan - Assessment and Plan (Free Text) Assessment: 63 y/o male with multiple medical problems including PMHx of seizures, DM, CVA, and dementia with respiratory failure. Neuro -seizures: continue with keppra and valproate -history of CVA, paraplegia, and dementia -d/eleno precedex 11/08 CV -ECHO completed 11/05. Shows thickened aortic valve compared to 12/06. ID, Dr. Fine, recs cardiology consult to r/o endocarditis and OLEG. -cardiology, Dr. Anderson, consult ordered - Dr. Omar Urbina's chemical dependency counselor preference -OLEG ordered Pulm -admitted with hypercapnic respiratory failure -daily CXR and ABG -PRVC 450/50/20/5 GI -no active issues Renal -renal insufficiency -IVF - LR at 100 mL/hr d/eleno due to improved renal condition ID -CXR: bilateral pulmonary infiltrates, hx aspiration PNA -monitor VS and mental status - patient hemodynamically stable currently -zosyn started 11/04 -vanc started 10am on 11/05 -vanc trough ordered for 11/08 at 9:30am (30 min before 4th dose) -voriconazole given due to past cx positive for asperigillosis -11/05: final blood culture - s. aureus and coagulase negative staph -11/11: trach asp with gram positive cocci -ID, Dr. Fine, following. Appreciate recs. Endo -DM: ISS, hypoglycemia protocol Heme -anemia -f/u H/H daily Derm -environmental services attendant recs: prevalon boots, cavilon skin prep, frequent repositioning ppx: DVT: lovenox 40 mg sc daily GI: pepcid 20 mg IV q12h diet: orogastric tube feeding, glucerna Dispo: Will need to discuss patient prognosis at length with family after the holidays. Patient's daughter out of town until after new year. Her contact information is on one of my physician communication notes and in the chart. Palliative care ordered 11/12. case discussed with Dr. Michelet Stanton PGY1 <Jose Ramon Tafoya - Last Filed: 11/12/18 16:47> CCU Subjective - Physician Review Critical Care Time Spent (in minutes): 40 CCU Objective - Vital Signs / Intake & Output Vital Signs (Last 4 hours): Vital Signs Pulse Resp BP Pulse Ox 11/12/18 15:01 75 23 91/52 L 94 L 11/12/18 15:00 76 21 93 L 11/12/18 14:01 77 25 H 94/46 L 86 L 11/12/18 14:00 75 25 H 87 L 11/12/18 13:00 77 37 H 136/67 94 L Intake and Output (Last 8hrs): Intake & Output 11/12/18 11/12/18 11/12/18 06:59 14:59 22:59 Intake Total 560 459 45 Output Total 370 960 100 Balance 190 -501 -55 Weight 117 lb 12.8 oz Intake: IV 99 Intake, IV Amount 240 40 5 Right Medial Port 40 40 5 Internal Jugular Right Proximal Port 200 Internal Jugular Tube Feeding 320 320 40 Output: Urine 370 960 100 Urethral (Nelson) 370 960 100 Other: # Bowel Movements 0 1 1 - Medications Active Medications: Active Medications Generic Name Dose Route Start Last Admin Trade Name Freq PRN Reason Stop Dose Admin Enoxaparin Sodium 40 mg 11/04/18 10:00 11/12/18 10:02 Lovenox SC 40 mg DAILY HUMBERTO Administration Famotidine 20 mg 11/11/18 10:00 11/12/18 10:03 Pepcid GT 20 mg Q12 HUMBERTO Administration Vancomycin HCl 1.25 gm/ Sodium 250 mls @ 120 mls/hr 11/09/18 10:00 11/12/18 10:04 Chloride IVPB 120 mls/hr Q24H HUMBERTO Administration Protocol Propofol 1,000 mg in 100 mls @ 1.716 mls/hr 11/09/18 09:06 11/12/18 10:01 Diprivan IV 14.56 mcg/kg/min .Q24H PRN 5 mls/hr TITRATE PER MD ORDER Administration Protocol 5 MCG/KG/MIN Piperacillin Sod/Tazobactam 100 mls @ 200 mls/hr 11/09/18 22:00 11/12/18 13:31 Sod 3.375 gm/ Sodium Chloride IVPB 200 mls/hr Q8 HUMBERTO Administration Protocol Voriconazole 200 mg/ Sodium 100 mls @ 100 mls/hr 11/10/18 02:00 11/12/18 13:29 Chloride IVPB 100 mls/hr Q12H HUMBERTO Administration Insulin Human Regular 0 unit 11/04/18 00:00 11/12/18 12:00 Novolin R SC Not Given Q6H HUMBERTO Protocol Levetiracetam 500 mg 11/03/18 21:00 11/12/18 10:03 Keppra PO 500 mg BID HUMBERTO Administration Valproate Sodium 250 mg 11/03/18 21:00 11/12/18 10:03 Depakene Oral Soln PO 250 mg BID HUMBERTO Administration - Patient Studies Lab Studies: Microbiology Studies 11/11/18 17:27 Gram Stain - Final Trachasp Sputum Culture - Preliminary Gram Negative Drew 11/08/18 18:53 Fungal Culture - Preliminary Endotracheal Lab Studies 11/12/18 11/12/18 11/12/18 Range/Units 06:21 06:21 06:16 WBC 10.6 (4.8-10.8) K/uL RBC 3.68 L (4.40-5.90) Mil/uL Hgb 9.2 L (12.0-18.0) g/dL Hct 29.3 L (35.0-51.0) % MCV 79.4 L (80.0-94.0) fL MCH 24.8 L (27.0-31.0) pg MCHC 31.3 L (33.0-37.0) g/dL RDW 20.0 H (11.5-14.5) % Plt Count 270 (130-400) K/uL MPV 9.4 (7.2-11.7) fL Neut % (Auto) 65.7 (50.0-75.0) % Lymph % (Auto) 28.7 (20.0-40.0) % Izard % (Auto) 3.8 (0.0-10.0) % Eos % (Auto) 1.3 (0.0-4.0) % Baso % (Auto) 0.5 (0.0-2.0) % Neut # (Auto) 7.0 (1.8-7.0) K/uL Lymph # (Auto) 3.1 (1.0-4.3) K/uL Izard # (Auto) 0.4 (0.0-0.8) K/uL Eos # (Auto) 0.1 (0.0-0.7) K/uL Baso # (Auto) 0.1 (0.0-0.2) K/uL Puncture Site pCO2 (35-45) mm/Hg pO2 (80-100) mm/Hg HCO3 (21-28) mmol/L ABG pH (7.35-7.45) ABG Total CO2 (22-28) mmol/L ABG O2 Saturation (95-98) % ABG Base Excess (-2.0-3.0) mmol/L ABG Hemoglobin (11.7-17.4) g/dL ABG Carboxyhemoglobin (0.5-1.5) % POC ABG HHb (Measured) (0.0-5.0) % ABG Methemoglobin (0.0-3.0) % Ruiz Test A-a O2 Difference mm/Hg Respiratory Index Hgb O2 Saturation (95.0-98.0) % Vent Mode Mechanical Rate FiO2 % Tidal Volume PEEP Sodium 139 (132-148) mmol/L Potassium 3.9 (3.6-5.2) mmol/L Chloride 106 (98-107) mmol/L Carbon Dioxide 29 (22-30) mmol/L Anion Gap 8 L (10-20) BUN 13 (9-20) mg/dL Creatinine 0.9 (0.8-1.5) mg/dL Est GFR ( Amer) > 60 Est GFR (Non-Af Amer) > 60 POC Glucose (mg/dL) 89 (65-110) mg/dL Random Glucose 96 D (75-110) mg/dL Calcium 7.7 L (8.6-10.4) mg/dl Phosphorus 2.6 (2.5-4.5) mg/dL Magnesium 2.1 (1.6-2.3) mg/dL Total Bilirubin 0.2 (0.2-1.3) mg/dL AST 24 (17-59) U/L ALT 18 L (21-72) U/L Alkaline Phosphatase 187 H (38-126) U/L Total Protein 6.9 (6.3-8.3) g/dL Albumin 2.4 L (3.5-5.0) g/dL Globulin 4.5 H (2.2-3.9) gm/dL Albumin/Globulin Ratio 0.5 L (1.0-2.1) 11/12/18 11/12/18 11/11/18 Range/Units 05:28 00:10 17:38 WBC (4.8-10.8) K/uL RBC (4.40-5.90) Mil/uL Hgb (12.0-18.0) g/dL Hct (35.0-51.0) % MCV (80.0-94.0) fL MCH (27.0-31.0) pg MCHC (33.0-37.0) g/dL RDW (11.5-14.5) % Plt Count (130-400) K/uL MPV (7.2-11.7) fL Neut % (Auto) (50.0-75.0) % Lymph % (Auto) (20.0-40.0) % Izard % (Auto) (0.0-10.0) % Eos % (Auto) (0.0-4.0) % Baso % (Auto) (0.0-2.0) % Neut # (Auto) (1.8-7.0) K/uL Lymph # (Auto) (1.0-4.3) K/uL Izard # (Auto) (0.0-0.8) K/uL Eos # (Auto) (0.0-0.7) K/uL Baso # (Auto) (0.0-0.2) K/uL Puncture Site L rad pCO2 42 (35-45) mm/Hg pO2 83 (80-100) mm/Hg HCO3 28.0 (21-28) mmol/L ABG pH 7.44 (7.35-7.45) ABG Total CO2 29.8 H (22-28) mmol/L ABG O2 Saturation 98.4 H (95-98) % ABG Base Excess 3.9 H (-2.0-3.0) mmol/L ABG Hemoglobin 9.4 L (11.7-17.4) g/dL ABG Carboxyhemoglobin 2.4 H (0.5-1.5) % POC ABG HHb (Measured) 1.6 (0.0-5.0) % ABG Methemoglobin 0.1 (0.0-3.0) % Ruiz Test Pos A-a O2 Difference 150.0 mm/Hg Respiratory Index 1.8 Hgb O2 Saturation 95.8 (95.0-98.0) % Vent Mode Prvc Mechanical Rate 16 FiO2 40.0 % Tidal Volume 450 PEEP 5 Sodium (132-148) mmol/L Potassium (3.6-5.2) mmol/L Chloride (98-107) mmol/L Carbon Dioxide (22-30) mmol/L Anion Gap (10-20) BUN (9-20) mg/dL Creatinine (0.8-1.5) mg/dL Est GFR ( Amer) Est GFR (Non-Af Amer) POC Glucose (mg/dL) 76 86 (65-110) mg/dL Random Glucose (75-110) mg/dL Calcium (8.6-10.4) mg/dl Phosphorus (2.5-4.5) mg/dL Magnesium (1.6-2.3) mg/dL Total Bilirubin (0.2-1.3) mg/dL AST (17-59) U/L ALT (21-72) U/L Alkaline Phosphatase (38-126) U/L Total Protein (6.3-8.3) g/dL Albumin (3.5-5.0) g/dL Globulin (2.2-3.9) gm/dL Albumin/Globulin Ratio (1.0-2.1) Laboratory Results - last 24 hr 11/11/18 11/12/18 11/12/18 17:38 00:10 05:28 WBC RBC Hgb Hct MCV MCH MCHC RDW Plt Count MPV Neut % (Auto) Lymph % (Auto) Izard % (Auto) Eos % (Auto) Baso % (Auto) Neut # (Auto) Lymph # (Auto) Izard # (Auto) Eos # (Auto) Baso # (Auto) Puncture Site L rad pCO2 42 pO2 83 HCO3 28.0 ABG pH 7.44 ABG Total CO2 29.8 H ABG O2 Saturation 98.4 H ABG Base Excess 3.9 H ABG Hemoglobin 9.4 L ABG Carboxyhemoglobin 2.4 H POC ABG HHb (Measured) 1.6 ABG Methemoglobin 0.1 Ruiz Test Pos A-a O2 Difference 150.0 Respiratory Index 1.8 Hgb O2 Saturation 95.8 Vent Mode Prvc Mechanical Rate 16 FiO2 40.0 Tidal Volume 450 PEEP 5 Sodium Potassium Chloride Carbon Dioxide Anion Gap BUN Creatinine Est GFR ( Amer) Est GFR (Non-Af Amer) POC Glucose (mg/dL) 86 76 Random Glucose Calcium Phosphorus Magnesium Total Bilirubin AST ALT Alkaline Phosphatase Total Protein Albumin Globulin Albumin/Globulin Ratio 11/12/18 11/12/18 11/12/18 06:16 06:21 06:21 WBC 10.6 RBC 3.68 L Hgb 9.2 L Hct 29.3 L MCV 79.4 L MCH 24.8 L MCHC 31.3 L RDW 20.0 H Plt Count 270 MPV 9.4 Neut % (Auto) 65.7 Lymph % (Auto) 28.7 Izard % (Auto) 3.8 Eos % (Auto) 1.3 Baso % (Auto) 0.5 Neut # (Auto) 7.0 Lymph # (Auto) 3.1 Izard # (Auto) 0.4 Eos # (Auto) 0.1 Baso # (Auto) 0.1 Puncture Site pCO2 pO2 HCO3 ABG pH ABG Total CO2 ABG O2 Saturation ABG Base Excess ABG Hemoglobin ABG Carboxyhemoglobin POC ABG HHb (Measured) ABG Methemoglobin Ruiz Test A-a O2 Difference Respiratory Index Hgb O2 Saturation Vent Mode Mechanical Rate FiO2 Tidal Volume PEEP Sodium 139 Potassium 3.9 Chloride 106 Carbon Dioxide 29 Anion Gap 8 L BUN 13 Creatinine 0.9 Est GFR ( Amer) > 60 Est GFR (Non-Af Amer) > 60 POC Glucose (mg/dL) 89 Random Glucose 96 D Calcium 7.7 L Phosphorus 2.6 Magnesium 2.1 Total Bilirubin 0.2 AST 24 ALT 18 L Alkaline Phosphatase 187 H Total Protein 6.9 Albumin 2.4 L Globulin 4.5 H Albumin/Globulin Ratio 0.5 L Radiology Impressions: Radiology Impressions Chest X-Ray 11/12/18 07:00 IMPRESSION: Stable bilateral reticular infiltrates. No interval pleural effusion pneumothorax or definite alveolitis. Assessment/Plan (1) Pneumonia Current Visit: Yes Status: Acute (2) Sepsis Current Visit: Yes Status: Acute (3) Acute respiratory failure with hypoxemia Current Visit: No Status: Acute Attending/Attestation - Attestation I have personally seen and examined this patient.: Yes I have fully participated in the care of the patient.: Yes I have reviewed all pertinent clinical information: Yes Notes (Text): 11/12/18 16:46 Patient seen and examined Intubated on ventilatory support Patient not tolerating weaning Continue antibiotics Consider tracheostomy and PEG
--- NOTE | 2018-11-12 20:49 | CP.PCM.PN ---
Subjective - Date & Time of Evaluation Date of Evaluation: 11/12/18 Time of Evaluation: 12:00 - Subjective Subjective: clinically same Objective - Vital Signs/Intake and Output Vital Signs (last 24 hours): Temp Pulse Resp BP Pulse Ox 97.2 F L 66 22 135/59 L 97 11/12/18 20:00 11/12/18 20:00 11/12/18 20:00 11/12/18 20:04 11/12/18 20:00 Intake and Output: 11/12/18 11/13/18 18:59 06:59 Intake Total 689 190 Output Total 1580 125 Balance -891 65 - Medications Medications: Current Medications Enoxaparin Sodium (Lovenox) 40 mg SC DAILY [facility] Last Admin: 11/12/18 10:02 Dose: 40 mg Famotidine (Pepcid) 20 mg GT Q12 HUMBERTO Last Admin: 11/12/18 10:03 Dose: 20 mg Vancomycin HCl 1.25 gm/ Sodium (Chloride) 250 mls @ 120 mls/hr IVPB Q24H HUMBERTO; Protocol Last Admin: 11/12/18 10:04 Dose: 120 mls/hr Propofol (Diprivan) 1,000 mg in 100 mls @ 1.716 mls/hr IV .Q24H PRN; Protocol PRN Reason: TITRATE PER MD ORDER Last Admin: 11/12/18 10:01 Dose: 14.56 mcg/kg/min, 5 mls/hr Piperacillin Sod/Tazobactam (Sod 3.375 gm/ Sodium Chloride) 100 mls @ 200 mls/hr IVPB Q8 HUMBERTO; Protocol Last Admin: 11/12/18 13:31 Dose: 200 mls/hr Voriconazole 200 mg/ Sodium (Chloride) 100 mls @ 100 mls/hr IVPB Q12H HUMBERTO Last Admin: 11/12/18 13:29 Dose: 100 mls/hr Insulin Human Regular (Novolin R) 0 unit SC Q6H HUMBERTO; Protocol Last Admin: 11/12/18 18:36 Dose: Not Given Levetiracetam (Keppra) 500 mg PO BID [facility] Last Admin: 11/12/18 17:15 Dose: 500 mg Valproate Sodium (Depakene Oral Soln) 250 mg PO BID [facility] Last Admin: 11/12/18 17:15 Dose: 250 mg - Labs Labs: 11/12/18 06:21 11/12/18 06:21 PT 18.1 SECONDS (9.7-12.2) H 11/03/18 16:59 INR 1.7 11/03/18 16:59 APTT 46 SECONDS (21-34) H 11/03/18 16:59 - Constitutional Appears: Well - Head Exam Head Exam: ATRAUMATIC, NORMAL INSPECTION, NORMOCEPHALIC - Eye Exam Eye Exam: EOMI, Normal appearance, PERRL Pupil Exam: NORMAL ACCOMODATION, PERRL - ENT Exam ENT Exam: Mucous Membranes Moist, Normal Exam - Neck Exam Neck Exam: Full ROM, Normal Inspection. absent: Lymphadenopathy - Respiratory Exam Respiratory Exam: Decreased Breath Sounds - Cardiovascular Exam Cardiovascular Exam: REGULAR RHYTHM, +S1, +S2 - GI/Abdominal Exam GI & Abdominal Exam: Soft, Diminished Bowel Sounds - Rectal Exam Rectal Exam: Deferred
[2018-11-13] MEDS: (Novolin R) Insulin Human Regular 100 units/ml vial SC SCH ×3 (00:46→12:00)
[2018-11-13] MEDS: Propofol 10 mg/ml 1,000 MG/100 ML VIAL IV PRN (03:33)
[2018-11-13 06:06] LABS: ARTERIAL BLOOD GAS HCO3 28.4 mmol/L (21-28); ARTERIAL BLOOD GAS HEMOGLOBIN 8.7 g/dL (11.7-17.4); ARTERIAL BLOOD GAS O2 SAT 98.1 % (95-98); ARTERIAL BLOOD GAS PCO2 39 mm/Hg (35-45); ARTERIAL BLOOD GAS PH 7.47 (7.35-7.45); ARTERIAL BLOOD GAS PO2 78 mm/Hg (80-100); ARTERIAL BLOOD GAS TCO2 29.6 mmol/L (22-28)
[2018-11-13] MEDS: Piperacillin/Tazobact 3.375 GM in Sodium Chloride 0.9% 100 ML IVPB SCH (06:08)
[2018-11-13 06:21] LABS: BASO % 0.5 % (0.0-2.0); EOS # 0.1 K/uL (0.0-0.7); EOS % 1.5 % (0.0-4.0); LYMPH # 2.6 K/uL (1.0-4.3); LYMPH % 27.2 % (20.0-40.0); MEAN CORPUSCULAR HEMOGLOBIN 25.4 pg (27.0-31.0); MEAN CORPUSCULAR HGB CONC 32.2 g/dL (33.0-37.0); MEAN PLATELET VOLUME 9.4 fL (7.2-11.7); MONO # 0.4 K/uL (0.0-0.8); MONO % 4.7 % (0.0-10.0); NEUT # 6.3 K/uL (1.8-7.0); NEUT % 66.1 % (50.0-75.0); RBC 3.14 Mil/uL (4.40-5.90); RED CELL DISTRIBUTION WIDTH 20.2 % (11.5-14.5); WHITE BLOOD COUNT 9.5 K/uL (4.8-10.8)
[2018-11-13 06:32] LABS: ALB/GLOB RATIO 0.5 (1.0-2.1); ALBUMIN 2.2 g/dL (3.5-5.0); ALT/SGPT 17 U/L (21-72); AST/SGOT 17 U/L (17-59); BLOOD UREA NITROGEN 15 mg/dL (9-20); CALCIUM 7.7 mg/dl (8.6-10.4); GFR NON-AFRICAN AMERICAN > 60
--- NOTE | 2018-11-13 08:37 | CP.CCUPN ---
CCU Subjective - Physician Review Subjective (Free Text): ICU Progress Note for Dr. Tafoya Patient seen and examined at bedside this morning. Patient resting comfortably in bed, eyes closes, and unarousable. Due to patient condition, ROS unable to be obtained. 11/08/18 13:24 11/08/18 14:15 11/12/18 14:53 11/13/18 08:36 CCU Objective - Vital Signs / Intake & Output Vital Signs (Last 4 hours): Vital Signs Temp Pulse Resp BP Pulse Ox 11/13/18 08:00 98.3 F 70 38 H 143/68 96 11/13/18 07:00 72 20 132/68 96 11/13/18 06:01 151/78 H 11/13/18 05:00 73 22 139/64 97 Intake and Output (Last 8hrs): Intake & Output 11/12/18 11/13/18 11/13/18 22:59 06:59 14:59 Intake Total 710 560 90 Output Total 805 270 60 Balance -95 290 30 Weight 121 lb Intake: IV 100 Intake, IV Amount 140 140 10 Right Medial Port 40 40 10 Internal Jugular Right Proximal Port 100 100 Internal Jugular Tube Feeding 320 320 80 Other 250 Output: Urine 805 270 60 Urethral (Nelson) 805 270 60 Other: # Bowel Movements 0 0 0 - Physical Exam Physical Exam Limitations: Positive for: Other (Unarousable with noise and stimulation) Head: Positive for: Atraumatic, Normocephalic Conjunctiva: Positive for: Normal Respiratory/Chest: Positive for: Clear to Auscultation, Good Air Exchange. Negative for: Respiratory Distress Cardiovascular: Positive for: Regular Rate and Rhythm, Normal S1, S2 Abdomen: Negative for: Tenderness, Distention, Rebound, Guarding Upper Extremity: Positive for: Normal Inspection Lower Extremity: Positive for: Normal Inspection. Negative for: Edema Neurological: Positive for: Other (left leg with sudden kicks) Skin: Positive for: Warm, Dry, Normal Color - Medications Active Medications: Active Medications Generic Name Dose Route Start Last Admin Trade Name Freq PRN Reason Stop Dose Admin Enoxaparin Sodium 40 mg 11/04/18 10:00 11/12/18 10:02 Lovenox SC 40 mg DAILY HUMBERTO Administration Famotidine 20 mg 11/11/18 10:00 11/12/18 22:02 Pepcid GT 20 mg Q12 HUMBERTO Administration Vancomycin HCl 1.25 gm/ Sodium 250 mls @ 120 mls/hr 11/09/18 10:00 11/12/18 10:04 Chloride IVPB 120 mls/hr Q24H HUMBERTO Administration Protocol Propofol 1,000 mg in 100 mls @ 1.716 mls/hr 11/09/18 09:06 11/13/18 03:33 Diprivan IV 14.56 mcg/kg/min .Q24H PRN 5 mls/hr TITRATE PER MD ORDER Administration Protocol 5 MCG/KG/MIN Piperacillin Sod/Tazobactam 100 mls @ 200 mls/hr 11/09/18 22:00 11/13/18 06:08 Sod 3.375 gm/ Sodium Chloride IVPB 200 mls/hr Q8 HUMBERTO Administration Protocol Voriconazole 200 mg/ Sodium 100 mls @ 100 mls/hr 11/10/18 02:00 11/13/18 02:09 Chloride IVPB 100 mls/hr Q12H HUMBERTO Administration Insulin Human Regular 0 unit 11/04/18 00:00 11/13/18 06:09 Novolin R SC Not Given Q6H HUMBERTO Protocol Levetiracetam 500 mg 11/03/18 21:00 11/12/18 17:15 Keppra PO 500 mg BID HUMBERTO Administration Valproate Sodium 250 mg 11/03/18 21:00 11/12/18 17:15 Depakene Oral Soln PO 250 mg BID HUMBERTO Administration - Patient Studies Lab Studies: Microbiology Studies 11/11/18 17:27 Gram Stain - Final Trachasp Sputum Culture - Preliminary Gram Negative [facility] Lab Studies 11/13/18 11/13/18 11/13/18 Range/Units 06:13 06:13 05:45 WBC 9.5 (4.8-10.8) K/uL RBC 3.14 L (4.40-5.90) Mil/uL Hgb 8.0 L (12.0-18.0) g/dL Hct 24.8 L (35.0-51.0) % MCV 79.0 L (80.0-94.0) fL MCH 25.4 L (27.0-31.0) pg MCHC 32.2 L (33.0-37.0) g/dL RDW 20.2 H (11.5-14.5) % Plt Count 307 (130-400) K/uL MPV 9.4 (7.2-11.7) fL Neut % (Auto) 66.1 (50.0-75.0) % Lymph % (Auto) 27.2 (20.0-40.0) % [place] % (Auto) 4.7 (0.0-10.0) % Eos % (Auto) 1.5 (0.0-4.0) % Baso % (Auto) 0.5 (0.0-2.0) % Neut # (Auto) 6.3 (1.8-7.0) K/uL Lymph # (Auto) 2.6 (1.0-4.3) K/uL [place] # (Auto) 0.4 (0.0-0.8) K/uL Eos # (Auto) 0.1 (0.0-0.7) K/uL Baso # (Auto) 0.0 (0.0-0.2) K/uL Puncture Site L brac pCO2 39 (35-45) mm/Hg pO2 78 L (80-100) mm/Hg HCO3 28.4 H (21-28) mmol/L ABG pH 7.47 H (7.35-7.45) ABG Total CO2 29.6 H (22-28) mmol/L ABG O2 Saturation 98.1 H (95-98) % ABG Base Excess 4.4 H (-2.0-3.0) mmol/L ABG Hemoglobin 8.7 L (11.7-17.4) g/dL ABG Carboxyhemoglobin 2.3 H (0.5-1.5) % POC ABG HHb (Measured) 1.9 (0.0-5.0) % ABG Methemoglobin 0.2 (0.0-3.0) % Ruiz Test Na A-a O2 Difference 158.0 mm/Hg Respiratory Index 2.0 Hgb O2 Saturation 95.6 (95.0-98.0) % Vent Mode Prvc Mechanical Rate 16 FiO2 40.0 % Tidal Volume 450 PEEP 5 Sodium 136 (132-148) mmol/L Potassium 3.6 (3.6-5.2) mmol/L Chloride 104 (98-107) mmol/L Carbon Dioxide 30 (22-30) mmol/L Anion Gap 5 L (10-20) BUN 15 (9-20) mg/dL Creatinine 0.8 (0.8-1.5) mg/dL Est GFR ( Amer) > 60 Est GFR (Non-Af Amer) > 60 Random Glucose 102 (75-110) mg/dL Calcium 7.7 L (8.6-10.4) mg/dl Phosphorus 3.0 (2.5-4.5) mg/dL Magnesium 2.1 (1.6-2.3) mg/dL Total Bilirubin 0.2 (0.2-1.3) mg/dL AST 17 D (17-59) U/L ALT 17 L (21-72) U/L Alkaline Phosphatase 166 H (38-126) U/L Total Protein 6.4 (6.3-8.3) g/dL Albumin 2.2 L (3.5-5.0) g/dL Globulin 4.2 H (2.2-3.9) gm/dL Albumin/Globulin Ratio 0.5 L (1.0-2.1) Laboratory Results - last 24 hr 11/13/18 11/13/18 11/13/18 05:45 06:13 06:13 WBC 9.5 RBC 3.14 L Hgb 8.0 L Hct 24.8 L MCV 79.0 L MCH 25.4 L MCHC 32.2 L RDW 20.2 H Plt Count 307 MPV 9.4 Neut % (Auto) 66.1 Lymph % (Auto) 27.2 [place] % (Auto) 4.7 Eos % (Auto) 1.5 Baso % (Auto) 0.5 Neut # (Auto) 6.3 Lymph # (Auto) 2.6 [place] # (Auto) 0.4 Eos # (Auto) 0.1 Baso # (Auto) 0.0 Puncture Site L brac pCO2 39 pO2 78 L HCO3 28.4 H ABG pH 7.47 H ABG Total CO2 29.6 H ABG O2 Saturation 98.1 H ABG Base Excess 4.4 H ABG Hemoglobin 8.7 L ABG Carboxyhemoglobin 2.3 H POC ABG HHb (Measured) 1.9 ABG Methemoglobin 0.2 Ruiz Test Na A-a O2 Difference 158.0 Respiratory Index 2.0 Hgb O2 Saturation 95.6 Vent Mode Prvc Mechanical Rate 16 FiO2 40.0 Tidal Volume 450 PEEP 5 Sodium 136 Potassium 3.6 Chloride 104 Carbon Dioxide 30 Anion Gap 5 L BUN 15 Creatinine 0.8 Est GFR ( Amer) > 60 Est GFR (Non-Af Amer) > 60 Random Glucose 102 Calcium 7.7 L Phosphorus 3.0 Magnesium 2.1 Total Bilirubin 0.2 AST 17 D ALT 17 L Alkaline Phosphatase 166 H Total Protein 6.4 Albumin 2.2 L Globulin 4.2 H Albumin/Globulin Ratio 0.5 L Fingerstick Blood Sugar Results: 87
--- NOTE | 2018-11-13 08:40 | CP.CCUPN ---
<Francisca Stanton - Last Filed: 11/13/18 14:03> CCU Subjective - Physician Review Subjective (Free Text): ICU Progress Note for Dr. Tafoya Patient seen and examined at bedside this morning. Patient resting comfortably in bed, eyes opened, able to follow occasionally. Patient used his left hand (mittened) to point to his head. Due to patient condition, ROS unable to be obtained. 11/08/18 13:24 11/08/18 14:15 11/12/18 14:53 11/13/18 08:36 11/13/18 08:39 CCU Objective - Vital Signs / Intake & Output Vital Signs (Last 4 hours): Vital Signs Temp Pulse Resp BP Pulse Ox 11/13/18 08:00 98.3 F 70 38 H 143/68 96 11/13/18 07:00 72 20 132/68 96 11/13/18 06:01 151/78 H 11/13/18 05:00 73 22 139/64 97 Intake and Output (Last 8hrs): Intake & Output 11/12/18 11/13/18 11/13/18 22:59 06:59 14:59 Intake Total 710 560 90 Output Total 805 270 60 Balance -95 290 30 Weight 121 lb Intake: IV 100 Intake, IV Amount 140 140 10 Right Medial Port 40 40 10 Internal Jugular Right Proximal Port 100 100 Internal Jugular Tube Feeding 320 320 80 Other 250 Output: Urine 805 270 60 Urethral (Nelson) 805 270 60 Other: # Bowel Movements 0 0 0 - Physical Exam Head: Positive for: Atraumatic, Normocephalic Extroacular Muscles: Positive for: EOMI Conjunctiva: Positive for: Normal Respiratory/Chest: Positive for: Clear to Auscultation, Good Air Exchange. Negative for: Respiratory Distress Cardiovascular: Positive for: Regular Rate and Rhythm, Normal S1, S2 Abdomen: Negative for: Tenderness, Distention, Rebound, Guarding Upper Extremity: Positive for: Normal Inspection Lower Extremity: Positive for: Normal Inspection. Negative for: Edema Neurological: Positive for: Other (left leg with sudden kicks) Skin: Positive for: Warm, Dry, Normal Color Psychiatric: Positive for: Alert - Medications Active Medications: Active Medications Generic Name Dose Route Start Last Admin Trade Name Freq PRN Reason Stop Dose Admin Enoxaparin Sodium 40 mg 11/04/18 10:00 11/12/18 10:02 Lovenox SC 40 mg DAILY HUMBERTO Administration Famotidine 20 mg 11/11/18 10:00 11/12/18 22:02 Pepcid GT 20 mg Q12 HUMBERTO Administration Vancomycin HCl 1.25 gm/ Sodium 250 mls @ 120 mls/hr 11/09/18 10:00 11/12/18 10:04 Chloride IVPB 120 mls/hr Q24H HUMBERTO Administration Protocol Propofol 1,000 mg in 100 mls @ 1.716 mls/hr 11/09/18 09:06 11/13/18 03:33 Diprivan IV 14.56 mcg/kg/min .Q24H PRN 5 mls/hr TITRATE PER MD ORDER Administration Protocol 5 MCG/KG/MIN Piperacillin Sod/Tazobactam 100 mls @ 200 mls/hr 11/09/18 22:00 11/13/18 06:08 Sod 3.375 gm/ Sodium Chloride IVPB 200 mls/hr Q8 HUMBERTO Administration Protocol Voriconazole 200 mg/ Sodium 100 mls @ 100 mls/hr 11/10/18 02:00 11/13/18 02:09 Chloride IVPB 100 mls/hr Q12H HUMBERTO Administration Insulin Human Regular 0 unit 11/04/18 00:00 11/13/18 06:09 Novolin R SC Not Given Q6H HUMBERTO Protocol Levetiracetam 500 mg 11/03/18 21:00 11/12/18 17:15 Keppra PO 500 mg BID HUMBERTO Administration Valproate Sodium 250 mg 11/03/18 21:00 11/12/18 17:15 Depakene Oral Soln PO 250 mg BID HUMBERTO Administration - Patient Studies Lab Studies: Microbiology Studies 11/11/18 17:27 Gram Stain - Final Trachasp Sputum Culture - Preliminary Gram Negative Drew Lab Studies 11/13/18 11/13/18 11/13/18 Range/Units 06:13 06:13 05:45 WBC 9.5 (4.8-10.8) K/uL RBC 3.14 L (4.40-5.90) Mil/uL Hgb 8.0 L (12.0-18.0) g/dL Hct 24.8 L (35.0-51.0) % MCV 79.0 L (80.0-94.0) fL MCH 25.4 L (27.0-31.0) pg MCHC 32.2 L (33.0-37.0) g/dL RDW 20.2 H (11.5-14.5) % Plt Count 307 (130-400) K/uL MPV 9.4 (7.2-11.7) fL Neut % (Auto) 66.1 (50.0-75.0) % Lymph % (Auto) 27.2 (20.0-40.0) % [place] % (Auto) 4.7 (0.0-10.0) % Eos % (Auto) 1.5 (0.0-4.0) % Baso % (Auto) 0.5 (0.0-2.0) % Neut # (Auto) 6.3 (1.8-7.0) K/uL Lymph # (Auto) 2.6 (1.0-4.3) K/uL [place] # (Auto) 0.4 (0.0-0.8) K/uL Eos # (Auto) 0.1 (0.0-0.7) K/uL Baso # (Auto) 0.0 (0.0-0.2) K/uL Puncture Site L brac pCO2 39 (35-45) mm/Hg pO2 78 L (80-100) mm/Hg HCO3 28.4 H (21-28) mmol/L ABG pH 7.47 H (7.35-7.45) ABG Total CO2 29.6 H (22-28) mmol/L ABG O2 Saturation 98.1 H (95-98) % ABG Base Excess 4.4 H (-2.0-3.0) mmol/L ABG Hemoglobin 8.7 L (11.7-17.4) g/dL ABG Carboxyhemoglobin 2.3 H (0.5-1.5) % POC ABG HHb (Measured) 1.9 (0.0-5.0) % ABG Methemoglobin 0.2 (0.0-3.0) % Ruiz Test Na A-a O2 Difference 158.0 mm/Hg Respiratory Index 2.0 Hgb O2 Saturation 95.6 (95.0-98.0) % Vent Mode Prvc Mechanical Rate 16 FiO2 40.0 % Tidal Volume 450 PEEP 5 Sodium 136 (132-148) mmol/L Potassium 3.6 (3.6-5.2) mmol/L Chloride 104 (98-107) mmol/L Carbon Dioxide 30 (22-30) mmol/L Anion Gap 5 L (10-20) BUN 15 (9-20) mg/dL Creatinine 0.8 (0.8-1.5) mg/dL Est GFR ( Amer) > 60 Est GFR (Non-Af Amer) > 60 Random Glucose 102 (75-110) mg/dL Calcium 7.7 L (8.6-10.4) mg/dl Phosphorus 3.0 (2.5-4.5) mg/dL Magnesium 2.1 (1.6-2.3) mg/dL Total Bilirubin 0.2 (0.2-1.3) mg/dL AST 17 D (17-59) U/L ALT 17 L (21-72) U/L Alkaline Phosphatase 166 H (38-126) U/L Total Protein 6.4 (6.3-8.3) g/dL Albumin 2.2 L (3.5-5.0) g/dL Globulin 4.2 H (2.2-3.9) gm/dL Albumin/Globulin Ratio 0.5 L (1.0-2.1) Laboratory Results - last 24 hr 11/13/18 11/13/18 11/13/18 05:45 06:13 06:13 WBC 9.5 RBC 3.14 L Hgb 8.0 L Hct 24.8 L MCV 79.0 L MCH 25.4 L MCHC 32.2 L RDW 20.2 H Plt Count 307 MPV 9.4 Neut % (Auto) 66.1 Lymph % (Auto) 27.2 [place] % (Auto) 4.7 Eos % (Auto) 1.5 Baso % (Auto) 0.5 Neut # (Auto) 6.3 Lymph # (Auto) 2.6 [place] # (Auto) 0.4 Eos # (Auto) 0.1 Baso # (Auto) 0.0 Puncture Site L brac pCO2 39 pO2 78 L HCO3 28.4 H ABG pH 7.47 H ABG Total CO2 29.6 H ABG O2 Saturation 98.1 H ABG Base Excess 4.4 H ABG Hemoglobin 8.7 L ABG Carboxyhemoglobin 2.3 H POC ABG HHb (Measured) 1.9 ABG Methemoglobin 0.2 Ruiz Test Na A-a O2 Difference 158.0 Respiratory Index 2.0 Hgb O2 Saturation 95.6 Vent Mode Prvc Mechanical Rate 16 FiO2 40.0 Tidal Volume 450 PEEP 5 Sodium 136 Potassium 3.6 Chloride 104 Carbon Dioxide 30 Anion Gap 5 L BUN 15 Creatinine 0.8 Est GFR ( Amer) > 60 Est GFR (Non-Af Amer) > 60 Random Glucose 102 Calcium 7.7 L Phosphorus 3.0 Magnesium 2.1 Total Bilirubin 0.2 AST 17 D ALT 17 L Alkaline Phosphatase 166 H Total Protein 6.4 Albumin 2.2 L Globulin 4.2 H Albumin/Globulin Ratio 0.5 L Fingerstick Blood Sugar Results: 87 Review of Systems - Review of Systems Systems not reviewed;Unavailable: Intubated Assessment/Plan - Assessment and Plan (Free Text) Assessment: 63 y/o male with multiple medical problems including PMHx of seizures, DM, CVA, and dementia with respiratory failure. Neuro -seizures: continue with keppra and valproate -history of CVA, paraplegia, and dementia -not on precedex CV -ECHO completed 11/05. Shows thickened aortic valve compared to 12/06. ID, Dr. Fine, recs cardiology consult to r/o endocarditis and OLEG. -cardiology, Dr. Anderson, consult ordered - Dr. Omar Urbina's chemistry technologist preference -OLEG ordered Pulm -admitted with hypercapnic respiratory failure -daily CXR and ABG -PRVC 450/50/20/5 -plan for tracheostomy 11/14 per surgery note however currently need official consent from family, who are all out of town. Pending telephone consent by surgical brace maker GI -no active issues Renal -renal insufficiency -IVF - LR at 100 mL/hr d/eleno due to improved renal condition ID -CXR: bilateral pulmonary infiltrates, hx aspiration PNA -monitor VS and mental status - patient hemodynamically stable currently -11/11: trach asp grew acinobacter baumanii -> contact precautions ordered and abx changed by Dr. Fine as the following: --zosyn started 11/04 and d/eleno 11/13 -> ceftazidime/avibactam started 11/13 - --vanc started 10am on 11/05 --voriconazole given due to past cx positive for asperigillosis, started 11/10 -11/05: final blood culture - s. aureus and coagulase negative staph -ID, Dr. Fine, following. Appreciate recs. Endo -DM: ISS, hypoglycemia protocol Heme -chronic anemia -f/u H/H daily Derm -speech assistant recs: prevalon boots, cavilon skin prep, frequent repositioning ppx: DVT: lovenox 40 mg sc daily GI: pepcid 20 mg IV q12h diet: orogastric tube feeding, glucerna Dispo: Will need to discuss patient prognosis at length with family. Suggestion for family meeting when family in town after the new year. Palliative care aware of case. case discussed with Dr. Michelet Stanton PGY1 <Jose Ramon Tafoya S - Last Filed: 11/13/18 16:39> CCU Subjective - Physician Review Critical Care Time Spent (in minutes): 40 CCU Objective - Vital Signs / Intake & Output Vital Signs (Last 4 hours): Vital Signs Pulse Resp BP Pulse Ox 11/13/18 13:40 61 18 123/59 L 96 11/13/18 12:40 69 35 H 122/58 L 96 Intake and Output (Last 8hrs): Intake & Output 11/13/18 11/13/18 11/13/18 06:59 14:59 22:59 Intake Total 560 900 Output Total 270 650 Balance 290 250 Weight 121 lb Intake: IV 100 Intake, IV Amount 140 480 Right Medial Port 40 40 Internal Jugular Right Proximal Port 100 440 Internal Jugular Tube Feeding 320 320 Other 100 Output: Urine 270 650 Urethral (Nelson) 270 650 Other: # Bowel Movements 0 1 - Medications Active Medications: Active Medications Generic Name Dose Route Start Last Admin Trade Name Freq PRN Reason Stop Dose Admin Enoxaparin Sodium 40 mg 11/04/18 10:00 11/13/18 09:48 Lovenox SC 40 mg DAILY HUMBERTO Administration Famotidine 20 mg 11/11/18 10:00 11/13/18 09:48 Pepcid GT 20 mg Q12 HUMBERTO Administration Propofol 1,000 mg in 100 mls @ 1.716 mls/hr 11/09/18 09:06 11/13/18 03:33 Diprivan IV 14.56 mcg/kg/min .Q24H PRN 5 mls/hr TITRATE PER MD ORDER Administration Protocol 5 MCG/KG/MIN Voriconazole 200 mg/ Sodium 100 mls @ 100 mls/hr 11/10/18 02:00 11/13/18 14:21 Chloride IVPB 100 mls/hr Q12H HUMBERTO Administration Ceftazidime/Avibactam 2.5 gm/ 100 mls @ 50 mls/hr 11/13/18 12:00 11/13/18 12:21 Sodium Chloride IV 50 mls/hr Q8H HUMBERTO Administration Protocol Levetiracetam 500 mg 11/03/18 21:00 11/13/18 09:48 Keppra PO 500 mg BID HUMBERTO Administration Tamsulosin HCl 0.4 mg 11/13/18 10:00 Flomax PO DAILY HUMBERTO Valproate Sodium 250 mg 11/03/18 21:00 11/13/18 09:48 Depakene Oral Soln PO 250 mg BID HUMBERTO Administration - Patient Studies Lab Studies: Microbiology Studies 11/11/18 17:27 Gram Stain - Final Trachasp Sputum Culture - Preliminary Acinetobacter Baumannii Lab Studies 11/13/18 11/13/18 11/13/18 Range/Units 13:48 13:48 13:48 WBC 9.1 (4.8-10.8) K/uL RBC 3.04 L (4.40-5.90) Mil/uL Hgb 7.7 L (12.0-18.0) g/dL Hct 23.9 L (35.0-51.0) % MCV 78.7 L (80.0-94.0) fL MCH 25.3 L (27.0-31.0) pg MCHC 32.1 L (33.0-37.0) g/dL RDW 20.2 H (11.5-14.5) % Plt Count 310 (130-400) K/uL MPV 8.6 (7.2-11.7) fL Neut % (Auto) 57.6 (50.0-75.0) % Lymph % (Auto) 36.2 (20.0-40.0) % [place] % (Auto) 4.0 (0.0-10.0) % Eos % (Auto) 1.7 (0.0-4.0) % Baso % (Auto) 0.5 (0.0-2.0) % Neut # (Auto) 5.3 (1.8-7.0) K/uL Lymph # (Auto) 3.3 (1.0-4.3) K/uL [place] # (Auto) 0.4 (0.0-0.8) K/uL Eos # (Auto) 0.2 (0.0-0.7) K/uL Baso # (Auto) 0.0 (0.0-0.2) K/uL PT 12.6 H (9.7-12.2) SECONDS INR 1.2 APTT 41 H (21-34) SECONDS Puncture Site pCO2 (35-45) mm/Hg pO2 (80-100) mm/Hg HCO3 (21-28) mmol/L ABG pH (7.35-7.45) ABG Total CO2 (22-28) mmol/L ABG O2 Saturation (95-98) % ABG Base Excess (-2.0-3.0) mmol/L ABG Hemoglobin (11.7-17.4) g/dL ABG Carboxyhemoglobin (0.5-1.5) % POC ABG HHb (Measured) (0.0-5.0) % ABG Methemoglobin (0.0-3.0) % Ruiz Test A-a O2 Difference mm/Hg Respiratory Index Hgb O2 Saturation (95.0-98.0) % Vent Mode Mechanical Rate FiO2 % Tidal Volume PEEP Sodium (132-148) mmol/L Potassium (3.6-5.2) mmol/L Chloride (98-107) mmol/L Carbon Dioxide (22-30) mmol/L Anion Gap (10-20) BUN (9-20) mg/dL Creatinine (0.8-1.5) mg/dL Est GFR ( Amer) Est GFR (Non-Af Amer) POC Glucose (mg/dL) (65-110) mg/dL Random Glucose (75-110) mg/dL Calcium (8.6-10.4) mg/dl Phosphorus (2.5-4.5) mg/dL Magnesium (1.6-2.3) mg/dL Total Bilirubin (0.2-1.3) mg/dL AST (17-59) U/L ALT (21-72) U/L Alkaline Phosphatase (38-126) U/L Total Protein (6.3-8.3) g/dL Albumin (3.5-5.0) g/dL Globulin (2.2-3.9) gm/dL Albumin/Globulin Ratio (1.0-2.1) Blood Type B POSITIVE Antibody Screen Negative 11/13/18 11/13/18 11/13/18 Range/Units 11:39 06:13 06:13 WBC 9.5 (4.8-10.8) K/uL RBC 3.14 L (4.40-5.90) Mil/uL Hgb 8.0 L (12.0-18.0) g/dL Hct 24.8 L (35.0-51.0) % MCV 79.0 L (80.0-94.0) fL MCH 25.4 L (27.0-31.0) pg MCHC 32.2 L (33.0-37.0) g/dL RDW 20.2 H (11.5-14.5) % Plt Count 307 (130-400) K/uL MPV 9.4 (7.2-11.7) fL Neut % (Auto) 66.1 (50.0-75.0) % Lymph % (Auto) 27.2 (20.0-40.0) % [place] % (Auto) 4.7 (0.0-10.0) % Eos % (Auto) 1.5 (0.0-4.0) % Baso % (Auto) 0.5 (0.0-2.0) % Neut # (Auto) 6.3 (1.8-7.0) K/uL Lymph # (Auto) 2.6 (1.0-4.3) K/uL [place] # (Auto) 0.4 (0.0-0.8) K/uL Eos # (Auto) 0.1 (0.0-0.7) K/uL Baso # (Auto) 0.0 (0.0-0.2) K/uL PT (9.7-12.2) SECONDS INR APTT (21-34) SECONDS Puncture Site pCO2 (35-45) mm/Hg pO2 (80-100) mm/Hg HCO3 (21-28) mmol/L ABG pH (7.35-7.45) ABG Total CO2 (22-28) mmol/L ABG O2 Saturation (95-98) % ABG Base Excess (-2.0-3.0) mmol/L ABG Hemoglobin (11.7-17.4) g/dL ABG Carboxyhemoglobin (0.5-1.5) % POC ABG HHb (Measured) (0.0-5.0) % ABG Methemoglobin (0.0-3.0) % Ruiz Test A-a O2 Difference mm/Hg Respiratory Index Hgb O2 Saturation (95.0-98.0) % Vent Mode Mechanical Rate FiO2 % Tidal Volume PEEP Sodium 136 (132-148) mmol/L Potassium 3.6 (3.6-5.2) mmol/L Chloride 104 (98-107) mmol/L Carbon Dioxide 30 (22-30) mmol/L Anion Gap 5 L (10-20) BUN 15 (9-20) mg/dL Creatinine 0.8 (0.8-1.5) mg/dL Est GFR ( Amer) > 60 Est GFR (Non-Af Amer) > 60 POC Glucose (mg/dL) 93 (65-110) mg/dL Random Glucose 102 (75-110) mg/dL Calcium 7.7 L (8.6-10.4) mg/dl Phosphorus 3.0 (2.5-4.5) mg/dL Magnesium 2.1 (1.6-2.3) mg/dL Total Bilirubin 0.2 (0.2-1.3) mg/dL AST 17 D (17-59) U/L ALT 17 L (21-72) U/L Alkaline Phosphatase 166 H (38-126) U/L Total Protein 6.4 (6.3-8.3) g/dL Albumin 2.2 L (3.5-5.0) g/dL Globulin 4.2 H (2.2-3.9) gm/dL Albumin/Globulin Ratio 0.5 L (1.0-2.1) Blood Type Antibody Screen 11/13/18 11/13/18 11/13/18 Range/Units 05:55 05:45 00:08 WBC (4.8-10.8) K/uL RBC (4.40-5.90) Mil/uL Hgb (12.0-18.0) g/dL Hct (35.0-51.0) % MCV (80.0-94.0) fL MCH (27.0-31.0) pg MCHC (33.0-37.0) g/dL RDW (11.5-14.5) % Plt Count (130-400) K/uL MPV (7.2-11.7) fL Neut % (Auto) (50.0-75.0) % Lymph % (Auto) (20.0-40.0) % [place] % (Auto) (0.0-10.0) % Eos % (Auto) (0.0-4.0) % Baso % (Auto) (0.0-2.0) % Neut # (Auto) (1.8-7.0) K/uL Lymph # (Auto) (1.0-4.3) K/uL [place] # (Auto) (0.0-0.8) K/uL Eos # (Auto) (0.0-0.7) K/uL Baso # (Auto) (0.0-0.2) K/uL PT (9.7-12.2) SECONDS INR APTT (21-34) SECONDS Puncture Site L brac pCO2 39 (35-45) mm/Hg pO2 78 L (80-100) mm/Hg HCO3 28.4 H (21-28) mmol/L ABG pH 7.47 H (7.35-7.45) ABG Total CO2 29.6 H (22-28) mmol/L ABG O2 Saturation 98.1 H (95-98) % ABG Base Excess 4.4 H (-2.0-3.0) mmol/L ABG Hemoglobin 8.7 L (11.7-17.4) g/dL ABG Carboxyhemoglobin 2.3 H (0.5-1.5) % POC ABG HHb (Measured) 1.9 (0.0-5.0) % ABG Methemoglobin 0.2 (0.0-3.0) % Ruiz Test Na A-a O2 Difference 158.0 mm/Hg Respiratory Index 2.0 Hgb O2 Saturation 95.6 (95.0-98.0) % Vent Mode Prvc Mechanical Rate 16 FiO2 40.0 % Tidal Volume 450 PEEP 5 Sodium (132-148) mmol/L Potassium (3.6-5.2) mmol/L Chloride (98-107) mmol/L Carbon Dioxide (22-30) mmol/L Anion Gap (10-20) BUN (9-20) mg/dL Creatinine (0.8-1.5) mg/dL Est GFR ( Amer) Est GFR (Non-Af Amer) POC Glucose (mg/dL) 87 97 (65-110) mg/dL Random Glucose (75-110) mg/dL Calcium (8.6-10.4) mg/dl Phosphorus (2.5-4.5) mg/dL Magnesium (1.6-2.3) mg/dL Total Bilirubin (0.2-1.3) mg/dL AST (17-59) U/L ALT (21-72) U/L Alkaline Phosphatase (38-126) U/L Total Protein (6.3-8.3) g/dL Albumin (3.5-5.0) g/dL Globulin (2.2-3.9) gm/dL Albumin/Globulin Ratio (1.0-2.1) Blood Type Antibody Screen 11/12/18 11/12/18 Range/Units 18:10 11:09 WBC (4.8-10.8) K/uL RBC (4.40-5.90) Mil/uL Hgb (12.0-18.0) g/dL Hct (35.0-51.0) % MCV (80.0-94.0) fL MCH (27.0-31.0) pg MCHC (33.0-37.0) g/dL RDW (11.5-14.5) % Plt Count (130-400) K/uL MPV (7.2-11.7) fL Neut % (Auto) (50.0-75.0) % Lymph % (Auto) (20.0-40.0) % [place] % (Auto) (0.0-10.0) % Eos % (Auto) (0.0-4.0) % Baso % (Auto) (0.0-2.0) % Neut # (Auto) (1.8-7.0) K/uL Lymph # (Auto) (1.0-4.3) K/uL [place] # (Auto) (0.0-0.8) K/uL Eos # (Auto) (0.0-0.7) K/uL Baso # (Auto) (0.0-0.2) K/uL PT (9.7-12.2) SECONDS INR APTT (21-34) SECONDS Puncture Site pCO2 (35-45) mm/Hg pO2 (80-100) mm/Hg HCO3 (21-28) mmol/L ABG pH (7.35-7.45) ABG Total CO2 (22-28) mmol/L ABG O2 Saturation (95-98) % ABG Base Excess (-2.0-3.0) mmol/L ABG Hemoglobin (11.7-17.4) g/dL ABG Carboxyhemoglobin (0.5-1.5) % POC ABG HHb (Measured) (0.0-5.0) % ABG Methemoglobin (0.0-3.0) % Ruiz Test A-a O2 Difference mm/Hg Respiratory Index Hgb O2 Saturation (95.0-98.0) % Vent Mode Mechanical Rate FiO2 % Tidal Volume PEEP Sodium (132-148) mmol/L Potassium (3.6-5.2) mmol/L Chloride (98-107) mmol/L Carbon Dioxide (22-30) mmol/L Anion Gap (10-20) BUN (9-20) mg/dL Creatinine (0.8-1.5) mg/dL Est GFR ( Amer) Est GFR (Non-Af Amer) POC Glucose (mg/dL) 85 92 (65-110) mg/dL Random Glucose (75-110) mg/dL Calcium (8.6-10.4) mg/dl Phosphorus (2.5-4.5) mg/dL Magnesium (1.6-2.3) mg/dL Total Bilirubin (0.2-1.3) mg/dL AST (17-59) U/L ALT (21-72) U/L Alkaline Phosphatase (38-126) U/L Total Protein (6.3-8.3) g/dL Albumin (3.5-5.0) g/dL Globulin (2.2-3.9) gm/dL Albumin/Globulin Ratio (1.0-2.1) Blood Type Antibody Screen Laboratory Results - last 24 hr 11/12/18 11/12/18 11/13/18 11:09 18:10 00:08 WBC RBC Hgb Hct MCV MCH MCHC RDW Plt Count MPV Neut % (Auto) Lymph % (Auto) [place] % (Auto) Eos % (Auto) Baso % (Auto) Neut # (Auto) Lymph # (Auto) [place] # (Auto) Eos # (Auto) Baso # (Auto) PT INR APTT Puncture Site pCO2 pO2 HCO3 ABG pH ABG Total CO2 ABG O2 Saturation ABG Base Excess ABG Hemoglobin ABG Carboxyhemoglobin POC ABG HHb (Measured) ABG Methemoglobin Ruiz Test A-a O2 Difference Respiratory Index Hgb O2 Saturation Vent Mode Mechanical Rate FiO2 Tidal Volume PEEP Sodium Potassium Chloride Carbon Dioxide Anion Gap BUN Creatinine Est GFR ( Amer) Est GFR (Non-Af Amer) POC Glucose (mg/dL) 92 85 97 Random Glucose Calcium Phosphorus Magnesium Total Bilirubin AST ALT Alkaline Phosphatase Total Protein Albumin Globulin Albumin/Globulin Ratio Blood Type Antibody Screen 11/13/18 11/13/18 11/13/18 05:45 05:55 06:13 WBC 9.5 RBC 3.14 L Hgb 8.0 L Hct 24.8 L MCV 79.0 L MCH 25.4 L MCHC 32.2 L RDW 20.2 H Plt Count 307 MPV 9.4 Neut % (Auto) 66.1 Lymph % (Auto) 27.2 [place] % (Auto) 4.7 Eos % (Auto) 1.5 Baso % (Auto) 0.5 Neut # (Auto) 6.3 Lymph # (Auto) 2.6 [place] # (Auto) 0.4 Eos # (Auto) 0.1 Baso # (Auto) 0.0 PT INR APTT Puncture Site L brac pCO2 39 pO2 78 L HCO3 28.4 H ABG pH 7.47 H ABG Total CO2 29.6 H ABG O2 Saturation 98.1 H ABG Base Excess 4.4 H ABG Hemoglobin 8.7 L ABG Carboxyhemoglobin 2.3 H POC ABG HHb (Measured) 1.9 ABG Methemoglobin 0.2 Ruiz Test Na A-a O2 Difference 158.0 Respiratory Index 2.0 Hgb O2 Saturation 95.6 Vent Mode Prvc Mechanical Rate 16 FiO2 40.0 Tidal Volume 450 PEEP 5 Sodium Potassium Chloride Carbon Dioxide Anion Gap BUN Creatinine Est GFR ( Amer) Est GFR (Non-Af Amer) POC Glucose (mg/dL) 87 Random Glucose Calcium Phosphorus Magnesium Total Bilirubin AST ALT Alkaline Phosphatase Total Protein Albumin Globulin Albumin/Globulin Ratio Blood Type Antibody Screen 11/13/18 11/13/18 11/13/18 06:13 11:39 13:48 WBC RBC Hgb Hct MCV MCH MCHC RDW Plt Count MPV Neut % (Auto) Lymph % (Auto) [place] % (Auto) Eos % (Auto) Baso % (Auto) Neut # (Auto) Lymph # (Auto) [place] # (Auto) Eos # (Auto) Baso # (Auto) PT 12.6 H INR 1.2 APTT 41 H Puncture Site pCO2 pO2 HCO3 ABG pH ABG Total CO2 ABG O2 Saturation ABG Base Excess ABG Hemoglobin ABG Carboxyhemoglobin POC ABG HHb (Measured) ABG Methemoglobin Ruiz Test A-a O2 Difference Respiratory Index Hgb O2 Saturation Vent Mode Mechanical Rate FiO2 Tidal Volume PEEP Sodium 136 Potassium 3.6 Chloride 104 Carbon Dioxide 30 Anion Gap 5 L BUN 15 Creatinine 0.8 Est GFR ( Amer) > 60 Est GFR (Non-Af Amer) > 60 POC Glucose (mg/dL) 93 Random Glucose 102 Calcium 7.7 L Phosphorus 3.0 Magnesium 2.1 Total Bilirubin 0.2 AST 17 D ALT 17 L Alkaline Phosphatase 166 H Total Protein 6.4 Albumin 2.2 L Globulin 4.2 H Albumin/Globulin Ratio 0.5 L Blood Type Antibody Screen 11/13/18 11/13/18 13:48 13:48 WBC 9.1 RBC 3.04 L Hgb 7.7 L Hct 23.9 L MCV 78.7 L MCH 25.3 L MCHC 32.1 L RDW 20.2 H Plt Count 310 MPV 8.6 Neut % (Auto) 57.6 Lymph % (Auto) 36.2 [place] % (Auto) 4.0 Eos % (Auto) 1.7 Baso % (Auto) 0.5 Neut # (Auto) 5.3 Lymph # (Auto) 3.3 [place] # (Auto) 0.4 Eos # (Auto) 0.2 Baso # (Auto) 0.0 PT INR APTT Puncture Site pCO2 pO2 HCO3 ABG pH ABG Total CO2 ABG O2 Saturation ABG Base Excess ABG Hemoglobin ABG Carboxyhemoglobin POC ABG HHb (Measured) ABG Methemoglobin Ruiz Test A-a O2 Difference Respiratory Index Hgb O2 Saturation Vent Mode Mechanical Rate FiO2 Tidal Volume PEEP Sodium Potassium Chloride Carbon Dioxide Anion Gap BUN Creatinine Est GFR ( Amer) Est GFR (Non-Af Amer) POC Glucose (mg/dL) Random Glucose Calcium Phosphorus Magnesium Total Bilirubin AST ALT Alkaline Phosphatase Total Protein Albumin Globulin Albumin/Globulin Ratio Blood Type B POSITIVE Antibody Screen Negative Radiology Impressions: Radiology Impressions Chest X-Ray 11/13/18 04:00 IMPRESSION: No acute infiltrate. Diffuse ill-defined opacity, likely interstitial. Lines and tubes unchanged. Critical Care Progress Note - Nutrition Nutrition: Nutrition Category Date Time Status NPO Diet [DIET] Diets 11/14/18 Breakfast Active Assessment/Plan (1) Pneumonia Current Visit: Yes Status: Acute (2) Sepsis Current Visit: Yes Status: Acute (3) Acute respiratory failure with hypoxemia Current Visit: No Status: Acute Attending/Attestation - Attestation I have personally seen and examined this patient.: Yes I have fully participated in the care of the patient.: Yes I have reviewed all pertinent clinical information: Yes Notes (Text): 11/13/18 16:38 patient seen and examined On ventilatory support Not tolerating weaning Continue antibiotics For GT tube insertion family refused tracheostomy LTACH
[2018-11-13] MEDS: levETIRAcetam 100 mg/ml (5ml) Oral Syringe PO SCH ×2 (09:48→17:57)
[2018-11-13] MEDS: Valproic Acid 250 mg/5 ml UD Cup PO SCH ×2 (09:48→17:57)
[2018-11-13] MEDS: Enoxaparin 40 mg Syringe SC SCH (09:48)
[2018-11-13] MEDS ORDERED: Meropenem 1 GM in Sodium Chloride 0.9% 100 ML IVPB SCH (10:00)
--- NOTE | 2018-11-13 11:13 | CP.PCM.CON ---
History of Present Illness - History of Present Illness History of Present Illness: Surgery Consult Note. Dr. 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 He was intubated by EMS at the [place] prior to arrival. High suspicion for aspiration pneumonia. Has been in the ICU since and unable to be weaned off the ventilator. Surgery consult was obtained for Tracheostomy placement and Gastrostomy placement. 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, Alzheimer's, Anxiety, Bipolar, HTN, DM, HLD, Seizure disorder PSHx: Unknown (no abdominal scars) Family Hx: non-contributory Social Hx: Resident at [facility] NKDA Review of Systems - Review of Systems Systems not reviewed;Unavailable: Respiratory Distress, Intubated Past Patient History - Infectious Disease Hx of Infectious Diseases: None - Past Medical History & Family History Past Medical History?: Yes - Past Social History Smoking Status: Never Smoked Home Situation {Lives}: Fpc - CARDIAC Hx Hypercholesterolemia: Yes Hx Hypertension: Yes - PULMONARY Hx Pneumonia: Yes (Aspiration) - NEUROLOGICAL Hx Alzheimer's Disease: Yes Hx Dementia: Yes Hx Seizures: Yes - HEENT Hx HEENT Problems: Yes Hx Cataracts: Yes (Both Cataract Surgery) - RENAL Hx Chronic Kidney Disease: No - ENDOCRINE/METABOLIC Hx Endocrine Disorders: Yes Hx Diabetes Mellitus Type 2: Yes - HEMATOLOGICAL/ONCOLOGICAL Hx Blood Disorders: No - INTEGUMENTARY Hx Dermatological Problems: No - MUSCULOSKELETAL/RHEUMATOLOGICAL Hx Arthritis: Yes Hx Fractures: Yes (non displaced avulsion fracture of right talus) - GASTROINTESTINAL Hx Gastrointestinal Disorders: Yes Hx Gastroesophageal Reflux: Yes - GENITOURINARY/GYNECOLOGICAL Hx Genitourinary Disorders: Yes Hx Prostate Problems: Yes (BPH) - PSYCHIATRIC Hx Anxiety: Yes Hx Bipolar Disorder: Yes Hx Depression: Yes Hx Substance Use: No - SURGICAL HISTORY Hx Appendectomy: Yes - ANESTHESIA Hx Anesthesia: Yes Hx Anesthesia Reactions: No Hx Malignant Hyperthermia: No Meds Allergies/Adverse Reactions: Allergies Allergy/AdvReac Type Severity Reaction Status Date / Time No Known Allergies Allergy Verified 11/03/18 16:30 - Medications Medications: Current Medications Enoxaparin Sodium (Lovenox) 40 mg SC DAILY [facility] Last Admin: 11/13/18 09:48 Dose: 40 mg Famotidine (Pepcid) 20 mg GT Q12 [facility] Last Admin: 11/13/18 09:48 Dose: 20 mg Vancomycin HCl 1.25 gm/ Sodium (Chloride) 250 mls @ 120 mls/hr IVPB Q24H [facility]; Protocol Last Admin: 11/13/18 09:48 Dose: 120 mls/hr Propofol (Diprivan) 1,000 mg in 100 mls @ 1.716 mls/hr IV .Q24H PRN; Protocol PRN Reason: TITRATE PER MD ORDER Last Admin: 11/13/18 03:33 Dose: 14.56 mcg/kg/min, 5 mls/hr Voriconazole 200 mg/ Sodium (Chloride) 100 mls @ 100 mls/hr IVPB Q12H [facility] Last Admin: 11/13/18 02:09 Dose: 100 mls/hr Meropenem 1 gm/ Sodium (Chloride) 100 mls @ 100 mls/hr IVPB Q8H [facility]; Protocol Insulin Human Regular (Novolin R) 0 unit SC Q6H [facility]; Protocol Last Admin: 11/13/18 06:09 Dose: Not Given Levetiracetam (Keppra) 500 mg PO BID [facility] Last Admin: 11/13/18 09:48 Dose: 500 mg Tamsulosin HCl (Flomax) 0.4 mg PO DAILY [facility] Valproate Sodium (Depakene Oral Soln) 250 mg PO BID [facility] Last Admin: 11/13/18 09:48 Dose: 250 mg Physical Exam - Constitutional Appears: Non-toxic, No Acute Distress - Head Exam Head Exam: ATRAUMATIC, NORMAL INSPECTION, NORMOCEPHALIC - ENT Exam Additional comments: intubated and sedated. On pressure support ventilation at this time with PEEP of 5. - Respiratory Exam Additional comments: Intubated and sedated - GI/Abdominal Exam GI & Abdominal Exam: Soft. absent: Distended, Firm, Guarding, Rebound, Rigid, Tenderness Additional comments: No abdominal scars apparent. - Extremities Exam Extremities exam: Positive for: normal inspection. Negative for: calf tenderness - Neurological Exam Additional comments: Intubated and sedated Results - Vital Signs Recent Vital Signs: Last Vital Signs Temp 98.3 F 11/13/18 08:00 Pulse 74 11/13/18 09:00 Resp 25 H 11/13/18 09:00 BP 146/70 11/13/18 09:00 Pulse Ox 98 11/13/18 09:00 - Labs Result Diagrams: 11/13/18 06:13 11/13/18 06:13 Labs: Laboratory Results - last 24 hr 11/13/18 11/13/18 11/13/18 05:45 06:13 06:13 WBC 9.5 RBC 3.14 L Hgb 8.0 L Hct 24.8 L MCV 79.0 L MCH 25.4 L MCHC 32.2 L RDW 20.2 H Plt Count 307 MPV 9.4 Neut % (Auto) 66.1 Lymph % (Auto) 27.2 Hickman % (Auto) 4.7 Eos % (Auto) 1.5 Baso % (Auto) 0.5 Neut # (Auto) 6.3 Lymph # (Auto) 2.6 Hickman # (Auto) 0.4 Eos # (Auto) 0.1 Baso # (Auto) 0.0 Puncture Site L brac pCO2 39 pO2 78 L HCO3 28.4 H ABG pH 7.47 H ABG Total CO2 29.6 H ABG O2 Saturation 98.1 H ABG Base Excess 4.4 H ABG Hemoglobin 8.7 L ABG Carboxyhemoglobin 2.3 H POC ABG HHb (Measured) 1.9 ABG Methemoglobin 0.2 Ruiz Test Na A-a O2 Difference 158.0 Respiratory Index 2.0 Hgb O2 Saturation 95.6 Vent Mode Prvc Mechanical Rate 16 FiO2 40.0 Tidal Volume 450 PEEP 5 Sodium 136 Potassium 3.6 Chloride 104 Carbon Dioxide 30 Anion Gap 5 L BUN 15 Creatinine 0.8 Est GFR ( Amer) > 60 Est GFR (Non-Af Amer) > 60 Random Glucose 102 Calcium 7.7 L Phosphorus 3.0 Magnesium 2.1 Total Bilirubin 0.2 AST 17 D ALT 17 L Alkaline Phosphatase 166 H Total Protein 6.4 Albumin 2.2 L Globulin 4.2 H Albumin/Globulin Ratio 0.5 L Assessment & Plan - Assessment and Plan (Free Text) Assessment: 63yo M with hypercapnic respiratory failure. Surgery consulted for Tracheostomy and PEG placement Plan: - To OR 11/14 for Tracheostomy and PEG placement - Please hold tube feeds at 10PM 11/13 - f/u Repeat Coags - f/u Repeat blood work - Hold [facility] 11/14 Further recs as per Dr. Vijay Escoto PGY2 Surgery
--- NOTE | 2018-11-13 11:23 | RAD ---
Date of service: 11/13/2018 HISTORY: intubated COMPARISON: 11/12/2018 FINDINGS: LUNGS: Diffuse ill-defined pulmonary opacity unchanged from prior examination. Possible interstitial infiltrate versus. No focal consolidation. PLEURA: No significant pleural effusion identified, no pneumothorax apparent. CARDIOVASCULAR: No aortic atherosclerotic calcification present. Normal cardiac size. ET tube, NG tube and right IJ multi lumen central venous catheter are all grossly unchanged in position. OSSEOUS STRUCTURES: No significant abnormalities. VISUALIZED UPPER ABDOMEN: Normal. OTHER FINDINGS: None. IMPRESSION: No acute infiltrate. Diffuse ill-defined opacity, likely interstitial. Lines and tubes unchanged.
--- NOTE | 2018-11-13 12:13 | CP.PCM.CON ---
History of Present Illness - History of Present Illness History of Present Illness: Palliative consult requested by Doctor Law for goals of care discussion Patient is a 63 yo male admitted from detention with respiratory failure, found by nurse. The EMS intubated patient on the field. In ED patient diagnosed with aspiration pneumonia and pulmonary venous congestion. Patient has not tolerated the weaning process and still remains on Full life support. Patient's family is out of state and will be coming back after New Year. Patient is unable to participate in goals of care discussion. ICU team feels that t racheostomy would be appropriate next step in care for this patient. Palliative care was asked to assist in goals discussion. PMH: paraplegia, rsp. distress, Alzheimer's, CVA, [employer]. Hx: NH resident, Fam. Hx: Unknown Review of Systems - Review of Systems All systems: reviewed and no additional remarkable complaints except Review of Systems: ROS unobtainable from patient due to intubation and sedation. ROS obtained from nursing. Per nursing, patient had remained clinically same. Past Patient History - Infectious Disease Hx of Infectious Diseases: None - Past Medical History & Family History Past Medical History?: Yes - Past Social History Smoking Status: Never Smoked Home Situation {Lives}: Skilled Nursing - CARDIAC Hx Hypercholesterolemia: Yes Hx Hypertension: Yes - PULMONARY Hx Pneumonia: Yes (Aspiration) - NEUROLOGICAL Hx Alzheimer's Disease: Yes Hx Dementia: Yes Hx Seizures: Yes - HEENT Hx HEENT Problems: Yes Hx Cataracts: Yes (Both Cataract Surgery) - RENAL Hx Chronic Kidney Disease: No - ENDOCRINE/METABOLIC Hx Endocrine Disorders: Yes Hx Diabetes Mellitus Type 2: Yes - HEMATOLOGICAL/ONCOLOGICAL Hx Blood Disorders: No - INTEGUMENTARY Hx Dermatological Problems: No - MUSCULOSKELETAL/RHEUMATOLOGICAL Hx Arthritis: Yes Hx Fractures: Yes (non displaced avulsion fracture of right talus) - GASTROINTESTINAL Hx Gastrointestinal Disorders: Yes Hx Gastroesophageal Reflux: Yes - GENITOURINARY/GYNECOLOGICAL Hx Genitourinary Disorders: Yes Hx Prostate Problems: Yes (BPH) - PSYCHIATRIC Hx Anxiety: Yes Hx Bipolar Disorder: Yes Hx Depression: Yes Hx Substance Use: No - SURGICAL HISTORY Hx Appendectomy: Yes - ANESTHESIA Hx Anesthesia: Yes Hx Anesthesia Reactions: No Hx Malignant Hyperthermia: No Meds Allergies/Adverse Reactions: Allergies Allergy/AdvReac Type Severity Reaction Status Date / Time No Known Allergies Allergy Verified 11/03/18 16:30 - Medications Medications: Current Medications Enoxaparin Sodium (Lovenox) 40 mg SC DAILY [facility] Last Admin: 11/13/18 09:48 Dose: 40 mg Famotidine (Pepcid) 20 mg GT Q12 [facility] Last Admin: 11/13/18 09:48 Dose: 20 mg Propofol (Diprivan) 1,000 mg in 100 mls @ 1.716 mls/hr IV .Q24H [facility]; Protocol PRN Reason: TITRATE PER MD ORDER Last Admin: 11/13/18 03:33 Dose: 14.56 mcg/kg/min, 5 mls/hr Voriconazole 200 mg/ Sodium (Chloride) 100 mls @ 100 mls/hr IVPB Q12H [facility] Last Admin: 11/13/18 02:09 Dose: 100 mls/hr Ceftazidime/Avibactam 2.5 gm/ (Sodium Chloride) 100 mls @ 50 mls/hr IV Q8H [facility]; Protocol Insulin Human Regular (Novolin R) 0 unit SC Q6H [facility]; Protocol Last Admin: 11/13/18 06:09 Dose: Not Given Levetiracetam (Keppra) 500 mg PO BID [facility] Last Admin: 11/13/18 09:48 Dose: 500 mg Tamsulosin HCl (Flomax) 0.4 mg PO DAILY [facility] Valproate Sodium (Depakene Oral Soln) 250 mg PO BID [facility] Last Admin: 11/13/18 09:48 Dose: 250 mg Physical Exam - Constitutional Appears: In Acute Distress, Chronically Ill - Head Exam Head Exam: ATRAUMATIC, NORMAL INSPECTION, NORMOCEPHALIC - Eye Exam Eye Exam: EOMI, Normal appearance, PERRL Pupil Exam: NORMAL ACCOMODATION - ENT Exam ENT Exam: Mucous Membranes Dry Additional comments: ETT - Neck Exam Neck exam: Positive for: Normal Inspection - Respiratory Exam Respiratory Exam: Decreased Breath Sounds Additional comments: On MV support - Cardiovascular Exam Cardiovascular Exam: Tachycardia - GI/Abdominal Exam GI & Abdominal Exam: Hypoactive Bowel Sounds, Soft - Rectal Exam Rectal Exam: Deferred - Exam Additional comments: Nelson cath - Extremities Exam Extremities exam: Positive for: normal inspection - Back Exam Back exam: NORMAL INSPECTION - Neurological Exam Neurological exam: Motor Sensory Deficit - Psychiatric Exam Psychiatric exam: Flat Affect - Skin Skin Exam: Normal Color, Warm Results - Vital Signs Recent Vital Signs: Last Vital Signs Temp 98.3 F 1226/18 08:00 Pulse 71 11/13/18 11:07 Resp 35 H 11/13/18 11:07 BP 129/61 11/13/18 11:07 Pulse Ox 97 11/13/18 11:07 - Labs Result Diagrams: 11/13/18 06:13 11/13/18 06:13 Labs: Laboratory Results - last 24 hr 11/13/18 11/13/18 11/13/18 05:45 06:13 06:13 WBC 9.5 RBC 3.14 L Hgb 8.0 L Hct 24.8 L MCV 79.0 L MCH 25.4 L MCHC 32.2 L RDW 20.2 H Plt Count 307 MPV 9.4 Neut % (Auto) 66.1 Lymph % (Auto) 27.2 Yancey % (Auto) 4.7 Eos % (Auto) 1.5 Baso % (Auto) 0.5 Neut # (Auto) 6.3 Lymph # (Auto) 2.6 Yancey # (Auto) 0.4 Eos # (Auto) 0.1 Baso # (Auto) 0.0 Puncture Site L brac pCO2 39 pO2 78 L HCO3 28.4 H ABG pH 7.47 H ABG Total CO2 29.6 H ABG O2 Saturation 98.1 H ABG Base Excess 4.4 H ABG Hemoglobin 8.7 L ABG Carboxyhemoglobin 2.3 H POC ABG HHb (Measured) 1.9 ABG Methemoglobin 0.2 Ruiz Test Na A-a O2 Difference 158.0 Respiratory Index 2.0 Hgb O2 Saturation 95.6 Vent Mode Prvc Mechanical Rate 16 FiO2 40.0 Tidal Volume 450 PEEP 5 Sodium 136 Potassium 3.6 Chloride 104 Carbon Dioxide 30 Anion Gap 5 L BUN 15 Creatinine 0.8 Est GFR ( Amer) > 60 Est GFR (Non-Af Amer) > 60 Random Glucose 102 Calcium 7.7 L Phosphorus 3.0 Magnesium 2.1 Total Bilirubin 0.2 AST 17 D ALT 17 L Alkaline Phosphatase 166 H Total Protein 6.4 Albumin 2.2 L Globulin 4.2 H Albumin/Globulin Ratio 0.5 L Assessment & Plan - Assessment and Plan (Free Text) Assessment: Palliative consult Full Code, there is no Advance Directive on chart, PPS 10% I reviewed medical records, all diagnostic studies, examined patient in the bed and discussed his condition with ICU team Patient is intubated and sedated , unresponsive to touch nor to verbal stimuli. NGT in for hydration and nutrition. Skin and sclera pale, Hb 8.0. Breathing supported by MV. o2Sat 97 % on 49 % Fio@, RR 38. Patient did not tolerate CPAP. Abdomen soft, bowel sounds present. Nelson at bed side, urine clear. BP 143/68, HR 71, afebrile I discussed patient's condition with Doctor Michelet. Doctor Tafoya is under impression that trach / PEG formation should be next step in care of this patient. However, patient's wishes for end of life care are not know, and his family is not around to advocate for him. Per nursing, patient's brother in law visits daily. I asked nursing staff to let me know when brother in law comes in. Impression * Chronically ill male with acute respiratory distress on MV * Patient has been sick for while and his quality of life is significantly limited by CVA and paraplegia. Thee condition has worsened post this acute respiratory distress * patient's wishes for nd of life care are not known and he is unable to participate in discussion due to condition * Lack of family support at present, ( family out of state) * ICU team is suggesting trach/PEG Suggestion * In the light of patient's clinical presentation patient's comfort is a 1st goal * PEG/trach will not improve quality of life for this very sick man, but may prolong his life * I would discuss this plan with patient's brother in law who could give us some inside of what patient wouldof want for him self * Patient should be at least made DNR. Palliative care will fallow up with patient and his family when available.
[2018-11-13 13:54] LABS: BASO % 0.5 % (0.0-2.0); EOS # 0.2 K/uL (0.0-0.7); EOS % 1.7 % (0.0-4.0); HEMOGLOBIN 7.7 g/dL (12.0-18.0); LYMPH # 3.3 K/uL (1.0-4.3); LYMPH % 36.2 % (20.0-40.0); MEAN CELL VOLUME 78.7 fL (80.0-94.0); MEAN CORPUSCULAR HEMOGLOBIN 25.3 pg (27.0-31.0); MEAN CORPUSCULAR HGB CONC 32.1 g/dL (33.0-37.0); MEAN PLATELET VOLUME 8.6 fL (7.2-11.7); MONO # 0.4 K/uL (0.0-0.8); NEUT # 5.3 K/uL (1.8-7.0); NEUT % 57.6 % (50.0-75.0); RBC 3.04 Mil/uL (4.40-5.90); RED CELL DISTRIBUTION WIDTH 20.2 % (11.5-14.5); WHITE BLOOD COUNT 9.1 K/uL (4.8-10.8)
[2018-11-13 14:03] LABS: INR 1.2; PROTHROMBIN TIME 12.6 SECONDS (9.7-12.2)
--- NOTE | 2018-11-13 21:10 | CP.PCM.PN ---
Subjective - Date & Time of Evaluation Date of Evaluation: 11/13/18 Time of Evaluation: 13:45 - Subjective Subjective: clinically same Objective - Vital Signs/Intake and Output Vital Signs (last 24 hours): Temp Pulse Resp BP Pulse Ox 98 F 72 22 144/63 95 11/13/18 18:00 11/13/18 20:40 11/13/18 20:40 11/13/18 20:40 11/13/18 20:40 Intake and Output: 11/13/18 11/14/18 18:59 06:59 Intake Total 1180 190 Output Total 795 110 Balance 385 80 - Medications Medications: Current Medications Enoxaparin Sodium (Lovenox) 40 mg SC DAILY [facility] Last Admin: 11/13/18 09:48 Dose: 40 mg Famotidine (Pepcid) 20 mg GT Q12 [facility] Last Admin: 11/13/18 09:48 Dose: 20 mg Propofol (Diprivan) 1,000 mg in 100 mls @ 1.716 mls/hr IV .Q24H [facility]; Protocol PRN Reason: TITRATE PER MD ORDER Last Admin: 11/13/18 03:33 Dose: 14.56 mcg/kg/min, 5 mls/hr Voriconazole 200 mg/ Sodium (Chloride) 100 mls @ 100 mls/hr IVPB Q12H [facility] Last Admin: 11/13/18 14:21 Dose: 100 mls/hr Ceftazidime/Avibactam 2.5 gm/ (Sodium Chloride) 100 mls @ 50 mls/hr IV Q8H [facility]; Protocol Last Admin: 11/13/18 20:29 Dose: 50 mls/hr Levetiracetam (Keppra) 500 mg PO BID [facility] Last Admin: 11/13/18 17:57 Dose: 500 mg Tamsulosin HCl (Flomax) 0.4 mg PO DAILY [facility] Valproate Sodium (Depakene Oral Soln) 250 mg PO BID [facility] Last Admin: 11/13/18 17:57 Dose: 250 mg - Labs Labs: 11/13/18 13:48 11/13/18 06:13 PT 12.6 SECONDS (9.7-12.2) H 11/13/18 13:48 INR 1.2 11/13/18 13:48 APTT 41 SECONDS (21-34) H 11/13/18 13:48 - Constitutional Appears: Well - Head Exam Head Exam: ATRAUMATIC, NORMAL INSPECTION, NORMOCEPHALIC - Eye Exam Eye Exam: EOMI, Normal appearance, PERRL Pupil Exam: NORMAL ACCOMODATION, PERRL - ENT Exam ENT Exam: Mucous Membranes Moist, Normal Exam - Neck Exam Neck Exam: Full ROM, Normal Inspection. absent: Lymphadenopathy - Respiratory Exam Respiratory Exam: Decreased Breath Sounds - Cardiovascular Exam Cardiovascular Exam: REGULAR RHYTHM, +S1, +S2 - GI/Abdominal Exam GI & Abdominal Exam: Soft, Diminished Bowel Sounds - Rectal Exam Rectal Exam: Deferred
--- NOTE | 2018-11-13 22:49 | CP.PCM.PN ---
Subjective - Date & Time of Evaluation Date of Evaluation: 11/13/18 Time of Evaluation: 15:00 - Subjective Subjective: dictated Objective - Vital Signs/Intake and Output Vital Signs (last 24 hours): Temp Pulse Resp BP Pulse Ox 98 F 72 22 144/63 96 11/13/18 18:00 11/13/18 21:00 11/13/18 21:00 11/13/18 21:00 11/13/18 21:00 Intake and Output: 11/13/18 11/14/18 18:59 06:59 Intake Total 1180 235 Output Total 795 150 Balance 385 85 - Medications Medications: Current Medications Enoxaparin Sodium (Lovenox) 40 mg SC DAILY [facility] Last Admin: 11/13/18 09:48 Dose: 40 mg Famotidine (Pepcid) 20 mg GT Q12 [facility] Last Admin: 11/13/18 22:12 Dose: 20 mg Propofol (Diprivan) 1,000 mg in 100 mls @ 1.716 mls/hr IV .Q24H [facility]; Protocol PRN Reason: TITRATE PER MD ORDER Last Admin: 11/13/18 03:33 Dose: 14.56 mcg/kg/min, 5 mls/hr Voriconazole 200 mg/ Sodium (Chloride) 100 mls @ 100 mls/hr IVPB Q12H [facility] Last Admin: 11/13/18 14:21 Dose: 100 mls/hr Ceftazidime/Avibactam 2.5 gm/ (Sodium Chloride) 100 mls @ 50 mls/hr IV Q8H [facility]; Protocol Last Admin: 11/13/18 20:29 Dose: 50 mls/hr Levetiracetam (Keppra) 500 mg PO BID [facility] Last Admin: 11/13/18 17:57 Dose: 500 mg Tamsulosin HCl (Flomax) 0.4 mg PO DAILY [facility] Valproate Sodium (Depakene Oral Soln) 250 mg PO BID [facility] Last Admin: 11/13/18 17:57 Dose: 250 mg - Labs Labs: 11/13/18 13:48 11/13/18 06:13 PT 12.6 SECONDS (9.7-12.2) H 11/13/18 13:48 INR 1.2 11/13/18 13:48 APTT 41 SECONDS (21-34) H 11/13/18 13:48
[2018-11-14] MEDS: Propofol 10 mg/ml 1,000 MG/100 ML VIAL IV PRN ×2 (00:49→22:34)
--- NOTE | 2018-11-14 03:14 | PN ---
DATE: 11/13/2018 SUBJECTIVE: The patient remains intubated on the ventilator. Right now, we put him in isolation as his sputum culture came out Acinetobacter and most of the antibiotics reported are resistant. Initially I was going to start him on meropenem, but meropenem had a reaction to the valproic acid that he is on, so I put him on Avycaz. The patient has resistant organisms. He remains clinically intubated, not different than what he has been. He is afebrile. PHYSICAL EXAMINATION VITAL SIGNS: T-max is 98, pulse 71, blood pressure 156/66, respirations are 23. HEENT: Head is atraumatic and normocephalic. Intubated. NECK: Supple. LUNGS: Coarse breath sounds. HEART: S1, S2 regular. ABDOMEN: Soft, nontender. No guarding, no rigidity present. EXTREMITIES: Venodyne boots present. LABORATORY DATA: Sputum showed Acinetobacter. White count is 9.1, hemoglobin 7.7 and decreasing, platelet count is 310. His BUN is 5, creatinine is 0.8. LFTs show alk phos is 166. IMPRESSION: He had an x-ray done today, and x-ray shows he has no acute infiltrate, diffuse ill-defined opacities likely interstitial. Lines and tubes remain unchanged; however, his sputum has Acinetobacter which is significant for hospital-acquired pneumonia and it also comes from the institution, so maybe [facility] it from the [facility], but recently he had Staphylococcus aureus Acinetobacter, it should be reported to the Infection Control, so he can pursue study. At this time, I will put the patient on Avycaz and see tomorrow, and also put him on colistin and discontinue vancomycin. The patient remains with respiratory failure, has resistant organism and pneumonia, and he has paraplegia. We will follow. Jenna Fine MD
[2018-11-14 04:58] LABS: ABG ALLEN TEST POS; ARTERIAL BLOOD GAS HCO3 27.4 mmol/L (21-28); ARTERIAL BLOOD GAS HEMOGLOBIN 11.2 g/dL (11.7-17.4); ARTERIAL BLOOD GAS O2 SAT 98.8 % (95-98); ARTERIAL BLOOD GAS PCO2 37 mm/Hg (35-45); ARTERIAL BLOOD GAS PH 7.47 (7.35-7.45); ARTERIAL BLOOD GAS PO2 97 mm/Hg (80-100)
[2018-11-14 06:13] LABS: BASO % 0.5 % (0.0-2.0); EOS # 0.1 K/uL (0.0-0.7); EOS % 1.3 % (0.0-4.0); LYMPH # 2.2 K/uL (1.0-4.3); LYMPH % 26.1 % (20.0-40.0); MEAN CELL VOLUME 79.9 fL (80.0-94.0); MEAN CORPUSCULAR HEMOGLOBIN 25.6 pg (27.0-31.0); MEAN PLATELET VOLUME 9.2 fL (7.2-11.7); MONO # 0.4 K/uL (0.0-0.8); MONO % 4.7 % (0.0-10.0); NEUT # 5.6 K/uL (1.8-7.0); NEUT % 67.4 % (50.0-75.0); RBC 3.12 Mil/uL (4.40-5.90); RED CELL DISTRIBUTION WIDTH 20.8 % (11.5-14.5); WHITE BLOOD COUNT 8.3 K/uL (4.8-10.8)
[2018-11-14 06:16] LABS: INR 1.2
[2018-11-14 06:42] LABS: ALB/GLOB RATIO 0.5 (1.0-2.1); ALBUMIN 2.3 g/dL (3.5-5.0); ALT/SGPT 6 U/L (21-72); AST/SGOT 20 U/L (17-59); BLOOD UREA NITROGEN 11 mg/dL (9-20); CALCIUM 7.6 mg/dl (8.6-10.4); GFR NON-AFRICAN AMERICAN > 60
[2018-11-14] MEDS ORDERED: Potassium Chloride 20 mEq/15 ml LIQ UD GT ONE (07:15)
[2018-11-14] MEDS ORDERED: Lidocaine/Epinephrine 1% 1:100000 10 ML IJ ONE (08:14)
[2018-11-14] MEDS ORDERED: Midazolam 2 MG/2 ML VIAL ONE (08:16)
--- NOTE | 2018-11-14 08:46 | RAD ---
Date of service: 11/14/2018 HISTORY: intubated COMPARISON: 11/13/2018 FINDINGS: LUNGS: Increasing patchy bilateral opacities suspicious for pneumonia. Possible interstitial component. No ruthie focal consolidation. PLEURA: No significant pleural effusion identified, no pneumothorax apparent. CARDIOVASCULAR: There is atherosclerotic calcification of the aortic arch. Normal cardiac size. No congestive change. ET tube, NG tube and right IJ central venous catheter are unchanged. OSSEOUS STRUCTURES: No significant abnormalities. VISUALIZED UPPER ABDOMEN: Normal. OTHER FINDINGS: None. IMPRESSION: Increasing bilateral patchy opacities. Possible developing pneumonia. Follow-up advised.
--- NOTE | 2018-11-14 08:52 | PCM.SURG1 ---
Surgeon's Initial Post Op Note - Surgeon's Notes Surgeon: Vijay Beef Farmer: [id number] Type of Anesthesia: General Endo, Local Pre-Operative Diagnosis: hypercapneic respiratory failure Operative Findings: gastritis, good placement of PEG tube. Post-Operative Diagnosis: hypercapneic respiratory failure Operation Performed: Percutaneous Gastrostomy tube placement, EGD Specimen/Specimens Removed: N/A Estimated Blood Loss: EBL {In ML}: 5 Blood Products Given: N/A Drains Used: No Drains Post-Op Condition: Good Date of Surgery/Procedure: 11/14/18 Time of Surgery/Procedure: 08:00
--- NOTE | 2018-11-14 09:47 | CP.PCM.PN ---
Subjective - Date & Time of Evaluation Date of Evaluation: 11/14/18 Time of Evaluation: 09:44 - Subjective Subjective: Patient examined in bed, S/P PEG procedure. Patient remains sedated and intubated, unresponsive to external stimuli. Patient did not tolerate recent weaning trial. [place] ICU team communicated with daughter over the phone and daughter agreed with PEG but not the trach. VS WNL, afebrile, Hb 8.0. Objective - Vital Signs/Intake and Output Vital Signs (last 24 hours): Temp Pulse Resp BP Pulse Ox 98.7 F 60 18 147/60 95 11/14/18 08:00 11/14/18 07:40 11/14/18 07:40 11/14/18 07:40 11/14/18 07:40 Intake and Output: 11/14/18 11/14/18 06:59 18:59 Intake Total 820 210 Output Total 1160 125 Balance -340 85 - Medications Medications: Current Medications Enoxaparin Sodium (Lovenox) 40 mg SC DAILY [facility] Last Admin: 11/13/18 09:48 Dose: 40 mg Famotidine (Pepcid) 20 mg GT Q12 [facility] Last Admin: 11/13/18 22:12 Dose: 20 mg Propofol (Diprivan) 1,000 mg in 100 mls @ 1.716 mls/hr IV .Q24H PRN; Protocol PRN Reason: TITRATE PER MD ORDER Last Admin: 11/14/18 00:49 Dose: 14.56 mcg/kg/min, 5 mls/hr Voriconazole 200 mg/ Sodium (Chloride) 100 mls @ 100 mls/hr IVPB Q12H [facility] Last Admin: 11/14/18 01:07 Dose: 100 mls/hr Ceftazidime/Avibactam 2.5 gm/ (Sodium Chloride) 100 mls @ 50 mls/hr IV Q8H [facility]; Protocol Last Admin: 11/14/18 03:35 Dose: 50 mls/hr Colistimethate Sodium 60 mg/ (Sodium Chloride) 100 mls @ 200 mls/hr IV Q12H [facility]; Protocol Last Admin: 11/14/18 00:00 Dose: 200 mls/hr Levetiracetam (Keppra) 500 mg PO BID [facility] Last Admin: 11/13/18 17:57 Dose: 500 mg Valproate Sodium (Depakene Oral Soln) 250 mg PO BID [facility] Last Admin: 11/13/18 17:57 Dose: 250 mg - Labs Labs: 11/14/18 06:02 11/14/18 06:02 PT 13.0 SECONDS (9.7-12.2) H 11/14/18 06:02 INR 1.2 11/14/18 06:02 APTT 41 SECONDS (21-34) H 11/13/18 13:48 - Constitutional Appears: In Acute Distress, Chronically Ill - Head Exam Head Exam: ATRAUMATIC, NORMAL INSPECTION, NORMOCEPHALIC - Eye Exam Eye Exam: EOMI, Normal appearance, PERRL - ENT Exam ENT Exam: Mucous Membranes Dry Additional comments: ETT - Neck Exam Neck Exam: Normal Inspection - Respiratory Exam Respiratory Exam: Decreased Breath Sounds, Respiratory Distress - GI/Abdominal Exam Additional comments: Post PEG - Rectal Exam Rectal Exam: Deferred - Exam Additional comments: Nelson cath - Back Exam Back Exam: NORMAL INSPECTION - Neurological Exam Neurological Exam: Motor Sensory Deficit Neuro motor strength exam: Left Upper Extremity: 0, Right Upper Extremity: 0, Left Lower Extremity: 0, Right Lower Extremity: 5 - Psychiatric Exam Psychiatric exam: Flat Affect - Skin Skin Exam: Dry, Pallor Assessment and Plan - Assessment and Plan (Free Text) Assessment: Patient's sister at bed side. Goals of care discussed with sister. I offered my concerns regarding patient's very complex clinical presentation and elicited her understanding and expectations of care. I specifically asked about family's feelings regarding trach placement, since it was refused initially. The sister said, patient's daughter has a final say about it and she was not sure what her plans were. Than, the sister let me talk to patient's brother Do lizzy Genao, Intesivist at [facility]. Doctor Genao was very familiar with patient's condition and supported trach creation as a buttermaker continuous churn assistance with vent support. Doctor Genao also shared with me, that patient was intubated in the past and was successfully extubated, what most likely gave the daughter a hope . Doctor Genao agrees that given current condition, weaning will most unlikely be the option and he said he will talk to family about trach. Sister was present during this discussion and was supportive of it. 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 Within last 3 years, his condition worsened and he become more bed ridden. The sister feels that family got used to patient being sick, what unfortunately become his and their norm. The family is returning on the and we agreed to meet again for further goals of care discussion. Impression * S/P PEG * In respiratory distress on MV * Immediate family is not fully understanding the condition and their impression is based on previous experience with patient * Patient's sister and brother, who is MD him self are supporting creation of trach and will speak to and daughter about it Suggestion * Continue current supportive measures * Further discuss goals of care upon family returns , including trach creation * Patient should be made DNR, given his complex medical condition and poor quality of life I shared my contact info with sister. We agreed to meet on the when family comes back. Advance care planing 35 min
[2018-11-14] MEDS: Valproic Acid 250 mg/5 ml UD Cup PO SCH ×2 (10:05→17:53)
[2018-11-14] MEDS: levETIRAcetam 100 mg/ml (5ml) Oral Syringe PO SCH ×2 (10:05→17:53)
[2018-11-14] MEDS: SODIUM CHLORIDE 0.9% IV SCH ×3 (10:27→22:32)
[2018-11-14] MEDS: COLISTIMETHATE IV SCH ×3 (10:27→22:32)
[2018-11-14] MEDS ORDERED: Dextrose 50% SYRINGE Inj (50 ml) IV STA (11:19)
[2018-11-14] MEDS ORDERED: Lactated Ringer's 1,000 ML IV ONE (12:04)
--- NOTE | 2018-11-14 12:04 | CP.CCUPN ---
<Francisca Stanton - Last Filed: 11/14/18 12:06> CCU Subjective - Physician Review Subjective (Free Text): ICU Progress Note for Dr. Whiting Patient seen and examined at bedside this morning. Patient resting comfortably in bed resting. Patient will be getting PEG this morning by surgery team. Due to patient condition, ROS unable to be obtained. CCU Objective - Vital Signs / Intake & Output Vital Signs (Last 4 hours): Vital Signs Temp Pulse Resp BP Pulse Ox 11/14/18 11:16 151/61 H 11/14/18 11:00 63 19 97 11/14/18 10:37 61 19 156/64 H 11/14/18 10:22 57 L 17 160/62 H 96 11/14/18 10:07 63 19 165/70 H 94 L 11/14/18 10:00 56 L 16 97 11/14/18 09:52 63 17 161/74 H 96 11/14/18 09:37 58 L 16 137/52 L 11/14/18 09:22 57 L 16 113/49 L 91 L 11/14/18 09:00 96.8 F L 87 15 94 L 11/14/18 08:58 92 H 16 109/55 L 96 11/14/18 08:53 80 14 11/14/18 08:00 98.7 F Intake and Output (Last 8hrs): Intake & Output 11/13/18 11/14/18 11/14/18 22:59 06:59 14:59 Intake Total 660 440 310 Output Total 650 750 155 Balance 10 -310 155 Weight 121 lb 3.2 oz Intake: IV 100 100 Intake, IV Amount 140 340 210 Right Distal Port 100 Internal Jugular Right Medial Port 40 40 10 Internal Jugular Right Proximal Port 100 300 100 Internal Jugular Tube Feeding 320 0 Other 200 Output: Urine 650 750 155 Urethral (Nelson) 650 750 155 - Physical Exam Head: Positive for: Atraumatic, Normocephalic Extroacular Muscles: Positive for: EOMI Conjunctiva: Positive for: Normal Respiratory/Chest: Positive for: Clear to Auscultation, Good Air Exchange. Negative for: Respiratory Distress Cardiovascular: Positive for: Regular Rate and Rhythm, Normal S1, S2 Abdomen: Negative for: Tenderness, Distention, Rebound, Guarding Upper Extremity: Positive for: Normal Inspection Lower Extremity: Positive for: Normal Inspection. Negative for: Edema Neurological: Positive for: Other (left leg with sudden kicks) Skin: Positive for: Warm, Dry, Normal Color Psychiatric: Positive for: Alert - Medications Active Medications: Active Medications Generic Name Dose Route Start Last Admin Trade Name Freq PRN Reason Stop Dose Admin Enoxaparin Sodium 40 mg 11/04/18 10:00 11/13/18 09:48 Lovenox SC 40 mg DAILY HUMBERTO Administration Famotidine 20 mg 11/11/18 10:00 11/14/18 10:06 Pepcid GT Not Given Q12 HUMBERTO Propofol 1,000 mg in 100 mls @ 1.716 mls/hr 11/09/18 09:06 11/14/18 00:49 Diprivan IV 14.56 mcg/kg/min .Q24H PRN 5 mls/hr TITRATE PER MD ORDER Administration Protocol 5 MCG/KG/MIN Voriconazole 200 mg/ Sodium 100 mls @ 100 mls/hr 11/10/18 02:00 11/14/18 01:07 Chloride IVPB 100 mls/hr Q12H HUMBERTO Administration Ceftazidime/Avibactam 2.5 gm/ 100 mls @ 50 mls/hr 11/13/18 12:00 11/14/18 11:24 Sodium Chloride IV 50 mls/hr Q8H HUMBERTO Administration Protocol Colistimethate Sodium 60 mg/ 100 mls @ 200 mls/hr 11/13/18 23:00 11/14/18 10:27 Sodium Chloride IV 200 mls/hr Q12H HUMBERTO Administration Protocol Levetiracetam 500 mg 11/03/18 21:00 11/14/18 10:05 Keppra PO Not Given BID HUMBERTO Valproate Sodium 250 mg 11/03/18 21:00 11/14/18 10:05 Depakene Oral Soln PO Not Given BID HUMBERTO - Patient Studies Lab Studies: Microbiology Studies 11/11/18 17:27 Gram Stain - Final Trachasp Sputum Culture - Final Acinetobacter Baumannii Lab Studies 11/14/18 11/14/18 11/14/18 Range/Units 11:48 06:02 06:02 WBC (4.8-10.8) K/uL RBC (4.40-5.90) Mil/uL Hgb (12.0-18.0) g/dL Hct (35.0-51.0) % MCV (80.0-94.0) fL MCH (27.0-31.0) pg MCHC (33.0-37.0) g/dL RDW (11.5-14.5) % Plt Count (130-400) K/uL MPV (7.2-11.7) fL Neut % (Auto) (50.0-75.0) % Lymph % (Auto) (20.0-40.0) % [place] % (Auto) (0.0-10.0) % Eos % (Auto) (0.0-4.0) % Baso % (Auto) (0.0-2.0) % Neut # (Auto) (1.8-7.0) K/uL Lymph # (Auto) (1.0-4.3) K/uL [place] # (Auto) (0.0-0.8) K/uL Eos # (Auto) (0.0-0.7) K/uL Baso # (Auto) (0.0-0.2) K/uL PT 13.0 H (9.7-12.2) SECONDS INR 1.2 APTT (21-34) SECONDS Puncture Site pCO2 (35-45) mm/Hg pO2 (80-100) mm/Hg HCO3 (21-28) mmol/L ABG pH (7.35-7.45) ABG Total CO2 (22-28) mmol/L ABG O2 Saturation (95-98) % ABG Base Excess (-2.0-3.0) mmol/L ABG Hemoglobin (11.7-17.4) g/dL ABG Carboxyhemoglobin (0.5-1.5) % POC ABG HHb (Measured) (0.0-5.0) % ABG Methemoglobin (0.0-3.0) % Ruiz Test A-a O2 Difference mm/Hg Respiratory Index Hgb O2 Saturation (95.0-98.0) % Vent Mode Mechanical Rate FiO2 % Tidal Volume PEEP Sodium 137 (132-148) mmol/L Potassium 3.4 L (3.6-5.2) mmol/L Chloride 104 (98-107) mmol/L Carbon Dioxide 30 (22-30) mmol/L Anion Gap 7 L (10-20) BUN 11 (9-20) mg/dL Creatinine 0.8 (0.8-1.5) mg/dL Est GFR ( Amer) > 60 Est GFR (Non-Af Amer) > 60 POC Glucose (mg/dL) 174 H (65-110) mg/dL Random Glucose 70 L D (75-110) mg/dL Calcium 7.6 L (8.6-10.4) mg/dl Phosphorus 2.9 (2.5-4.5) mg/dL Magnesium 2.0 (1.6-2.3) mg/dL Total Bilirubin 0.2 (0.2-1.3) mg/dL AST 20 (17-59) U/L ALT 6 L D (21-72) U/L Alkaline Phosphatase 152 H (38-126) U/L Total Protein 6.7 (6.3-8.3) g/dL Albumin 2.3 L (3.5-5.0) g/dL Globulin 4.4 H (2.2-3.9) gm/dL Albumin/Globulin Ratio 0.5 L (1.0-2.1) Blood Type Antibody Screen 11/14/18 11/14/18 11/14/18 Range/Units 06:02 05:06 05:04 WBC 8.3 (4.8-10.8) K/uL RBC 3.12 L (4.40-5.90) Mil/uL Hgb 8.0 L (12.0-18.0) g/dL Hct 24.9 L (35.0-51.0) % MCV 79.9 L (80.0-94.0) fL MCH 25.6 L (27.0-31.0) pg MCHC 32.0 L (33.0-37.0) g/dL RDW 20.8 H (11.5-14.5) % Plt Count 323 (130-400) K/uL MPV 9.2 (7.2-11.7) fL Neut % (Auto) 67.4 (50.0-75.0) % Lymph % (Auto) 26.1 (20.0-40.0) % [place] % (Auto) 4.7 (0.0-10.0) % Eos % (Auto) 1.3 (0.0-4.0) % Baso % (Auto) 0.5 (0.0-2.0) % Neut # (Auto) 5.6 (1.8-7.0) K/uL Lymph # (Auto) 2.2 (1.0-4.3) K/uL [place] # (Auto) 0.4 (0.0-0.8) K/uL Eos # (Auto) 0.1 (0.0-0.7) K/uL Baso # (Auto) 0.0 (0.0-0.2) K/uL PT (9.7-12.2) SECONDS INR APTT (21-34) SECONDS Puncture Site pCO2 (35-45) mm/Hg pO2 (80-100) mm/Hg HCO3 (21-28) mmol/L ABG pH (7.35-7.45) ABG Total CO2 (22-28) mmol/L ABG O2 Saturation (95-98) % ABG Base Excess (-2.0-3.0) mmol/L ABG Hemoglobin (11.7-17.4) g/dL ABG Carboxyhemoglobin (0.5-1.5) % POC ABG HHb (Measured) (0.0-5.0) % ABG Methemoglobin (0.0-3.0) % Ruiz Test A-a O2 Difference mm/Hg Respiratory Index Hgb O2 Saturation (95.0-98.0) % Vent Mode Mechanical Rate FiO2 % Tidal Volume PEEP Sodium (132-148) mmol/L Potassium (3.6-5.2) mmol/L Chloride (98-107) mmol/L Carbon Dioxide (22-30) mmol/L Anion Gap (10-20) BUN (9-20) mg/dL Creatinine (0.8-1.5) mg/dL Est GFR ( Amer) Est GFR (Non-Af Amer) POC Glucose (mg/dL) 74 64 L (65-110) mg/dL Random Glucose (75-110) mg/dL Calcium (8.6-10.4) mg/dl Phosphorus (2.5-4.5) mg/dL Magnesium (1.6-2.3) mg/dL Total Bilirubin (0.2-1.3) mg/dL AST (17-59) U/L ALT (21-72) U/L Alkaline Phosphatase (38-126) U/L Total Protein (6.3-8.3) g/dL Albumin (3.5-5.0) g/dL Globulin (2.2-3.9) gm/dL Albumin/Globulin Ratio (1.0-2.1) Blood Type Antibody Screen 11/14/18 11/14/18 11/13/18 Range/Units 04:35 00:01 17:27 WBC (4.8-10.8) K/uL RBC (4.40-5.90) Mil/uL Hgb (12.0-18.0) g/dL Hct (35.0-51.0) % MCV (80.0-94.0) fL MCH (27.0-31.0) pg MCHC (33.0-37.0) g/dL RDW (11.5-14.5) % Plt Count (130-400) K/uL MPV (7.2-11.7) fL Neut % (Auto) (50.0-75.0) % Lymph % (Auto) (20.0-40.0) % [place] % (Auto) (0.0-10.0) % Eos % (Auto) (0.0-4.0) % Baso % (Auto) (0.0-2.0) % Neut # (Auto) (1.8-7.0) K/uL Lymph # (Auto) (1.0-4.3) K/uL [place] # (Auto) (0.0-0.8) K/uL Eos # (Auto) (0.0-0.7) K/uL Baso # (Auto) (0.0-0.2) K/uL PT (9.7-12.2) SECONDS INR APTT (21-34) SECONDS Puncture Site Rr pCO2 37 (35-45) mm/Hg pO2 97 (80-100) mm/Hg HCO3 27.4 (21-28) mmol/L ABG pH 7.47 H (7.35-7.45) ABG Total CO2 28.0 (22-28) mmol/L ABG O2 Saturation 98.8 H (95-98) % ABG Base Excess 3.2 H (-2.0-3.0) mmol/L ABG Hemoglobin 11.2 L (11.7-17.4) g/dL ABG Carboxyhemoglobin 1.9 H (0.5-1.5) % POC ABG HHb (Measured) 1.2 (0.0-5.0) % ABG Methemoglobin 0.9 (0.0-3.0) % Ruiz Test Pos A-a O2 Difference 142.0 mm/Hg Respiratory Index 1.5 Hgb O2 Saturation 96.1 (95.0-98.0) % Vent Mode Prvc Mechanical Rate 16 FiO2 40.0 % Tidal Volume 450 PEEP 5 Sodium (132-148) mmol/L Potassium (3.6-5.2) mmol/L Chloride (98-107) mmol/L Carbon Dioxide (22-30) mmol/L Anion Gap (10-20) BUN (9-20) mg/dL Creatinine (0.8-1.5) mg/dL Est GFR ( Amer) Est GFR (Non-Af Amer) POC Glucose (mg/dL) 89 75 (65-110) mg/dL Random Glucose (75-110) mg/dL Calcium (8.6-10.4) mg/dl Phosphorus (2.5-4.5) mg/dL Magnesium (1.6-2.3) mg/dL Total Bilirubin (0.2-1.3) mg/dL AST (17-59) U/L ALT (21-72) U/L Alkaline Phosphatase (38-126) U/L Total Protein (6.3-8.3) g/dL Albumin (3.5-5.0) g/dL Globulin (2.2-3.9) gm/dL Albumin/Globulin Ratio (1.0-2.1) Blood Type Antibody Screen 11/13/18 11/13/18 11/13/18 Range/Units 13:48 13:48 13:48 WBC 9.1 (4.8-10.8) K/uL RBC 3.04 L (4.40-5.90) Mil/uL Hgb 7.7 L (12.0-18.0) g/dL Hct 23.9 L (35.0-51.0) % MCV 78.7 L (80.0-94.0) fL MCH 25.3 L (27.0-31.0) pg MCHC 32.1 L (33.0-37.0) g/dL RDW 20.2 H (11.5-14.5) % Plt Count 310 (130-400) K/uL MPV 8.6 (7.2-11.7) fL Neut % (Auto) 57.6 (50.0-75.0) % Lymph % (Auto) 36.2 (20.0-40.0) % [place] % (Auto) 4.0 (0.0-10.0) % Eos % (Auto) 1.7 (0.0-4.0) % Baso % (Auto) 0.5 (0.0-2.0) % Neut # (Auto) 5.3 (1.8-7.0) K/uL Lymph # (Auto) 3.3 (1.0-4.3) K/uL [place] # (Auto) 0.4 (0.0-0.8) K/uL Eos # (Auto) 0.2 (0.0-0.7) K/uL Baso # (Auto) 0.0 (0.0-0.2) K/uL PT 12.6 H (9.7-12.2) SECONDS INR 1.2 APTT 41 H (21-34) SECONDS Puncture Site pCO2 (35-45) mm/Hg pO2 (80-100) mm/Hg HCO3 (21-28) mmol/L ABG pH (7.35-7.45) ABG Total CO2 (22-28) mmol/L ABG O2 Saturation (95-98) % ABG Base Excess (-2.0-3.0) mmol/L ABG Hemoglobin (11.7-17.4) g/dL ABG Carboxyhemoglobin (0.5-1.5) % POC ABG HHb (Measured) (0.0-5.0) % ABG Methemoglobin (0.0-3.0) % Ruiz Test A-a O2 Difference mm/Hg Respiratory Index Hgb O2 Saturation (95.0-98.0) % Vent Mode Mechanical Rate FiO2 % Tidal Volume PEEP Sodium (132-148) mmol/L Potassium (3.6-5.2) mmol/L Chloride (98-107) mmol/L Carbon Dioxide (22-30) mmol/L Anion Gap (10-20) BUN (9-20) mg/dL Creatinine (0.8-1.5) mg/dL Est GFR ( Amer) Est GFR (Non-Af Amer) POC Glucose (mg/dL) (65-110) mg/dL Random Glucose (75-110) mg/dL Calcium (8.6-10.4) mg/dl Phosphorus (2.5-4.5) mg/dL Magnesium (1.6-2.3) mg/dL Total Bilirubin (0.2-1.3) mg/dL AST (17-59) U/L ALT (21-72) U/L Alkaline Phosphatase (38-126) U/L Total Protein (6.3-8.3) g/dL Albumin (3.5-5.0) g/dL Globulin (2.2-3.9) gm/dL Albumin/Globulin Ratio (1.0-2.1) Blood Type B POSITIVE Antibody Screen Negative 11/13/18 11/13/18 11/13/18 Range/Units 11:39 05:55 00:08 WBC (4.8-10.8) K/uL RBC (4.40-5.90) Mil/uL Hgb (12.0-18.0) g/dL Hct (35.0-51.0) % MCV (80.0-94.0) fL MCH (27.0-31.0) pg MCHC (33.0-37.0) g/dL RDW (11.5-14.5) % Plt Count (130-400) K/uL MPV (7.2-11.7) fL Neut % (Auto) (50.0-75.0) % Lymph % (Auto) (20.0-40.0) % [place] % (Auto) (0.0-10.0) % Eos % (Auto) (0.0-4.0) % Baso % (Auto) (0.0-2.0) % Neut # (Auto) (1.8-7.0) K/uL Lymph # (Auto) (1.0-4.3) K/uL [place] # (Auto) (0.0-0.8) K/uL Eos # (Auto) (0.0-0.7) K/uL Baso # (Auto) (0.0-0.2) K/uL PT (9.7-12.2) SECONDS INR APTT (21-34) SECONDS Puncture Site pCO2 (35-45) mm/Hg pO2 (80-100) mm/Hg HCO3 (21-28) mmol/L ABG pH (7.35-7.45) ABG Total CO2 (22-28) mmol/L ABG O2 Saturation (95-98) % ABG Base Excess (-2.0-3.0) mmol/L ABG Hemoglobin (11.7-17.4) g/dL ABG Carboxyhemoglobin (0.5-1.5) % POC ABG HHb (Measured) (0.0-5.0) % ABG Methemoglobin (0.0-3.0) % Ruiz Test A-a O2 Difference mm/Hg Respiratory Index Hgb O2 Saturation (95.0-98.0) % Vent Mode Mechanical Rate FiO2 % Tidal Volume PEEP Sodium (132-148) mmol/L Potassium (3.6-5.2) mmol/L Chloride (98-107) mmol/L Carbon Dioxide (22-30) mmol/L Anion Gap (10-20) BUN (9-20) mg/dL Creatinine (0.8-1.5) mg/dL Est GFR ( Amer) Est GFR (Non-Af Amer) POC Glucose (mg/dL) 93 87 97 (65-110) mg/dL Random Glucose (75-110) mg/dL Calcium (8.6-10.4) mg/dl Phosphorus (2.5-4.5) mg/dL Magnesium (1.6-2.3) mg/dL Total Bilirubin (0.2-1.3) mg/dL AST (17-59) U/L ALT (21-72) U/L Alkaline Phosphatase (38-126) U/L Total Protein (6.3-8.3) g/dL Albumin (3.5-5.0) g/dL Globulin (2.2-3.9) gm/dL Albumin/Globulin Ratio (1.0-2.1) Blood Type Antibody Screen 11/12/18 11/12/18 Range/Units 18:10 11:09 WBC (4.8-10.8) K/uL RBC (4.40-5.90) Mil/uL Hgb (12.0-18.0) g/dL Hct (35.0-51.0) % MCV (80.0-94.0) fL MCH (27.0-31.0) pg MCHC (33.0-37.0) g/dL RDW (11.5-14.5) % Plt Count (130-400) K/uL MPV (7.2-11.7) fL Neut % (Auto) (50.0-75.0) % Lymph % (Auto) (20.0-40.0) % [place] % (Auto) (0.0-10.0) % Eos % (Auto) (0.0-4.0) % Baso % (Auto) (0.0-2.0) % Neut # (Auto) (1.8-7.0) K/uL Lymph # (Auto) (1.0-4.3) K/uL [place] # (Auto) (0.0-0.8) K/uL Eos # (Auto) (0.0-0.7) K/uL Baso # (Auto) (0.0-0.2) K/uL PT (9.7-12.2) SECONDS INR APTT (21-34) SECONDS Puncture Site pCO2 (35-45) mm/Hg pO2 (80-100) mm/Hg HCO3 (21-28) mmol/L ABG pH (7.35-7.45) ABG Total CO2 (22-28) mmol/L ABG O2 Saturation (95-98) % ABG Base Excess (-2.0-3.0) mmol/L ABG Hemoglobin (11.7-17.4) g/dL ABG Carboxyhemoglobin (0.5-1.5) % POC ABG HHb (Measured) (0.0-5.0) % ABG Methemoglobin (0.0-3.0) % Ruiz Test A-a O2 Difference mm/Hg Respiratory Index Hgb O2 Saturation (95.0-98.0) % Vent Mode Mechanical Rate FiO2 % Tidal Volume PEEP Sodium (132-148) mmol/L Potassium (3.6-5.2) mmol/L Chloride (98-107) mmol/L Carbon Dioxide (22-30) mmol/L Anion Gap (10-20) BUN (9-20) mg/dL Creatinine (0.8-1.5) mg/dL Est GFR ( Amer) Est GFR (Non-Af Amer) POC Glucose (mg/dL) 85 92 (65-110) mg/dL Random Glucose (75-110) mg/dL Calcium (8.6-10.4) mg/dl Phosphorus (2.5-4.5) mg/dL Magnesium (1.6-2.3) mg/dL Total Bilirubin (0.2-1.3) mg/dL AST (17-59) U/L ALT (21-72) U/L Alkaline Phosphatase (38-126) U/L Total Protein (6.3-8.3) g/dL Albumin (3.5-5.0) g/dL Globulin (2.2-3.9) gm/dL Albumin/Globulin Ratio (1.0-2.1) Blood Type Antibody Screen Laboratory Results - last 24 hr 11/12/18 11/12/18 11/13/18 11:09 18:10 00:08 WBC RBC Hgb Hct MCV MCH MCHC RDW Plt Count MPV Neut % (Auto) Lymph % (Auto) [place] % (Auto) Eos % (Auto) Baso % (Auto) Neut # (Auto) Lymph # (Auto) [place] # (Auto) Eos # (Auto) Baso # (Auto) PT INR APTT Puncture Site pCO2 pO2 HCO3 ABG pH ABG Total CO2 ABG O2 Saturation ABG Base Excess ABG Hemoglobin ABG Carboxyhemoglobin POC ABG HHb (Measured) ABG Methemoglobin Ruiz Test A-a O2 Difference Respiratory Index Hgb O2 Saturation Vent Mode Mechanical Rate FiO2 Tidal Volume PEEP Sodium Potassium Chloride Carbon Dioxide Anion Gap BUN Creatinine Est GFR ( Amer) Est GFR (Non-Af Amer) POC Glucose (mg/dL) 92 85 97 Random Glucose Calcium Phosphorus Magnesium Total Bilirubin AST ALT Alkaline Phosphatase Total Protein Albumin Globulin Albumin/Globulin Ratio Blood Type Antibody Screen 11/13/18 11/13/18 11/13/18 05:55 11:39 13:48 WBC RBC Hgb Hct MCV MCH MCHC RDW Plt Count MPV Neut % (Auto) Lymph % (Auto) [place] % (Auto) Eos % (Auto) Baso % (Auto) Neut # (Auto) Lymph # (Auto) [place] # (Auto) Eos # (Auto) Baso # (Auto) PT 12.6 H INR 1.2 APTT 41 H Puncture Site pCO2 pO2 HCO3 ABG pH ABG Total CO2 ABG O2 Saturation ABG Base Excess ABG Hemoglobin ABG Carboxyhemoglobin POC ABG HHb (Measured) ABG Methemoglobin Ruiz Test A-a O2 Difference Respiratory Index Hgb O2 Saturation Vent Mode Mechanical Rate FiO2 Tidal Volume PEEP Sodium Potassium Chloride Carbon Dioxide Anion Gap BUN Creatinine Est GFR ( Amer) Est GFR (Non-Af Amer) POC Glucose (mg/dL) 87 93 Random Glucose Calcium Phosphorus Magnesium Total Bilirubin AST ALT Alkaline Phosphatase Total Protein Albumin Globulin Albumin/Globulin Ratio Blood Type Antibody Screen 11/13/18 11/13/18 11/13/18 13:48 13:48 17:27 WBC 9.1 RBC 3.04 L Hgb 7.7 L Hct 23.9 L MCV 78.7 L MCH 25.3 L MCHC 32.1 L RDW 20.2 H Plt Count 310 MPV 8.6 Neut % (Auto) 57.6 Lymph % (Auto) 36.2 [place] % (Auto) 4.0 Eos % (Auto) 1.7 Baso % (Auto) 0.5 Neut # (Auto) 5.3 Lymph # (Auto) 3.3 [place] # (Auto) 0.4 Eos # (Auto) 0.2 Baso # (Auto) 0.0 PT INR APTT Puncture Site pCO2 pO2 HCO3 ABG pH ABG Total CO2 ABG O2 Saturation ABG Base Excess ABG Hemoglobin ABG Carboxyhemoglobin POC ABG HHb (Measured) ABG Methemoglobin Ruiz Test A-a O2 Difference Respiratory Index Hgb O2 Saturation Vent Mode Mechanical Rate FiO2 Tidal Volume PEEP Sodium Potassium Chloride Carbon Dioxide Anion Gap BUN Creatinine Est GFR ( Amer) Est GFR (Non-Af Amer) POC Glucose (mg/dL) 75 Random Glucose Calcium Phosphorus Magnesium Total Bilirubin AST ALT Alkaline Phosphatase Total Protein Albumin Globulin Albumin/Globulin Ratio Blood Type B POSITIVE Antibody Screen Negative 11/14/18 11/14/18 11/14/18 00:01 04:35 05:04 WBC RBC Hgb Hct MCV MCH MCHC RDW Plt Count MPV Neut % (Auto) Lymph % (Auto) [place] % (Auto) Eos % (Auto) Baso % (Auto) Neut # (Auto) Lymph # (Auto) [place] # (Auto) Eos # (Auto) Baso # (Auto) PT INR APTT Puncture Site Rr pCO2 37 pO2 97 HCO3 27.4 ABG pH 7.47 H ABG Total CO2 28.0 ABG O2 Saturation 98.8 H ABG Base Excess 3.2 H ABG Hemoglobin 11.2 L ABG Carboxyhemoglobin 1.9 H POC ABG HHb (Measured) 1.2 ABG Methemoglobin 0.9 Ruiz Test Pos A-a O2 Difference 142.0 Respiratory Index 1.5 Hgb O2 Saturation 96.1 Vent Mode Prvc Mechanical Rate 16 FiO2 40.0 Tidal Volume 450 PEEP 5 Sodium Potassium Chloride Carbon Dioxide Anion Gap BUN Creatinine Est GFR ( Amer) Est GFR (Non-Af Amer) POC Glucose (mg/dL) 89 64 L Random Glucose Calcium Phosphorus Magnesium Total Bilirubin AST ALT Alkaline Phosphatase Total Protein Albumin Globulin Albumin/Globulin Ratio Blood Type Antibody Screen 11/14/18 11/14/18 11/14/18 05:06 06:02 06:02 WBC 8.3 RBC 3.12 L Hgb 8.0 L Hct 24.9 L MCV 79.9 L MCH 25.6 L MCHC 32.0 L RDW 20.8 H Plt Count 323 MPV 9.2 Neut % (Auto) 67.4 Lymph % (Auto) 26.1 [place] % (Auto) 4.7 Eos % (Auto) 1.3 Baso % (Auto) 0.5 Neut # (Auto) 5.6 Lymph # (Auto) 2.2 [place] # (Auto) 0.4 Eos # (Auto) 0.1 Baso # (Auto) 0.0 PT INR APTT Puncture Site pCO2 pO2 HCO3 ABG pH ABG Total CO2 ABG O2 Saturation ABG Base Excess ABG Hemoglobin ABG Carboxyhemoglobin POC ABG HHb (Measured) ABG Methemoglobin Ruiz Test A-a O2 Difference Respiratory Index Hgb O2 Saturation Vent Mode Mechanical Rate FiO2 Tidal Volume PEEP Sodium 137 Potassium 3.4 L Chloride 104 Carbon Dioxide 30 Anion Gap 7 L BUN 11 Creatinine 0.8 Est GFR ( Amer) > 60 Est GFR (Non-Af Amer) > 60 POC Glucose (mg/dL) 74 Random Glucose 70 L D Calcium 7.6 L Phosphorus 2.9 Magnesium 2.0 Total Bilirubin 0.2 AST 20 ALT 6 L D Alkaline Phosphatase 152 H Total Protein 6.7 Albumin 2.3 L Globulin 4.4 H Albumin/Globulin Ratio 0.5 L Blood Type Antibody Screen 11/14/18 11/14/18 06:02 11:48 WBC RBC Hgb Hct MCV MCH MCHC RDW Plt Count MPV Neut % (Auto) Lymph % (Auto) [place] % (Auto) Eos % (Auto) Baso % (Auto) Neut # (Auto) Lymph # (Auto) [place] # (Auto) Eos # (Auto) Baso # (Auto) PT 13.0 H INR 1.2 APTT Puncture Site pCO2 pO2 HCO3 ABG pH ABG Total CO2 ABG O2 Saturation ABG Base Excess ABG Hemoglobin ABG Carboxyhemoglobin POC ABG HHb (Measured) ABG Methemoglobin Ruiz Test A-a O2 Difference Respiratory Index Hgb O2 Saturation Vent Mode Mechanical Rate FiO2 Tidal Volume PEEP Sodium Potassium Chloride Carbon Dioxide Anion Gap BUN Creatinine Est GFR ( Amer) Est GFR (Non-Af Amer) POC Glucose (mg/dL) 174 H Random Glucose Calcium Phosphorus Magnesium Total Bilirubin AST ALT Alkaline Phosphatase Total Protein Albumin Globulin Albumin/Globulin Ratio Blood Type Antibody Screen Radiology Impressions: Radiology Impressions Chest X-Ray 11/14/18 04:00 IMPRESSION: Increasing bilateral patchy opacities. Possible developing pneumonia. Follow-up advised. Fingerstick Blood Sugar Results: 74 Critical Care Progress Note - Nutrition Nutrition: Nutrition Category Date Time Status NPO Diet [DIET] Diets 11/14/18 Breakfast Active Assessment/Plan - Assessment and Plan (Free Text) Assessment: 63 y/o male with multiple medical problems including PMHx of seizures, DM, CVA, and dementia with respiratory failure. Neuro -seizures: continue with keppra and valproate -history of CVA, paraplegia, and dementia -not on precedex CV -ECHO completed 11/05. Shows thickened aortic valve compared to 12/06. ID, Dr. Fine, recs cardiology consult to r/o endocarditis and OLEG. -cardiology, Dr. Anderson, consult ordered - Dr. Omar Urbina's competitive intelligence analyst preference -OLEG ordered Pulm -admitted with hypercapnic respiratory failure -daily CXR and ABG -[facility] 450/50/20/5 -> 450/40/16/5 on 11/14. Pending spontaneous breathing trial later today 11/14 -plan for tracheostomy possible. Per palliative care initial consult 11/14 patient's brother agrees with tracheostomy and will speak to family. GI -no active issues Renal -renal insufficiency -IVF - LR at 100 mL/hr d/eleno due to improved renal condition ID -CXR: bilateral pulmonary infiltrates, hx aspiration PNA -monitor VS and mental status - patient hemodynamically stable currently -11/11: trach asp grew acinobacter baumanii -> contact precautions ordered and abx changed by Dr. Fine as the following: --zosyn started 11/04 and d/eleno 11/13 -> ceftazidime/avibactam started 11/13 - --vanc started 10am on 11/05 --voriconazole given due to past cx positive for asperigillosis, started 11/10 -11/05: final blood culture - s. aureus and coagulase negative staph -ID, Dr. Fine, following. Appreciate recs. Endo -DM: ISS, hypoglycemia protocol -patient 11/14 with hypoglycemia 50 mg/dL -> s/p D50 -resume accuchecks q6h, especially in light of NPO for surgery 11/14. 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 Dispo: Will need to discuss patient prognosis and plan of care at length with family. Palliative care aware of case and set family meeting on Nov 20, 2018. case discussed with Dr. Johanne Stanton PGY1 <Ronni Whiting - Last Filed: 11/14/18 21:10> CCU Objective - Vital Signs / Intake & Output Vital Signs (Last 4 hours): Vital Signs Temp Pulse Resp BP Pulse Ox 11/14/18 20:00 989.7 F H 78 25 H 97 11/14/18 19:47 76 23 113/50 L 96 12/27/18 19:07 71 20 95/47 L 95 11/14/18 17:47 81 18 103/46 L 92 L Intake and Output (Last 8hrs): Intake & Output 11/14/18 11/14/18 11/14/18 06:59 14:59 22:59 Intake Total 440 497 745.0 Output Total 750 400 350 Balance -310 97 395.0 Weight 121 lb 3.2 oz Intake: IV 100 135 22.5 Intake, IV Amount 340 362 382.5 Right Distal Port 252 350 Internal Jugular Right Medial Port 40 10 32.5 Internal Jugular Right Proximal Port 300 100 Internal Jugular Tube Feeding 0 240 Other 100 Output: Urine 750 400 350 Urethral (Nelson) 750 400 350 - Medications Active Medications: Active Medications Generic Name Dose Route Start Last Admin Trade Name Freq PRN Reason Stop Dose Admin Enoxaparin Sodium 40 mg 11/04/18 10:00 11/13/18 09:48 Lovenox SC 40 mg DAILY HUMBERTO Administration Famotidine 20 mg 11/11/18 10:00 11/14/18 10:06 Pepcid GT Not Given Q12 HUMBERTO Propofol 1,000 mg in 100 mls @ 1.716 mls/hr 11/09/18 09:06 11/14/18 19:00 Diprivan IV 14.56 mcg/kg/min .Q24H PRN 5 mls/hr TITRATE PER MD ORDER Titration Protocol 5 MCG/KG/MIN Voriconazole 200 mg/ Sodium 100 mls @ 100 mls/hr 11/10/18 02:00 11/14/18 14:32 Chloride IVPB 100 mls/hr Q12H HUMBERTO Administration Ceftazidime/Avibactam 2.5 gm/ 100 mls @ 50 mls/hr 11/13/18 12:00 11/14/18 20:22 Sodium Chloride IV 50 mls/hr Q8H HUMBERTO Administration Protocol Colistimethate Sodium 60 mg/ 100 mls @ 200 mls/hr 11/13/18 23:00 11/14/18 10:27 Sodium Chloride IV 200 mls/hr Q12H HUMBERTO Administration Protocol Levetiracetam 500 mg 11/03/18 21:00 11/14/18 17:53 Keppra PO 500 mg BID HUMBERTO Administration Valproate Sodium 250 mg 11/03/18 21:00 11/14/18 17:53 Depakene Oral Soln PO 250 mg BID HUMBERTO Administration - Patient Studies Lab Studies: Microbiology Studies 11/11/18 17:27 Gram Stain - Final Trachasp Sputum Culture - Final Acinetobacter Baumannii Lab Studies 11/14/18 11/14/18 11/14/18 Range/Units 17:48 11:48 11:16 WBC (4.8-10.8) K/uL RBC (4.40-5.90) Mil/uL Hgb (12.0-18.0) g/dL Hct (35.0-51.0) % MCV (80.0-94.0) fL MCH (27.0-31.0) pg MCHC (33.0-37.0) g/dL RDW (11.5-14.5) % Plt Count (130-400) K/uL MPV (7.2-11.7) fL Neut % (Auto) (50.0-75.0) % Lymph % (Auto) (20.0-40.0) % [place] % (Auto) (0.0-10.0) % Eos % (Auto) (0.0-4.0) % Baso % (Auto) (0.0-2.0) % Neut # (Auto) (1.8-7.0) K/uL Lymph # (Auto) (1.0-4.3) K/uL [place] # (Auto) (0.0-0.8) K/uL Eos # (Auto) (0.0-0.7) K/uL Baso # (Auto) (0.0-0.2) K/uL PT (9.7-12.2) SECONDS INR Puncture Site pCO2 (35-45) mm/Hg pO2 (80-100) mm/Hg HCO3 (21-28) mmol/L ABG pH (7.35-7.45) ABG Total CO2 (22-28) mmol/L ABG O2 Saturation (95-98) % ABG Base Excess (-2.0-3.0) mmol/L ABG Hemoglobin (11.7-17.4) g/dL ABG Carboxyhemoglobin (0.5-1.5) % POC ABG HHb (Measured) (0.0-5.0) % ABG Methemoglobin (0.0-3.0) % Ruiz Test A-a O2 Difference mm/Hg Respiratory Index Hgb O2 Saturation (95.0-98.0) % Vent Mode Mechanical Rate FiO2 % Tidal Volume PEEP Sodium (132-148) mmol/L Potassium (3.6-5.2) mmol/L Chloride (98-107) mmol/L Carbon Dioxide (22-30) mmol/L Anion Gap (10-20) BUN (9-20) mg/dL Creatinine (0.8-1.5) mg/dL Est GFR ( Amer) Est GFR (Non-Af Amer) POC Glucose (mg/dL) 90 174 H 63 L (65-110) mg/dL Random Glucose (75-110) mg/dL Calcium (8.6-10.4) mg/dl Phosphorus (2.5-4.5) mg/dL Magnesium (1.6-2.3) mg/dL Total Bilirubin (0.2-1.3) mg/dL AST (17-59) U/L ALT (21-72) U/L Alkaline Phosphatase (38-126) U/L Total Protein (6.3-8.3) g/dL Albumin (3.5-5.0) g/dL Globulin (2.2-3.9) gm/dL Albumin/Globulin Ratio (1.0-2.1) 11/14/18 11/14/18 11/14/18 Range/Units 11:12 06:02 06:02 WBC (4.8-10.8) K/uL RBC (4.40-5.90) Mil/uL Hgb (12.0-18.0) g/dL Hct (35.0-51.0) % MCV (80.0-94.0) fL MCH (27.0-31.0) pg MCHC (33.0-37.0) g/dL RDW (11.5-14.5) % Plt Count (130-400) K/uL MPV (7.2-11.7) fL Neut % (Auto) (50.0-75.0) % Lymph % (Auto) (20.0-40.0) % [place] % (Auto) (0.0-10.0) % Eos % (Auto) (0.0-4.0) % Baso % (Auto) (0.0-2.0) % Neut # (Auto) (1.8-7.0) K/uL Lymph # (Auto) (1.0-4.3) K/uL [place] # (Auto) (0.0-0.8) K/uL Eos # (Auto) (0.0-0.7) K/uL Baso # (Auto) (0.0-0.2) K/uL PT 13.0 H (9.7-12.2) SECONDS INR 1.2 Puncture Site pCO2 (35-45) mm/Hg pO2 (80-100) mm/Hg HCO3 (21-28) mmol/L ABG pH (7.35-7.45) ABG Total CO2 (22-28) mmol/L ABG O2 Saturation (95-98) % ABG Base Excess (-2.0-3.0) mmol/L ABG Hemoglobin (11.7-17.4) g/dL ABG Carboxyhemoglobin (0.5-1.5) % POC ABG HHb (Measured) (0.0-5.0) % ABG Methemoglobin (0.0-3.0) % Ruiz Test A-a O2 Difference mm/Hg Respiratory Index Hgb O2 Saturation (95.0-98.0) % Vent Mode Mechanical Rate FiO2 % Tidal Volume PEEP Sodium 137 (132-148) mmol/L Potassium 3.4 L (3.6-5.2) mmol/L Chloride 104 (98-107) mmol/L Carbon Dioxide 30 (22-30) mmol/L Anion Gap 7 L (10-20) BUN 11 (9-20) mg/dL Creatinine 0.8 (0.8-1.5) mg/dL Est GFR ( Amer) > 60 Est GFR (Non-Af Amer) > 60 POC Glucose (mg/dL) 55 L (65-110) mg/dL Random Glucose 70 L D (75-110) mg/dL Calcium 7.6 L (8.6-10.4) mg/dl Phosphorus 2.9 (2.5-4.5) mg/dL Magnesium 2.0 (1.6-2.3) mg/dL Total Bilirubin 0.2 (0.2-1.3) mg/dL AST 20 (17-59) U/L ALT 6 L D (21-72) U/L Alkaline Phosphatase 152 H (38-126) U/L Total Protein 6.7 (6.3-8.3) g/dL Albumin 2.3 L (3.5-5.0) g/dL Globulin 4.4 H (2.2-3.9) gm/dL Albumin/Globulin Ratio 0.5 L (1.0-2.1) 11/14/18 11/14/18 11/14/18 Range/Units 06:02 05:06 05:04 WBC 8.3 (4.8-10.8) K/uL RBC 3.12 L (4.40-5.90) Mil/uL Hgb 8.0 L (12.0-18.0) g/dL Hct 24.9 L (35.0-51.0) % MCV 79.9 L (80.0-94.0) fL MCH 25.6 L (27.0-31.0) pg MCHC 32.0 L (33.0-37.0) g/dL RDW 20.8 H (11.5-14.5) % Plt Count 323 (130-400) K/uL MPV 9.2 (7.2-11.7) fL Neut % (Auto) 67.4 (50.0-75.0) % Lymph % (Auto) 26.1 (20.0-40.0) % [place] % (Auto) 4.7 (0.0-10.0) % Eos % (Auto) 1.3 (0.0-4.0) % Baso % (Auto) 0.5 (0.0-2.0) % Neut # (Auto) 5.6 (1.8-7.0) K/uL Lymph # (Auto) 2.2 (1.0-4.3) K/uL [place] # (Auto) 0.4 (0.0-0.8) K/uL Eos # (Auto) 0.1 (0.0-0.7) K/uL Baso # (Auto) 0.0 (0.0-0.2) K/uL PT (9.7-12.2) SECONDS INR Puncture Site pCO2 (35-45) mm/Hg pO2 (80-100) mm/Hg HCO3 (21-28) mmol/L ABG pH (7.35-7.45) ABG Total CO2 (22-28) mmol/L ABG O2 Saturation (95-98) % ABG Base Excess (-2.0-3.0) mmol/L ABG Hemoglobin (11.7-17.4) g/dL ABG Carboxyhemoglobin (0.5-1.5) % POC ABG HHb (Measured) (0.0-5.0) % ABG Methemoglobin (0.0-3.0) % Ruiz Test A-a O2 Difference mm/Hg Respiratory Index Hgb O2 Saturation (95.0-98.0) % Vent Mode Mechanical Rate FiO2 % Tidal Volume PEEP Sodium (132-148) mmol/L Potassium (3.6-5.2) mmol/L Chloride (98-107) mmol/L Carbon Dioxide (22-30) mmol/L Anion Gap (10-20) BUN (9-20) mg/dL Creatinine (0.8-1.5) mg/dL Est GFR ( Amer) Est GFR (Non-Af Amer) POC Glucose (mg/dL) 74 64 L (65-110) mg/dL Random Glucose (75-110) mg/dL Calcium (8.6-10.4) mg/dl Phosphorus (2.5-4.5) mg/dL Magnesium (1.6-2.3) mg/dL Total Bilirubin (0.2-1.3) mg/dL AST (17-59) U/L ALT (21-72) U/L Alkaline Phosphatase (38-126) U/L Total Protein (6.3-8.3) g/dL Albumin (3.5-5.0) g/dL Globulin (2.2-3.9) gm/dL Albumin/Globulin Ratio (1.0-2.1) 11/14/18 11/14/18 Range/Units 04:35 00:01 WBC (4.8-10.8) K/uL RBC (4.40-5.90) Mil/uL Hgb (12.0-18.0) g/dL Hct (35.0-51.0) % MCV (80.0-94.0) fL MCH (27.0-31.0) pg MCHC (33.0-37.0) g/dL RDW (11.5-14.5) % Plt Count (130-400) K/uL MPV (7.2-11.7) fL Neut % (Auto) (50.0-75.0) % Lymph % (Auto) (20.0-40.0) % [place] % (Auto) (0.0-10.0) % Eos % (Auto) (0.0-4.0) % Baso % (Auto) (0.0-2.0) % Neut # (Auto) (1.8-7.0) K/uL Lymph # (Auto) (1.0-4.3) K/uL [place] # (Auto) (0.0-0.8) K/uL Eos # (Auto) (0.0-0.7) K/uL Baso # (Auto) (0.0-0.2) K/uL PT (9.7-12.2) SECONDS INR Puncture Site Rr pCO2 37 (35-45) mm/Hg pO2 97 (80-100) mm/Hg HCO3 27.4 (21-28) mmol/L ABG pH 7.47 H (7.35-7.45) ABG Total CO2 28.0 (22-28) mmol/L ABG O2 Saturation 98.8 H (95-98) % ABG Base Excess 3.2 H (-2.0-3.0) mmol/L ABG Hemoglobin 11.2 L (11.7-17.4) g/dL ABG Carboxyhemoglobin 1.9 H (0.5-1.5) % POC ABG HHb (Measured) 1.2 (0.0-5.0) % ABG Methemoglobin 0.9 (0.0-3.0) % Ruiz Test Pos A-a O2 Difference 142.0 mm/Hg Respiratory Index 1.5 Hgb O2 Saturation 96.1 (95.0-98.0) % Vent Mode Prvc Mechanical Rate 16 FiO2 40.0 % Tidal Volume 450 PEEP 5 Sodium (132-148) mmol/L Potassium (3.6-5.2) mmol/L Chloride (98-107) mmol/L Carbon Dioxide (22-30) mmol/L Anion Gap (10-20) BUN (9-20) mg/dL Creatinine (0.8-1.5) mg/dL Est GFR ( Amer) Est GFR (Non-Af Amer) POC Glucose (mg/dL) 89 (65-110) mg/dL Random Glucose (75-110) mg/dL Calcium (8.6-10.4) mg/dl Phosphorus (2.5-4.5) mg/dL Magnesium (1.6-2.3) mg/dL Total Bilirubin (0.2-1.3) mg/dL AST (17-59) U/L ALT (21-72) U/L Alkaline Phosphatase (38-126) U/L Total Protein (6.3-8.3) g/dL Albumin (3.5-5.0) g/dL Globulin (2.2-3.9) gm/dL Albumin/Globulin Ratio (1.0-2.1) Laboratory Results - last 24 hr 11/14/18 11/14/18 11/14/18 00:01 04:35 05:04 WBC RBC Hgb Hct MCV MCH MCHC RDW Plt Count MPV Neut % (Auto) Lymph % (Auto) [place] % (Auto) Eos % (Auto) Baso % (Auto) Neut # (Auto) Lymph # (Auto) [place] # (Auto) Eos # (Auto) Baso # (Auto) PT INR Puncture Site Rr pCO2 37 pO2 97 HCO3 27.4 ABG pH 7.47 H ABG Total CO2 28.0 ABG O2 Saturation 98.8 H ABG Base Excess 3.2 H ABG Hemoglobin 11.2 L ABG Carboxyhemoglobin 1.9 H POC ABG HHb (Measured) 1.2 ABG Methemoglobin 0.9 Ruiz Test Pos A-a O2 Difference 142.0 Respiratory Index 1.5 Hgb O2 Saturation 96.1 Vent Mode Prvc Mechanical Rate 16 FiO2 40.0 Tidal Volume 450 PEEP 5 Sodium Potassium Chloride Carbon Dioxide Anion Gap BUN Creatinine Est GFR ( Amer) Est GFR (Non-Af Amer) POC Glucose (mg/dL) 89 64 L Random Glucose Calcium Phosphorus Magnesium Total Bilirubin AST ALT Alkaline Phosphatase Total Protein Albumin Globulin Albumin/Globulin Ratio 11/14/18 11/14/18 11/14/18 05:06 06:02 06:02 WBC 8.3 RBC 3.12 L Hgb 8.0 L Hct 24.9 L MCV 79.9 L MCH 25.6 L MCHC 32.0 L RDW 20.8 H Plt Count 323 MPV 9.2 Neut % (Auto) 67.4 Lymph % (Auto) 26.1 [place] % (Auto) 4.7 Eos % (Auto) 1.3 Baso % (Auto) 0.5 Neut # (Auto) 5.6 Lymph # (Auto) 2.2 [place] # (Auto) 0.4 Eos # (Auto) 0.1 Baso # (Auto) 0.0 PT INR Puncture Site pCO2 pO2 HCO3 ABG pH ABG Total CO2 ABG O2 Saturation ABG Base Excess ABG Hemoglobin ABG Carboxyhemoglobin POC ABG HHb (Measured) ABG Methemoglobin Ruiz Test A-a O2 Difference Respiratory Index Hgb O2 Saturation Vent Mode Mechanical Rate FiO2 Tidal Volume PEEP Sodium 137 Potassium 3.4 L Chloride 104 Carbon Dioxide 30 Anion Gap 7 L BUN 11 Creatinine 0.8 Est GFR ( Amer) > 60 Est GFR (Non-Af Amer) > 60 POC Glucose (mg/dL) 74 Random Glucose 70 L D Calcium 7.6 L Phosphorus 2.9 Magnesium 2.0 Total Bilirubin 0.2 AST 20 ALT 6 L D Alkaline Phosphatase 152 H Total Protein 6.7 Albumin 2.3 L Globulin 4.4 H Albumin/Globulin Ratio 0.5 L 11/14/18 11/14/18 11/14/18 06:02 11:12 11:16 WBC RBC Hgb Hct MCV MCH MCHC RDW Plt Count MPV Neut % (Auto) Lymph % (Auto) [place] % (Auto) Eos % (Auto) Baso % (Auto) Neut # (Auto) Lymph # (Auto) [place] # (Auto) Eos # (Auto) Baso # (Auto) PT 13.0 H INR 1.2 Puncture Site pCO2 pO2 HCO3 ABG pH ABG Total CO2 ABG O2 Saturation ABG Base Excess ABG Hemoglobin ABG Carboxyhemoglobin POC ABG HHb (Measured) ABG Methemoglobin Ruiz Test A-a O2 Difference Respiratory Index Hgb O2 Saturation Vent Mode Mechanical Rate FiO2 Tidal Volume PEEP Sodium Potassium Chloride Carbon Dioxide Anion Gap BUN Creatinine Est GFR ( Amer) Est GFR (Non-Af Amer) POC Glucose (mg/dL) 55 L 63 L Random Glucose Calcium Phosphorus Magnesium Total Bilirubin AST ALT Alkaline Phosphatase Total Protein Albumin Globulin Albumin/Globulin Ratio 11/14/18 11/14/18 11:48 17:48 WBC RBC Hgb Hct MCV MCH MCHC RDW Plt Count MPV Neut % (Auto) Lymph % (Auto) [place] % (Auto) Eos % (Auto) Baso % (Auto) Neut # (Auto) Lymph # (Auto) [place] # (Auto) Eos # (Auto) Baso # (Auto) PT INR Puncture Site pCO2 pO2 HCO3 ABG pH ABG Total CO2 ABG O2 Saturation ABG Base Excess ABG Hemoglobin ABG Carboxyhemoglobin POC ABG HHb (Measured) ABG Methemoglobin Ruiz Test A-a O2 Difference Respiratory Index Hgb O2 Saturation Vent Mode Mechanical Rate FiO2 Tidal Volume PEEP Sodium Potassium Chloride Carbon Dioxide Anion Gap BUN Creatinine Est GFR ( Amer) Est GFR (Non-Af Amer) POC Glucose (mg/dL) 174 H 90 Random Glucose Calcium Phosphorus Magnesium Total Bilirubin AST ALT Alkaline Phosphatase Total Protein Albumin Globulin Albumin/Globulin Ratio Radiology Impressions: Radiology Impressions Chest X-Ray 11/14/18 04:00 IMPRESSION: Increasing bilateral patchy opacities. Possible developing pneumonia. Follow-up advised. Critical Care Progress Note - Nutrition Nutrition: Nutrition Category Date Time Status NPO Diet [DIET] Diets 11/14/18 Breakfast Active Attending/Attestation - Attestation I have personally seen and examined this patient.: Yes I have fully participated in the care of the patient.: Yes I have reviewed all pertinent clinical information: Yes Notes (Text): 11/14/18 21:08 Today: October The Patient was seen and examined at the bedside, Medical records reviewed, and management issues were discussed and formulated with the house staff. I have reviewed all the relevant clinical, laboratory, hemodynamic, radiographic data and medications Events reviewed Pain issues, skin care, head of the bed elevation, glycemic control were addressed. Agree with above resident's assessment and treatment plans of care as transcribed in Dr. Stanton's note. Critically ill patient with acute hypoxemic/hypercapnic respiratory failure, Respiratory acidosis, Severe sepsis from Bilateral pneumonia, CXR: bilateral pulmonary infiltrates Bacteremia Acute kidney injury, now with Improving renal function history of CVA, paraplegia, and dementia Continue IV Antibiotics with Vancomycin and zosyn Continue nebulizer treatment Daily CAT/SBT Continue Levetiracetam (Yassineppra) 500 mg PO BID for seizures GI PPX: Pepcid DVT PPX: Lovenox 40 mg SQ Daily Discussed with the family in details diagnosis, treatment plans and alternatives, Code status: Full code Total critical care time 45 minutes
--- NOTE | 2018-11-14 15:32 | CP.PCM.PN ---
Subjective - Date & Time of Evaluation Date of Evaluation: 11/14/18 Time of Evaluation: 12:30 - Subjective Subjective: clinically same Objective - Vital Signs/Intake and Output Vital Signs (last 24 hours): Temp Pulse Resp BP Pulse Ox 97.9 F 74 31 H 141/65 93 L 11/14/18 12:00 11/14/18 14:47 11/14/18 14:47 11/14/18 14:47 11/14/18 14:47 Intake and Output: 11/14/18 11/14/18 06:59 18:59 Intake Total 820 512 Output Total 1160 400 Balance -340 112 - Medications Medications: Current Medications Enoxaparin Sodium (Lovenox) 40 mg SC DAILY [facility] Last Admin: 11/13/18 09:48 Dose: 40 mg Famotidine (Pepcid) 20 mg GT Q12 [facility] Last Admin: 11/14/18 10:06 Dose: Not Given Propofol (Diprivan) 1,000 mg in 100 mls @ 1.716 mls/hr IV .Q24H PRN; Protocol PRN Reason: TITRATE PER MD ORDER Last Admin: 11/14/18 00:49 Dose: 14.56 mcg/kg/min, 5 mls/hr Voriconazole 200 mg/ Sodium (Chloride) 100 mls @ 100 mls/hr IVPB Q12H [facility] Last Admin: 11/14/18 14:32 Dose: 100 mls/hr Ceftazidime/Avibactam 2.5 gm/ (Sodium Chloride) 100 mls @ 50 mls/hr IV Q8H [facility]; Protocol Last Admin: 11/14/18 11:24 Dose: 50 mls/hr Colistimethate Sodium 60 mg/ (Sodium Chloride) 100 mls @ 200 mls/hr IV Q12H [facility]; Protocol Last Admin: 11/14/18 10:27 Dose: 200 mls/hr Lactated Ringer's (Lactated Ringer's) 1,000 mls @ 100 mls/hr IV .Q10H ONE Stop: 11/14/18 22:03 Last Admin: 11/14/18 12:21 Dose: 100 mls/hr Levetiracetam (Keppra) 500 mg PO BID [facility] Last Admin: 11/14/18 10:05 Dose: Not Given Valproate Sodium (Depakene Oral Soln) 250 mg PO BID [facility] Last Admin: 11/14/18 10:05 Dose: Not Given - Labs Labs: 11/14/18 06:02 11/14/18 06:02 PT 13.0 SECONDS (9.7-12.2) H 11/14/18 06:02 INR 1.2 11/14/18 06:02 APTT 41 SECONDS (21-34) H 11/13/18 13:48 - Constitutional Appears: Well - Head Exam Head Exam: ATRAUMATIC, NORMAL INSPECTION, NORMOCEPHALIC - Eye Exam Eye Exam: EOMI, Normal appearance, PERRL Pupil Exam: NORMAL ACCOMODATION, PERRL - ENT Exam ENT Exam: Mucous Membranes Moist, Normal Exam - Neck Exam Neck Exam: Full ROM, Normal Inspection. absent: Lymphadenopathy - Respiratory Exam Respiratory Exam: Decreased Breath Sounds - Cardiovascular Exam Cardiovascular Exam: REGULAR RHYTHM, +S1, +S2 - GI/Abdominal Exam GI & Abdominal Exam: Soft, Diminished Bowel Sounds - Rectal Exam Rectal Exam: Deferred
[2018-11-15 05:30] LABS: ABG ALLEN TEST POS; ARTERIAL BLOOD GAS HCO3 27.9 mmol/L (21-28); ARTERIAL BLOOD GAS O2 SAT 98.5 % (95-98); ARTERIAL BLOOD GAS PCO2 38 mm/Hg (35-45); ARTERIAL BLOOD GAS PH 7.47 (7.35-7.45); ARTERIAL BLOOD GAS PO2 80 mm/Hg (80-100); ARTERIAL BLOOD GAS TCO2 28.9 mmol/L (22-28)
[2018-11-15 06:24] LABS: BASO # 0.1 K/uL (0.0-0.2); BASO % 0.8 % (0.0-2.0); EOS # 0.1 K/uL (0.0-0.7); EOS % 1.4 % (0.0-4.0); LYMPH % 36.9 % (20.0-40.0); MEAN CELL VOLUME 79.9 fL (80.0-94.0); MEAN CORPUSCULAR HEMOGLOBIN 25.3 pg (27.0-31.0); MEAN CORPUSCULAR HGB CONC 31.7 g/dL (33.0-37.0); MEAN PLATELET VOLUME 8.7 fL (7.2-11.7); MONO # 0.4 K/uL (0.0-0.8); MONO % 5.1 % (0.0-10.0); NEUT # 4.5 K/uL (1.8-7.0); NEUT % 55.8 % (50.0-75.0); RBC 3.14 Mil/uL (4.40-5.90); RED CELL DISTRIBUTION WIDTH 20.9 % (11.5-14.5); WHITE BLOOD COUNT 8.1 K/uL (4.8-10.8)
[2018-11-15 06:44] LABS: ALB/GLOB RATIO 0.5 (1.0-2.1); ALBUMIN 2.3 g/dL (3.5-5.0); AST/SGOT 19 U/L (17-59); BLOOD UREA NITROGEN 12 mg/dL (9-20); CALCIUM 7.5 mg/dl (8.6-10.4); GFR NON-AFRICAN AMERICAN > 60
[2018-11-15 06:46] LABS: ALT/SGPT < 6 U/L (21-72)
--- NOTE | 2018-11-15 07:43 | CP.PCM.PN ---
Subjective - Date & Time of Evaluation Date of Evaluation: 11/15/18 Time of Evaluation: 07:41 - Subjective Subjective: Pt S&E. NAEO. Pt doing well s/p PEG tube with tube feeds currently at 40cc/hr. Surgical site clean dry and intact. Objective - Vital Signs/Intake and Output Vital Signs (last 24 hours): Temp Pulse Resp BP Pulse Ox 98.5 F 75 17 140/68 96 11/15/18 04:00 11/15/18 07:00 11/15/18 07:00 11/15/18 06:47 11/15/18 07:00 Intake and Output: 11/15/18 11/15/18 06:59 18:59 Intake Total 1037.5 40 Output Total 530 Balance 507.5 40 - Medications Medications: Current Medications Enoxaparin Sodium (Lovenox) 40 mg SC DAILY [facility] Last Admin: 11/13/18 09:48 Dose: 40 mg Famotidine (Pepcid) 20 mg GT Q12 [facility] Last Admin: 11/14/18 21:44 Dose: 20 mg Propofol (Diprivan) 1,000 mg in 100 mls @ 1.716 mls/hr IV .Q24H PRN; Protocol PRN Reason: TITRATE PER MD ORDER Last Titration: 11/15/18 06:07 Dose: 0 mcg/kg/min, 0 mls/hr Voriconazole 200 mg/ Sodium (Chloride) 100 mls @ 100 mls/hr IVPB Q12H [facility] Last Admin: 11/15/18 01:34 Dose: 100 mls/hr Ceftazidime/Avibactam 2.5 gm/ (Sodium Chloride) 100 mls @ 50 mls/hr IV Q8H [facility]; Protocol Last Admin: 11/15/18 03:56 Dose: 50 mls/hr Colistimethate Sodium 60 mg/ (Sodium Chloride) 100 mls @ 200 mls/hr IV Q12H [facility]; Protocol Last Admin: 11/14/18 22:32 Dose: 200 mls/hr Levetiracetam (Keppra) 500 mg PO BID [facility] Last Admin: 11/14/18 17:53 Dose: 500 mg Valproate Sodium (Depakene Oral Soln) 250 mg PO BID [facility] Last Admin: 11/14/18 17:53 Dose: 250 mg - Labs Labs: 11/15/18 06:10 11/15/18 06:10 PT 13.0 SECONDS (9.7-12.2) H 11/14/18 06:02 INR 1.2 11/14/18 06:02 APTT 41 SECONDS (21-34) H 11/13/18 13:48 - Constitutional Appears: No Acute Distress - Eye Exam Eye Exam: Normal appearance - Respiratory Exam Respiratory Exam: NORMAL BREATHING PATTERN. absent: Respiratory Distress - Cardiovascular Exam Cardiovascular Exam: REGULAR RHYTHM - GI/Abdominal Exam GI & Abdominal Exam: Soft. absent: Distended, Tenderness, Hernia Additional comments: surgical site c/d/i - Neurological Exam Neurological Exam: Alert, Awake - Psychiatric Exam Psychiatric exam: Normal Affect, Normal Mood - Skin Skin Exam: Intact, Normal Color Assessment and Plan - Assessment and Plan (Free Text) Assessment: 63 yo M s/p PEG pod #1 -Continue tube feeds to goal -No further surgical intervention at this time, surgery will sign off -Will remove sutures in 10 days Further reccs as per attending Owen PGY4
--- NOTE | 2018-11-15 09:09 | RAD ---
Date of service: 11/15/2018 HISTORY: intubated COMPARISON: 11/14/2018. FINDINGS: Endotracheal tube terminates 2.7 cm proximal to the pito. The right IJV line terminates in the SVC. LUNGS: The lungs are well inflated. There is redemonstration of nodular opacities in both lungs and more confluent airspace disease in the right lower lobe and left perihilar region. PLEURA: No pleural effusions or pneumothorax. CARDIOVASCULAR: The heart is normal in size. No aortic atherosclerotic calcification present. OSSEOUS STRUCTURES: Within normal limits for the patient's age. VISUALIZED UPPER ABDOMEN: Normal. OTHER FINDINGS: None. IMPRESSION: Little interval change in nodular and confluent airspace disease in the lungs most compatible with multifocal pneumonia. Underlying interstitial disease is a consideration.
[2018-11-15] MEDS: Valproic Acid 250 mg/5 ml UD Cup PO SCH ×2 (10:15→18:00)
[2018-11-15] MEDS: Enoxaparin 40 mg Syringe SC SCH (10:16)
[2018-11-15] MEDS: levETIRAcetam 100 mg/ml (5ml) Oral Syringe PO SCH ×2 (10:17→18:00)
[2018-11-15] MEDS: SODIUM CHLORIDE 0.9% IV SCH ×2 (10:19→22:33)
[2018-11-15] MEDS: COLISTIMETHATE IV SCH ×2 (10:19→22:33)
[2018-11-15] MEDS: MethylPREDNISolone 40 mg Vial IVP SCH ×3 (10:56→22:33)
--- NOTE | 2018-11-15 12:07 | CP.CCUPN ---
<Francisca Stanton - Last Filed: 11/15/18 12:29> CCU Subjective - Physician Review Subjective (Free Text): ICU Progress Note for Dr. Je Urbina Patient seen and examined at bedside this morning. Patient resting comfortably in bed and awake. Due to patient condition, ROS unable to be obtained. Patient's RT who speaks patient's primary language, Gujarati, states that he is able to understand him but does not follow instructions. 11/15/18 12:05 11/15/18 12:29 CCU Objective - Vital Signs / Intake & Output Vital Signs (Last 4 hours): Vital Signs Pulse Resp BP Pulse Ox 11/15/18 10:16 146/75 11/15/18 09:47 146/75 11/15/18 09:46 85 35 H 97 11/15/18 09:00 83 36 H 97 11/15/18 08:47 82 36 H 146/72 95 Intake and Output (Last 8hrs): Intake & Output 11/14/18 11/15/18 11/15/18 22:59 06:59 14:59 Intake Total 877.5 700 40 Output Total 430 370 Balance 447.5 330 40 Weight 121 lb 6.4 oz Intake: IV 65.0 40 Intake, IV Amount 392.5 340 0 Right Distal Port 350 300 Internal Jugular Right Medial Port 42.5 40 0 Internal Jugular Tube Feeding 320 320 40 Other 100 Output: Urine 430 370 Urethral (Nelson) 430 370 Other: # Bowel Movements 0 - Physical Exam Head: Positive for: Atraumatic, Normocephalic Extroacular Muscles: Positive for: EOMI Conjunctiva: Positive for: Normal Respiratory/Chest: Positive for: Clear to Auscultation, Good Air Exchange. Negative for: Respiratory Distress Cardiovascular: Positive for: Regular Rate and Rhythm, Normal S1, S2 Abdomen: Positive for: Other (PEG tube with surrounding dressing c/d/i). Negative for: Tenderness, Distention, Rebound, Guarding Upper Extremity: Positive for: Normal Inspection Lower Extremity: Positive for: Normal Inspection. Negative for: Edema Neurological: Positive for: Other (left leg with sudden kicks) Skin: Positive for: Warm, Dry, Normal Color Psychiatric: Positive for: Alert - Medications Active Medications: Active Medications Generic Name Dose Route Start Last Admin Trade Name Freq PRN Reason Stop Dose Admin Albuterol/Ipratropium 3 ml 11/15/18 14:00 Duoneb 3 Mg/0.5 Mg (3 Ml) Ud INH RQ6 HUMBERTO Enoxaparin Sodium 40 mg 11/04/18 10:00 11/15/18 10:16 Lovenox SC 40 mg DAILY HUMBERTO Administration Famotidine 20 mg 11/11/18 10:00 11/15/18 10:17 Pepcid GT 20 mg Q12 HUMBERTO Administration Propofol 1,000 mg in 100 mls @ 1.716 mls/hr 11/09/18 09:06 11/15/18 06:07 Diprivan IV 0 mcg/kg/min .Q24H PRN 0 mls/hr TITRATE PER MD ORDER Titration Protocol 5 MCG/KG/MIN Voriconazole 200 mg/ Sodium 100 mls @ 100 mls/hr 11/10/18 02:00 11/15/18 01:34 Chloride IVPB 100 mls/hr Q12H HUMBERTO Administration Ceftazidime/Avibactam 2.5 gm/ 100 mls @ 50 mls/hr 11/13/18 12:00 11/15/18 11:49 Sodium Chloride IV 50 mls/hr Q8H HUMBERTO Administration Protocol Colistimethate Sodium 60 mg/ 100 mls @ 200 mls/hr 11/13/18 23:00 11/15/18 10:19 Sodium Chloride IV 200 mls/hr Q12H HUMBERTO Administration Protocol Levetiracetam 500 mg 11/03/18 21:00 11/15/18 10:17 Keppra PO 500 mg BID HUMBERTO Administration Methylprednisolone 40 mg 11/15/18 10:00 11/15/18 10:56 Solu-Medrol IVP 40 mg Q6H HUMBERTO Administration Valproate Sodium 250 mg 11/03/18 21:00 11/15/18 10:15 Depakene Oral Soln PO 250 mg BID HUMBERTO Administration - Patient Studies Lab Studies: Microbiology Studies 11/11/18 17:27 Gram Stain - Final Trachasp Sputum Culture - Final Acinetobacter Baumannii Lab Studies 11/15/18 11/15/18 11/15/18 Range/Units 11:45 06:10 06:10 WBC 8.1 (4.8-10.8) K/uL RBC 3.14 L (4.40-5.90) Mil/uL Hgb 8.0 L (12.0-18.0) g/dL Hct 25.1 L (35.0-51.0) % MCV 79.9 L (80.0-94.0) fL MCH 25.3 L (27.0-31.0) pg MCHC 31.7 L (33.0-37.0) g/dL RDW 20.9 H (11.5-14.5) % Plt Count 349 (130-400) K/uL MPV 8.7 (7.2-11.7) fL Neut % (Auto) 55.8 (50.0-75.0) % Lymph % (Auto) 36.9 (20.0-40.0) % Clay % (Auto) 5.1 (0.0-10.0) % Eos % (Auto) 1.4 (0.0-4.0) % Baso % (Auto) 0.8 (0.0-2.0) % Neut # (Auto) 4.5 (1.8-7.0) K/uL Lymph # (Auto) 3.0 (1.0-4.3) K/uL Clay # (Auto) 0.4 (0.0-0.8) K/uL Eos # (Auto) 0.1 (0.0-0.7) K/uL Baso # (Auto) 0.1 (0.0-0.2) K/uL Puncture Site pCO2 (35-45) mm/Hg pO2 (80-100) mm/Hg HCO3 (21-28) mmol/L ABG pH (7.35-7.45) ABG Total CO2 (22-28) mmol/L ABG O2 Saturation (95-98) % ABG Base Excess (-2.0-3.0) mmol/L Ruiz Test ABG Potassium (3.6-5.2) mmol/L A-a O2 Difference mm/Hg Respiratory Index Sodium 137 (132-148) mmol/l Chloride 105 (98-107) mmol/L Glucose (75-110) mg/dl Lactate (0.7-2.1) mmol/L Vent Mode Mechanical Rate FiO2 % Tidal Volume PEEP Potassium 3.9 (3.6-5.2) mmol/L Carbon Dioxide 30 (22-30) mmol/L Anion Gap 6 L (10-20) BUN 12 (9-20) mg/dL Creatinine 0.8 (0.8-1.5) mg/dL Est GFR ( Amer) > 60 Est GFR (Non-Af Amer) > 60 POC Glucose (mg/dL) 155 H (65-110) mg/dL Random Glucose 92 D (75-110) mg/dL Calcium 7.5 L (8.6-10.4) mg/dl Phosphorus 3.0 (2.5-4.5) mg/dL Magnesium 2.0 (1.6-2.3) mg/dL Total Bilirubin 0.1 L (0.2-1.3) mg/dL AST 19 (17-59) U/L ALT < 6 L (21-72) U/L Alkaline Phosphatase 158 H (38-126) U/L Total Protein 6.7 (6.3-8.3) g/dL Albumin 2.3 L (3.5-5.0) g/dL Globulin 4.4 H (2.2-3.9) gm/dL Albumin/Globulin Ratio 0.5 L (1.0-2.1) Arterial Blood Potassium (3.6-5.2) mmol/L 11/15/18 11/15/18 11/14/18 Range/Units 05:14 05:12 23:54 WBC (4.8-10.8) K/uL RBC (4.40-5.90) Mil/uL Hgb (12.0-18.0) g/dL Hct (35.0-51.0) % MCV (80.0-94.0) fL MCH (27.0-31.0) pg MCHC (33.0-37.0) g/dL RDW (11.5-14.5) % Plt Count (130-400) K/uL MPV (7.2-11.7) fL Neut % (Auto) (50.0-75.0) % Lymph % (Auto) (20.0-40.0) % Clay % (Auto) (0.0-10.0) % Eos % (Auto) (0.0-4.0) % Baso % (Auto) (0.0-2.0) % Neut # (Auto) (1.8-7.0) K/uL Lymph # (Auto) (1.0-4.3) K/uL Clay # (Auto) (0.0-0.8) K/uL Eos # (Auto) (0.0-0.7) K/uL Baso # (Auto) (0.0-0.2) K/uL Puncture Site Rr pCO2 38 (35-45) mm/Hg pO2 80 (80-100) mm/Hg HCO3 27.9 (21-28) mmol/L ABG pH 7.47 H (7.35-7.45) ABG Total CO2 28.9 H (22-28) mmol/L ABG O2 Saturation 98.5 H (95-98) % ABG Base Excess 3.9 H (-2.0-3.0) mmol/L Ruiz Test Pos ABG Potassium 3.7 (3.6-5.2) mmol/L A-a O2 Difference 158.0 mm/Hg Respiratory Index 2.0 Sodium 141.0 (132-148) mmol/l Chloride 112.0 H (98-107) mmol/L Glucose 88 (75-110) mg/dl Lactate 0.7 (0.7-2.1) mmol/L Vent Mode Prvc Mechanical Rate 16 FiO2 40.0 % Tidal Volume 450 PEEP 5 Potassium (3.6-5.2) mmol/L Carbon Dioxide (22-30) mmol/L Anion Gap (10-20) BUN (9-20) mg/dL Creatinine (0.8-1.5) mg/dL Est GFR ( Amer) Est GFR (Non-Af Amer) POC Glucose (mg/dL) 90 97 (65-110) mg/dL Random Glucose (75-110) mg/dL Calcium (8.6-10.4) mg/dl Phosphorus (2.5-4.5) mg/dL Magnesium (1.6-2.3) mg/dL Total Bilirubin (0.2-1.3) mg/dL AST (17-59) U/L ALT (21-72) U/L Alkaline Phosphatase (38-126) U/L Total Protein (6.3-8.3) g/dL Albumin (3.5-5.0) g/dL Globulin (2.2-3.9) gm/dL Albumin/Globulin Ratio (1.0-2.1) Arterial Blood Potassium 3.7 (3.6-5.2) mmol/L 11/14/18 11/14/18 11/14/18 Range/Units 17:48 11:16 11:12 WBC (4.8-10.8) K/uL RBC (4.40-5.90) Mil/uL Hgb (12.0-18.0) g/dL Hct (35.0-51.0) % MCV (80.0-94.0) fL MCH (27.0-31.0) pg MCHC (33.0-37.0) g/dL RDW (11.5-14.5) % Plt Count (130-400) K/uL MPV (7.2-11.7) fL Neut % (Auto) (50.0-75.0) % Lymph % (Auto) (20.0-40.0) % Clay % (Auto) (0.0-10.0) % Eos % (Auto) (0.0-4.0) % Baso % (Auto) (0.0-2.0) % Neut # (Auto) (1.8-7.0) K/uL Lymph # (Auto) (1.0-4.3) K/uL Clay # (Auto) (0.0-0.8) K/uL Eos # (Auto) (0.0-0.7) K/uL Baso # (Auto) (0.0-0.2) K/uL Puncture Site pCO2 (35-45) mm/Hg pO2 (80-100) mm/Hg HCO3 (21-28) mmol/L ABG pH (7.35-7.45) ABG Total CO2 (22-28) mmol/L ABG O2 Saturation (95-98) % ABG Base Excess (-2.0-3.0) mmol/L Ruiz Test ABG Potassium (3.6-5.2) mmol/L A-a O2 Difference mm/Hg Respiratory Index Sodium (132-148) mmol/l Chloride (98-107) mmol/L Glucose (75-110) mg/dl Lactate (0.7-2.1) mmol/L Vent Mode Mechanical Rate FiO2 % Tidal Volume PEEP Potassium (3.6-5.2) mmol/L Carbon Dioxide (22-30) mmol/L Anion Gap (10-20) BUN (9-20) mg/dL Creatinine (0.8-1.5) mg/dL Est GFR ( Amer) Est GFR (Non-Af Amer) POC Glucose (mg/dL) 90 63 L 55 L (65-110) mg/dL Random Glucose (75-110) mg/dL Calcium (8.6-10.4) mg/dl Phosphorus (2.5-4.5) mg/dL Magnesium (1.6-2.3) mg/dL Total Bilirubin (0.2-1.3) mg/dL AST (17-59) U/L ALT (21-72) U/L Alkaline Phosphatase (38-126) U/L Total Protein (6.3-8.3) g/dL Albumin (3.5-5.0) g/dL Globulin (2.2-3.9) gm/dL Albumin/Globulin Ratio (1.0-2.1) Arterial Blood Potassium (3.6-5.2) mmol/L Laboratory Results - last 24 hr 11/14/18 11/14/18 11/14/18 11:12 11:16 17:48 WBC RBC Hgb Hct MCV MCH MCHC RDW Plt Count MPV Neut % (Auto) Lymph % (Auto) Clay % (Auto) Eos % (Auto) Baso % (Auto) Neut # (Auto) Lymph # (Auto) Clay # (Auto) Eos # (Auto) Baso # (Auto) Puncture Site pCO2 pO2 HCO3 ABG pH ABG Total CO2 ABG O2 Saturation ABG Base Excess Ruiz Test ABG Potassium A-a O2 Difference Respiratory Index Sodium Chloride Glucose Lactate Vent Mode Mechanical Rate FiO2 Tidal Volume PEEP Potassium Carbon Dioxide Anion Gap BUN Creatinine Est GFR ( Amer) Est GFR (Non-Af Amer) POC Glucose (mg/dL) 55 L 63 L 90 Random Glucose Calcium Phosphorus Magnesium Total Bilirubin AST ALT Alkaline Phosphatase Total Protein Albumin Globulin Albumin/Globulin Ratio Arterial Blood Potassium 11/14/18 11/15/18 11/15/18 23:54 05:12 05:14 WBC RBC Hgb Hct MCV MCH MCHC RDW Plt Count MPV Neut % (Auto) Lymph % (Auto) Clay % (Auto) Eos % (Auto) Baso % (Auto) Neut # (Auto) Lymph # (Auto) Clay # (Auto) Eos # (Auto) Baso # (Auto) Puncture Site Rr pCO2 38 pO2 80 HCO3 27.9 ABG pH 7.47 H ABG Total CO2 28.9 H ABG O2 Saturation 98.5 H ABG Base Excess 3.9 H Ruiz Test Pos ABG Potassium 3.7 A-a O2 Difference 158.0 Respiratory Index 2.0 Sodium 141.0 Chloride 112.0 H Glucose 88 Lactate 0.7 Vent Mode Prvc Mechanical Rate 16 FiO2 40.0 Tidal Volume 450 PEEP 5 Potassium Carbon Dioxide Anion Gap BUN Creatinine Est GFR ( Amer) Est GFR (Non-Af Amer) POC Glucose (mg/dL) 97 90 Random Glucose Calcium Phosphorus Magnesium Total Bilirubin AST ALT Alkaline Phosphatase Total Protein Albumin Globulin Albumin/Globulin Ratio Arterial Blood Potassium 3.7 11/15/18 11/15/18 11/15/18 06:10 06:10 11:45 WBC 8.1 RBC 3.14 L Hgb 8.0 L Hct 25.1 L MCV 79.9 L MCH 25.3 L MCHC 31.7 L RDW 20.9 H Plt Count 349 MPV 8.7 Neut % (Auto) 55.8 Lymph % (Auto) 36.9 Clay % (Auto) 5.1 Eos % (Auto) 1.4 Baso % (Auto) 0.8 Neut # (Auto) 4.5 Lymph # (Auto) 3.0 Clay # (Auto) 0.4 Eos # (Auto) 0.1 Baso # (Auto) 0.1 Puncture Site pCO2 pO2 HCO3 ABG pH ABG Total CO2 ABG O2 Saturation ABG Base Excess Ruiz Test ABG Potassium A-a O2 Difference Respiratory Index Sodium 137 Chloride 105 Glucose Lactate Vent Mode Mechanical Rate FiO2 Tidal Volume PEEP Potassium 3.9 Carbon Dioxide 30 Anion Gap 6 L BUN 12 Creatinine 0.8 Est GFR ( Amer) > 60 Est GFR (Non-Af Amer) > 60 POC Glucose (mg/dL) 155 H Random Glucose 92 D Calcium 7.5 L Phosphorus 3.0 Magnesium 2.0 Total Bilirubin 0.1 L AST 19 ALT < 6 L Alkaline Phosphatase 158 H Total Protein 6.7 Albumin 2.3 L Globulin 4.4 H Albumin/Globulin Ratio 0.5 L Arterial Blood Potassium Radiology Impressions: Radiology Impressions Chest X-Ray 11/15/18 04:00 IMPRESSION: Little interval change in nodular and confluent airspace disease in the lungs most compatible with multifocal pneumonia. Underlying interstitial disease is a consideration. Fingerstick Blood Sugar Results: 90 Critical Care Progress Note - Nutrition Nutrition: Nutrition Category Date Time Status NPO Diet [DIET] Diets 11/14/18 Breakfast Active Assessment/Plan - Assessment and Plan (Free Text) Assessment: 63 y/o male with multiple medical problems including PMHx of seizures, DM, CVA, and dementia with respiratory failure. Neuro -seizures: continue with keppra and valproate -history of CVA, paraplegia, and dementia -not on precedex CV -ECHO completed 11/05. Shows thickened aortic valve compared to 12/06. ID, Dr. Fine, recs cardiology consult to r/o endocarditis and OLEG. -cardiology, Dr. Anderson, consult ordered - Dr. Omar Urbina's slip bridge operator preference. He does not recommend OLEG at this time and to just treat underlying infections (see ID) Pulm -admitted with hypercapnic respiratory failure -daily CXR and ABG while intubated -PRVC 450/40/16/5 -plan for extubation tomorrow 11/16 -pre-extubation, patient to receive scheduled duonebs and solumedrol; CXR indicative of underlying COPD (ex - increased intercostal spacing). GI -no active issues Renal -renal insufficiency -lasix IV x 1 on 11/15 then d/c julia ID -CXR: bilateral pulmonary infiltrates, hx aspiration PNA -monitor VS and mental status - patient hemodynamically stable currently -11/11: trach asp grew acinobacter baumanii -> contact precautions ordered and abx changed by Dr. Fine as the following: Active abx: --*colistemethate started 11/13 --*ceftazidime/avibactam started 11/13 --*voriconazole given due to past cx positive for asperigillosis, started 11/10 Discontinued abx: --zosyn started 11/04 and d/eleno 11/13 --vanc started 10am on 11/05 and d/eleno 11/13 -11/05: final blood culture - s. aureus and coagulase negative staph -ID, Dr. Fine, following. Appreciate recs. Endo -DM: ISS -hypoglycemia protocol -accuchecks q12h; due to normoglycemia no need to check more frequently Heme -chronic anemia -f/u H/H daily -restart lovenox 11/15, day after PEG surgery Derm -metal hardener recs: prevalon boots, cavilon skin prep, frequent repositioning -PEG suture removal POD10 (Nov 25) ppx: DVT: lovenox 40 mg sc daily GI: pepcid 20 mg IV q12h diet: PEG feeding glucerna Dispo: Will need to discuss patient prognosis and plan of care at length with family. Palliative care aware of case and set family meeting on Nov 20, 2018. case discussed with Dr. Je Stanton PGY1 <Madonna Urbina - Last Filed: 11/15/18 13:56> CCU Objective - Vital Signs / Intake & Output Vital Signs (Last 4 hours): Vital Signs Temp Pulse Resp BP Pulse Ox 11/15/18 12:47 96 H 146/64 93 L 11/15/18 12:00 98.5 F 98 H 34 H 97 11/15/18 11:47 97 H 41 H 142/68 93 L 11/15/18 11:00 91 H 40 H 96 11/15/18 10:47 88 41 H 138/69 94 L 11/15/18 10:16 146/75 11/15/18 10:00 80 36 H 99 Intake and Output (Last 8hrs): Intake & Output 11/14/18 11/15/18 11/15/18 22:59 06:59 14:59 Intake Total 877.5 700 680 Output Total 430 370 Balance 447.5 330 680 Weight 121 lb 6.4 oz Intake: IV 65.0 40 Intake, IV Amount 392.5 340 300 Right Distal Port 350 300 Internal Jugular Right Medial Port 42.5 40 300 Internal Jugular Tube Feeding 320 320 280 Other 100 100 Output: Urine 430 370 Urethral (Nelson) 430 370 Other: # Bowel Movements 0 1 - Medications Active Medications: Active Medications Generic Name Dose Route Start Last Admin Trade Name Freq PRN Reason Stop Dose Admin Albuterol/Ipratropium 3 ml 11/15/18 14:00 11/15/18 13:05 Duoneb 3 Mg/0.5 Mg (3 Ml) Ud INH 3 ml RQ6 HUMBERTO Administration Enoxaparin Sodium 40 mg 11/04/18 10:00 11/15/18 10:16 Lovenox SC 40 mg DAILY HUMBERTO Administration Famotidine 20 mg 11/11/18 10:00 11/15/18 10:17 Pepcid GT 20 mg Q12 HUMBERTO Administration Propofol 1,000 mg in 100 mls @ 1.716 mls/hr 11/09/18 09:06 11/15/18 06:07 Diprivan IV 0 mcg/kg/min .Q24H PRN 0 mls/hr TITRATE PER MD ORDER Titration Protocol 5 MCG/KG/MIN Voriconazole 200 mg/ Sodium 100 mls @ 100 mls/hr 11/10/18 02:00 11/15/18 13:32 Chloride IVPB 100 mls/hr Q12H HUMBERTO Administration Ceftazidime/Avibactam 2.5 gm/ 100 mls @ 50 mls/hr 11/13/18 12:00 11/15/18 11:49 Sodium Chloride IV 50 mls/hr Q8H HUMBERTO Administration Protocol Colistimethate Sodium 60 mg/ 100 mls @ 200 mls/hr 11/13/18 23:00 11/15/18 10:19 Sodium Chloride IV 200 mls/hr Q12H HUMBERTO Administration Protocol Insulin Human Regular 0 unit 11/15/18 16:30 Novolin R SC ACHS HUMBERTO Protocol Levetiracetam 500 mg 11/03/18 21:00 11/15/18 10:17 Keppra PO 500 mg BID HUMBERTO Administration Methylprednisolone 40 mg 11/15/18 10:00 11/15/18 10:56 Solu-Medrol IVP 40 mg Q6H HUMBERTO Administration Valproate Sodium 250 mg 11/03/18 21:00 11/15/18 10:15 Depakene Oral Soln PO 250 mg BID HUMBERTO Administration - Patient Studies Lab Studies: Lab Studies 11/15/18 11/15/18 11/15/18 Range/Units 11:45 06:10 06:10 WBC 8.1 (4.8-10.8) K/uL RBC 3.14 L (4.40-5.90) Mil/uL Hgb 8.0 L (12.0-18.0) g/dL Hct 25.1 L (35.0-51.0) % MCV 79.9 L (80.0-94.0) fL MCH 25.3 L (27.0-31.0) pg MCHC 31.7 L (33.0-37.0) g/dL RDW 20.9 H (11.5-14.5) % Plt Count 349 (130-400) K/uL MPV 8.7 (7.2-11.7) fL Neut % (Auto) 55.8 (50.0-75.0) % Lymph % (Auto) 36.9 (20.0-40.0) % Clay % (Auto) 5.1 (0.0-10.0) % Eos % (Auto) 1.4 (0.0-4.0) % Baso % (Auto) 0.8 (0.0-2.0) % Neut # (Auto) 4.5 (1.8-7.0) K/uL Lymph # (Auto) 3.0 (1.0-4.3) K/uL Clay # (Auto) 0.4 (0.0-0.8) K/uL Eos # (Auto) 0.1 (0.0-0.7) K/uL Baso # (Auto) 0.1 (0.0-0.2) K/uL Puncture Site pCO2 (35-45) mm/Hg pO2 (80-100) mm/Hg HCO3 (21-28) mmol/L ABG pH (7.35-7.45) ABG Total CO2 (22-28) mmol/L ABG O2 Saturation (95-98) % ABG Base Excess (-2.0-3.0) mmol/L Ruiz Test ABG Potassium (3.6-5.2) mmol/L A-a O2 Difference mm/Hg Respiratory Index Sodium 137 (132-148) mmol/l Chloride 105 (98-107) mmol/L Glucose (75-110) mg/dl Lactate (0.7-2.1) mmol/L Vent Mode Mechanical Rate FiO2 % Tidal Volume PEEP Potassium 3.9 (3.6-5.2) mmol/L Carbon Dioxide 30 (22-30) mmol/L Anion Gap 6 L (10-20) BUN 12 (9-20) mg/dL Creatinine 0.8 (0.8-1.5) mg/dL Est GFR ( Amer) > 60 Est GFR (Non-Af Amer) > 60 POC Glucose (mg/dL) 155 H (65-110) mg/dL Random Glucose 92 D (75-110) mg/dL Calcium 7.5 L (8.6-10.4) mg/dl Phosphorus 3.0 (2.5-4.5) mg/dL Magnesium 2.0 (1.6-2.3) mg/dL Total Bilirubin 0.1 L (0.2-1.3) mg/dL AST 19 (17-59) U/L ALT < 6 L (21-72) U/L Alkaline Phosphatase 158 H (38-126) U/L Total Protein 6.7 (6.3-8.3) g/dL Albumin 2.3 L (3.5-5.0) g/dL Globulin 4.4 H (2.2-3.9) gm/dL Albumin/Globulin Ratio 0.5 L (1.0-2.1) Arterial Blood Potassium (3.6-5.2) mmol/L 11/15/18 11/15/18 11/14/18 Range/Units 05:14 05:12 23:54 WBC (4.8-10.8) K/uL RBC (4.40-5.90) Mil/uL Hgb (12.0-18.0) g/dL Hct (35.0-51.0) % MCV (80.0-94.0) fL MCH (27.0-31.0) pg MCHC (33.0-37.0) g/dL RDW (11.5-14.5) % Plt Count (130-400) K/uL MPV (7.2-11.7) fL Neut % (Auto) (50.0-75.0) % Lymph % (Auto) (20.0-40.0) % Clay % (Auto) (0.0-10.0) % Eos % (Auto) (0.0-4.0) % Baso % (Auto) (0.0-2.0) % Neut # (Auto) (1.8-7.0) K/uL Lymph # (Auto) (1.0-4.3) K/uL Clay # (Auto) (0.0-0.8) K/uL Eos # (Auto) (0.0-0.7) K/uL Baso # (Auto) (0.0-0.2) K/uL Puncture Site Rr pCO2 38 (35-45) mm/Hg pO2 80 (80-100) mm/Hg HCO3 27.9 (21-28) mmol/L ABG pH 7.47 H (7.35-7.45) ABG Total CO2 28.9 H (22-28) mmol/L ABG O2 Saturation 98.5 H (95-98) % ABG Base Excess 3.9 H (-2.0-3.0) mmol/L Ruiz Test Pos ABG Potassium 3.7 (3.6-5.2) mmol/L A-a O2 Difference 158.0 mm/Hg Respiratory Index 2.0 Sodium 141.0 (132-148) mmol/l Chloride 112.0 H (98-107) mmol/L Glucose 88 (75-110) mg/dl Lactate 0.7 (0.7-2.1) mmol/L Vent Mode Prvc Mechanical Rate 16 FiO2 40.0 % Tidal Volume 450 PEEP 5 Potassium (3.6-5.2) mmol/L Carbon Dioxide (22-30) mmol/L Anion Gap (10-20) BUN (9-20) mg/dL Creatinine (0.8-1.5) mg/dL Est GFR ( Amer) Est GFR (Non-Af Amer) POC Glucose (mg/dL) 90 97 (65-110) mg/dL Random Glucose (75-110) mg/dL Calcium (8.6-10.4) mg/dl Phosphorus (2.5-4.5) mg/dL Magnesium (1.6-2.3) mg/dL Total Bilirubin (0.2-1.3) mg/dL AST (17-59) U/L ALT (21-72) U/L Alkaline Phosphatase (38-126) U/L Total Protein (6.3-8.3) g/dL Albumin (3.5-5.0) g/dL Globulin (2.2-3.9) gm/dL Albumin/Globulin Ratio (1.0-2.1) Arterial Blood Potassium 3.7 (3.6-5.2) mmol/L 11/14/18 11/14/18 11/14/18 Range/Units 17:48 11:16 11:12 WBC (4.8-10.8) K/uL RBC (4.40-5.90) Mil/uL Hgb (12.0-18.0) g/dL Hct (35.0-51.0) % MCV (80.0-94.0) fL MCH (27.0-31.0) pg MCHC (33.0-37.0) g/dL RDW (11.5-14.5) % Plt Count (130-400) K/uL MPV (7.2-11.7) fL Neut % (Auto) (50.0-75.0) % Lymph % (Auto) (20.0-40.0) % Clay % (Auto) (0.0-10.0) % Eos % (Auto) (0.0-4.0) % Baso % (Auto) (0.0-2.0) % Neut # (Auto) (1.8-7.0) K/uL Lymph # (Auto) (1.0-4.3) K/uL Clay # (Auto) (0.0-0.8) K/uL Eos # (Auto) (0.0-0.7) K/uL Baso # (Auto) (0.0-0.2) K/uL Puncture Site pCO2 (35-45) mm/Hg pO2 (80-100) mm/Hg HCO3 (21-28) mmol/L ABG pH (7.35-7.45) ABG Total CO2 (22-28) mmol/L ABG O2 Saturation (95-98) % ABG Base Excess (-2.0-3.0) mmol/L Ruiz Test ABG Potassium (3.6-5.2) mmol/L A-a O2 Difference mm/Hg Respiratory Index Sodium (132-148) mmol/l Chloride (98-107) mmol/L Glucose (75-110) mg/dl Lactate (0.7-2.1) mmol/L Vent Mode Mechanical Rate FiO2 % Tidal Volume PEEP Potassium (3.6-5.2) mmol/L Carbon Dioxide (22-30) mmol/L Anion Gap (10-20) BUN (9-20) mg/dL Creatinine (0.8-1.5) mg/dL Est GFR ( Amer) Est GFR (Non-Af Amer) POC Glucose (mg/dL) 90 63 L 55 L (65-110) mg/dL Random Glucose (75-110) mg/dL Calcium (8.6-10.4) mg/dl Phosphorus (2.5-4.5) mg/dL Magnesium (1.6-2.3) mg/dL Total Bilirubin (0.2-1.3) mg/dL AST (17-59) U/L ALT (21-72) U/L Alkaline Phosphatase (38-126) U/L Total Protein (6.3-8.3) g/dL Albumin (3.5-5.0) g/dL Globulin (2.2-3.9) gm/dL Albumin/Globulin Ratio (1.0-2.1) Arterial Blood Potassium (3.6-5.2) mmol/L Laboratory Results - last 24 hr 11/14/18 11/14/18 11/14/18 11:12 11:16 17:48 WBC RBC Hgb Hct MCV MCH MCHC RDW Plt Count MPV Neut % (Auto) Lymph % (Auto) Clay % (Auto) Eos % (Auto) Baso % (Auto) Neut # (Auto) Lymph # (Auto) Clay # (Auto) Eos # (Auto) Baso # (Auto) Puncture Site pCO2 pO2 HCO3 ABG pH ABG Total CO2 ABG O2 Saturation ABG Base Excess Ruiz Test ABG Potassium A-a O2 Difference Respiratory Index Sodium Chloride Glucose Lactate Vent Mode Mechanical Rate FiO2 Tidal Volume PEEP Potassium Carbon Dioxide Anion Gap BUN Creatinine Est GFR ( Amer) Est GFR (Non-Af Amer) POC Glucose (mg/dL) 55 L 63 L 90 Random Glucose Calcium Phosphorus Magnesium Total Bilirubin AST ALT Alkaline Phosphatase Total Protein Albumin Globulin Albumin/Globulin Ratio Arterial Blood Potassium 11/14/18 11/15/18 11/15/18 23:54 05:12 05:14 WBC RBC Hgb Hct MCV MCH MCHC RDW Plt Count MPV Neut % (Auto) Lymph % (Auto) Clay % (Auto) Eos % (Auto) Baso % (Auto) Neut # (Auto) Lymph # (Auto) Clay # (Auto) Eos # (Auto) Baso # (Auto) Puncture Site Rr pCO2 38 pO2 80 HCO3 27.9 ABG pH 7.47 H ABG Total CO2 28.9 H ABG O2 Saturation 98.5 H ABG Base Excess 3.9 H Ruiz Test Pos ABG Potassium 3.7 A-a O2 Difference 158.0 Respiratory Index 2.0 Sodium 141.0 Chloride 112.0 H Glucose 88 Lactate 0.7 Vent Mode Prvc Mechanical Rate 16 FiO2 40.0 Tidal Volume 450 PEEP 5 Potassium Carbon Dioxide Anion Gap BUN Creatinine Est GFR ( Amer) Est GFR (Non-Af Amer) POC Glucose (mg/dL) 97 90 Random Glucose Calcium Phosphorus Magnesium Total Bilirubin AST ALT Alkaline Phosphatase Total Protein Albumin Globulin Albumin/Globulin Ratio Arterial Blood Potassium 3.7 11/15/18 11/15/18 11/15/18 06:10 06:10 11:45 WBC 8.1 RBC 3.14 L Hgb 8.0 L Hct 25.1 L MCV 79.9 L MCH 25.3 L MCHC 31.7 L RDW 20.9 H Plt Count 349 MPV 8.7 Neut % (Auto) 55.8 Lymph % (Auto) 36.9 Clay % (Auto) 5.1 Eos % (Auto) 1.4 Baso % (Auto) 0.8 Neut # (Auto) 4.5 Lymph # (Auto) 3.0 Clay # (Auto) 0.4 Eos # (Auto) 0.1 Baso # (Auto) 0.1 Puncture Site pCO2 pO2 HCO3 ABG pH ABG Total CO2 ABG O2 Saturation ABG Base Excess Ruiz Test ABG Potassium A-a O2 Difference Respiratory Index Sodium 137 Chloride 105 Glucose Lactate Vent Mode Mechanical Rate FiO2 Tidal Volume PEEP Potassium 3.9 Carbon Dioxide 30 Anion Gap 6 L BUN 12 Creatinine 0.8 Est GFR ( Amer) > 60 Est GFR (Non-Af Amer) > 60 POC Glucose (mg/dL) 155 H Random Glucose 92 D Calcium 7.5 L Phosphorus 3.0 Magnesium 2.0 Total Bilirubin 0.1 L AST 19 ALT < 6 L Alkaline Phosphatase 158 H Total Protein 6.7 Albumin 2.3 L Globulin 4.4 H Albumin/Globulin Ratio 0.5 L Arterial Blood Potassium Radiology Impressions: Radiology Impressions Chest X-Ray 11/15/18 04:00 IMPRESSION: Little interval change in nodular and confluent airspace disease in the lungs most compatible with multifocal pneumonia. Underlying interstitial disease is a consideration. Critical Care Progress Note - Nutrition Nutrition: Nutrition Category Date Time Status NPO Diet [DIET] Diets 11/14/18 Breakfast Active Assessment/Plan - Assessment and Plan (Free Text) Plan: Above patient seen and examined at bedside. PAtient awake, toelrating CPAP. -vitals reviewed CXR c/w obstructive lung disease -continue bronchodilaotrs, solumedrol and lasix -optimize lung function -dx between colonization versus infection -continue tube feeds -continue abs as per ID -continue dvt/pud ppx -cc itme 35 minutes - Date & Time Date: 11/15/18 Time: 13:56
--- NOTE | 2018-11-15 12:08 | CP.PCM.PN ---
Subjective - Date & Time of Evaluation Date of Evaluation: 11/15/18 Time of Evaluation: 09:30 - Subjective Subjective: patient seen and examined Responsive on ventilatory support Status post PEG tube insertion Afebrile Being treated for pneumonia Awaiting for transfer to [facility] Objective - Vital Signs/Intake and Output Vital Signs (last 24 hours): Temp Pulse Resp BP Pulse Ox 99.2 F 85 35 H 146/75 97 11/15/18 08:00 11/15/18 09:46 11/15/18 09:46 11/15/18 10:16 11/15/18 09:46 Intake and Output: 11/15/18 11/15/18 06:59 18:59 Intake Total 1037.5 40 Output Total 530 Balance 507.5 40 - Medications Medications: Current Medications Albuterol/Ipratropium (Duoneb 3 Mg/0.5 Mg (3 Ml) Ud) 3 ml INH RQ6 [facility] Enoxaparin Sodium (Lovenox) 40 mg SC DAILY [facility] Last Admin: 11/15/18 10:16 Dose: 40 mg Famotidine (Pepcid) 20 mg GT Q12 [facility] Last Admin: 11/15/18 10:17 Dose: 20 mg Propofol (Diprivan) 1,000 mg in 100 mls @ 1.716 mls/hr IV .Q24H PRN; Protocol PRN Reason: TITRATE PER MD ORDER Last Titration: 11/15/18 06:07 Dose: 0 mcg/kg/min, 0 mls/hr Voriconazole 200 mg/ Sodium (Chloride) 100 mls @ 100 mls/hr IVPB Q12H [facility] Last Admin: 11/15/18 01:34 Dose: 100 mls/hr Ceftazidime/Avibactam 2.5 gm/ (Sodium Chloride) 100 mls @ 50 mls/hr IV Q8H [facility]; Protocol Last Admin: 11/15/18 11:49 Dose: 50 mls/hr Colistimethate Sodium 60 mg/ (Sodium Chloride) 100 mls @ 200 mls/hr IV Q12H [facility]; Protocol Last Admin: 11/15/18 10:19 Dose: 200 mls/hr Levetiracetam (Keppra) 500 mg PO BID [facility] Last Admin: 11/15/18 10:17 Dose: 500 mg Methylprednisolone (Solu-Medrol) 40 mg IVP Q6H [facility] Last Admin: 11/15/18 10:56 Dose: 40 mg Valproate Sodium (Depakene Oral Soln) 250 mg PO BID [facility] Last Admin: 11/15/18 10:15 Dose: 250 mg - Labs Labs: 11/15/18 06:10 11/15/18 06:10 PT 13.0 SECONDS (9.7-12.2) H 11/14/18 06:02 INR 1.2 11/14/18 06:02 APTT 41 SECONDS (21-34) H 11/13/18 13:48 Assessment and Plan (1) Pneumonia Status: Acute (2) Sepsis Status: Acute (3) Acute respiratory failure with hypoxemia Status: Acute
[2018-11-15] MEDS: Albuterol-Ipratrop 3 mg / 0.5 (3 ml) UD INH SCH ×2 (13:05→19:34)
--- NOTE | 2018-11-15 16:29 | CP.PCM.PN ---
Subjective - Date & Time of Evaluation Date of Evaluation: 11/15/18 Time of Evaluation: 15:00 - Subjective Subjective: dictated Objective - Vital Signs/Intake and Output Vital Signs (last 24 hours): Temp Pulse Resp BP Pulse Ox 98.5 F 96 H 34 H 146/64 93 L 11/15/18 12:00 11/15/18 12:47 11/15/18 12:00 11/15/18 12:47 11/15/18 12:47 Intake and Output: 11/15/18 11/15/18 06:59 18:59 Intake Total 1037.5 680 Output Total 530 Balance 507.5 680 - Medications Medications: Current Medications Albuterol/Ipratropium (Duoneb 3 Mg/0.5 Mg (3 Ml) Ud) 3 ml INH RQ6 [facility] Last Admin: 11/15/18 13:05 Dose: 3 ml Enoxaparin Sodium (Lovenox) 40 mg SC DAILY [facility] Last Admin: 11/15/18 10:16 Dose: 40 mg Famotidine (Pepcid) 20 mg GT Q12 [facility] Last Admin: 11/15/18 10:17 Dose: 20 mg Propofol (Diprivan) 1,000 mg in 100 mls @ 1.716 mls/hr IV .Q24H PRN; Protocol PRN Reason: TITRATE PER MD ORDER Last Titration: 11/15/18 06:07 Dose: 0 mcg/kg/min, 0 mls/hr Voriconazole 200 mg/ Sodium (Chloride) 100 mls @ 100 mls/hr IVPB Q12H [facility] Last Admin: 11/15/18 13:32 Dose: 100 mls/hr Ceftazidime/Avibactam 2.5 gm/ (Sodium Chloride) 100 mls @ 50 mls/hr IV Q8H [facility]; Protocol Last Admin: 11/15/18 11:49 Dose: 50 mls/hr Colistimethate Sodium 60 mg/ (Sodium Chloride) 100 mls @ 200 mls/hr IV Q12H [facility]; Protocol Last Admin: 11/15/18 10:19 Dose: 200 mls/hr Insulin Human Regular (Novolin R) 0 unit SC ACHS [facility]; Protocol Levetiracetam (Keppra) 500 mg PO BID [facility] Last Admin: 11/15/18 10:17 Dose: 500 mg Methylprednisolone (Solu-Medrol) 40 mg IVP Q6H [facility] Last Admin: 11/15/18 10:56 Dose: 40 mg Valproate Sodium (Depakene Oral Soln) 250 mg PO BID [facility] Last Admin: 11/15/18 10:15 Dose: 250 mg - Labs Labs: 11/15/18 06:10 11/15/18 06:10 PT 13.0 SECONDS (9.7-12.2) H 11/14/18 06:02 INR 1.2 11/14/18 06:02 APTT 41 SECONDS (21-34) H 11/13/18 13:48
[2018-11-15] MEDS ORDERED: (Novolin R) Insulin Human Regular 100 units/ml vial SC SCH (16:30)
[2018-11-15] MEDS: (Novolin R) Insulin Human Regular 100 units/ml vial SC SCH (18:07)
--- NOTE | 2018-11-15 21:36 | CP.PCM.PN ---
Subjective - Date & Time of Evaluation Date of Evaluation: 11/15/18 Time of Evaluation: 10:30 - Subjective Subjective: clinically same Objective - Vital Signs/Intake and Output Vital Signs (last 24 hours): Temp Pulse Resp BP Pulse Ox 98.7 F 82 22 129/68 98 11/15/18 20:00 11/15/18 20:47 11/15/18 20:47 11/15/18 20:47 11/15/18 20:47 Intake and Output: 11/15/18 11/16/18 18:59 06:59 Intake Total 880 220 Output Total 2600 200 Balance -1720 20 - Medications Medications: Current Medications Albuterol/Ipratropium (Duoneb 3 Mg/0.5 Mg (3 Ml) Ud) 3 ml INH RQ6 [facility] Last Admin: 11/15/18 19:34 Dose: 3 ml Enoxaparin Sodium (Lovenox) 40 mg SC DAILY [facility] Last Admin: 11/15/18 10:16 Dose: 40 mg Famotidine (Pepcid) 20 mg GT Q12 [facility] Last Admin: 11/15/18 10:17 Dose: 20 mg Propofol (Diprivan) 1,000 mg in 100 mls @ 1.716 mls/hr IV .Q24H PRN; Protocol PRN Reason: TITRATE PER MD ORDER Last Titration: 11/15/18 06:07 Dose: 0 mcg/kg/min, 0 mls/hr Voriconazole 200 mg/ Sodium (Chloride) 100 mls @ 100 mls/hr IVPB Q12H [facility] Last Admin: 11/15/18 13:32 Dose: 100 mls/hr Ceftazidime/Avibactam 2.5 gm/ (Sodium Chloride) 100 mls @ 50 mls/hr IV Q8H [facility]; Protocol Last Admin: 11/15/18 20:13 Dose: 50 mls/hr Colistimethate Sodium 60 mg/ (Sodium Chloride) 100 mls @ 200 mls/hr IV Q12H [facility] ; Protocol Last Admin: 11/15/18 10:19 Dose: 200 mls/hr Insulin Human Regular (Novolin R) 0 unit SC Q6H [facility]; Protocol Last Admin: 11/15/18 18:07 Dose: 3 u Levetiracetam (Keppra) 500 mg PO BID [facility] Last Admin: 11/15/18 18:00 Dose: 500 mg Methylprednisolone (Solu-Medrol) 40 mg IVP Q6H [facility] Last Admin: 11/15/18 16:46 Dose: 40 mg Valproate Sodium (Depakene Oral Soln) 250 mg PO BID [facility] Last Admin: 11/15/18 18:00 Dose: 250 mg - Labs Labs: 11/15/18 06:10 11/15/18 06:10 PT 13.0 SECONDS (9.7-12.2) H 11/14/18 06:02 INR 1.2 11/14/18 06:02 APTT 41 SECONDS (21-34) H 11/13/18 13:48
--- NOTE | 2018-11-15 23:26 | CP.PCM.PN ---
Subjective - Date & Time of Evaluation Date of Evaluation: 11/15/18 Time of Evaluation: 17:00 - Subjective Subjective: dictated Objective - Vital Signs/Intake and Output Vital Signs (last 24 hours): Temp Pulse Resp BP Pulse Ox 98.7 F 82 23 130/68 97 11/15/18 20:00 11/15/18 22:47 11/15/18 22:47 11/15/18 22:47 11/15/18 21:47 Intake and Output: 11/15/18 11/16/18 18:59 06:59 Intake Total 880 400 Output Total 2600 200 Balance -1720 200 - Medications Medications: Current Medications Albuterol/Ipratropium (Duoneb 3 Mg/0.5 Mg (3 Ml) Ud) 3 ml INH RQ6 [facility] Last Admin: 11/15/18 19:34 Dose: 3 ml Enoxaparin Sodium (Lovenox) 40 mg SC DAILY [facility] Last Admin: 11/15/18 10:16 Dose: 40 mg Famotidine (Pepcid) 20 mg GT Q12 [facility] Last Admin: 11/15/18 22:33 Dose: 20 mg Propofol (Diprivan) 1,000 mg in 100 mls @ 1.716 mls/hr IV .Q24H PRN; Protocol PRN Reason: TITRATE PER MD ORDER Last Titration: 11/15/18 06:07 Dose: 0 mcg/kg/min, 0 mls/hr Voriconazole 200 mg/ Sodium (Chloride) 100 mls @ 100 mls/hr IVPB Q12H [facility] Last Admin: 11/15/18 13:32 Dose: 100 mls/hr Ceftazidime/Avibactam 2.5 gm/ (Sodium Chloride) 100 mls @ 50 mls/hr IV Q8H [facility]; Protocol Last Admin: 11/15/18 20:13 Dose: 50 mls/hr Colistimethate Sodium 60 mg/ (Sodium Chloride) 100 mls @ 200 mls/hr IV Q12H [facility]; Protocol Last Admin: 11/15/18 22:33 Dose: 200 mls/hr Insulin Human Regular (Novolin R) 0 unit SC Q6H [facility]; Protocol Last Admin: 11/15/18 18:07 Dose: 3 u Levetiracetam (Keppra) 500 mg PO BID [facility] Last Admin: 11/15/18 18:00 Dose: 500 mg Methylprednisolone (Solu-Medrol) 40 mg IVP Q6H [facility] Last Admin: 11/15/18 22:33 Dose: 40 mg Valproate Sodium (Depakene Oral Soln) 250 mg PO BID [facility] Last Admin: 11/15/18 18:00 Dose: 250 mg - Labs Labs: 11/15/18 06:10 11/15/18 06:10 PT 13.0 SECONDS (9.7-12.2) H 11/14/18 06:02 INR 1.2 11/14/18 06:02 APTT 41 SECONDS (21-34) H 11/13/18 13:48
[2018-11-16] MEDS: (Novolin R) Insulin Human Regular 100 units/ml vial SC SCH ×5 (00:30→23:55)
[2018-11-16] MEDS: Albuterol-Ipratrop 3 mg / 0.5 (3 ml) UD INH SCH ×4 (01:53→20:17)
[2018-11-16] MEDS: MethylPREDNISolone 40 mg Vial IVP SCH ×4 (03:10→22:52)
--- NOTE | 2018-11-16 03:45 | PN ---
DATE: 11/15/2018 SUBJECTIVE: The patient was seen. He has Acinetobacter. He remains with eyes open but does not focus. He is status post PEG insertion and remains on the ventilator. He is afebrile. However, he will be transferred to [facility] but he has Acinetobacter. He is on Mycamine and I have put him on colistin and Avycaz at this time for the Acinetobacter which grew. PHYSICAL EXAMINATION: VITAL SIGNS: The patient remains afebrile, T-max 98.7, pulse is 82, blood pressure 129/68, respirations are 22. HEENT: Head is atraumatic and normocephalic. NECK: Supple. LUNGS: Clear. Decreased breath sounds bilaterally, intubated, had a PEG. HEART: S1, S2. Regular. ABDOMEN: Soft, nontender. EXTREMITIES: Have bilateral foot protectors. LABORATORY DATA: Show white count is 8.1, hemoglobin 8, hematocrit 25.1, platelet count is 349. He remains anemic. Sodium is 137, potassium 3.9, chloride 105, CO2 is 30, anion gap is 6 and that is unremarkable. MEDICATIONS: His medications were renewed. ASSESSMENT AND PLAN: His creatinine is unremarkable; however, since he is on vent, it may be difficult to get rid of these difficult organisms which he has. 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 He had Staphylococcus aureus methicillin sensitive in the sputum prior to having Acinetobacter, and he also had one blood culture positive for coagulase-negative staphylococcus and came with a line which was discontinued, so we continued vancomycin. Prognosis remains guarded. We will follow. Jenna Fine MD
[2018-11-16 05:37] LABS: ABG ALLEN TEST POS; ARTERIAL BLOOD GAS HCO3 31.8 mmol/L (21-28); ARTERIAL BLOOD GAS HEMOGLOBIN 8.1 g/dL (11.7-17.4); ARTERIAL BLOOD GAS O2 SAT 98.6 % (95-98); ARTERIAL BLOOD GAS PCO2 42 mm/Hg (35-45); ARTERIAL BLOOD GAS PO2 98 mm/Hg (80-100); ARTERIAL BLOOD GAS TCO2 34.1 mmol/L (22-28)
[2018-11-16 05:42] LABS: BASO % 0.1 % (0.0-2.0); HEMOGLOBIN 8.1 g/dL (12.0-18.0); LYMPH # 1.6 K/uL (1.0-4.3); LYMPH % 23.5 % (20.0-40.0); MEAN CELL VOLUME 79.6 fL (80.0-94.0); MEAN CORPUSCULAR HEMOGLOBIN 25.6 pg (27.0-31.0); MEAN CORPUSCULAR HGB CONC 32.2 g/dL (33.0-37.0); MONO # 0.1 K/uL (0.0-0.8); MONO % 1.4 % (0.0-10.0); NEUT # 5.1 K/uL (1.8-7.0); NRBC % 0.1 % (0.0-2.0); RBC 3.18 Mil/uL (4.40-5.90); RED CELL DISTRIBUTION WIDTH 20.8 % (11.5-14.5); WHITE BLOOD COUNT 6.8 K/uL (4.8-10.8)
[2018-11-16 06:00] LABS: ALB/GLOB RATIO 0.5 (1.0-2.1); ALBUMIN 2.5 g/dL (3.5-5.0); ALT/SGPT 8 U/L (21-72); AST/SGOT 14 U/L (17-59); BLOOD UREA NITROGEN 23 mg/dL (9-20); CALCIUM 7.9 mg/dl (8.6-10.4); GFR NON-AFRICAN AMERICAN > 60
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
[2018-11-16] MEDS: Valproic Acid 250 mg/5 ml UD Cup PO SCH ×2 (09:02→18:04)
[2018-11-16] MEDS: levETIRAcetam 100 mg/ml (5ml) Oral Syringe PO SCH ×2 (09:02→18:04)
[2018-11-16] MEDS: Enoxaparin 40 mg Syringe SC SCH (09:02)
[2018-11-16] MEDS: COLISTIMETHATE IV SCH (10:00)
[2018-11-16] MEDS: SODIUM CHLORIDE 0.9% IV SCH (10:00)
--- NOTE | 2018-11-16 10:46 | RAD ---
Date of service: 11/16/2018 HISTORY: intubated COMPARISON: 11/15/2018. FINDINGS: The right IJV line terminates in the SVC. Endotracheal tube terminates 3.3 cm proximal to the pito. LUNGS: The lungs are well inflated. There is redemonstration of nodular opacities in both lungs. Interval mild improved aeration since the prior examination. PLEURA: No pleural effusions or pneumothorax. CARDIOVASCULAR: The heart is normal in size. There are aortic atherosclerotic calcifications present. OSSEOUS STRUCTURES: Within normal limits for the patient's age. VISUALIZED UPPER ABDOMEN: Normal. OTHER FINDINGS: None. IMPRESSION: Little interval change in nodular opacities in both lungs which may represent pulmonary venous congestion however multifocal pneumonia is also a consideration. Follow-up is advised. Interval mild improved aeration in the lungs.
[2018-11-16 17:06] LABS: ABG ALLEN TEST A; ARTERIAL BLOOD GAS HCO3 30.1 mmol/L (21-28); ARTERIAL BLOOD GAS O2 SAT 97.6 % (95-98); ARTERIAL BLOOD GAS PCO2 39 mm/Hg (35-45); ARTERIAL BLOOD GAS PO2 76 mm/Hg (80-100); ARTERIAL BLOOD GAS TCO2 31.6 mmol/L (22-28)
--- NOTE | 2018-11-16 22:24 | CP.PCM.PN ---
Subjective - Date & Time of Evaluation Date of Evaluation: 11/16/18 Time of Evaluation: 10:15 - Subjective Subjective: clinically same Objective - Vital Signs/Intake and Output Vital Signs (last 24 hours): Temp Pulse Resp BP Pulse Ox 98.1 F 67 24 152/72 H 98 11/16/18 20:00 11/16/18 20:04 11/16/18 20:04 11/16/18 20:04 11/16/18 20:04 Intake and Output: 11/16/18 11/17/18 18:59 06:59 Intake Total 420 175 Output Total 430 Balance -10 175 - Medications Medications: Current Medications Albuterol/Ipratropium (Duoneb 3 Mg/0.5 Mg (3 Ml) Ud) 3 ml INH RQ6 [facility] Last Admin: 11/16/18 20:17 Dose: 3 ml Enoxaparin Sodium (Lovenox) 40 mg SC DAILY [facility] Last Admin: 11/16/18 09:02 Dose: 40 mg Famotidine (Pepcid) 20 mg GT Q12 [facility] Last Admin: 11/16/18 21:16 Dose: 20 mg Voriconazole 200 mg/ Sodium (Chloride) 100 mls @ 100 mls/hr IVPB Q12H [facility] Last Admin: 11/16/18 13:00 Dose: 100 mls/hr Ceftazidime/Avibactam 2.5 gm/ (Sodium Chloride) 100 mls @ 50 mls/hr IV Q8H [facility]; Protocol Last Admin: 11/16/18 20:12 Dose: 50 mls/hr Insulin Human Regular (Novolin R) 0 unit SC Q6H [facility]; Protocol Last Admin: 11/16/18 18:04 Dose: 3 u Levetiracetam (Keppra) 500 mg PO BID [facility] Last Admin: 11/16/18 18:04 Dose: 500 mg Methylprednisolone (Solu-Medrol) 40 mg IVP Q6H [facility] Last Admin: 11/16/18 17:00 Dose: 40 mg Valproate Sodium (Depakene Oral Soln) 250 mg PO BID [facility] Last Admin: 11/16/18 18:04 Dose: 250 mg - Labs Labs: 11/16/18 05:38 11/16/18 05:38 PT 13.0 SECONDS (9.7-12.2) H 11/14/18 06:02 INR 1.2 11/14/18 06:02 APTT 41 SECONDS (21-34) H 11/13/18 13:48
[2018-11-17] MEDS: Albuterol-Ipratrop 3 mg / 0.5 (3 ml) UD INH SCH ×4 (01:22→20:09)
[2018-11-17] MEDS: MethylPREDNISolone 40 mg Vial IVP SCH ×4 (04:18→21:22)
[2018-11-17 06:12] LABS: BASO % 0.2 % (0.0-2.0); HEMOGLOBIN 7.8 g/dL (12.0-18.0); LYMPH # 0.8 K/uL (1.0-4.3); LYMPH % 12.8 % (20.0-40.0); MEAN CORPUSCULAR HEMOGLOBIN 25.5 pg (27.0-31.0); MEAN CORPUSCULAR HGB CONC 31.8 g/dL (33.0-37.0); MEAN PLATELET VOLUME 9.3 fL (7.2-11.7); MONO # 0.1 K/uL (0.0-0.8); MONO % 1.5 % (0.0-10.0); NEUT # 5.6 K/uL (1.8-7.0); NEUT % 85.5 % (50.0-75.0); RBC 3.07 Mil/uL (4.40-5.90); RED CELL DISTRIBUTION WIDTH 20.8 % (11.5-14.5); WHITE BLOOD COUNT 6.6 K/uL (4.8-10.8)
[2018-11-17] MEDS: (Novolin R) Insulin Human Regular 100 units/ml vial SC SCH ×3 (06:23→18:56)
[2018-11-17 06:40] LABS: ALB/GLOB RATIO 0.6 (1.0-2.1); ALBUMIN 2.5 g/dL (3.5-5.0); ALT/SGPT 10 U/L (21-72); AST/SGOT 14 U/L (17-59); BLOOD UREA NITROGEN 33 mg/dL (9-20); CALCIUM 7.9 mg/dl (8.6-10.4); GFR NON-AFRICAN AMERICAN > 60
[2018-11-17] MEDS: Valproic Acid 250 mg/5 ml UD Cup PO SCH ×2 (09:20→17:42)
[2018-11-17] MEDS: levETIRAcetam 100 mg/ml (5ml) Oral Syringe PO SCH ×2 (09:20→17:42)
[2018-11-17] MEDS: Enoxaparin 40 mg Syringe SC SCH (09:21)
[2018-11-17] MEDS: Potassium Chloride 20 mEq/15 ml LIQ UD PO SCH ×2 (09:22→19:58)
--- NOTE | 2018-11-17 10:42 | CP.PCM.PN ---
Subjective - Date & Time of Evaluation Date of Evaluation: 11/17/18 Time of Evaluation: 10:39 - Subjective Subjective: Patient awake, alert less agitated, but moving upper and lower extremitites randomly Objective - Vital Signs/Intake and Output Vital Signs (last 24 hours): Temp Pulse Resp BP Pulse Ox 98.3 F 87 26 H 136/52 L 90 L 11/17/18 08:00 11/17/18 08:03 11/17/18 08:03 11/17/18 09:20 11/17/18 08:03 Intake and Output: 11/17/18 11/17/18 06:59 18:59 Intake Total 375 Output Total 150 Balance 225 - Medications Medications: Current Medications Albuterol/Ipratropium (Duoneb 3 Mg/0.5 Mg (3 Ml) Ud) 3 ml INH RQ6 [facility] Last Admin: 11/17/18 07:15 Dose: 3 ml Bisacodyl (Dulcolax) 10 mg [place] ONCE PRN PRN Reason: Constipation Enoxaparin Sodium (Lovenox) 40 mg SC DAILY [facility] Last Admin: 11/17/18 09:21 Dose: 40 mg Famotidine (Pepcid) 20 mg GT Q12 [facility] Last Admin: 11/17/18 09:21 Dose: 20 mg Haloperidol (Haldol) 5 mg PO ONCE ONE Stop: 11/17/18 10:46 Voriconazole 200 mg/ Sodium (Chloride) 100 mls @ 100 mls/hr IVPB Q12H [facility] Last Admin: 11/17/18 01:14 Dose: 100 mls/hr Ceftazidime/Avibactam 2.5 gm/ (Sodium Chloride) 100 mls @ 50 mls/hr IV Q8H [facility]; Protocol Last Admin: 11/17/18 04:18 Dose: 50 mls/hr Insulin Human Regular (Novolin R) 0 unit SC Q6H [facility]; Protocol Last Admin: 11/17/18 06:23 Dose: 3 u Levetiracetam (Keppra) 500 mg PO BID [facility] Last Admin: 11/17/18 09:20 Dose: 500 mg Methylprednisolone (Solu-Medrol) 40 mg IVP Q6H [facility] Last Admin: 11/17/18 09:20 Dose: 40 mg Potassium Chloride (Potassium Chloride Oral Soln) 40 meq PO Q12H [facility] Stop: 11/17/18 20:46 Last Admin: 11/17/18 09:22 Dose: 40 meq Risperidone (Risperdal Tab) 0.5 mg PO BID [facility] Valproate Sodium (Depakene Oral Soln) 250 mg PO BID [facility] Last Admin: 11/17/18 09:20 Dose: 250 mg - Labs Labs: 11/17/18 06:05 11/17/18 06:05 PT 13.0 SECONDS (9.7-12.2) H 11/14/18 06:02 INR 1.2 11/14/18 06:02 APTT 41 SECONDS (21-34) H 11/13/18 13:48 - Head Exam Head Exam: ATRAUMATIC, NORMAL INSPECTION - Respiratory Exam Respiratory Exam: Clear to Ausculation Bilateral, NORMAL BREATHING PATTERN. absent: Rales, Rhonchi, Wheezes, Stridor - Cardiovascular Exam Cardiovascular Exam: REGULAR RHYTHM, +S1, +S2 - GI/Abdominal Exam GI & Abdominal Exam: Normal Bowel Sounds - Extremities Exam Extremities Exam: Normal Capillary Refill, Normal Inspection - Neurological Exam Neurological Exam: Awake - Skin Skin Exam: Normal Color Assessment and Plan - Assessment and Plan (Free Text) Assessment: Hypoxic respiratory failure:extubated, on aerosol -COPD: continue bronchodilators + solumedrol, suspect restrictive lung disease PNA/colonization: MDRO acenatobacter, continue abx a per ID, de-escalate early -PEG tube feed: continue tube feeds -continue dvt/pud ppx -diuresis today -agitation haldol/risperidone -oob to chair -aspiration precautions -continue all other treatment
--- NOTE | 2018-11-17 10:54 | RAD ---
Date of service: 11/17/2018 HISTORY: intubated COMPARISON: 11/16/2018 FINDINGS: The right IJV line terminates in the SVC. LUNGS: The lungs are well inflated. There is redemonstration of nodular airspace disease in both lungs without interval change. No consolidation. PLEURA: No pleural effusions or pneumothorax. CARDIOVASCULAR: The heart is normal in size. No aortic atherosclerotic calcification present. OSSEOUS STRUCTURES: Within normal limits for the patient's age. VISUALIZED UPPER ABDOMEN: Normal. OTHER FINDINGS: None. IMPRESSION: Nodular airspace disease in both lungs without interval change may represent interstitial edema or pneumonitis. No significant interval change with
--- NOTE | 2018-11-17 11:30 | CP.PCM.PN ---
Subjective - Date & Time of Evaluation Date of Evaluation: 11/17/18 Time of Evaluation: 10:20 - Subjective Subjective: patient seen and examined Extubated and saturation in the low 90s Congested Out of bed to chair Objective - Vital Signs/Intake and Output Vital Signs (last 24 hours): Temp Pulse Resp BP Pulse Ox 98.3 F 87 26 H 136/52 L 90 L 11/17/18 08:00 11/17/18 08:03 11/17/18 08:03 11/17/18 09:20 11/17/18 08:03 Intake and Output: 11/17/18 11/17/18 06:59 18:59 Intake Total 375 Output Total 150 Balance 225 - Medications Medications: Current Medications Albuterol/Ipratropium (Duoneb 3 Mg/0.5 Mg (3 Ml) Ud) 3 ml INH RQ6 [facility] Last Admin: 11/17/18 07:15 Dose: 3 ml Bisacodyl (Dulcolax) 10 mg [place] ONCE PRN PRN Reason: Constipation Enoxaparin Sodium (Lovenox) 40 mg SC DAILY [facility] Last Admin: 11/17/18 09:21 Dose: 40 mg Famotidine (Pepcid) 20 mg GT Q12 [facility] Last Admin: 11/17/18 09:21 Dose: 20 mg Voriconazole 200 mg/ Sodium (Chloride) 100 mls @ 100 mls/hr IVPB Q12H [facility] Last Admin: 11/17/18 01:14 Dose: 100 mls/hr Ceftazidime/Avibactam 2.5 gm/ (Sodium Chloride) 100 mls @ 50 mls/hr IV Q8H [facility]; Protocol Last Admin: 11/17/18 04:18 Dose: 50 mls/hr Insulin Human Regular (Novolin R) 0 unit SC Q6H [facility]; Protocol Last Admin: 11/17/18 06:23 Dose: 3 u Levetiracetam (Keppra) 500 mg PO BID [facility] Last Admin: 11/17/18 09:20 Dose: 500 mg Methylprednisolone (Solu-Medrol) 40 mg IVP Q6H [facility] Last Admin: 11/17/18 09:20 Dose: 40 mg Potassium Chloride (Potassium Chloride Oral Soln) 40 meq PO Q12H [facility] Stop: 11/17/18 20:46 Last Admin: 11/17/18 09:22 Dose: 40 meq Risperidone (Risperdal Tab) 0.5 mg PO BID [facility] Valproate Sodium (Depakene Oral Soln) 250 mg PO BID [facility] Last Admin: 11/17/18 09:20 Dose: 250 mg - Labs Labs: 11/17/18 06:05 11/17/18 06:05 PT 13.0 SECONDS (9.7-12.2) H 11/14/18 06:02 INR 1.2 11/14/18 06:02 APTT 41 SECONDS (21-34) H 11/13/18 13:48 - Head Exam Head Exam: ATRAUMATIC, NORMOCEPHALIC - ENT Exam ENT Exam: Mucous Membranes Moist - Respiratory Exam Respiratory Exam: Rales, Rhonchi - Cardiovascular Exam Cardiovascular Exam: REGULAR RHYTHM - GI/Abdominal Exam GI & Abdominal Exam: Soft, Normal Bowel Sounds Assessment and Plan (1) Pneumonia Assessment & Plan: continue antibiotics for acinobacter chest PT Continue nebulizer treatment Consider have flow oxygen Status: Acute (2) Sepsis Status: Acute (3) Acute respiratory failure with hypoxemia Status: Acute
[2018-11-17 11:43] LABS: ARTERIAL BLOOD GAS HCO3 26.6 mmol/L (21-28); ARTERIAL BLOOD GAS O2 SAT 96.8 % (95-98); ARTERIAL BLOOD GAS PCO2 34 mm/Hg (35-45); ARTERIAL BLOOD GAS PH 7.48 (7.35-7.45); ARTERIAL BLOOD GAS PO2 74 mm/Hg (80-100); ARTERIAL BLOOD GAS TCO2 26.3 mmol/L (22-28)
--- NOTE | 2018-11-17 19:36 | CP.PCM.PN ---
Subjective - Date & Time of Evaluation Date of Evaluation: 11/17/18 Time of Evaluation: 11:30 - Subjective Subjective: clinically same Objective - Vital Signs/Intake and Output Vital Signs (last 24 hours): Temp Pulse Resp BP Pulse Ox 98.0 F 83 30 H 153/75 H 100 11/17/18 16:00 11/17/18 19:03 11/17/18 19:03 11/17/18 19:03 11/17/18 19:03 Intake and Output: 11/17/18 11/18/18 18:59 06:59 Intake Total 600 Output Total 303 Balance 297 - Medications Medications: Current Medications Albuterol/Ipratropium (Duoneb 3 Mg/0.5 Mg (3 Ml) Ud) 3 ml INH RQ6 [facility] Last Admin: 11/17/18 13:04 Dose: 3 ml Bisacodyl (Dulcolax) 10 mg [place] ONCE PRN PRN Reason: Constipation Enoxaparin Sodium (Lovenox) 40 mg SC DAILY [facility] Last Admin: 11/17/18 09:21 Dose: 40 mg Famotidine (Pepcid) 20 mg GT Q12 [facility] Last Admin: 11/17/18 09:21 Dose: 20 mg Voriconazole 200 mg/ Sodium (Chloride) 100 mls @ 100 mls/hr IVPB Q12H [facility] Last Admin: 11/17/18 13:00 Dose: 100 mls/hr Colistimethate Sodium 60 mg/ (Sodium Chloride) 100 mls @ 200 mls/hr IV Q12H [facility]; Protocol Ceftazidime/Avibactam 2.5 gm/ (Sodium Chloride) 100 mls @ 50 mls/hr IV Q8H [facility]; Protocol Insulin Human Regular (Novolin R) 0 unit SC Q6H [facility]; Protocol Last Admin: 11/17/18 18:56 Dose: 6 u Levetiracetam (Keppra) 500 mg PO BID [facility] Last Admin: 11/17/18 17:42 Dose: 500 mg Methylprednisolone (Solu-Medrol) 40 mg IVP Q6H [facility] Last Admin: 11/17/18 17:00 Dose: 40 mg Potassium Chloride (Potassium Chloride Oral Soln) 40 meq PO Q12H [facility] Stop: 11/17/18 20:46 Last Admin: 11/17/18 09:22 Dose: 40 meq Risperidone (Risperdal Tab) 0.5 mg PO BID [facility] Last Admin: 11/17/18 17:00 Dose: 0.5 mg Valproate Sodium (Depakene Oral Soln) 250 mg PO BID [facility] Last Admin: 11/17/18 17:42 Dose: 250 mg - Labs Labs: 11/17/18 06:05 11/17/18 06:05 PT 13.0 SECONDS (9.7-12.2) H 11/14/18 06:02 INR 1.2 11/14/18 06:02 APTT 41 SECONDS (21-34) H 11/13/18 13:48
--- NOTE | 2018-11-17 20:08 | CP.PCM.PN ---
Subjective - Date & Time of Evaluation Date of Evaluation: 11/17/18 Time of Evaluation: 16:00 - Subjective Subjective: dictated Objective - Vital Signs/Intake and Output Vital Signs (last 24 hours): Temp Pulse Resp BP Pulse Ox 98.0 F 83 30 H 153/75 H 100 11/17/18 16:00 11/17/18 19:03 11/17/18 19:03 11/17/18 19:03 11/17/18 19:03 Intake and Output: 11/17/18 11/18/18 18:59 06:59 Intake Total 600 Output Total 303 Balance 297 - Medications Medications: Current Medications Albuterol/Ipratropium (Duoneb 3 Mg/0.5 Mg (3 Ml) Ud) 3 ml INH RQ6 [facility] Last Admin: 11/17/18 13:04 Dose: 3 ml Bisacodyl (Dulcolax) 10 mg [place] ONCE PRN PRN Reason: Constipation Enoxaparin Sodium (Lovenox) 40 mg SC DAILY [facility] Last Admin: 11/17/18 09:21 Dose: 40 mg Famotidine (Pepcid) 20 mg GT Q12 [facility] Last Admin: 11/17/18 09:21 Dose: 20 mg Voriconazole 200 mg/ Sodium (Chloride) 100 mls @ 100 mls/hr IVPB Q12H [facility] Last Admin: 11/17/18 13:00 Dose: 100 mls/hr Colistimethate Sodium 60 mg/ (Sodium Chloride) 100 mls @ 200 mls/hr IV Q12H [facility]; Protocol Ceftazidime/Avibactam 2.5 gm/ (Sodium Chloride) 100 mls @ 50 mls/hr IV Q8H [facility]; Protocol Last Admin: 11/17/18 19:55 Dose: 50 mls/hr Insulin Human Regular (Novolin R) 0 unit SC Q6H [facility]; Protocol Last Admin: 11/17/18 18:56 Dose: 6 u Levetiracetam (Keppra) 500 mg PO BID [facility] Last Admin: 11/17/18 17:42 Dose: 500 mg Methylprednisolone (Solu-Medrol) 40 mg IVP Q6H [facility] Last Admin: 11/17/18 17:00 Dose: 40 mg Potassium Chloride (Potassium Chloride Oral Soln) 40 meq PO Q12H [facility] Stop: 11/17/18 20:46 Last Admin: 11/17/18 19:58 Dose: 40 meq Risperidone (Risperdal Tab) 0.5 mg PO BID [facility] Last Admin: 11/17/18 17:00 Dose: 0.5 mg Valproate Sodium (Depakene Oral Soln) 250 mg PO BID [facility] Last Admin: 11/17/18 17:42 Dose: 250 mg - Labs Labs: 11/17/18 06:05 11/17/18 06:05 PT 13.0 SECONDS (9.7-12.2) H 11/14/18 06:02 INR 1.2 11/14/18 06:02 APTT 41 SECONDS (21-34) H 11/13/18 13:48
[2018-11-17] MEDS: COLISTIMETHATE IV SCH (22:11)
[2018-11-17] MEDS: SODIUM CHLORIDE 0.9% IV SCH (22:11)
--- NOTE | 2018-11-18 01:02 | PN ---
DATE: 11/17/2018 SUBJECTIVE: The patient was extubated. He is on a Ventimask at this time in the ICU. Remains alert, awake. He is moving his extremities, especially the left one. The mittens to be removed; however, he has still Ventimask and oxygen. PHYSICAL EXAMINATION: VITAL SIGNS: T-max is 98.3, pulse 87, blood pressure is 136/52, respirations are still 26. HEENT: Head is atraumatic. He has a triple lumen on the left side. LUNGS: Bilateral rhonchi and few crackles on the bases. HEART: S1 and S2 are regular. ABDOMEN: Soft, nontender. No guarding. No rigidity present. EXTREMITIES: Have no edema. LABORATORY DATA: Labs are noted. Labs show white count is 6.6, hemoglobin is low at 7.8, hematocrit 24.6, platelet count is 321. His ABG is noted, pH is 7.48, CO2 is 26.6, and oxygen came out 74, CO2 is 34 which is acceptable. 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 His x-ray done today shows nodular airspace disease in both lungs without injury or interval change, may represent interstitial edema and pneumonitis. ASSESSMENT AND PLAN: So at this time, we will continue the Avycaz for another six days and colistin and VFEND. The VFEND when he goes from here will be made oral to complete the course of treatment for Aspergillus niger and we will follow. He is status post respiratory failure, bilateral pneumonia, fungal pneumonia, Acinetobacter, now Staphylococcus epidermidis bacteremia and status post peripherally inserted central catheter. We will follow. Jenna Fine MD
[2018-11-18] MEDS: Albuterol-Ipratrop 3 mg / 0.5 (3 ml) UD INH SCH ×2 (01:15→07:37)
[2018-11-18] MEDS: (Novolin R) Insulin Human Regular 100 units/ml vial SC SCH ×4 (01:39→18:39)
[2018-11-18] MEDS: MethylPREDNISolone 40 mg Vial IVP SCH ×2 (03:49→09:43)
[2018-11-18 06:25] LABS: HEMOGLOBIN 7.8 g/dL (12.0-18.0); LYMPH # 0.5 K/uL (1.0-4.3); LYMPH % 8.9 % (20.0-40.0); MEAN CELL VOLUME 79.1 fL (80.0-94.0); MEAN CORPUSCULAR HEMOGLOBIN 25.1 pg (27.0-31.0); MEAN CORPUSCULAR HGB CONC 31.7 g/dL (33.0-37.0); MEAN PLATELET VOLUME 9.1 fL (7.2-11.7); MONO # 0.2 K/uL (0.0-0.8); NEUT # 4.6 K/uL (1.8-7.0); NEUT % 88.1 % (50.0-75.0); PLATELET COUNT 305 K/uL (130-400); WHITE BLOOD COUNT 5.2 K/uL (4.8-10.8)
[2018-11-18 06:29] LABS: ALB/GLOB RATIO 0.6 (1.0-2.1); ALBUMIN 2.7 g/dL (3.5-5.0); ALT/SGPT 13 U/L (21-72); AST/SGOT 14 U/L (17-59); BLOOD UREA NITROGEN 32 mg/dL (9-20); CALCIUM 7.3 mg/dl (8.6-10.4); GFR NON-AFRICAN AMERICAN > 60
[2018-11-18 07:44] LABS: ANISOCYTOSIS MODERATE; BANDS 2 % (0-2); HYPOCHROMIC MODERATE; LYMPHOCYTE 6 % (20-40); MONOCYTE 1 % (0-10); NEUTROPHIL 91 % (50-75); PLATELET ESTIMATE NORMAL (NORMAL); TOTAL CELLS COUNTED 100
[2018-11-18 07:45] LABS: OVALOCYTES SLIGHT
[2018-11-18 08:28] LABS: ARTERIAL BLOOD GAS HCO3 29.2 mmol/L (21-28); ARTERIAL BLOOD GAS O2 SAT 96.7 % (95-98); ARTERIAL BLOOD GAS PCO2 41 mm/Hg (35-45); ARTERIAL BLOOD GAS PH 7.47 (7.35-7.45); ARTERIAL BLOOD GAS PO2 74 mm/Hg (80-100); ARTERIAL BLOOD GAS TCO2 31.1 mmol/L (22-28)
[2018-11-18] MEDS ORDERED: Potassium Phosphate 20 MMOLE in Sodium Chloride 0.9% 250 ML IV ONE (08:30)
--- NOTE | 2018-11-18 08:42 | CP.CCUPN ---
CCU Subjective - Physician Review Subjective (Free Text): ICU Progress Note for Dr. Momin Patient seen and examined at bedside this morning. s/p extubation day 2. Patient resting comfortably in bed and awake. Patient's RT who speaks patient's primary language, Gujarati, states that he is still not responding to him despite extubation. Patient downgraded to telemetry per attending. Further management per medicine team CCU Objective - Vital Signs / Intake & Output Vital Signs (Last 4 hours): Vital Signs Pulse Resp BP Pulse Ox 11/18/18 06:04 71 26 H 159/66 H 95 11/18/18 05:04 75 24 174/83 H 100 Intake and Output (Last 8hrs): Intake & Output 11/17/18 11/18/18 11/18/18 22:59 06:59 14:59 Intake Total 420 560 Output Total 1 200 Balance 419 360 Weight 112 lb Intake: Intake, IV Amount 100 200 Right Distal Port 100 200 Internal Jugular Tube Feeding 320 360 Output: Urine 200 Condom 200 Urine/Stool Mix 1 - Physical Exam Head: Positive for: Atraumatic, Normocephalic Extroacular Muscles: Positive for: EOMI Conjunctiva: Positive for: Normal Respiratory/Chest: Positive for: Clear to Auscultation, Good Air Exchange, Wheezes (slight expiratory wheeze right middle lobe). Negative for: Respiratory Distress Cardiovascular: Positive for: Regular Rate and Rhythm, Normal S1, S2 Abdomen: Positive for: Other (PEG tube with surrounding dressing c/d/i). Negative for: Tenderness, Distention, Rebound, Guarding Upper Extremity: Positive for: Normal Inspection Lower Extremity: Positive for: Normal Inspection. Negative for: Edema Neurological: Positive for: Other Skin: Positive for: Warm, Dry, Normal Color Psychiatric: Positive for: Alert - Medications Active Medications: Active Medications Generic Name Dose Route Start Last Admin Trade Name Freq PRN Reason Stop Dose Admin Albuterol/Ipratropium 3 ml 11/15/18 14:00 11/18/18 07:37 Duoneb 3 Mg/0.5 Mg (3 Ml) Ud INH 3 ml RQ6 HUMBERTO Administration Bisacodyl 10 mg 11/17/18 08:42 Dulcolax SC ONCE PRN Constipation Enoxaparin Sodium 40 mg 11/04/18 10:00 11/17/18 09:21 Lovenox SC 40 mg DAILY HUMBERTO Administration Famotidine 20 mg 11/11/18 10:00 11/17/18 21:22 Pepcid GT 20 mg Q12 HUMBERTO Administration Voriconazole 200 mg/ Sodium 100 mls @ 100 mls/hr 11/10/18 02:00 11/18/18 01:38 Chloride IVPB 100 mls/hr Q12H HUMBERTO Administration Colistimethate Sodium 60 mg/ 100 mls @ 200 mls/hr 11/17/18 23:00 11/17/18 22:11 Sodium Chloride IV 200 mls/hr Q12H HUMBERTO Administration Protocol Ceftazidime/Avibactam 2.5 gm/ 100 mls @ 50 mls/hr 11/17/18 20:00 11/18/18 03:38 Sodium Chloride IV 50 mls/hr Q8H HUMBERTO Administration Protocol Potassium Phosphate 20 mmole/ 256.6667 mls @ 63 mls/hr 11/18/18 08:30 Sodium Chloride IV 11/18/18 12:34 ONCE ONE Insulin Human Regular 0 unit 11/15/18 18:15 11/18/18 06:03 Novolin R SC 3 u Q6H HUMBERTO Administration Protocol Levetiracetam 500 mg 11/03/18 21:00 11/17/18 17:42 Keppra PO 500 mg BID HUMBERTO Administration Methylprednisolone 40 mg 11/15/18 10:00 11/18/18 03:49 Solu-Medrol IVP 40 mg Q6H HUMBERTO Administration Risperidone 0.5 mg 11/17/18 18:00 11/17/18 17:00 Risperdal Tab PO 0.5 mg BID HUMBERTO Administration Valproate Sodium 250 mg 11/03/18 21:00 11/17/18 17:42 Depakene Oral Soln PO 250 mg BID HUMBERTO Administration - Patient Studies Lab Studies: Lab Studies 11/18/18 11/18/18 11/18/18 Range/Units 08:25 06:10 06:09 WBC 5.2 (4.8-10.8) K/uL RBC 3.10 L (4.40-5.90) Mil/uL Hgb 7.8 L (12.0-18.0) g/dL Hct 24.6 L (35.0-51.0) % MCV 79.1 L (80.0-94.0) fL MCH 25.1 L (27.0-31.0) pg MCHC 31.7 L (33.0-37.0) g/dL RDW 21.0 H (11.5-14.5) % Plt Count 305 (130-400) K/uL MPV 9.1 (7.2-11.7) fL Neut % (Auto) 88.1 H (50.0-75.0) % Lymph % (Auto) 8.9 L (20.0-40.0) % [place] % (Auto) 3.0 (0.0-10.0) % Eos % (Auto) 0.0 (0.0-4.0) % Baso % (Auto) 0.0 (0.0-2.0) % Neut # (Auto) 4.6 (1.8-7.0) K/uL Lymph # (Auto) 0.5 L (1.0-4.3) K/uL [place] # (Auto) 0.2 (0.0-0.8) K/uL Eos # (Auto) 0.0 (0.0-0.7) K/uL Baso # (Auto) 0.0 (0.0-0.2) K/uL Neutrophils % (Manual) 91 H (50-75) % Band Neutrophils % 2 (0-2) % Lymphocytes % (Manual) 6 L (20-40) % Monocytes % (Manual) 1 (0-10) % Platelet Estimate Normal (NORMAL) Hypochromasia (manual) Moderate Anisocytosis (manual) Moderate Ovalocytes Slight Puncture Site Rba pCO2 41 (35-45) mm/Hg pO2 74 L (80-100) mm/Hg HCO3 29.2 H (21-28) mmol/L ABG pH 7.47 H (7.35-7.45) ABG Total CO2 31.1 H (22-28) mmol/L ABG O2 Saturation 96.7 (95-98) % ABG Base Excess 5.6 H (-2.0-3.0) mmol/L Ruiz Test Na ABG Potassium 3.5 L (3.6-5.2) mmol/L A-a O2 Difference 124.0 mm/Hg Respiratory Index 1.7 Sodium 144.0 141 (132-148) mmol/l Chloride 112.0 H 105 (98-107) mmol/L Glucose 189 H (75-110) mg/dl Lactate 1.2 (0.7-2.1) mmol/L FiO2 35.0 % Potassium 3.6 (3.6-5.2) mmol/L Carbon Dioxide 29 (22-30) mmol/L Anion Gap 10 (10-20) BUN 32 H (9-20) mg/dL Creatinine 0.7 L (0.8-1.5) mg/dL Est GFR ( Amer) > 60 Est GFR (Non-Af Amer) > 60 POC Glucose (mg/dL) (65-110) mg/dL Random Glucose 163 H (75-110) mg/dL Calcium 7.3 L (8.6-10.4) mg/dl Phosphorus 2.1 L (2.5-4.5) mg/dL Magnesium 1.8 (1.6-2.3) mg/dL Total Bilirubin 0.2 (0.2-1.3) mg/dL AST 14 L (17-59) U/L ALT 13 L D (21-72) U/L Alkaline Phosphatase 137 H (38-126) U/L Total Protein 7.0 (6.3-8.3) g/dL Albumin 2.7 L (3.5-5.0) g/dL Globulin 4.3 H (2.2-3.9) gm/dL Albumin/Globulin Ratio 0.6 L (1.0-2.1) Arterial Blood Potassium 3.5 L (3.6-5.2) mmol/L 11/18/18 11/18/18 11/17/18 Range/Units 05:29 00:29 17:27 WBC (4.8-10.8) K/uL RBC (4.40-5.90) Mil/uL Hgb (12.0-18.0) g/dL Hct (35.0-51.0) % MCV (80.0-94.0) fL MCH (27.0-31.0) pg MCHC (33.0-37.0) g/dL RDW (11.5-14.5) % Plt Count (130-400) K/uL MPV (7.2-11.7) fL Neut % (Auto) (50.0-75.0) % Lymph % (Auto) (20.0-40.0) % [place] % (Auto) (0.0-10.0) % Eos % (Auto) (0.0-4.0) % Baso % (Auto) (0.0-2.0) % Neut # (Auto) (1.8-7.0) K/uL Lymph # (Auto) (1.0-4.3) K/uL [place] # (Auto) (0.0-0.8) K/uL Eos # (Auto) (0.0-0.7) K/uL Baso # (Auto) (0.0-0.2) K/uL Neutrophils % (Manual) (50-75) % Band Neutrophils % (0-2) % Lymphocytes % (Manual) (20-40) % Monocytes % (Manual) (0-10) % Platelet Estimate (NORMAL) Hypochromasia (manual) Anisocytosis (manual) Ovalocytes Puncture Site pCO2 (35-45) mm/Hg pO2 (80-100) mm/Hg HCO3 (21-28) mmol/L ABG pH (7.35-7.45) ABG Total CO2 (22-28) mmol/L ABG O2 Saturation (95-98) % ABG Base Excess (-2.0-3.0) mmol/L Ruiz Test ABG Potassium (3.6-5.2) mmol/L A-a O2 Difference mm/Hg Respiratory Index Sodium (132-148) mmol/l Chloride (98-107) mmol/L Glucose (75-110) mg/dl Lactate (0.7-2.1) mmol/L FiO2 % Potassium (3.6-5.2) mmol/L Carbon Dioxide (22-30) mmol/L Anion Gap (10-20) BUN (9-20) mg/dL Creatinine (0.8-1.5) mg/dL Est GFR ( Amer) Est GFR (Non-Af Amer) POC Glucose (mg/dL) 205 H 147 H 320 H (65-110) mg/dL Random Glucose (75-110) mg/dL Calcium (8.6-10.4) mg/dl Phosphorus (2.5-4.5) mg/dL Magnesium (1.6-2.3) mg/dL Total Bilirubin (0.2-1.3) mg/dL AST (17-59) U/L ALT (21-72) U/L Alkaline Phosphatase (38-126) U/L Total Protein (6.3-8.3) g/dL Albumin (3.5-5.0) g/dL Globulin (2.2-3.9) gm/dL Albumin/Globulin Ratio (1.0-2.1) Arterial Blood Potassium (3.6-5.2) mmol/L 11/17/18 11/17/18 Range/Units 11:55 11:39 WBC (4.8-10.8) K/uL RBC (4.40-5.90) Mil/uL Hgb (12.0-18.0) g/dL Hct (35.0-51.0) % MCV (80.0-94.0) fL MCH (27.0-31.0) pg MCHC (33.0-37.0) g/dL RDW (11.5-14.5) % Plt Count (130-400) K/uL MPV (7.2-11.7) fL Neut % (Auto) (50.0-75.0) % Lymph % (Auto) (20.0-40.0) % [place] % (Auto) (0.0-10.0) % Eos % (Auto) (0.0-4.0) % Baso % (Auto) (0.0-2.0) % Neut # (Auto) (1.8-7.0) K/uL Lymph # (Auto) (1.0-4.3) K/uL [place] # (Auto) (0.0-0.8) K/uL Eos # (Auto) (0.0-0.7) K/uL Baso # (Auto) (0.0-0.2) K/uL Neutrophils % (Manual) (50-75) % Band Neutrophils % (0-2) % Lymphocytes % (Manual) (20-40) % Monocytes % (Manual) (0-10) % Platelet Estimate (NORMAL) Hypochromasia (manual) Anisocytosis (manual) Ovalocytes Puncture Site Rb pCO2 34 L (35-45) mm/Hg pO2 74 L (80-100) mm/Hg HCO3 26.6 (21-28) mmol/L ABG pH 7.48 H (7.35-7.45) ABG Total CO2 26.3 (22-28) mmol/L ABG O2 Saturation 96.8 (95-98) % ABG Base Excess 2.2 (-2.0-3.0) mmol/L Ruiz Test Na ABG Potassium 2.9 L (3.6-5.2) mmol/L A-a O2 Difference 133.0 mm/Hg Respiratory Index 1.8 Sodium 148.0 (132-148) mmol/l Chloride 115.0 H (98-107) mmol/L Glucose 166 H (75-110) mg/dl Lactate 1.2 (0.7-2.1) mmol/L FiO2 35.0 % Potassium (3.6-5.2) mmol/L Carbon Dioxide (22-30) mmol/L Anion Gap (10-20) BUN (9-20) mg/dL Creatinine (0.8-1.5) mg/dL Est GFR ( Amer) Est GFR (Non-Af Amer) POC Glucose (mg/dL) 232 H (65-110) mg/dL Random Glucose (75-110) mg/dL Calcium (8.6-10.4) mg/dl Phosphorus (2.5-4.5) mg/dL Magnesium (1.6-2.3) mg/dL Total Bilirubin (0.2-1.3) mg/dL AST (17-59) U/L ALT (21-72) U/L Alkaline Phosphatase (38-126) U/L Total Protein (6.3-8.3) g/dL Albumin (3.5-5.0) g/dL Globulin (2.2-3.9) gm/dL Albumin/Globulin Ratio (1.0-2.1) Arterial Blood Potassium 2.9 L (3.6-5.2) mmol/L Laboratory Results - last 24 hr 11/17/18 11/17/18 11/17/18 11:39 11:55 17:27 WBC RBC Hgb Hct MCV MCH MCHC RDW Plt Count MPV Neut % (Auto) Lymph % (Auto) [place] % (Auto) Eos % (Auto) Baso % (Auto) Neut # (Auto) Lymph # (Auto) [place] # (Auto) Eos # (Auto) Baso # (Auto) Neutrophils % (Manual) Band Neutrophils % Lymphocytes % (Manual) Monocytes % (Manual) Platelet Estimate Hypochromasia (manual) Anisocytosis (manual) Ovalocytes Puncture Site Rb pCO2 34 L pO2 74 L HCO3 26.6 ABG pH 7.48 H ABG Total CO2 26.3 ABG O2 Saturation 96.8 ABG Base Excess 2.2 Ruiz Test Na ABG Potassium 2.9 L A-a O2 Difference 133.0 Respiratory Index 1.8 Sodium 148.0 Chloride 115.0 H Glucose 166 H Lactate 1.2 FiO2 35.0 Potassium Carbon Dioxide Anion Gap BUN Creatinine Est GFR ( Amer) Est GFR (Non-Af Amer) POC Glucose (mg/dL) 232 H 320 H Random Glucose Calcium Phosphorus Magnesium Total Bilirubin AST ALT Alkaline Phosphatase Total Protein Albumin Globulin Albumin/Globulin Ratio Arterial Blood Potassium 2.9 L 11/18/18 11/18/18 11/18/18 00:29 05:29 06:09 WBC RBC Hgb Hct MCV MCH MCHC RDW Plt Count MPV Neut % (Auto) Lymph % (Auto) [place] % (Auto) Eos % (Auto) Baso % (Auto) Neut # (Auto) Lymph # (Auto) [place] # (Auto) Eos # (Auto) Baso # (Auto) Neutrophils % (Manual) Band Neutrophils % Lymphocytes % (Manual) Monocytes % (Manual) Platelet Estimate Hypochromasia (manual) Anisocytosis (manual) Ovalocytes Puncture Site pCO2 pO2 HCO3 ABG pH ABG Total CO2 ABG O2 Saturation ABG Base Excess Ruiz Test ABG Potassium A-a O2 Difference Respiratory Index Sodium 141 Chloride 105 Glucose Lactate FiO2 Potassium 3.6 Carbon Dioxide 29 Anion Gap 10 BUN 32 H Creatinine 0.7 L Est GFR ( Amer) > 60 Est GFR (Non-Af Amer) > 60 POC Glucose (mg/dL) 147 H 205 H Random Glucose 163 H Calcium 7.3 L Phosphorus 2.1 L Magnesium 1.8 Total Bilirubin 0.2 AST 14 L ALT 13 L D Alkaline Phosphatase 137 H Total Protein 7.0 Albumin 2.7 L Globulin 4.3 H Albumin/Globulin Ratio 0.6 L Arterial Blood Potassium 11/18/18 11/18/18 06:10 08:25 WBC 5.2 RBC 3.10 L Hgb 7.8 L Hct 24.6 L MCV 79.1 L MCH 25.1 L MCHC 31.7 L RDW 21.0 H Plt Count 305 MPV 9.1 Neut % (Auto) 88.1 H Lymph % (Auto) 8.9 L [place] % (Auto) 3.0 Eos % (Auto) 0.0 Baso % (Auto) 0.0 Neut # (Auto) 4.6 Lymph # (Auto) 0.5 L [place] # (Auto) 0.2 Eos # (Auto) 0.0 Baso # (Auto) 0.0 Neutrophils % (Manual) 91 H Band Neutrophils % 2 Lymphocytes % (Manual) 6 L Monocytes % (Manual) 1 Platelet Estimate Normal Hypochromasia (manual) Moderate Anisocytosis (manual) Moderate Ovalocytes Slight Puncture Site Rba pCO2 41 pO2 74 L HCO3 29.2 H ABG pH 7.47 H ABG Total CO2 31.1 H ABG O2 Saturation 96.7 ABG Base Excess 5.6 H Ruiz Test Na ABG Potassium 3.5 L A-a O2 Difference 124.0 Respiratory Index 1.7 Sodium 144.0 Chloride 112.0 H Glucose 189 H Lactate 1.2 FiO2 35.0 Potassium Carbon Dioxide Anion Gap BUN Creatinine Est GFR ( Amer) Est GFR (Non-Af Amer) POC Glucose (mg/dL) Random Glucose Calcium Phosphorus Magnesium Total Bilirubin AST ALT Alkaline Phosphatase Total Protein Albumin Globulin Albumin/Globulin Ratio Arterial Blood Potassium 3.5 L Radiology Impressions: Radiology Impressions Chest X-Ray 11/17/18 04:00 IMPRESSION: Nodular airspace disease in both lungs without interval change may represent interstitial edema or pneumonitis. No significant interval change with Fingerstick Blood Sugar Results: 233 Review of Systems - Review of Systems Systems not reviewed;Unavailable: Altered Mental Status (does not answer questions despite extubation) Critical Care Progress Note - Nutrition Nutrition: Nutrition Category Date Time Status NPO Diet [DIET] Diets 11/14/18 Breakfast Active Assessment/Plan - Assessment and Plan (Free Text) Assessment: 63 y/o male with multiple medical problems including PMHx of seizures, DM, CVA, and dementia with respiratory failure. Neuro -seizures: continue with keppra and valproate -history of CVA, paraplegia, and dementia -not on sedation CV -ECHO completed 11/05. Shows thickened aortic valve compared to 12/06. ID, Dr. Fine, recs cardiology consult to r/o endocarditis and OLEG. -cardiology, Dr. Anderson, consult ordered - Dr. Omar Urbina's video game designer preference. He does not recommend OLEG at this time and to just treat underlying infections (see ID) Pulm -admitted with hypercapnic respiratory failure -daily CXR and ABG while intubated -PRVC 450/40/16/5 -s/p extubation 11/16/18 -s/p scheduled duonebs and solumedrol before extubation; CXR indicative of underlying COPD (ex - increased intercostal spacing). GI -no active issues Renal -renal insufficiency -lasix IV x 1 on 11/15 then d/c dumont ID -CXR: bilateral pulmonary infiltrates, hx aspiration PNA -monitor VS and mental status - patient hemodynamically stable currently -11/11: trach asp grew acinobacter baumanii -> contact precautions ordered and abx changed by Dr. Fine as the following: Active abx: --*colistemethate started 11/13 --*ceftazidime/avibactam started 11/13 --*voriconazole given due to past cx positive for asperigillosis, started 11/10 Discontinued abx: --zosyn started 11/04 and d/eleno 11/13 --vanc started 10am on 11/05 and d/eleno 11/13 -11/05: final blood culture - s. aureus and coagulase negative staph -ID, Dr. Fine, following. Appreciate recs. Endo -DM: ISS -hypoglycemia protocol -accuchecks q12h; due to normoglycemia no need to check more frequently Heme -chronic anemia -f/u H/H daily -restarted lovenox 11/15, day after PEG surgery Derm -argon tester recs: prevalon boots, cavilon skin prep, frequent repositioning -PEG suture removal during POD10 (Nov 25) ppx: DVT: lovenox 40 mg sc daily GI: pepcid 20 mg IV q12h diet: PEG feeding glucerna Dispo: Transfer order to med-surg placed 11/18. Will need to discuss patient prognosis and plan of care at length with family. Palliative care aware of case and set family meeting on Nov 20, 2018. case discussed with Dr. Liliane Stanton PGY1
[2018-11-18] MEDS: Valproic Acid 250 mg/5 ml UD Cup PO SCH ×2 (09:05→17:25)
[2018-11-18] MEDS: Enoxaparin 40 mg Syringe SC SCH (09:05)
[2018-11-18] MEDS: levETIRAcetam 100 mg/ml (5ml) Oral Syringe PO SCH ×2 (09:05→17:25)
--- NOTE | 2018-11-18 09:59 | RAD ---
Date of service: 11/18/2018 HISTORY: intubated COMPARISON: 11/17/2028 FINDINGS: LUNGS: Improving diffuse left-sided opacity. Persistent opacity at right base, ill-defined. PLEURA: No significant pleural effusion identified, no pneumothorax apparent. CARDIOVASCULAR: There is atherosclerotic calcification of the thoracic aortic arch. Normal heart size. No congestive change. Right internal jugular central venous catheter unchanged. OSSEOUS STRUCTURES: No significant abnormalities. VISUALIZED UPPER ABDOMEN: Normal. OTHER FINDINGS: None. IMPRESSION: Persistent mild ill-defined opacity at right base. Resolved left-sided opacity.
[2018-11-18] MEDS: SODIUM CHLORIDE 0.9% IV SCH ×2 (10:00→22:17)
[2018-11-18] MEDS: COLISTIMETHATE IV SCH ×2 (10:00→22:17)
--- NOTE | 2018-11-18 11:31 | CP.PCM.PN ---
<Maximiliano Butterfield - Last Filed: 11/18/18 14:47> Subjective - Date & Time of Evaluation Date of Evaluation: 11/18/18 Time of Evaluation: 11:27 - Subjective Subjective: PGY2 Pulm Note for Dr. Tafoya Patient seen and examined this morning at bedside. Patient is sitting up in chair next to bed, saturating at 100% on NC @3L. Patient coughing and congested. Objective - Vital Signs/Intake and Output Vital Signs (last 24 hours): Temp Pulse Resp BP Pulse Ox 98 F 71 26 H 159/66 H 95 11/18/18 04:00 11/18/18 06:04 11/18/18 06:04 11/18/18 06:04 11/18/18 06:04 Intake and Output: 11/18/18 11/18/18 06:59 18:59 Intake Total 820 Output Total 200 Balance 620 - Medications Medications: Current Medications Albuterol/Ipratropium (Duoneb 3 Mg/0.5 Mg (3 Ml) Ud) 3 ml INH RQ6 HUMBERTO Last Admin: 11/18/18 07:37 Dose: 3 ml Bisacodyl (Dulcolax) 10 mg FL ONCE PRN PRN Reason: Constipation Enoxaparin Sodium (Lovenox) 40 mg SC DAILY HUMBERTO Last Admin: 11/18/18 09:05 Dose: 40 mg Famotidine (Pepcid) 20 mg GT Q12 HUMBERTO Last Admin: 11/18/18 09:05 Dose: 20 mg Voriconazole 200 mg/ Sodium (Chloride) 100 mls @ 100 mls/hr IVPB Q12H HUMBERTO Last Admin: 11/18/18 01:38 Dose: 100 mls/hr Colistimethate Sodium 60 mg/ (Sodium Chloride) 100 mls @ 200 mls/hr IV Q12H HUMBERTO; Protocol Last Admin: 11/17/18 22:11 Dose: 200 mls/hr Ceftazidime/Avibactam 2.5 gm/ (Sodium Chloride) 100 mls @ 50 mls/hr IV Q8H HUMBERTO; Protocol Last Admin: 11/18/18 03:38 Dose: 50 mls/hr Potassium Phosphate 20 mmole/ (Sodium Chloride) 256.6667 mls @ 63 mls/hr IV ONCE ONE Stop: 11/18/18 12:34 Last Admin: 11/18/18 09:15 Dose: 63 mls/hr Insulin Human Regular (Novolin R) 0 unit SC Q6H [facility]; Protocol Last Admin: 11/18/18 06:03 Dose: 3 u Levetiracetam (Keppra) 500 mg PO BID [facility] Last Admin: 11/18/18 09:05 Dose: 500 mg Methylprednisolone (Solu-Medrol) 40 mg IVP Q6H [facility] Last Admin: 11/18/18 09:43 Dose: 40 mg Risperidone (Risperdal Tab) 0.5 mg PO BID [facility] Last Admin: 11/18/18 09:05 Dose: 0.5 mg Valproate Sodium (Depakene Oral Soln) 250 mg PO BID [facility] Last Admin: 11/18/18 09:05 Dose: 250 mg Vitamin A (Vitamin A & D Oint Ud Foilpak) 1 ea TOP BID [facility] - Labs Labs: 11/18/18 06:10 11/18/18 06:09 PT 13.0 SECONDS (9.7-12.2) H 11/14/18 06:02 INR 1.2 11/14/18 06:02 APTT 41 SECONDS (21-34) H 11/13/18 13:48 - Constitutional Appears: No Acute Distress, Chronically Ill - Head Exam Head Exam: ATRAUMATIC, NORMOCEPHALIC - Eye Exam Eye Exam: Normal appearance - ENT Exam ENT Exam: Mucous Membranes Moist - Respiratory Exam Respiratory Exam: Rales, Rhonchi. absent: Accessory Muscle Use, Wheezes, Respiratory Distress - Cardiovascular Exam Cardiovascular Exam: REGULAR RHYTHM - GI/Abdominal Exam GI & Abdominal Exam: Soft. absent: Distended, Firm, Guarding, Rigid, Tenderness - Extremities Exam Additional comments: SCDs and pressure ulcer boots in place - Neurological Exam Neurological Exam: Alert, Awake - Skin Skin Exam: Dry, Warm Assessment and Plan (1) Pneumonia Assessment & Plan: Continue antibiotics for Acinetobacer Continue nebulizer treatments Continue oxygen NC @3L Status: Acute (2) Sepsis Assessment & Plan: Continue management per primary team Status: Acute (3) Acute respiratory failure with hypoxemia Status: Acute <Jose Ramon Tafoya - Last Filed: 11/18/18 15:43> Objective - Vital Signs/Intake and Output Vital Signs (last 24 hours): Temp Pulse Resp BP Pulse Ox 97.6 F 81 29 H 172/96 H 100 11/18/18 12:00 11/18/18 12:04 11/18/18 12:04 11/18/18 12:04 11/18/18 12:04 Intake and Output: 11/18/18 11/18/18 06:59 18:59 Intake Total 820 Output Total 200 Balance 620 - Medications Medications: Current Medications Bisacodyl (Dulcolax) 10 mg FL ONCE PRN PRN Reason: Constipation Enoxaparin Sodium (Lovenox) 40 mg SC DAILY [facility] Last Admin: 11/18/18 09:05 Dose: 40 mg Famotidine (Pepcid) 20 mg GT Q12 HUMBERTO Last Admin: 11/18/18 09:05 Dose: 20 mg Voriconazole 200 mg/ Sodium (Chloride) 100 mls @ 100 mls/hr IVPB Q12H HUMBERTO Last Admin: 11/18/18 01:38 Dose: 100 mls/hr Colistimethate Sodium 60 mg/ (Sodium Chloride) 100 mls @ 200 mls/hr IV Q12H [facility]; Protocol Last Admin: 11/18/18 10:00 Dose: 200 mls/hr Ceftazidime/Avibactam 2.5 gm/ (Sodium Chloride) 100 mls @ 50 mls/hr IV Q8H [facility]; Protocol Last Admin: 11/18/18 11:00 Dose: 50 mls/hr Insulin Human Regular (Novolin R) 0 unit SC Q6H HUMBERTO; Protocol Last Admin: 11/18/18 12:18 Dose: 2 u Levetiracetam (Keppra) 500 mg PO BID [facility] Last Admin: 11/18/18 09:05 Dose: 500 mg Risperidone (Risperdal Tab) 0.5 mg PO BID [facility] Last Admin: 11/18/18 09:05 Dose: 0.5 mg Valproate Sodium (Depakene Oral Soln) 250 mg PO BID [facility] Last Admin: 11/18/18 09:05 Dose: 250 mg Vitamin A (Vitamin A & D Oint Ud Foilpak) 1 ea TOP BID [facility] - Labs Labs: 11/18/18 06:10 11/18/18 06:09 PT 13.0 SECONDS (9.7-12.2) H 11/14/18 06:02 INR 1.2 11/14/18 06:02 APTT 41 SECONDS (21-34) H 11/13/18 13:48 Assessment and Plan (1) Pneumonia Status: Acute (2) Sepsis Status: Acute (3) Acute respiratory failure with hypoxemia Status: Acute Attending/Attestation - Attestation I have personally seen and examined this patient.: Yes I have fully participated in the care of the patient.: Yes I have reviewed all pertinent clinical information, including history, physical exam and plan: Yes Notes (Text): 11/18/18 15:43 patient seen and examined saturating well with copious secretions Continue antibiotics Followup chest x-ray
--- NOTE | 2018-11-18 12:36 | CP.PCM.PN ---
Subjective - Date & Time of Evaluation Date of Evaluation: 11/18/18 Time of Evaluation: 12:30 - Subjective Subjective: clinically same Objective - Vital Signs/Intake and Output Vital Signs (last 24 hours): Temp Pulse Resp BP Pulse Ox 97.6 F 81 29 H 172/96 H 100 11/18/18 12:00 11/18/18 12:04 11/18/18 12:04 11/18/18 12:04 11/18/18 12:04 Intake and Output: 11/18/18 11/18/18 06:59 18:59 Intake Total 820 Output Total 200 Balance 620 - Medications Medications: Current Medications Bisacodyl (Dulcolax) 10 mg DC ONCE PRN PRN Reason: Constipation Enoxaparin Sodium (Lovenox) 40 mg SC DAILY [facility] Last Admin: 11/18/18 09:05 Dose: 40 mg Famotidine (Pepcid) 20 mg GT Q12 [facility] Last Admin: 11/18/18 09:05 Dose: 20 mg Voriconazole 200 mg/ Sodium (Chloride) 100 mls @ 100 mls/hr IVPB Q12H [facility] Last Admin: 11/18/18 01:38 Dose: 100 mls/hr Colistimethate Sodium 60 mg/ (Sodium Chloride) 100 mls @ 200 mls/hr IV Q12H [facility]; Protocol Last Admin: 11/18/18 10:00 Dose: 200 mls/hr Ceftazidime/Avibactam 2.5 gm/ (Sodium Chloride) 100 mls @ 50 mls/hr IV Q8H [facility]; Protocol Last Admin: 11/18/18 11:00 Dose: 50 mls/hr Potassium Phosphate 20 mmole/ (Sodium Chloride) 256.6667 mls @ 63 mls/hr IV ONCE ONE Stop: 11/18/18 12:34 Last Admin: 11/18/18 09:15 Dose: 63 mls/hr Insulin Human Regular (Novolin R) 0 unit SC Q6H [facility]; Protocol Last Admin: 11/18/18 12:18 Dose: 2 u Levetiracetam (Keppra) 500 mg PO BID [facility] Last Admin: 11/18/18 09:05 Dose: 500 mg Risperidone (Risperdal Tab) 0.5 mg PO BID [facility] Last Admin: 11/18/18 09:05 Dose: 0.5 mg Valproate Sodium (Depakene Oral Soln) 250 mg PO BID [facility] Last Admin: 11/18/18 09:05 Dose: 250 mg Vitamin A (Vitamin A & D Oint Ud Foilpak) 1 ea TOP BID [facility] - Labs Labs: 11/18/18 06:10 11/18/18 06:09 PT 13.0 SECONDS (9.7-12.2) H 11/14/18 06:02 INR 1.2 11/14/18 06:02 APTT 41 SECONDS (21-34) H 11/13/18 13:48
[2018-11-18] MEDS: Vitamins A & D Oint UD Foilpak TOP SCH (17:25)
--- NOTE | 2018-11-18 18:54 | CP.PCM.PN ---
Subjective - Date & Time of Evaluation Date of Evaluation: 11/18/18 Time of Evaluation: 15:30 - Subjective Subjective: dictated Objective - Vital Signs/Intake and Output Vital Signs (last 24 hours): Temp Pulse Resp BP Pulse Ox 98.2 F 48 L 22 172/66 H 100 11/18/18 16:00 11/18/18 18:04 11/18/18 18:04 11/18/18 18:04 11/18/18 18:04 Intake and Output: 11/18/18 11/18/18 06:59 18:59 Intake Total 820 Output Total 200 Balance 620 - Medications Medications: Current Medications Bisacodyl (Dulcolax) 10 mg CA ONCE PRN PRN Reason: Constipation Enoxaparin Sodium (Lovenox) 40 mg SC DAILY [facility] Last Admin: 11/18/18 09:05 Dose: 40 mg Famotidine (Pepcid) 20 mg GT Q12 [facility] Last Admin: 11/18/18 09:05 Dose: 20 mg Voriconazole 200 mg/ Sodium (Chloride) 100 mls @ 100 mls/hr IVPB Q12H [facility] Last Admin: 11/18/18 13:00 Dose: 100 mls/hr Colistimethate Sodium 60 mg/ (Sodium Chloride) 100 mls @ 200 mls/hr IV Q12H [facility]; Protocol Last Admin: 11/18/18 10:00 Dose: 200 mls/hr Ceftazidime/Avibactam 2.5 gm/ (Sodium Chloride) 100 mls @ 50 mls/hr IV Q8H [facility]; Protocol Last Admin: 11/18/18 11:00 Dose: 50 mls/hr Insulin Human Regular (Novolin R) 0 unit SC Q6H [facility]; Protocol Last Admin: 11/18/18 18:39 Dose: 4 u Levetiracetam (Keppra) 500 mg PO BID [facility] Last Admin: 11/18/18 17:25 Dose: 500 mg Risperidone (Risperdal Tab) 0.5 mg PO BID [facility] Last Admin: 11/18/18 17:25 Dose: 0.5 mg Valproate Sodium (Depakene Oral Soln) 250 mg PO BID [facility] Last Admin: 11/18/18 17:25 Dose: 250 mg Vitamin A (Vitamin A & D Oint Ud Foilpak) 1 ea TOP BID [facility] Last Admin: 11/18/18 17:25 Dose: 1 ea - Labs Labs: 11/18/18 06:10 11/18/18 06:09 PT 13.0 SECONDS (9.7-12.2) H 11/14/18 06:02 INR 1.2 11/14/18 06:02 APTT 41 SECONDS (21-34) H 11/13/18 13:48
--- NOTE | 2018-11-18 23:30 | PN ---
DATE: 11/18/2018 SUBJECTIVE: The patient was extubated. He is doing better, but he is coughing and congested. PHYSICAL EXAMINATION: GENERAL: He was extubated, but he has lot of secretions. VITAL SIGNS: Stable. T-max is 98, pulse 71, respiration is 26, blood pressure 159/66, saturation is 95. LUNGS: Bilateral rhonchi. HEART: S1 and S2 are regular. ABDOMEN: Soft and nontender. EXTREMITIES: No edema. ASSESSMENT AND PLAN: My plan is to continue the Avicus. 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 Will follow up. Jenna Fine MD
[2018-11-19] MEDS: (Novolin R) Insulin Human Regular 100 units/ml vial SC SCH ×4 (00:18→18:36)
[2018-11-19 06:35] LABS: BASO % 0.1 % (0.0-2.0); EOS % 0.1 % (0.0-4.0); HEMOGLOBIN 8.7 g/dL (12.0-18.0); LYMPH # 1.4 K/uL (1.0-4.3); LYMPH % 19.4 % (20.0-40.0); MEAN CELL VOLUME 80.9 fL (80.0-94.0); MEAN CORPUSCULAR HEMOGLOBIN 25.3 pg (27.0-31.0); MEAN CORPUSCULAR HGB CONC 31.2 g/dL (33.0-37.0); MEAN PLATELET VOLUME 9.4 fL (7.2-11.7); MONO # 0.5 K/uL (0.0-0.8); MONO % 6.7 % (0.0-10.0); NEUT # 5.3 K/uL (1.8-7.0); NEUT % 73.7 % (50.0-75.0); NRBC % 0.1 % (0.0-2.0); RBC 3.46 Mil/uL (4.40-5.90); RED CELL DISTRIBUTION WIDTH 20.6 % (11.5-14.5); WHITE BLOOD COUNT 7.2 K/uL (4.8-10.8)
[2018-11-19 07:04] LABS: ALB/GLOB RATIO 0.6 (1.0-2.1); ALBUMIN 2.7 g/dL (3.5-5.0); ALT/SGPT 13 U/L (21-72); AST/SGOT 27 U/L (17-59); BLOOD UREA NITROGEN 35 mg/dL (9-20); GFR NON-AFRICAN AMERICAN > 60
[2018-11-19] MEDS: Enoxaparin 40 mg Syringe SC SCH (10:25)
[2018-11-19] MEDS: levETIRAcetam 100 mg/ml (5ml) Oral Syringe PO SCH ×2 (10:25→17:59)
[2018-11-19] MEDS: Vitamins A & D Oint UD Foilpak TOP SCH ×2 (10:26→17:59)
[2018-11-19] MEDS: COLISTIMETHATE IV SCH ×2 (10:26→21:41)
[2018-11-19] MEDS: SODIUM CHLORIDE 0.9% IV SCH ×2 (10:26→21:41)
[2018-11-19] MEDS: Valproic Acid 250 mg/5 ml UD Cup PO SCH ×2 (14:26→21:41)
[2018-11-19] MEDS ORDERED: COLISTIMETHATE IV SCH (14:30)
[2018-11-19] MEDS ORDERED: SODIUM CHLORIDE 0.9% IV SCH (14:30)
[2018-11-19] MEDS ORDERED: Potassium Phosphate 15 MMOLE in Sodium Chloride 0.9% 250 ML IV ONE (16:00)
--- NOTE | 2018-11-19 16:04 | CP.PCM.PN ---
Subjective - Date & Time of Evaluation Date of Evaluation: 11/19/18 Time of Evaluation: 11:00 - Subjective Subjective: clinically same Objective - Vital Signs/Intake and Output Vital Signs (last 24 hours): Temp Pulse Resp BP Pulse Ox 98.0 F 55 L 18 166/63 H 100 11/19/18 12:00 11/19/18 12:07 11/19/18 12:07 11/19/18 12:07 11/19/18 12:07 Intake and Output: 11/19/18 11/19/18 06:59 18:59 Intake Total 680 Output Total 680 Balance 0 - Medications Medications: Current Medications Bisacodyl (Dulcolax) 10 mg IA ONCE PRN PRN Reason: Constipation Enoxaparin Sodium (Lovenox) 40 mg SC DAILY [facility] Last Admin: 11/19/18 10:25 Dose: 40 mg Famotidine (Pepcid) 20 mg GT Q12 [facility] Last Admin: 11/19/18 10:25 Dose: 20 mg Ceftazidime/Avibactam 2.5 gm/ (Sodium Chloride) 100 mls @ 50 mls/hr IV Q8H [facility]; Protocol Last Admin: 11/19/18 12:08 Dose: 50 mls/hr Colistimethate Sodium 60 mg/ (Sodium Chloride) 100 mls @ 200 mls/hr IV Q12H [facility] Voriconazole 200 mg/ Sodium (Chloride) 100 mls @ 100 mls/hr IVPB Q12H [facility] Last Admin: 11/19/18 14:26 Dose: 100 mls/hr Potassium Phosphate 15 mmole/ (Sodium Chloride) 255 mls @ 63 mls/hr IV ONCE ONE Stop: 11/19/18 20:02 Insulin Human Regular (Novolin R) 0 unit SC Q6H [facility]; Protocol Last Admin: 11/19/18 12:09 Dose: Not Given Levetiracetam (Keppra) 500 mg PO BID [facility] Last Admin: 11/19/18 10:25 Dose: 500 mg Risperidone (Risperdal Tab) 0.5 mg PO BID [facility] Last Admin: 11/19/18 10:26 Dose: 0.5 mg Valproate Sodium (Depakene Oral Soln) 250 mg PO Q12 [facility] Last Admin: 11/19/18 14:26 Dose: 250 mg Vitamin A (Vitamin A & D Oint Ud Foilpak) 1 ea TOP BID [facility] Last Admin: 11/19/18 10:26 Dose: 1 ea - Labs Labs: 11/19/18 06:23 11/19/18 06:23 PT 13.0 SECONDS (9.7-12.2) H 11/14/18 06:02 INR 1.2 11/14/18 06:02 APTT 41 SECONDS (21-34) H 11/13/18 13:48
[2018-11-20] MEDS: (Novolin R) Insulin Human Regular 100 units/ml vial SC SCH ×3 (00:10→18:22)
[2018-11-20 06:05] LABS: BASO % 0.5 % (0.0-2.0); EOS % 0.2 % (0.0-4.0); LYMPH # 2.8 K/uL (1.0-4.3); LYMPH % 25.9 % (20.0-40.0); MEAN CELL VOLUME 79.9 fL (80.0-94.0); MEAN CORPUSCULAR HEMOGLOBIN 25.4 pg (27.0-31.0); MEAN CORPUSCULAR HGB CONC 31.7 g/dL (33.0-37.0); MEAN PLATELET VOLUME 9.3 fL (7.2-11.7); MONO # 0.4 K/uL (0.0-0.8); MONO % 4.1 % (0.0-10.0); NEUT # 7.4 K/uL (1.8-7.0); NEUT % 69.3 % (50.0-75.0); NRBC % 0.1 % (0.0-2.0); RBC 3.95 Mil/uL (4.40-5.90); RED CELL DISTRIBUTION WIDTH 20.6 % (11.5-14.5); WHITE BLOOD COUNT 10.7 K/uL (4.8-10.8)
[2018-11-20 06:47] LABS: ALB/GLOB RATIO 0.6 (1.0-2.1); ALBUMIN 2.8 g/dL (3.5-5.0); ALT/SGPT 25 U/L (21-72); AST/SGOT 27 U/L (17-59); BLOOD UREA NITROGEN 29 mg/dL (9-20); CALCIUM 8.2 mg/dl (8.6-10.4); GFR NON-AFRICAN AMERICAN > 60
[2018-11-20] MEDS: Valproic Acid 250 mg/5 ml UD Cup PO SCH ×2 (10:47→22:40)
[2018-11-20] MEDS: levETIRAcetam 100 mg/ml (5ml) Oral Syringe PO SCH ×2 (10:47→18:21)
[2018-11-20] MEDS: Enoxaparin 40 mg Syringe SC SCH (10:49)
[2018-11-20] MEDS: SODIUM CHLORIDE 0.9% IV SCH ×2 (10:51→22:40)
[2018-11-20] MEDS: COLISTIMETHATE IV SCH ×2 (10:51→22:40)
[2018-11-20] MEDS: Vitamins A & D Oint UD Foilpak TOP SCH ×2 (10:52→18:24)
--- NOTE | 2018-11-20 14:03 | CP.PCM.PN ---
Subjective - Date & Time of Evaluation Date of Evaluation: 11/20/18 Time of Evaluation: 14:00 - Subjective Subjective: dictated Objective - Vital Signs/Intake and Output Vital Signs (last 24 hours): Temp Pulse Resp BP Pulse Ox 97.8 F 90 27 H 153/81 H 90 L 11/20/18 04:00 11/20/18 08:00 11/20/18 04:00 11/20/18 04:07 11/20/18 04:00 Intake and Output: 11/20/18 11/20/18 06:59 18:59 Intake Total 550 Output Total 701 Balance -151 - Medications Medications: Current Medications Bisacodyl (Dulcolax) 10 mg ME ONCE PRN PRN Reason: Constipation Enoxaparin Sodium (Lovenox) 40 mg SC DAILY [facility] Last Admin: 11/20/18 10:49 Dose: 40 mg Famotidine (Pepcid) 20 mg GT Q12 [facility] Last Admin: 11/20/18 10:49 Dose: 20 mg Ceftazidime/Avibactam 2.5 gm/ (Sodium Chloride) 100 mls @ 50 mls/hr IV Q8H [facility]; Protocol Last Admin: 11/20/18 04:43 Dose: 50 mls/hr Colistimethate Sodium 60 mg/ (Sodium Chloride) 100 mls @ 200 mls/hr IV Q12H [facility] Last Admin: 11/20/18 10:51 Dose: 200 mls/hr Voriconazole 200 mg/ Sodium (Chloride) 100 mls @ 100 mls/hr IVPB Q12H [facility] Last Admin: 11/20/18 01:31 Dose: 100 mls/hr Insulin Human Regular (Novolin R) 0 unit SC Q6H [facility]; Protocol Last Admin: 11/20/18 06:27 Dose: 3 u Levetiracetam (Keppra) 500 mg PO BID [facility] Last Admin: 11/20/18 10:47 Dose: 500 mg Risperidone (Risperdal Tab) 0.5 mg PO BID [facility] Last Admin: 11/20/18 10:48 Dose: 0.5 mg Valproate Sodium (Depakene Oral Soln) 250 mg PO Q12 [facility] Last Admin: 11/20/18 10:47 Dose: 250 mg Vitamin A (Vitamin A & D Oint Ud Foilpak) 1 ea TOP BID [facility] Last Admin: 11/20/18 10:52 Dose: 1 ea - Labs Labs: 11/20/18 05:57 11/20/18 05:57 PT 13.0 SECONDS (9.7-12.2) H 11/14/18 06:02 INR 1.2 11/14/18 06:02 APTT 41 SECONDS (21-34) H 11/13/18 13:48
--- NOTE | 2018-11-20 17:04 | CP.PCM.PN ---
Subjective - Date & Time of Evaluation Date of Evaluation: 11/20/18 Time of Evaluation: 17:01 - Subjective Subjective: PATIENT SEEN AND EXAMINED FAMILY AT THE BEDSIDE THE WAS UPDATE ABOUT THE PATIENT CONDITION ANDREW ACH WAS RECOMMENDED AND THE WAS IN AGREEMENT WITH THE PLAN Objective - Vital Signs/Intake and Output Vital Signs (last 24 hours): Temp Pulse Resp BP Pulse Ox 97.8 F 90 27 H 153/81 H 90 L 11/20/18 04:00 11/20/18 08:00 11/20/18 04:00 11/20/18 04:07 11/20/18 04:00 Intake and Output: 11/20/18 11/20/18 06:59 18:59 Intake Total 550 Output Total 701 Balance -151 - Medications Medications: Current Medications Bisacodyl (Dulcolax) 10 mg HI ONCE PRN PRN Reason: Constipation Enoxaparin Sodium (Lovenox) 40 mg SC DAILY [facility] Last Admin: 11/20/18 10:49 Dose: 40 mg Famotidine (Pepcid) 20 mg GT Q12 [facility] Last Admin: 11/20/18 10:49 Dose: 20 mg Ceftazidime/Avibactam 2.5 gm/ (Sodium Chloride) 100 mls @ 50 mls/hr IV Q8H [facility]; Protocol Last Admin: 11/20/18 04:43 Dose: 50 mls/hr Colistimethate Sodium 60 mg/ (Sodium Chloride) 100 mls @ 200 mls/hr IV Q12H [facility] Last Admin: 11/20/18 10:51 Dose: 200 mls/hr Voriconazole 200 mg/ Sodium (Chloride) 100 mls @ 100 mls/hr IVPB Q12H [facility] Last Admin: 11/20/18 01:31 Dose: 100 mls/hr Insulin Human Regular (Novolin R) 0 unit SC Q6H [facility]; Protocol Last Admin: 11/20/18 06:27 Dose: 3 u Levetiracetam (Keppra) 500 mg PO BID [facility] Last Admin: 11/20/18 10:47 Dose: 500 mg Risperidone (Risperdal Tab) 0.5 mg PO BID [facility] Last Admin: 11/20/18 10:48 Dose: 0.5 mg Valproate Sodium (Depakene Oral Soln) 250 mg PO Q12 [facility] Last Admin: 11/20/18 10:47 Dose: 250 mg Vitamin A (Vitamin A & D Oint Ud Foilpak) 1 ea TOP BID [facility] Last Admin: 11/20/18 10:52 Dose: 1 ea - Labs Labs: 11/20/18 05:57 11/20/18 05:57 PT 13.0 SECONDS (9.7-12.2) H 11/14/18 06:02 INR 1.2 11/14/18 06:02 APTT 41 SECONDS (21-34) H 11/13/18 13:48 Assessment and Plan - Assessment and Plan (Free Text) Assessment: PLACE UNDER THE SERVICE OF DR Mary SARMIENTO AT [facility] CONTINUE HOME MEDICATION NEW PRESCRIPTION AVYCAZ 2.5 GM IVPB FOR 2 MORE DAYS VFEND 200 MG IVPB FOR 13 DAYS THEN SWITCH TO PO VFEND 200 Q12H FOR 14 DAYS ACTIVITY TOLERATED CALL DR Mary SARMIENTO FOR FURTHER ORDER
--- NOTE | 2018-11-20 17:14 | CP.PCM.PN ---
Subjective - Date & Time of Evaluation Date of Evaluation: 11/20/18 Time of Evaluation: 14:00 - Subjective Subjective: PGY2 Pulm Note for Dr. Tafoya Patient seen and examined this morning at bedside. Patient is sitting up in chair next to bed, saturating at 100% on NC @3L. Patient is pending discharge today. Objective - Vital Signs/Intake and Output Vital Signs (last 24 hours): Temp Pulse Resp BP Pulse Ox 97.8 F 90 27 H 153/81 H 90 L 11/20/18 04:00 11/20/18 08:00 11/20/18 04:00 11/20/18 04:07 11/20/18 04:00 Intake and Output: 11/20/18 11/20/18 06:59 18:59 Intake Total 550 Output Total 701 Balance -151 - Medications Medications: Current Medications Bisacodyl (Dulcolax) 10 mg CO ONCE PRN PRN Reason: Constipation Enoxaparin Sodium (Lovenox) 40 mg SC DAILY [facility] Last Admin: 11/20/18 10:49 Dose: 40 mg Famotidine (Pepcid) 20 mg GT Q12 [facility] Last Admin: 11/20/18 10:49 Dose: 20 mg Ceftazidime/Avibactam 2.5 gm/ (Sodium Chloride) 100 mls @ 50 mls/hr IV Q8H [facility]; Protocol Last Admin: 11/20/18 04:43 Dose: 50 mls/hr Colistimethate Sodium 60 mg/ (Sodium Chloride) 100 mls @ 200 mls/hr IV Q12H [facility] Last Admin: 11/20/18 10:51 Dose: 200 mls/hr Voriconazole 200 mg/ Sodium (Chloride) 100 mls @ 100 mls/hr IVPB Q12H [facility] Last Admin: 11/20/18 01:31 Dose: 100 mls/hr Insulin Human Regular (Novolin R) 0 unit SC Q6H [facility]; Protocol Last Admin: 11/20/18 06:27 Dose: 3 u Levetiracetam (Keppra) 500 mg PO BID [facility] Last Admin: 11/20/18 10:47 Dose: 500 mg Risperidone (Risperdal Tab) 0.5 mg PO BID [facility] Last Admin: 11/20/18 10:48 Dose: 0.5 mg Valproate Sodium (Depakene Oral Soln) 250 mg PO Q12 [facility] Last Admin: 11/20/18 10:47 Dose: 250 mg Vitamin A (Vitamin A & D Oint Ud Foilpak) 1 ea TOP BID [facility] Last Admin: 11/20/18 10:52 Dose: 1 ea - Labs Labs: 11/20/18 05:57 11/20/18 05:57 PT 13.0 SECONDS (9.7-12.2) H 11/14/18 06:02 INR 1.2 11/14/18 06:02 APTT 41 SECONDS (21-34) H 11/13/18 13:48 - Additional Findings Additional findings: - Constitutional Appears: No Acute Distress, Chronically Ill - Head Exam Head Exam: ATRAUMATIC, NORMOCEPHALIC - Eye Exam Eye Exam: Normal appearance - ENT Exam ENT Exam: Mucous Membranes Moist - Respiratory Exam Respiratory Exam: Rales, Rhonchi. absent: Accessory Muscle Use, Wheezes, Respiratory Distress - Cardiovascular Exam Cardiovascular Exam: REGULAR RHYTHM - GI/Abdominal Exam GI & Abdominal Exam: Soft. absent: Distended, Firm, Guarding, Rigid, Tenderness - Extremities Exam Additional comments: SCDs and pressure ulcer boots in place - Neurological Exam Neurological Exam: Alert, Awake - Skin Skin Exam: Dry, Warm Assessment and Plan (1) Pneumonia Assessment & Plan: Continue antibiotics for Acinetobacer Continue nebulizer treatments Continue oxygen NC @3L Stable from pulm standpoint Status: Acute (2) Sepsis Status: Acute (3) Acute respiratory failure with hypoxemia Status: Acute
--- NOTE | 2018-11-20 21:18 | CP.PCM.PN ---
Subjective - Date & Time of Evaluation Date of Evaluation: 11/20/18 Time of Evaluation: 10:45 - Subjective Subjective: clinically same Objective - Vital Signs/Intake and Output Vital Signs (last 24 hours): Temp Pulse Resp BP Pulse Ox 98.3 F 112 H 26 H 131/91 H 96 11/20/18 16:00 11/20/18 20:07 11/20/18 20:07 11/20/18 20:07 11/20/18 20:07 Intake and Output: 11/20/18 11/21/18 18:59 06:59 Output Total 300 Balance -300 - Medications Medications: Current Medications Bisacodyl (Dulcolax) 10 mg NC ONCE PRN PRN Reason: Constipation Enoxaparin Sodium (Lovenox) 40 mg SC DAILY [facility] Last Admin: 11/20/18 10:49 Dose: 40 mg Famotidine (Pepcid) 20 mg GT Q12 [facility] Last Admin: 11/20/18 10:49 Dose: 20 mg Ceftazidime/Avibactam 2.5 gm/ (Sodium Chloride) 100 mls @ 50 mls/hr IV Q8H [facility]; Protocol Last Admin: 11/20/18 20:18 Dose: 50 mls/hr Colistimethate Sodium 60 mg/ (Sodium Chloride) 100 mls @ 200 mls/hr IV Q12H [facility] Last Admin: 11/20/18 10:51 Dose: 200 mls/hr Voriconazole 200 mg/ Sodium (Chloride) 100 mls @ 100 mls/hr IVPB Q12H [facility] Last Admin: 11/20/18 01:31 Dose: 100 mls/hr Insulin Human Regular (Novolin R) 0 unit SC Q6H [facility]; Protocol Last Admin: 11/20/18 18:22 Dose: 3 u Levetiracetam (Keppra) 500 mg PO BID [facility] Last Admin: 11/20/18 18:21 Dose: 500 mg Risperidone (Risperdal Tab) 0.5 mg PO BID [facility] Last Admin: 11/20/18 18:23 Dose: 0.5 mg Valproate Sodium (Depakene Oral Soln) 250 mg PO Q12 [facility] Last Admin: 11/20/18 10:47 Dose: 250 mg Vitamin A (Vitamin A & D Oint Ud Foilpak) 1 ea TOP BID [facility] Last Admin: 11/20/18 18:24 Dose: 1 ea - Labs Labs: 11/20/18 05:57 11/20/18 05:57 PT 13.0 SECONDS (9.7-12.2) H 11/14/18 06:02 INR 1.2 11/14/18 06:02 APTT 41 SECONDS (21-34) H 11/13/18 13:48
[2018-11-21] MEDS: (Novolin R) Insulin Human Regular 100 units/ml vial SC SCH ×2 (00:15→06:09)
[2018-11-21 02:39] VITALS: O2SAT 100
[2018-11-21 06:40] LABS: EOS # 0.1 K/uL (0.0-0.7); HEMOGLOBIN 9.9 g/dL (12.0-18.0); LYMPH # 2.9 K/uL (1.0-4.3); LYMPH % 24.9 % (20.0-40.0); MEAN CELL VOLUME 79.8 fL (80.0-94.0); MEAN CORPUSCULAR HEMOGLOBIN 24.9 pg (27.0-31.0); MEAN CORPUSCULAR HGB CONC 31.2 g/dL (33.0-37.0); MEAN PLATELET VOLUME 9.6 fL (7.2-11.7); MONO # 0.3 K/uL (0.0-0.8); MONO % 2.7 % (0.0-10.0); NEUT # 8.2 K/uL (1.8-7.0); NEUT % 71.4 % (50.0-75.0); NRBC % 0.1 % (0.0-2.0); RBC 3.98 Mil/uL (4.40-5.90); RED CELL DISTRIBUTION WIDTH 20.8 % (11.5-14.5); WHITE BLOOD COUNT 11.5 K/uL (4.8-10.8)
[2018-11-21 06:59] LABS: ALB/GLOB RATIO 0.7 (1.0-2.1); ALBUMIN 2.7 g/dL (3.5-5.0); ALT/SGPT 16 U/L (21-72); AST/SGOT 14 U/L (17-59); BLOOD UREA NITROGEN 27 mg/dL (9-20); CALCIUM 8.3 mg/dl (8.6-10.4); GFR NON-AFRICAN AMERICAN > 60
[2018-11-21] MEDS: Valproic Acid 250 mg/5 ml UD Cup PO SCH (09:02)
[2018-11-21] MEDS: levETIRAcetam 100 mg/ml (5ml) Oral Syringe PO SCH (09:02)
[2018-11-21] MEDS: Enoxaparin 40 mg Syringe SC SCH (09:02)
[2018-11-21] MEDS: COLISTIMETHATE IV SCH (09:03)
[2018-11-21] MEDS: Vitamins A & D Oint UD Foilpak TOP SCH (09:03)
[2018-11-21] MEDS: SODIUM CHLORIDE 0.9% IV SCH (09:03)
[2018-11-21 12:34] VITALS: BP 133/79; PULSE 79; RESP 19; TEMP 98.2
--- NOTE | 2018-11-21 21:00 | OP ---
PROCEDURE DATE: 11/14/2018 PREOPERATIVE DIAGNOSIS: Hypercapnic respiratory failure. POSTOPERATIVE DIAGNOSIS: Hypercapnic respiratory failure. PROCEDURES: 1. Esophagogastroduodenoscopy. 2. Insertion of percutaneous endoscopic gastrostomy tube. SURGEON: Leon Linares MD HOME APPLIANCE INSTALLER: Satnam Simpson DO, PGY4 ANESTHESIA: General. ANESTHESIOLOGIST: As per record. INDICATIONS: As above. COMPLICATIONS: None. SPECIMENS: None. ESTIMATED BLOOD LOSS: Minimal. PROCEDURE IN DETAIL: The patient was identified by the operating room staff and placed supine on to the operating room table. The patient already had monitoring lines, intravenous access, and was under mechanical ventilatory support. General anesthesia was induced uneventfully. The patient was laid supine with arms tucked and all pressure points appropriately padded. His upper abdomen was shaved, prepped, and draped in the usual sterile fashion. The table was placed in slight reverse Trendelenburg position. An adult EGD scope was passed into the posterior pharynx and into the esophagus uneventfully. There was no noticeable esophageal pathology. The stomach was entered uneventfully. There was evidence of some gastritis, but no other overt gastric pathology. Utilizing transillumination, an area along the greater curvature in the body of the stomach was identified in the left upper quadrant well below the costal margin as a potential site for insertion of the gastrostomy tube. That area of the abdomen was prepped and draped in the usual sterile fashion. Local anesthetic was provided in the area of the transillumination. A stab wound was created and a finder needle introduced uneventfully with sheath within the body of the stomach. The guidewire was placed through the sheath and introduced within the stomach proper. This guidewire was then picked up by another loop catheter through the working channel of the scope and exteriorized through the patient's mouth. That looped guidewire now had the percutaneous endoscope at the gastrostomy tube attached to it, lubricated, and then guided down through the esophagus and out the gastric puncture site and ultimately out of the skin puncture wound in the left upper quadrant. Excess plastic tubing was discarded. EGD scope was reintroduced uneventfully and guided down to the stomach. The gastrostomy tube was in good position. The hub was pressed up against the gastric wall. There were no untoward findings. Superficially, the gastrostomy tube was anchored with the rubber stopper at 4 points. It was attached to drainage bag and placed on gravity. The scope was removed after evacuating all air and gastric contents. The patient was then allowed to awaken from general anesthesia and placed within the ICU bed in stable condition. He was transferred back to the ICU with no hemodynamic changes and no respiratory changes. All counts were correct x2. Leon Linares M.D.
== END 2018-11-21 10:25 | DRG 870 ==
LOC: C.ER 16:18 → C.9E 17:44 → C.9I 18:32
PROVIDERS: ADMIT Internal Medicine Nephrology; ATTEND Internal Medicine Nephrology
PROC: 5A1955Z Respiratory Ventilation, Greater than 96 Consecutive Hours (ICD-10-PCS; principal; 2018-11-03)
PROC: 0BH17EZ Insertion of Endotracheal Airway into Trachea, Via Natural or Artificial Opening (ICD-10-PCS; 2018-11-03)
PROC: 02HV33Z Insertion of Infusion Device into Superior Vena Cava, Percutaneous Approach (ICD-10-PCS; 2018-11-05)
PROC: 0DH63UZ Insertion of Feeding Device into Stomach, Percutaneous Approach (ICD-10-PCS; 2018-11-14)
PROC: 3E0G76Z Introduction of Nutritional Substance into Upper GI, Via Natural or Artificial Opening (ICD-10-PCS; 2018-11-14)
DX: A41.1 Sepsis due to other specified staphylococcus (principal); J18.9 Pneumonia, unspecified organism; R65.21 Severe sepsis with septic shock; J96.91 Respiratory failure, unspecified with hypoxia; J96.92 Respiratory failure, unspecified with hypercapnia; G82.20 Paraplegia, unspecified; N17.9 Acute kidney failure, unspecified; F41.9 Anxiety disorder, unspecified; G30.9 Alzheimer's disease, unspecified; F02.80 Dementia in other diseases classified elsewhere, unspecified severity, without behavioral disturbance, psychotic disturbance, mood disturbance, and anxiety; E11.9 Type 2 diabetes mellitus without complications; M19.90 Unspecified osteoarthritis, unspecified site; E78.00 Pure hypercholesterolemia, unspecified; I10 Essential (primary) hypertension; I69.369 Other paralytic syndrome following cerebral infarction affecting unspecified side; I35.8 Other nonrheumatic aortic valve disorders